=== PATIENT | male | born 1940 | race African-American/Black ===

== ENCOUNTER → 2016-05-27 | Outpatient (CLI) | payer MEDICARE | LOC: OD 14:50 | PROVIDERS: ATTEND Internal Medicine Geriatric Medicine | DX: I50.23 Acute on chronic systolic (congestive) heart failure (principal) | CPT/HCPCS: 36415; 83880 ==

== ENCOUNTER → 2016-06-12 | Outpatient (CLI) | payer MEDICARE | LOC: SP 07:16 | PROVIDERS: ATTEND Internal Medicine Geriatric Medicine | DX: R60.0 Localized edema (principal) | CPT/HCPCS: 93970 ==

== ENCOUNTER 2016-10-11 10:59 | Inpatient (IN) | payer MEDICARE ==
[2016-10-11] MEDS: NORMAL SALINE 1000 ML 1,000 ML IV PRN ×2 (12:04→21:13)
[2016-10-11 12:08] LABS: ABSOLUTE EOSINOPHILS # (AUTO) 0.2 10^3/uL (0.0-0.6); ABSOLUTE LYMPHOCYTES (AUTO) 0.8 10^3/uL (0.5-4.7); ABSOLUTE MONOCYTES (AUTO) 0.5 10^3/uL (0.1-1.4); ABSOLUTE NEUT (AUTO) 3.5 10^3/uL (1.7-8.2); EOSINOPHILS % (AUTO) 3.6 % (0-6); HEMATOCRIT 30.4 % (37.9-51.0); HEMOGLOBIN 9.6 g/dL (13.5-17.0); HGB HCT DIFFERENCE -1.6; LYMPHOCYTES % (AUTO) 15.8 % (13-45); MEAN CORPUSCULAR HEMOGLOBIN 28.3 pg (27.0-33.4); MEAN CORPUSCULAR HGB CONC 31.7 g/dL (32.0-36.0); MEAN CORPUSCULAR VOLUME 89 fl (80-97); MONOCYTES % (AUTO) 10.7 % (3-13); RED BLOOD COUNT 3.41 10^6/uL (4.35-5.55); RED CELL DISTRIBUTION WIDTH 16.1 % (11.5-14.0); SEGMENTED NEUTROPHILS % (AUTO) 68.9 % (42-78)
[2016-10-11 12:28] LABS: ALANINE AMINOTRANSFERASE 24 U/L (21-72); ALKALINE PHOSPHATASE 128 U/L (38-126); ANION GAP 12 (5-19); ASPARTATE AMINO TRANSFERASE 18 U/L (17-59); BILIRUBIN,DIRECT 0.3 mg/dL (0.0-0.4); BILIRUBIN,TOTAL 0.3 mg/dL (0.2-1.3); BLOOD UREA NITROGEN 64 mg/dL (7-20); CALCIUM 10.5 mg/dL (8.4-10.2); CARBON DIOXIDE 24 mmol/L (22-30); CHLORIDE 109 mmol/L (98-107); GLUCOSE 111 mg/dL (75-110); POTASSIUM 5.7 mmol/L (3.6-5.0); SODIUM 144.9 mmol/L (137-145)
--- NOTE | 2016-10-11 13:02 | EKG REPORT ---
SEVERITY:- ABNORMAL ECG - SINUS ARRHYTHMIA, RATE 50-75 LOW VOLTAGE IN FRONTAL LEADS ABNORMAL T, CONSIDER ISCHEMIA, ANT-LAT LEADS : Confirmed by: Fernando Wisdom MD 11-Oct-2016 13:02:13
[2016-10-11 13:23] LABS: APPEARANCE,URINE CLEAR; BILIRUBIN,URINE NEGATIVE (NEGATIVE); GLUCOSE, URINE NEGATIVE (NEGATIVE); KETONES,URINE NEGATIVE (NEGATIVE); LEUKOCYTE ESTERASE,URINE NEGATIVE (NEGATIVE); NITRITE,URINE NEGATIVE (NEGATIVE); PROTEIN,URINE 30 mg/dL (NEGATIVE); URINE SPECIFIC GRAVITY 1.005; UROBILINOGEN,URINE NEGATIVE mg/dL (<2.0)
[2016-10-11] MEDS: HEPARIN SOD (PORCINE) 5,000 UNIT/ML 1 ML SYRINGE SUBCUT SCH ×2 (13:54→21:06)
--- NOTE | 2016-10-11 16:03 | PDOC CONSULTATION ---
Consultation Consult Date: 10/11/16 Attending physician:: HIMA SHELTON Consult reason:: Yong has been Dr. Shelton to see the patient because of acute worsening kidney function. History of Present Illness Admission Date/PCP: 10/11/16 10:59 HIMA SHELTON History of Present Illness: SORIN PINEDA is a 76 year old male who was directly admitted by Dr. Shelton with history of hypertension, coronary artery disease with pacemaker and defibrillator, borderline diabetes and hyperlipidemia who was found to have elevated BUN and creatinine of 61 and 4.36 with estimated GFR of 14 on October 09 associated with potassium of 5.[address] Shelton told me that his baseline creatinine was 1.59 in July. Patient is unaware of any kidney disease. He seems to be pretty much asymptomatic and does not complain of anything. He said he saw Dr. Shelton on the October 09 and had blood drawn and this morning he was called to be admitted here in the hospital. He denies any chest pains , shortness of breath, nausea, vomiting, diarrhea, nor any other pain. Said he is eating good and drinking fluids without any problems. Denies any problem with urination and has not noticed any decrease in urine output or blood in the urine. He denies feeling dehydrated. He denies any known kidney disease no history of kidney stones. He denies any history of enlarged prostate. He denies using any nonsteroidal anti-inflammatory agents. Overall he feels good. He related that he started having leg swelling about 2 months ago and he was started on Lasix 40 mg daily. This swelling has improved significantly after that. He denies any other complaints otherwise. Past Medical History Cardiac Medical History: Reports: Coronary Artery Disease, Hyperlipidemia, Hypertension-primary, Myocardial Infarction Endocrine Medical History: Reports: Diabetes Mellitus Type 2 - Borderline Renal/ Medical History: Reports: Other - Renal cyst Hematology Medical History: Reports Other - Vitamin D deficiency Past Surgical History Past Surgical History: Reports: Coronary Stent, Internal Defibrillator, Orthopedic Surgery - Right clavicle fracture repair, Pacemaker, Other - Head injury requiring metal plate in his skull Social History Information Source: Patient Lives with: Spouse/Significant other Smoking Status: Former Smoker - Quit 50 years ago Last Time Smoked: 1959 Frequency of Alcohol Use: None - Quit 50 years ago Hx Recreational Drug Use: No Drugs: None Hx Prescription Drug Abuse: No Family History Family History: CAD - Mother and father Parental Family History Reviewed: Yes Children Family History Reviewed: Unknown Sibling(s) Family History Reviewed.: Unknown Medication/Allergy Home Medications: Aspirin [Ecotrin 81 mg EC Tablet] 81 mg PO DAILY 10/11/16 Atorvastatin Calcium 40 mg PO QHS 10/11/16 Carvedilol 3.125 mg PO Q12 10/11/16 Furosemide [Lasix] 40 mg PO DAILY 10/11/16 Hydralazine HCl 50 mg PO Q8 10/11/16 Sitagliptin Phosphate [Januvia 25 mg Tablet] 25 mg PO DAILY 10/11/16 Tramadol HCl 50 mg PO Q12 10/11/16 Allergies/Adverse Reactions: No Known Allergies Allergy (Unverified 10/11/16 11:24) Review of Systems All systems: reviewed and no additional remarkable complaints except as stated Review of Systems: Constitutional: ABSENT: chills, fatigue, fever(s), headache(s), weight gain, weight loss Eyes: ABSENT: visual disturbances Ears: ABSENT: hearing changes Cardiovascular: ABSENT: chest pain, dyspnea on exertion, orthropnea, palpitations; admits edema Respiratory: ABSENT: cough, dyspnea, hemoptysis Gastrointestinal: ABSENT: abdominal pain, constipation, diarrhea, hematemesis, hematochezia, nausea, vomiting Genitourinary: ABSENT: dysuria, hematuria Musculoskeletal: ABSENT: joint swelling Integumentary: ABSENT: rash, wounds Neurological: ABSENT: abnormal gait, abnormal speech, confusion, dizziness, focal weakness, numbness, syncope Psychiatric:ABSENT: anxiety, depression Endocrine: ABSENT: cold intolerance, heat intolerance, polydipsia, polyuria Hematologic/Lymphatic: ABSENT: easy bleeding, easy bruising, lymphadenopathy Physical Exam Vital Signs: Temp Pulse Resp BP Pulse Ox 98.6 F 74 16 124/65 99 10/11/16 11:26 10/11/16 11:26 10/11/16 11:26 10/11/16 11:26 10/11/16 11:26 Intake & Output 10/10/16 10/11/16 10/12/16 06:59 06:59 06:59 Weight 92 kg Exam: General appearance: no acute distress, cooperative, well-developed, well- nourished Head exam: PRESENT: atraumatic, normocephalic, he has a scar on his left forehead Eye exam: PRESENT: Conjunctiva slightly pale, EOMI, PERRLA. ABSENT: conjunctival injection, scleral icterus Mouth exam: PRESENT: moist, neck supple, tongue midline Neck exam: PRESENT: full ROM. ABSENT: carotid bruit, JVD, lymphadenopathy, thyromegaly Respiratory exam: PRESENT: clear to auscultation bilaterally. ABSENT: rales, rhonchi, stridor, wheezes Cardiovascular exam: PRESENT: RRR, +S1, +S2. Pacemaker/defibrillator present in the left upper chest ABSENT: systolic murmur Pulses: PRESENT: normal radial pulses, normal dorsalis pedis pulses GI/Abdominal exam: PRESENT: normal bowel sounds, soft. ABSENT: guarding, mass, tenderness Rectal exam: deferred Extremities exam: PRESENT: full ROM. Trace bilateral lower extremity pitting edema ABSENT: calf tenderness Musculoskeletal: PRESENT: full ROM. ABSENT: deformity Neurological exam: PRESENT: alert, Awake, Oriented to person, Oriented to place , Oriented to time, reflexes normal, CN II-XII grossly intact. ABSENT: motor sensory deficit Psychiatric exam: PRESENT: appropriate affect, normal mood. ABSENT: homicidal ideation, suicidal ideation Skin exam: PRESENT: intact, dry, warm. ABSENT: rash Results Laboratory Results: 10/11/16 11:57 10/11/16 11:57 10/11/16 10/11/16 10/11/16 11:57 11:57 13:05 WBC 5.0 RBC 3.41 L Hgb 9.6 L Hct 30.4 L MCV 89 MCH 28.3 MCHC 31.7 L RDW 16.1 H Plt Count 165 Seg Neutrophils % 68.9 Lymphocytes % 15.8 Monocytes % 10.7 Eosinophils % 3.6 Basophils % 1.0 Absolute Neutrophils 3.5 Absolute Lymphocytes 0.8 Absolute Monocytes 0.5 Absolute Eosinophils 0.2 Absolute Basophils 0.0 Sodium 144.9 Potassium 5.7 H Chloride 109 H Carbon Dioxide 24 Anion Gap 12 BUN 64 H Creatinine 4.50 H Est GFR ( Amer) 15 L Est GFR (Non-Af Amer) 13 L Glucose 111 H Calcium 10.5 H Total Bilirubin 0.3 AST 18 ALT 24 Alkaline Phosphatase 128 H Total Protein 7.0 Albumin 4.0 Urine Color STRAW Urine Appearance CLEAR Urine pH 7.0 Ur Specific [place] 1.005 Urine Protein 30 H Urine Glucose (UA) NEGATIVE Urine Ketones NEGATIVE Urine Blood NEGATIVE Urine Nitrite NEGATIVE Ur Leukocyte Esterase NEGATIVE Urine RBC (Auto) 0 Assessment & Plan - Diagnosis (1) Acute kidney injury superimposed on chronic kidney disease Is this a current diagnosis for this admission?: YesPlan: Patient is very asymptomatic. Possible causes of acute worsening of kidney function include possible prerenal azotemia due to possible overdiuresis although patient does not seem to be clinically dehydrated or volume depleted, we need to rule out post renal cause including obstructive uropathy in this elderly gentleman. He has very minimal trace proteinuria and urinalysis and no hematuria so doubt any acute glomerulonephritis. Agree with obtaining kidney ultrasound. Agree with initiation of cautious IV fluid hydration, withholding Lasix or any other diuretics, and avoid nephrotoxic agents. Patient needs to be on low potassium prerenal diet. Also advised the patient and her family at bedside including daughters and granddaughter regarding diet. At this time there is really no indication for any urgent renal replacement therapy. Continue to monitor kidney function and urine output. (2) Hyperkalemia Is this a current diagnosis for this admission?: YesPlan: Low potassium diet. No IV fluids is expected to lower down potassium. (3) Anemia Is this a current diagnosis for this admission?: YesPlan: Needs some anemia workup. Possible causes include anemia of chronic kidney disease or iron deficiency. (4) Hypertension Qualifiers: Hypertension type: essential hypertension Qualified Code(s): I10 - Essential (primary) hypertension Is this a current diagnosis for this admission?: YesPlan: Currently seems controlled. - Notes Notes: Discussed impression with the patient and her daughters and granddaughter at bedside. Also discussed impression with Dr. Shelton. Thank you very much for this consultation. I will follow the patient with you. - Time Time Spent: 50 to 70 Minutes
--- NOTE | 2016-10-11 16:51 | RADIOLOGY REPORT (SQ) ---
EXAM DESCRIPTION: U/S RETROPERITON LTD COMPLETED DATE/TIME: 10/11/2016 4:10 pm REASON FOR STUDY: Acute renal failure COMPARISON: 12/21/2013 TECHNIQUE: Dynamic and static grayscale images acquired of the kidneys and bladder and recorded on P ACS. Additional selected color Doppler and spectral images recorded. LIMITATIONS: None. FINDINGS: RIGHT KIDNEY: 15.5 cm. Normal echogenicity. No solid masses. There is a 75 mm lower pole cyst. No hydronephrosis. No calcifications. LEFT KIDNEY: 8.5 cm. Normal echogenicity. No solid masses. There is a 29 mm upper pole cyst. No hydronephrosis. No calcifications. BLADDER: The urinary bladder was not imaged. OTHER FINDINGS: No other significant finding. IMPRESSION: Renal cysts as described. TECHNICAL DOCUMENTATION: JOB ID: [id number] [employer]- All Rights Reserved
[2016-10-11] MEDS ORDERED: DEXTROSE 40% GEL 15 GM TUBE PO PRN ×2 (16:59)
[2016-10-11] MEDS ORDERED: INSULIN LISPRO 100 UNIT/ML 3 ML VIAL SUBCUT PRN (16:59)
[2016-10-11] MEDS ORDERED: DEXTROSE 50%-WATER 25 GM/50 ML DISP.SYRIN IV PRN ×2 (16:59)
[2016-10-11] MEDS ORDERED: GLUCAGON,HUMAN RECOMB 1 MG INJ IM PRN (16:59)
--- NOTE | 2016-10-11 17:40 | PDOC H&P ---
History of Present Illness Admission Date/PCP: 10/11/16 10:59 HIMA SHELTON History of Present Illness: SORIN PINEDA is a 76 year old male known to my practice who was directly admitted to the hospital due to worsening of his renal function. His recent blood chemistry that was completed on 10/09/2016 revealed serum creatinine at 4.36 with hyperkalemia and serum potassium level at 5.6. Patient denied any chest pain, palpitation, nausea, vomiting or diarrhea. He denied OTC NSAID of similar medication usage. He claimed compliance with his prescribed home medication. He was recent taken off Amlodipine/Benazepril due to increase increase in his serum creatinine and potassium level during his last office visit on 10/09/2016. He denied any hematuria, flank pain or significant change in void urine in terms of volume or character. Hi morbidities include hypertension, Diabetes mellitus type 2, CAD, A.Fib post defibrillator implant and hyperlipidemia. Past Medical History Cardiac Medical History: Reports: Coronary Artery Disease, Myocardial Infarction , Hyperlipidema Endocrine Medical History: Reports: Diabetes Mellitus Type 2 - Borderline Renal/ Medical History: Reports: Other - Renal cyst Past Surgical History Past Surgical History: Reports: Coronary Stent, Internal Defibrillator, Orthopedic Surgery - Right clavicle fracture repair, Pacemaker, Other - Head injury requiring metal plate in his skull Social History Lives with: Spouse/Significant other Smoking Status: Former Smoker - Quit 50 years ago Last Time Smoked: 1959 Frequency of Alcohol Use: None - Quit 50 years ago Hx Recreational Drug Use: No Drugs: None Hx Prescription Drug Abuse: No Family History Parental Family History Reviewed: Yes Children Family History Reviewed: Yes Sibling(s) Family History Reviewed.: Yes Medication/Allergy Home Medications: Aspirin [Ecotrin 81 mg EC Tablet] 81 mg PO DAILY 10/11/16 Atorvastatin Calcium 40 mg PO QHS 10/11/16 Carvedilol 3.125 mg PO Q12 10/11/16 Furosemide [Lasix] 40 mg PO DAILY 10/11/16 Hydralazine HCl 50 mg PO Q8 10/11/16 Sitagliptin Phosphate [Januvia 25 mg Tablet] 25 mg PO DAILY 10/11/16 Tramadol HCl 50 mg PO Q12 10/11/16 Allergies/Adverse Reactions: No Known Allergies Allergy (Unverified 10/11/16 11:24) Review of Systems Constitutional: ABSENT: chills, fever(s), headache(s), weight gain, weight loss Eyes: ABSENT: visual disturbances Ears: ABSENT: hearing changes Nose, Mouth, and Throat: ABSENT: as per HPI, headache(s), mouth pain, sore throat, vertigo, other Cardiovascular: ABSENT: chest pain, dyspnea on exertion, edema, orthropnea, palpitations Respiratory: ABSENT: cough, hemoptysis Gastrointestinal: ABSENT: abdominal pain, constipation, diarrhea, hematemesis, hematochezia, nausea, vomiting Genitourinary: ABSENT: dysuria, hematuria Musculoskeletal: ABSENT: joint swelling Integumentary: ABSENT: rash, wounds Neurological: ABSENT: abnormal gait, abnormal speech, confusion, dizziness, focal weakness, syncope Psychiatric: ABSENT: anxiety, depression, homidical ideation, suicidal ideation Endocrine: ABSENT: cold intolerance, heat intolerance, polydipsia, polyuria Hematologic/Lymphatic: ABSENT: easy bleeding, easy bruising, lymphadenopathy Physical Exam Vital Signs: Temp Pulse Resp BP Pulse Ox 98.5 F 59 L 18 131/97 H 100 10/11/16 15:40 10/11/16 15:40 10/11/16 15:40 10/11/16 15:40 10/11/16 15:40 Intake & Output 10/10/16 10/11/16 10/12/16 06:59 06:59 06:59 Weight 92 kg General appearance: PRESENT: no acute distress, cooperative, obese Head exam: PRESENT: atraumatic, normocephalic Eye exam: PRESENT: conjunctiva pink, EOMI, PERRLA. ABSENT: scleral icterus Ear exam: PRESENT: normal external ear exam Mouth exam: PRESENT: moist, tongue midline Teeth exam: ABSENT: dental caries, dental tenderness, edentulous, poor dentation , other Throat exam: ABSENT: post pharyngeal erythema, tonsillar erythema, tonsillar exudate, tonsillogmegaly, other Neck exam: PRESENT: full ROM. ABSENT: carotid bruit, JVD, lymphadenopathy, thyromegaly Respiratory exam: PRESENT: clear to auscultation amelia Cardiovascular exam: PRESENT: RRR, +S1, +S2 Pulses: PRESENT: normal dorsalis pedis pul, +2 pedal pulses bilateral Vascular exam: PRESENT: normal capillary refill. ABSENT: pallor GI/Abdominal exam: PRESENT: normal bowel sounds, soft. ABSENT: distended, guarding, mass, organolmegaly, rebound, tenderness Rectal exam: PRESENT: deferred Extremities exam: PRESENT: pedal edema - trace Musculoskeletal exam: PRESENT: deformity - related to multiple joints involvement with arthritis Neurological exam: PRESENT: alert, awake, oriented to person, oriented to place , oriented to time, oriented to situation, CN II-XII grossly intact. ABSENT: motor sensory deficit Psychiatric exam: PRESENT: appropriate affect, normal mood. ABSENT: homicidal ideation, suicidal ideation Skin exam: PRESENT: dry, intact, warm. ABSENT: cyanosis, rash Results Laboratory Results: 10/11/16 11:57 10/11/16 11:57 10/11/16 10/11/16 10/11/16 11:57 11:57 13:05 WBC 5.0 RBC 3.41 L Hgb 9.6 L Hct 30.4 L MCV 89 MCH 28.3 MCHC 31.7 L RDW 16.1 H Plt Count 165 Seg Neutrophils % 68.9 Lymphocytes % 15.8 Monocytes % 10.7 Eosinophils % 3.6 Basophils % 1.0 Absolute Neutrophils 3.5 Absolute Lymphocytes 0.8 Absolute Monocytes 0.5 Absolute Eosinophils 0.2 Absolute Basophils 0.0 Sodium 144.9 Potassium 5.7 H Chloride 109 H Carbon Dioxide 24 Anion Gap 12 BUN 64 H Creatinine 4.50 H Est GFR ( Amer) 15 L Est GFR (Non-Af Amer) 13 L Glucose 111 H Calcium 10.5 H Total Bilirubin 0.3 AST 18 ALT 24 Alkaline Phosphatase 128 H Total Protein 7.0 Albumin 4.0 Urine Color STRAW Urine Appearance CLEAR Urine pH 7.0 Ur Specific [place] 1.005 Urine Protein 30 H Urine Glucose (UA) NEGATIVE Urine Ketones NEGATIVE Urine Blood NEGATIVE Urine Nitrite NEGATIVE Ur Leukocyte Esterase NEGATIVE Urine RBC (Auto) 0 Impressions: Renal Ultrasound 10/11/16 11:30 IMPRESSION: Renal cysts as described. Assessment & Plan - Diagnosis (1) Acute kidney injury superimposed on chronic kidney disease Is this a current diagnosis for this admission?: YesPlan: See admitting physician orders. This is probably due to over diuretic usage. Patient will be started on gentle IV fluid hydration with N/S. Monitor renal indices. Request for renal ultrasound and nephrology input. (2) CKD (chronic kidney disease) stage 5, GFR less than 15 ml/min Is this a current diagnosis for this admission?: YesPlan: See admitting physician orders. This may be due to his Diabetes Mellitus type 2 and Hypertension. With IV fluid hydration t is expected thta his will improve. (3) Diabetes mellitus type 2 with complications Qualifiers: Diabetes mellitus penitentiary insulin use: with penitentiary use Qualified Code(s): E11.8 - Type 2 diabetes mellitus with unspecified complications; Z79.4 - halfway (current) use of insulin Is this a current diagnosis for this admission?: YesPlan: See admitting physician orders. (4) Chronic a-fib Is this a current diagnosis for this admission?: YesPlan: See admitting physician orders. (5) Hypertension Qualifiers: Hypertension type: essential hypertension Qualified Code(s): I10 - Essential (primary) hypertension Is this a current diagnosis for this admission?: YesPlan: See admitting physician orders. (6) CAD (coronary atherosclerotic disease) Qualifiers: Coronary Disease-Associated Artery/Lesion type: unspecified vessel or lesion type Associated angina: angina presence unspecified Is this a current diagnosis for this admission?: YesPlan: See admitting physician orders. (7) HLD (hyperlipidemia) Qualifiers: Hyperlipidemia type: pure hypercholesterolemia Qualified Code(s): E78.00 - Pure hypercholesterolemia, unspecified; E78.0 - Pure hypercholesterolemia Is this a current diagnosis for this admission?: YesPlan: See admitting physician orders. (8) Osteoarthritis involving multiple joints on both sides of body Plan: See admitting physician orders. (9) [place] (myocardial infarction) Plan: See admitting physician orders. (10) Anemia Qualifiers: Anemia type: due to chronic kidney disease Chronic kidney disease stage : stage 5, not on chronic dialysis Qualified Code(s): N18.5 - Chronic kidney disease, stage 5; D63.1 - Anemia in chronic kidney disease Is this a current diagnosis for this admission?: YesPlan: See admitting physician orders. (11) Chronic gout Qualifiers: Gout site: unspecified site Presence of tophus: without tophus Is this a current diagnosis for this admission?: YesPlan: See admitting physician orders. (12) Hyperkalemia Is this a current diagnosis for this admission?: YesPlan: See admitting physician orders. - Time Time Spent: Greater than 70 Minutes Medications reviewed and adjusted accordingly: Yes Anticipated discharge: Home Within: Other - Inpatient Certification Based on my medical assessment, after consideration of the patient's comorbidities, presenting symptoms, or acuity I expect that the services needed warrant INPATIENT care.: Yes I certify that my determination is in accordance with my understanding of Medicare's requirements for reasonable and necessary INPATIENT services [42 CFR 412.3e].: Yes Medical Necessity: Need Close Monitoring Due to Risk of Patient Decompensation, Need For IV Fluids, Need For Continuous Telemetry Monitoring, Risk of Complication if Not Cared For in Hospital 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
[2016-10-11 20:10] LABS: CREATINE KINASE MB 1.06 ng/mL (<4.55); TROPONIN I 0.06 ng/mL
[2016-10-11] MEDS: HYDRALAZINE HCL 50 MG TABLET PO SCH (21:06)
[2016-10-11] MEDS: CARVEDILOL 3.125 MG TABLET PO SCH (21:07)
[2016-10-11] MEDS: ATORVASTATIN CALCIUM 40 MG TABLET PO SCH (21:07)
[2016-10-11] MEDS: TRAMADOL HCL 50 MG TABLET PO SCH (21:08)
[2016-10-11] MEDS ORDERED: HYDRALAZINE HCL 25 MG TABLET PO SCH (22:00)
[2016-10-12 01:50] LABS: CREATINE KINASE MB 1.15 ng/mL (<4.55); TROPONIN I 0.07 ng/mL
[2016-10-12] MEDS: HYDRALAZINE HCL 50 MG TABLET PO SCH ×3 (05:14→21:55)
[2016-10-12] MEDS: HEPARIN SOD (PORCINE) 5,000 UNIT/ML 1 ML SYRINGE SUBCUT SCH ×3 (05:18→21:55)
[2016-10-12 08:10] LABS: ABSOLUTE EOSINOPHILS # (AUTO) 0.2 10^3/uL (0.0-0.6); ABSOLUTE LYMPHOCYTES (AUTO) 0.9 10^3/uL (0.5-4.7); ABSOLUTE MONOCYTES (AUTO) 0.5 10^3/uL (0.1-1.4); ABSOLUTE NEUT (AUTO) 3.9 10^3/uL (1.7-8.2); BASOPHILS % (AUTO) 0.6 % (0-2); EOSINOPHILS % (AUTO) 3.5 % (0-6); HEMATOCRIT 32.3 % (37.9-51.0); HEMOGLOBIN 10.4 g/dL (13.5-17.0); HGB HCT DIFFERENCE -1.1; LYMPHOCYTES % (AUTO) 16.7 % (13-45); MEAN CORPUSCULAR HEMOGLOBIN 28.4 pg (27.0-33.4); MEAN CORPUSCULAR HGB CONC 32.1 g/dL (32.0-36.0); MEAN CORPUSCULAR VOLUME 88 fl (80-97); MONOCYTES % (AUTO) 8.4 % (3-13); RED BLOOD COUNT 3.66 10^6/uL (4.35-5.55); RED CELL DISTRIBUTION WIDTH 15.8 % (11.5-14.0); SEGMENTED NEUTROPHILS % (AUTO) 70.8 % (42-78); WHITE BLOOD COUNT 5.5 10^3/uL (4.0-10.5)
[2016-10-12 08:18] LABS: ANION GAP 12 (5-19); BLOOD UREA NITROGEN 58 mg/dL (7-20); CALCIUM 10.8 mg/dL (8.4-10.2); CARBON DIOXIDE 20 mmol/L (22-30); CHLORIDE 110 mmol/L (98-107); CREATINE KINASE 88 U/L (55-170); CREATININE RESULT 3.85 mg/dL (0.52-1.25); GLUCOSE 90 mg/dL (75-110); POTASSIUM 5.5 mmol/L (3.6-5.0); SODIUM 142.3 mmol/L (137-145)
[2016-10-12 08:29] LABS: CREATINE KINASE MB 1.37 ng/mL (<4.55); TROPONIN I 0.071 ng/mL
[2016-10-12] MEDS: SITAGLIPTIN PHOSPHATE 25 MG TABLET PO SCH (09:30)
[2016-10-12] MEDS: CARVEDILOL 3.125 MG TABLET PO SCH ×2 (09:31→21:55)
[2016-10-12] MEDS: LANSOPRAZOLE 30 MG TAB.RAP.DR PO SCH (09:32)
[2016-10-12] MEDS: ASPIRIN 81 MG TABLET, ENT COATED PO SCH (09:32)
[2016-10-12] MEDS: TRAMADOL HCL 50 MG TABLET PO SCH ×2 (09:35→22:03)
[2016-10-12] MEDS ORDERED: DIPHENHYDRAMINE HCL 25 MG CAPSULE ONE (10:46)
[2016-10-12] MEDS ORDERED: METHYLPREDNISOLONE INJ 125 MG/2 ML SDV IV ONE (13:49)
[2016-10-12] MEDS: NORMAL SALINE 1000 ML 1,000 ML IV PRN (14:49)
--- NOTE | 2016-10-12 16:44 | PDOC PROGRESS REPORT ---
Subjective Progress Note for:: 10/12/16 Subjective:: Patient was admitted because of acute kidney injury, he has underlining chronic kidney disease, he developed angioedema of the lips this morning he was on angiotensin converting inhibitor up until Friday of this week when he was taken off due to hyperkalemia and worsening serum creatinine. Physical Exam Vital Signs: Temp Pulse Resp BP Pulse Ox 98.3 F 56 L 16 135/58 H 98 10/12/16 11:04 10/12/16 14:00 10/12/16 11:04 10/12/16 11:04 10/12/16 11:04 Intake & Output 10/11/16 10/12/16 10/13/16 06:59 06:59 06:59 Intake Total 2176 Output Total 2225 Balance -49 Weight 92 kg General appearance: PRESENT: no acute distress, well-developed, well-nourished Head exam: PRESENT: atraumatic, normocephalic Eye exam: PRESENT: conjunctiva pink, EOMI, PERRLA. ABSENT: scleral icterus Ear exam: PRESENT: normal external ear exam Mouth exam: PRESENT: other - Angioedema of the lips Neck exam: PRESENT: full ROM Respiratory exam: PRESENT: clear to auscultation amelia Cardiovascular exam: PRESENT: RRR, +S1, +S2 Pulses: PRESENT: normal dorsalis pedis pul, +2 pedal pulses bilateral Vascular exam: PRESENT: normal capillary refill GI/Abdominal exam: PRESENT: normal bowel sounds, soft Rectal exam: PRESENT: deferred Neurological exam: PRESENT: alert, awake, oriented to person, oriented to place , oriented to time, oriented to situation, CN II-XII grossly intact Psychiatric exam: PRESENT: appropriate affect, normal mood Skin exam: PRESENT: dry, intact, warm Results Laboratory Results: 10/12/16 07:54 10/12/16 07:54 10/12/16 10/12/16 07:54 07:54 WBC 5.5 RBC 3.66 L Hgb 10.4 L Hct 32.3 L MCV 88 MCH 28.4 MCHC 32.1 RDW 15.8 H Plt Count 179 Seg Neutrophils % 70.8 Lymphocytes % 16.7 Monocytes % 8.4 Eosinophils % 3.5 Basophils % 0.6 Absolute Neutrophils 3.9 Absolute Lymphocytes 0.9 Absolute Monocytes 0.5 Absolute Eosinophils 0.2 Absolute Basophils 0.0 Retic Count (auto) 0.96 Absolute Retic 0.035 Sodium 142.3 Potassium 5.5 H Chloride 110 H Carbon Dioxide 20 L Anion Gap 12 BUN 58 H Creatinine 3.85 H Est GFR ( Amer) 19 L Est GFR (Non-Af Amer) 15 L Glucose 90 Calcium 10.8 H Iron 95.6 TIBC 270 % Saturation 35 Ferritin 291.00 Vitamin B12 314.0 Folate 10.10 10/11/16 10/11/16 10/12/16 19:10 19:10 01:10 Creatine Kinase 90 85 CK-MB (CK-2) 1.06 Troponin I 0.060 NT-Pro-B Natriuret Pep 484 H 10/12/16 10/12/16 10/12/16 01:10 07:54 07:54 Creatine Kinase 88 CK-MB (CK-2) 1.15 1.37 Troponin I 0.070 0.071 NT-Pro-B Natriuret Pep Impressions: Renal Ultrasound 10/11/16 11:30 IMPRESSION: Renal cysts as described. Assessment & Plan - Diagnosis (1) Angioedema of lips Qualifiers: Encounter type: initial encounter Qualified Code(s): T78.3XXA - Angioneurotic edema, initial encounter Is this a current diagnosis for this admission?: YesPlan: This is most likely from angiotensin converting enzyme inhibitor though he is no longer presently on LISA inhibitors but he was on LISA inhibitor for many months, this is most likely due to bradykinin related vasodilation and the fact that he is on IV fluid therapy for the acute kidney injury, that clearly precipitates the angioedema, he be given a dose of Solu-Medrol to stabilize the blood vessel and we watch him closely (2) Acute kidney injury Is this a current diagnosis for this admission?: Yes (3) Acute kidney injury superimposed on chronic kidney disease Is this a current diagnosis for this admission?: Yes (4) Anemia Qualifiers: Anemia type: due to chronic kidney disease Chronic kidney disease stage : stage 5, not on chronic dialysis Qualified Code(s): N18.5 - Chronic kidney disease, stage 5; D63.1 - Anemia in chronic kidney disease Is this a current diagnosis for this admission?: Yes (5) CAD (coronary atherosclerotic disease) Qualifiers: Coronary Disease-Associated Artery/Lesion type: unspecified vessel or lesion type Associated angina: angina presence unspecified Is this a current diagnosis for this admission?: Yes (6) Chronic a-fib Is this a current diagnosis for this admission?: Yes (7) Diabetes mellitus type 2 with complications 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
[2016-10-12] MEDS: ATORVASTATIN CALCIUM 40 MG TABLET PO SCH (21:54)
[2016-10-13] MEDS: HEPARIN SOD (PORCINE) 5,000 UNIT/ML 1 ML SYRINGE SUBCUT SCH ×3 (06:59→21:50)
[2016-10-13] MEDS: HYDRALAZINE HCL 50 MG TABLET PO SCH ×3 (06:59→21:50)
[2016-10-13] MEDS: ASPIRIN 81 MG TABLET, ENT COATED PO SCH (10:49)
[2016-10-13] MEDS: SITAGLIPTIN PHOSPHATE 25 MG TABLET PO SCH (10:49)
[2016-10-13] MEDS: CARVEDILOL 3.125 MG TABLET PO SCH ×2 (10:49→21:50)
[2016-10-13] MEDS: LANSOPRAZOLE 30 MG TAB.RAP.DR PO SCH (10:49)
[2016-10-13] MEDS: TRAMADOL HCL 50 MG TABLET PO SCH ×2 (10:50→21:51)
[2016-10-13 13:40] LABS: HEMOGLOBIN 10.2 g/dL (13.5-17.0); HGB HCT DIFFERENCE -1.4; MEAN CORPUSCULAR HEMOGLOBIN 28.5 pg (27.0-33.4); MEAN CORPUSCULAR HGB CONC 31.9 g/dL (32.0-36.0); MEAN CORPUSCULAR VOLUME 89 fl (80-97); RED BLOOD COUNT 3.58 10^6/uL (4.35-5.55); RED CELL DISTRIBUTION WIDTH 15.9 % (11.5-14.0)
[2016-10-13 13:53] LABS: ANION GAP 10 (5-19); BLOOD UREA NITROGEN 62 mg/dL (7-20); CALCIUM 10.8 mg/dL (8.4-10.2); CARBON DIOXIDE 19 mmol/L (22-30); CHLORIDE 112 mmol/L (98-107); CREATININE RESULT 3.72 mg/dL (0.52-1.25); GLUCOSE 120 mg/dL (75-110); POTASSIUM 5.5 mmol/L (3.6-5.0); SODIUM 140.7 mmol/L (137-145)
[2016-10-13 14:18] LABS: WHITE BLOOD COUNT 14.9 10^3/uL (4.0-10.5)
[2016-10-13 14:22] LABS: ANISOCYTOSIS 1+; BASOPHILS % (MANUAL) 0 % (0-2); EOSINOPHILS % (MANUAL) 0 % (0-6); LYMPHOCYTES % (MANUAL) 5 % (13-45); TOTAL CELLS COUNTED 100; TOXIC GRANULATION 1+; TOXIC VACUOLATION PRESENT
[2016-10-13 14:23] LABS: BURR CELLS SLIGHT; OVALOCYTES 2+; POIKILOCYTOSIS 2+; POLYCHROMASIA SLIGHT; SCHISTOCYTES SLIGHT
--- NOTE | 2016-10-13 16:21 | PDOC PROGRESS REPORT ---
Subjective Progress Note for:: 10/20/16 Subjective:: Patient was seen by the bedside yesterday he had severe angioedema of the lips, it was more prominent in the upper lip, he was given a dose of Solu-Medrol, the angioedema is almost completely resolved today. The angioedema is most likely from angiotensin converting enzyme inhibitor, he was on Lotensin up until Friday of last week Physical Exam Vital Signs: Temp Pulse Resp BP Pulse Ox 98.0 F 78 16 123/57 L 97 10/13/16 11:41 10/13/16 11:41 10/13/16 11:41 10/13/16 11:41 10/13/16 11:41 Intake & Output 10/12/16 10/13/16 10/14/16 06:59 06:59 06:59 Intake Total 2176 2779 Output Total 2225 1950 Balance -49 829 Weight 92 kg 93.5 kg General appearance: PRESENT: no acute distress, well-developed, well-nourished Head exam: PRESENT: atraumatic, normocephalic Eye exam: PRESENT: conjunctiva pink, EOMI, PERRLA Ear exam: PRESENT: normal external ear exam Mouth exam: PRESENT: moist, tongue midline Neck exam: PRESENT: full ROM Respiratory exam: PRESENT: clear to auscultation amelia Cardiovascular exam: PRESENT: RRR, +S1, +S2 Vascular exam: PRESENT: normal capillary refill GI/Abdominal exam: PRESENT: normal bowel sounds, soft Rectal exam: PRESENT: deferred Neurological exam: PRESENT: alert, awake, oriented to person, oriented to place , oriented to time, oriented to situation, CN II-XII grossly intact Psychiatric exam: PRESENT: appropriate affect, normal mood Skin exam: PRESENT: dry, intact, warm Results Laboratory Results: 10/13/16 13:00 10/13/16 13:00 10/13/16 10/13/16 13:00 13:00 WBC 14.9 H D RBC 3.58 L Hgb 10.2 L Hct 32.0 L MCV 89 MCH 28.5 MCHC 31.9 L RDW 15.9 H Plt Count 173 Seg Neutrophils % Not Reportable Lymphocytes % Not Reportable Monocytes % Not Reportable Eosinophils % Not Reportable Basophils % Not Reportable Absolute Neutrophils Not Reportable Absolute Lymphocytes Not Reportable Absolute Monocytes Not Reportable Absolute Eosinophils Not Reportable Absolute Basophils Not Reportable Sodium 140.7 Potassium 5.5 H Chloride 112 H Carbon Dioxide 19 L Anion Gap 10 BUN 62 H Creatinine 3.72 H Est GFR ( Amer) 19 L Est GFR (Non-Af Amer) 16 L Glucose 120 H Calcium 10.8 H 10/11/16 10/11/16 10/12/16 19:10 19:10 01:10 Creatine Kinase 90 85 CK-MB (CK-2) 1.06 Troponin I 0.060 NT-Pro-B Natriuret Pep 484 H 10/12/16 10/12/16 10/12/16 01:10 07:54 07:54 Creatine Kinase 88 CK-MB (CK-2) 1.15 1.37 Troponin I 0.070 0.071 NT-Pro-B Natriuret Pep Impressions: Renal Ultrasound 10/11/16 11:30 IMPRESSION: Renal cysts as described. Assessment & Plan - Diagnosis (1) Angioedema of lips Qualifiers: Encounter type: initial encounter Qualified Code(s): T78.3XXA - Angioneurotic edema, initial encounter Is this a current diagnosis for this admission?: Yes (2) Acute kidney injury Is this a current diagnosis for this admission?: Yes (3) Acute kidney injury superimposed on chronic kidney disease Is this a current diagnosis for this admission?: Yes (4) Anemia Qualifiers: Anemia type: due to chronic kidney disease Chronic kidney disease stage : stage 5, not on chronic dialysis Qualified Code(s): N18.5 - Chronic kidney disease, stage 5; D63.1 - Anemia in chronic kidney disease Is this a current diagnosis for this admission?: Yes (5) CAD (coronary atherosclerotic disease) Qualifiers: Coronary Disease-Associated Artery/Lesion type: unspecified vessel or lesion type Associated angina: angina presence unspecified Is this a current diagnosis for this admission?: Yes (6) Chronic a-fib Is this a current diagnosis for this admission?: Yes (7) Diabetes mellitus type 2 with complications Qualifiers: Diabetes mellitus nursing home insulin use: with nursing home use Qualified Code(s): E11.8 - Type 2 diabetes mellitus with unspecified complications Is this a current diagnosis for this admission?: Yes - Plan Summary Plan Summary: Continue treatment
[2016-10-13] MEDS: ATORVASTATIN CALCIUM 40 MG TABLET PO SCH (21:50)
[2016-10-14 05:20] LABS: ABSOLUTE EOSINOPHILS # (AUTO) 0.1 10^3/uL (0.0-0.6); ABSOLUTE LYMPHOCYTES (AUTO) 1.3 10^3/uL (0.5-4.7); ABSOLUTE MONOCYTES (AUTO) 0.9 10^3/uL (0.1-1.4); ABSOLUTE NEUT (AUTO) 8.8 10^3/uL (1.7-8.2); BASOPHILS % (AUTO) 0.4 % (0-2); EOSINOPHILS % (AUTO) 0.8 % (0-6); HEMATOCRIT 30.3 % (37.9-51.0); HEMOGLOBIN 9.7 g/dL (13.5-17.0); HGB HCT DIFFERENCE -1.2; MEAN CORPUSCULAR HEMOGLOBIN 28.4 pg (27.0-33.4); MEAN CORPUSCULAR HGB CONC 32.1 g/dL (32.0-36.0); MEAN CORPUSCULAR VOLUME 88 fl (80-97); MONOCYTES % (AUTO) 8.1 % (3-13); RED BLOOD COUNT 3.43 10^6/uL (4.35-5.55); RED CELL DISTRIBUTION WIDTH 15.7 % (11.5-14.0); SEGMENTED NEUTROPHILS % (AUTO) 78.7 % (42-78); WHITE BLOOD COUNT 11.2 10^3/uL (4.0-10.5)
[2016-10-14] MEDS: HEPARIN SOD (PORCINE) 5,000 UNIT/ML 1 ML SYRINGE SUBCUT SCH ×3 (05:22→21:27)
[2016-10-14] MEDS: HYDRALAZINE HCL 50 MG TABLET PO SCH ×3 (05:22→21:28)
[2016-10-14 06:19] LABS: ANION GAP 9 (5-19); BLOOD UREA NITROGEN 67 mg/dL (7-20); CALCIUM 10.6 mg/dL (8.4-10.2); CARBON DIOXIDE 18 mmol/L (22-30); CHLORIDE 117 mmol/L (98-107); CREATININE RESULT 3.75 mg/dL (0.52-1.25); GLUCOSE 100 mg/dL (75-110); POTASSIUM 5.8 mmol/L (3.6-5.0); SODIUM 144.3 mmol/L (137-145)
--- NOTE | 2016-10-14 08:38 | PDOC PROGRESS REPORT ---
Subjective Progress Note for:: 10/14/16 Subjective:: Patient remain on IV fluid normal saline support. There is reported swelling of his lips since last clinical evaluation necessitating use of IV steroid and Benadryl with significant resolution. He denied any chest pain or difficulty with breathing. Nursing staff reported episodes of exertional tachycardia that resolved with rest and no further intervention. No nausea, vomiting, abdominal pain, diarrhea, or constipation. No fever or chills. Reported satisfactory appetite and p.o intake. Physical Exam Vital Signs: Temp Pulse Resp BP Pulse Ox 97.8 F 78 20 123/58 L 99 10/14/16 04:38 10/14/16 07:00 10/14/16 04:38 10/14/16 04:38 10/14/16 04:38 Intake & Output 10/13/16 10/14/16 10/15/16 06:59 06:59 06:59 Intake Total 2779 2764 Output Total 1950 2225 Balance 829 539 Weight 94.7 kg General appearance: PRESENT: no acute distress, cooperative Head exam: PRESENT: atraumatic, normocephalic Eye exam: PRESENT: conjunctiva pink, EOMI, PERRLA. ABSENT: scleral icterus Mouth exam: PRESENT: moist Respiratory exam: PRESENT: clear to auscultation amelia Cardiovascular exam: PRESENT: RRR. ABSENT: diastolic murmur, rubs, systolic murmur GI/Abdominal exam: PRESENT: normal bowel sounds, soft. ABSENT: distended, guarding, mass, organolmegaly, rebound, tenderness Extremities exam: ABSENT: pedal edema Musculoskeletal exam: PRESENT: ambulatory Neurological exam: PRESENT: alert, awake, oriented to person, oriented to place , oriented to time, oriented to situation, CN II-XII grossly intact. ABSENT: motor sensory deficit Psychiatric exam: PRESENT: appropriate affect, normal mood. ABSENT: homicidal ideation, suicidal ideation Skin exam: PRESENT: dry, intact, warm. ABSENT: cyanosis, rash Results Laboratory Results: 10/14/16 05:05 10/14/16 05:05 10/13/16 10/13/16 10/14/16 13:00 13:00 05:05 WBC 14.9 H D 11.2 H RBC 3.58 L 3.43 L Hgb 10.2 L 9.7 L Hct 32.0 L 30.3 L MCV 89 88 MCH 28.5 28.4 MCHC 31.9 L 32.1 RDW 15.9 H 15.7 H Plt Count 173 174 Seg Neutrophils % Not Reportable 78.7 H Lymphocytes % Not Reportable 12.0 L Monocytes % Not Reportable 8.1 Eosinophils % Not Reportable 0.8 Basophils % Not Reportable 0.4 Absolute Neutrophils Not Reportable 8.8 H Absolute Lymphocytes Not Reportable 1.3 Absolute Monocytes Not Reportable 0.9 Absolute Eosinophils Not Reportable 0.1 Absolute Basophils Not Reportable 0.0 Sodium 140.7 Potassium 5.5 H Chloride 112 H Carbon Dioxide 19 L Anion Gap 10 BUN 62 H Creatinine 3.72 H Est GFR ( Amer) 19 L Est GFR (Non-Af Amer) 16 L Glucose 120 H Calcium 10.8 H 10/14/16 05:05 WBC RBC Hgb Hct MCV MCH MCHC RDW Plt Count Seg Neutrophils % Lymphocytes % Monocytes % Eosinophils % Basophils % Absolute Neutrophils Absolute Lymphocytes Absolute Monocytes Absolute Eosinophils Absolute Basophils Sodium 144.3 Potassium 5.8 H Chloride 117 H Carbon Dioxide 18 L Anion Gap 9 BUN 67 H Creatinine 3.75 H Est GFR ( Amer) 19 L Est GFR (Non-Af Amer) 16 L Glucose 100 Calcium 10.6 H 10/11/16 10/11/16 10/12/16 19:10 19:10 01:10 Creatine Kinase 90 85 CK-MB (CK-2) 1.06 Troponin I 0.060 NT-Pro-B Natriuret Pep 484 H 10/12/16 10/12/16 10/12/16 01:10 07:54 07:54 Creatine Kinase 88 CK-MB (CK-2) 1.15 1.37 Troponin I 0.070 0.071 NT-Pro-B Natriuret Pep Impressions: Renal Ultrasound 10/11/16 11:30 IMPRESSION: Renal cysts as described. Assessment & Plan - Diagnosis (1) Acute kidney injury superimposed on chronic kidney disease Is this a current diagnosis for this admission?: Yes (2) CKD (chronic kidney disease) stage 5, GFR less than 15 ml/min Is this a current diagnosis for this admission?: Yes (3) Diabetes mellitus type 2 with complications Qualifiers: Diabetes mellitus alf insulin use: with alf use Qualified Code(s): E11.8 - Type 2 diabetes mellitus with unspecified complications Is this a current diagnosis for this admission?: Yes (4) Chronic a-fib Is this a current diagnosis for this admission?: Yes (5) Hypertension Qualifiers: Hypertension type: essential hypertension Qualified Code(s): I10 - Essential (primary) hypertension Is this a current diagnosis for this admission?: Yes (6) CAD (coronary atherosclerotic disease) Qualifiers: Coronary Disease-Associated Artery/Lesion type: unspecified vessel or lesion type Associated angina: angina presence unspecified Is this a current diagnosis for this admission?: Yes (7) HLD (hyperlipidemia) Qualifiers: Hyperlipidemia type: pure hypercholesterolemia Qualified Code(s): E78.00 - Pure hypercholesterolemia, unspecified; E78.0 - Pure hypercholesterolemia Is this a current diagnosis for this admission?: Yes (10) Anemia Qualifiers: Anemia type: due to chronic kidney disease Chronic kidney disease stage : stage 5, not on chronic dialysis Qualified Code(s): N18.5 - Chronic kidney disease, stage 5; D63.1 - Anemia in chronic kidney disease Is this a current diagnosis for this admission?: Yes (11) Chronic gout Qualifiers: Gout site: unspecified site Presence of tophus: without tophus Is this a current diagnosis for this admission?: Yes (12) Hyperkalemia Is this a current diagnosis for this admission?: Yes - Time Time Spent with patient: 25-34 minutes Medications reviewed and adjusted accordingly: Yes Anticipated discharge: Home Within: Other - Inpatient Certification Based on my medical assessment, after consideration of the patient's comorbidities, presenting symptoms, or acuity I expect that the services needed warrant INPATIENT care.: Yes I certify that my determination is in accordance with my understanding of Medicare's requirements for reasonable and necessary INPATIENT services [42 CFR 412.3e].: Yes Medical Necessity: Need Close Monitoring Due to Risk of Patient Decompensation, Need For IV Fluids, Risk of Complication if Not Cared For in Hospital 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 Exertional tachycardia may be related to volume depletion with associated orthostasis. I will increase IV fluid rate to 100 mL /hour. Administer Kayexalate 30gm p.o x 1 dose for his worsening hyperkalemia. Maintain on all other current medication management. Continue to monitor orthostatic blood pressure closely.
[2016-10-14] MEDS: ASPIRIN 81 MG TABLET, ENT COATED PO SCH (09:20)
[2016-10-14] MEDS: SITAGLIPTIN PHOSPHATE 25 MG TABLET PO SCH (09:24)
[2016-10-14] MEDS: CARVEDILOL 3.125 MG TABLET PO SCH ×2 (09:24→21:27)
[2016-10-14] MEDS ORDERED: SODIUM POLYSTYRENE SULFONATE 15 GM/60 ML PO ONE (09:30)
[2016-10-14] MEDS: LANSOPRAZOLE 30 MG TAB.RAP.DR PO SCH (09:33)
[2016-10-14] MEDS: TRAMADOL HCL 50 MG TABLET PO SCH ×2 (09:33→21:28)
[2016-10-14] MEDS: NORMAL SALINE 1000 ML 1,000 ML IV PRN ×2 (11:31→19:05)
--- NOTE | 2016-10-14 19:05 | PDOC PROGRESS REPORT ---
Subjective Progress Note for:: 10/14/16 Subjective:: Events over the weekend was noted. Patient had lip swelling requiring Solu- Medrol and Benadryl on Friday. This was thought to be a possible reaction to the LISA inhibitor which was discontinued few days prior to admission. He was taking combination of amlodipine/benazepril starting August 2016 at least from his bottle. Other than that patient said he is doing fine and feeling fine and wanted to go home. He said he is making good amount of urine and does not really have any complaints. Denies any shortness of breath. Physical Exam Vital Signs: Temp Pulse Resp BP Pulse Ox 98.4 F 95 16 147/66 H 98 10/14/16 16:34 10/14/16 16:34 10/14/16 16:34 10/14/16 16:34 10/14/16 16:34 Intake & Output 10/13/16 10/14/16 10/15/16 06:59 06:59 06:59 Intake Total 2779 2764 2375 Output Total 1950 2225 1475 Balance 829 539 900 Weight 94.7 kg Exam: General appearance: PRESENT: no acute distress, cooperative, well-developed, well-nourished Head exam: PRESENT: atraumatic, normocephalic Eye exam: PRESENT: conjunctiva slightly pale, PERRLA. ABSENT: scleral icterus Neck exam: ABSENT: JVD Respiratory exam: PRESENT: Diminished breath sounds. ABSENT: crackles, rales, rhonchi, unlabored, wheezes Cardiovascular exam: PRESENT: Regular rate rhythm -+S1, +S2. ABSENT: diastolic murmur, systolic murmur GI/Abdominal exam: PRESENT: normal bowel sounds, soft. ABSENT: guarding, mass, tenderness Extremities exam: ABSENT: No edema Neurological exam: PRESENT: alert, awake, oriented to person, place and time. Skin exam: PRESENT: dry, warm, Results Laboratory Results: 10/14/16 05:05 10/14/16 05:05 10/14/16 10/14/16 05:05 05:05 WBC 11.2 H RBC 3.43 L Hgb 9.7 L Hct 30.3 L MCV 88 MCH 28.4 MCHC 32.1 RDW 15.7 H Plt Count 174 Seg Neutrophils % 78.7 H Lymphocytes % 12.0 L Monocytes % 8.1 Eosinophils % 0.8 Basophils % 0.4 Absolute Neutrophils 8.8 H Absolute Lymphocytes 1.3 Absolute Monocytes 0.9 Absolute Eosinophils 0.1 Absolute Basophils 0.0 Sodium 144.3 Potassium 5.8 H Chloride 117 H Carbon Dioxide 18 L Anion Gap 9 BUN 67 H Creatinine 3.75 H Est GFR ( Amer) 19 L Est GFR (Non-Af Amer) 16 L Glucose 100 Calcium 10.6 H 10/11/16 10/11/16 10/12/16 19:10 19:10 01:10 Creatine Kinase 90 85 CK-MB (CK-2) 1.06 Troponin I 0.060 NT-Pro-B Natriuret Pep 484 H 10/12/16 10/12/16 10/12/16 01:10 07:54 07:54 Creatine Kinase 88 CK-MB (CK-2) 1.15 1.37 Troponin I 0.070 0.071 NT-Pro-B Natriuret Pep Impressions: Renal Ultrasound 10/11/16 11:30 IMPRESSION: Renal cysts as described. Assessment & Plan - Diagnosis (1) Acute kidney injury superimposed on chronic kidney disease Is this a current diagnosis for this admission?: YesPlan: Patient is very asymptomatic. Possible causes of acute worsening of kidney function include possible prerenal azotemia due to possible overdiuresis although patient does not seem to be clinically dehydrated or volume depleted, no evidence of obstructive uropathy in this elderly gentleman. He has very minimal trace proteinuria and urinalysis and no hematuria so doubt any acute glomerulonephritis. Kidney ultrasound showed bilateral echogenic kidneys with bilateral huge cysts which was previously seen on previous ultrasound prior to this. Patient's kidney function has improved minimally since Friday. He remains to be nonuremic nor fluid overloaded. Agree with initiation of cautious IV fluid hydration, withholding Lasix or any other diuretics, and avoid nephrotoxic agents. Patient needs to be on low potassium prerenal diet. Also advised the patient and her family at bedside including daughters and granddaughter regarding diet. At this time there is really no indication for any urgent renal replacement therapy. Continue to monitor kidney function and urine output. Since patient is clinically stable I think he can be discharged home in the next 24-48 hours provided that his kidney function remains to be stable. (2) Hyperkalemia Is this a current diagnosis for this admission?: YesPlan: Low potassium diet. This seems to be persistent since admission despite IV fluids. Patient was given a dose of Kayexalate by . also inquired today. Patient would need a maintenance medication to lower down the potassium. I will start the patient on veltassa 8.4 g daily tomorrow patient can go home with this. I instructed the patient that this medicine if continued as an outpatient to be taken by itself and should not be taken less than 3 hours after any medication nor less than 3 hours before any medications. We will schedule it early in the morning by itself. (3) Anemia Qualifiers: Anemia type: due to chronic kidney disease Chronic kidney disease stage : stage 5, not on chronic dialysis Qualified Code(s): N18.5 - Chronic kidney disease, stage 5; D63.1 - Anemia in chronic kidney disease Is this a current diagnosis for this admission?: YesPlan: Iron panel is acceptable. We will give him a dose of Procrit 10,000 units subcutaneously 1 dose tonight. (4) Hypertension Qualifiers: Hypertension type: essential hypertension Qualified Code(s): I10 - Essential (primary) hypertension Is this a current diagnosis for this admission?: YesPlan: Currently seems controlled. (5) Hypercalcemia Is this a current diagnosis for this admission?: YesPlan: We will check PTH and phosphorus. - Time Time with patient: 15-25 minutes
[2016-10-14] MEDS ORDERED: EPOETIN ALFA INJ 20000 UNIT/1 ML VIAL (RENAL) SUBCUT ONE (19:30)
[2016-10-14] MEDS: ATORVASTATIN CALCIUM 40 MG TABLET PO SCH (21:27)
[2016-10-15] MEDS: LANSOPRAZOLE 30 MG TAB.RAP.DR PO SCH (05:22)
[2016-10-15] MEDS: HYDRALAZINE HCL 50 MG TABLET PO SCH ×3 (05:22→22:00)
[2016-10-15] MEDS: HEPARIN SOD (PORCINE) 5,000 UNIT/ML 1 ML SYRINGE SUBCUT SCH ×3 (05:22→21:59)
[2016-10-15 05:51] LABS: ABSOLUTE EOSINOPHILS # (AUTO) 0.1 10^3/uL (0.0-0.6); ABSOLUTE MONOCYTES (AUTO) 0.7 10^3/uL (0.1-1.4); ABSOLUTE NEUT (AUTO) 6.2 10^3/uL (1.7-8.2); BASOPHILS % (AUTO) 0.5 % (0-2); EOSINOPHILS % (AUTO) 1.9 % (0-6); HEMOGLOBIN 10.1 g/dL (13.5-17.0); HGB HCT DIFFERENCE -0.7; LYMPHOCYTES % (AUTO) 12.2 % (13-45); MEAN CORPUSCULAR HEMOGLOBIN 28.7 pg (27.0-33.4); MEAN CORPUSCULAR HGB CONC 32.5 g/dL (32.0-36.0); MEAN CORPUSCULAR VOLUME 88 fl (80-97); MONOCYTES % (AUTO) 8.2 % (3-13); RED BLOOD COUNT 3.51 10^6/uL (4.35-5.55); RED CELL DISTRIBUTION WIDTH 16.1 % (11.5-14.0); SEGMENTED NEUTROPHILS % (AUTO) 77.2 % (42-78)
[2016-10-15] MEDS ORDERED: PATIROMER 8.4 GM SUSP PACKET PO SCH (06:00)
[2016-10-15 06:09] LABS: ANION GAP 9 (5-19); BLOOD UREA NITROGEN 53 mg/dL (7-20); CALCIUM 10.3 mg/dL (8.4-10.2); CARBON DIOXIDE 18 mmol/L (22-30); CHLORIDE 116 mmol/L (98-107); CREATININE RESULT 3.16 mg/dL (0.52-1.25); GLUCOSE 89 mg/dL (75-110); PHOSPHORUS 3.6 mg/dL (2.5-4.5); SODIUM 143.3 mmol/L (137-145)
[2016-10-15] MEDS: ASPIRIN 81 MG TABLET, ENT COATED PO SCH (09:11)
[2016-10-15] MEDS: SITAGLIPTIN PHOSPHATE 25 MG TABLET PO SCH (09:11)
[2016-10-15] MEDS: CARVEDILOL 3.125 MG TABLET PO SCH (09:11)
[2016-10-15] MEDS: TRAMADOL HCL 50 MG TABLET PO SCH ×2 (09:13→22:02)
[2016-10-15] MEDS: NORMAL SALINE 1000 ML 1,000 ML IV PRN ×2 (12:08→22:53)
--- NOTE | 2016-10-15 13:41 | PDOC PROGRESS REPORT ---
Subjective Progress Note for:: 10/15/16 Subjective:: Patient had satisfactory response to Kayexalate administration. He remain on IV fluid normal saline support. encouraged oral fluid intake. He denied any chest pain or difficulty with breathing. No nausea, vomiting, abdominal pain, diarrhea , or constipation. No fever or chills. Reported satisfactory appetite and p.o intake. Physical Exam Vital Signs: Temp Pulse Resp BP Pulse Ox 98.6 F 98 17 136/74 H 97 10/15/16 07:12 10/15/16 07:12 10/15/16 07:12 10/15/16 07:12 10/15/16 07:12 Intake & Output 10/14/16 10/15/16 10/16/16 06:59 06:59 06:59 Intake Total 2764 4525 Output Total 2225 2625 Balance 539 1900 Weight 94.7 kg 93.9 kg Physical Exam: General appearance: PRESENT: no acute distress, cooperative Head exam: PRESENT: atraumatic, normocephalic Eye exam: PRESENT: conjunctiva pink, EOMI, PERRLA. ABSENT: scleral icterus Mouth exam: PRESENT: moist Respiratory exam: PRESENT: clear to auscultation amelia Cardiovascular exam: PRESENT: RRR. ABSENT: diastolic murmur, rubs, systolic murmur GI/Abdominal exam: PRESENT: normal bowel sounds, soft. ABSENT: distended, guarding, mass, organomegaly, rebound, tenderness Extremities exam: ABSENT: pedal edema Musculoskeletal exam: PRESENT: ambulatory Neurological exam: PRESENT: alert, awake, oriented to person, oriented to place , oriented to time, oriented to situation, CN II-XII grossly intact. ABSENT: motor sensory deficit Psychiatric exam: PRESENT: appropriate affect, normal mood. ABSENT: homicidal ideation, suicidal ideation Skin exam: PRESENT: dry, intact, warm. ABSENT: cyanosis, rash Results Laboratory Results: 10/15/16 05:43 10/15/16 05:43 10/12/16 10/15/16 10/15/16 07:54 05:43 05:43 WBC 8.0 RBC 3.51 L Hgb 10.1 L Hct 31.0 L MCV 88 MCH 28.7 MCHC 32.5 RDW 16.1 H Plt Count 165 Seg Neutrophils % 77.2 Lymphocytes % 12.2 L Monocytes % 8.2 Eosinophils % 1.9 Basophils % 0.5 Absolute Neutrophils 6.2 Absolute Lymphocytes 1.0 Absolute Monocytes 0.7 Absolute Eosinophils 0.1 Absolute Basophils 0.0 Sodium 143.3 Potassium 5.0 Chloride 116 H Carbon Dioxide 18 L Anion Gap 9 BUN 53 H Creatinine 3.16 H Est GFR ( Amer) 23 L Est GFR (Non-Af Amer) 19 L Glucose 89 Calcium 10.3 H Phosphorus 3.6 Transferrin 206 10/11/16 10/11/16 10/12/16 19:10 19:10 01:10 Creatine Kinase 90 85 CK-MB (CK-2) 1.06 Troponin I 0.060 NT-Pro-B Natriuret Pep 484 H 10/12/16 10/12/16 10/12/16 01:10 07:54 07:54 Creatine Kinase 88 CK-MB (CK-2) 1.15 1.37 Troponin I 0.070 0.071 NT-Pro-B Natriuret Pep Impressions: Renal Ultrasound 10/11/16 11:30 IMPRESSION: Renal cysts as described. 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 care home use Qualified Code(s): E11.8 - Type 2 diabetes mellitus with unspecified complications Is this a current diagnosis for this admission?: Yes (4) Chronic a-fib Is this a current diagnosis for this admission?: Yes (5) Hypertension Qualifiers: Hypertension type: essential hypertension Qualified Code(s): I10 - Essential (primary) hypertension Is this a current diagnosis for this admission?: Yes (6) CAD (coronary atherosclerotic disease) Qualifiers: Coronary Disease-Associated Artery/Lesion type: unspecified vessel or lesion type Associated angina: angina presence unspecified Is this a current diagnosis for this admission?: Yes (7) HLD (hyperlipidemia) Qualifiers: Hyperlipidemia type: pure hypercholesterolemia Qualified Code(s): E78.00 - Pure hypercholesterolemia, unspecified; E78.0 - Pure hypercholesterolemia Is this a current diagnosis for this admission?: Yes (10) Anemia Qualifiers: Anemia type: due to chronic kidney disease Chronic kidney disease stage : stage 5, not on chronic dialysis Qualified Code(s): N18.5 - Chronic kidney disease, stage 5; D63.1 - Anemia in chronic kidney disease Is this a current diagnosis for this admission?: Yes (11) Chronic gout Qualifiers: Gout site: unspecified site Presence of tophus: without tophus Is this a current diagnosis for this admission?: Yes (12) Hyperkalemia Is this a current diagnosis for this admission?: Yes - Time Time Spent with patient: 25-34 minutes Medications reviewed and adjusted accordingly: Yes Anticipated discharge: Home Within: within 24 hours - Inpatient Certification Based on my medical assessment, after consideration of the patient's comorbidities, presenting symptoms, or acuity I expect that the services needed warrant INPATIENT care.: Yes I certify that my determination is in accordance with my understanding of Medicare's requirements for reasonable and necessary INPATIENT services [42 CFR 412.3e].: Yes Medical Necessity: Need Close Monitoring Due to Risk of Patient Decompensation, Need For IV Fluids, Need For Continuous Telemetry Monitoring, Risk of Complication if Not Cared For in Hospital 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 Obtain BMP in AM if serum creatinine continue on downward trend, patient is agreeable to discharge home tomorrow. Instrumentation Chemist input appreciated.
--- NOTE | 2016-10-15 15:29 | PDOC PROGRESS REPORT ---
Subjective Progress Note for:: 10/15/16 Subjective:: Patient continues to do well and has no new complaints. He took the first dose of veltassa this morning. He tolerates it without any problems. His kidney function continues to get better as well. Denies any shortness of breath no chest pain. Physical Exam Vital Signs: Temp Pulse Resp BP Pulse Ox 98.6 F 98 17 136/74 H 97 10/15/16 07:12 10/15/16 07:12 10/15/16 07:12 10/15/16 07:12 10/15/16 07:12 Intake & Output 10/14/16 10/15/16 10/16/16 06:59 06:59 06:59 Intake Total 2764 4525 Output Total 2225 2625 Balance 539 1900 Weight 94.7 kg 93.9 kg Exam: General appearance: PRESENT: no acute distress, cooperative, well-developed, well-nourished Head exam: PRESENT: atraumatic, normocephalic Eye exam: PRESENT: conjunctiva pink, PERRLA. ABSENT: scleral icterus Neck exam: ABSENT: JVD Respiratory exam: PRESENT: Diminished breath sounds. ABSENT: crackles, rales, rhonchi, unlabored, wheezes Cardiovascular exam: PRESENT: Regular rate rhythm -+S1, +S2. ABSENT: diastolic murmur, systolic murmur GI/Abdominal exam: PRESENT: normal bowel sounds, soft. ABSENT: guarding, mass, tenderness Extremities exam: ABSENT: No edema Neurological exam: PRESENT: alert, awake, oriented to person, place and time. Skin exam: PRESENT: dry, warm, Results Laboratory Results: 10/15/16 05:43 10/15/16 05:43 10/12/16 10/15/16 10/15/16 07:54 05:43 05:43 WBC 8.0 RBC 3.51 L Hgb 10.1 L Hct 31.0 L MCV 88 MCH 28.7 MCHC 32.5 RDW 16.1 H Plt Count 165 Seg Neutrophils % 77.2 Lymphocytes % 12.2 L Monocytes % 8.2 Eosinophils % 1.9 Basophils % 0.5 Absolute Neutrophils 6.2 Absolute Lymphocytes 1.0 Absolute Monocytes 0.7 Absolute Eosinophils 0.1 Absolute Basophils 0.0 Sodium 143.3 Potassium 5.0 Chloride 116 H Carbon Dioxide 18 L Anion Gap 9 BUN 53 H Creatinine 3.16 H Est GFR ( Amer) 23 L Est GFR (Non-Af Amer) 19 L Glucose 89 Calcium 10.3 H Phosphorus 3.6 Transferrin 206 10/11/16 10/11/16 10/12/16 19:10 19:10 01:10 Creatine Kinase 90 85 CK-MB (CK-2) 1.06 Troponin I 0.060 NT-Pro-B Natriuret Pep 484 H 10/12/16 10/12/16 10/12/16 01:10 07:54 07:54 Creatine Kinase 88 CK-MB (CK-2) 1.15 1.37 Troponin I 0.070 0.071 NT-Pro-B Natriuret Pep Impressions: Renal Ultrasound 10/11/16 11:30 IMPRESSION: Renal cysts as described. Assessment & Plan - Diagnosis (1) Acute kidney injury superimposed on chronic kidney disease Is this a current diagnosis for this admission?: YesPlan: Patient is very asymptomatic. Possible causes of acute worsening of kidney function include possible prerenal azotemia due to possible overdiuresis although patient does not seem to be clinically dehydrated or volume depleted, no evidence of obstructive uropathy in this elderly gentleman. He has very minimal trace proteinuria and urinalysis and no hematuria so doubt any acute glomerulonephritis. Kidney ultrasound showed bilateral echogenic kidneys with bilateral huge cysts which was previously seen on previous ultrasound prior to this. Patient's kidney function has improved slowly since Friday. He remains to be nonuremic nor fluid overloaded. Agree with initiation of cautious IV fluid hydration, withholding Lasix or any other diuretics, and avoid nephrotoxic agents. Patient needs to be on low potassium prerenal diet. Also advised the patient and her family at bedside including daughters and granddaughter regarding diet. At this time there is really no indication for any urgent renal replacement therapy. Continue to monitor kidney function and urine output. Since patient is clinically stable I think he can be discharged home in the next 24-48 hours provided that his kidney function remains to be stable. (2) Hyperkalemia Is this a current diagnosis for this admission?: YesPlan: Low potassium diet. This seems to be persistent since admission despite IV fluids. I started him on veltassa 8.4 g daily. Patient can go home with this. I instructed the patient that this medicine if continued as an outpatient to be taken by itself and should not be taken less than 3 hours after any medication nor less than 3 hours before any medications. We will schedule it early in the morning by itself. I will write prescription for him to be discharged with it. (3) Anemia Qualifiers: Anemia type: due to chronic kidney disease Chronic kidney disease stage : stage 5, not on chronic dialysis Qualified Code(s): N18.5 - Chronic kidney disease, stage 5; D63.1 - Anemia in chronic kidney disease Is this a current diagnosis for this admission?: YesPlan: Slightly improved. One dose of Procrit given yesterday. (4) Hypertension Qualifiers: Hypertension type: essential hypertension Qualified Code(s): I10 - Essential (primary) hypertension Is this a current diagnosis for this admission?: YesPlan: Currently seems controlled. (5) Hypercalcemia Is this a current diagnosis for this admission?: YesPlan: Patient phosphorus is normal and PTH is currently pending. Calcium level slightly improved today. - Notes Notes: From nephrology standpoint I think patient can be discharged home tomorrow. I will be happy to see him for follow-up in my office in the next 2-3 weeks with repeat CBC and BMP. Prescription for veltassa will be in the chart. - Time Time with patient: 15-25 minutes
[2016-10-15] MEDS: ATORVASTATIN CALCIUM 40 MG TABLET PO SCH (22:01)
[2016-10-15] MEDS: CARVEDILOL 6.25 MG TABLET PO SCH (22:02)
[2016-10-16] MEDS: HEPARIN SOD (PORCINE) 5,000 UNIT/ML 1 ML SYRINGE SUBCUT SCH ×2 (05:00→14:00)
[2016-10-16] MEDS: HYDRALAZINE HCL 50 MG TABLET PO SCH ×2 (05:01→14:00)
[2016-10-16] MEDS: LANSOPRAZOLE 30 MG TAB.RAP.DR PO SCH (05:02)
[2016-10-16 06:01] LABS: ANION GAP 8 (5-19); BLOOD UREA NITROGEN 43 mg/dL (7-20); CALCIUM 10.2 mg/dL (8.4-10.2); CARBON DIOXIDE 18 mmol/L (22-30); CHLORIDE 114 mmol/L (98-107); CREATININE RESULT 2.98 mg/dL (0.52-1.25); GLUCOSE 96 mg/dL (75-110); POTASSIUM 4.6 mmol/L (3.6-5.0); SODIUM 139.7 mmol/L (137-145)
[2016-10-16] MEDS ORDERED: PATIROMER 8.4 GM SUSP PACKET PO SCH ×2 (10:00→18:00)
[2016-10-16] MEDS: SITAGLIPTIN PHOSPHATE 25 MG TABLET PO SCH (10:57)
[2016-10-16] MEDS: CARVEDILOL 6.25 MG TABLET PO SCH (10:58)
[2016-10-16] MEDS: ASPIRIN 81 MG TABLET, ENT COATED PO SCH (10:58)
[2016-10-16] MEDS: TRAMADOL HCL 50 MG TABLET PO SCH (10:59)
--- NOTE | 2016-10-16 18:48 | PDOC DISCHARGE SUMMARY ---
General - Admit/Disc Date/PCP Admission Date/Primary Care Provider: 10/11/16 10:59 HIMA SHELTON Discharge Date: 10/16/16 - Discharge Diagnosis (1) Acute kidney injury superimposed on chronic kidney disease Is this a current diagnosis for this admission?: Yes (2) CKD (chronic kidney disease) stage 5, GFR less than 15 ml/min Is this a current diagnosis for this admission?: Yes (3) Diabetes mellitus type 2 with complications Is this a current diagnosis for this admission?: Yes (4) Chronic a-fib Is this a current diagnosis for this admission?: Yes (5) Hypertension Is this a current diagnosis for this admission?: Yes (6) CAD (coronary atherosclerotic disease) Is this a current diagnosis for this admission?: Yes (7) HLD (hyperlipidemia) Is this a current diagnosis for this admission?: Yes (10) Anemia Is this a current diagnosis for this admission?: Yes (11) Chronic gout Is this a current diagnosis for this admission?: Yes (12) Hyperkalemia Is this a current diagnosis for this admission?: Yes - Additional Information Discharge Diet: Cardiac, Diabetic, Other (Comments) - Prerenal diet Discharge Activity: Activity As Tolerated Home Medications: Aspirin [Ecotrin 81 mg EC Tablet] 81 mg PO DAILY 10/11/16 Atorvastatin Calcium 40 mg PO QHS 10/11/16 Hydralazine HCl 50 mg PO Q8 10/11/16 Sitagliptin Phosphate [Januvia 25 mg Tablet] 25 mg PO DAILY 10/11/16 Tramadol HCl 50 mg PO Q12 10/11/16 Carvedilol [Coreg 6.25 mg Tablet] 6.25 mg PO Q12 #60 tablet 10/16/16 Patiromer Calcium Sorbitex [Veltassa 8.4 gm Susp Packet] 8.4 gm PO DAILY #30 packet 10/16/16 History of Present Illness History of Present Illness: SORIN PINEDA is a 76 year old male known to my practice who was directly admitted to the hospital due to worsening of his renal function. His recent blood chemistry that was completed on 10/09/2016 revealed serum creatinine at 4.36 with hyperkalemia and serum potassium level at 5.6. Patient denied any chest pain, palpitation, nausea, vomiting or diarrhea. He denied OTC NSAID of similar medication usage. He claimed compliance with his prescribed home medication. He was recent taken off Amlodipine/Benazepril due to increase increase in his serum creatinine and potassium level during his last office visit on 10/09/2016. He denied any hematuria, flank pain or significant change in void urine in terms of volume or character. His morbidities include hypertension, Diabetes mellitus type 2, CAD, A.Fib post defibrillator implant and hyperlipidemia. Hospital Course Hospital Course: Patient did respond to gentle IV hydration with normal saline infusion and withholding Furosemide. He was seen in consultation by Dr. Jean, strategic sourcing consultant. His serum creatinine did improved and was 2. before discharge. He will remain on cardiac, diabetic ad pre-renal diet. We will continue to hold off on Furosemide usage until follow up in the office. Patient was instructed on post discharge dietary limitation and daily weighing instruction. He will follow up in office with me and Dr Jean as instructed upon discharge. Physical Exam Vital Signs: Temp Pulse Resp BP Pulse Ox 98.7 F 84 18 131/72 H 95 10/16/16 15:35 10/16/16 15:35 10/16/16 15:35 10/16/16 15:35 10/16/16 15:35 Intake & Output 10/15/16 10/16/16 10/17/16 06:59 06:59 06:59 Intake Total 4525 5053 375 Output Total 2625 2125 1200 Balance 1900 2928 -825 Weight 93.9 kg 94.7 kg Physical Exam: General appearance: PRESENT: no acute distress, cooperative Head exam: PRESENT: atraumatic, normocephalic Eye exam: PRESENT: conjunctiva pink, EOMI, PERRLA. ABSENT: scleral icterus Mouth exam: PRESENT: moist Respiratory exam: PRESENT: clear to auscultation amelia Cardiovascular exam: PRESENT: RRR. ABSENT: diastolic murmur, rubs, systolic murmur GI/Abdominal exam: PRESENT: normal bowel sounds, soft. ABSENT: distended, guarding, mass, organomegaly, rebound, tenderness Extremities exam: ABSENT: pedal edema Musculoskeletal exam: PRESENT: ambulatory Neurological exam: PRESENT: alert, awake, oriented to person, oriented to place , oriented to time, oriented to situation, CN II-XII grossly intact. ABSENT: motor sensory deficit Psychiatric exam: PRESENT: appropriate affect, normal mood. ABSENT: homicidal ideation, suicidal ideation Skin exam: PRESENT: dry, intact, warm. ABSENT: cyanosis, rash Results Laboratory Results: 10/15/16 05:43 10/16/16 05:12 10/15/16 10/16/16 05:43 05:12 Sodium 139.7 Potassium 4.6 Chloride 114 H Carbon Dioxide 18 L Anion Gap 8 BUN 43 H Creatinine 2.98 H Est GFR ( Amer) 25 L Est GFR (Non-Af Amer) 21 L Glucose 96 Calcium 10.2 PTH Intact 136 H 10/11/16 10/11/16 10/12/16 19:10 19:10 01:10 Creatine Kinase 90 85 CK-MB (CK-2) 1.06 Troponin I 0.060 NT-Pro-B Natriuret Pep 484 H 10/12/16 10/12/16 10/12/16 01:10 07:54 07:54 Creatine Kinase 88 CK-MB (CK-2) 1.15 1.37 Troponin I 0.070 0.071 NT-Pro-B Natriuret Pep Impressions: Renal Ultrasound 10/11/16 11:30 IMPRESSION: Renal cysts as described. Qualifiers PATEINT BEING DISCHARGED WITH ANY OF THE FOLLOWING DIAGNOSIS?: No Plan Discharge Plan: Discharge home today. Follow up with me and Dr. Jean as instructed upon discharge. Time Spent: Greater than 30 Minutes - I spent more than 50% of this time in discussing post discharge care plan and medication reconciliation as well as dietary limitation.
[2016-10-16 18:56] VITALS: BP 124/64
== END 2016-10-16 19:48 | disposition home or self-care (01) | DRG 683 ==
LOC: 3S 10:59
PROVIDERS: ADMIT Internal Medicine Geriatric Medicine; ATTEND Internal Medicine Geriatric Medicine
DX: N17.9 Acute kidney failure, unspecified (principal); Q61.02 Congenital multiple renal cysts; I12.0 Hypertensive chronic kidney disease with stage 5 chronic kidney disease or end stage renal disease; E11.22 Type 2 diabetes mellitus with diabetic chronic kidney disease; E78.5 Hyperlipidemia, unspecified; I25.10 Atherosclerotic heart disease of native coronary artery without angina pectoris; E83.52 Hypercalcemia; E55.9 Vitamin D deficiency, unspecified; N18.5 Chronic kidney disease, stage 5; I48.2 Chronic atrial fibrillation; D63.1 Anemia in chronic kidney disease; M1A.9XX0 Chronic gout, unspecified, without tophus (tophi); M15.3 Secondary multiple arthritis; E87.5 Hyperkalemia; T78.3XXA Angioneurotic edema, initial encounter; T50.995A Adverse effect of other drugs, medicaments and biological substances, initial encounter; I25.2 Old myocardial infarction; Z79.82 Long term (current) use of aspirin; Z79.899 Other long term (current) drug therapy; Z95.0 Presence of cardiac pacemaker; Z95.5 Presence of coronary angioplasty implant and graft; Z87.891 Personal history of nicotine dependence; Z82.49 Family history of ischemic heart disease and other diseases of the circulatory system
CPT/HCPCS: 36415; 76775; 80048; 80053; 81001; 82550; 82553; 82607; 82728; 82746; 82962; 83540; 83550; 83880; 83970; 84100; 84466; 84484; 85025; 85045; 93005; 93010; J1644; J1815; J2930; J3490; J7030; Q4081

== ENCOUNTER → 2016-10-24 | Outpatient (CLI) | payer MEDICARE ==
[2016-10-24 08:47] LABS: ANION GAP 10 (5-19); BLOOD UREA NITROGEN 48 mg/dL (7-20); CALCIUM 10.9 mg/dL (8.4-10.2); CARBON DIOXIDE 23 mmol/L (22-30); CHLORIDE 112 mmol/L (98-107); CREATININE RESULT 3.84 mg/dL (0.52-1.25); GLUCOSE 88 mg/dL (75-110); POTASSIUM 4.7 mmol/L (3.6-5.0); SODIUM 145.2 mmol/L (137-145)
== END ==
LOC: OD 07:30
PROVIDERS: ATTEND Internal Medicine Geriatric Medicine
DX: N18.5 Chronic kidney disease, stage 5 (principal)
CPT/HCPCS: 36415; 80048

== ENCOUNTER → 2016-11-04 | Outpatient (CLI) | payer MEDICARE ==
[2016-11-04 08:38] LABS: ABSOLUTE EOSINOPHILS # (AUTO) 0.1 10^3/uL (0.0-0.6); ABSOLUTE LYMPHOCYTES (AUTO) 0.8 10^3/uL (0.5-4.7); ABSOLUTE MONOCYTES (AUTO) 0.5 10^3/uL (0.1-1.4); ABSOLUTE NEUT (AUTO) 2.3 10^3/uL (1.7-8.2); BASOPHILS % (AUTO) 0.8 % (0-2); EOSINOPHILS % (AUTO) 3.9 % (0-6); HEMATOCRIT 31.3 % (37.9-51.0); HGB HCT DIFFERENCE -1.3; LYMPHOCYTES % (AUTO) 20.6 % (13-45); MEAN CORPUSCULAR HEMOGLOBIN 28.9 pg (27.0-33.4); MEAN CORPUSCULAR HGB CONC 32.1 g/dL (32.0-36.0); MEAN CORPUSCULAR VOLUME 90 fl (80-97); MONOCYTES % (AUTO) 13.8 % (3-13); RED BLOOD COUNT 3.48 10^6/uL (4.35-5.55); RED CELL DISTRIBUTION WIDTH 16.3 % (11.5-14.0); SEGMENTED NEUTROPHILS % (AUTO) 60.9 % (42-78); WHITE BLOOD COUNT 3.8 10^3/uL (4.0-10.5)
[2016-11-04 09:18] LABS: ANION GAP 10 (5-19); BLOOD UREA NITROGEN 43 mg/dL (7-20); CALCIUM 10.9 mg/dL (8.4-10.2); CARBON DIOXIDE 23 mmol/L (22-30); CHLORIDE 112 mmol/L (98-107); CREATININE RESULT 3.67 mg/dL (0.52-1.25); GLUCOSE 94 mg/dL (75-110); POTASSIUM 5.1 mmol/L (3.6-5.0); SODIUM 145.4 mmol/L (137-145)
== END ==
LOC: OD 07:26
PROVIDERS: ATTEND Internal Medicine Nephrology
DX: N18.3 Chronic kidney disease, stage 3 (moderate) (principal); D63.1 Anemia in chronic kidney disease
CPT/HCPCS: 36415; 80048; 85025

== ENCOUNTER → 2016-12-09 | Outpatient (CLI) | payer MEDICARE ==
[2016-12-09 09:10] LABS: ABSOLUTE EOSINOPHILS # (AUTO) 0.2 10^3/uL (0.0-0.6); ABSOLUTE LYMPHOCYTES (AUTO) 0.8 10^3/uL (0.5-4.7); ABSOLUTE MONOCYTES (AUTO) 0.4 10^3/uL (0.1-1.4); ABSOLUTE NEUT (AUTO) 2.8 10^3/uL (1.7-8.2); BASOPHILS % (AUTO) 0.7 % (0-2); EOSINOPHILS % (AUTO) 4.5 % (0-6); HEMATOCRIT 29.4 % (37.9-51.0); HEMOGLOBIN 9.7 g/dL (13.5-17.0); HGB HCT DIFFERENCE -0.3; LYMPHOCYTES % (AUTO) 18.8 % (13-45); MEAN CORPUSCULAR HEMOGLOBIN 28.3 pg (27.0-33.4); MEAN CORPUSCULAR HGB CONC 32.9 g/dL (32.0-36.0); MEAN CORPUSCULAR VOLUME 86 fl (80-97); RED BLOOD COUNT 3.42 10^6/uL (4.35-5.55); RED CELL DISTRIBUTION WIDTH 15.4 % (11.5-14.0); WHITE BLOOD COUNT 4.2 10^3/uL (4.0-10.5)
[2016-12-09 09:39] LABS: ALBUMIN 3.7 g/dL (3.5-5.0); ANION GAP 11 (5-19); BLOOD UREA NITROGEN 34 mg/dL (7-20); CALCIUM 10.5 mg/dL (8.4-10.2); CARBON DIOXIDE 25 mmol/L (22-30); CHLORIDE 110 mmol/L (98-107); GLUCOSE 95 mg/dL (75-110); MAGNESIUM 1.8 mg/dL (1.6-2.3); PHOSPHORUS 3.3 mg/dL (2.5-4.5); POTASSIUM 4.1 mmol/L (3.6-5.0); SODIUM 145.5 mmol/L (137-145)
[2016-12-09 09:43] LABS: APPEARANCE,URINE CLEAR; BILIRUBIN,URINE NEGATIVE (NEGATIVE); GLUCOSE, URINE NEGATIVE (NEGATIVE); KETONES,URINE NEGATIVE (NEGATIVE); LEUKOCYTE ESTERASE,URINE NEGATIVE (NEGATIVE); NITRITE,URINE NEGATIVE (NEGATIVE); PROTEIN,URINE 100 mg/dL (NEGATIVE); URINE SPECIFIC GRAVITY 1.012; UROBILINOGEN,URINE NEGATIVE mg/dL (<2.0)
[2016-12-10 07:09] LABS: PTH INTACT 146 pg/mL (15-65); VITAMIN D 25-HYDROXY 35.9 ng/mL (30.0-100.0)
[2016-12-10 15:38] LABS: A/G RATIO 1.3 (0.7-1.7); ALBUMIN 2 3.5 g/dL (2.9-4.4); ALPHA-1-GLOBULIN 2 0.2 g/dL (0.0-0.4); PROTEIN TOTAL SERUM 6.3 g/dL (6.0-8.5)
[2016-12-11 16:41] LABS: ALBUMIN UR 48.7 % (.); GAMMA GLOBULIN URINE 15.7 % (.); M-SPIKE % UR Not Observed % (Not Observed)
== END ==
LOC: OD 08:02
PROVIDERS: ATTEND Internal Medicine Nephrology
DX: N18.4 Chronic kidney disease, stage 4 (severe) (principal); D63.1 Anemia in chronic kidney disease; E83.52 Hypercalcemia
CPT/HCPCS: 36415; 80048; 81001; 82040; 82043; 82306; 82397; 82570; 83735; 83970; 84100; 84165; 84166; 85025

== ENCOUNTER → 2017-03-19 | Outpatient (CLI) | payer MEDICARE ==
[2017-03-19 11:01] LABS: ABSOLUTE EOSINOPHILS # (AUTO) 0.2 10^3/uL (0.0-0.6); ABSOLUTE MONOCYTES (AUTO) 0.6 10^3/uL (0.1-1.4); ABSOLUTE NEUT (AUTO) 3.4 10^3/uL (1.7-8.2); BASOPHILS % (AUTO) 0.5 % (0-2); EOSINOPHILS % (AUTO) 4.2 % (0-6); HEMATOCRIT 32.4 % (37.9-51.0); HEMOGLOBIN 10.2 g/dL (13.5-17.0); LYMPHOCYTES % (AUTO) 18.4 % (13-45); MEAN CORPUSCULAR HEMOGLOBIN 27.2 pg (27.0-33.4); MEAN CORPUSCULAR HGB CONC 31.6 g/dL (32.0-36.0); MEAN CORPUSCULAR VOLUME 86 fl (80-97); PLATELET COUNT 159 10^3/uL (150-450); RED BLOOD COUNT 3.76 10^6/uL (4.35-5.55); RED CELL DISTRIBUTION WIDTH 16.5 % (11.5-14.0); SEGMENTED NEUTROPHILS % (AUTO) 65.9 % (42-78); TOTAL CELLS COUNTED % (AUTO) 100 %; WHITE BLOOD COUNT 5.2 10^3/uL (4.0-10.5)
[2017-03-19 11:19] LABS: ANION GAP 11 (5-19); BLOOD UREA NITROGEN 42 mg/dL (7-20); CALCIUM 11.3 mg/dL (8.4-10.2); CARBON DIOXIDE 27 mmol/L (22-30); CHLORIDE 111 mmol/L (98-107); GLUCOSE 104 mg/dL (75-110); IRON(TIBC) 42.6 ug/dL (49-181); POTASSIUM 5.2 mmol/L (3.6-5.0); SODIUM 149.4 mmol/L (137-145)
[2017-03-20 12:38] LABS: CREATININE URINE 67.3 mg/dL (Not Estab.); MICROALBUMIN URINE 309.7 ug/mL (Not Estab.)
== END ==
LOC: OD 10:09
PROVIDERS: ATTEND Internal Medicine Nephrology
DX: I12.9 Hypertensive chronic kidney disease with stage 1 through stage 4 chronic kidney disease, or unspecified chronic kidney disease (principal); N18.4 Chronic kidney disease, stage 4 (severe); D63.1 Anemia in chronic kidney disease; E87.5 Hyperkalemia; E11.9 Type 2 diabetes mellitus without complications; E55.9 Vitamin D deficiency, unspecified; E21.3 Hyperparathyroidism, unspecified; E83.52 Hypercalcemia
CPT/HCPCS: 36415; 80048; 82043; 82570; 83540; 83550; 83970; 85025

== ENCOUNTER → 2017-03-26 | Outpatient (CLI) | payer MEDICARE ==
--- NOTE | 2017-03-26 15:27 | RADIOLOGY REPORT (SQ) ---
EXAM DESCRIPTION: NM PARATHYROID IMAGING COMPLETED DATE/TIME: 03/26/2017 12:19 pm REASON FOR STUDY: HYPERPARATHYROIDISM (E21.3), HYPERCALCEMIA (E83.52) E21.3 HYPERPARATHYROIDISM, UN SPECIFIED E83.52 HYPERCALCEMIA COMPARISON: 04/26/2014 PARATHYROID SCAN RADIONUCLIDE AND DOSE: 19.7 millicuries Tc-99m Sestamibi. The route of agent administration: Intravenous ADDITIONAL DRUGS AND DOSES: None. TECHNIQUE: Early and delayed images of the neck acquired following radionuclide administration. LIMITATIONS: None. FINDINGS: Thyroid: Normal size. Homogeneous activity. Normal washout. No focal lesions. Parathyroid: In the upper mediastinum, just inferior to the thyroid at the level of the thoracic inle t, there is a focus of persistent sestamibi activity which could indicate a parathyroid adenoma Other: No other significant findings. IMPRESSION: In the midline upper mediastinum at the thoracic inlet, a persistent small focus of incr eased uptake is seen on delayed sestamibi imaging. This could represent a small parathyroid adenoma. TECHNICAL DOCUMENTATION: JOB ID: [id number]- All Rights Reserved
== END ==
LOC: RAD 07:08
PROVIDERS: ATTEND Internal Medicine Nephrology
DX: D35.1 Benign neoplasm of parathyroid gland (principal); E21.3 Hyperparathyroidism, unspecified
CPT/HCPCS: 78070; A9500; Q9969

== ENCOUNTER 2017-05-25 18:17 | Inpatient (IN) | payer MEDICARE ==
--- NOTE | 2017-05-25 19:56 | ER Document Report ---
ED Medical Screen (RME) - General Chief Complaint: Shortness Of Breath Stated Complaint: SHORTNESS OF BREATH Time Seen by Provider: 05/25/17 19:55 Notes: Patient presents with 3 days of progressive shortness of breath that is worse with walking lying flat. He also has worse leg swelling than normal. Patient denies any chest pain cough congestion or recent fevers or illnesses. He has been taking his medications as prescribed and takes 20 mg of Lasix daily with no recent medication changes. I have greeted and performed a rapid initial assessment of this patient. A comprehensive ED assessment and evaluation of the patient, analysis of test results and completion of the medical decision making process will be conducted by additional ED providers. PHYSICAL EXAMINATION: GENERAL: Well-appearing, well-nourished and in no acute distress. HEAD: Atraumatic, normocephalic. EYES: Pupils equal round extraocular movements intact, conjunctiva are normal. ENT: Nares patent NECK: Normal range of motion LUNGS: No respiratory distress Musculoskeletal: Normal range of motion NEUROLOGICAL: Normal speech, normal gait. PSYCH: Normal mood, normal affect. SKIN: 2+ lower extremity pitting edema bilateraly TRAVEL OUTSIDE OF THE [place] IN LAST 30 DAYS: No - Related Data Allergies/Adverse Reactions: No Known Allergies Allergy (Unverified 05/25/17 18:19) Past Medical History - Social History Frequency of alcohol use: None Drug Abuse: None - Past Medical History Cardiac Medical History: Reports: Hx Congestive Heart Failure, Hx Coronary Artery Disease, Hx Heart Attack, Hx Hypercholesterolemia Endocrine Medical History: Reports: Hx Diabetes Mellitus Type 2 - Borderline Renal/ Medical History: Denies: Hx Peritoneal Dialysis Past Surgical History: Reports: Hx Cardiac Surgery - pacemaker/defibrillator, Hx Coronary Stent, Hx Internal Defibrillator, Hx Orthopedic Surgery - Right clavicle fracture repair, Hx Pacemaker, Other - Head injury requiring metal plate in his skull Physical Exam - Vital signs Vitals: Temp Pulse Resp BP Pulse Ox 98.5 F 89 22 H 166/94 H 92 05/25/17 18:25 05/25/17 18:25 05/25/17 18:25 05/25/17 18:25 05/25/17 18:25 Course - Vital Signs Vital signs: Temp Pulse Resp BP Pulse Ox 98.5 F 89 22 H 166/94 H 92 05/25/17 18:25 05/25/17 18:25 05/25/17 18:25 05/25/17 18:25 05/25/17 18:25
[2017-05-25] MEDS ORDERED: FUROSEMIDE INJ/PF 40 MG/4 ML SDV IV ONE (19:57)
[2017-05-25 20:30] LABS: ABSOLUTE EOSINOPHILS # (AUTO) 0.1 10^3/uL (0.0-0.6); ABSOLUTE LYMPHOCYTES (AUTO) 0.5 10^3/uL (0.5-4.7); ABSOLUTE MONOCYTES (AUTO) 0.4 10^3/uL (0.1-1.4); ABSOLUTE NEUT (AUTO) 6.2 10^3/uL (1.7-8.2); BASOPHILS % (AUTO) 0.4 % (0-2); EOSINOPHILS % (AUTO) 1.4 % (0-6); HEMATOCRIT 38.5 % (37.9-51.0); HEMOGLOBIN 12.2 g/dL (13.5-17.0); LYMPHOCYTES % (AUTO) 6.4 % (13-45); MEAN CORPUSCULAR HEMOGLOBIN 27.4 pg (27.0-33.4); MEAN CORPUSCULAR HGB CONC 31.8 g/dL (32.0-36.0); MEAN CORPUSCULAR VOLUME 86 fl (80-97); MONOCYTES % (AUTO) 5.3 % (3-13); PLATELET COUNT 212 10^3/uL (150-450); RED BLOOD COUNT 4.46 10^6/uL (4.35-5.55); RED CELL DISTRIBUTION WIDTH 16.9 % (11.5-14.0); SEGMENTED NEUTROPHILS % (AUTO) 86.5 % (42-78); TOTAL CELLS COUNTED % (AUTO) 100 %; WHITE BLOOD COUNT 7.2 10^3/uL (4.0-10.5)
[2017-05-25 20:50] LABS: ALANINE AMINOTRANSFERASE 115 U/L (21-72); ALBUMIN 4.3 g/dL (3.5-5.0); ALKALINE PHOSPHATASE 113 U/L (38-126); ANION GAP 11 (5-19); ASPARTATE AMINO TRANSFERASE 55 U/L (17-59); BILIRUBIN,DIRECT 0.6 mg/dL (0.0-0.4); BLOOD UREA NITROGEN 43 mg/dL (7-20); CALCIUM 11.3 mg/dL (8.4-10.2); CARBON DIOXIDE 25 mmol/L (22-30); CHLORIDE 110 mmol/L (98-107); GLUCOSE 102 mg/dL (75-110); SODIUM 146.1 mmol/L (137-145); TOTAL PROTEIN 7.3 g/dL (6.3-8.2)
[2017-05-25 20:52] LABS: INTERNATIONAL RATION (INR) 0.95; PROTHROMBIN TIME 13.4 SEC (11.4-15.4)
--- NOTE | 2017-05-25 21:11 | RADIOLOGY REPORT (SQ) ---
EXAM DESCRIPTION: CHEST PA/LAT COMPLETED DATE/TIME: 05/25/2017 8:52 pm REASON FOR STUDY: SOB, hx of CHF COMPARISON: 01/16/2009 NUMBER OF VIEWS: Two views. TECHNIQUE: Frontal and lateral radiographic views of the chest acquired. LIMITATIONS: None. FINDINGS: LUNGS AND PLEURA: Interstitial edema. Small pleural effusions. MEDIASTINUM AND HILAR STRUCTURES: Stable. HEART AND VASCULAR STRUCTURES: Cardiac enlargement. Vascular congestion. BONES: No acute findings. HARDWARE: Stable position of defibrillator. OTHER: No other significant finding. IMPRESSION: Congestive heart failure. TECHNICAL DOCUMENTATION: JOB ID: [id number] [employer]- All Rights Reserved Reading location - IP/workstation name: [email or web address]
[2017-05-25] MEDS ORDERED: NITROGLYCERIN/D5W 50 MG/250 ML RTUINJ IV PRN (21:37)
--- NOTE | 2017-05-25 22:23 | ER Document Report ---
ED General - General Chief Complaint: Shortness Of Breath Stated Complaint: SHORTNESS OF BREATH Time Seen by Provider: 05/25/17 19:55 Notes: Patient is a 77-year-old male with past medical history of CHF, COPD, hypertension, chronic kidney disease who presents with 3 days of progressively worsening shortness of breath. Patient does not normally require oxygen at baseline although at time of presentation he is noted to be saturating between 89 and 91%. His daughters insisted that he come to the emergency department today when he informed of the symptoms. He notes that he has had approximately a 4 pound weight gain over the last 1 week. He has been taking all his medications as directed. He describes his symptoms as being a constant shortness of breath significant worsened by exertion or lying flat. Nothing improves his symptoms. He states this feels similar to when he had CHF exacerbations in the past. He has not seen his primary care doctor regarding today's concerns although his family did notify his primary doctor that he was going to the emergency department. He denies any chest pain, fever, syncope, headache, weakness or numbness. TRAVEL OUTSIDE OF THE [place] IN LAST 30 DAYS: No - Related Data Allergies/Adverse Reactions: No Known Allergies Allergy (Unverified 05/25/17 18:19) Past Medical History - General Information source: Patient - Social History Smoking Status: Former Smoker Frequency of alcohol use: None Drug Abuse: None Lives with: Family Family History: Reviewed & Not Pertinent Patient has suicidal ideation: No Patient has homicidal ideation: No - Past Medical History Cardiac Medical History: Reports: Hx Congestive Heart Failure, Hx Coronary Artery Disease, Hx Heart Attack, Hx Hypercholesterolemia Endocrine Medical History: Reports: Hx Diabetes Mellitus Type 2 - Borderline Renal/ Medical History: Denies: Hx Peritoneal Dialysis Past Surgical History: Reports: Hx Cardiac Surgery - pacemaker/defibrillator, Hx Coronary Stent, Hx Internal Defibrillator, Hx Orthopedic Surgery - Right clavicle fracture repair, Hx Pacemaker, Other - Head injury requiring metal plate in his skull Review of Systems - Review of Systems Notes: Constitutional: Negative for fever. HENT: Negative for sore throat. Eyes: Negative for visual changes. Cardiovascular: Negative for chest pain. Respiratory: Positive for shortness of breath. Gastrointestinal: Negative for abdominal pain, vomiting or diarrhea. Genitourinary: Negative for dysuria. Musculoskeletal: Negative for back pain. Skin: Negative for rash. Neurological: Negative for headaches, weakness or numbness. 10 point ROS negative except as marked above and in HPI. Physical Exam - Vital signs Vitals: Temp Pulse Resp BP Pulse Ox 98.5 F 89 22 H 166/94 H 92 05/25/17 18:25 18 18:25 18 18:25 05/25/17 18:25 05/25/17 18:25 Interpretation: Hypoxic, Tachypneic Notes: PHYSICAL EXAMINATION: GENERAL: Well-appearing, well-nourished and in no acute distress. HEAD: Atraumatic, normocephalic. EYES: Pupils equal round and reactive to light, extraocular movements intact, sclera anicteric, conjunctiva are normal. ENT: nares patent, oropharynx clear without exudates. Moderately mucous membranes. NECK: Normal range of motion, supple without lymphadenopathy LUNGS: Rhonchi in all lung marx, diminished breath sounds at the bases bilaterally. No respiratory distress. HEART: Regular rate and rhythm, 3 out of 6 systolic ejection murmur ABDOMEN: Soft, nontender, normoactive bowel sounds. No guarding, no rebound. No masses appreciated. EXTREMITIES: Normal range of motion, 2+ pitting edema bilateral lower extremities is equal and symmetric NEUROLOGICAL: No focal neurological deficits. Moves all extremities spontaneously and on command. PSYCH: Normal mood, normal affect. SKIN: Warm, Dry, normal turgor, no rashes or lesions noted. Course - Re-evaluation Re-evalutation: 05/25/17 22:21 Patient presents with moderately increased work of breathing saturating between 89 and 91% on room air, 95% on 2 L by nasal cannula. He is otherwise in no acute distress. He does have some moderate hypertension at time of presentation. His chest x-ray does show bilateral pulmonary edema and cardiomegaly, proBNP is markedly elevated at 8000 increased from his baseline of 400 approximate 5 months ago. His troponin remains in the indeterminate range although review of his prior troponin levels notes that it is chronically around this region of indeterminate range. He denies any chest pain. No skin changes on his EKG. He has been given 40 mg of IV furosemide for diuresis and IV nitro glycerin to reduce his blood pressure to maintain his ability to continue appropriate diuresis and improve his work of breathing. I discussed this case with Dr. Duran who is agreeable to accept this patient to his service. - Vital Signs Vital signs: Temp Pulse Resp BP Pulse Ox 98.5 F 89 23 H 112/69 97 05/25/17 18:25 05/25/17 18:25 05/26/17 03:42 05/26/17 03:42 05/26/17 03:42 - Laboratory Result Diagrams: 05/25/17 20:15 05/25/17 20:15 Laboratory results interpreted by me: 05/25/17 05/25/17 05/25/17 20:15 20:15 20:15 Hgb 12.2 L MCHC 31.8 L RDW 16.9 H Seg Neutrophils % 86.5 H Lymphocytes % 6.4 L Sodium 146.1 H Chloride 110 H BUN 43 H Creatinine 3.09 H Est GFR ( Amer) 24 L Est GFR (Non-Af Amer) 20 L Calcium 11.3 H Direct Bilirubin 0.6 H ALT 115 H NT-Pro-B Natriuret Pep 8730 H - Diagnostic Test Radiology reviewed: Image reviewed, Reports reviewed Radiology results interpreted by me: 05/25/17 22:22 Chest x-ray: Cardiomegaly and pulmonary edema bilaterally - EKG Interpretation by Me Additional EKG results interpreted by me: 05/25/17 22:23 Sinus rhythm. Rate 96. No ST elevations or depressions. QTC is 450. Discharge - Discharge Clinical Impression: CKD (chronic kidney disease) stage 5, GFR less than 15 ml/min, Pulmonary edema , Elevated troponin I level Hypertension Qualifiers: Hypertension type: essential hypertension Qualified Code(s): I10 - Essential ( primary) hypertension CHF (congestive heart failure) Qualifiers: Heart failure type: combined systolic and diastolic Heart failure chronicity: acute on chronic Qualified Code(s): I50.43 - Acute on chronic combined systolic (congestive) and diastolic (congestive) heart failure Dyspnea Qualifiers: Dyspnea type: shortness of breath Qualified Code(s): R06.02 - Shortness of breath Condition: Fair Disposition: ADMITTED INPATIENT Admitting Provider: Roger Unit Admitted: Telemetry
--- NOTE | 2017-05-26 06:02 | EKG REPORT ---
SEVERITY:- ABNORMAL ECG - SINUS RHYTHM LEFT ATRIAL ABNORMALITY LOW VOLTAGE IN FRONTAL LEADS NONSPECIFIC T ABNORMALITIES ,SMILEY LATERAL LEADS : Confirmed by: Fernando Wisdom MD 26-May-2017 06:01:06
[2017-05-26] MEDS ORDERED: FUROSEMIDE INJ/PF 40 MG/4 ML SDV IV ONE (09:00)
[2017-05-26 10:38] LABS: ABSOLUTE EOSINOPHILS # (AUTO) 0.1 10^3/uL (0.0-0.6); ABSOLUTE LYMPHOCYTES (AUTO) 0.6 10^3/uL (0.5-4.7); ABSOLUTE MONOCYTES (AUTO) 0.5 10^3/uL (0.1-1.4); ABSOLUTE NEUT (AUTO) 3.8 10^3/uL (1.7-8.2); BASOPHILS % (AUTO) 0.6 % (0-2); EOSINOPHILS % (AUTO) 2.5 % (0-6); HEMATOCRIT 35.1 % (37.9-51.0); HEMOGLOBIN 11.3 g/dL (13.5-17.0); LYMPHOCYTES % (AUTO) 12.3 % (13-45); MEAN CORPUSCULAR HEMOGLOBIN 27.2 pg (27.0-33.4); MEAN CORPUSCULAR VOLUME 85 fl (80-97); MONOCYTES % (AUTO) 9.7 % (3-13); PLATELET COUNT 184 10^3/uL (150-450); RED BLOOD COUNT 4.13 10^6/uL (4.35-5.55); RED CELL DISTRIBUTION WIDTH 16.7 % (11.5-14.0); SEGMENTED NEUTROPHILS % (AUTO) 74.9 % (42-78); TOTAL CELLS COUNTED % (AUTO) 100 %; WHITE BLOOD COUNT 5.1 10^3/uL (4.0-10.5)
[2017-05-26 10:49] LABS: INTERNATIONAL RATION (INR) 1.02; PROTHROMBIN TIME 14.1 SEC (11.4-15.4)
[2017-05-26 10:50] LABS: PARTIAL THROMBOPLASTIN TIME 33.7 SEC (23.5-35.8)
[2017-05-26 10:52] LABS: ARTERIAL BLOOD BASE EXCESS 1.2 mmol/L; ARTERIAL BLOOD H2CO3 1.56 mmol/L (1.05-1.35); ARTERIAL BLOOD HCO3 27.6 mmol/L (20-26); ARTERIAL BLOOD O2 SATURATION 95.2 % (94-98); ARTERIAL BLOOD PCO2 51.9 mmHg (35-45); ARTERIAL BLOOD PH 7.34 (7.35-7.45); ARTERIAL BLOOD TOTAL CO2 29.2 mmol/L (23-27)
[2017-05-26 10:53] LABS: ARTERIAL BLOOD FIO2 28%
[2017-05-26 10:55] LABS: ALANINE AMINOTRANSFERASE 85 U/L (21-72); ALBUMIN 3.5 g/dL (3.5-5.0); ALKALINE PHOSPHATASE 97 U/L (38-126); ANION GAP 9 (5-19); ASPARTATE AMINO TRANSFERASE 39 U/L (17-59); BILIRUBIN,DIRECT 0.2 mg/dL (0.0-0.4); BILIRUBIN,TOTAL 0.9 mg/dL (0.2-1.3); BLOOD UREA NITROGEN 45 mg/dL (7-20); CALCIUM 11.1 mg/dL (8.4-10.2); CARBON DIOXIDE 29 mmol/L (22-30); CHLORIDE 107 mmol/L (98-107); CREATINE KINASE 89 U/L (55-170); GLUCOSE 77 mg/dL (75-110); SODIUM 145.1 mmol/L (137-145); TOTAL PROTEIN 5.8 g/dL (6.3-8.2)
[2017-05-26] MEDS ORDERED: DEXTROSE 50%-WATER SYRINGE 25 GM/50 ML DOSE IV PRN (11:00)
[2017-05-26] MEDS ORDERED: DEXTROSE 40% GEL 15 GM TUBE PO PRN (11:00)
[2017-05-26] MEDS ORDERED: INSULIN LISPRO 100 UNIT/ML 3 ML VIAL SUBCUT PRN (11:00)
[2017-05-26] MEDS ORDERED: DEXTROSE 40% GEL 15 GM TUBE X 2 PO PRN (11:00)
[2017-05-26] MEDS ORDERED: GLUCAGON,HUMAN RECOMB 1 MG INJ IM PRN (11:00)
[2017-05-26] MEDS ORDERED: DEXTROSE 50%-WATER SYRINGE 12.5 GM/25 ML DOSE IV PRN (11:00)
[2017-05-26 11:07] LABS: CREATINE KINASE MB 2.09 ng/mL (<4.55)
[2017-05-26 11:13] LABS: TROPONIN I 0.125 ng/mL
--- NOTE | 2017-05-26 11:19 | RADIOLOGY REPORT (SQ) ---
EXAM DESCRIPTION: CHEST SINGLE VIEW COMPLETED DATE/TIME: 05/26/2017 10:14 am REASON FOR STUDY: CHF COMPARISON: Chest films 05/25/2017, 01/16/2009 EXAM PARAMETERS: NUMBER OF VIEWS: One view. TECHNIQUE: Single frontal radiographic view of the chest acquired. RADIATION DOSE: NA LIMITATIONS: None. FINDINGS: LUNGS AND PLEURA: Air bronchograms in the right lower lobe worrisome for pneumonia. Right-sided chronic pleural thickening is present, stable. No right pneumothorax. Stable left pleural thickening. No pneumothorax. No left acute infiltrates. MEDIASTINUM AND HILAR STRUCTURES: No masses. Contour normal. HEART AND VASCULAR STRUCTURES: Stable moderate cardiomegaly BONES: Old healed right lateral rib fractures HARDWARE: Unchanged left-sided dual lead pacemaker OTHER: No other significant finding. IMPRESSION: Right lower lobe consolidation, worrisome for pneumonia. TECHNICAL DOCUMENTATION: JOB ID: [id number] [employer]- All Rights Reserved Reading location - IP/workstation name: [email or web address]
--- NOTE | 2017-05-26 18:44 | PDOC H&P ---
History of Present Illness Admission Date/PCP: 05/25/17 22:47 HIMA NIKITA Patient complains of: Worsening shortness of breath History of Present Illness: SORIN PINEDA is 77-years old male patient known to my practice who presented to the ED with worsening shortness of breath over preceding 3-4 days. Patient noted bilateral leg swelling and described shortness of breath with exertion and orthopnea. He denied any associated palpitation, chest pin, or PND. He reported compliance with his prescribed medication and dietary restrictions regard fluid and salt intake. There is no recent alcohol intake or abuse. No excessive salt or water consumption. His functional level have been limited over last couple of days due to associated difficulty with breathing. he denied any fever, chills, coughing or sputum production. Patient admitted to episode of coughing about 1 month ago. he admitted to gaining about 4 lbs in recent time. He denies any syncope, headache, weakness or numbness. His initial evaluation in the ED was remarkable for elevated blood pressure and persistent hypoxemia necessitating use of BiPAP support and IV Nitroglycerine therapy. His laboratory findings include elevated NT-ProBNP, BUN, and creatinine as well as chest X ray that suggest pulmonary edema and vascular congestion. His morbidities include Congestive Heart Failure, Chronic Atrial Fibrillation s/p pacemaker/defibrillator implant, Coronary Artery Disease, Old [place], Hyperlipidemia , Diabetes Mellitus Type 2, and CKD stage 4. He was advised hospitalization for further evaluation and management. Past Medical History Cardiac Medical History: Reports: Congestive Heart Failure, Coronary Artery Disease, Myocardial Infarction, Hyperlipidema Endocrine Medical History: Reports: Diabetes Mellitus Type 2 - Borderline Past Surgical History Past Surgical History: Reports: Coronary Stent, Internal Defibrillator, Orthopedic Surgery - Right clavicle fracture repair, Pacemaker, Other - Head injury requiring metal plate in his skull Social History Lives with: Family Smoking Status: Former Smoker Frequency of Alcohol Use: None - Quit 50 years ago Hx Recreational Drug Use: No Drugs: None Hx Prescription Drug Abuse: No - Advance Directive Resuscitation Status: Full Code Family History Family History: Reviewed & Not Pertinent Parental Family History Reviewed: Yes Children Family History Reviewed: Yes Sibling(s) Family History Reviewed.: Yes Medication/Allergy Home Medications: Aspirin [Ecotrin 81 mg EC Tablet] 81 mg PO DAILY 10/11/16 Atorvastatin Calcium 40 mg PO QHS 10/11/16 Hydralazine HCl 37.5 mg PO Q8 10/11/16 Tramadol HCl 50 mg PO Q12 10/11/16 Carvedilol [Coreg 6.25 mg Tablet] 6.25 mg PO Q12 #60 tablet 10/16/16 Patiromer Calcium Sorbitex [Veltassa 8.4 gm Susp Packet] 8.4 gm PO DAILY #30 packet 10/16/16 Furosemide [Lasix 20 mg Tablet] 20 mg PO DAILY 05/26/17 Glipizide [Glucotrol 5 mg Tablet] 2.5 mg PO DAILY 05/26/17 Allergies/Adverse Reactions: No Known Allergies Allergy (Unverified 05/25/17 18:19) Review of Systems Constitutional: ABSENT: chills, fever(s), headache(s), weight gain, weight loss Eyes: ABSENT: visual disturbances Ears: PRESENT: hearing changes Nose, Mouth, and Throat: ABSENT: as per HPI, headache(s), mouth pain, sore throat, vertigo, other Cardiovascular: PRESENT: dyspnea on exertion, edema, orthropnea. ABSENT: as per HPI, chest pain, palpitations, other Respiratory: PRESENT: dyspnea. ABSENT: as per HPI, cough, hemoptysis, sputum, other Gastrointestinal: ABSENT: abdominal pain, constipation, diarrhea, hematemesis, hematochezia, nausea, vomiting Genitourinary: ABSENT: dysuria, hematuria Musculoskeletal: ABSENT: joint swelling Integumentary: ABSENT: rash, wounds Neurological: ABSENT: abnormal gait, abnormal speech, confusion, dizziness, focal weakness, syncope Psychiatric: ABSENT: anxiety, depression, homidical ideation, suicidal ideation Endocrine: ABSENT: cold intolerance, heat intolerance, polydipsia, polyuria Hematologic/Lymphatic: ABSENT: easy bleeding, easy bruising, lymphadenopathy Allergic/Immunologic: ABSENT: seasonal rhinorrhea Physical Exam Vital Signs: Temp Pulse Resp BP Pulse Ox 97.7 F 75 19 125/84 98 05/26/17 15:09 05/26/17 15:53 05/26/17 14:21 05/26/17 15:09 05/26/17 15:09 Intake & Output 05/25/17 05/26/17 05/27/17 06:59 06:59 06:59 Intake Total 610 Output Total 1850 Balance -1240 General appearance: PRESENT: mild distress - remain on supplemental oxygen via nasal cannula at 2L/min, obese Head exam: PRESENT: atraumatic, normocephalic Eye exam: PRESENT: conjunctiva pink, EOMI, PERRLA. ABSENT: scleral icterus Ear exam: PRESENT: normal external ear exam Mouth exam: PRESENT: moist, tongue midline Neck exam: PRESENT: full ROM. ABSENT: carotid bruit, JVD, lymphadenopathy, thyromegaly Respiratory exam: PRESENT: clear to auscultation amelia, crackles - scattered with inspiratory phase, decreased breath sounds - at lung bases Cardiovascular exam: PRESENT: RRR, other - left anterior chest wall subcutaneous pacemaker/defibrillator device. ABSENT: diastolic murmur, rubs, systolic murmur Pulses: PRESENT: normal dorsalis pedis pul, +2 pedal pulses bilateral Vascular exam: PRESENT: normal capillary refill. ABSENT: pallor GI/Abdominal exam: PRESENT: normal bowel sounds, soft. ABSENT: distended, guarding, mass, organolmegaly, rebound, tenderness Rectal exam: PRESENT: deferred Extremities exam: PRESENT: pedal edema - [id number] Musculoskeletal exam: PRESENT: deformity - related to multiple joints involvement with arthritis Neurological exam: PRESENT: alert, awake, oriented to person, oriented to place , oriented to time, oriented to situation, CN II-XII grossly intact. ABSENT: motor sensory deficit Psychiatric exam: PRESENT: appropriate affect, normal mood. ABSENT: homicidal ideation, suicidal ideation Skin exam: PRESENT: dry, intact, warm. ABSENT: cyanosis, rash Results Laboratory Results: 05/26/17 10:20 05/26/17 10:20 05/26/17 05/26/17 05/26/17 10:20 10:20 10:40 WBC 5.1 RBC 4.13 L Hgb 11.3 L Hct 35.1 L MCV 85 MCH 27.2 MCHC 32.0 RDW 16.7 H Plt Count 184 Seg Neutrophils % 74.9 Lymphocytes % 12.3 L Monocytes % 9.7 Eosinophils % 2.5 Basophils % 0.6 Absolute Neutrophils 3.8 Absolute Lymphocytes 0.6 Absolute Monocytes 0.5 Absolute Eosinophils 0.1 Absolute Basophils 0.0 Carbonic Acid 1.56 H HCO3/H2CO3 Ratio 17:1 ABG pH 7.34 L ABG pCO2 51.9 H ABG pO2 81.0 ABG HCO3 27.6 H ABG O2 Saturation 95.2 ABG Base Excess 1.2 FiO2 28% Sodium 145.1 H Potassium 5.0 Chloride 107 Carbon Dioxide 29 Anion Gap 9 BUN 45 H Creatinine 2.95 H Est GFR ( Amer) 25 L Est GFR (Non-Af Amer) 21 L Glucose 77 Calcium 11.1 H Total Bilirubin 0.9 AST 39 ALT 85 H Alkaline Phosphatase 97 Total Protein 5.8 L Albumin 3.5 05/26/17 05/26/17 10:20 10:20 Creatine Kinase 89 CK-MB (CK-2) 2.09 Troponin I 0.125 NT-Pro-B Natriuret Pep 39828 H Impressions: Chest X-Ray 05/26/17 10:00 IMPRESSION: Right lower lobe consolidation, worrisome for pneumonia. Assessment & Plan - Diagnosis (1) Acute on chronic combined systolic (congestive) and diastolic (congestive) heart failure Is this a current diagnosis for this admission?: Yes Plan: See admitting attending physician orders. (2) CKD (chronic kidney disease) stage 4, GFR 15-29 ml/min Is this a current diagnosis for this admission?: Yes Plan: See admitting attending physician orders. (3) Elevated troponin I level Is this a current diagnosis for this admission?: Yes Plan: See admitting attending physician orders. Probably due to his advance kidney disease. (4) Hypertension Qualifiers: Hypertension type: essential hypertension Qualified Code(s): I10 - Essential (primary) hypertension Is this a current diagnosis for this admission?: Yes Plan: See admitting attending physician orders. (5) CAD (coronary atherosclerotic disease) Qualifiers: Coronary Disease-Associated Artery/Lesion type: unspecified vessel or lesion type Associated angina: without angina Is this a current diagnosis for this admission?: Yes Plan: See admitting attending physician orders. (6) Chronic a-fib Is this a current diagnosis for this admission?: Yes Plan: See admitting attending physician orders. (7) Diabetes mellitus type 2 with complications Qualifiers: Diabetes mellitus mcfp insulin use: without mcfp use Qualified Code(s): E11.8 - Type 2 diabetes mellitus with unspecified complications Is this a current diagnosis for this admission?: Yes Plan: See admitting attending physician orders. (8) HLD (hyperlipidemia) Qualifiers: Hyperlipidemia type: pure hypercholesterolemia Qualified Code(s): E78.00 - Pure hypercholesterolemia, unspecified Is this a current diagnosis for this admission?: Yes Plan: See admitting attending physician orders. (9) Old [place] (myocardial infarction) Is this a current diagnosis for this admission?: Yes Plan: See admitting attending physician orders. (10) Osteoarthritis involving multiple joints on both sides of body Is this a current diagnosis for this admission?: Yes Plan: See admitting attending physician orders. - Time Time Spent: 50 to 70 Minutes Medications reviewed and adjusted accordingly: Yes Anticipated discharge: Home with Homehealth Within: Other - Inpatient Certification Based on my medical assessment, after consideration of the patient's comorbidities, presenting symptoms, or acuity I expect that the services needed warrant INPATIENT care.: Yes I certify that my determination is in accordance with my understanding of Medicare's requirements for reasonable and necessary INPATIENT services [42 CFR 412.3e].: Yes Medical Necessity: Need Close Monitoring Due to Risk of Patient Decompensation, Need For Continuous Telemetry Monitoring, Risk of Complication if Not Cared For in Hospital Post Hospital Care: D/C Fermenting Cellar Dropper Documentation - Plan Summary Plan Summary: See admitting attending physician orders.
[2017-05-26 18:47] LABS: CREATINE KINASE MB 2.91 ng/mL (<4.55)
[2017-05-26] MEDS ORDERED: TRAMADOL HCL 50 MG TABLET PO PRN (18:47)
[2017-05-26 18:53] LABS: TROPONIN I 0.146 ng/mL
[2017-05-26] MEDS: HYDRALAZINE HCL 25 MG TABLET PO SCH (21:53)
[2017-05-26] MEDS: CARVEDILOL 6.25 MG TABLET PO SCH (21:54)
[2017-05-26] MEDS: ATORVASTATIN CALCIUM 40 MG TABLET PO SCH (21:55)
[2017-05-26] MEDS ORDERED: TRAMADOL HCL 50 MG TABLET PO SCH (22:00)
--- NOTE | 2017-05-26 23:50 | EKG REPORT ---
SEVERITY:- ABNORMAL ECG - ATRIAL FIBRILLATION, V-RATE 74-119 T WAVE ABNORMALITIES, INFERIOR LEADS , ANTERIOR LEADS, CONSIDER ISCHEMIA LATERAL LEADS ARE ALSO INVOLVED PROLONGED QT INTERVAL : Confirmed by: Enrique Sierra 26-May-2017 23:49:50
[2017-05-27 02:42] LABS: ABSOLUTE EOSINOPHILS # (AUTO) 0.1 10^3/uL (0.0-0.6); ABSOLUTE LYMPHOCYTES (AUTO) 0.7 10^3/uL (0.5-4.7); ABSOLUTE MONOCYTES (AUTO) 0.5 10^3/uL (0.1-1.4); ABSOLUTE NEUT (AUTO) 3.9 10^3/uL (1.7-8.2); BASOPHILS % (AUTO) 0.5 % (0-2); EOSINOPHILS % (AUTO) 2.7 % (0-6); HEMATOCRIT 34.8 % (37.9-51.0); HEMOGLOBIN 11.1 g/dL (13.5-17.0); LYMPHOCYTES % (AUTO) 13.3 % (13-45); MEAN CORPUSCULAR HEMOGLOBIN 27.3 pg (27.0-33.4); MEAN CORPUSCULAR HGB CONC 31.8 g/dL (32.0-36.0); MEAN CORPUSCULAR VOLUME 86 fl (80-97); PLATELET COUNT 173 10^3/uL (150-450); RED BLOOD COUNT 4.05 10^6/uL (4.35-5.55); RED CELL DISTRIBUTION WIDTH 17.4 % (11.5-14.0); SEGMENTED NEUTROPHILS % (AUTO) 73.5 % (42-78); TOTAL CELLS COUNTED % (AUTO) 100 %; WHITE BLOOD COUNT 5.3 10^3/uL (4.0-10.5)
[2017-05-27 03:19] LABS: ALANINE AMINOTRANSFERASE 76 U/L (21-72); ALBUMIN 3.2 g/dL (3.5-5.0); ALKALINE PHOSPHATASE 93 U/L (38-126); ANION GAP 9 (5-19); ASPARTATE AMINO TRANSFERASE 34 U/L (17-59); BILIRUBIN,DIRECT 0.4 mg/dL (0.0-0.4); BILIRUBIN,TOTAL 0.4 mg/dL (0.2-1.3); BLOOD UREA NITROGEN 50 mg/dL (7-20); CALCIUM 10.4 mg/dL (8.4-10.2); CARBON DIOXIDE 26 mmol/L (22-30); CHLORIDE 109 mmol/L (98-107); CREATINE KINASE 163 U/L (55-170); GLUCOSE 93 mg/dL (75-110); POTASSIUM 4.6 mmol/L (3.6-5.0); SODIUM 144.1 mmol/L (137-145); TOTAL PROTEIN 5.7 g/dL (6.3-8.2)
[2017-05-27 03:30] LABS: CREATINE KINASE MB 2.32 ng/mL (<4.55)
[2017-05-27 03:37] LABS: TROPONIN I 0.138 ng/mL
[2017-05-27] MEDS: HYDRALAZINE HCL 25 MG TABLET PO SCH ×3 (05:44→22:01)
[2017-05-27] MEDS: LANSOPRAZOLE 15 MG TAB.RAP.DR PO SCH (05:45)
[2017-05-27 06:53] LABS: ARTERIAL BLOOD BASE EXCESS -1.9 mmol/L; ARTERIAL BLOOD H2CO3 1.38 mmol/L (1.05-1.35); ARTERIAL BLOOD O2 SATURATION 96.7 % (94-98); ARTERIAL BLOOD PH 7.34 (7.35-7.45); ARTERIAL BLOOD PO2 94.3 mmHg (80-100); ARTERIAL BLOOD TOTAL CO2 25.5 mmol/L (23-27)
[2017-05-27 06:54] LABS: ARTERIAL BLOOD FIO2 26%
[2017-05-27] MEDS: PATIROMER 8.4 GM SUSP PACKET PO SCH (08:01)
[2017-05-27] MEDS ORDERED: FUROSEMIDE INJ/PF 40 MG/4 ML SDV IV SCH (10:00)
[2017-05-27] MEDS: ENOXAPARIN SODIUM INJ 30 MG/0.3 ML DISP.SYRIN SUBCUT SCH (10:47)
[2017-05-27] MEDS: GLIPIZIDE 5 MG TABLET PO SCH (10:48)
[2017-05-27] MEDS: CARVEDILOL 6.25 MG TABLET PO SCH ×2 (10:49→22:01)
[2017-05-27] MEDS: ASPIRIN 81 MG TABLET, ENT COATED PO SCH (10:49)
--- NOTE | 2017-05-27 12:58 | RADIOLOGY REPORT (SQ) ---
EXAM DESCRIPTION: CHEST PA/LAT COMPLETED DATE/TIME: 05/27/2017 12:41 pm REASON FOR STUDY: Shortness of breath r/o Pneumonia COMPARISON: 05/25/2017 EXAM PARAMETERS: NUMBER OF VIEWS: two views TECHNIQUE: Digital Frontal and Lateral radiographic views of the chest acquired. RADIATION DOSE: NA LIMITATIONS: none FINDINGS: LUNGS AND PLEURA: The previously described small pleural effusions and associated intersti tial edema appear essentially unchanged. There is some minimal confluence in the right lung base whi ch could represent a developing infiltrate or pulmonary edema. MEDIASTINUM AND HILAR STRUCTURES: No masses or contour abnormalities. HEART AND VASCULAR STRUCTURES: Cardiac silhouette remains enlarged. Again there is pulmonary vascula r congestion BONES: No acute findings. HARDWARE: AICD device is unchanged in position OTHER: No other significant finding. IMPRESSION: Congestive failure pattern as noted above. TECHNICAL DOCUMENTATION: JOB ID: [id number] [employer]- All Rights Reserved Reading location - IP/workstation name: [email or web address]
--- NOTE | 2017-05-27 18:32 | PDOC PROGRESS REPORT ---
Subjective Progress Note for:: 05/27/17 Subjective:: No chest pain. Breathing is improving. leg swelling improved. Remain on IV Lasix. Completed TTE evaluation earlier today. No fever or chills. No abdominal pain, nausea or vomiting. Ambulate in his room without significant shortness. Reason For Visit: ACUTE ON CHRONIC CHF, CKD STAGE 4, DM TYPE 2 Physical Exam Vital Signs: Temp Pulse Resp BP Pulse Ox 97.9 F 70 18 111/59 L 95 05/27/17 07:45 05/27/17 07:45 05/27/17 07:45 05/27/17 07:45 05/27/17 07:45 Intake & Output 05/26/17 05/27/17 05/28/17 06:59 06:59 06:59 Intake Total 715 Output Total 2900 Balance -2185 Weight 88.3 kg General appearance: PRESENT: no acute distress, obese, well-developed, well- nourished Head exam: PRESENT: atraumatic, normocephalic Eye exam: PRESENT: conjunctiva pink, EOMI, PERRLA. ABSENT: scleral icterus Mouth exam: PRESENT: moist Respiratory exam: PRESENT: clear to auscultation amelia, decreased breath sounds - at lung bases Cardiovascular exam: PRESENT: RRR. ABSENT: diastolic murmur, rubs, systolic murmur GI/Abdominal exam: PRESENT: normal bowel sounds, soft. ABSENT: distended, guarding, mass, organolmegaly, rebound, tenderness Extremities exam: PRESENT: pedal edema - resolved significantly Neurological exam: PRESENT: alert, awake, oriented to person, oriented to place , oriented to time, oriented to situation, CN II-XII grossly intact. ABSENT: motor sensory deficit Psychiatric exam: PRESENT: appropriate affect, normal mood. ABSENT: homicidal ideation, suicidal ideation Skin exam: PRESENT: dry, intact, warm. ABSENT: cyanosis, rash Results Laboratory Results: 05/27/17 02:26 05/27/17 02:26 05/26/17 05/26/17 05/26/17 10:20 10:20 10:40 WBC 5.1 RBC 4.13 L Hgb 11.3 L Hct 35.1 L MCV 85 MCH 27.2 MCHC 32.0 RDW 16.7 H Plt Count 184 Seg Neutrophils % 74.9 Lymphocytes % 12.3 L Monocytes % 9.7 Eosinophils % 2.5 Basophils % 0.6 Absolute Neutrophils 3.8 Absolute Lymphocytes 0.6 Absolute Monocytes 0.5 Absolute Eosinophils 0.1 Absolute Basophils 0.0 Carbonic Acid 1.56 H HCO3/H2CO3 Ratio 17:1 ABG pH 7.34 L ABG pCO2 51.9 H ABG pO2 81.0 ABG HCO3 27.6 H ABG O2 Saturation 95.2 ABG Base Excess 1.2 FiO2 28% Sodium 145.1 H Potassium 5.0 Chloride 107 Carbon Dioxide 29 Anion Gap 9 BUN 45 H Creatinine 2.95 H Est GFR ( Amer) 25 L Est GFR (Non-Af Amer) 21 L Glucose 77 Calcium 11.1 H Magnesium Total Bilirubin 0.9 AST 39 ALT 85 H Alkaline Phosphatase 97 Total Protein 5.8 L Albumin 3.5 05/26/17 05/27/17 05/27/17 18:05 02:26 02:26 WBC 5.3 RBC 4.05 L Hgb 11.1 L Hct 34.8 L MCV 86 MCH 27.3 MCHC 31.8 L RDW 17.4 H Plt Count 173 Seg Neutrophils % 73.5 Lymphocytes % 13.3 Monocytes % 10.0 Eosinophils % 2.7 Basophils % 0.5 Absolute Neutrophils 3.9 Absolute Lymphocytes 0.7 Absolute Monocytes 0.5 Absolute Eosinophils 0.1 Absolute Basophils 0.0 Carbonic Acid HCO3/H2CO3 Ratio ABG pH ABG pCO2 ABG pO2 ABG HCO3 ABG O2 Saturation ABG Base Excess FiO2 Sodium 144.1 Potassium 4.6 Chloride 109 H Carbon Dioxide 26 Anion Gap 9 BUN 50 H Creatinine 3.28 H Est GFR ( Amer) 22 L Est GFR (Non-Af Amer) 18 L Glucose 93 Calcium 10.4 H Magnesium 2.3 2.2 Total Bilirubin 0.4 AST 34 ALT 76 H Alkaline Phosphatase 93 Total Protein 5.7 L Albumin 3.2 L 05/27/17 06:33 WBC RBC Hgb Hct MCV MCH MCHC RDW Plt Count Seg Neutrophils % Lymphocytes % Monocytes % Eosinophils % Basophils % Absolute Neutrophils Absolute Lymphocytes Absolute Monocytes Absolute Eosinophils Absolute Basophils Carbonic Acid 1.38 H HCO3/H2CO3 Ratio 17:1 ABG pH 7.34 L ABG pCO2 46.0 H ABG pO2 94.3 ABG HCO3 24.0 ABG O2 Saturation 96.7 ABG Base Excess -1.9 FiO2 26% Sodium Potassium Chloride Carbon Dioxide Anion Gap BUN Creatinine Est GFR ( Amer) Est GFR (Non-Af Amer) Glucose Calcium Magnesium Total Bilirubin AST ALT Alkaline Phosphatase Total Protein Albumin 05/26/17 05/26/17 05/26/17 10:20 10:20 18:05 Creatine Kinase 89 148 CK-MB (CK-2) 2.09 Troponin I 0.125 NT-Pro-B Natriuret Pep 07990 H 05/26/17 05/27/17 05/27/17 18:05 02:26 02:26 Creatine Kinase 163 CK-MB (CK-2) 2.91 2.32 Troponin I 0.146 0.138 NT-Pro-B Natriuret Pep Impressions: Chest X-Ray 05/26/17 10:00 IMPRESSION: Right lower lobe consolidation, worrisome for pneumonia. Assessment & Plan - Diagnosis (1) Acute on chronic combined systolic (congestive) and diastolic (congestive) heart failure Is this a current diagnosis for this admission?: Yes (2) CKD (chronic kidney disease) stage 4, GFR 15-29 ml/min Is this a current diagnosis for this admission?: Yes (3) Elevated troponin I level Is this a current diagnosis for this admission?: Yes (4) Hypertension Qualifiers: Hypertension type: essential hypertension Qualified Code(s): I10 - Essential (primary) hypertension Is this a current diagnosis for this admission?: Yes (5) CAD (coronary atherosclerotic disease) Qualifiers: Coronary Disease-Associated Artery/Lesion type: unspecified vessel or lesion type Associated angina: without angina Is this a current diagnosis for this admission?: Yes (6) Chronic a-fib Is this a current diagnosis for this admission?: Yes (7) Diabetes mellitus type 2 with complications Qualifiers: Diabetes mellitus 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 or intermediate school principal insulin use: without middle or intermediate school principal use Qualified Code(s): E11.8 - Type 2 diabetes mellitus with unspecified complications Is this a current diagnosis for this admission?: Yes (8) HLD (hyperlipidemia) Qualifiers: Hyperlipidemia type: pure hypercholesterolemia Qualified Code(s): E78.00 - Pure hypercholesterolemia, unspecified Is this a current diagnosis for this admission?: Yes (9) 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) Is this a current diagnosis for this admission?: Yes (10) Osteoarthritis involving multiple joints on both sides of body Is this a current diagnosis for this admission?: Yes - Time Time Spent with patient: 25-34 minutes Medications reviewed and adjusted accordingly: Yes Anticipated discharge: Home with Homehealth Within: Other - Inpatient Certification Based on my medical assessment, after consideration of the patient's comorbidities, presenting symptoms, or acuity I expect that the services needed warrant INPATIENT care.: Yes I certify that my determination is in accordance with my understanding of Medicare's requirements for reasonable and necessary INPATIENT services [42 CFR 412.3e].: Yes Medical Necessity: Need Close Monitoring Due to Risk of Patient Decompensation, Need For Continuous Telemetry Monitoring, Risk of Complication if Not Cared For in Hospital Post Hospital Care: D/C Desk Top Publisher Documentation - Plan Summary Plan Summary: D/C IV Lasix. Maintain on preadmission Lasix at 20mg p.o daily. Maintain on all other current mediation management. Follow up on official echocardiogram report. Obtain echo report from [facility] former office for comparison.
--- NOTE | 2017-05-27 18:54 | XCELERA REPORT ---
[address] [address] Transthoracic Echocardiogram Report Name: SORIN PINEDA Age: 77 yrs Gender: Male : 1940 Patient Status: Inpatient Patient Location: [address] [place] [address] Study Date: 05/27/2017 08:45 AM Height: 64 in Weight: 195 lb BSA: 1.9 m2 Procedure: A complete two-dimensional transthoracic echocardiogram was performed (2D, M-mode, spectral and color flow Doppler). The study was technically difficult with many images being suboptimal in quality. Reason For Study: CHF Ordering Physician: HIMA SHELTON Performed By: Brooklynn Pineda Interpretation Summary LV EF is 25% The study was technically difficult with many images being suboptimal in quality. Left ventricular systolic function is severely reduced. Doppler measurements suggest pseudonormalized left ventricular relaxation, which is associated with grade II/IV or mild to moderate diastolic dysfunction There is normal left ventricular wall thickness. The left ventricle is moderately dilated. There is apical wall akinesis The right ventricular systolic function is normal. The left atrium is moderately dilated. There is a mild amount of mitral regurgitation There is no mitral valve stenosis. There is no aortic valve stenosis No aortic regurgitation is present. There is a trace to mild amount of tricuspid regurgitation Right ventricular systolic pressure is at the upper limits of normal Minimal pericardial effusion. MMode/2D Measurements & Calculations RVDd: 2.9 cm LVIDd: 7.7 cm FS: 11.0 % Ao root diam: IVSd: 0.74 cm LVIDs: 6.8 cm EDV(Teich): 3.3 cm LVPWd: 1.1 cm 312.6 ml Ao root area: ESV(Teich): 240.3 ml 8.6 cm2 EF(Teich): 23.1 % LA dimension: 4.6 cm LVLd ap4: 9.4 cm SV(MOD-sp4): EDV(MOD-sp4): 53.0 ml 182.0 ml LVLs ap4: 9.0 cm ESV(MOD-sp4): 129.0 ml EF(MOD-sp4): 29.1 % Doppler Measurements & Calculations MV E max ashwini: MV P1/2t max ashwini: Ao V2 max: LV V1 max P.2 cm/sec 102.2 cm/sec 122.2 cm/sec 3.0 mmHg MV P1/2t: 49.4 msec Ao max PG: LV V1 max: MVA(P1/2t): 4.5 cm2 6.0 mmHg 85.9 cm/sec MV dec slope: 605.5 cm/sec2 PA V2 max: TR max ashwini: 102.7 cm/sec 243.0 cm/sec PA max P.2 mmHgTR max P.6 mmHg Left Ventricle The left ventricle is moderately dilated. There is normal left ventricular wall thickness. Left ventricular systolic function is severely reduced. LV EF is 25%. Doppler measurements suggest pseudonormalized left ventricular relaxation, which is associated with grade II/IV or mild to moderate diastolic dysfunction. There is apical wall akinesis. Right Ventricle The right ventricle is grossly normal size. There is normal right ventricular wall thickness. The right ventricular systolic function is normal. Atria The right atrium is normal in size. The left atrium is moderately dilated. Interarterial septum not well visualized and not well dopplered. Cannot comment on ASD/PFO presence. Mitral Valve The mitral valve leaflets are sclerotic, but show no functional abnormalities. There is no mitral valve stenosis. There is a mild amount of mitral regurgitation. Aortic Valve The aortic valve is grossly normal. There is no aortic valve stenosis. No aortic regurgitation is present. Tricuspid Valve The tricuspid valve is not well visualized secondary to technical limitations. There is no tricuspid stenosis. There is a trace to mild amount of tricuspid regurgitation. Right ventricular systolic pressure is at the upper limits of normal. Pulmonic Valve The pulmonic valve is not well visualized. Great Vessels The aortic root is not well visualized but is probably normal size. The inferior vena cava appeared normal and decreased > 50% with respiration (RAP 5-10 mmHg). Effusions Minimal pericardial effusion. : HIMA SHELTON > Enrique Sierra
[2017-05-27] MEDS: ATORVASTATIN CALCIUM 40 MG TABLET PO SCH (22:01)
[2017-05-28] MEDS: PATIROMER 8.4 GM SUSP PACKET PO SCH (06:00)
[2017-05-28] MEDS: LANSOPRAZOLE 15 MG TAB.RAP.DR PO SCH (06:18)
[2017-05-28] MEDS: HYDRALAZINE HCL 25 MG TABLET PO SCH ×2 (06:18→13:29)
[2017-05-28] MEDS: ENOXAPARIN SODIUM INJ 30 MG/0.3 ML DISP.SYRIN SUBCUT SCH (09:36)
[2017-05-28] MEDS: ASPIRIN 81 MG TABLET, ENT COATED PO SCH (09:37)
[2017-05-28] MEDS: GLIPIZIDE 5 MG TABLET PO SCH (09:37)
[2017-05-28] MEDS: CARVEDILOL 6.25 MG TABLET PO SCH (09:37)
[2017-05-28] MEDS ORDERED: FUROSEMIDE 20 MG TABLET PO SCH (10:00)
--- NOTE | 2017-05-28 18:14 | PDOC DISCHARGE SUMMARY ---
General - Admit/Disc Date/PCP Admission Date/Primary Care Provider: 05/25/17 22:47 HIMA NIKTIA Discharge Date: 05/28/17 - Discharge Diagnosis (1) Acute on chronic combined systolic (congestive) and diastolic (congestive) heart failure Is this a current diagnosis for this admission?: Yes (2) CKD (chronic kidney disease) stage 4, GFR 15-29 ml/min Is this a current diagnosis for this admission?: Yes (3) Elevated troponin I level Is this a current diagnosis for this admission?: Yes (4) Hypertension Is this a current diagnosis for this admission?: Yes (5) CAD (coronary atherosclerotic disease) Is this a current diagnosis for this admission?: Yes (6) Chronic a-fib Is this a current diagnosis for this admission?: Yes (7) Diabetes mellitus type 2 with complications Is this a current diagnosis for this admission?: Yes (8) HLD (hyperlipidemia) Is this a current diagnosis for this admission?: Yes (9) 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) Is this a current diagnosis for this admission?: Yes (10) Osteoarthritis involving multiple joints on both sides of body Is this a current diagnosis for this admission?: Yes - Additional Information Resuscitation Status: Full Code Discharge Diet: Cardiac, Diabetic Discharge Activity: Activity As Tolerated, Balance Activity w/Rest, Weigh Daily Home Medications: Aspirin [Ecotrin 81 mg EC Tablet] 81 mg PO DAILY 10/11/16 Atorvastatin Calcium 40 mg PO QHS 10/11/16 Hydralazine HCl 37.5 mg PO Q8 10/11/16 Tramadol HCl 50 mg PO Q12 10/11/16 Carvedilol [Coreg 6.25 mg Tablet] 6.25 mg PO Q12 #60 tablet 10/16/16 Patiromer Calcium Sorbitex [Veltassa 8.4 gm Susp Packet] 8.4 gm PO DAILY #30 packet 10/16/16 Furosemide [Lasix 20 mg Tablet] 20 mg PO DAILY 05/26/17 Glipizide [Glucotrol 5 mg Tablet] 2.5 mg PO DAILY 05/26/17 History of Present Illness Patient complains of: Worsening shortness of breath History of Present Illness: SORIN PINEDA is 77-years old male patient known to my practice who presented to the ED with worsening shortness of breath over preceding 3-4 days. Patient noted bilateral leg swelling and described shortness of breath with exertion and orthopnea. He denied any associated palpitation, chest pin, or PND. He reported compliance with his prescribed medication and dietary restrictions regard fluid and salt intake. There is no recent alcohol intake or abuse. No excessive salt or water consumption. His functional level have been limited over last couple of days due to associated difficulty with breathing. he denied any fever, chills, coughing or sputum production. Patient admitted to episode of coughing about 1 month ago. he admitted to gaining about 4 lbs in recent time. He denies any syncope, headache, weakness or numbness. His initial evaluation in the ED was remarkable for elevated blood pressure and persistent hypoxemia necessitating use of BiPAP support and IV Nitroglycerine therapy. His laboratory findings include elevated NT-ProBNP, BUN, and creatinine as well as chest X ray that suggest pulmonary edema and vascular congestion. His morbidities include Congestive Heart Failure, Chronic Atrial Fibrillation s/p pacemaker/defibrillator implant, Coronary Artery Disease, Old MD, Hyperlipidemia , Diabetes Mellitus Type 2, and CKD stage 4. He was advised hospitalization for further evaluation and management. Hospital Course Hospital Course: Patient was initially management with BiPAP and IV Lasix therapy with improvement in his symptoms. He was maintained on IV Lasix therapy with continued diuresis and improvement in his shortness of breath. His echocardiogram revealed significant decline in his LVEF to about 25%. Comparative to his echocardiogram completed in Jul, 2016 at 35-40%. I discussed case with Dr Bryn Valle, tool crib lead, at [phone] that has been involved with his care regard adjustment in his medication management. In view of his chronic kidney disease stage 4 patient will continue on all current mediation. He will follow up with Dr. Valle as soon as possible post hospitalization for further evaluation and management. He was seen in consultation by Dr. Cool, pipe stem sawyer due to initial persistent hypoxemia. His slightly elevated Troponin I level was attributed to his CKD status. he will follow up with me in the office as instructed upon discharge. Physical Exam Vital Signs: Temp Pulse Resp BP Pulse Ox 98.4 F 68 16 120/70 96 05/28/17 11:35 05/28/17 14:00 05/28/17 11:35 05/28/17 11:35 05/28/17 11:35 Intake & Output 05/27/17 05/28/17 05/29/17 06:59 06:59 06:59 Intake Total 715 750 577 Output Total 8110 424 675 Balance -2185 -200 -98 Weight 88.3 kg 87.4 kg Physical Exam: General appearance: PRESENT: no acute distress, obese, well-developed, well- nourished Head exam: PRESENT: atraumatic, normocephalic Eye exam: PRESENT: conjunctiva pink, EOMI, PERRLA. ABSENT: scleral icterus Mouth exam: PRESENT: moist Respiratory exam: PRESENT: clear to auscultation amelia, decreased breath sounds - at lung bases Cardiovascular exam: PRESENT: RRR. ABSENT: diastolic murmur, rubs, systolic murmur GI/Abdominal exam: PRESENT: normal bowel sounds, soft. ABSENT: distended, guarding, mass, organomegaly, rebound, tenderness Extremities exam: PRESENT: pedal edema - resolved significantly Neurological exam: PRESENT: alert, awake, oriented to person, oriented to place , oriented to time, oriented to situation, CN II-XII grossly intact. ABSENT: motor sensory deficit Psychiatric exam: PRESENT: appropriate affect, normal mood. ABSENT: homicidal ideation, suicidal ideation Skin exam: PRESENT: dry, intact, warm. ABSENT: cyanosis, rash Results Laboratory Results: 05/27/17 02:26 05/27/17 02:26 05/26/17 05/26/17 05/26/17 10:20 10:20 18:05 Creatine Kinase 89 148 CK-MB (CK-2) 2.09 Troponin I 0.125 NT-Pro-B Natriuret Pep 50585 H 05/26/17 05/27/17 05/27/17 18:05 02:26 02:26 Creatine Kinase 163 CK-MB (CK-2) 2.91 2.32 Troponin I 0.146 0.138 NT-Pro-B Natriuret Pep Impressions: Chest X-Ray 05/27/17 06:00 IMPRESSION: Congestive failure pattern as noted above. Qualifiers - * PATEINT BEING DISCHARGED WITH ANY OF THE FOLLOWING DIAGNOSIS?: Heart Failure HF Pt being discharged on ACEI for LVEF less than 40%?: No Reason(s) for not prescribing ACEI:: Contraindicated - advanced CKD HF Pt being discharged on ARBS for LVEF less than 40%?: No Reason(s) for not prescribing ARBS:: Contraindicated - advanced CKD HF Pt with Afib discharged with Warfarin?: No Reason(s) for not prescribing Warfarin:: Not indicated HF Pt discharged on evidence-based Beta Stef:: Yes Plan Discharge Plan: D/C home today. Follow in the office as instructed and follow up with Dr. Bryn Valle will be established from his office on 05/29/17.
[2017-05-28 18:29] VITALS: BP 166/94
--- NOTE | 2017-06-01 18:29 | PDOC CONSULTATION ---
Consultation Consult Date: 05/26/17 Attending physician:: HIMA SHELTON Consult reason:: resp failure History of Present Illness Admission Date/PCP: 05/25/17 22:47 HIMA SHELTON History of Present Illness: SORIN PINEDA is a 77 year old male c/o ARREAGA and SOB as well as increased wheezing,notes cough yellow-green phlegm,no hemoptysis,nausea,vomiting,sore throat or rhinorrhea Past Medical History Cardiac Medical History: Reports: Congestive Heart Failure, Coronary Artery Disease, Myocardial Infarction, Hyperlipidema Endocrine Medical History: Reports: Diabetes Mellitus Type 2 - Borderline Past Surgical History Past Surgical History: Reports: Coronary Stent, Internal Defibrillator, Orthopedic Surgery - Right clavicle fracture repair, Pacemaker, Other - Head injury requiring metal plate in his skull Social History Lives with: Family Smoking Status: Former Smoker Frequency of Alcohol Use: None - Quit 50 years ago Hx Recreational Drug Use: No Drugs: None Hx Prescription Drug Abuse: No Family History Parental Family History Reviewed: No Children Family History Reviewed: No Sibling(s) Family History Reviewed.: No Medication/Allergy Home Medications: Aspirin [Ecotrin 81 mg EC Tablet] 81 mg PO DAILY 10/11/16 Atorvastatin Calcium 40 mg PO QHS 10/11/16 Hydralazine HCl 37.5 mg PO Q8 10/11/16 Tramadol HCl 50 mg PO Q12 10/11/16 Carvedilol [Coreg 6.25 mg Tablet] 6.25 mg PO Q12 #60 tablet 10/16/16 Patiromer Calcium Sorbitex [Veltassa 8.4 gm Susp Packet] 8.4 gm PO DAILY #30 packet 10/16/16 Furosemide [Lasix 20 mg Tablet] 20 mg PO DAILY 05/26/17 Glipizide [Glucotrol 5 mg Tablet] 2.5 mg PO DAILY 05/26/17 Allergies/Adverse Reactions: No Known Allergies Allergy (Unverified 05/25/17 18:19) Review of Systems Constitutional: ABSENT: anorexia, headache(s), night sweats Eyes: ABSENT: visual disturbances Ears: ABSENT: hearing changes Nose, Mouth, and Throat: ABSENT: sore throat Cardiovascular: ABSENT: palpitations Respiratory: ABSENT: hemoptysis Gastrointestinal: ABSENT: abdominal pain, bloating, coffee ground emesis, hematemesis, hematochezia, melena Genitourinary: ABSENT: dysuria, hematuria Musculoskeletal: ABSENT: deformity Integumentary: ABSENT: pruritus Neurological: ABSENT: abnormal gait, abnormal movements, abnormal speech, confusion, focal weakness, frequent falls, lack of coordination, memory loss Psychiatric: ABSENT: hallucinations, homidical ideation, suicidal ideation Endocrine: ABSENT: cold intolerance, heat intolerance, menstrual abnormalities, polydipsia, polyuria Hematologic/Lymphatic: ABSENT: easy bruising Physical Exam Vital Signs: Temp Pulse Resp BP Pulse Ox 98.5 F 89 19 122/76 94 05/25/17 18:27 05/25/17 18:27 05/26/17 10:01 05/26/17 10:01 05/26/17 10:01 Intake & Output 05/25/17 05/26/17 05/27/17 06:59 06:59 06:59 Output Total 1000 Balance -1000 General appearance: PRESENT: no acute distress, cooperative, disheveled, obese Head exam: PRESENT: atraumatic, normocephalic Eye exam: PRESENT: conjunctiva pale, EOMI Mouth exam: PRESENT: moist, neck supple, tongue midline Teeth exam: PRESENT: poor dentation Neck exam: ABSENT: carotid bruit, JVD, lymphadenopathy, thyromegaly, tracheal deviation, tracheostomy Respiratory exam: PRESENT: decreased breath sounds, prolonged expiratory phas, rhonchi, symmetrical, wheezes. ABSENT: rales, stridor, tachypnea Cardiovascular exam: PRESENT: RRR, +S1, +S2 Pulses: PRESENT: normal radial pulses GI/Abdominal exam: PRESENT: diminished bowel sounds, soft Extremities exam: ABSENT: clubbing, joint swelling Musculoskeletal exam: ABSENT: deformity, dislocation Neurological exam: PRESENT: awake Skin exam: PRESENT: dry, warm Results Laboratory Results: 05/26/17 10:20 05/26/17 10:20 05/26/17 05/26/17 05/26/17 10:20 10:20 10:40 WBC 5.1 RBC 4.13 L Hgb 11.3 L Hct 35.1 L MCV 85 MCH 27.2 MCHC 32.0 RDW 16.7 H Plt Count 184 Seg Neutrophils % 74.9 Lymphocytes % 12.3 L Monocytes % 9.7 Eosinophils % 2.5 Basophils % 0.6 Absolute Neutrophils 3.8 Absolute Lymphocytes 0.6 Absolute Monocytes 0.5 Absolute Eosinophils 0.1 Absolute Basophils 0.0 Carbonic Acid 1.56 H HCO3/H2CO3 Ratio 17:1 ABG pH 7.34 L ABG pCO2 51.9 H ABG pO2 81.0 ABG HCO3 27.6 H ABG O2 Saturation 95.2 ABG Base Excess 1.2 FiO2 28% Sodium 145.1 H Potassium 5.0 Chloride 107 Carbon Dioxide 29 Anion Gap 9 BUN 45 H Creatinine 2.95 H Est GFR ( Amer) 25 L Est GFR (Non-Af Amer) 21 L Glucose 77 Calcium 11.1 H Total Bilirubin 0.9 AST 39 ALT 85 H Alkaline Phosphatase 97 Total Protein 5.8 L Albumin 3.5 05/26/17 05/26/17 10:20 10:20 Creatine Kinase 89 CK-MB (CK-2) 2.09 Troponin I 0.125 NT-Pro-B Natriuret Pep 25019 H Impressions: Chest X-Ray 05/26/17 10:00 IMPRESSION: Right lower lobe consolidation, worrisome for pneumonia. Assessment & Plan - Diagnosis (1) CHF (congestive heart failure) Qualifiers: Heart failure type: combined systolic and diastolic Heart failure chronicity: acute on chronic Qualified Code(s): I50.43 - Acute on chronic combined systolic (congestive) and diastolic (congestive) heart failure Is this a current diagnosis for this admission?: Yes Plan: several factor leading to dypsnea (2) CKD (chronic kidney disease) stage 4, GFR 15-29 ml/min Is this a current diagnosis for this admission?: Yes Plan: declining (3) Chronic a-fib Is this a current diagnosis for this admission?: Yes Plan: stable (4) Dyspnea Qualifiers: Dyspnea type: shortness of breath Qualified Code(s): R06.02 - Shortness of breath; R06.00 - Dyspnea, unspecified; R06.01 - Orthopnea Is this a current diagnosis for this admission?: Yes Plan: CRF+CHF+AFIB (5) Hypertension Qualifiers: Hypertension type: essential hypertension Qualified Code(s): I10 - Essential (primary) hypertension Is this a current diagnosis for this admission?: Yes (6) Pulmonary edema Is this a current diagnosis for this admission?: Yes
--- NOTE | 2017-06-01 18:32 | PDOC PROGRESS REPORT ---
Subjective Progress Note for:: 05/27/17 Subjective:: still sob Reason For Visit: ACUTE ON CHRONIC CHF, CKD STAGE 4, DM TYPE 2 Physical Exam Vital Signs: Temp Pulse Resp BP Pulse Ox 98.4 F 86 18 123/73 100 05/27/17 11:45 05/27/17 11:45 05/27/17 11:45 05/27/17 11:45 05/27/17 11:45 Intake & Output 05/26/17 05/27/17 05/28/17 06:59 06:59 06:59 Intake Total 715 Output Total 2900 Balance -2185 Weight 88.3 kg General appearance: PRESENT: cooperative, disheveled, mild distress Head exam: PRESENT: atraumatic, normocephalic Eye exam: PRESENT: conjunctiva pale, EOMI Mouth exam: PRESENT: moist, neck supple Neck exam: ABSENT: carotid bruit, JVD, lymphadenopathy, thyromegaly, tracheal deviation, tracheostomy Respiratory exam: PRESENT: rales, rhonchi, tachypnea, wheezes. ABSENT: decreased breath sounds, prolonged expiratory phas, stridor Cardiovascular exam: PRESENT: irregular rhythm Pulses: PRESENT: normal radial pulses GI/Abdominal exam: PRESENT: diminished bowel sounds, soft Extremities exam: PRESENT: pedal edema. ABSENT: clubbing Musculoskeletal exam: ABSENT: deformity, dislocation Neurological exam: PRESENT: alert, awake Psychiatric exam: PRESENT: flat affect Skin exam: PRESENT: dry, warm Results Laboratory Results: 05/27/17 02:26 05/27/17 02:26 05/26/17 05/27/17 05/27/17 18:05 02:26 02:26 WBC 5.3 RBC 4.05 L Hgb 11.1 L Hct 34.8 L MCV 86 MCH 27.3 MCHC 31.8 L RDW 17.4 H Plt Count 173 Seg Neutrophils % 73.5 Lymphocytes % 13.3 Monocytes % 10.0 Eosinophils % 2.7 Basophils % 0.5 Absolute Neutrophils 3.9 Absolute Lymphocytes 0.7 Absolute Monocytes 0.5 Absolute Eosinophils 0.1 Absolute Basophils 0.0 Carbonic Acid HCO3/H2CO3 Ratio ABG pH ABG pCO2 ABG pO2 ABG HCO3 ABG O2 Saturation ABG Base Excess FiO2 Sodium 144.1 Potassium 4.6 Chloride 109 H Carbon Dioxide 26 Anion Gap 9 BUN 50 H Creatinine 3.28 H Est GFR ( Amer) 22 L Est GFR (Non-Af Amer) 18 L Glucose 93 Calcium 10.4 H Magnesium 2.3 2.2 Total Bilirubin 0.4 AST 34 ALT 76 H Alkaline Phosphatase 93 Total Protein 5.7 L Albumin 3.2 L 05/27/17 06:33 WBC RBC Hgb Hct MCV MCH MCHC RDW Plt Count Seg Neutrophils % Lymphocytes % Monocytes % Eosinophils % Basophils % Absolute Neutrophils Absolute Lymphocytes Absolute Monocytes Absolute Eosinophils Absolute Basophils Carbonic Acid 1.38 H HCO3/H2CO3 Ratio 17:1 ABG pH 7.34 L ABG pCO2 46.0 H ABG pO2 94.3 ABG HCO3 24.0 ABG O2 Saturation 96.7 ABG Base Excess -1.9 FiO2 26% Sodium Potassium Chloride Carbon Dioxide Anion Gap BUN Creatinine Est GFR ( Amer) Est GFR (Non-Af Amer) Glucose Calcium Magnesium Total Bilirubin AST ALT Alkaline Phosphatase Total Protein Albumin 05/26/17 05/26/17 05/26/17 10:20 10:20 18:05 Creatine Kinase 89 148 CK-MB (CK-2) 2.09 Troponin I 0.125 NT-Pro-B Natriuret Pep 90604 H 05/26/17 05/27/17 05/27/17 18:05 02:26 02:26 Creatine Kinase 163 CK-MB (CK-2) 2.91 2.32 Troponin I 0.146 0.138 NT-Pro-B Natriuret Pep Assessment & Plan - Diagnosis (1) Acute on chronic combined systolic (congestive) and diastolic (congestive) heart failure Is this a current diagnosis for this admission?: Yes Plan: slightly improved (2) CKD (chronic kidney disease) stage 5, GFR less than 15 ml/min Is this a current diagnosis for this admission?: Yes Plan: unchanged (3) Dyspnea Qualifiers: Dyspnea type: shortness of breath Qualified Code(s): R06.02 - Shortness of breath; R06.00 - Dyspnea, unspecified; R06.01 - Orthopnea Plan: CRF+CHF+AFIB (4) Hypertension Qualifiers: Hypertension type: essential hypertension Qualified Code(s): I10 - Essential (primary) hypertension Is this a current diagnosis for this admission?: Yes (5) Chronic a-fib Is this a current diagnosis for this admission?: Yes Plan: stable
== END 2017-05-28 18:45 | disposition home or self-care (01) | DRG 291 ==
LOC: ER 18:17 → EH 22:47 → 3W 05-26 14:57
PROVIDERS: ADMIT Internal Medicine Geriatric Medicine; ATTEND Internal Medicine Geriatric Medicine
PROC: 5A09357 Assistance with Respiratory Ventilation, Less than 24 Consecutive Hours, Continuous Positive Airway Pressure (ICD-10-PCS; principal; 2017-05-25)
DX: I13.0 Hypertensive heart and chronic kidney disease with heart failure and stage 1 through stage 4 chronic kidney disease, or unspecified chronic kidney disease (principal); I50.43 Acute on chronic combined systolic (congestive) and diastolic (congestive) heart failure; E11.22 Type 2 diabetes mellitus with diabetic chronic kidney disease; N18.4 Chronic kidney disease, stage 4 (severe); I48.2 Chronic atrial fibrillation; I25.10 Atherosclerotic heart disease of native coronary artery without angina pectoris; E78.00 Pure hypercholesterolemia, unspecified; M15.3 Secondary multiple arthritis; R09.02 Hypoxemia; I25.2 Old myocardial infarction; Z79.82 Long term (current) use of aspirin; Z79.899 Other long term (current) drug therapy; Z95.0 Presence of cardiac pacemaker; Z87.891 Personal history of nicotine dependence; Z95.5 Presence of coronary angioplasty implant and graft
CPT/HCPCS: 36415; 71045; 71046; 80053; 82550; 82553; 82803; 82962; 83735; 83880; 84484; 85025; 85610; 85730; 93005; 93010; 93306; 94660; 96374; 99285; J1650; J1940; J3490

== ENCOUNTER → 2017-06-10 | Outpatient (CLI) | payer MEDICARE ==
[2017-06-10 08:30] LABS: HEMOGLOBIN 11.2 g/dL (13.5-17.0); MEAN CORPUSCULAR HEMOGLOBIN 27.2 pg (27.0-33.4); MEAN CORPUSCULAR VOLUME 85 fl (80-97); PLATELET COUNT 175 10^3/uL (150-450); RED BLOOD COUNT 4.11 10^6/uL (4.35-5.55); RED CELL DISTRIBUTION WIDTH 16.2 % (11.5-14.0); WHITE BLOOD COUNT 4.5 10^3/uL (4.0-10.5)
[2017-06-10 08:55] LABS: ALANINE AMINOTRANSFERASE 32 U/L (21-72); ALBUMIN 3.5 g/dL (3.5-5.0); ALKALINE PHOSPHATASE 83 U/L (38-126); ANION GAP 8 (5-19); ASPARTATE AMINO TRANSFERASE 20 U/L (17-59); BILIRUBIN,DIRECT 0.3 mg/dL (0.0-0.4); BILIRUBIN,TOTAL 0.3 mg/dL (0.2-1.3); BLOOD UREA NITROGEN 50 mg/dL (7-20); CALCIUM 10.8 mg/dL (8.4-10.2); CARBON DIOXIDE 26 mmol/L (22-30); CHLORIDE 112 mmol/L (98-107); GLUCOSE 105 mg/dL (75-110); POTASSIUM 5.4 mmol/L (3.6-5.0); SODIUM 146.4 mmol/L (137-145); TOTAL PROTEIN 6.2 g/dL (6.3-8.2)
== END ==
LOC: OD 07:50
PROVIDERS: ATTEND Internal Medicine Geriatric Medicine
DX: I50.42 Chronic combined systolic (congestive) and diastolic (congestive) heart failure (principal)
CPT/HCPCS: 36415; 80053; 85027

== ENCOUNTER → 2017-06-27 | Outpatient (CLI) | payer MEDICARE ==
[2017-06-27 08:47] LABS: ABSOLUTE EOSINOPHILS # (AUTO) 0.2 10^3/uL (0.0-0.6); ABSOLUTE LYMPHOCYTES (AUTO) 0.7 10^3/uL (0.5-4.7); ABSOLUTE MONOCYTES (AUTO) 0.5 10^3/uL (0.1-1.4); ABSOLUTE NEUT (AUTO) 2.5 10^3/uL (1.7-8.2); BASOPHILS % (AUTO) 0.7 % (0-2); EOSINOPHILS % (AUTO) 4.3 % (0-6); HEMATOCRIT 35.7 % (37.9-51.0); HEMOGLOBIN 11.3 g/dL (13.5-17.0); MEAN CORPUSCULAR HEMOGLOBIN 27.1 pg (27.0-33.4); MEAN CORPUSCULAR HGB CONC 31.6 g/dL (32.0-36.0); MEAN CORPUSCULAR VOLUME 86 fl (80-97); MONOCYTES % (AUTO) 12.9 % (3-13); PLATELET COUNT 179 10^3/uL (150-450); RED BLOOD COUNT 4.17 10^6/uL (4.35-5.55); SEGMENTED NEUTROPHILS % (AUTO) 64.1 % (42-78); TOTAL CELLS COUNTED % (AUTO) 100 %; WHITE BLOOD COUNT 3.9 10^3/uL (4.0-10.5)
[2017-06-27 09:08] LABS: ALBUMIN 3.9 g/dL (3.5-5.0); ANION GAP 11 (5-19); BLOOD UREA NITROGEN 42 mg/dL (7-20); CALCIUM 11.1 mg/dL (8.4-10.2); CARBON DIOXIDE 27 mmol/L (22-30); CHLORIDE 112 mmol/L (98-107); GLUCOSE 100 mg/dL (75-110); PHOSPHORUS 4.2 mg/dL (2.5-4.5); POTASSIUM 5.1 mmol/L (3.6-5.0); SODIUM 150.2 mmol/L (137-145)
[2017-06-27 10:45] LABS: APPEARANCE,URINE CLEAR; BILIRUBIN,URINE NEGATIVE (NEGATIVE); COLOR,URINE YELLOW; GLUCOSE, URINE NEGATIVE (NEGATIVE); KETONES,URINE NEGATIVE (NEGATIVE); LEUKOCYTE ESTERASE,URINE NEGATIVE (NEGATIVE); NITRITE,URINE NEGATIVE (NEGATIVE); PROTEIN,URINE 30 mg/dL (NEGATIVE); URINE SPECIFIC GRAVITY 1.011; UROBILINOGEN,URINE NEGATIVE mg/dL (<2.0)
[2017-06-28 11:38] LABS: CREATININE URINE 71.4 mg/dL (Not Estab.); MICROALBUMIN URINE 171.2 ug/mL (Not Estab.)
== END ==
LOC: OD 08:02
PROVIDERS: ATTEND Internal Medicine Nephrology
DX: N18.4 Chronic kidney disease, stage 4 (severe) (principal); D50.9 Iron deficiency anemia, unspecified; E21.0 Primary hyperparathyroidism; E55.9 Vitamin D deficiency, unspecified
CPT/HCPCS: 36415; 80048; 81001; 82040; 82043; 82306; 82570; 82728; 83540; 83550; 83970; 84100; 85025

== ENCOUNTER 2017-07-25 07:23 | Inpatient (IN) | payer MEDICARE ==
[2017-07-25] MEDS ORDERED: ASPIRIN 81 MG TABLET, CHEWABLE PO ONE ×2 (07:58→08:47)
[2017-07-25] MEDS ORDERED: NITROGLYCERIN 2% OINTMENT 1 GM PACKET TP ONE (07:58)
--- NOTE | 2017-07-25 08:20 | EKG REPORT ---
SEVERITY:- ABNORMAL ECG - ATRIAL FIBRILLATION, V-RATE 103-140 LOW VOLTAGE IN FRONTAL LEADS NONSPECIFIC T ABNORMALITIES, LATERAL LEADS BORDERLINE PROLONGED QT INTERVAL : Confirmed by: Enrique Sierra 25-Jul-2017 05:18:53
--- NOTE | 2017-07-25 08:31 | RADIOLOGY REPORT (SQ) ---
EXAM DESCRIPTION: CHEST SINGLE VIEW COMPLETED DATE/TIME: 07/25/2017 8:12 am REASON FOR STUDY: cp,sob COMPARISON: Chest films 01/16/2009, 05/25/2017, 05/27/2017 EXAM PARAMETERS: NUMBER OF VIEWS: One view. TECHNIQUE: Single frontal radiographic view of the chest acquired. RADIATION DOSE: NA LIMITATIONS: None. FINDINGS: LUNGS AND PLEURA: Stable chronic pleural thickening bilaterally. No acute infiltrates. No pneumothorax. MEDIASTINUM AND HILAR STRUCTURES: No masses. Contour normal. HEART AND VASCULAR STRUCTURES: Stable moderate cardiomegaly BONES: No acute findings. HARDWARE: Unchanged left-sided pacemaker OTHER: No other significant finding. IMPRESSION: Stable chronic pleural thickening bilaterally. Moderate cardiomegaly. Pacemaker TECHNICAL DOCUMENTATION: JOB ID: [id number] [employer]- All Rights Reserved Reading location - IP/workstation name: [email or web address]
[2017-07-25 08:38] LABS: ABSOLUTE EOSINOPHILS # (AUTO) 0.1 10^3/uL (0.0-0.6); ABSOLUTE LYMPHOCYTES (AUTO) 0.5 10^3/uL (0.5-4.7); ABSOLUTE MONOCYTES (AUTO) 0.5 10^3/uL (0.1-1.4); BASOPHILS % (AUTO) 0.5 % (0-2); EOSINOPHILS % (AUTO) 0.9 % (0-6); HEMATOCRIT 37.9 % (37.9-51.0); HEMOGLOBIN 11.9 g/dL (13.5-17.0); LYMPHOCYTES % (AUTO) 7.6 % (13-45); MEAN CORPUSCULAR HEMOGLOBIN 27.1 pg (27.0-33.4); MEAN CORPUSCULAR HGB CONC 31.4 g/dL (32.0-36.0); MEAN CORPUSCULAR VOLUME 86 fl (80-97); MONOCYTES % (AUTO) 7.5 % (3-13); PLATELET COUNT 188 10^3/uL (150-450); RED BLOOD COUNT 4.38 10^6/uL (4.35-5.55); RED CELL DISTRIBUTION WIDTH 16.7 % (11.5-14.0); SEGMENTED NEUTROPHILS % (AUTO) 83.5 % (42-78); TOTAL CELLS COUNTED % (AUTO) 100 %
[2017-07-25] MEDS ORDERED: FUROSEMIDE INJ/PF 40 MG/4 ML SDV IV ONE (08:51)
[2017-07-25 09:16] LABS: VENOUS BLOOD BASE EXCESS -5.6 mmol/L; VENOUS BLOOD HCO3 22.5 mmol/L (20-32); VENOUS BLOOD PCO2 54.9 mmHg (35-63); VENOUS BLOOD PH 7.23 (7.30-7.42)
[2017-07-25 10:15] LABS: ALANINE AMINOTRANSFERASE 69 U/L (21-72); ALBUMIN 3.8 g/dL (3.5-5.0); ALKALINE PHOSPHATASE 100 U/L (38-126); ANION GAP 12 (5-19); ASPARTATE AMINO TRANSFERASE 56 U/L (17-59); BILIRUBIN,DIRECT 0.4 mg/dL (0.0-0.4); BILIRUBIN,TOTAL 0.9 mg/dL (0.2-1.3); BLOOD UREA NITROGEN 49 mg/dL (7-20); CALCIUM 11.1 mg/dL (8.4-10.2); CARBON DIOXIDE 26 mmol/L (22-30); CHLORIDE 111 mmol/L (98-107); CREATINE KINASE 50 U/L (55-170); GLUCOSE 121 mg/dL (75-110); POTASSIUM 5.3 mmol/L (3.6-5.0); SODIUM 148.9 mmol/L (137-145); TOTAL PROTEIN 6.6 g/dL (6.3-8.2)
[2017-07-25 10:27] LABS: CREATINE KINASE MB 1.28 ng/mL (<4.55)
[2017-07-25 10:34] LABS: TROPONIN I 0.102 ng/mL
[2017-07-25 10:41] LABS: APPEARANCE,URINE CLEAR; BILIRUBIN,URINE NEGATIVE (NEGATIVE); COLOR,URINE STRAW; GLUCOSE, URINE NEGATIVE (NEGATIVE); KETONES,URINE NEGATIVE (NEGATIVE); LEUKOCYTE ESTERASE,URINE NEGATIVE (NEGATIVE); NITRITE,URINE NEGATIVE (NEGATIVE); PROTEIN,URINE 30 mg/dL (NEGATIVE); URINE SPECIFIC GRAVITY 1.008; UROBILINOGEN,URINE NEGATIVE mg/dL (<2.0)
--- NOTE | 2017-07-25 10:43 | ER Document Report ---
ED Cardiac - General Chief Complaint: Chest Pain Stated Complaint: CHEST PAIN Time Seen by Provider: 07/25/17 07:56 Mode of Arrival: Medic Information source: Patient, Emergency Med Personnel Notes: Patient is a 77-year-old male with history of congestive heart failure who presents to the ER via EMS today for difficulty breathing since yesterday. Patient denies any productive cough, fever, chills. He admits to some increased swelling to his bilateral lower extremities. Patient does take 20 mg of Lasix daily. He denies any chest pain today. He is not on oxygen at home. TRAVEL OUTSIDE OF THE [place] IN LAST 30 DAYS: No - Related Data Allergies/Adverse Reactions: No Known Allergies Allergy (Unverified 05/25/17 18:19) Past Medical History - General Information source: Patient - Social History Smoking Status: Former Smoker Frequency of alcohol use: None Drug Abuse: None Family History: Reviewed & Not Pertinent Patient has suicidal ideation: No Patient has homicidal ideation: No - Past Medical History Cardiac Medical History: Reports: Hx Congestive Heart Failure, Hx Coronary Artery Disease, Hx Heart Attack, Hx Hypercholesterolemia Endocrine Medical History: Reports: Hx Diabetes Mellitus Type 2 - Borderline Renal/ Medical History: Denies: Hx Peritoneal Dialysis Past Surgical History: Reports: Hx Cardiac Surgery - pacemaker/defibrillator, Hx Coronary Stent, Hx Internal Defibrillator, Hx Orthopedic Surgery - Right clavicle fracture repair, Hx Pacemaker, Other - Head injury requiring metal plate in his skull Review of Systems - Review of Systems Constitutional: No symptoms reported EENT: No symptoms reported Cardiovascular: No symptoms reported Respiratory: See HPI Gastrointestinal: No symptoms reported Genitourinary: No symptoms reported Male Genitourinary: No symptoms reported Musculoskeletal: No symptoms reported Skin: No symptoms reported Hematologic/Lymphatic: No symptoms reported Neurological/Psychological: No symptoms reported Physical Exam - Vital signs Vitals: Temp Pulse Resp BP Pulse Ox 99.0 F 72 36 H 153/109 H 90 L 07/25/17 07:44 07/25/17 07:44 07/25/17 07:44 07/25/17 07:44 07/25/17 07:44 - Notes Notes: PHYSICAL EXAMINATION: GENERAL: Mildly ill-appearing, cannot get one sentence out clearly without taking a breath, and mild acute distress HEAD: Atraumatic, normocephalic. EYES: Pupils equal round and reactive to light, extraocular movements intact, sclera anicteric, conjunctiva are normal. ENT: ear canals without erythema or foreign body, TMs pearly lopez with good bony landmarks, nares patent, oropharynx clear without exudates. Moist mucous membranes. Airway patent NECK: Normal range of motion, supple without lymphadenopathy LUNGS: Tachypneic, rales heard in bilateral lower lung marx, no wheezes or rhonchi noted HEART: Regular rate and rhythm without murmurs ABDOMEN: Soft, no tenderness. No guarding, no rebound BACK: no vertebral tenderness, normal ROM GI/: no CVA tenderness EXTREMITIES: Normal range of motion, no pitting edema. No cyanosis. NEUROLOGICAL: Cranial nerves grossly intact. Normal sensory/motor exams. PSYCH: Normal mood, normal affect. SKIN: Warm, Dry, normal turgor, no rashes or lesions noted Course - Re-evaluation Re-evalutation: 07/25/17 10:42 Blood gas reveals pH of 7.23, patient placed on BiPAP almost as soon as he arrived here which he did much better on, tachypnea resolved, patient was able to speak to me in complete sentences on BiPAP without having to take deep breaths in between. Patient feels better. Patient has a BNP today of 15,600. Nitroglycerin paste was applied and Lasix was given IV. Vitals are stable. Dr. Duran accepts admission at this time to [facility] for CHF exacerbation. Pt doing much better on bipap. 07/25/17 18:26 - Vital Signs Vital signs: Temp Pulse Resp BP Pulse Ox 98.2 F 67 20 124/96 H 100 07/25/17 16:09 07/25/17 16:09 07/25/17 16:09 07/25/17 16:09 07/25/17 16:09 - Laboratory Result Diagrams: 07/25/17 08:21 07/25/17 09:39 Laboratory results interpreted by me: 07/25/17 07/25/17 07/25/17 08:21 08:43 09:39 Hgb 11.9 L MCHC 31.4 L RDW 16.7 H Seg Neutrophils % 83.5 H Lymphocytes % 7.6 L VBG pH 7.23 L Sodium 148.9 H Potassium 5.3 H Chloride 111 H BUN 49 H Creatinine 2.96 H Est GFR ( Amer) 25 L Est GFR (Non-Af Amer) 21 L Glucose 121 H Calcium 11.1 H Creatine Kinase 50 L NT-Pro-B Natriuret Pep Urine Protein Urine Blood 07/25/17 07/25/17 09:39 09:50 Hgb MCHC RDW Seg Neutrophils % Lymphocytes % VBG pH Sodium Potassium Chloride BUN Creatinine Est GFR ( Amer) Est GFR (Non-Af Amer) Glucose Calcium Creatine Kinase NT-Pro-B Natriuret Pep 69721 H Urine Protein 30 H Urine Blood SMALL H Critical Care Note - Critical Care Note Total time excluding time spent on procedures (mins): 37 - 37___ minutes spent in critical care time with patient, consulted with attending, speaking with family, placing orders and evaluating tests and labs. Discharge - Discharge Clinical Impression: Acute on chronic combined systolic (congestive) and diastolic (congestive) heart failure Condition: Stable Disposition: ADMITTED INPATIENT Admitting Provider: [facility] Admitted: [facility]
[2017-07-25] MEDS ORDERED: DEXTROSE 50%-WATER 25 GM/50 ML DISP.SYRIN IV PRN ×2 (17:30)
[2017-07-25] MEDS ORDERED: DEXTROSE 40% GEL 15 GM TUBE PO PRN ×2 (17:30)
[2017-07-25] MEDS ORDERED: INSULIN LISPRO 100 UNIT/ML 3 ML VIAL SUBCUT PRN (17:30)
[2017-07-25] MEDS ORDERED: GLUCAGON,HUMAN RECOMB 1 MG INJ IM PRN (17:30)
--- NOTE | 2017-07-25 17:48 | PDOC H&P ---
History of Present Illness Admission Date/PCP: 07/25/17 10:50 Patient complains of: Shortness of breath History of Present Illness: SORIN PINEDA is a 77 year old male known to my practice who presented to the ED with worsening shortness of breath over last couple of days. Patient admitted to some dietary indiscretion recently. He claimed compliance with his medication administration. He denied any chest pain, palpitation or coughing but admitted to leg swelling, PND and orthopnea. No fever or chills. His initial evaluation in the ED was remarkable for elevated blood pressure, tachypnea, tachycardia and bilateral leg swelling. His laboratory evaluation revealed significantly elevated NT-ProBNP over 15,000. His last echocardiogram on revealed LVEF about 25% with moderate diastolic dysfunction. He was initially managed with IV Lasix, Nitropaste and BiPAP support. He was advised hospitalization for further evaluation and management. is morbidities include combined HF, HTN, CAD s/p stent angioplasty, Pacemaker/defibrillator device, Hyperlipidemia, Diabetes mellitus type 2 with complications and CKD stage 4. Past Medical History Cardiac Medical History: Reports: Congestive Heart Failure, Coronary Artery Disease, Myocardial Infarction, Hyperlipidema Endocrine Medical History: Reports: Diabetes Mellitus Type 2 - Borderline Past Surgical History Past Surgical History: Reports: Coronary Stent, Internal Defibrillator, Orthopedic Surgery - Right clavicle fracture repair, Pacemaker, Other - Head injury requiring metal plate in his skull Social History Smoking Status: Never Smoker Frequency of Alcohol Use: None Hx Recreational Drug Use: No Drugs: None Hx Prescription Drug Abuse: No Family History Family History: Reviewed & Not Pertinent Parental Family History Reviewed: Yes Children Family History Reviewed: Yes Sibling(s) Family History Reviewed.: Yes Medication/Allergy Home Medications: Aspirin [Ecotrin 81 mg EC Tablet] 81 mg PO DAILY 07/25/17 Atorvastatin Calcium [Lipitor 40 mg Tablet] 40 mg PO QHS 07/25/17 Carvedilol [Coreg 6.25 mg Tablet] 6.25 mg PO Q12 07/25/17 Ergocalciferol (Vitamin D2) [Drisdol 50,000 unit (1.25MG) Capsule] 50,000 unit PO [id number] 07/25/17 Ferrous Sulfate [Feosol 325 mg Tablet] 325 mg PO DAILY 07/25/17 Furosemide [Lasix 20 mg Tablet] 20 mg PO DAILY 07/25/17 Glipizide [Glucotrol 5 mg Tablet] 2.5 mg PO DAILY 07/25/17 Hydralazine HCl [Apresoline 25 mg Tablet] 37.5 mg PO Q8 07/25/17 Linagliptin [Tradjenta] 5 mg PO DAILY 07/25/17 Patiromer Calcium Sorbitex [Veltassa] 8.4 gm PO DAILY 07/25/17 Allergies/Adverse Reactions: No Known Allergies Allergy (Unverified 05/25/17 18:19) Review of Systems Constitutional: ABSENT: chills, fever(s), headache(s), weight gain, weight loss Eyes: ABSENT: visual disturbances Ears: ABSENT: hearing changes Nose, Mouth, and Throat: ABSENT: as per HPI, headache(s), mouth pain, sore throat, vertigo, other Cardiovascular: PRESENT: dyspnea on exertion, edema, orthropnea. ABSENT: as per HPI, chest pain, palpitations, other Respiratory: PRESENT: dyspnea. ABSENT: as per HPI, cough, hemoptysis, sputum, other Gastrointestinal: ABSENT: abdominal pain, constipation, diarrhea, hematemesis, hematochezia, nausea, vomiting Genitourinary: ABSENT: dysuria, hematuria Musculoskeletal: PRESENT: joint swelling - leg swelling. ABSENT: as per HPI, back pain, deformity, muscle weakness, other Integumentary: ABSENT: rash, wounds Neurological: ABSENT: abnormal gait, abnormal speech, confusion, dizziness, focal weakness, syncope Psychiatric: ABSENT: anxiety, depression, homidical ideation, suicidal ideation Endocrine: ABSENT: cold intolerance, heat intolerance, polydipsia, polyuria Hematologic/Lymphatic: ABSENT: easy bleeding, easy bruising, lymphadenopathy Allergic/Immunologic: ABSENT: seasonal rhinorrhea Physical Exam Vital Signs: Temp Pulse Resp BP Pulse Ox 98.2 F 67 20 124/96 H 100 07/25/17 16:09 07/25/17 16:09 07/25/17 16:09 07/25/17 16:09 07/25/17 16:09 Intake & Output 07/24/17 07/25/17 07/26/17 06:59 06:59 06:59 Weight 86.1 kg General appearance: PRESENT: mild distress - remain on supplemental oxygen at 2L /min via nasal cannula Head exam: PRESENT: atraumatic, normocephalic Eye exam: PRESENT: conjunctiva pink, EOMI, PERRLA. ABSENT: scleral icterus Ear exam: PRESENT: normal external ear exam Mouth exam: PRESENT: moist, tongue midline Neck exam: PRESENT: full ROM. ABSENT: carotid bruit, JVD, lymphadenopathy, thyromegaly Respiratory exam: PRESENT: decreased breath sounds - at lung bases Cardiovascular exam: PRESENT: RRR. ABSENT: diastolic murmur, rubs, systolic murmur Pulses: PRESENT: +1 pedal pulses bilateral Vascular exam: PRESENT: normal capillary refill. ABSENT: pallor GI/Abdominal exam: PRESENT: normal bowel sounds, soft. ABSENT: distended, guarding, mass, organolmegaly, rebound, tenderness Rectal exam: PRESENT: deferred Extremities exam: PRESENT: pedal edema Musculoskeletal exam: PRESENT: deformity - related to multiple joints involvement with arthritis Neurological exam: PRESENT: alert, awake, oriented to person, oriented to place , oriented to time, oriented to situation, CN II-XII grossly intact. ABSENT: motor sensory deficit Psychiatric exam: PRESENT: appropriate affect, normal mood. ABSENT: homicidal ideation, suicidal ideation Skin exam: PRESENT: dry, intact, warm. ABSENT: cyanosis, rash Results Laboratory Results: I reviewed his lab results on [employer] and form significant part of my medical decision making. Impressions: Chest X-Ray 07/25/17 07:57 IMPRESSION: Stable chronic pleural thickening bilaterally. Moderate cardiomegaly. Pacemaker Assessment & Plan - Diagnosis (1) Acute on chronic combined systolic (congestive) and diastolic (congestive) heart failure Is this a current diagnosis for this admission?: Yes Plan: See admitting attending physician orders. (2) Hypertension Qualifiers: Hypertension type: essential hypertension Qualified Code(s): I10 - Essential (primary) hypertension Is this a current diagnosis for this admission?: Yes Plan: See admitting attending physician orders. (3) CAD (coronary atherosclerotic disease) Qualifiers: Coronary Disease-Associated Artery/Lesion type: unspecified vessel or lesion type Associated angina: without angina Is this a current diagnosis for this admission?: Yes Plan: See admitting attending physician orders. (4) Old PA (myocardial infarction) Is this a current diagnosis for this admission?: Yes Plan: See admitting attending physician orders. (5) CKD (chronic kidney disease) stage 4, GFR 15-29 ml/min Is this a current diagnosis for this admission?: Yes Plan: See admitting attending physician orders. (6) Diabetes mellitus type 2 with complications Qualifiers: Diabetes mellitus vermin exterminator insulin use: without alf use Qualified Code(s): E11.8 - Type 2 diabetes mellitus with unspecified complications Is this a current diagnosis for this admission?: Yes Plan: See admitting attending physician orders. (7) HLD (hyperlipidemia) Qualifiers: Hyperlipidemia type: pure hypercholesterolemia Qualified Code(s): E78.00 - Pure hypercholesterolemia, unspecified Is this a current diagnosis for this admission?: Yes Plan: See admitting attending physician orders. (8) Osteoarthritis involving multiple joints on both sides of body Is this a current diagnosis for this admission?: Yes Plan: See admitting attending physician orders. - Time Time Spent: 50 to 70 Minutes Medications reviewed and adjusted accordingly: Yes Anticipated discharge: Home with Homehealth Within: Other - Inpatient Certification Based on my medical assessment, after consideration of the patient's comorbidities, presenting symptoms, or acuity I expect that the services needed warrant INPATIENT care.: Yes I certify that my determination is in accordance with my understanding of Medicare's requirements for reasonable and necessary INPATIENT services [42 CFR 412.3e].: Yes Medical Necessity: Need Close Monitoring Due to Risk of Patient Decompensation, Need For Continuous Telemetry Monitoring, Risk of Complication if Not Cared For in Hospital Post Hospital Care: D/C Block Captain Documentation - Plan Summary Plan Summary: See admitting attending physician orders.
[2017-07-25] MEDS: CARVEDILOL 6.25 MG TABLET PO SCH (22:16)
[2017-07-25] MEDS: ISOSORBIDE DINITRATE 20 MG TABLET PO SCH (22:17)
[2017-07-25] MEDS: HYDRALAZINE HCL 25 MG TABLET PO SCH (22:17)
[2017-07-25] MEDS: ATORVASTATIN CALCIUM 40 MG TABLET PO SCH (22:17)
[2017-07-26] MEDS: ISOSORBIDE DINITRATE 20 MG TABLET PO SCH ×3 (06:08→22:05)
[2017-07-26] MEDS: HYDRALAZINE HCL 25 MG TABLET PO SCH ×3 (06:09→22:03)
--- NOTE | 2017-07-26 09:42 | PDOC PROGRESS REPORT ---
Subjective Progress Note for:: 07/26/17 Subjective:: Patient was admitting in the hospital probably acute congestive heart failure with respiratory failure and currently doing much better Patients off the BiPAP Since denied any chest pain denied any shortness of the breath Have a EKG so some questionable A. fib which patient does not have any history of A. fib in the past Patients have underlying chronic kidney disease Reason For Visit: ACUTE ON CHRONIC SYSTOLIC CHF Physical Exam Vital Signs: Temp Pulse Resp BP Pulse Ox 97.7 F 78 18 103/62 97 07/26/17 07:08 07/26/17 07:08 07/26/17 07:08 07/26/17 07:08 07/26/17 07:08 Intake & Output 07/25/17 07/26/17 07/27/17 06:59 06:59 06:59 Intake Total 362 Output Total 1075 Balance -713 Weight 84.8 kg General appearance: PRESENT: no acute distress, well-developed, well-nourished Head exam: PRESENT: atraumatic, normocephalic Eye exam: PRESENT: conjunctiva pink, EOMI, PERRLA. ABSENT: scleral icterus Ear exam: PRESENT: normal external ear exam Mouth exam: PRESENT: moist, tongue midline Neck exam: PRESENT: full ROM. ABSENT: carotid bruit, JVD, lymphadenopathy, thyromegaly Respiratory exam: PRESENT: clear to auscultation amelia Cardiovascular exam: PRESENT: RRR. ABSENT: diastolic murmur, rubs, systolic murmur Pulses: PRESENT: normal dorsalis pedis pul, +2 pedal pulses bilateral Vascular exam: PRESENT: normal capillary refill GI/Abdominal exam: PRESENT: normal bowel sounds, soft. ABSENT: distended, guarding, mass, organolmegaly, rebound, tenderness Rectal exam: PRESENT: deferred Extremities exam: PRESENT: pedal edema Musculoskeletal exam: PRESENT: ambulatory Neurological exam: PRESENT: alert, awake, oriented to person, oriented to place , oriented to time, oriented to situation, CN II-XII grossly intact. ABSENT: motor sensory deficit Psychiatric exam: PRESENT: appropriate affect, normal mood. ABSENT: homicidal ideation, suicidal ideation Skin exam: PRESENT: dry, intact, warm. ABSENT: cyanosis, rash Results Impressions: Chest X-Ray 07/25/17 07:57 IMPRESSION: Stable chronic pleural thickening bilaterally. Moderate cardiomegaly. Pacemaker Assessment & Plan - Diagnosis (1) Acute on chronic combined systolic (congestive) and diastolic (congestive) heart failure Is this a current diagnosis for this admission?: Yes Plan: Continues to IV Lasix (2) Acute kidney injury Is this a current diagnosis for this admission?: Yes Plan: Continues to monitor (3) Anemia Qualifiers: Anemia type: due to chronic kidney disease Chronic kidney disease stage: stage 5, not on chronic dialysis Qualified Code(s): N18.5 - Chronic kidney disease, stage 5 Is this a current diagnosis for this admission?: Yes (4) CAD (coronary atherosclerotic disease) Qualifiers: Coronary Disease-Associated Artery/Lesion type: unspecified vessel or lesion type Associated angina: without angina Is this a current diagnosis for this admission?: Yes Plan: We consult the cardiology for further evaluations (5) CKD (chronic kidney disease) stage 4, GFR 15-29 ml/min Is this a current diagnosis for this admission?: Yes (6) Chronic a-fib Is this a current diagnosis for this admission?: Yes Plan: Patient have underlying chronic A. fib with consult the cardiology to further evaluations for long-term anticoagulations (7) Diabetes mellitus type 2 with complications Qualifiers: Diabetes mellitus watermelon inspector insulin use: without mcfp use Qualified Code(s): E11.8 - Type 2 diabetes mellitus with unspecified complications Is this a current diagnosis for this admission?: Yes Plan: Currently all stable (8) Hypertension Qualifiers: Hypertension type: essential hypertension Qualified Code(s): I10 - Essential (primary) hypertension Is this a current diagnosis for this admission?: Yes Plan: Currently controlled - Time Time Spent with patient: 15-24 minutes Medications reviewed and adjusted accordingly: Yes Anticipated discharge: Home Within: Other - Inpatient Certification Medical Necessity: Need Close Monitoring Due to Risk of Patient Decompensation Post Hospital Care: 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
[2017-07-26] MEDS ORDERED: FUROSEMIDE INJ/PF 40 MG/4 ML SDV IV SCH (10:00)
[2017-07-26] MEDS: ASPIRIN 81 MG TABLET, ENT COATED PO SCH (10:00)
[2017-07-26] MEDS ORDERED: PATIROMER 8.4 GM SUSP PACKET PO SCH (10:00)
[2017-07-26] MEDS: CARVEDILOL 6.25 MG TABLET PO SCH ×2 (10:00→22:04)
[2017-07-26] MEDS ORDERED: (PENDING PHARMACY ID) (Linagliptin [Tradjenta] 5 MG) PO SCH (10:00)
[2017-07-26] MEDS: SITAGLIPTIN PHOSPHATE 25 MG TABLET PO SCH (10:00)
[2017-07-26] MEDS: FERROUS SULFATE 325 MG TABLET PO SCH (10:01)
[2017-07-26] MEDS: GLIPIZIDE 5 MG TABLET PO SCH (10:01)
[2017-07-26] MEDS ORDERED: SODIUM POLYSTYRENE SULFONATE 15 GM/60 ML PO ONE (11:00)
[2017-07-26 16:15] LABS: INTERNATIONAL RATION (INR) 1.05; PROTHROMBIN TIME 14.3 SEC (11.4-15.4)
[2017-07-26] MEDS ORDERED: PATIROMER 8.4 GM SUSP PACKET PO ONE (18:00)
[2017-07-26] MEDS ORDERED: WARFARIN SODIUM 3 MG TABLET PO SCH (22:00)
[2017-07-26] MEDS: ATORVASTATIN CALCIUM 40 MG TABLET PO SCH (22:03)
[2017-07-27 05:16] LABS: HEMATOCRIT 33.1 % (37.9-51.0); HEMOGLOBIN 10.7 g/dL (13.5-17.0); MEAN CORPUSCULAR HEMOGLOBIN 27.2 pg (27.0-33.4); MEAN CORPUSCULAR HGB CONC 32.3 g/dL (32.0-36.0); MEAN CORPUSCULAR VOLUME 84 fl (80-97); PLATELET COUNT 161 10^3/uL (150-450); RED BLOOD COUNT 3.93 10^6/uL (4.35-5.55); RED CELL DISTRIBUTION WIDTH 15.9 % (11.5-14.0); WHITE BLOOD COUNT 5.2 10^3/uL (4.0-10.5)
[2017-07-27 05:24] LABS: INTERNATIONAL RATION (INR) 1.03
[2017-07-27 05:43] LABS: ALANINE AMINOTRANSFERASE 48 U/L (21-72); ALBUMIN 3.5 g/dL (3.5-5.0); ALKALINE PHOSPHATASE 90 U/L (38-126); ANION GAP 12 (5-19); ASPARTATE AMINO TRANSFERASE 28 U/L (17-59); BILIRUBIN,DIRECT 0.4 mg/dL (0.0-0.4); BILIRUBIN,TOTAL 0.6 mg/dL (0.2-1.3); BLOOD UREA NITROGEN 54 mg/dL (7-20); CALCIUM 10.5 mg/dL (8.4-10.2); CARBON DIOXIDE 26 mmol/L (22-30); CHLORIDE 107 mmol/L (98-107); GLUCOSE 80 mg/dL (75-110); POTASSIUM 3.8 mmol/L (3.6-5.0); SODIUM 145.2 mmol/L (137-145); TOTAL PROTEIN 6.4 g/dL (6.3-8.2)
--- NOTE | 2017-07-27 06:30 | CONSULTATION REPORT E ---
Consultation Report NAME: SORIN PINEDA : 1940 AGE: 77Y DATE: 07/26/2017 316 A TO: LEXIE WILBURN M.D. FROM: HIMA SHELTON M.D. Requesting Physician REASON FOR CONSULTATION: Shortness of breath and symptoms of congestive heart failure, biventricular. HISTORY OF PRESENT ILLNESS: The patient is a 77-year-old male with a known history of cardiomyopathy, congestive heart failure, chronic atrial fibrillation as per records, history of hypertension, diabetes mellitus, coronary artery disease and severe LV dysfunction with severely reduced LV ejection fraction and history of AICD. Although he has been compliant with medication, he has not been very compliant with his diet. Since the past 2-3 days prior to admission, he started having progressive increase in his leg swelling, PND, orthopnea and shortness of breath. Initially with dyspnea on exertion, which culminated in shortness of breath. He denies any firing of his AICD. He denies any chest pain or discomfort. There are no symptoms of TIA or CVA. There is no syncope. The patient does have a history of chronic kidney disease stage 4. Note, the patient states he has no history of bleeding and no history of any symptoms or history which would contraindicate anticoagulation. He states about 3 years prior he was on Coumadin, but was taken off it since he was told that he did not need it. PAST MEDICAL HISTORY: Positive for: 1. History of coronary artery disease. 2. History of MA. 3. History of stent in unknown vessel in the past. No recent anginal symptoms. 4. History of cardiomyopathy with severely reduced LV ejection fraction with AICD placement. The patient states initially after the AICD was placed, it fired only once. He has had 2 battery replacements since the original AICD was placed. 5. He has history of chronic atrial fibrillation. He is not on anticoagulation. 6. He has history of hypertension. 7. Hyperlipidemia. 8. He has past history of diabetes mellitus type 2, noninsulin dependent. 9. He has history of chronic kidney disease stage 4. 10. He has history of osteoarthritis with pain in multiple joints. 11. He has no history of nonsteroidal antiinflammatory drug use. PAST SURGICAL HISTORY: 1. History of coronary stent. 2. Defibrillator. 3. He has had right clavicular fracture repair. 4. He has had history of head injury requiring metal plate in the skull. There is no neurological sequela after that. ALLERGIES: He has no known allergies. SOCIAL HISTORY: He has never smoked. There is history of ETOH abuse. The patient is a F[employer]. He states that his is his surrogate healthcare decision maker. FAMILY HISTORY: Positive for history of hypertension. MEDICATIONS: 1. Aspirin 81 mg p.o. daily. 2. Atorvastatin 40 mg nightly. 3. Coreg 6.25 mg q.12 hours. 4. He is on hypoglycemic precautions with glucose 40% gel, 30 grams p.o. p.r.n. and 30 gram p.o. p.r.n. and 15 grams p.o. p.r.n. 5. He is also on dextrose 50%, 25 grams IV and 12.5 grams IV p.r.n. hypoglycemia. 6. Vitamin D2 50,000 units p.o. every 4 hours. 7. *------* 8. Lasix 40 mg daily. 9. Glipizide 2.5 mg p.o. daily. 10. Glucagon 1 mg IM p.r.n. hypoglycemia. 11. Hydralazine 37.5 mg p.o. q.8 hours. 12. Isosorbide dinitrate 20 mg p.o. q.8 hours. 13. Veltap 8.4 grams p.o. q. 6 a.m. 14. Accu-Chek before breakfast, nightly and 3 times a day with sliding scale insulin coverage. 15. Januvia 25 mg daily. 16. He did get 1 dose of Kayexalate 15 grams p.o. this morning. REVIEW OF SYSTEMS: CONSTITUTIONAL: Denies any fevers, chills or rigors. HEAD: History of head injury, has a metal plate in his head after surgery. No headaches or dizziness. EYES: No history of amblyopia or diplopia. No history of amaurosis fugax. EARS: No history of tinnitus, no history of hearing loss. No history of recurrent ear infections. NOSE: No history of nosebleeds. No history of nasal polyps. MOUTH: No history of altered taste sensation. No ulcers in the mouth. THROAT: No odynophagia or dysphagia. No history of recurrent sore throat. SKIN: No psoriasis, no pruritus, no yellowish discoloration of the skin, no eczema. No history of skin cancer. NECK: No painful or painless swelling of the neck. No lymphadenopathy. LUNGS: No wheezing. No cough. No symptoms suggestive of COPD. No history of COPD. No history of asthma. No history of sleep apnea. No history of pulmonary embolism. No history of pleuritic chest pain. No history of hemoptysis. CARDIAC: History of hypertension. History of coronary artery disease. History of MA in the remote past with history of stent. No recent symptoms of angina. History of cardiomyopathy with severely reduced LV ejection fraction, AICD placement with no firing of the ACID for a long time. History of atrial fibrillation. The patient is with a controlled ventricular response. History of recent symptoms of biventricular failure with PND, orthopnea, leg edema and shortness of breath. No TIA, CVA symptoms. No syncope. GASTROINTESTINAL: No history of GI bleed. No history of peptic ulcer disease. No history of fatty food intolerance. No history of altered bowel movements. No history of hematochezia or melena or hematemesis. MUSCULOSKELETAL: History of osteoarthritis. No history of collagen vascular disease. RENAL: History of chronic kidney disease stage 4. No symptoms of UTI. No history of hematuria, pyuria or dysuria. CENTRAL NERVOUS SYSTEM: No history of TIA or CVA. No history of seizures, headaches, or migraine. History of head injury. The patient has a metal plate. No history of gait imbalance. PSYCHIATRIC: No history of anxiety or depression. No history of suicidal ideation. VASCULAR: No history of calf or buttock claudication. No DVT. HEMATOLOGIC: History of chronic anemia of chronic disease. No bleeding diathesis. No history of clotting disorder. SKIN: No skin rashes or skin lesions. PHYSICAL EXAMINATION: GENERAL: The patient is well built, but slightly obese, well groomed. VITAL SIGNS: He is afebrile with a temperature of 97.6 degrees Fahrenheit. Pulse 78 beats per minute. Blood pressure 117/73 with a mean of 87, respirations 20 per minute, O2 sat 100% on nasal cannula at 1.5 liters per minute. HEENT: Head is atraumatic, normocephalic. Eyes: Pupils are equal, round, regular, reactive to light and accommodation. Extraocular movements are normal. There is no conjunctival pallor. There is no scleral icterus. Ears: Tympanic membranes are intact. External auditory canals are clear. Nose: There is no deviation of the nasal septum, there is no inflammation of the nasal mucosa. Mouth: Mucous membranes of the mouth are moist, tongue is moist, there are no ulcers and no bleeding from the gums. Throat: There is no redness of the oropharynx, there are no exudates. SKIN: There are no skin rashes. There are no petechiae or ecchymosis. There is no skin lesion. NECK: Supple. There is no JVD. There is no lymphadenopathy. There is no goiter. Carotids are equal. There is no bruit. Trachea is central. LUNGS: At present are fairly clear to auscultation and percussion. There is no chest wall tenderness. HEART: S1, S2 heard. S1 is of variable intensity. There is no S3 gallop. There is no S4 gallop. There is a systolic murmur left sternal border at the apex. There is no rub. ABDOMEN: Soft, nontender. There is no hepatosplenomegaly. Bowel sounds are well heard. There are no tender areas or masses. There is no rebound, guarding or rigidity. EXTREMITIES: Femorals are slightly diminished. There are no femoral bruits. Leg pulses are diminished. There is trace pedal edema bilaterally. There is no cyanosis or clubbing. There is no DVT or cellulitis. There is no calf tenderness. CENTRAL NERVOUS SYSTEM: The patient is conscious, awake, alert, oriented x3 with no focal deficits. PSYCHIATRIC: The patient's judgement and insight are intact. His affect is normal. INTAKE: 362 mL. OUTPUT: 1035 mL. DIAGNOSTIC: The patient's EKG shows atrial fibrillation with ventricular response of 113. Nonspecific T-wave abnormalities in lateral leads. Borderline prolonged QT intervals. Chest x-ray shows cardiomegaly. Chronic pulmonary *------* bilaterally, moderate cardiomegaly. No definitive evidence of heart failure. The patient's sodium 148, potassium 5.3. The patient did receive Kayexalate. Chloride 111, CO2 26, BUN 49, creatinine 2.96, GFR reduced to 25 mL. NT-proBNP 15,600. Troponin-I negative at 0.102. Blood sugar 100. ProTime 14.3, INR 1.056. White count 6,000, hemoglobin 7.9, hematocrit 37.9, platelet count 188,000. IMPRESSION: 1. Congestive heart failure. At present seems to be compensated. The patient is able to lie down flat and there is only trace pedal edema and no rales of CHF on physical exam. 2. Cardiomyopathy with severely reduced left ventricular ejection fraction. Note, the patient in 05/2017 had an echocardiogram, which showed an ejection fraction of 25%. 3. Coronary artery disease, history of myocardial infarction, history of stent in unknown vessel, no anginal symptoms. 4. Hypertension, well controlled. 5. Chronic kidney disease stage 4, seems to be stable. 6. Diabetes mellitus type 2, noninsulin dependent. 7. Chronic atrial fibrillation. Note, the patient is not on chronic anticoagulation therapy. The patient's CHADVASc score is 26 and hence high risk for stroke. I have discussed the benefits and risks of anticoagulation with the patient. The patient states that he used to be on Coumadin in the past and hence agrees to be on Coumadin. At present, I do not find any contraindication to starting Coumadin. Coumadin teaching will be given to the patient. We will not place the patient on heparin or Lovenox since the patient has been off anticoagulation for a long time without any event of TIA or CVA. 8. Automated implantable cardioverter defibrillator (ACID) placement, no firing. Note, the patient reminded that he needs to get his AICD checked regularly. He states he has the information at home. 9. Osteoarthritis, at present stable. No major complaints. 10. Hyperlipidemia, continue atorvastatin. RECOMMENDATIONS: Note, since the patient has chronic kidney disease, is stage 4, LISA inhibitors or ARB are contraindicated. The patient is on hydralazine and nitrates, along with Coreg and aspirin, and also continue the patient on Lasix. Continue the patient on antilipid medication. The patient's medications have been reviewed. Medications added after the discussion of the risks and benefits of Coumadin with the patient. Note, 60 minutes spent on this patient with more than 50% of the time spent in direct patient care. Also, his old records have been reviewed; especially the admission of 05/[address] Kapoor, covering for Dr. Shelton. We will follow with you. The patient states he does not have a pest controller and he desires to follow up with me. My telephone is given to the patient and we will have the patient follow up with me as an outpatient. We will follow the patient during the inpatient stay. The patient most likely can be discharged in 48 hours and can titrate the Coumadin as an outpatient. Medical decision making is of high complexity in view of the patient congestive heart failure, cardiomyopathy, coronary artery disease and the patient's need for anticoagulation and discussion of the benefits and risks of anticoagulation with the patient. Thank you. DICTATING PHYSICIAN: LEXIE WILBURN M.D. [id number] PHY#: [id number] ID: [id number] JOB#: [id number] ACCT: [id number] cc:LEXIE WILBURN M.D. >
[2017-07-27] MEDS: ISOSORBIDE DINITRATE 20 MG TABLET PO SCH ×3 (06:46→21:53)
[2017-07-27] MEDS: HYDRALAZINE HCL 25 MG TABLET PO SCH ×3 (06:46→21:52)
[2017-07-27] MEDS: PATIROMER 8.4 GM SUSP PACKET PO SCH (06:48)
--- NOTE | 2017-07-27 09:55 | PDOC PROGRESS REPORT ---
Subjective Progress Note for:: 07/27/17 Subjective:: Patient is currently feeling much better Patient seen by the Dr. Yeboah and start the patient on a Coumadin per the chronic A. fib Denied any chest pain denied any shortness of the breath Reason For Visit: ACUTE ON CHRONIC SYSTOLIC CHF Physical Exam Vital Signs: Temp Pulse Resp BP Pulse Ox 98.2 F 72 16 124/70 99 07/27/17 08:08 07/27/17 08:08 07/27/17 08:08 07/27/17 08:08 07/27/17 08:08 Intake & Output 07/26/17 07/27/17 07/28/17 06:59 06:59 06:59 Intake Total 362 1288 Output Total 1075 1850 Balance -713 -562 Weight 84.8 kg General appearance: PRESENT: no acute distress, well-developed, well-nourished Head exam: PRESENT: atraumatic, normocephalic Eye exam: PRESENT: conjunctiva pink, EOMI, PERRLA. ABSENT: scleral icterus Ear exam: PRESENT: normal external ear exam Mouth exam: PRESENT: moist, tongue midline Neck exam: PRESENT: full ROM. ABSENT: carotid bruit, JVD, lymphadenopathy, thyromegaly Respiratory exam: PRESENT: clear to auscultation amelia Cardiovascular exam: PRESENT: RRR. ABSENT: diastolic murmur, rubs, systolic murmur Pulses: PRESENT: normal dorsalis pedis pul, +2 pedal pulses bilateral Vascular exam: PRESENT: normal capillary refill GI/Abdominal exam: PRESENT: normal bowel sounds, soft. ABSENT: distended, guarding, mass, organolmegaly, rebound, tenderness Rectal exam: PRESENT: deferred Extremities exam: ABSENT: pedal edema Musculoskeletal exam: PRESENT: ambulatory Neurological exam: PRESENT: alert, awake, oriented to person, oriented to place , oriented to time, oriented to situation, CN II-XII grossly intact. ABSENT: motor sensory deficit Psychiatric exam: PRESENT: appropriate affect, normal mood. ABSENT: homicidal ideation, suicidal ideation Skin exam: PRESENT: dry, intact, warm. ABSENT: cyanosis, rash Results Laboratory Results: 07/27/17 04:45 07/27/17 04:45 07/27/17 07/27/17 04:45 04:45 WBC 5.2 RBC 3.93 L Hgb 10.7 L Hct 33.1 L MCV 84 MCH 27.2 MCHC 32.3 RDW 15.9 H Plt Count 161 Sodium 145.2 H Potassium 3.8 Chloride 107 Carbon Dioxide 26 Anion Gap 12 BUN 54 H Creatinine 3.11 H Est GFR ( Amer) 24 L Est GFR (Non-Af Amer) 20 L Glucose 80 Calcium 10.5 H Total Bilirubin 0.6 AST 28 ALT 48 Alkaline Phosphatase 90 Total Protein 6.4 Albumin 3.5 Impressions: Chest X-Ray 07/25/17 07:57 IMPRESSION: Stable chronic pleural thickening bilaterally. Moderate cardiomegaly. Pacemaker Assessment & Plan - Diagnosis (1) Acute on chronic combined systolic (congestive) and diastolic (congestive) heart failure Is this a current diagnosis for this admission?: Yes Plan: DC the IV Lasix start on the p.o. Lasix (2) Acute kidney injury Is this a current diagnosis for this admission?: Yes Plan: DC the IV Lasix repeat the BMP in the morning (3) Anemia Qualifiers: Anemia type: due to chronic kidney disease Chronic kidney disease stage: stage 5, not on chronic dialysis Qualified Code(s): N18.5 - Chronic kidney disease, stage 5 Is this a current diagnosis for this admission?: Yes (4) CAD (coronary atherosclerotic disease) Qualifiers: Coronary Disease-Associated Artery/Lesion type: unspecified vessel or lesion type Associated angina: without angina Is this a current diagnosis for this admission?: Yes Plan: We consult the cardiology for further evaluations (5) CKD (chronic kidney disease) stage 4, GFR 15-29 ml/min Is this a current diagnosis for this admission?: Yes Plan: Assuming the kidney functions will DC the IV Lasix and continues to monitor (6) Chronic a-fib Is this a current diagnosis for this admission?: Yes Plan: Patient is on the Coumadin right now per the cardiology (7) Diabetes mellitus type 2 with complications Qualifiers: Diabetes mellitus superintendent marine oil terminal insulin use: without superintendent marine oil terminal use Qualified Code(s): E11.8 - Type 2 diabetes mellitus with unspecified complications Is this a current diagnosis for this admission?: Yes Plan: Currently all stable (8) Hypertension Qualifiers: Hypertension type: essential hypertension Qualified Code(s): I10 - Essential (primary) hypertension Is this a current diagnosis for this admission?: Yes Plan: Currently controlled - Time Time Spent with patient: 15-24 minutes Medications reviewed and adjusted accordingly: Yes Anticipated discharge: Home Within: Other - Inpatient Certification Medical Necessity: Need Close Monitoring Due to Risk of Patient Decompensation Post Hospital Care: D/C Vp & General Counsel Documentation - Plan Summary Plan Summary: Is currently stable
[2017-07-27] MEDS: GLIPIZIDE 5 MG TABLET PO SCH (10:36)
[2017-07-27] MEDS: SITAGLIPTIN PHOSPHATE 25 MG TABLET PO SCH (10:37)
[2017-07-27] MEDS: ASPIRIN 81 MG TABLET, ENT COATED PO SCH (10:37)
[2017-07-27] MEDS: FERROUS SULFATE 325 MG TABLET PO SCH (10:37)
[2017-07-27] MEDS: FUROSEMIDE 20 MG TABLET PO SCH ×2 (10:37→17:38)
[2017-07-27] MEDS: CARVEDILOL 6.25 MG TABLET PO SCH ×2 (10:37→21:51)
--- NOTE | 2017-07-27 21:39 | PROGRESS NOTE E ---
Progress Note NAME: SORIN PINEDA : 1940 AGE: 77Y DATE: 07/27/2017 ROOM: 316 SUBJECTIVE: The patient denies any chest pain or discomfort. There is no PND, orthopnea. There is no leg edema, which has resolved. The patient has no anginal symptoms. There is no firing of his AICD. The patient continues to be in atrial fibrillation with a controlled ventricular response. There is no bleeding on Coumadin and there are not TIA or CVA symptoms. OBJECTIVE: GENERAL: On examination the patient is mildly obese but well-groomed. VITAL SIGNS: He is afebrile with a temperature of 97.9 degrees Fahrenheit, pulse is 68 beats per minute, blood pressure 114/78, respirations are 16 per minute, O2 saturations are 100% on room air. HEENT: Head is atraumatic, normocephalic. Eyes: Pupils are equal, round and regular, reactive to light and accommodation. Extraocular movements are normal. There is no conjunctival pallor. There is no scleral icterus. ENT is negative. NECK: Supple. There is no JVD. There is no lymphadenopathy. There is no goiter. Carotids are equal. There is no bruit. Trachea is central. LUNGS: Clear to auscultation and percussion. There is no chest wall tenderness. HEART: S1, S2 is heard. S1 is variable intensity. There is no S3 gallop. There is no S4 gallop. There is a systolic murmur in the left sternal border and the apex. There is no rub. ABDOMEN: Soft, nontender. There is no hepatosplenomegaly. Bowel sounds are well heard. There are no tender areas or masses. EXTREMITIES: Femorals are slightly diminished. There are no femoral bruits. Leg pulses are diminished. There is no pedal edema. There is no cyanosis or clubbing. There is no DVT or cellulitis. There is no calf tenderness. CENTRAL NERVOUS SYSTEM: The patient is conscious, awake, alert and oriented x3 with no focal deficits. DIAGNOSTICS: The patient's ProTime is 14.0, INR is 1.03. The patient's sodium is 145.2, potassium has come down to 3.8, chloride is 107, CO2 is 23. The patient's BUN is 54, creatinine 3.11, and GFR is 24 mL which is stage 4 chronic kidney disease. The patient's calcium is 10.5. Liver function tests are normal. His glucose is 80. The patient's total protein is 6.4, albumin is 3.5. IMPRESSION: 1. CONGESTIVE HEART FAILURE, BIVENTRICULAR. AT PRESENT COMPENSATED. THERE IS SYSTOLIC HEART FAILURE. 2. CARDIOMYOPATHY WITH SEVERELY REDUCED LV EJECTION FRACTION. AT PRESENT STABLE. The patient on anti-cardiomyopathy medication. Note since the patient's renal status he cannot be on LISA inhibitors or ARB, but the patient is on hydralazine. 3. HYPERTENSION, WELL-CONTROLLED. 4. CORONARY ARTERY DISEASE, HISTORY OF MYOCARDIAL INFARCTION, HISTORY OF STENT IN UNKNOWN VESSEL, NO ANGINAL SYMPTOMS. 5. DIABETES MELLITUS TYPE 2, NONINSULIN DEPENDENT. 6. CHRONIC ATRIAL FIBRILLATION. At present the patient is on anticoagulation. Since his INR has not budged, we will increase the Coumadin to 5 mg p.o. at bedtime. 7. AUTOMATIC IMPLANTABLE CARDIOVERTER-DEFIBRILLATOR (AICD) PLACEMENT. No firing. RECOMMENDATIONS: The patient was given CHF teaching, also the importance of weighing himself daily and to report if there is a 2 pound weight gain in 2 days to call his attending physician or me. Also continue the patient's Coreg, atorvastatin, glipizide, Januvia, Coumadin, hydralazine, and isosorbide dinitrate. Also continue the patient's aspirin. TIME SPENT: Note 35 minutes spent on this patient with more than 50% of the time spent on direct patient care. His medications have been reviewed. CHF education done to the patient. We will follow with you. Medical decision making is of moderate complexity. DICTATING PHYSICIAN: LEXIE WILBURN M.D. [id number] PHY#: [id number] ID: [id number] JOB#: [id number] ACCT: [id number] cc: >
[2017-07-27] MEDS: ATORVASTATIN CALCIUM 40 MG TABLET PO SCH (21:51)
[2017-07-27] MEDS: WARFARIN SODIUM 5 MG TABLET PO SCH (21:52)
[2017-07-27] MEDS ORDERED: WARFARIN SODIUM 3 MG TABLET PO SCH (22:00)
[2017-07-28 04:00] LABS: APPEARANCE,URINE CLEAR; BILIRUBIN,URINE NEGATIVE (NEGATIVE); COLOR,URINE YELLOW; GLUCOSE, URINE NEGATIVE (NEGATIVE); KETONES,URINE NEGATIVE (NEGATIVE); LEUKOCYTE ESTERASE,URINE NEGATIVE (NEGATIVE); NITRITE,URINE NEGATIVE (NEGATIVE); PROTEIN,URINE NEGATIVE (NEGATIVE); URINE SPECIFIC GRAVITY 1.011; UROBILINOGEN,URINE NEGATIVE mg/dL (<2.0)
[2017-07-28] MEDS: ISOSORBIDE DINITRATE 20 MG TABLET PO SCH ×3 (05:41→21:30)
[2017-07-28] MEDS: HYDRALAZINE HCL 25 MG TABLET PO SCH ×3 (05:42→21:31)
[2017-07-28] MEDS: PATIROMER 8.4 GM SUSP PACKET PO SCH (05:43)
[2017-07-28 07:07] LABS: ANION GAP 14 (5-19); BLOOD UREA NITROGEN 51 mg/dL (7-20); CALCIUM 10.7 mg/dL (8.4-10.2); CARBON DIOXIDE 23 mmol/L (22-30); CHLORIDE 107 mmol/L (98-107); GLUCOSE 87 mg/dL (75-110); POTASSIUM 3.9 mmol/L (3.6-5.0); SODIUM 143.5 mmol/L (137-145)
[2017-07-28 10:04] LABS: INTERNATIONAL RATION (INR) 1.09; PROTHROMBIN TIME 14.7 SEC (11.4-15.4)
[2017-07-28] MEDS: FERROUS SULFATE 325 MG TABLET PO SCH (10:21)
[2017-07-28] MEDS: CARVEDILOL 6.25 MG TABLET PO SCH ×2 (10:21→21:30)
[2017-07-28] MEDS: FUROSEMIDE 20 MG TABLET PO SCH ×2 (10:21→18:48)
[2017-07-28] MEDS: SITAGLIPTIN PHOSPHATE 25 MG TABLET PO SCH (10:22)
[2017-07-28] MEDS: ASPIRIN 81 MG TABLET, ENT COATED PO SCH (10:22)
[2017-07-28] MEDS: GLIPIZIDE 5 MG TABLET PO SCH (10:22)
--- NOTE | 2017-07-28 13:35 | PROGRESS NOTE E ---
Progress Note NAME: SORIN PINEDA : 1940 AGE: 77Y DATE: 07/28/2017 ROOM: 316 SUBJECTIVE: Note that the patient has no chest pain or discomfort. He remains in atrial fibrillation with a controlled ventricular response. There is no anginal symptoms. There is no PND or orthopnea. There is no bleeding on Coumadin. There is no TIA or CVA symptoms. There is no pedal edema. There is no PND or orthopnea. The patient denies any palpitations. The patient is tolerating Coumadin. OBJECTIVE: GENERAL: On examination, the patient is mildly obese but well groomed, sitting up in the chair, in no acute distress. VITAL SIGNS: He is afebrile with a temperature of 98 degrees Fahrenheit. His pulse is 77 beats per minute, irregularly irregular. Blood pressure is 103/69. Respirations are 15 per minute. O2 sats are 98% on room air. HEENT: Head is atraumatic, normocephalic. Eyes - Pupils are equal, round, regular, reactive to light and accommodation. Extraocular movements are normal. There is no conjunctival pallor. There is no scleral icterus. ENT is negative. NECK: Supple. There is no JVD. There is no lymphadenopathy. There is no goiter. Carotids are equal. There is no bruit. Trachea is central. LUNGS: Clear to auscultation and percussion. There is no chest wall tenderness. HEART: S1 and S2 is heard; S1 is variable in intensity. There is no S3 gallop. There is no S4 gallop. There is a systolic murmur at the left sternal border and the apex. There is no rub. ABDOMEN: Soft, nontender. There is no hepatosplenomegaly. Bowel sounds are well heard. There are no tender areas or masses. EXTREMITIES: Femorals are slightly diminished. There are no femoral bruits. Leg pulses are diminished. There is no pedal edema. There is no cyanosis or clubbing. There is no DVT or cellulitis. There is no calf tenderness. CENTRAL NERVOUS SYSTEM: The patient is conscious, awake, alert, oriented x3, with no focal deficits. DIAGNOSTICS: The patient's sodium is 143.5, potassium 3.9, chloride is 107. The patient's CO2 is 23. The patient's BUN is 51, creatinine 3.24, and GFR is reduced at 23 mL/min, which is stage 4 chronic kidney disease. His glucose is 87, calcium is 10.7. The patient's pro time is 14.7, INR is 1.09. IMPRESSION: 1. CONGESTIVE HEART FAILURE, BIVENTRICULAR ON PRESENTATION, AT PRESENT COMPENSATED; THE PATIENT HAS CHRONIC SYSTOLIC HEART FAILURE. 2. CARDIOMYOPATHY WITH SEVERELY REDUCED LV EJECTION FRACTION, STABLE. THE PATIENT IS ON ANTI-CARDIOMYOPATHY MEDICATION. 3. HYPERTENSION, WELL CONTROLLED. 4. CORONARY ARTERY DISEASE, HISTORY OF MYOCARDIAL INFARCTION, HISTORY OF STENT IN UNKNOWN VESSEL; NO ANGINAL SYMPTOMS, NO EVIDENCE OF ACUTE CORONARY SYNDROME THIS ADMISSION. 5. DIABETES MELLITUS, TYPE 2, NONINSULIN DEPENDENT. 6. CHRONIC ATRIAL FIBRILLATION, AT PRESENT IS ON COUMADIN. AT PRESENT HE IS ON 5 MG P.O. AT BEDTIME; THIS WILL BE ADJUSTED BY DR. SHELTON. 7. AUTOMATIC IMPLANTABLE CARDIOVERTER DEFIBRILLATOR (AICD) PLACEMENT; NO FIRING OF THIS. RECOMMENDATIONS: Continue the patient on Coreg, atorvastatin, glipizide, Januvia, aspirin, hydralazine, and isosorbide. Continue the patient on Coumadin and titrate as necessary. Note, 30 minutes were spent on the patient, more than 50% of the time spent on direct patient care. His medications have been reviewed. I have looked at his pro time. We will continue the patient on Coumadin. I earlier discussed with Dr. Shelton, the attending, that I will be signing off the case since cardiac status is stable and to continue the Coumadin. Note that the patient's medications have been reviewed. Note, medical decision making is a moderate complexity now. I will sign off. The patient desires to follow up with me in the office and my phone number was given to the patient, will follow up the patient in the office. Thank you for inviting me to participate in the care of this patient. DICTATING PHYSICIAN: LEXIE WILBURN M.D. [id number] SARIKAY#: [id number] ID: [id number] JOB#: [id number] ACCT: [id number] cc: >
--- NOTE | 2017-07-28 20:16 | PDOC PROGRESS REPORT ---
Subjective Progress Note for:: 07/28/17 Subjective:: No chest pain or difficulty with breathing. Leg swelling improved. No nausea or vomiting. No abdominal pain. Reason For Visit: ACUTE ON CHRONIC SYSTOLIC CHF Physical Exam Vital Signs: Temp Pulse Resp BP Pulse Ox 97.9 F 75 20 131/62 H 97 07/28/17 19:28 07/28/17 19:28 07/28/17 19:28 07/28/17 19:28 07/28/17 19:28 Intake & Output 07/27/17 07/28/17 07/29/17 06:59 06:59 06:59 Intake Total 1288 1402 225 Output Total 1850 700 790 Balance -562 702 -565 Weight 83.3 kg General appearance: PRESENT: no acute distress, obese Head exam: PRESENT: atraumatic, normocephalic Mouth exam: PRESENT: moist Respiratory exam: PRESENT: clear to auscultation amelia Cardiovascular exam: PRESENT: RRR. ABSENT: diastolic murmur, rubs, systolic murmur Vascular exam: PRESENT: normal capillary refill. ABSENT: pallor GI/Abdominal exam: PRESENT: normal bowel sounds, soft. ABSENT: distended, guarding, mass, organolmegaly, rebound, tenderness Extremities exam: ABSENT: pedal edema Musculoskeletal exam: PRESENT: deformity - related to multiple joints involvement with arthritis Neurological exam: PRESENT: alert, awake, oriented to person, oriented to place , oriented to time, oriented to situation, CN II-XII grossly intact. ABSENT: motor sensory deficit Skin exam: PRESENT: dry, warm Results Laboratory Results: 07/27/17 04:45 07/28/17 05:37 07/28/17 07/28/17 03:40 05:37 Sodium 143.5 Potassium 3.9 Chloride 107 Carbon Dioxide 23 Anion Gap 14 BUN 51 H Creatinine 3.24 H Est GFR ( Amer) 23 L Est GFR (Non-Af Amer) 19 L Glucose 87 Calcium 10.7 H Urine Color YELLOW Urine Appearance CLEAR Urine pH 5.0 Ur Specific Belcher 1.011 Urine Protein NEGATIVE Urine Glucose (UA) NEGATIVE Urine Ketones NEGATIVE Urine Blood NEGATIVE Urine Nitrite NEGATIVE Ur Leukocyte Esterase NEGATIVE Urine WBC (Auto) 0 Urine RBC (Auto) 0 Impressions: Chest X-Ray 07/25/17 07:57 IMPRESSION: Stable chronic pleural thickening bilaterally. Moderate cardiomegaly. Pacemaker Assessment & Plan - Diagnosis (1) Acute on chronic combined systolic (congestive) and diastolic (congestive) heart failure Is this a current diagnosis for this admission?: Yes (2) Hypertension Qualifiers: Hypertension type: essential hypertension Qualified Code(s): I10 - Essential (primary) hypertension Is this a current diagnosis for this admission?: Yes (3) CAD (coronary atherosclerotic disease) Qualifiers: Coronary Disease-Associated Artery/Lesion type: unspecified vessel or lesion type Associated angina: without angina Is this a current diagnosis for this admission?: Yes (4) Old [place] (myocardial infarction) Is this a current diagnosis for this admission?: Yes (5) CKD (chronic kidney disease) stage 4, GFR 15-29 ml/min Is this a current diagnosis for this admission?: Yes (6) Diabetes mellitus type 2 with complications 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: 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 insulin use: without care home use Qualified Code(s): E11.8 - Type 2 diabetes mellitus with unspecified complications Is this a current diagnosis for this admission?: Yes (7) HLD (hyperlipidemia) Qualifiers: Hyperlipidemia type: pure hypercholesterolemia Qualified Code(s): E78.00 - Pure hypercholesterolemia, unspecified Is this a current diagnosis for this admission?: Yes (8) Osteoarthritis involving multiple joints on both sides of body Is this a current diagnosis for this admission?: Yes (9) Chronic a-fib Is this a current diagnosis for this admission?: Yes Plan: I discussed case with Dr Michaels regarding restarting patient on Coumadin therapy. Goal will be to keep INR in 2-3 range, more towards 2.0-2.5 range in view of his morbidities. - Time Time Spent with patient: 25-34 minutes Medications reviewed and adjusted accordingly: Yes Anticipated discharge: Home Within: within 24 hours - Inpatient Certification Based on my medical assessment, after consideration of the patient's comorbidities, presenting symptoms, or acuity I expect that the services needed warrant INPATIENT care.: Yes I certify that my determination is in accordance with my understanding of Medicare's requirements for reasonable and necessary INPATIENT services [42 CFR 412.3e].: Yes Medical Necessity: Need Close Monitoring Due to Risk of Patient Decompensation, Need For Continuous Telemetry Monitoring, Risk of Complication if Not Cared For in Hospital Post Hospital Care: D/C Possum Trapper Documentation - Plan Summary Plan Summary: Possible discharge home tomorrow. Renal indices not encouraging. Decrease Lasix to 20 mg p.o daily. Hold Vitamin D administration. Obtain 25(OH) Vitamin D level on outpatient. Emphasized fluid restrictions.
[2017-07-28] MEDS: WARFARIN SODIUM 5 MG TABLET PO SCH (21:30)
[2017-07-28] MEDS: ATORVASTATIN CALCIUM 40 MG TABLET PO SCH (21:30)
[2017-07-29] MEDS: ISOSORBIDE DINITRATE 20 MG TABLET PO SCH ×3 (05:48→21:55)
[2017-07-29] MEDS: PATIROMER 8.4 GM SUSP PACKET PO SCH (05:48)
[2017-07-29 05:49] LABS: ANION GAP 12 (5-19); BLOOD UREA NITROGEN 54 mg/dL (7-20); CALCIUM 10.6 mg/dL (8.4-10.2); CARBON DIOXIDE 25 mmol/L (22-30); CHLORIDE 108 mmol/L (98-107); GLUCOSE 88 mg/dL (75-110); POTASSIUM 3.8 mmol/L (3.6-5.0); SODIUM 144.5 mmol/L (137-145)
[2017-07-29] MEDS: HYDRALAZINE HCL 25 MG TABLET PO SCH ×3 (05:49→21:53)
[2017-07-29] MEDS: FERROUS SULFATE 325 MG TABLET PO SCH (09:12)
[2017-07-29] MEDS: SITAGLIPTIN PHOSPHATE 25 MG TABLET PO SCH (09:12)
[2017-07-29] MEDS: ASPIRIN 81 MG TABLET, ENT COATED PO SCH (09:12)
[2017-07-29] MEDS: FUROSEMIDE 20 MG TABLET PO SCH ×2 (09:13→17:24)
[2017-07-29] MEDS: GLIPIZIDE 5 MG TABLET PO SCH (09:13)
[2017-07-29] MEDS: CARVEDILOL 6.25 MG TABLET PO SCH ×2 (09:13→21:55)
[2017-07-29 10:24] LABS: INTERNATIONAL RATION (INR) 1.07; PROTHROMBIN TIME 14.4 SEC (11.4-15.4)
--- NOTE | 2017-07-29 19:32 | PDOC PROGRESS REPORT ---
Subjective Progress Note for:: 07/29/17 Subjective:: No chest pain or difficulty with breathing. No fever or chills. No abdominal pain, nausea or vomiting. Remain on Coumadin with subtherapeutic INR level. No abnormal bleeding. Reason For Visit: ACUTE ON CHRONIC SYSTOLIC CHF Physical Exam Vital Signs: Temp Pulse Resp BP Pulse Ox 98.2 F 88 22 H 96/69 L 98 07/29/17 15:10 07/29/17 15:10 07/29/17 15:10 07/29/17 15:10 07/29/17 15:10 Intake & Output 07/28/17 07/29/17 07/30/17 06:59 06:59 06:59 Intake Total 6728 861 3317 Output Total 700 1490 725 Balance 702 -825 484 Weight 83.3 kg 83.1 kg Physical Exam: General appearance: PRESENT: no acute distress, obese Head exam: PRESENT: atraumatic, normocephalic Mouth exam: PRESENT: moist Respiratory exam: PRESENT: clear to auscultation amelia Cardiovascular exam: PRESENT: RRR. ABSENT: diastolic murmur, rubs, systolic murmur Vascular exam: ABSENT: pallor GI/Abdominal exam: PRESENT: normal bowel sounds, soft. ABSENT: distended, guarding, mass, organomegaly, rebound, tenderness Extremities exam: ABSENT: pedal edema Musculoskeletal exam: PRESENT: deformity - related to multiple joints involvement with arthritis Neurological exam: PRESENT: alert, awake, oriented to person, oriented to place , oriented to time, oriented to situation, CN II-XII grossly intact. ABSENT: motor sensory deficit Skin exam: PRESENT: dry, warm Results Laboratory Results: 07/27/17 04:45 07/29/17 04:29 07/29/17 07/29/17 04:29 11:40 Sodium 144.5 Potassium 3.8 Chloride 108 H Carbon Dioxide 25 Anion Gap 12 BUN 54 H Creatinine 3.44 H Est GFR ( Amer) 21 L Est GFR (Non-Af Amer) 17 L Glucose 88 Calcium 10.6 H Stool Occult Blood NEGATIVE Impressions: Chest X-Ray 07/25/17 07:57 IMPRESSION: Stable chronic pleural thickening bilaterally. Moderate cardiomegaly. Pacemaker Assessment & Plan - Diagnosis (1) Acute on chronic combined systolic (congestive) and diastolic (congestive) heart failure Is this a current diagnosis for this admission?: Yes (2) Hypertension Qualifiers: Hypertension type: essential hypertension Qualified Code(s): I10 - Essential (primary) hypertension Is this a current diagnosis for this admission?: Yes (3) CAD (coronary atherosclerotic disease) Qualifiers: Coronary Disease-Associated Artery/Lesion type: unspecified vessel or lesion type Associated angina: without angina Is this a current diagnosis for this admission?: Yes (4) Old [place] (myocardial infarction) Is this a current diagnosis for this admission?: Yes (5) CKD (chronic kidney disease) stage 4, GFR 15-29 ml/min Is this a current diagnosis for this admission?: Yes (6) Diabetes mellitus type 2 with complications Qualifiers: Diabetes 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 Start on Eliquis 2.5 mg p.o bid for anticoagulation therapy. I discussed case with Dr. Michaels, international project manager. - Time Time Spent with patient: 25-34 minutes Medications reviewed and adjusted accordingly: Yes Anticipated discharge: Home Within: within 24 hours - Inpatient Certification Based on my medical assessment, after consideration of the patient's comorbidities, presenting symptoms, or acuity I expect that the services needed warrant INPATIENT care.: Yes I certify that my determination is in accordance with my understanding of Medicare's requirements for reasonable and necessary INPATIENT services [42 CFR 412.3e].: Yes Medical Necessity: Need Close Monitoring Due to Risk of Patient Decompensation, Need For Continuous Telemetry Monitoring, Risk of Complication if Not Cared For in Hospital Post Hospital Care: D/C Submarine Cable Equipment Technician Documentation - Plan Summary Plan Summary: Start on Eliquis to night with plan to transition home tomorrow. Patient will receive nursing education on Eliquis therapy.
[2017-07-29] MEDS ORDERED: APIXABAN 2.5 MG TABLET PO ONE (20:00)
[2017-07-29] MEDS: ATORVASTATIN CALCIUM 40 MG TABLET PO SCH (21:55)
[2017-07-30] MEDS: ISOSORBIDE DINITRATE 20 MG TABLET PO SCH (05:32)
[2017-07-30] MEDS: HYDRALAZINE HCL 25 MG TABLET PO SCH (05:32)
[2017-07-30] MEDS ORDERED: PATIROMER 8.4 GM SUSP PACKET PO ONE (05:55)
[2017-07-30] MEDS: PATIROMER 8.4 GM SUSP PACKET PO SCH (06:04)
[2017-07-30] MEDS ORDERED: APIXABAN 2.5 MG TABLET PO SCH (08:00)
[2017-07-30] MEDS: CARVEDILOL 6.25 MG TABLET PO SCH (09:47)
[2017-07-30] MEDS: SITAGLIPTIN PHOSPHATE 25 MG TABLET PO SCH (09:48)
[2017-07-30] MEDS: GLIPIZIDE 5 MG TABLET PO SCH (09:48)
[2017-07-30] MEDS: FUROSEMIDE 20 MG TABLET PO SCH (09:48)
[2017-07-30] MEDS: FERROUS SULFATE 325 MG TABLET PO SCH (09:48)
[2017-07-30] MEDS: ASPIRIN 81 MG TABLET, ENT COATED PO SCH (09:48)
[2017-07-30 10:36] LABS: INTERNATIONAL RATION (INR) 1.14; PROTHROMBIN TIME 15.2 SEC (11.4-15.4)
[2017-07-30 12:16] VITALS: BP 122/67
--- NOTE | 2017-07-31 17:19 | PDOC DISCHARGE SUMMARY ---
General - Admit/Disc Date/PCP Admission Date/Primary Care Provider: 07/25/17 10:50 Discharge Date: 07/30/17 - Discharge Diagnosis (1) Acute on chronic combined systolic (congestive) and diastolic (congestive) heart failure Is this a current diagnosis for this admission?: Yes (2) Hypertension Is this a current diagnosis for this admission?: Yes (3) CAD (coronary atherosclerotic disease) Is this a current diagnosis for this admission?: Yes (4) Old [place] (myocardial infarction) Is this a current diagnosis for this admission?: Yes (5) CKD (chronic kidney disease) stage 4, GFR 15-29 ml/min Is this a current diagnosis for this admission?: Yes (6) Diabetes mellitus type 2 with complications Is this a current diagnosis for this admission?: Yes (7) HLD (hyperlipidemia) Is this a current diagnosis for this admission?: Yes (8) Osteoarthritis involving multiple joints on both sides of body Is this a current diagnosis for this admission?: Yes (9) Chronic a-fib Is this a current diagnosis for this admission?: Yes - Additional Information Discharge Diet: Cardiac, Diabetic Discharge Activity: Activity As Tolerated, Balance Activity w/Rest, Weigh Daily Home Medications: Aspirin [Ecotrin 81 mg EC Tablet] 81 mg PO DAILY 07/25/17 Atorvastatin Calcium [Lipitor 40 mg Tablet] 40 mg PO QHS 07/25/17 Carvedilol [Coreg 6.25 mg Tablet] 6.25 mg PO Q12 07/25/17 Ergocalciferol (Vitamin D2) [Drisdol 50,000 unit (1.25MG) Capsule] 50,000 unit PO [id number] 07/25/17 Ferrous Sulfate [Feosol 325 mg Tablet] 325 mg PO DAILY 07/25/17 Furosemide [Lasix 20 mg Tablet] 20 mg PO DAILY 07/25/17 Glipizide [Glucotrol 5 mg Tablet] 2.5 mg PO DAILY 07/25/17 Hydralazine HCl [Apresoline 25 mg Tablet] 37.5 mg PO Q8 07/25/17 Linagliptin [Tradjenta] 5 mg PO DAILY 07/25/17 Patiromer Calcium Sorbitex [Veltassa] 8.4 gm PO DAILY 07/25/17 History of Present Illness Patient complains of: Worsening difficulty with breathing History of Present Illness: SORIN PINEDA is a 77 year old male known to my practice who presented to the ED with worsening shortness of breath over last couple of days. Patient admitted to some dietary indiscretion recently. He claimed compliance with his medication administration. He denied any chest pain, palpitation or coughing but admitted to leg swelling, PND and orthopnea. No fever or chills. His initial evaluation in the ED was remarkable for elevated blood pressure, tachypnea, tachycardia and bilateral leg swelling. His laboratory evaluation revealed significantly elevated NT-ProBNP over 15,000. His last echocardiogram on revealed LVEF about 25% with moderate diastolic dysfunction. He was initially managed with IV Lasix, Nitropaste and BiPAP support. He was advised hospitalization for further evaluation and management. is morbidities include combined HF, HTN, CAD s/p stent angioplasty, Pacemaker/defibrillator device, Hyperlipidemia, Diabetes mellitus type 2 with complications and CKD stage 4. Hospital Course Hospital Course: Patient presented with worsening shortness of breath with initial need for IV Furosemide and BiPAP support upon admission. His symptoms subsequently improved and he did very well on nasal cannula supplemental oxygen. He is currently off supplemental oxygen and maintain satisfactory oxygen saturation level. No chest pain or palpitation. Patient remain on total daily fluid restriction at 1500mL. I emphasized compliance with his medication and dietary and fluid restrictions. 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 He was started on Coumadin for a short period but due to monitoring and dietary burden it was decided to maintain him on Eliquis 2.5 mg p bid due to his renal disease. He bina be discharged home today with follow up appoint with Dr. Michaels and myself as instructed upon discharge. Physical Exam Vital Signs: Temp Pulse Resp BP Pulse Ox 98.5 F 74 16 107/63 97 07/30/17 03:12 07/30/17 03:12 07/30/17 03:12 07/30/17 03:12 07/30/17 03:12 Intake & Output 07/29/17 07/30/17 07/31/17 06:59 06:59 06:59 Intake Total 665 1419 Output Total 1490 1275 Balance -825 144 Weight 83.1 kg 83.3 kg Physical Exam: General appearance: PRESENT: no acute distress, obese Head exam: PRESENT: atraumatic, normocephalic Mouth exam: PRESENT: moist Respiratory exam: PRESENT: clear to auscultation amelia Cardiovascular exam: PRESENT: RRR. ABSENT: diastolic murmur, rubs, systolic murmur Vascular exam: ABSENT: pallor GI/Abdominal exam: PRESENT: normal bowel sounds, soft. ABSENT: distended, guarding, mass, organomegaly, rebound, tenderness Extremities exam: ABSENT: pedal edema Musculoskeletal exam: PRESENT: deformity - related to multiple joints involvement with arthritis Neurological exam: PRESENT: alert, awake, oriented to person, oriented to place , oriented to time, oriented to situation, CN II-XII grossly intact. ABSENT: motor sensory deficit Skin exam: PRESENT: dry, warm Results Laboratory Results: 07/27/17 04:45 07/29/17 04:29 07/29/17 11:40 Stool Occult Blood NEGATIVE Impressions: Chest X-Ray 07/25/17 07:57 IMPRESSION: Stable chronic pleural thickening bilaterally. Moderate cardiomegaly. Pacemaker Qualifiers - * PATIENT BEING DISCHARGED WITH ANY OF THE FOLLOWING DIAGNOSIS: No, Heart Failure HF Pt being discharged on ACEI for LVEF less than 40%?: No Reason(s) for not prescribing ACEI:: Medical Contraindication HF Pt being discharged on ARBS for LVEF less than 40%?: No Reason(s) for not prescribing ARBS:: Medical Contraindication HF Pt with Afib discharged with Warfarin?: No Reason(s) for not prescribing Warfarin:: Medical Contraindication - on Eliquis therapy HF Pt discharged on evidence-based Beta Stef:: Yes Plan Discharge Plan: Discharge home today. Follow up with Dr. Michaels and myself as instructed upon discharge.
[2017-08-08] MEDS ORDERED: ERGOCALCIFEROL (VITAMIN D2) 50000 UNIT (1.25 MG) CAPSULE PO SCH (10:00)
== END 2017-07-30 13:53 | disposition home or self-care (01) | DRG 291 ==
LOC: ER 07:23 → EH 10:50 → 3W 12:23
PROVIDERS: ADMIT Internal Medicine Geriatric Medicine; ATTEND Internal Medicine Geriatric Medicine
DX: I13.0 Hypertensive heart and chronic kidney disease with heart failure and stage 1 through stage 4 chronic kidney disease, or unspecified chronic kidney disease (principal); I50.43 Acute on chronic combined systolic (congestive) and diastolic (congestive) heart failure; N18.4 Chronic kidney disease, stage 4 (severe); N17.9 Acute kidney failure, unspecified; I48.2 Chronic atrial fibrillation; E11.22 Type 2 diabetes mellitus with diabetic chronic kidney disease; I25.10 Atherosclerotic heart disease of native coronary artery without angina pectoris; E78.00 Pure hypercholesterolemia, unspecified; I25.2 Old myocardial infarction; Z87.891 Personal history of nicotine dependence; Z79.84 Long term (current) use of oral hypoglycemic drugs; Z79.82 Long term (current) use of aspirin; Z79.899 Other long term (current) drug therapy; Z95.810 Presence of automatic (implantable) cardiac defibrillator; Z95.5 Presence of coronary angioplasty implant and graft
CPT/HCPCS: 36415; 71045; 80048; 80053; 80076; 81001; 82272; 82550; 82553; 82803; 82962; 83605; 83735; 83880; 84484; 85025; 85027; 85610; 93005; 93010; 94660; 96374; 99291; J1940; J3490

== ENCOUNTER → 2017-09-29 | Outpatient (CLI) | payer MEDICARE ==
[2017-09-29 08:47] LABS: ABSOLUTE EOSINOPHILS # (AUTO) 0.1 10^3/uL (0.0-0.6); ABSOLUTE LYMPHOCYTES (AUTO) 0.8 10^3/uL (0.5-4.7); ABSOLUTE MONOCYTES (AUTO) 0.6 10^3/uL (0.1-1.4); ABSOLUTE NEUT (AUTO) 2.6 10^3/uL (1.7-8.2); BASOPHILS % (AUTO) 0.7 % (0-2); EOSINOPHILS % (AUTO) 3.3 % (0-6); HEMOGLOBIN 11.6 g/dL (13.5-17.0); LYMPHOCYTES % (AUTO) 19.2 % (13-45); MEAN CORPUSCULAR HEMOGLOBIN 27.3 pg (27.0-33.4); MEAN CORPUSCULAR HGB CONC 32.1 g/dL (32.0-36.0); MEAN CORPUSCULAR VOLUME 85 fl (80-97); MONOCYTES % (AUTO) 13.7 % (3-13); PLATELET COUNT 165 10^3/uL (150-450); RED BLOOD COUNT 4.23 10^6/uL (4.35-5.55); RED CELL DISTRIBUTION WIDTH 16.9 % (11.5-14.0); SEGMENTED NEUTROPHILS % (AUTO) 63.1 % (42-78); TOTAL CELLS COUNTED % (AUTO) 100 %; WHITE BLOOD COUNT 4.1 10^3/uL (4.0-10.5)
[2017-09-29 12:03] LABS: ANION GAP 8 (5-19); BLOOD UREA NITROGEN 40 mg/dL (7-20); CALCIUM 10.5 mg/dL (8.4-10.2); CARBON DIOXIDE 28 mmol/L (22-30); CHLORIDE 111 mmol/L (98-107); GLUCOSE 95 mg/dL (75-110); POTASSIUM 4.9 mmol/L (3.6-5.0); SODIUM 147.3 mmol/L (137-145)
[2017-09-30 11:40] LABS: CREATININE URINE 92.4 mg/dL (Not Estab.); MICROALBUMIN URINE 209.2 ug/mL (Not Estab.)
== END ==
LOC: OD 07:49
PROVIDERS: ATTEND Internal Medicine Nephrology
DX: N18.4 Chronic kidney disease, stage 4 (severe) (principal); D50.9 Iron deficiency anemia, unspecified; E21.0 Primary hyperparathyroidism; R80.9 Proteinuria, unspecified
CPT/HCPCS: 36415; 80048; 82043; 82570; 82728; 83540; 83550; 85025

== ENCOUNTER → 2018-01-01 | Outpatient (CLI) | payer MEDICARE, MEDICAID ==
[2018-01-01 09:54] LABS: ABSOLUTE EOSINOPHILS # (AUTO) 0.2 10^3/uL (0.0-0.6); ABSOLUTE LYMPHOCYTES (AUTO) 0.8 10^3/uL (0.5-4.7); ABSOLUTE MONOCYTES (AUTO) 0.6 10^3/uL (0.1-1.4); ABSOLUTE NEUT (AUTO) 2.5 10^3/uL (1.7-8.2); APPEARANCE,URINE CLEAR; BILIRUBIN,URINE NEGATIVE (NEGATIVE); COLOR,URINE STRAW; EOSINOPHILS % (AUTO) 3.9 % (0-6); GLUCOSE, URINE NEGATIVE (NEGATIVE); HEMATOCRIT 37.7 % (37.9-51.0); HEMOGLOBIN 12.6 g/dL (13.5-17.0); KETONES,URINE NEGATIVE (NEGATIVE); LEUKOCYTE ESTERASE,URINE NEGATIVE (NEGATIVE); LYMPHOCYTES % (AUTO) 19.1 % (13-45); MEAN CORPUSCULAR HEMOGLOBIN 28.5 pg (27.0-33.4); MEAN CORPUSCULAR HGB CONC 33.3 g/dL (32.0-36.0); MEAN CORPUSCULAR VOLUME 86 fl (80-97); MONOCYTES % (AUTO) 14.1 % (3-13); NITRITE,URINE NEGATIVE (NEGATIVE); PLATELET COUNT 162 10^3/uL (150-450); PROTEIN,URINE 30 mg/dL (NEGATIVE); RED CELL DISTRIBUTION WIDTH 15.9 % (11.5-14.0); SEGMENTED NEUTROPHILS % (AUTO) 61.9 % (42-78); TOTAL CELLS COUNTED % (AUTO) 100 %; URINE SPECIFIC GRAVITY 1.011; UROBILINOGEN,URINE NEGATIVE mg/dL (<2.0)
[2018-01-01 10:04] LABS: ALBUMIN 3.9 g/dL (3.5-5.0); ANION GAP 11 (5-19); BLOOD UREA NITROGEN 47 mg/dL (7-20); CALCIUM 10.8 mg/dL (8.4-10.2); CARBON DIOXIDE 27 mmol/L (22-30); CHLORIDE 108 mmol/L (98-107); GLUCOSE 86 mg/dL (75-110); IRON(TIBC) 39.3 ug/dL (49-181); PHOSPHORUS 3.7 mg/dL (2.5-4.5); POTASSIUM 5.4 mmol/L (3.6-5.0); SODIUM 146.4 mmol/L (137-145)
[2018-01-02 10:38] LABS: MICROALBUMIN URINE 283.5 ug/mL (Not Estab.)
== END ==
LOC: OD 09:08
PROVIDERS: ATTEND Internal Medicine Nephrology
DX: N18.4 Chronic kidney disease, stage 4 (severe) (principal); D50.9 Iron deficiency anemia, unspecified; E21.0 Primary hyperparathyroidism; R80.9 Proteinuria, unspecified
CPT/HCPCS: 36415; 80048; 81001; 82040; 82043; 82306; 82570; 82728; 83540; 83550; 83970; 84100; 85025

== ENCOUNTER → 2018-04-06 | Outpatient (CLI) | payer MEDICARE, MEDICAID ==
[2018-04-06 08:46] LABS: ABSOLUTE EOSINOPHILS # (AUTO) 0.3 10^3/uL (0.0-0.6); ABSOLUTE LYMPHOCYTES (AUTO) 0.6 10^3/uL (0.5-4.7); ABSOLUTE MONOCYTES (AUTO) 0.5 10^3/uL (0.1-1.4); ABSOLUTE NEUT (AUTO) 3.2 10^3/uL (1.7-8.2); BASOPHILS % (AUTO) 0.6 % (0-2); EOSINOPHILS % (AUTO) 5.5 % (0-6); HEMATOCRIT 39.1 % (37.9-51.0); HEMOGLOBIN 12.7 g/dL (13.5-17.0); LYMPHOCYTES % (AUTO) 12.5 % (13-45); MEAN CORPUSCULAR HEMOGLOBIN 28.1 pg (27.0-33.4); MEAN CORPUSCULAR HGB CONC 32.5 g/dL (32.0-36.0); MEAN CORPUSCULAR VOLUME 87 fl (80-97); MONOCYTES % (AUTO) 11.5 % (3-13); PLATELET COUNT 175 10^3/uL (150-450); RED BLOOD COUNT 4.52 10^6/uL (4.35-5.55); RED CELL DISTRIBUTION WIDTH 16.6 % (11.5-14.0); SEGMENTED NEUTROPHILS % (AUTO) 69.9 % (42-78); TOTAL CELLS COUNTED % (AUTO) 100 %; WHITE BLOOD COUNT 4.6 10^3/uL (4.0-10.5)
[2018-04-06 09:14] LABS: ANION GAP 9 (5-19); BLOOD UREA NITROGEN 41 mg/dL (7-20); CALCIUM 10.8 mg/dL (8.4-10.2); CARBON DIOXIDE 28 mmol/L (22-30); CHLORIDE 111 mmol/L (98-107); GLUCOSE 112 mg/dL (75-110); POTASSIUM 5.1 mmol/L (3.6-5.0)
== END ==
LOC: OD 08:08
PROVIDERS: ATTEND Internal Medicine Nephrology
DX: I12.9 Hypertensive chronic kidney disease with stage 1 through stage 4 chronic kidney disease, or unspecified chronic kidney disease (principal); N18.4 Chronic kidney disease, stage 4 (severe); E87.5 Hyperkalemia
CPT/HCPCS: 36415; 80048; 83970; 85025

== ENCOUNTER 2018-05-07 06:54 | Emergency (ER) | payer MEDICARE, MEDICAID ==
[2018-05-07] MEDS ORDERED: METHYLPREDNISOLONE INJ 125 MG/2 ML SDV IV ONE ×2 (07:32→08:51)
[2018-05-07] MEDS ORDERED: DIPHENHYDRAMINE HCL 50 MG/ML VIAL IV ONE (07:32)
[2018-05-07 07:49] LABS: ABSOLUTE EOSINOPHILS # (AUTO) 0.2 10^3/uL (0.0-0.6); ABSOLUTE LYMPHOCYTES (AUTO) 0.6 10^3/uL (0.5-4.7); ABSOLUTE MONOCYTES (AUTO) 0.5 10^3/uL (0.1-1.4); ABSOLUTE NEUT (AUTO) 4.2 10^3/uL (1.7-8.2); BASOPHILS % (AUTO) 0.5 % (0-2); EOSINOPHILS % (AUTO) 4.5 % (0-6); HEMATOCRIT 40.9 % (37.9-51.0); HEMOGLOBIN 13.3 g/dL (13.5-17.0); LYMPHOCYTES % (AUTO) 10.2 % (13-45); MEAN CORPUSCULAR HEMOGLOBIN 28.6 pg (27.0-33.4); MEAN CORPUSCULAR HGB CONC 32.5 g/dL (32.0-36.0); MEAN CORPUSCULAR VOLUME 88 fl (80-97); MONOCYTES % (AUTO) 8.6 % (3-13); PLATELET COUNT 183 10^3/uL (150-450); RED BLOOD COUNT 4.65 10^6/uL (4.35-5.55); RED CELL DISTRIBUTION WIDTH 16.6 % (11.5-14.0); SEGMENTED NEUTROPHILS % (AUTO) 76.2 % (42-78); TOTAL CELLS COUNTED % (AUTO) 100 %; WHITE BLOOD COUNT 5.5 10^3/uL (4.0-10.5)
[2018-05-07 08:08] LABS: ALANINE AMINOTRANSFERASE 36 U/L (21-72); ALBUMIN 4.2 g/dL (3.5-5.0); ALKALINE PHOSPHATASE 119 U/L (38-126); ANION GAP 12 (5-19); ASPARTATE AMINO TRANSFERASE 33 U/L (17-59); BILIRUBIN,DIRECT 0.2 mg/dL (0.0-0.4); BILIRUBIN,TOTAL 0.9 mg/dL (0.2-1.3); BLOOD UREA NITROGEN 49 mg/dL (7-20); CALCIUM 11.2 mg/dL (8.4-10.2); CARBON DIOXIDE 25 mmol/L (22-30); CHLORIDE 111 mmol/L (98-107); CREATINE KINASE 60 U/L (55-170); GLUCOSE 145 mg/dL (75-110); POTASSIUM 4.1 mmol/L (3.6-5.0); SODIUM 147.9 mmol/L (137-145); TOTAL PROTEIN 7.1 g/dL (6.3-8.2)
--- NOTE | 2018-05-07 08:17 | RADIOLOGY REPORT (SQ) ---
EXAM DESCRIPTION: CHEST SINGLE VIEW COMPLETED DATE/TIME: 05/07/2018 7:51 am REASON FOR STUDY: SOB COMPARISON: 05/27/2017, 05/26/2017 chest films EXAM PARAMETERS: NUMBER OF VIEWS: One view. TECHNIQUE: Single frontal radiographic view of the chest acquired. RADIATION DOSE: NA LIMITATIONS: None. FINDINGS: LUNGS AND PLEURA: Persistent right lower lobe consolidation atelectasis versus pneumonia Persistent trace bilateral pleural effusions No pneumothorax MEDIASTINUM AND HILAR STRUCTURES: No masses. Contour normal. HEART AND VASCULAR STRUCTURES: Stable marked cardiomegaly BONES: Old healed bilateral rib fractures HARDWARE: Left-sided dual lead pacemaker OTHER: No other significant finding. IMPRESSION: No change in patchy right retrocardiac airspace disease and trace bilateral pleural effu sions. TECHNICAL DOCUMENTATION: JOB ID: [id number] [employer]- All Rights Reserved Reading location - IP/workstation name: [email or web address]
[2018-05-07 08:31] LABS: CREATINE KINASE MB 1.78 ng/mL (<4.55)
[2018-05-07 08:34] LABS: TROPONIN I 0.303 ng/mL
[2018-05-07] MEDS ORDERED: IPRATROPIUM/ALBUTEROL 0.5-2.5 MG/3 ML AMPUL NEB ONE ×2 (08:51→12:42)
[2018-05-07 10:22] LABS: APPEARANCE,URINE CLEAR; BILIRUBIN,URINE NEGATIVE (NEGATIVE); COLOR,URINE STRAW; GLUCOSE, URINE NEGATIVE (NEGATIVE); KETONES,URINE NEGATIVE (NEGATIVE); LEUKOCYTE ESTERASE,URINE NEGATIVE (NEGATIVE); NITRITE,URINE NEGATIVE (NEGATIVE); PROTEIN,URINE 100 mg/dL (NEGATIVE); URINE SPECIFIC GRAVITY 1.011; UROBILINOGEN,URINE NEGATIVE mg/dL (<2.0)
[2018-05-07] MEDS ORDERED: ALBUTEROL SULFATE 0.083% NEB 2.5 MG/3 ML AMPUL NEB ONE (11:03)
[2018-05-07 13:46] LABS: CREATINE KINASE MB 1.83 ng/mL (<4.55); TROPONIN I 0.248 ng/mL
[2018-05-07] MEDS ORDERED: ALBUTEROL SULFATE HFA (90 MCG/PUFF) 8 GM MDI (1 MDI/ER DISP) IH ONE (15:59)
[2018-05-07 16:13] VITALS: BP 148/88
--- NOTE | 2018-05-07 22:14 | EKG REPORT ---
SEVERITY:- ABNORMAL ECG - ATRIAL FIBRILLATION, V-RATE 80-117 BORDERLINE LEFT AXIS DEVIATION NONSPECIFIC T ABNORMALITIES, ANT-LAT LEADS BORDERLINE PROLONGED QT INTERVAL : Confirmed by: Enrique Sierra 07-May-2018 22:14:12
--- NOTE | 2018-06-11 10:34 | ER Document Report ---
Entered by MAHENDRA LEON SCRIBE 05/07/18 0748 Acting as scribe for:TIAGO KOO MD ED General - General Chief Complaint: Shortness Of Breath Stated Complaint: SHORTNESS OF BREATH Time Seen by Provider: 05/07/18 07:22 Primary Care Provider: HIMA SHELTON MD [Primary Care Provider] - Follow up tomorrow Mode of Arrival: Ambulatory Information source: Patient Notes: Patient is a 78 year old male with CHF, COPD, hypercholesteoremia, type 2 diabetes, chronic kidney disease presents to the emergency department complaining of shortness of breath onset yesterday. Patient states "there may be fluid in there". He reports a chronic history of swelling to the lower extremities. TRAVEL OUTSIDE OF THE [place] IN LAST 30 DAYS: No - Related Data Allergies/Adverse Reactions: No Known Allergies Allergy (Verified 05/07/18 07:23) Past Medical History - General Information source: Patient - Social History Smoking Status: Former Smoker Cigarette use (# per day): No Chew tobacco use (# tins/day): No Frequency of alcohol use: None Drug Abuse: None Family History: Reviewed & Not Pertinent Patient has suicidal ideation: No Patient has homicidal ideation: No - Past Medical History Cardiac Medical History: Reports: Hx Congestive Heart Failure, Hx Coronary Artery Disease, Hx Heart Attack, Hx Hypercholesterolemia Endocrine Medical History: Reports: Hx Diabetes Mellitus Type 2 - Borderline Renal/ Medical History: Reports: Hx End Stage Renal Disease - stage 4 Past Surgical History: Reports: Hx Cardiac Surgery - pacemaker/defibrillator, Hx Coronary Stent, Hx Internal Defibrillator, Hx Orthopedic Surgery - Right clavicle fracture repair, Hx Pacemaker, Other - Head injury requiring metal plate in his skull Review of Systems - Review of Systems Constitutional: No symptoms reported EENT: No symptoms reported Cardiovascular: No symptoms reported Respiratory: See HPI, Short of breath Gastrointestinal: No symptoms reported Genitourinary: No symptoms reported Male Genitourinary: No symptoms reported Musculoskeletal: No symptoms reported Skin: No symptoms reported Hematologic/Lymphatic: No symptoms reported Neurological/Psychological: No symptoms reported -: Yes All other systems reviewed and negative Physical Exam - Vital signs Vitals: Temp Pulse Resp BP Pulse Ox 97.9 F 90 20 146/104 H 95 05/07/18 07:12 05/07/18 07:12 05/07/18 07:12 05/07/18 07:12 05/07/18 07:12 - Notes Notes: GENERAL: Alert, interacts well. No acute distress. HEAD: Normocephalic, atraumatic. EYES: Pupils equal, round, and reactive to light. Extraocular movements intact. ENT: Oral mucosa moist, tongue midline. NECK: Full range of motion. Supple. Trachea midline. LUNGS: Tachypneic. 94% on room air. Crackles bilaterally. No respiratory distress. HEART: Irregularly irregular. No murmurs, gallops, or rubs. ABDOMEN: Soft, obese, non-tender. Non-distended. Bowel sounds present in all 4 quadrants. No guarding, rigidity, or rebound. EXTREMITIES: Moves all 4 extremities spontaneously. 2+ pitting edema to the BLE, patient states this is chronic. NEUROLOGICAL: Alert and oriented x3. Normal speech. PSYCH: Normal affect, normal mood. SKIN: Warm, dry, normal turgor. No rashes or lesions noted. Course - Re-evaluation Re-evalutation: 05/07/18 11:03 The patient's O2 saturation is 93% on room air. He was never placed on nasal cannula oxygen was ordered. He does report that his breathing feels better after the DuoNeb treatment he received a little while ago. We will give him another albuterol treatment and recheck him in C. It appears this is not going to be a congestive heart failure episode. He does have an elevated troponin 0.303 which is a little higher than his baseline which is usually about 0.120- 0.148 05/07/18 15:14 The patient's blood pressure started trending up, this is probably a combination of not getting his 2 PM hydralazine dose which he will receive now. Also the albuterol treatments he was getting. A repeat troponin was lower than the initial troponin, and his breathing did improve with nebulizer treatments, so cardiac cause of his shortness of breath is unlikely. The patient does take Eliquis for his atrial fibrillation, so PE is also an unlikely diagnosis. 05/07/18 16:04 At this time the patient has a pulse ox of 94-95% on room air. He does seem a little tachypneic, but states his breathing feels fine to him. He will be discharged home with an albuterol inhaler, the nurse will give him instructions on how to use it, and he will follow-up with Dr. Shelton in the office in the morning. He was counseled about returning to the emergency room if anything changes, or the inhaler does not seem to help with shortness of breath this evening. - Vital Signs Vital signs: Temp Pulse Resp BP Pulse Ox 97.9 F 90 26 H 182/96 H 91 L 05/07/18 07:12 05/07/18 07:12 05/07/18 14:11 05/07/18 14:11 05/07/18 14:11 - Laboratory Result Diagrams: 05/07/18 07:37 05/07/18 07:37 Laboratory results interpreted by me: 05/07/18 05/07/18 05/07/18 07:37 07:37 07:37 Hgb 13.3 L RDW 16.6 H Lymphocytes % 10.2 L Sodium 147.9 H Chloride 111 H BUN 49 H Creatinine 3.21 H Est GFR ( Amer) 23 L Est GFR (Non-Af Amer) 19 L Glucose 145 H Calcium 11.2 H NT-Pro-B Natriuret Pep 72652 H Urine Protein Urine Blood 05/07/18 10:04 Hgb RDW Lymphocytes % Sodium Chloride BUN Creatinine Est GFR ( Amer) Est GFR (Non-Af Amer) Glucose Calcium NT-Pro-B Natriuret Pep Urine Protein 100 H Urine Blood SMALL H - Diagnostic Test Radiology reviewed: Image reviewed, Reports reviewed - Chest x-ray shows a persistent right retrocardiac airspace disease. Trace bilateral pleural effusions. - EKG Interpretation by Me EKG shows normal: [place], QRS Complexes. abnormal: Intervals - Nonspecific an terior lateral T abnormalities borderline prolonged QT interval, ST-T Waves Rate: Normal - 95 Rhythm: A.Fib [place]/QRS: Left axis deviation When compared to previous EKG there are: No significant change - Consults Dr. Shelton Time consulted: 15:27 Consulted provider: follow-up in office - Agrees with discharge the patient with an albuterol inhaler, and will follow up in the office tomorrow morning. Discharge - Discharge Clinical Impression: Shortness of breath, CKD (chronic kidney disease) stage 4, GFR 15-29 ml/min, Chronic a-fib Reactive airway disease Qualifiers: Asthma severity: mild Asthma persistence: unspecified Qualified Code(s): J45.9 09 - Unspecified asthma, uncomplicated Hypertension Qualifiers: Hypertension type: essential hypertension Qualified Code(s): I10 - Essential (primary) hypertension Condition: Stable Disposition: HOME, SELF-CARE Additional Instructions: Reactive Airway Disease You have "reactive airway disease." This means that your bronchial tubes constrict (narrow) or secrete extra mucous as a reaction to something that irritates them. The airway's reaction can cause shortness of breath, wheezing, or coughing. With reactive airway disease, your lungs can react to respiratory infections, allergic reactions, or inhaled dust, smoke, chemicals, or even cold air. Asthma is one type of reactive airway disease. Emergency treatment of bronchospasm may include adrenaline shots or bronchodilator aerosol. If we used these medicines to treat you, you may feel lightheaded and have a rapid pulse for an hour or two. Rest and get plenty of fluids. At home, we'll treat you with a bronchodilator inhaler. Antibiotics and corticosteroids may be required for some patients. Until you recover, avoid chemical fumes, dusts, pollens, and exercising in very cold or dry air. If you smoke, stop now!! If you develop a fever, increased wheezing, chest pain, or severe shortness of breath, you should contact your doctor immediately. Your evaluation today does not suggest this is due to congestive heart failure. You appear to have some wheezing and shortness of breath which may be due to a viral respiratory infection. You will be discharged with an albuterol inhaler to use every 4 hours if needed, which will work much like the breathing treatments you did today. Follow-up with Dr. Shelton in the office tomorrow morning for recheck. RETURN TO THE EMERGENCY ROOM IF ANY NEW OR WORSENING SYMPTOMS. Referrals: HIMA SHELTON MD [Primary Care Provider] - Follow up tomorrow Joni Attestation: 05/07/18 07:53 I personally performed the services described in the documentation, reviewed and edited the documentation which was dictated to the scribe in my presence, and it accurately records my words and actions. I personally performed the services described in the documentation, reviewed and edited the documentation which was dictated to the scribe in my presence, and it accurately records my words and actions.
== END 2018-05-07 16:27 | disposition home or self-care (01) ==
LOC: ER 06:54
DX: R06.02 Shortness of breath (principal); J45.909 Unspecified asthma, uncomplicated; I13.0 Hypertensive heart and chronic kidney disease with heart failure and stage 1 through stage 4 chronic kidney disease, or unspecified chronic kidney disease; N18.4 Chronic kidney disease, stage 4 (severe); I50.9 Heart failure, unspecified; I25.10 Atherosclerotic heart disease of native coronary artery without angina pectoris; E78.00 Pure hypercholesterolemia, unspecified; Z95.810 Presence of automatic (implantable) cardiac defibrillator; Z79.02 Long term (current) use of antithrombotics/antiplatelets; Z86.711 Personal history of pulmonary embolism; I25.2 Old myocardial infarction
CPT/HCPCS: 93005; 94640 ×2; 99285; 96374; 36415; 82553; 82550; 83735; 85025; 80053; 81001; 84484; 83880; 71045; 93010; J2930; A9270 ×2; J3490; J7620

== ENCOUNTER → 2018-07-13 | Outpatient (CLI) | payer MEDICARE, MEDICAID ==
[2018-07-13 09:31] LABS: ABSOLUTE EOSINOPHILS # (AUTO) 0.2 10^3/uL (0.0-0.6); ABSOLUTE LYMPHOCYTES (AUTO) 0.7 10^3/uL (0.5-4.7); ABSOLUTE MONOCYTES (AUTO) 0.6 10^3/uL (0.1-1.4); ABSOLUTE NEUT (AUTO) 2.6 10^3/uL (1.7-8.2); EOSINOPHILS % (AUTO) 4.5 % (0-6); HEMATOCRIT 39.2 % (37.9-51.0); HEMOGLOBIN 12.6 g/dL (13.5-17.0); LYMPHOCYTES % (AUTO) 16.5 % (13-45); MEAN CORPUSCULAR HEMOGLOBIN 27.6 pg (27.0-33.4); MEAN CORPUSCULAR HGB CONC 32.1 g/dL (32.0-36.0); MEAN CORPUSCULAR VOLUME 86 fl (80-97); MONOCYTES % (AUTO) 13.7 % (3-13); PLATELET COUNT 165 10^3/uL (150-450); RED BLOOD COUNT 4.56 10^6/uL (4.35-5.55); RED CELL DISTRIBUTION WIDTH 15.8 % (11.5-14.0); SEGMENTED NEUTROPHILS % (AUTO) 64.3 % (42-78); TOTAL CELLS COUNTED % (AUTO) 100 %
[2018-07-13 09:35] LABS: APPEARANCE,URINE CLEAR; BILIRUBIN,URINE NEGATIVE (NEGATIVE); COLOR,URINE YELLOW; GLUCOSE, URINE NEGATIVE (NEGATIVE); KETONES,URINE NEGATIVE (NEGATIVE); LEUKOCYTE ESTERASE,URINE NEGATIVE (NEGATIVE); NITRITE,URINE NEGATIVE (NEGATIVE); PROTEIN,URINE 100 mg/dL (NEGATIVE); URINE SPECIFIC GRAVITY 1.012; UROBILINOGEN,URINE NEGATIVE mg/dL (<2.0)
[2018-07-13 09:52] LABS: ALBUMIN 3.8 g/dL (3.5-5.0); ANION GAP 12 (5-19); BLOOD UREA NITROGEN 53 mg/dL (7-20); CALCIUM 11.4 mg/dL (8.4-10.2); CARBON DIOXIDE 27 mmol/L (22-30); CHLORIDE 109 mmol/L (98-107); GLUCOSE 100 mg/dL (75-110); PHOSPHORUS 3.7 mg/dL (2.5-4.5); POTASSIUM 4.2 mmol/L (3.6-5.0)
[2018-07-14 13:37] LABS: CREATININE URINE 103.1 mg/dL (Not Estab.); MICROALBUMIN URINE 302.2 ug/mL (Not Estab.)
== END ==
LOC: OD 08:44
PROVIDERS: ATTEND Internal Medicine Nephrology
DX: I12.9 Hypertensive chronic kidney disease with stage 1 through stage 4 chronic kidney disease, or unspecified chronic kidney disease (principal); N18.4 Chronic kidney disease, stage 4 (severe); D63.1 Anemia in chronic kidney disease
CPT/HCPCS: 36415; 80069; 81001; 82043; 82306; 82570; 83970; 85025

== ENCOUNTER → 2018-07-16 | Outpatient (CLI) | payer MEDICARE, MEDICAID ==
[2018-07-16 10:00] LABS: ANION GAP 9 (5-19); BLOOD UREA NITROGEN 57 mg/dL (7-20); CALCIUM 10.7 mg/dL (8.4-10.2); CARBON DIOXIDE 27 mmol/L (22-30); CHLORIDE 111 mmol/L (98-107); GLUCOSE 90 mg/dL (75-110); POTASSIUM 4.3 mmol/L (3.6-5.0); SODIUM 147.4 mmol/L (137-145)
== END ==
LOC: OD 08:25
PROVIDERS: ATTEND Internal Medicine Nephrology
DX: E87.0 Hyperosmolality and hypernatremia (principal)
CPT/HCPCS: 36415; 80048

== ENCOUNTER 2018-07-20 15:05 | Observation (INO) | payer MEDICARE, MEDICAID ==
--- NOTE | 2018-07-20 15:47 | ER Document Report ---
ED Medical Screen (RME) - General Chief Complaint: Hand Injury Stated Complaint: SWOLLEN HAND Time Seen by Provider: 07/20/18 15:44 Primary Care Provider: PRAVEENA BARROSO MD [Primary Care Provider] - Follow up as needed Mode of Arrival: Ambulatory Information source: Patient Notes: 78-year-old male presented to ED for pain swelling redness warmth to his right hand. He states that he was putting an air conditioner into the window about 3 or 4 days ago when the hand started swelling a little bit and he used alcohol and hot water in the hand is gotten much larger and more painful. His hand is very edematous red and warm to the touch. Patient has a history of diabetes blood pressure cholesterol CHF kidney disease has a pacemaker defibrillator right clavicle repair and has had a [place] in the past. I have greeted and performed a rapid initial assessment of this patient. A comprehensive ED assessment and evaluation of the patient, analysis of test results and completion of medical decision making process will be conducted by an additional ED providers. Dictation of this chart was performed using voice recognition software; therefore, there may be some unintended grammatical errors. TRAVEL OUTSIDE OF THE [place] IN LAST 30 DAYS: No - Related Data Allergies/Adverse Reactions: No Known Allergies Allergy (Verified 07/20/18 15:07) Past Medical History - Social History Frequency of alcohol use: None Drug Abuse: None - Past Medical History Cardiac Medical History: Reports: Hx Congestive Heart Failure, Hx Coronary Artery Disease, Hx Heart Attack, Hx Hypercholesterolemia Endocrine Medical History: Reports: Hx Diabetes Mellitus Type 2 - Borderline Renal/ Medical History: Reports: Hx End Stage Renal Disease - stage 4. Denies: Hx Peritoneal Dialysis Past Surgical History: Reports: Hx Cardiac Surgery - pacemaker/defibrillator, Hx Coronary Stent, Hx Internal Defibrillator, Hx Orthopedic Surgery - Right clavicle fracture repair, Hx Pacemaker, Other - Head injury requiring metal plate in his skull - Immunizations History of Influenza Vaccine for 12/2016 - 05/2017 Season: Yes Physical Exam - Vital signs Vitals: Temp Pulse Resp BP Pulse Ox 98.4 F 82 16 175/92 H 97 07/20/18 15:15 07/20/18 15:15 07/20/18 15:15 07/20/18 15:15 07/20/18 15:15 Course - Vital Signs Vital signs: Temp Pulse Resp BP Pulse Ox 98.4 F 82 16 175/92 H 97 07/20/18 15:15 07/20/18 15:15 07/20/18 15:15 07/20/18 15:15 07/20/18 15:15 Doctor's Discharge - Discharge Referrals: PRAVEENA BARROSO MD [Primary Care Provider] - Follow up as needed
[2018-07-20 16:17] LABS: ABSOLUTE EOSINOPHILS # (AUTO) 0.1 10^3/uL (0.0-0.6); ABSOLUTE LYMPHOCYTES (AUTO) 0.5 10^3/uL (0.5-4.7); ABSOLUTE MONOCYTES (AUTO) 0.8 10^3/uL (0.1-1.4); ABSOLUTE NEUT (AUTO) 4.2 10^3/uL (1.7-8.2); BASOPHILS % (AUTO) 0.9 % (0-2); EOSINOPHILS % (AUTO) 1.8 % (0-6); HEMATOCRIT 38.2 % (37.9-51.0); HEMOGLOBIN 12.4 g/dL (13.5-17.0); LYMPHOCYTES % (AUTO) 9.2 % (13-45); MEAN CORPUSCULAR HEMOGLOBIN 27.8 pg (27.0-33.4); MEAN CORPUSCULAR HGB CONC 32.4 g/dL (32.0-36.0); MEAN CORPUSCULAR VOLUME 86 fl (80-97); PLATELET COUNT 149 10^3/uL (150-450); RED BLOOD COUNT 4.46 10^6/uL (4.35-5.55); RED CELL DISTRIBUTION WIDTH 15.8 % (11.5-14.0); SEGMENTED NEUTROPHILS % (AUTO) 74.1 % (42-78); TOTAL CELLS COUNTED % (AUTO) 100 %; WHITE BLOOD COUNT 5.7 10^3/uL (4.0-10.5)
[2018-07-20 16:23] LABS: ALANINE AMINOTRANSFERASE 21 U/L (21-72); ALBUMIN 3.9 g/dL (3.5-5.0); ALKALINE PHOSPHATASE 101 U/L (38-126); ANION GAP 10 (5-19); ASPARTATE AMINO TRANSFERASE 20 U/L (17-59); BILIRUBIN,DIRECT 0.3 mg/dL (0.0-0.4); BLOOD UREA NITROGEN 51 mg/dL (7-20); C-REACTIVE PROTEIN 26.9 mg/L (<10.0); CALCIUM 11.3 mg/dL (8.4-10.2); CARBON DIOXIDE 25 mmol/L (22-30); CHLORIDE 109 mmol/L (98-107); GLUCOSE 135 mg/dL (75-110); POTASSIUM 3.9 mmol/L (3.6-5.0); SODIUM 143.8 mmol/L (137-145)
--- NOTE | 2018-07-20 16:26 | RADIOLOGY REPORT (SQ) ---
EXAM DESCRIPTION: HAND LEFT 3 VIEWS COMPLETED DATE/TIME: 07/20/2018 4:13 pm REASON FOR STUDY: Pain swelling red warm COMPARISON: None. EXAM PARAMETERS: NUMBER OF VIEWS: Three views. TECHNIQUE: AP, lateral and oblique radiographic images acquired of the left hand. LIMITATIONS: None. FINDINGS: MINERALIZATION: Normal. BONES: No acute fracture or dislocation. No worrisome bone lesions. Degenerative changes in the wri st. JOINTS: No effusions. SOFT TISSUES: No soft tissue swelling. No foreign body. OTHER: No other significant finding. IMPRESSION: NEGATIVE STUDY OF THE LEFT HAND. NO RADIOGRAPHIC EVIDENCE OF ACUTE INJURY. TECHNICAL DOCUMENTATION: JOB ID: [id number] [employer] All Rights Reserved Reading location - IP/workstation name: [email or web address]
[2018-07-20 16:41] LABS: ERYTHROCYTE SEDIMENTATION RATE 32 mm/hr (0-20)
--- NOTE | 2018-07-20 20:20 | ER Document Report ---
ED General - General Chief Complaint: Hand Injury Stated Complaint: SWOLLEN HAND Time Seen by Provider: 07/20/18 15:44 Primary Care Provider: PRAVEENA BARROSO MD [ACTIVE STAFF] - Follow up as needed Mode of Arrival: Ambulatory TRAVEL OUTSIDE OF THE [place] IN LAST 30 DAYS: No - HPI Notes: Patient is a 78-year-old male that presents to the emergency department for chief complaint of left hand swelling. Patient states he has had increased swelling and pain in his left wrist and hand over the last week. He denies injury or trauma. He states he was changing an air conditioner when he noticed it but did not have an injury or cut during that. He states he has had gout once in his life and it was many years ago. He states the pain in his wrist is severe and worse with any movement. He does report that the joint feels warm. He denies any associated fevers or chills. Past Medical History: [place], diabetes, hypertension, hyperlipidemia, chronic renal failure, congestive heart failure Past Surgical History: Pacemaker Social History: Denies drugs alcohol and tobacco Family History: Reviewed and noncontributory for presenting illness Allergies: Reviewed, see documented allergy list. REVIEW OF SYSTEMS: CONSTITUTIONAL : No fever No chills No diaphoresis No recent illness EENT: No vision changes No congestion No sore throat CARDIOVASCULAR: No chest pain No palpitations RESPIRATORY: No shortness of breath No cough No difficulty breathing GASTROINTESTINAL: No abdominal pain No nausea No vomiting No diarrhea GENITOURINARY: No dysuria No hematuria No difficulty urinating MUSCULOSKELETAL: No back pain No leg pain Left hand and wrist pain SKIN: Left wrist redness No lesions LYMPHATIC: No swollen, enlarged glands. NEUROLOGICAL: No lightheadedness No headache No weakness No paresthesias PSYCHIATRIC: No anxiety No depression PHYSICAL EXAMINATION: Vital signs reviewed, nursing noted reviewed. GENERAL: Well-appearing, well-nourished and in no acute distress. HEAD: Atraumatic, normocephalic. EYES: Eyes appear normal, extraocular movements intact, sclera anicteric, conjunctiva are normal. ENT: nares patent, oropharynx clear without exudates. Moist mucous membranes. NECK: Normal range of motion, supple without lymphadenopathy LUNGS: Breath sounds clear to auscultation bilaterally and equal. No wheezes rales or rhonchi. HEART: Regular rate and rhythm without murmurs ABDOMEN: Soft, nontender, normoactive bowel sounds. No rebound, guarding, or rigidity. No masses appreciated. EXTREMITIES: Erythema, edema and Kasia to left wrist and dorsal left hand. Severe pain with range of motion of left wrist, limited range of motion of left wrist. No erythematous streaking up the forearm. Normal left elbow exam. No hand tenderness to palpation. Severe tenderness to palpation of the left wrist. NEUROLOGICAL: No focal neurological deficits. Moves all extremities spontan eously Motor and sensory grossly intact on exam. PSYCH: Normal mood, normal affect. SKIN: Warm, Dry, normal turgor, erythema overlying left hand and wrist without extension into forearm - Related Data Allergies/Adverse Reactions: No Known Allergies Allergy (Verified 07/20/18 15:07) Past Medical History - General Information source: Patient - Social History Smoking Status: Former Smoker Frequency of alcohol use: None Drug Abuse: None Family History: Reviewed & Not Pertinent Patient has suicidal ideation: No Patient has homicidal ideation: No - Past Medical History Cardiac Medical History: Reports: Hx Congestive Heart Failure, Hx Coronary Artery Disease, Hx Heart Attack, Hx Hypercholesterolemia Endocrine Medical History: Reports: Hx Diabetes Mellitus Type 2 - Borderline Renal/ Medical History: Reports: Hx End Stage Renal Disease - stage 4. Denies: Hx Peritoneal Dialysis Past Surgical History: Reports: Hx Cardiac Surgery - pacemaker/defibrillator, Hx Coronary Stent, Hx Internal Defibrillator, Hx Orthopedic Surgery - Right clavicle fracture repair, Hx Pacemaker, Other - Head injury requiring metal plate in his skull Physical Exam - Vital signs Vitals: Temp Pulse Resp BP Pulse Ox 98.4 F 82 16 175/92 H 97 07/20/18 15:15 07/20/18 15:15 07/20/18 15:15 07/20/18 15:15 07/20/18 15:15 Course - Re-evaluation Re-evalutation: 07/20/18 20:42 Vitals reviewed. Nursing notes reviewed. Patient is afebrile and hemodynamically stable. His lab work has no leukocytosis but he does have elevated ESR and CRP. Imaging shows no underlying bony injury or foreign material. Patient's joint is warm to touch with significant swelling and erythema concerning for possible septic arthritis versus gouty arthritis or inflammatory response. Patient does have a history of gout but he is only had one episode many years ago. He does have risk factor for infection including severe chronic medical illnesses and age. I discussed his care with Dr. Ospina who recommends IV antibiotics and monitoring overnight. He states he will perform arthrocentesis tomorrow if patient is not improving. Patient's care discussed with Dr. Duran who will admit him to the hospital for further care. Laboratory 07/20/18 07/20/18 15:50 15:50 WBC 5.7 RBC 4.46 Hgb 12.4 L Hct 38.2 MCV 86 MCH 27.8 MCHC 32.4 RDW 15.8 H Plt Count 149 L Seg Neutrophils % 74.1 Lymphocytes % 9.2 L Monocytes % 14.0 H Eosinophils % 1.8 Basophils % 0.9 Absolute Neutrophils 4.2 Absolute Lymphocytes 0.5 Absolute Monocytes 0.8 Absolute Eosinophils 0.1 Absolute Basophils 0.0 ESR 32 H Sodium 143.8 Potassium 3.9 Chloride 109 H Carbon Dioxide 25 Anion Gap 10 BUN 51 H Creatinine 3.47 H Est GFR ( Amer) 21 L Est GFR (Non-Af Amer) 17 L Glucose 135 H Calcium 11.3 H Total Bilirubin 1.0 Direct Bilirubin 0.3 Neonat Total Bilirubin Not Reportable Neonat Direct Bilirubin Not Reportable Neonat Indirect Bili Not Reportable AST 20 ALT 21 Alkaline Phosphatase 101 C-Reactive Protein 26.9 H Total Protein 7.0 Albumin 3.9 Hand X-Ray 07/20/18 15:44 IMPRESSION: NEGATIVE STUDY OF THE LEFT HAND. NO RADIOGRAPHIC EVIDENCE OF ACUTE INJURY. - Vital Signs Vital signs: Temp Pulse Resp BP Pulse Ox 98.4 F 82 16 175/92 H 97 07/20/18 15:15 07/20/18 15:15 07/20/18 15:15 07/20/18 15:15 07/20/18 15:15 - Laboratory Result Diagrams: 07/20/18 15:50 07/20/18 15:50 Laboratory results interpreted by me: 07/20/18 07/20/18 15:50 15:50 Hgb 12.4 L RDW 15.8 H Plt Count 149 L Lymphocytes % 9.2 L Monocytes % 14.0 H ESR 32 H Chloride 109 H BUN 51 H Creatinine 3.47 H Est GFR ( Amer) 21 L Est GFR (Non-Af Amer) 17 L Glucose 135 H Calcium 11.3 H C-Reactive Protein 26.9 H Discharge - Discharge Clinical Impression: Infection of left wrist Condition: Stable Disposition: ADMITTED INPATIENT [facility] Referrals: PRAVEENA BARROSO MD [ACTIVE STAFF] - Follow up as needed
[2018-07-20] MEDS ORDERED: VANCOMYCIN HCL INJ 1000 MG VIAL IV ONE (20:25)
[2018-07-21] MEDS ORDERED: PREDNISONE 20 MG TABLET PO ONE (01:30)
[2018-07-21] MEDS: HYDRALAZINE HCL 25 MG TABLET PO SCH ×3 (05:22→21:32)
--- NOTE | 2018-07-21 07:27 | EKG REPORT ---
SEVERITY:- ABNORMAL ECG - ATRIAL FIBRILLATION, V-RATE 72-97 PAIRED VENTRICULAR PREMATURE COMPLEXES LEFT ANTERIOR FASCICULAR BLOCK PROBABLE ANTEROSEPTAL INFARCT, OLD ABNORMAL T, CONSIDER ISCHEMIA, DIFFUSE LEADS LATERAL LEADS ARE ALSO INVOLVED BORDERLINE PROLONGED QT INTERVAL : Confirmed by: Fernando Wisdom MD 21-Jul-2018 07:27:07
--- NOTE | 2018-07-21 07:36 | PDOC CONSULTATION ---
Consultation Consult Date: 07/21/18 Provider Consulted: ANGELICA SARAH History of Present Illness Admission Date/PCP: 07/20/18 20:55 HIMA NIKITA Patient complains of: Left wrist pain History of Present Illness: SORIN PINEDA is a 78 year old male who developed pain in his left wrist. All began approximately 1 week ago. Patient denies specific injury. Denies open wound. Patient states the pain worse with any motion. Denies numbness or tingling. Does have history of gout. Patient denies fever chills or sweats. On presentation pain was 5/5 this has improved over the past 12 hours according to the patient. Past Medical History Cardiac Medical History: Reports: Congestive Heart Failure, Coronary Artery Disease, Myocardial Infarction, Hyperlipidema Endocrine Medical History: Reports: Diabetes Mellitus Type 2 - Borderline Renal/ Medical History: Reports: End Stage Renal Disease - stage 4 Past Surgical History Past Surgical History: Reports: Coronary Stent, Internal Defibrillator, Orthopedic Surgery - Right clavicle fracture repair, Pacemaker, Other - Head injury requiring metal plate in his skull Social History Smoking Status: Former Smoker Cigarettes Packs Per Day: 0.1 Number of Years Smokin Frequency of Alcohol Use: None Hx Recreational Drug Use: No Drugs: None Hx Prescription Drug Abuse: No Family History Family History: Reviewed & Not Pertinent Parental Family History Reviewed: No Children Family History Reviewed: No Sibling(s) Family History Reviewed.: No Medication/Allergy Home Medications: Carvedilol [Coreg 6.25 mg Tablet] 6.25 mg PO Q12 07/25/17 Ergocalciferol (Vitamin D2) [Drisdol 50,000 unit (1.25MG) Capsule] 50,000 unit PO [id number] 07/25/17 Glipizide [Glucotrol 5 mg Tablet] 2.5 mg PO DAILY 07/25/17 Hydralazine HCl [Apresoline 25 mg Tablet] 37.5 mg PO Q8 07/25/17 Patiromer Calcium Sorbitex [Veltassa] 16.8 gm PO QAM 07/25/17 Apixaban [Eliquis 2.5 mg Tablet] 2.5 mg PO Q12@0800,2000 #60 tablet 07/30/17 Furosemide [Lasix 20 mg Tablet] 20 mg PO BID #60 tablet 07/30/17 Aspirin [Ecotrin 81 mg EC Tablet] 81 mg PO DAILY 07/20/18 Umeclidinium Brm/Vilanterol Tr [Anoro Ellipta 62.5-25 Mcg INH] 1 each IH DAILY 07/20/18 Allergies/Adverse Reactions: No Known Allergies Allergy (Verified 07/20/18 15:07) Review of Systems Constitutional: ABSENT: chills, fever(s), headache(s), weight gain, weight loss Eyes: ABSENT: visual disturbances Ears: ABSENT: hearing changes Cardiovascular: ABSENT: chest pain, dyspnea on exertion, edema, orthropnea, palpitations Respiratory: ABSENT: cough, hemoptysis Gastrointestinal: ABSENT: abdominal pain, constipation, diarrhea, hematemesis, hematochezia, nausea, vomiting Genitourinary: ABSENT: dysuria, hematuria Musculoskeletal: PRESENT: as per HPI Integumentary: ABSENT: rash, wounds Neurological: ABSENT: abnormal gait, abnormal speech, confusion, dizziness, focal weakness, syncope Psychiatric: ABSENT: anxiety, depression, homidical ideation, suicidal ideation Endocrine: ABSENT: cold intolerance, heat intolerance, menstrual abnormalities, polydipsia, polyuria Hematologic/Lymphatic: ABSENT: easy bleeding, easy bruising, lymphadenopathy Physical Exam Vital Signs: Temp Pulse Resp BP Pulse Ox 98.6 F 83 22 H 146/93 H 92 07/21/18 05:20 07/21/18 05:20 07/21/18 05:20 07/21/18 05:20 07/21/18 05:20 Intake & Output 07/20/18 07/21/18 07/22/18 06:59 06:59 06:59 Weight 84.1 kg General appearance: PRESENT: no acute distress, well-developed, well-nourished Head exam: PRESENT: atraumatic, normocephalic Eye exam: PRESENT: conjunctiva pink, EOMI, PERRLA. ABSENT: scleral icterus Ear exam: PRESENT: normal external ear exam Mouth exam: PRESENT: moist, tongue midline Teeth exam: PRESENT: poor dentation Neck exam: PRESENT: full ROM. ABSENT: carotid bruit, JVD, lymphadenopathy, th yromegaly Respiratory exam: PRESENT: unlabored Cardiovascular exam: PRESENT: RRR. ABSENT: diastolic murmur, rubs, systolic murmur Pulses: PRESENT: normal dorsalis pedis pul, +2 pedal pulses bilateral Vascular exam: PRESENT: normal capillary refill GI/Abdominal exam: PRESENT: normal bowel sounds, soft. ABSENT: distended, guarding, mass, organolmegaly, rebound, tenderness Rectal exam: PRESENT: deferred Musculoskeletal exam: PRESENT: other - Left hand: Swelling and edema along the dorsum of the hand. No palpable fluctuance. Mild tenderness along the scapholunate interval dorsally. No palpable effusion. Pain with attempted digit range of motion. MP/IP joint flexion/extension intact. EPL/FPL intact. No streaking erythema. Pain with terminal flexion/extension. No pain with mid range of motion. Neurological exam: PRESENT: alert, awake, oriented to person, oriented to place, oriented to time, oriented to situation, CN II-XII grossly intact. ABSENT: motor sensory deficit Psychiatric exam: PRESENT: appropriate affect, normal mood. ABSENT: homicidal ideation, suicidal ideation Skin exam: PRESENT: dry, intact, warm. ABSENT: cyanosis, rash Results Laboratory Results: 07/20/18 15:50 07/20/18 15:50 07/20/18 07/20/18 07/20/18 15:50 15:50 15:50 WBC 5.7 RBC 4.46 Hgb 12.4 L Hct 38.2 MCV 86 MCH 27.8 MCHC 32.4 RDW 15.8 H Plt Count 149 L Seg Neutrophils % 74.1 Lymphocytes % 9.2 L Monocytes % 14.0 H Eosinophils % 1.8 Basophils % 0.9 Absolute Neutrophils 4.2 Absolute Lymphocytes 0.5 Absolute Monocytes 0.8 Absolute Eosinophils 0.1 Absolute Basophils 0.0 Sodium 143.8 Potassium 3.9 Chloride 109 H Carbon Dioxide 25 Anion Gap 10 BUN 51 H Creatinine 3.47 H Est GFR ( Amer) 21 L Est GFR (Non-Af Amer) 17 L Glucose 135 H Uric Acid 10.8 H Calcium 11.3 H Total Bilirubin 1.0 AST 20 ALT 21 Alkaline Phosphatase 101 C-Reactive Protein 26.9 H Total Protein 7.0 Albumin 3.9 Impressions: Hand X-Ray 07/20/18 15:44 IMPRESSION: NEGATIVE STUDY OF THE LEFT HAND. NO RADIOGRAPHIC EVIDENCE OF ACUTE INJURY. Status: Image reviewed by me - I have reviewed patient's radiographs which demonstrate degenerative changes along the lunate and distal ulna along with calcification. No evidence of acute abnormality. Soft tissue swelling. Assessment & Plan - Diagnosis (1) Gout of left wrist Qualifiers: Gout etiology: unspecified cause Is this a current diagnosis for this admission?: Yes Plan: I have reviewed patient's laboratory values which demonstrate mildly elevated sed rate and CRP given the longevity of his symptoms would anticipate a septic course to have a more significant elevation in CRP. He has seen improvement after 1 dose of steroids and IV antibiotics. Furthermore patient's uric acid is significant elevated likely more indicative of gout however underlying infection and gout do remain a possibility. Given his notable improvement after 12 hours I do not feel septic arthritis is likely cause of patient's current symptoms however if he feels any improvement or worsens will obtain MRI. In the meantime recommendation would be for antigout medication and follow clinical improvement.
[2018-07-21] MEDS: PATIROMER 8.4 GM SUSP PACKET PO SCH (07:53)
[2018-07-21] MEDS ORDERED: (PENDING PHARMACY ID) (Umeclidinium Brm/Vilanterol Tr [Anoro Ellipta 62.5-25 Mcg Inh] 1 EA IH SCH (10:00)
[2018-07-21] MEDS: GLIPIZIDE 5 MG TABLET PO SCH (10:38)
[2018-07-21] MEDS: CARVEDILOL 6.25 MG TABLET PO SCH ×2 (10:39→21:32)
[2018-07-21] MEDS: FUROSEMIDE 20 MG TABLET PO SCH ×2 (10:39→18:12)
[2018-07-21] MEDS ORDERED: PREDNISONE 20 MG TABLET PO SCH (12:00)
--- NOTE | 2018-07-21 20:04 | PDOC H&P ---
History of Present Illness Admission Date/PCP: 07/20/18 20:55 HIMAERIKA SHELTON Patient complains of: Left hand and wrist joint pain swelling and pain. History of Present Illness: SORIN PINEDA is a 78 year old male known to my practice who presented to the ED with left hand and wrist joint swelling that worsen over last one week. Patient reported that worsening increase in his pain level prompted his visit to the ED. He denied any preceding recent trauma or instrumentation. He reported that movement around his left wrist worsen his pain. No associated fever or chills but note warm feeling around his left hand and wrist joint. He has history of gout but has been flare free for several years. He denied any recent excessive consumption of seafood or red wine. Patient vehemently denied alcohol usage. There was initial concern for possible septic joint and he was treated in the ED with IV Vancomycin. Further evaluation did revealed significant serum ur ic acid elevated level at 10.8. His morbidities include hypertension, CHF, CKD, Diabetes mellitus type 2. He was advised hospitalization for further evaluation and management. Past Medical History Cardiac Medical History: Reports: Congestive Heart Failure, Coronary Artery Disease, Myocardial Infarction, Hyperlipidema Endocrine Medical History: Reports: Diabetes Mellitus Type 2 - Borderline Renal/ Medical History: Reports: End Stage Renal Disease - stage 4 Past Surgical History Past Surgical History: Reports: Coronary Stent, Internal Defibrillator, Orthopedic Surgery - Right clavicle fracture repair, Pacemaker, Other - Head injury requiring metal plate in his skull Social History Smoking Status: Former Smoker Cigarettes Packs Per Day: 0.1 Number of Years Smokin Frequency of Alcohol Use: None Hx Recreational Drug Use: No Drugs: None Hx Prescription Drug Abuse: No - Advance Directive Resuscitation Status: Full Code Family History Family History: Reviewed & Not Pertinent Parental Family History Reviewed: Yes Children Family History Reviewed: Yes Sibling(s) Family History Reviewed.: Yes Medication/Allergy Home Medications: Carvedilol [Coreg 6.25 mg Tablet] 6.25 mg PO Q12 07/25/17 Ergocalciferol (Vitamin D2) [Drisdol 50,000 unit (1.25MG) Capsule] 50,000 unit PO [id number] 07/25/17 Glipizide [Glucotrol 5 mg Tablet] 2.5 mg PO DAILY 07/25/17 Hydralazine HCl [Apresoline 25 mg Tablet] 37.5 mg PO Q8 07/25/17 Patiromer Calcium Sorbitex [Veltassa] 16.8 gm PO QAM 07/25/17 Apixaban [Eliquis 2.5 mg Tablet] 2.5 mg PO Q12@0800,2000 #60 tablet 07/30/17 Furosemide [Lasix 20 mg Tablet] 20 mg PO BID #60 tablet 07/30/17 Aspirin [Ecotrin 81 mg EC Tablet] 81 mg PO DAILY 07/20/18 Umeclidinium Brm/Vilanterol Tr [Anoro Ellipta 62.5-25 Mcg INH] 1 each IH DAILY 07/20/18 Allergies/Adverse Reactions: No Known Allergies Allergy (Verified 07/20/18 15:07) Review of Systems Constitutional: ABSENT: chills, fever(s), headache(s), weight gain, weight loss Eyes: ABSENT: visual disturbances Ears: ABSENT: hearing changes Nose, Mouth, and Throat: ABSENT: as per HPI, headache(s), mouth pain, sore throat, vertigo, other Cardiovascular: ABSENT: chest pain, dyspnea on exertion, edema, orthropnea, palpitations Respiratory: ABSENT: cough, hemoptysis Gastrointestinal: ABSENT: abdominal pain, constipation, diarrhea, hematemesis, hematochezia, nausea, vomiting Musculoskeletal: PRESENT: joint swelling - left wrist, other - left wrist joint pain Integumentary: ABSENT: rash, wounds Neurological: ABSENT: abnormal gait, abnormal speech, confusion, dizziness, focal weakness, syncope Psychiatric: ABSENT: anxiety, depression, homidical ideation, suicidal ideation Endocrine: ABSENT: cold intolerance, heat intolerance, polydipsia, polyuria Hematologic/Lymphatic: ABSENT: easy bleeding, easy bruising, lymphadenopathy Allergic/Immunologic: ABSENT: seasonal rhinorrhea Physical Exam Vital Signs: Temp Pulse Resp BP Pulse Ox 98.1 F 84 19 170/86 H 95 07/21/18 07:59 07/21/18 07:59 07/21/18 07:59 07/21/18 07:59 07/21/18 07:59 Intake & Output 07/20/18 07/21/18 07/22/18 06:59 06:59 06:59 Intake Total 50 Balance 50 Weight 84.1 kg General appearance: PRESENT: mild distress - from left wrist joint pain, obese Head exam: PRESENT: atraumatic, normocephalic Eye exam: PRESENT: conjunctiva pink, EOMI, PERRLA. ABSENT: scleral icterus Ear exam: PRESENT: normal external ear exam Mouth exam: PRESENT: moist Neck exam: PRESENT: full ROM. ABSENT: carotid bruit, JVD, lymphadenopathy, thyromegaly Respiratory exam: PRESENT: clear to auscultation amelia, decreased breath sounds - at lung bases Cardiovascular exam: PRESENT: RRR. ABSENT: diastolic murmur, rubs, systolic murmur Vascular exam: ABSENT: pallor GI/Abdominal exam: PRESENT: normal bowel sounds, soft. ABSENT: distended, guarding, mass, organolmegaly, rebound, tenderness Rectal exam: PRESENT: deferred Extremities exam: PRESENT: joint swelling - left wrist joint, pedal edema - minimal and comparatively better, tenderness - left wrist joint Musculoskeletal exam: PRESENT: deformity - left wrist joint, tenderness - left wrist with AROM Neurological exam: PRESENT: alert, awake, oriented to person, oriented to place, oriented to time, oriented to situation, CN II-XII grossly intact. ABSENT: motor sensory deficit Psychiatric exam: PRESENT: appropriate affect, normal mood. ABSENT: homicidal ideation, suicidal ideation Skin exam: PRESENT: dry, warm Results Laboratory Results: 07/20/18 15:50 07/20/18 15:50 07/20/18 07/20/18 07/20/18 15:50 15:50 15:50 WBC 5.7 RBC 4.46 Hgb 12.4 L Hct 38.2 MCV 86 MCH 27.8 MCHC 32.4 RDW 15.8 H Plt Count 149 L Seg Neutrophils % 74.1 Lymphocytes % 9.2 L Monocytes % 14.0 H Eosinophils % 1.8 Basophils % 0.9 Absolute Neutrophils 4.2 Absolute Lymphocytes 0.5 Absolute Monocytes 0.8 Absolute Eosinophils 0.1 Absolute Basophils 0.0 Sodium 143.8 Potassium 3.9 Chloride 109 H Carbon Dioxide 25 Anion Gap 10 BUN 51 H Creatinine 3.47 H Est GFR ( Amer) 21 L Est GFR (Non-Af Amer) 17 L Glucose 135 H Uric Acid 10.8 H Calcium 11.3 H Total Bilirubin 1.0 AST 20 ALT 21 Alkaline Phosphatase 101 C-Reactive Protein 26.9 H Total Protein 7.0 Albumin 3.9 Impressions: Hand X-Ray 07/20/18 15:44 IMPRESSION: NEGATIVE STUDY OF THE LEFT HAND. NO RADIOGRAPHIC EVIDENCE OF ACUTE INJURY. Assessment & Plan - Diagnosis (1) Gout of left wrist Qualifiers: Gout etiology: unspecified cause Chronicity: acute Qualified Code(s): M10.9 - Gout, unspecified Is this a current diagnosis for this admission?: Yes Plan: See admitting attending physician orders for details of care plan. (2) CKD (chronic kidney disease) stage 4, GFR 15-29 ml/min Is this a current diagnosis for this admission?: Yes Plan: See admitting attending physician orders for details of care plan. (3) Diabetes mellitus type 2 with complications Qualifiers: Diabetes mellitus skilled nursing insulin use: without skilled nursing use Qualified Code(s): E11.8 - Type 2 diabetes mellitus with unspecified complications Is this a current diagnosis for this admission?: Yes Plan: See admitting attending physician orders for details of care plan. (4) Chronic combined systolic (congestive) and diastolic (congestive) heart failure Is this a current diagnosis for this admission?: Yes Plan: See admitting attending physician orders for details of care plan. (5) Hypertension Qualifiers: Hypertension type: essential hypertension Qualified Code(s): I10 - Essential (primary) hypertension Is this a current diagnosis for this admission?: Yes Plan: See admitting attending physician orders for details of care plan. (6) Chronic a-fib Is this a current diagnosis for this admission?: Yes Plan: See admitting attending physician orders for details of care plan. (7) CAD (coronary atherosclerotic disease) Qualifiers: Coronary Disease-Associated Artery/Lesion type: unspecified vessel or lesion type Associated angina: without angina Is this a current diagnosis for this admission?: Yes Plan: See admitting attending physician orders for details of care plan. (8) Old KS (myocardial infarction) Is this a current diagnosis for this admission?: Yes Plan: See admitting attending physician orders for details of care plan. (9) HLD (hyperlipidemia) Qualifiers: Hyperlipidemia type: pure hypercholesterolemia Qualified Code(s): E78.00 - Pure hypercholesterolemia, unspecified Is this a current diagnosis for this admission?: Yes Plan: See admitting attending physician orders for details of care plan. - Time Time Spent: 50 to 70 Minutes Medications reviewed and adjusted accordingly: Yes Anticipated discharge: Home with Homehealth Within: Other - Inpatient Certification Based on my medical assessment, after consideration of the patient's comorbidities, presenting symptoms, or acuity I expect that the services needed warrant INPATIENT care.: Yes I certify that my determination is in accordance with my understanding of [facility]'s requirements for reasonable and necessary INPATIENT services [42 CFR 412.3e].: Yes Medical Necessity: Significant Comorbidiites Make Outpatient Treatment Too Risky, Need Close Monitoring Due to Risk of Patient Decompensation, Need For Continuous Telemetry Monitoring, Need for Pain Control, Risk of Complication if Not Cared For in Hospital, Risk of Diagnosis Which Will Require Inpatient Eval/Care/Monitoring Post Hospital Care: D/C Legal Billing Specialist Documentation - Plan Summary Plan Summary: See admitting attending physician orders for details of care plan. Patient was seen in consultation by Dr. Ospina, orthopedic, per ED physician request for possible joint fluid aspiration. His recommendations are noted.
[2018-07-22] MEDS: HYDRALAZINE HCL 25 MG TABLET PO SCH ×3 (05:48→21:09)
[2018-07-22] MEDS: PATIROMER 8.4 GM SUSP PACKET PO SCH (08:05)
[2018-07-22] MEDS: FUROSEMIDE 20 MG TABLET PO SCH ×2 (10:41→17:33)
[2018-07-22] MEDS: GLIPIZIDE 5 MG TABLET PO SCH (10:42)
[2018-07-22] MEDS: CARVEDILOL 6.25 MG TABLET PO SCH ×2 (10:42→21:09)
[2018-07-22] MEDS: PREDNISONE 20 MG TABLET PO SCH (10:43)
--- NOTE | 2018-07-22 21:11 | PDOC PROGRESS REPORT ---
Subjective Progress Note for:: 07/22/18 Subjective:: Patient reported improvement in the left wrist swelling and pain. No chest pain or difficulty with breathing. No abdominal pain, nausea or vomiting. No fever or chills. His accu chek reading has been fair. Reason For Visit: ACUTE GOUTY ARTHRITIS LEFT WRIST JOINT;CHRONIC Physical Exam Vital Signs: Temp Pulse Resp BP Pulse Ox 97.7 F 53 L 22 H 101/61 92 07/22/18 20:26 07/22/18 20:26 07/22/18 20:26 07/22/18 20:26 07/22/18 20:26 Intake & Output 07/21/18 07/22/18 07/23/18 06:59 06:59 06:59 Intake Total 50 1166 354 Output Total 800 700 Balance 50 366 -346 Weight 84.1 kg 85.1 kg General appearance: PRESENT: obese Head exam: PRESENT: atraumatic, normocephalic Eye exam: PRESENT: conjunctiva pink. ABSENT: scleral icterus Ear exam: PRESENT: normal external ear exam Mouth exam: PRESENT: moist Respiratory exam: PRESENT: clear to auscultation amelia Cardiovascular exam: PRESENT: RRR. ABSENT: diastolic murmur, rubs, systolic murmur Vascular exam: ABSENT: pallor GI/Abdominal exam: PRESENT: normal bowel sounds, soft. ABSENT: distended, guarding, mass, organolmegaly, rebound, tenderness Extremities exam: PRESENT: pedal edema - minimal in both legs, tenderness - left wrist joint Musculoskeletal exam: PRESENT: deformity - related to multiple joints involve ment with arthritis. Neurological exam: PRESENT: alert, awake, oriented to person, oriented to place, oriented to time, oriented to situation, CN II-XII grossly intact. ABSENT: motor sensory deficit Psychiatric exam: PRESENT: appropriate affect, normal mood. ABSENT: homicidal ideation, suicidal ideation Skin exam: PRESENT: dry, warm Results Laboratory Results: 07/20/18 15:50 07/20/18 15:50 Impressions: Hand X-Ray 07/20/18 15:44 IMPRESSION: NEGATIVE STUDY OF THE LEFT HAND. NO RADIOGRAPHIC EVIDENCE OF ACUTE INJURY. Assessment & Plan - Diagnosis (1) Gout of left wrist Qualifiers: Gout etiology: unspecified cause Chronicity: acute Qualified Code(s): M10.9 - Gout, unspecified Is this a current diagnosis for this admission?: Yes (2) CKD (chronic kidney disease) stage 4, GFR 15-29 ml/min Is this a current diagnosis for this admission?: Yes (3) Diabetes mellitus type 2 with complications Qualifiers: Diabetes mellitus [facility] insulin use: without [facility] use Qualified Code(s): E11.8 - Type 2 diabetes mellitus with unspecified complications Is this a current diagnosis for this admission?: Yes (4) Chronic combined systolic (congestive) and diastolic (congestive) heart failure Is this a current diagnosis for this admission?: Yes (5) Hypertension Qualifiers: Hypertension type: essential hypertension Qualified Code(s): I10 - Essential (primary) hypertension Is this a current diagnosis for this admission?: Yes (6) Chronic a-fib Is this a current diagnosis for this admission?: Yes (7) CAD (coronary atherosclerotic disease) Qualifiers: Coronary Disease-Associated Artery/Lesion type: unspecified vessel or lesion type Associated angina: without angina Is this a current diagnosis for this admission?: Yes (8) Old [place] (myocardial infarction) Is this a current diagnosis for this admission?: Yes (9) HLD (hyperlipidemia) Qualifiers: Hyperlipidemia type: pure hypercholesterolemia Qualified Code(s): E78.00 - Pure hypercholesterolemia, unspecified Is this a current diagnosis for this admission?: Yes - Time Time Spent with patient: 25-34 minutes Medications reviewed and adjusted accordingly: Yes Anticipated discharge: Home Within: Other - Inpatient Certification Based on my medical assessment, after consideration of the patient's comorbidities, presenting symptoms, or acuity I expect that the services needed warrant INPATIENT care.: Yes I certify that my determination is in accordance with my understanding of Medicare's requirements for reasonable and necessary INPATIENT services [42 CFR 412.3e].: Yes Medical Necessity: Significant Comorbidiites Make Outpatient Treatment Too Risky, Need Close Monitoring Due to Risk of Patient Decompensation, Need For Continuous Telemetry Monitoring, Risk of Complication if Not Cared For in Hospital, Risk of Diagnosis Which Will Require Inpatient Eval/Care/Monitoring Post Hospital Care: D/C Cable Coverer Documentation - Plan Summary Plan Summary: Decrease Prednisone to 40 mg p.o daily. Continue all other current medication management. Possible discharge home tomorrow.
[2018-07-23] MEDS: HYDRALAZINE HCL 25 MG TABLET PO SCH (05:19)
[2018-07-23] MEDS: PATIROMER 8.4 GM SUSP PACKET PO SCH (07:28)
[2018-07-23 08:09] VITALS: BP 149/88
[2018-07-23] MEDS: FUROSEMIDE 20 MG TABLET PO SCH (09:12)
[2018-07-23] MEDS: CARVEDILOL 6.25 MG TABLET PO SCH (09:12)
[2018-07-23] MEDS: PREDNISONE 20 MG TABLET PO SCH (09:13)
[2018-07-23] MEDS: GLIPIZIDE 5 MG TABLET PO SCH (09:13)
--- NOTE | 2018-07-27 20:09 | PDOC DISCHARGE SUMMARY ---
General - Admit/Disc Date/PCP Admission Date/Primary Care Provider: 07/20/18 20:55 HIMA NIKITA Discharge Date: 07/23/18 - Discharge Diagnosis (1) Gout of left wrist Is this a current diagnosis for this admission?: Yes (2) CKD (chronic kidney disease) stage 4, GFR 15-29 ml/min Is this a current diagnosis for this admission?: Yes (3) Diabetes mellitus type 2 with complications Is this a current diagnosis for this admission?: Yes (4) Chronic combined systolic (congestive) and diastolic (congestive) heart failure Is this a current diagnosis for this admission?: Yes (5) Hypertension Is this a current diagnosis for this admission?: Yes (6) Chronic a-fib Is this a current diagnosis for this admission?: Yes (7) CAD (coronary atherosclerotic disease) Is this a current diagnosis for this admission?: Yes (8) Old [place] (myocardial infarction) Is this a current diagnosis for this admission?: Yes (9) HLD (hyperlipidemia) Is this a current diagnosis for this admission?: Yes - Additional Information Resuscitation Status: Full Code Prescriptions: Prednisone [Deltasone 5 mg Tablet] 5 mg PO ASDIR PRN #21 tablet PRN Reason: Home Medications: Carvedilol [Coreg 6.25 mg Tablet] 6.25 mg PO Q12 07/25/17 Ergocalciferol (Vitamin D2) [Drisdol 50,000 unit (1.25MG) Capsule] 50,000 unit PO [id number] 07/25/17 Glipizide [Glucotrol 5 mg Tablet] 2.5 mg PO DAILY 07/25/17 Hydralazine HCl [Apresoline 25 mg Tablet] 37.5 mg PO Q8 07/25/17 Patiromer Calcium Sorbitex [Veltassa] 16.8 gm PO QAM 07/25/17 Apixaban [Eliquis 2.5 mg Tablet] 2.5 mg PO Q12@0800,2000 #60 tablet 07/30/17 Furosemide [Lasix 20 mg Tablet] 20 mg PO BID #60 tablet 07/30/17 Aspirin [Ecotrin 81 mg EC Tablet] 81 mg PO DAILY 07/20/18 Umeclidinium Brm/Vilanterol Tr [Anoro Ellipta 62.5-25 Mcg INH] 1 each IH DAILY 07/20/18 Prednisone [Deltasone 5 mg Tablet] 5 mg PO ASDIR PRN #21 tablet 07/23/18 History of Present Illness Patient complains of: Left wrist and hand swelling with pain History of Present Illness: SORIN PINEDA is a 78 year old male known to my practice who presented to the ED with left hand and wrist joint swelling that worsen over last one week. Patient reported that worsening increase in his pain level prompted his visit to the ED. He denied any preceding recent trauma or instrumentation. He reported that movement around his left wrist worsen his pain. No associated fever or chills but note warm feeling around his left hand and wrist joint. He has history of gout but has been flare free for several years. He denied any recent excessive consumption of seafood or red wine. Patient vehemently denied alcohol usage. There was initial concern for possible septic joint and he was treated in the ED with IV Vancomycin. Further evaluation did revealed significant serum uric acid elevated level at 10.8. His morbidities include hypertension, CHF, Chronic kidney disease, Diabetes mellitus type 2. He was advised hospitalization for further evaluation and management. Hospital Course Hospital Course: Patient was admitted with concern for left wrist joint acute gout flare up. He was adequately managed with oral Prednisone with resolution of joint swelling and pain. Due to his chronic kidney disease usual medication for his condition could not be administered. He will be discharge home of tapering dose of Prednisone and state on Allopurinol therapy during office follow up visit. Patient was instructed on avoidance of purine rich food. he will follow up in the office as instructed upon discharge. Physical Exam Vital Signs: Temp Pulse Resp BP Pulse Ox 97.4 F 62 20 108/81 100 07/23/18 04:34 07/23/18 06:55 07/23/18 04:34 07/23/18 04:34 07/23/18 04:34 Intake & Output 07/22/18 07/23/18 07/24/18 06:59 06:59 06:59 Intake Total 1166 554 Output Total 800 900 Balance 366 -346 Weight 85.1 kg Physical Exam: General appearance: PRESENT: obese Head exam: PRESENT: atraumatic, normocephalic Eye exam: PRESENT: conjunctiva pink. ABSENT: pallor, scleral icterus Ear exam: PRESENT: normal external ear exam Mouth exam: PRESENT: moist Respiratory exam: PRESENT: clear to auscultation amelia Cardiovascular exam: PRESENT: RRR. ABSENT: diastolic murmur, rubs, systolic murmur GI/Abdominal exam: PRESENT: normal bowel sounds, soft. ABSENT: distended, guarding, mass, organomegaly, rebound, tenderness Extremities exam: PRESENT: pedal edema - minimal in both legs, Resolved tenderness - left wrist joint Musculoskeletal exam: PRESENT: deformity - related to multiple joints involvement with arthritis. Neurological exam: PRESENT: alert, awake, oriented to person, oriented to place, oriented to time, oriented to situation, CN II-XII grossly intact. ABSENT: motor sensory deficit Psychiatric exam: PRESENT: appropriate affect, normal mood. ABSENT: homicidal ideation, suicidal ideation Skin exam: PRESENT: dry, warm Results Laboratory Results: 07/20/18 15:50 07/20/18 15:50 Impressions: Hand X-Ray 07/20/18 15:44 IMPRESSION: NEGATIVE STUDY OF THE LEFT HAND. NO RADIOGRAPHIC EVIDENCE OF ACUTE INJURY. Qualifiers - * PATIENT BEING DISCHARGED WITH ANY OF THE FOLLOWING DIAGNOSIS: No Acute Heart Failure Is this a Heart Failure Patient?: No Plan Discharge Plan: D/C home today. Follow up in the office as instructed upon discharge.
[2018-08-08] MEDS ORDERED: ERGOCALCIFEROL (VITAMIN D2) 50000 UNIT (1.25 MG) CAPSULE PO SCH (10:00)
== END 2018-07-23 10:14 | disposition home or self-care (01) ==
LOC: ER 15:05 → EH 20:55 → INTOOBSV 20:55 → 3S 07-21 00:17
PROVIDERS: ADMIT Internal Medicine Geriatric Medicine; ATTEND Internal Medicine Geriatric Medicine
DX: M10.9 Gout, unspecified (principal); I13.0 Hypertensive heart and chronic kidney disease with heart failure and stage 1 through stage 4 chronic kidney disease, or unspecified chronic kidney disease; E11.22 Type 2 diabetes mellitus with diabetic chronic kidney disease; N18.4 Chronic kidney disease, stage 4 (severe); I50.42 Chronic combined systolic (congestive) and diastolic (congestive) heart failure; I25.10 Atherosclerotic heart disease of native coronary artery without angina pectoris; I48.2 Chronic atrial fibrillation; E78.5 Hyperlipidemia, unspecified; I25.2 Old myocardial infarction; Z79.899 Other long term (current) drug therapy; Z79.84 Long term (current) use of oral hypoglycemic drugs; Z79.82 Long term (current) use of aspirin; Z95.5 Presence of coronary angioplasty implant and graft; Z95.810 Presence of automatic (implantable) cardiac defibrillator; Z87.891 Personal history of nicotine dependence
CPT/HCPCS: 99285; 36415; 87040; 82962 ×3; 84550; 85025; 85652; 86140; 80053; 73130; 93005; 93010; G0378 ×2; A9270 ×15; J3370; J3490 ×3; J7512

== ENCOUNTER → 2018-10-15 | Outpatient (CLI) | payer MEDICARE, MEDICAID ==
[2018-10-15 08:15] LABS: HEMATOCRIT 40.5 % (37.9-51.0); HEMOGLOBIN 12.8 g/dL (13.5-17.0); MEAN CORPUSCULAR HEMOGLOBIN 28.4 pg (27.0-33.4); MEAN CORPUSCULAR HGB CONC 31.7 g/dL (32.0-36.0); MEAN CORPUSCULAR VOLUME 90 fl (80-97); PLATELET COUNT 170 10^3/uL (150-450); RED BLOOD COUNT 4.52 10^6/uL (4.35-5.55); RED CELL DISTRIBUTION WIDTH 18.7 % (11.5-14.0)
[2018-10-15 08:36] LABS: ANION GAP 11 (5-19); BLOOD UREA NITROGEN 46 mg/dL (7-20); CALCIUM 10.7 mg/dL (8.4-10.2); CARBON DIOXIDE 28 mmol/L (22-30); CHLORIDE 108 mmol/L (98-107); GLUCOSE 109 mg/dL (75-110); POTASSIUM 4.1 mmol/L (3.6-5.0)
[2018-10-15 09:23] LABS: ABSOLUTE MONOCYTES # (MANUAL) 0.8 10^3/uL (0.1-1.4); BASOPHILS % (MANUAL) 0 % (0-2); EOSINOPHILS % (MANUAL) 4 % (0-6); LYMPHOCYTES % (MANUAL) 20 % (13-45); MONOCYTES % (MANUAL) 16 % (3-13); SEGMENTED NEUTROPHILS % (MAN) 60 % (42-78); TOTAL CELLS COUNTED 100
[2018-10-15 09:25] LABS: ANISOCYTOSIS 2+; BURR CELLS 1+; OVALOCYTES 1+; PLATELET COMMENT ADEQUATE; POLYCHROMASIA SLIGHT; TOXIC GRANULATION SLIGHT; TOXIC VACUOLATION PRESENT
[2018-10-16 12:36] LABS: CREATININE URINE 47.5 mg/dL (Not Estab.); MICROALBUMIN URINE 166.6 ug/mL (Not Estab.)
== END ==
LOC: OD 07:25
PROVIDERS: ATTEND Internal Medicine Nephrology
DX: I12.9 Hypertensive chronic kidney disease with stage 1 through stage 4 chronic kidney disease, or unspecified chronic kidney disease (principal); N18.4 Chronic kidney disease, stage 4 (severe); E11.9 Type 2 diabetes mellitus without complications; E87.0 Hyperosmolality and hypernatremia
CPT/HCPCS: 36415; 80048; 82043; 82570; 85025

== ENCOUNTER → 2019-02-12 | Outpatient (CLI) | payer MEDICARE, MEDICAID ==
[2019-02-12 15:30] LABS: ABSOLUTE EOSINOPHILS # (AUTO) 0.1 10^3/uL (0.0-0.6); ABSOLUTE LYMPHOCYTES (AUTO) 0.5 10^3/uL (0.5-4.7); ABSOLUTE MONOCYTES (AUTO) 0.6 10^3/uL (0.1-1.4); ABSOLUTE NEUT (AUTO) 2.7 10^3/uL (1.7-8.2); BASOPHILS % (AUTO) 0.7 % (0-2); EOSINOPHILS % (AUTO) 2.2 % (0-6); HEMATOCRIT 41.1 % (37.9-51.0); HEMOGLOBIN 12.9 g/dL (13.5-17.0); MEAN CORPUSCULAR HEMOGLOBIN 28.4 pg (27.0-33.4); MEAN CORPUSCULAR HGB CONC 31.4 g/dL (32.0-36.0); MEAN CORPUSCULAR VOLUME 91 fl (80-97); MONOCYTES % (AUTO) 14.5 % (3-13); PLATELET COUNT 134 10^3/uL (150-450); RED BLOOD COUNT 4.54 10^6/uL (4.35-5.55); RED CELL DISTRIBUTION WIDTH 17.9 % (11.5-14.0); SEGMENTED NEUTROPHILS % (AUTO) 68.6 % (42-78); TOTAL CELLS COUNTED % (AUTO) 100 %; WHITE BLOOD COUNT 3.9 10^3/uL (4.0-10.5)
[2019-02-12 15:42] LABS: APPEARANCE,URINE CLEAR; BILIRUBIN,URINE NEGATIVE (NEGATIVE); COLOR,URINE YELLOW; GLUCOSE, URINE NEGATIVE (NEGATIVE); KETONES,URINE NEGATIVE (NEGATIVE); LEUKOCYTE ESTERASE,URINE NEGATIVE (NEGATIVE); NITRITE,URINE NEGATIVE (NEGATIVE); PROTEIN,URINE 100 mg/dL (NEGATIVE); URINE SPECIFIC GRAVITY 1.012; UROBILINOGEN,URINE NEGATIVE mg/dL (<2.0)
[2019-02-12 15:55] LABS: ALBUMIN 4.1 g/dL (3.5-5.0); BLOOD UREA NITROGEN 46 mg/dL (7-20); CALCIUM 10.9 mg/dL (8.4-10.2); CARBON DIOXIDE 28 mmol/L (22-30); PHOSPHORUS 3.7 mg/dL (2.5-4.5); POTASSIUM 3.9 mmol/L (3.6-5.0)
[2019-02-12 15:57] LABS: ANION GAP 14 (5-19); CHLORIDE 107 mmol/L (98-107)
[2019-02-12 16:46] LABS: GLUCOSE 67 mg/dL (75-110)
[2019-02-14 08:37] LABS: CREATININE URINE 125.3 mg/dL (Not Estab.)
[2019-02-15 07:19] LABS: MICROALBUMIN URINE 462.6 ug/mL (Not Estab.)
== END ==
LOC: OD 14:24
PROVIDERS: ATTEND Internal Medicine Nephrology
DX: I12.9 Hypertensive chronic kidney disease with stage 1 through stage 4 chronic kidney disease, or unspecified chronic kidney disease (principal); N18.4 Chronic kidney disease, stage 4 (severe); E11.22 Type 2 diabetes mellitus with diabetic chronic kidney disease; R80.9 Proteinuria, unspecified
CPT/HCPCS: 36415; 80069; 81001; 82043; 82306; 82570; 83970; 85025

== ENCOUNTER → 2019-06-22 | Outpatient (CLI) | payer MEDICARE, MEDICAID ==
[2019-06-22 11:38] LABS: ANION GAP 10 (5-19); BLOOD UREA NITROGEN 51 mg/dL (7-20); CALCIUM 10.8 mg/dL (8.4-10.2); CARBON DIOXIDE 25 mmol/L (22-30); CHLORIDE 110 mmol/L (98-107); GLUCOSE 131 mg/dL (75-110); POTASSIUM 4.1 mmol/L (3.6-5.0)
[2019-06-22 11:44] LABS: ABSOLUTE EOSINOPHILS # (AUTO) 0.1 10^3/uL (0.0-0.6); ABSOLUTE LYMPHOCYTES (AUTO) 0.5 10^3/uL (0.5-4.7); ABSOLUTE MONOCYTES (AUTO) 0.4 10^3/uL (0.1-1.4); ABSOLUTE NEUT (AUTO) 2.9 10^3/uL (1.7-8.2); BASOPHILS % (AUTO) 0.6 % (0-2); EOSINOPHILS % (AUTO) 2.6 % (0-6); HEMATOCRIT 39.9 % (37.9-51.0); HEMOGLOBIN 12.9 g/dL (13.5-17.0); LYMPHOCYTES % (AUTO) 13.2 % (13-45); MEAN CORPUSCULAR HEMOGLOBIN 29.4 pg (27.0-33.4); MEAN CORPUSCULAR HGB CONC 32.4 g/dL (32.0-36.0); MEAN CORPUSCULAR VOLUME 91 fl (80-97); MONOCYTES % (AUTO) 11.1 % (3-13); PLATELET COUNT 119 10^3/uL (150-450); RED BLOOD COUNT 4.41 10^6/uL (4.35-5.55); RED CELL DISTRIBUTION WIDTH 18.9 % (11.5-14.0); SEGMENTED NEUTROPHILS % (AUTO) 72.5 % (42-78); TOTAL CELLS COUNTED % (AUTO) 100 %
[2019-06-23 05:37] LABS: CREATININE URINE 147.9 mg/dL (Not Estab.)
[2019-06-23 08:27] LABS: MICROALBUMIN URINE 1461.6 ug/mL (Not Estab.)
== END ==
LOC: OD 10:49
PROVIDERS: ATTEND Internal Medicine Nephrology
DX: E11.22 Type 2 diabetes mellitus with diabetic chronic kidney disease (principal); I12.9 Hypertensive chronic kidney disease with stage 1 through stage 4 chronic kidney disease, or unspecified chronic kidney disease; N18.4 Chronic kidney disease, stage 4 (severe); D63.1 Anemia in chronic kidney disease; R80.9 Proteinuria, unspecified
CPT/HCPCS: 36415; 80048; 82043; 82570; 83970; 85025

== ENCOUNTER 2019-07-09 14:46 | Inpatient (IN) | payer MEDICARE, MEDICAID ==
[2019-07-09] MEDS ORDERED: DEXTROSE 50%-WATER SYRINGE 25 GM/50 ML DOSE IV PRN (15:30)
[2019-07-09] MEDS ORDERED: DEXTROSE 40% GEL 15 GM TUBE X 2 PO PRN (15:30)
[2019-07-09] MEDS ORDERED: DEXTROSE 40% GEL 15 GM TUBE PO PRN (15:30)
[2019-07-09] MEDS ORDERED: GLUCAGON,HUMAN RECOMB 1 MG INJ IM PRN (15:30)
[2019-07-09] MEDS: INSULIN LISPRO 100 UNIT/ML 3 ML VIAL SUBCUT SCH ×2 (15:40→22:56)
[2019-07-09 15:49] LABS: HEMATOCRIT 42.1 % (37.9-51.0); HEMOGLOBIN 13.5 g/dL (13.5-17.0); MEAN CORPUSCULAR HEMOGLOBIN 29.6 pg (27.0-33.4); MEAN CORPUSCULAR VOLUME 92 fl (80-97); PLATELET COUNT 123 10^3/uL (150-450); RED BLOOD COUNT 4.56 10^6/uL (4.35-5.55); RED CELL DISTRIBUTION WIDTH 19.5 % (11.5-14.0)
--- NOTE | 2019-07-09 16:02 | RADIOLOGY REPORT (SQ) ---
EXAM DESCRIPTION: CHEST 2 VIEWS IMAGES COMPLETED DATE/TIME: 07/09/2019 3:50 pm REASON FOR STUDY: CHF,A-FIB, CAD COMPARISON: 05/07/2018 EXAM PARAMETERS: NUMBER OF VIEWS: two views TECHNIQUE: Digital Frontal and Lateral radiographic views of the chest acquired. RADIATION DOSE: NA LIMITATIONS: none FINDINGS: LUNGS AND PLEURA: Small bilateral pleural effusions, right greater than left. Chronic int erstitial changes with central vascular congestion. No overt alveolar edema. No pneumothorax. MEDIASTINUM AND HILAR STRUCTURES: Stable. HEART AND VASCULAR STRUCTURES: Markedly enlarged, stable. BONES: No acute findings. HARDWARE: Left-sided cardiac pacer with leads overlying right atrium and right ventricle. OTHER: No other significant finding. IMPRESSION: Stable enlarged cardiac silhouette, central vascular congestion and small bilateral effu sions, right greater than left. TECHNICAL DOCUMENTATION: JOB ID: [id number] 2010 [employer]- All Rights Reserved Reading location - IP/workstation name: [email or web address]
[2019-07-09 16:05] LABS: ALBUMIN 3.8 g/dL (3.5-5.0); ALKALINE PHOSPHATASE 66 U/L (38-126); ANION GAP 11 (5-19); ASPARTATE AMINO TRANSFERASE 22 U/L (17-59); BILIRUBIN,DIRECT 0.2 mg/dL (0.0-0.4); BILIRUBIN,TOTAL 0.8 mg/dL (0.2-1.3); BLOOD UREA NITROGEN 62 mg/dL (7-20); CALCIUM 10.1 mg/dL (8.4-10.2); CARBON DIOXIDE 24 mmol/L (22-30); CHLORIDE 106 mmol/L (98-107); CREATINE KINASE 33 U/L (55-170); GLUCOSE 89 mg/dL (75-110); POTASSIUM 3.6 mmol/L (3.6-5.0); TOTAL PROTEIN 6.9 g/dL (6.3-8.2)
[2019-07-09 16:30] LABS: CREATINE KINASE MB 1.89 ng/mL (<4.55)
[2019-07-09] MEDS ORDERED: BISACODYL 10 MG SUPP.RECT PR PRN (16:36)
[2019-07-09 16:42] LABS: ABSOLUTE LYMPHOCYTES# (MANUAL) 0.7 10^3/uL (0.5-4.7); ABSOLUTE MONOCYTES # (MANUAL) 0.4 10^3/uL (0.1-1.4); BASOPHILS % (MANUAL) 1 % (0-2); EOSINOPHILS % (MANUAL) 3 % (0-6); LYMPHOCYTES % (MANUAL) 12 % (13-45); MONOCYTES % (MANUAL) 7 % (3-13); SEGMENTED NEUTROPHILS % (MAN) 77 % (42-78); TOTAL CELLS COUNTED 100
[2019-07-09 16:44] LABS: ANISOCYTOSIS 2+; POIKILOCYTOSIS 2+
[2019-07-09 16:45] LABS: BURR CELLS SLIGHT; OVALOCYTES 2+; PLATELET COMMENT DECREASED; SCHISTOCYTES SLIGHT; TROPONIN I 0.175 ng/mL
[2019-07-09] MEDS ORDERED: ERGOCALCIFEROL (VITAMIN D2) 50000 UNIT (1.25 MG) CAPSULE PO SCH (17:00)
--- NOTE | 2019-07-09 17:07 | PDOC H&P ---
History of Present Illness Admission Date/PCP: 07/09/19 14:46 HIMAERIKA SHELTON Patient complains of: Fatigue and swelling History of Present Illness: SORIN PINEDA is a 79 year old male patient known to my practice who was recently evaluated in the office for leg swelling and concern about his congestive heart failure. He reported compliance with his medication and dietary salt as well as fluid restriction. Daughter reported worsening fatigue to the point that patient required assistance with bathing. There is associated development of blister lesions on his leg, right more than left and associated leg swelling. Daughter reported scrotal swelling that was noted this morning. Patient denied any chest pain but admitted to exertional shortness of breath. Sleep with 2-3 pillow at night. he denied any palpitation, nausea or vomiting. he reported constipation and no benefit from Colace therapy. No abdominal pain. Patient reported feeling more cold than usual een when others are feeling normal or hot. he denied any issue with his urination although daughter reported less voiding despite administration of Furosemide. Importantly , daughter expressed c oncern about patient missing his evening medication administration. Past Medical History Cardiac Medical History: Reports: Congestive Heart Failure, Coronary Artery Disease, Myocardial Infarction, Hyperlipidema Endocrine Medical History: Reports: Diabetes Mellitus Type 2 - Borderline Renal/ Medical History: Reports: End Stage Renal Disease - stage 4 Psychiatric Medical History: Denies: Depression Past Surgical History Past Surgical History: Reports: Coronary Stent, Internal Defibrillator, Orthopedic Surgery - Right clavicle fracture repair, Pacemaker, Other - Head injury requiring metal plate in his skull Social History Smoking Status: Former Smoker Frequency of Alcohol Use: None Hx Recreational Drug Use: No Drugs: None Hx Prescription Drug Abuse: No - Advance Directive Resuscitation Status: Do Not Resuscitate Family History Family History: Reviewed & Not Pertinent Parental Family History Reviewed: Yes Children Family History Reviewed: Yes Sibling(s) Family History Reviewed.: Yes Medication/Allergy Home Medications: Carvedilol [Coreg 6.25 mg Tablet] 6.25 mg PO Q12 07/25/17 Ergocalciferol (Vitamin D2) [Drisdol 50,000 unit (1.25MG) Capsule] 50,000 unit PO [id number] 07/25/17 Glipizide [Glucotrol 5 mg Tablet] 2.5 mg PO DAILY 07/25/17 Patiromer Calcium Sorbitex [Veltassa] 16.8 gm PO Q6AM 07/25/17 Umeclidinium Brm/Vilanterol Tr [Anoro Ellipta 62.5-25 Mcg INH] 1 each IH DAILY 07/20/18 Allopurinol [Zyloprim 100 mg Tablet] 100 mg PO Q3D 07/09/19 Apixaban [Eliquis 2.5 mg Tablet] 2.5 mg PO Q12 07/09/19 Ascorbic Acid [Vitamin C 500 mg Tablet] 500 mg PO DAILY 07/09/19 Atorvastatin Calcium [Lipitor 40 mg Tablet] 40 mg PO QPM 07/09/19 Docusate Sodium [Colace 100 mg Capsule] 100 mg PO BID 07/09/19 Ferrous Sulfate [Feosol 325 mg Tablet] 325 mg PO Q12 07/09/19 Furosemide [Lasix 40 mg Tablet] 40 mg PO BID 07/09/19 Hydralazine HCl [Apresoline 25 mg Tablet] 25 mg PO Q8 07/09/19 Allergies/Adverse Reactions: No Known Allergies Allergy (Verified 07/20/18 15:07) Review of Systems Constitutional: PRESENT: chills, fatigue, weakness. ABSENT: fever(s), headache(s), weight gain, weight loss Eyes: ABSENT: visual disturbances Ears: ABSENT: hearing changes Nose, Mouth, and Throat: ABSENT: headache(s), mouth pain, sore throat, vertigo Cardiovascular: PRESENT: dyspnea on exertion, orthropnea - 2-3 pillows. ABSENT: chest pain, edema, palpitations Respiratory: ABSENT: cough, hemoptysis Gastrointestinal: ABSENT: abdominal pain, constipation, diarrhea, hematemesis, hematochezia, nausea, vomiting Genitourinary: ABSENT: dysuria, hematuria Musculoskeletal: PRESENT: joint swelling - leg swelling Integumentary: PRESENT: rash - blister lesion on legs, right with 2 b. ABSENT: wounds Neurological: ABSENT: abnormal gait, abnormal speech, confusion, dizziness, fo krysta weakness, syncope Psychiatric: ABSENT: anxiety, depression, homidical ideation, suicidal ideation Endocrine: PRESENT: cold intolerance. ABSENT: heat intolerance, polydipsia, polyuria Hematologic/Lymphatic: ABSENT: easy bleeding, easy bruising, lymphadenopathy Physical Exam Vital Signs: Temp Pulse Resp BP Pulse Ox 97.4 F 140 H 18 101/61 91 L 07/09/19 15:11 07/09/19 15:11 07/09/19 15:11 07/09/19 15:11 07/09/19 15:11 General appearance: PRESENT: no acute distress, well-developed, well-nourished Head exam: PRESENT: atraumatic, normocephalic Eye exam: PRESENT: conjunctiva pink, EOMI, PERRLA. ABSENT: scleral icterus Ear exam: PRESENT: normal external ear exam Mouth exam: PRESENT: moist Neck exam: PRESENT: full ROM. ABSENT: carotid bruit, JVD, lymphadenopathy, thyromegaly Respiratory exam: PRESENT: decreased breath sounds - at lung bases, rales - bilaterally Cardiovascular exam: PRESENT: irregular rhythm, +S1, +S2, systolic murmur Murmur grade: 3 Vascular exam: ABSENT: pallor GI/Abdominal exam: PRESENT: normal bowel sounds, soft. ABSENT: distended, guarding, mass, organolmegaly, rebound, tenderness Rectal exam: PRESENT: deferred Extremities exam: PRESENT: pedal edema - 2+ bilaterally Musculoskeletal exam: PRESENT: deformity - due to multiple joints involvement with arthritis Neurological exam: PRESENT: alert, awake, oriented to person, oriented to place, oriented to time, oriented to situation, CN II-XII grossly intact. ABSENT: motor sensory deficit Psychiatric exam: PRESENT: appropriate affect, normal mood. ABSENT: homicidal ideation, suicidal ideation Skin exam: PRESENT: dry, warm Results Laboratory Results: 07/09/19 15:38 07/09/19 07/09/19 15:38 15:38 Seg Neutrophils % Not Reportable Sodium 141.2 Potassium 3.6 Chloride 106 Carbon Dioxide 24 Anion Gap 11 BUN 62 H Creatinine 5.15 H Est GFR ( Amer) 13 L Glucose 89 Calcium 10.1 Total Bilirubin 0.8 AST 22 Alkaline Phosphatase 66 Total Protein 6.9 Albumin 3.8 07/09/19 15:38 Creatine Kinase 33 L Impressions: Chest X-Ray 07/09/19 00:00 IMPRESSION: Stable enlarged cardiac silhouette, central vascular congestion and small bilateral effusions, right greater than left. Assessment & Plan - Diagnosis (1) Acute on chronic combined systolic (congestive) and diastolic (congestive) heart failure Is this a current diagnosis for this admission?: Yes Plan: See admitting attending physician orders for details about care plan. (2) CKD (chronic kidney disease) stage 5, GFR less than 15 ml/min Is this a current diagnosis for this admission?: Yes Plan: See admitting attending physician orders for details about care plan. (3) Chronic a-fib Is this a current diagnosis for this admission?: Yes Plan: See admitting attending physician orders for details about care plan. (4) Diabetes mellitus type 2 with complications Is this a current diagnosis for this admission?: Yes Plan: See admitting attending physician orders for details about care plan. (5) Hypertension Qualifiers: Hypertension type: essential hypertension Qualified Code(s): I10 - Essential (primary) hypertension Is this a current diagnosis for this admission?: Yes Plan: See admitting attending physician orders for details about care plan. (6) CAD (coronary atherosclerotic disease) Qualifiers: Coronary Disease-Associated Artery/Lesion type: unspecified vessel or lesion type Associated angina: without angina Is this a current diagnosis for this admission?: Yes Plan: See admitting attending physician orders for details about care plan. (7) HLD (hyperlipidemia) Qualifiers: Hyperlipidemia type: pure hypercholesterolemia Qualified Code(s): E78.00 - Pure hypercholesterolemia, unspecified Is this a current diagnosis for this admission?: Yes Plan: See admitting attending physician orders for details about care plan. (8) Old [place] (myocardial infarction) Is this a current diagnosis for this admission?: Yes Plan: See admitting attending physician orders for details about care plan. (9) Chronic gout Qualifiers: Gout site: unspecified site Presence of tophus: without tophus Is this a current diagnosis for this admission?: Yes Plan: See admitting attending physician orders for details about care plan. (10) Osteoarthritis involving multiple joints on both sides of body Is this a current diagnosis for this admission?: Yes Plan: See admitting attending physician orders for details about care plan. - Time Time Spent: 50 to 70 Minutes Medications reviewed and adjusted accordingly: Yes Anticipated discharge: Home with Homehealth Within: Other - Inpatient Certification Based on my medical assessment, after consideration of the patient's comorbidities, presenting symptoms, or acuity I expect that the services needed warrant INPATIENT care.: Yes I certify that my determination is in accordance with my understanding of Medicare's requirements for reasonable and necessary INPATIENT services [42 CFR 412.3e].: Yes Medical Necessity: Significant Comorbidiites Make Outpatient Treatment Too Risky, Need Close Monitoring Due to Risk of Patient Decompensation, Need For Continuous Telemetry Monitoring, Risk of Complication if Not Cared For in Hospital, Risk of Diagnosis Which Will Require Inpatient Eval/Care/Monitoring Post Hospital Care: D/C Outreach Director Documentation - Plan Summary Plan Summary: See admitting attending physician orders for details about care plan.
[2019-07-09] MEDS: ATORVASTATIN CALCIUM 40 MG TABLET PO SCH (17:19)
[2019-07-09] MEDS: FUROSEMIDE INJ/PF 40 MG/4 ML SDV IV SCH (17:20)
[2019-07-09] MEDS: PANTOPRAZOLE SODIUM 40 MG TABLET.DR PO SCH (17:20)
[2019-07-09 17:42] LABS: FREE T3 2.27 pg/mL (2.77-5.27); FREE T4 (FREE THYROXINE) 0.93 ng/dL (0.78-2.19)
--- NOTE | 2019-07-09 17:48 | EKG REPORT ---
SEVERITY:- ABNORMAL ECG - ATRIAL FIBRILLATION, V-RATE 52-86 PAIRED VENTRICULAR PREMATURE COMPLEXES ABERRANT COMPLEX, POSSIBLY SUPRAVENTRICULAR RIGHT AXIS DEVIATION LOW VOLTAGE IN FRONTAL LEADS NONSPECIFIC T ABNORMALITIES, LATERAL LEADS : Confirmed by: Taty Yeboah MD 09-Jul-2019 17:48:07
[2019-07-09 17:55] LABS: THYROID STIMULATING HORMONE 8.59 uIU/mL (0.47-4.68)
[2019-07-09] MEDS: HYDRALAZINE HCL 25 MG TABLET PO SCH (22:57)
[2019-07-09] MEDS: CARVEDILOL 6.25 MG TABLET PO SCH (23:00)
[2019-07-09] MEDS: FERROUS SULFATE 325 MG TABLET PO SCH (23:00)
[2019-07-09] MEDS: APIXABAN 2.5 MG TABLET PO SCH (23:00)
[2019-07-10] MEDS: FUROSEMIDE INJ/PF 40 MG/4 ML SDV IV SCH ×2 (05:29→17:42)
[2019-07-10] MEDS: PATIROMER 8.4 GM SUSP PACKET PO SCH ×2 (05:30→06:30)
[2019-07-10] MEDS: HYDRALAZINE HCL 25 MG TABLET PO SCH ×3 (05:43→22:07)
[2019-07-10] MEDS: INSULIN LISPRO 100 UNIT/ML 3 ML VIAL SUBCUT SCH ×4 (07:53→22:07)
[2019-07-10] MEDS: DEXTROSE 50%-WATER SYRINGE 12.5 GM/25 ML DOSE IV PRN (08:10)
[2019-07-10] MEDS: PANTOPRAZOLE SODIUM 40 MG TABLET.DR PO SCH (08:58)
[2019-07-10] MEDS: ASCORBIC ACID 500 MG TABLET PO SCH (09:03)
[2019-07-10] MEDS: APIXABAN 2.5 MG TABLET PO SCH ×2 (09:03→22:07)
[2019-07-10] MEDS: FERROUS SULFATE 325 MG TABLET PO SCH ×2 (09:03→22:07)
[2019-07-10] MEDS: CARVEDILOL 6.25 MG TABLET PO SCH ×2 (09:03→22:07)
[2019-07-10] MEDS: GLIPIZIDE 5 MG TABLET PO SCH (09:04)
[2019-07-10] MEDS ORDERED: PATIROMER 8.4 GM SUSP PACKET PO ONE (09:30)
[2019-07-10] MEDS ORDERED: (PENDING PHARMACY ID) (Umeclidinium Brm/Vilanterol Tr [Anoro Ellipta 62.5-25 Mcg Inh] 1 EA IH SCH (10:00)
--- NOTE | 2019-07-10 10:23 | PDOC CONSULTATION ---
Consultation Consult Date: 07/10/19 Attending physician:: HIMA SHELTON Provider Consulted: SHONNA TORREZ Consult reason:: Dyspnea and leg swelling History of Present Illness Admission Date/PCP: 07/09/19 14:46 HIMA SHELTON Patient complains of: Dyspnea and edema History of Present Illness: SORIN PINEDA is a 79 year old male 79-year-old male with the following active problems 1. Congestive heart failure 2. Systemic hypertension 3. Dyslipidemia 4. Diabetes mellitus 5. Left-sided ICD 6. CKD 7. PCI Patient presented with bilateral lower extremity swelling and worsening breathing and PND consistent with acute decompensated congestive heart failure. Since admission to the hospital patient reports improvement in symptoms. At the time of my evaluation this morning patient does not report any dyspnea. His PND is also improved. He is sitting on the bed with feet dangling without any discomfort. He does not smoke cigarettes presently. Former smoker Reports ICD implantation. Unsure about make of device. Past Medical History Cardiac Medical History: Reports: Congestive Heart Failure, Coronary Artery Disease, Myocardial Infarction, Hyperlipidema Endocrine Medical History: Reports: Diabetes Mellitus Type 2 - Borderline Renal/ Medical History: Reports: End Stage Renal Disease - stage 4 Psychiatric Medical History: Denies: Depression Past Surgical History Past Surgical History: Reports: Coronary Stent, Internal Defibrillator, Orthopedic Surgery - Right clavicle fracture repair, Pacemaker, Other - Head injury requiring metal plate in his skull Social History Smoking Status: Former Smoker Frequency of Alcohol Use: None Hx Recreational Drug Use: No Drugs: None Hx Prescription Drug Abuse: No - Advance Directive Resuscitation Status: Do Not Resuscitate Family History Family History: Reviewed & Not Pertinent Parental Family History Reviewed: Yes - No familial illnesses reported to me Children Family History Reviewed: NA Sibling(s) Family History Reviewed.: NA Medication/Allergy Home Medications: Carvedilol [Coreg 6.25 mg Tablet] 6.25 mg PO Q12 07/25/17 Ergocalciferol (Vitamin D2) [Drisdol 50,000 unit (1.25MG) Capsule] 50,000 unit PO [id number] 07/25/17 Glipizide [Glucotrol 5 mg Tablet] 2.5 mg PO DAILY 07/25/17 Patiromer Calcium Sorbitex [Veltassa] 16.8 gm PO Q6AM 07/25/17 Umeclidinium Brm/Vilanterol Tr [Anoro Ellipta 62.5-25 Mcg INH] 1 each IH DAILY 07/20/18 Allopurinol [Zyloprim 100 mg Tablet] 100 mg PO Q3D 07/09/19 Apixaban [Eliquis 2.5 mg Tablet] 2.5 mg PO Q12 07/09/19 Ascorbic Acid [Vitamin C 500 mg Tablet] 500 mg PO DAILY 07/09/19 Atorvastatin Calcium [Lipitor 40 mg Tablet] 40 mg PO QPM 07/09/19 Docusate Sodium [Colace 100 mg Capsule] 100 mg PO BID 07/09/19 Ferrous Sulfate [Feosol 325 mg Tablet] 325 mg PO Q12 07/09/19 Furosemide [Lasix 40 mg Tablet] 40 mg PO BID 07/09/19 Hydralazine HCl [Apresoline 25 mg Tablet] 25 mg PO Q8 07/09/19 Allergies/Adverse Reactions: No Known Allergies Allergy (Verified 07/20/18 15:07) Review of Systems Constitutional: PRESENT: as per HPI Cardiovascular: PRESENT: dyspnea on exertion, edema, orthropnea Respiratory: PRESENT: dyspnea Neurological: PRESENT: as per HPI Endocrine: PRESENT: as per HPI Physical Exam Vital Signs: Temp Pulse Resp BP Pulse Ox 97.4 F 79 18 116/62 91 L 07/10/19 07:52 07/10/19 07:52 07/10/19 07:52 07/10/19 07:52 07/10/19 07:52 Intake & Output 07/09/19 07/10/19 07/11/19 06:59 06:59 06:59 Intake Total 630 Output Total 425 Balance 205 Weight 81.5 kg General appearance: PRESENT: no acute distress, cooperative, obese, well- developed, well-nourished Head exam: PRESENT: atraumatic, normocephalic Eye exam: PRESENT: conjunctiva pink, EOMI Neck exam: PRESENT: JVD Respiratory exam: PRESENT: crackles, decreased breath sounds, symmetrical, unlabored Cardiovascular exam: PRESENT: irregular rhythm, +S1, +S2, other - Left-sided ICD implant site is well-healed Pulses: PRESENT: normal radial pulses GI/Abdominal exam: PRESENT: soft Rectal exam: PRESENT: deferred Neurological exam: PRESENT: alert, awake, oriented to person, oriented to place, oriented to time Psychiatric exam: PRESENT: appropriate affect Skin exam: PRESENT: dry, intact Results Laboratory Results: 07/09/19 15:38 07/09/19 15:38 07/09/19 07/09/19 07/09/19 15:38 15:38 15:38 WBC 6.0 RBC 4.56 Hgb 13.5 Hct 42.1 MCV 92 MCH 29.6 MCHC 32.0 RDW 19.5 H Plt Count 123 L Seg Neutrophils % Not Reportable Sodium 141.2 Potassium 3.6 Chloride 106 Carbon Dioxide 24 Anion Gap 11 BUN 62 H Creatinine 5.15 H Est GFR ( Amer) 13 L Glucose 89 Calcium 10.1 Total Bilirubin 0.8 AST 22 Alkaline Phosphatase 66 Total Protein 6.9 Albumin 3.8 TSH 8.59 H Free T4 0.93 Thyroxine (T4) Free T3 pg/mL 2.27 L 07/09/19 15:38 WBC RBC Hgb Hct MCV MCH MCHC RDW Plt Count Seg Neutrophils % Sodium Potassium Chloride Carbon Dioxide Anion Gap BUN Creatinine Est GFR ( Amer) Glucose Calcium Total Bilirubin AST Alkaline Phosphatase Total Protein Albumin TSH Free T4 Thyroxine (T4) 5.59 Free T3 pg/mL 07/09/19 07/09/19 15:38 15:38 Creatine Kinase 33 L CK-MB (CK-2) 1.89 Troponin I 0.175 NT-Pro-B Natriuret Pep [id number] H EKG Comments: Chest x-ray. Independently reviewed by me. 07/09/2019 Left-sided dual coil ICD appears to be a dual-chamber system. Cardiomegaly noted. Central vascular congestion. Small bilateral pleural effusions. Twelve-lead EKG 07/09/2019. Independently reviewed by me. Atrial fibrillation. Ventricular rate 73 bpm. Troponin 0 0.175 Impressions: Chest X-Ray 07/09/19 00:00 IMPRESSION: Stable enlarged cardiac silhouette, central vascular congestion and small bilateral effusions, right greater than left. Status: Image reviewed by me - Cardiomegaly, pulmonary vascular congestion, small bilateral pleural effusions, left-sided dual-chamber dual coil ICD system. Assessment & Plan - Diagnosis (1) Hypertension Qualifiers: Hypertension type: essential hypertension Qualified Code(s): I10 - Essential (primary) hypertension Is this a current diagnosis for this admission?: Yes Plan: Continue to monitor blood pressure as we diurese. (2) Chronic a-fib Is this a current diagnosis for this admission?: Yes Plan: Rate control atrial fibrillation Continue rate control measures Systemic anticoagulation as present. Apixaban 2.5 mg twice daily (3) CHF (congestive heart failure) Qualifiers: Heart failure type: combined systolic and diastolic Heart failure ch ronicity: acute on chronic Qualified Code(s): I50.43 - Acute on chronic combined systolic (congestive) and diastolic (congestive) heart failure Is this a current diagnosis for this admission?: Yes Plan: Acute decompensated likely systolic congestive heart failure Agree with current use of diuretics Beta-nixon Watch volume status closely Patient has improved since admission Continue carvedilol 6.25 mg twice daily Continue hydralazine 25 mg p.o. 3 times daily Continue furosemide intravenously with plans to switch to oral (4) ICD (implantable cardioverter-defibrillator) in place Is this a current diagnosis for this admission?: Yes Plan: Dual-chamber ICD system in place left upper chest wall. - Notes Notes: Patient is well-managed presently. We will continue diuresis with symptomatic improvement Plans to switch to oral diuretic regimen within 24 to 48 hours Continue carvedilol Continue hydralazine Watch electrolytes including potassium and magnesium as we diurese.
--- NOTE | 2019-07-10 12:26 | PDOC PROGRESS REPORT ---
Subjective Progress Note for:: 07/10/19 Subjective:: Patient was seen by the bedside, he was admitted for the management of acute decompensated chronic systolic heart failure with background of type 2 diabetes mellitus complicated with chronic kidney disease stage IV. Patient said he feels better since admission from yesterday, he has less shortness of breath. He was also seen earlier by the network project manager. Reason For Visit: ACUTE ON CHRONIC CHF,CHRONIC A-FIB,DM TYPE 2,HTN,C Physical Exam Vital Signs: Temp Pulse Resp BP Pulse Ox 98.0 F 58 L 18 101/66 96 07/10/19 11:31 07/10/19 11:31 07/10/19 11:31 07/10/19 11:31 07/10/19 11:31 Intake & Output 07/09/19 07/10/19 07/11/19 06:59 06:59 06:59 Intake Total 630 480 Output Total 425 500 Balance 205 -20 Weight 81.5 kg General appearance: PRESENT: no acute distress Eye exam: PRESENT: PERRLA Respiratory exam: PRESENT: clear to auscultation amelia Cardiovascular exam: PRESENT: +S1, +S2 Murmur grade: 3 GI/Abdominal exam: PRESENT: soft Neurological exam: PRESENT: alert Results Laboratory Results: 07/09/19 15:38 07/09/19 15:38 07/09/19 07/09/19 07/09/19 15:38 15:38 15:38 WBC 6.0 RBC 4.56 Hgb 13.5 Hct 42.1 MCV 92 MCH 29.6 MCHC 32.0 RDW 19.5 H Plt Count 123 L Seg Neutrophils % Not Reportable Sodium 141.2 Potassium 3.6 Chloride 106 Carbon Dioxide 24 Anion Gap 11 BUN 62 H Creatinine 5.15 H Est GFR ( Amer) 13 L Glucose 89 Calcium 10.1 Total Bilirubin 0.8 AST 22 Alkaline Phosphatase 66 Total Protein 6.9 Albumin 3.8 TSH 8.59 H Free T4 0.93 Thyroxine (T4) Free T3 pg/mL 2.27 L 07/09/19 15:38 WBC RBC Hgb Hct MCV MCH MCHC RDW Plt Count Seg Neutrophils % Sodium Potassium Chloride Carbon Dioxide Anion Gap BUN Creatinine Est GFR ( Amer) Glucose Calcium Total Bilirubin AST Alkaline Phosphatase Total Protein Albumin TSH Free T4 Thyroxine (T4) 5.59 Free T3 pg/mL 07/09/19 07/09/19 15:38 15:38 Creatine Kinase 33 L CK-MB (CK-2) 1.89 Troponin I 0.175 NT-Pro-B Natriuret Pep [id number] H Impressions: Chest X-Ray 07/09/19 00:00 IMPRESSION: Stable enlarged cardiac silhouette, central vascular congestion and small bilateral effusions, right greater than left. Assessment & Plan - Diagnosis (1) Acute systolic (congestive) heart failure Is this a current diagnosis for this admission?: Yes Plan: Patient will continue present line of management, on diuretic follow labs (2) Diabetes mellitus type 2 with complications Is this a current diagnosis for this admission?: Yes (3) Chronic a-fib Is this a current diagnosis for this admission?: Yes Plan: Continue systemic anticoagulant (4) CKD (chronic kidney disease) stage 4, GFR 15-29 ml/min Is this a current diagnosis for this admission?: Yes - Time Time Spent with patient: 35 or more minutes Level of Care: IMCU Medications reviewed and adjusted accordingly: Yes
[2019-07-10] MEDS: ATORVASTATIN CALCIUM 40 MG TABLET PO SCH (17:42)
[2019-07-10 21:14] LABS: ABSOLUTE EOSINOPHILS # (AUTO) 0.1 10^3/uL (0.0-0.6); ABSOLUTE LYMPHOCYTES (AUTO) 0.4 10^3/uL (0.5-4.7); ABSOLUTE MONOCYTES (AUTO) 0.4 10^3/uL (0.1-1.4); ABSOLUTE NEUT (AUTO) 3.1 10^3/uL (1.7-8.2); BASOPHILS % (AUTO) 0.4 % (0-2); EOSINOPHILS % (AUTO) 1.6 % (0-6); HEMATOCRIT 39.4 % (37.9-51.0); LYMPHOCYTES % (AUTO) 8.9 % (13-45); MEAN CORPUSCULAR HEMOGLOBIN 29.7 pg (27.0-33.4); MEAN CORPUSCULAR HGB CONC 32.9 g/dL (32.0-36.0); MEAN CORPUSCULAR VOLUME 90 fl (80-97); MONOCYTES % (AUTO) 10.4 % (3-13); PLATELET COUNT 122 10^3/uL (150-450); RED BLOOD COUNT 4.38 10^6/uL (4.35-5.55); RED CELL DISTRIBUTION WIDTH 19.1 % (11.5-14.0); SEGMENTED NEUTROPHILS % (AUTO) 78.7 % (42-78); TOTAL CELLS COUNTED % (AUTO) 100 %
[2019-07-10 21:39] LABS: PHOSPHORUS 4.4 mg/dL (2.5-4.5)
[2019-07-11] MEDS: HYDRALAZINE HCL 25 MG TABLET PO SCH ×3 (05:11→21:33)
[2019-07-11] MEDS: FUROSEMIDE INJ/PF 40 MG/4 ML SDV IV SCH ×2 (05:11→17:47)
[2019-07-11] MEDS: PATIROMER 8.4 GM SUSP PACKET PO SCH (05:13)
[2019-07-11 05:54] LABS: ANION GAP 9 (5-19); BLOOD UREA NITROGEN 64 mg/dL (7-20); CALCIUM 9.7 mg/dL (8.4-10.2); CARBON DIOXIDE 27 mmol/L (22-30); CHLORIDE 105 mmol/L (98-107); GLUCOSE 88 mg/dL (75-110); POTASSIUM 3.2 mmol/L (3.6-5.0)
[2019-07-11] MEDS: INSULIN LISPRO 100 UNIT/ML 3 ML VIAL SUBCUT SCH ×4 (08:12→22:51)
[2019-07-11] MEDS: FERROUS SULFATE 325 MG TABLET PO SCH ×2 (10:28→21:32)
[2019-07-11] MEDS: APIXABAN 2.5 MG TABLET PO SCH ×2 (10:28→21:32)
[2019-07-11] MEDS: GLIPIZIDE 5 MG TABLET PO SCH (10:28)
[2019-07-11] MEDS: CARVEDILOL 6.25 MG TABLET PO SCH ×2 (10:28→21:31)
[2019-07-11] MEDS: ASCORBIC ACID 500 MG TABLET PO SCH (10:28)
[2019-07-11] MEDS: PANTOPRAZOLE SODIUM 40 MG TABLET.DR PO SCH (10:28)
--- NOTE | 2019-07-11 15:08 | PDOC PROGRESS REPORT ---
Subjective Progress Note for:: 07/11/19 Subjective:: No new complaints Reason For Visit: ACUTE ON CHRONIC CHF,CHRONIC A-FIB,DM TYPE 2,HTN,C Physical Exam Vital Signs: Temp Pulse Resp BP Pulse Ox 98.1 F 59 L 18 92/64 L 92 07/11/19 14:52 07/11/19 14:52 07/11/19 14:52 07/11/19 14:52 07/11/19 14:52 Intake & Output 07/10/19 07/11/19 07/12/19 06:59 06:59 06:59 Intake Total 630 780 120 Output Total 425 1150 200 Balance 205 -370 -80 Weight 81.5 kg General appearance: PRESENT: no acute distress Eye exam: PRESENT: PERRLA Respiratory exam: PRESENT: clear to auscultation amelia Cardiovascular exam: PRESENT: +S1, +S2 Murmur grade: 3 GI/Abdominal exam: PRESENT: soft Neurological exam: PRESENT: alert Results Laboratory Results: 07/10/19 21:02 07/11/19 05:00 07/10/19 07/10/19 07/11/19 21:02 21:02 05:00 WBC 4.0 RBC 4.38 Hgb 13.0 L Hct 39.4 MCV 90 MCH 29.7 MCHC 32.9 RDW 19.1 H Plt Count 122 L Seg Neutrophils % 78.7 H Sodium 141.2 Potassium 3.2 L Chloride 105 Carbon Dioxide 27 Anion Gap 9 BUN 64 H Creatinine 5.06 H Est GFR ( Amer) 13 L Glucose 88 Calcium 9.7 Phosphorus 4.4 Magnesium 1.7 07/09/19 07/09/19 15:38 15:38 Creatine Kinase 33 L CK-MB (CK-2) 1.89 Troponin I 0.175 NT-Pro-B Natriuret Pep [id number] H Impressions: Chest X-Ray 07/09/19 00:00 IMPRESSION: Stable enlarged cardiac silhouette, central vascular congestion and small bilateral effusions, right greater than left. Assessment & Plan - Diagnosis (1) Acute systolic (congestive) heart failure Is this a current diagnosis for this admission?: Yes Plan: Patient will continue present line of management, on diuretic follow labs (2) Diabetes mellitus type 2 with complications Is this a current diagnosis for this admission?: Yes (3) Chronic a-fib Is this a current diagnosis for this admission?: Yes (4) CKD (chronic kidney disease) stage 4, GFR 15-29 ml/min Is this a current diagnosis for this admission?: Yes - Time Time Spent with patient: 25-34 minutes Level of Care: IMCU
[2019-07-11] MEDS: ATORVASTATIN CALCIUM 40 MG TABLET PO SCH (17:47)
[2019-07-12] MEDS: FUROSEMIDE INJ/PF 40 MG/4 ML SDV IV SCH ×2 (05:55→17:28)
[2019-07-12] MEDS: HYDRALAZINE HCL 25 MG TABLET PO SCH ×2 (05:55→13:23)
[2019-07-12] MEDS: PATIROMER 8.4 GM SUSP PACKET PO SCH (06:03)
[2019-07-12] MEDS: INSULIN LISPRO 100 UNIT/ML 3 ML VIAL SUBCUT SCH ×4 (09:34→23:43)
--- NOTE | 2019-07-12 09:49 | PDOC PROGRESS REPORT ---
Subjective Progress Note for:: 07/12/19 Subjective:: Patient seen and examined. Resting in chair. No distress noted. Reason For Visit: ACUTE ON CHRONIC CHF,CHRONIC A-FIB,DM TYPE 2,HTN,C Physical Exam Vital Signs: Temp Pulse Resp BP Pulse Ox 97.5 F 72 25 H 112/55 L 95 07/12/19 08:03 07/12/19 08:03 07/12/19 08:03 07/12/19 08:03 07/12/19 08:03 Intake & Output 07/11/19 07/12/19 07/13/19 06:59 06:59 06:59 Intake Total 780 460 Output Total 1150 975 Balance -370 -515 Weight 82.4 kg General appearance: PRESENT: no acute distress, cooperative, obese, well- developed, well-nourished Head exam: PRESENT: atraumatic, normocephalic Eye exam: PRESENT: conjunctiva pink, EOMI Mouth exam: PRESENT: moist Respiratory exam: PRESENT: decreased breath sounds, symmetrical, unlabored Cardiovascular exam: PRESENT: irregular rhythm, +S1, +S2 Pulses: PRESENT: normal radial pulses GI/Abdominal exam: PRESENT: soft Rectal exam: PRESENT: deferred Musculoskeletal exam: PRESENT: normal inspection Skin exam: PRESENT: dry, intact Additional comments: Left upper chest wall ICD implant site Results Laboratory Results: 07/10/19 21:02 07/11/19 05:00 07/09/19 07/09/19 15:38 15:38 Creatine Kinase 33 L CK-MB (CK-2) 1.89 Troponin I 0.175 NT-Pro-B Natriuret Pep [id number] H Impressions: Chest X-Ray 07/09/19 00:00 IMPRESSION: Stable enlarged cardiac silhouette, central vascular congestion and small bilateral effusions, right greater than left. Assessment & Plan - Diagnosis (1) Hypertension Qualifiers: Hypertension type: essential hypertension Qualified Code(s): I10 - Essential (primary) hypertension Is this a current diagnosis for this admission?: Yes Plan: Watch blood pressure as we continue to diurese. (2) Chronic a-fib Is this a current diagnosis for this admission?: Yes Plan: Rate controlled. Continue present therapy Systemic anticoagulation with apixaban. (3) CHF (congestive heart failure) Qualifiers: Heart failure type: combined systolic and diastolic Heart failure chronicity: acute on chronic Qualified Code(s): I50.43 - Acute on chronic combined systolic (congestive) and diastolic (congestive) heart failure Is this a current diagnosis for this admission?: Yes Plan: Clinically appears to be improving with current therapy including fluid restriction and diuretics However given profound CKD there may be a ceiling effect on diuretic efficacy. Good improvement is noted however in terms of symptoms. (4) ICD (implantable cardioverter-defibrillator) in place Is this a current diagnosis for this admission?: Yes Plan: ICD implant site is intact
[2019-07-12] MEDS: ASCORBIC ACID 500 MG TABLET PO SCH (09:52)
[2019-07-12] MEDS: CARVEDILOL 6.25 MG TABLET PO SCH ×2 (09:52→23:41)
[2019-07-12] MEDS: GLIPIZIDE 5 MG TABLET PO SCH (09:52)
[2019-07-12] MEDS: APIXABAN 2.5 MG TABLET PO SCH ×2 (09:52→23:40)
[2019-07-12] MEDS: FERROUS SULFATE 325 MG TABLET PO SCH ×2 (09:52→23:40)
[2019-07-12] MEDS: PANTOPRAZOLE SODIUM 40 MG TABLET.DR PO SCH (09:52)
[2019-07-12 13:56] LABS: ARTERIAL BLOOD BASE EXCESS -5.8 mmol/L; ARTERIAL BLOOD HCO3 26.6 mmol/L (20-24); ARTERIAL BLOOD O2 SATURATION 96.1 % (94-98); ARTERIAL BLOOD PO2 115.6 mmHg (80-100); ARTERIAL BLOOD TOTAL CO2 29.5 mmol/L (23-27)
[2019-07-12 13:57] LABS: ARTERIAL BLOOD FIO2 2L
[2019-07-12 13:58] LABS: ARTERIAL BLOOD PH 7.08 (7.35-7.45)
[2019-07-12 14:03] LABS: ALBUMIN 3.6 g/dL (3.5-5.0); ALKALINE PHOSPHATASE 82 U/L (38-126); ANION GAP 11 (5-19); ASPARTATE AMINO TRANSFERASE 22 U/L (17-59); BILIRUBIN,DIRECT 0.2 mg/dL (0.0-0.4); BILIRUBIN,TOTAL 0.6 mg/dL (0.2-1.3); BLOOD UREA NITROGEN 68 mg/dL (7-20); CALCIUM 9.5 mg/dL (8.4-10.2); CARBON DIOXIDE 25 mmol/L (22-30); CHLORIDE 106 mmol/L (98-107); GLUCOSE 119 mg/dL (75-110); POTASSIUM 3.7 mmol/L (3.6-5.0); TOTAL PROTEIN 6.6 g/dL (6.3-8.2)
[2019-07-12 15:23] LABS: APPEARANCE,URINE CLEAR; BILIRUBIN,URINE NEGATIVE (NEGATIVE); COLOR,URINE YELLOW; GLUCOSE, URINE NEGATIVE (NEGATIVE); KETONES,URINE NEGATIVE (NEGATIVE); LEUKOCYTE ESTERASE,URINE NEGATIVE (NEGATIVE); NITRITE,URINE NEGATIVE (NEGATIVE); PROTEIN,URINE 30 mg/dL (NEGATIVE); URINE SPECIFIC GRAVITY 1.009; UROBILINOGEN,URINE NEGATIVE mg/dL (<2.0)
--- NOTE | 2019-07-12 15:26 | PDOC CONSULTATION ---
Consultation Consult Date: 07/12/19 Provider Consulted: PRAVEENA BARROSO Consult reason:: CKD5 w/ fluid overload History of Present Illness Admission Date/PCP: 07/09/19 14:46 HIMA NIKITA History of Present Illness: SORIN PINEDA is a 79 year old male with history of CHF, A-fib, anemia, CKD4, DM2 and HTN came to the ER with complaints of fluid overload and SOB. His daughter had him come to the hospital when he started to have increased swelling around the legs and scrotal area. He had been taking his normal medications and following a proper diet. He was not able to tell me exactly when the swelling started to happen. Daughter did report to the ER staff that he did have worsening fatigue that impeded ADLs. Patient denied any chest pain when he first came to the ER. He was SOB with orthopnea. Per what the patients daughter told the admitting Physician he did have a decrease with his urination even with Furosemide. In the ER his creatinine was found to be at 5.0, hemoglobin with with in normal limits, BNP was 39,500. Chest x-ray showed vascular congestion, enlarged heart and small bilateral pleural effusions. He was admitted to the hospital, seen by cardiology, and started on IV furosemide 20mg BID. Today he appears to be comfortably sitting in his chair. Patient is only answering yes or no question. He normally is able to give some history. He appeared a bit altered sitting in his chair. History that was obtained came from notes and the patient. Due to his current mental status the accuracy of the history is unable to be determined. Past Medical History Cardiac Medical History: Reports: Coronary Artery Disease, Hyperlipidemia, Hypertension-primary, Myocardial Infarction Endocrine Medical History: Reports: Diabetes Mellitus Type 2 - Borderline Renal/ Medical History: Reports: End Stage Renal Disease - stage 4 Psychiatric Medical History: Denies: Depression Past Surgical History Past Surgical History: Reports: Coronary Stent, Internal Defibrillator, Orthopedic Surgery - Right clavicle fracture repair, Pacemaker, Other - Head injury requiring metal plate in his skull Social History Smoking Status: Former Smoker Frequency of Alcohol Use: None Hx Recreational Drug Use: No Drugs: None Hx Prescription Drug Abuse: No - Advance Directive Resuscitation Status: Do Not Resuscitate Family History Parental Family History Reviewed: No Children Family History Reviewed: No - -patient was altered Sibling(s) Family History Reviewed.: Unknown Medication/Allergy Home Medications: Carvedilol [Coreg 6.25 mg Tablet] 6.25 mg PO Q12 07/25/17 Ergocalciferol (Vitamin D2) [Drisdol 50,000 unit (1.25MG) Capsule] 50,000 unit PO [id number] 07/25/17 Glipizide [Glucotrol 5 mg Tablet] 2.5 mg PO DAILY 07/25/17 Patiromer Calcium Sorbitex [Veltassa] 16.8 gm PO Q6AM 07/25/17 Umeclidinium Brm/Vilanterol Tr [Anoro Ellipta 62.5-25 Mcg INH] 1 each IH DAILY 07/20/18 Allopurinol [Zyloprim 100 mg Tablet] 100 mg PO Q3D 07/09/19 Apixaban [Eliquis 2.5 mg Tablet] 2.5 mg PO Q12 07/09/19 Ascorbic Acid [Vitamin C 500 mg Tablet] 500 mg PO DAILY 07/09/19 Atorvastatin Calcium [Lipitor 40 mg Tablet] 40 mg PO QPM 07/09/19 Docusate Sodium [Colace 100 mg Capsule] 100 mg PO BID 07/09/19 Ferrous Sulfate [Feosol 325 mg Tablet] 325 mg PO Q12 07/09/19 Furosemide [Lasix 40 mg Tablet] 40 mg PO BID 07/09/19 Hydralazine HCl [Apresoline 25 mg Tablet] 25 mg PO Q8 07/09/19 Allergies/Adverse Reactions: No Known Allergies Allergy (Verified 07/20/18 15:07) Review of Systems ROS unobtainable: Other - -questionable accuracy with his AMS Constitutional: PRESENT: fatigue. ABSENT: chills, fever(s) Eyes: ABSENT: visual disturbances Cardiovascular: PRESENT: dyspnea on exertion, edema, orthropnea. ABSENT: chest pain, palpitations Respiratory: PRESENT: cough, dyspnea. ABSENT: sputum Gastrointestinal: ABSENT: nausea, vomiting Genitourinary: PRESENT: difficulty urinating. ABSENT: dysuria Musculoskeletal: PRESENT: muscle weakness. ABSENT: deformity Neurological: PRESENT: confusion. ABSENT: numbness, weakness Physical Exam Vital Signs: Temp Pulse Resp BP Pulse Ox 97.5 F 71 26 H 94/53 L 98 07/12/19 11:04 07/12/19 11:04 07/12/19 11:04 07/12/19 11:04 07/12/19 11:04 Intake & Output 07/11/19 07/12/19 07/13/19 06:59 06:59 06:59 Intake Total 780 460 Output Total 1152 975 Balance -370 -515 Weight 82.4 kg General appearance: PRESENT: no acute distress, well-developed, well-nourished, other - -appeared sleepy and altered Eye exam: PRESENT: PERRLA. ABSENT: scleral icterus Mouth exam: PRESENT: moist, neck supple Neck exam: ABSENT: JVD - -unable to be determined due to his ability cooperate, tracheal deviation Respiratory exam: PRESENT: crackles, rales. ABSENT: clear to auscultation amelia, wheezes Cardiovascular exam: PRESENT: RRR, +S1, +S2 GI/Abdominal exam: PRESENT: distended, soft. ABSENT: guarding, tenderness Extremities exam: PRESENT: pedal edema, +1 edema. ABSENT: tenderness, +2 edema Musculoskeletal exam: PRESENT: normal inspection. ABSENT: tenderness Neurological exam: PRESENT: altered, oriented to person, oriented to place, other - -asterixis was unable to be determined due to his mental status. ABSENT: awake Skin exam: PRESENT: dry, intact, warm. ABSENT: cyanosis Results Laboratory Results: 07/10/19 21:02 07/12/19 13:33 07/12/19 07/12/19 07/12/19 13:33 13:33 13:45 Carbonic Acid 2.80 H HCO3/H2CO3 Ratio 9:1 ABG pH 7.08 L* ABG pCO2 93.0 H* ABG pO2 115.6 H ABG HCO3 26.6 H ABG O2 Saturation 96.1 ABG Base Excess -5.8 FiO2 2L Sodium Cancelled 141.6 Potassium Cancelled 3.7 Chloride Cancelled 106 Carbon Dioxide Cancelled 25 Anion Gap Cancelled 11 BUN Cancelled 68 H Creatinine Cancelled 5.53 H Est GFR ( Amer) Cancelled 12 L Est GFR (Non-Af Amer) Cancelled Glucose Cancelled 119 H Calcium Cancelled 9.5 Magnesium 1.7 Total Bilirubin 0.6 AST 22 Alkaline Phosphatase 82 Total Protein 6.6 Albumin 3.6 07/09/19 07/09/19 15:38 15:38 Creatine Kinase 33 L CK-MB (CK-2) 1.89 Troponin I 0.175 NT-Pro-B Natriuret Pep [id number] H Impressions: Chest X-Ray 07/09/19 00:00 IMPRESSION: Stable enlarged cardiac silhouette, central vascular congestion and small bilateral effusions, right greater than left. Assessment & Plan - Diagnosis (1) Acute kidney injury superimposed on chronic kidney disease Plan: Patient's creatinine is up to 5.5 from his baseline of 4.0-4.3. According to his nurse, Anil, he has not had much urinary output. Cause of ETIENNE is multifactorial, originally from CHF, other factors include the bp dropping to the 90s systolic and maybe lower. Also possible urinary obstruction. Will continue with furosemide at 20mg BID. Will have a cortez catheter placed for stricter I's&O's. Having his hydralazine held for now. Carvedilol may need to be held depending on how the bp looks later tonight. Will also look to get a renal ultrasound. Follow up with labs tomorrow morning. (2) AMS (altered mental status) Plan: Possibly due to CO2 retention, will get a blood gas. Other possibilities include a UTI, elevated ammonia levels, hypoperfusion due to a low bp. Will get a UA with reflex culture, ammonia level and hold hydralazine, possibly carvedilol. Less likely from low blood sugars since they are in the mid 100s. Blood gas came back showing severe respiratory acidosis. Patient had wishes to not be intubated so he was placed on bipap. reassess blood gas in a few ours. (3) Acute respiratory acidosis Plan: Blood gas came back showing severe respiratory acidosis, pH of 7.08. Patient had wishes to not be intubated so he was placed on bipap. reassess blood gas in a few ours. (4) Acute systolic (congestive) heart failure Is this a current diagnosis for this admission?: Yes Plan: continue on furosemide 20mg IV BID. Will also look to add a cortez catheter for stricter I's&O's. (5) CKD (chronic kidney disease) stage 4, GFR 15-29 ml/min Is this a current diagnosis for this admission?: Yes Plan: normal baseline is 4.0 to 4.3 (6) Diabetes mellitus type 2 with complications Is this a current diagnosis for this admission?: Yes Plan: looks to be controlled (7) Dyspnea Qualifiers: Dyspnea type: shortness of breath Qualified Code(s): R06.02 - Shortness of breath; R06.00 - Dyspnea, unspecified; R06.01 - Orthopnea Plan: see above diagnosis (8) Hypertension Qualifiers: Hypertension type: essential hypertension Qualified Code(s): I10 - Essential (primary) hypertension Is this a current diagnosis for this admission?: Yes Plan: low end of normal, holding hydralazine for now.
--- NOTE | 2019-07-12 16:30 | RADIOLOGY REPORT (SQ) ---
EXAM DESCRIPTION: U/S RETROPERITON (RENAL/AORTA) IMAGES COMPLETED DATE/TIME: 07/12/2019 3:36 pm REASON FOR STUDY: urinary retention COMPARISON: None. TECHNIQUE: Dynamic and static grayscale images acquired of the kidneys and bladder and recorded on P ACS. Additional selected color Doppler and spectral images recorded. LIMITATIONS: Evaluation is limited due to patient's inability to position in self in an matter that would optimize the acoustic windows. FINDINGS: RIGHT KIDNEY: The right kidney measures 13.7 cm in length. The echogenicity of the renal parenchyma is increased and the cortex is thinned. There is a partially exophytic cyst that projects from the interpolar portion of the kidney and measures 7.1 x 7.9 x 6.9 cm. There is no hydronephros is or calcification. LEFT KIDNEY: The left kidney measures 12.4 cm in length. The echogenicity of the renal parenchyma i s increased and the cortex is thinned. There is a cyst in the upper pole of the kidney that measures 2.7 x 3.1 x 2.8 cm. There is no hydronephrosis or calcification. BLADDER: There is a Harris catheter within the urinary bladder. OTHER FINDINGS: No other finding. IMPRESSION: 1. Increased echogenicity of the renal parenchyma and thinning of the renal cortices - c linical correlation for chronic medical renal disease is recommended. 2. No hydronephrosis. 3. Harris catheter within the urinary bladder. TECHNICAL DOCUMENTATION: JOB ID: [id number] 2010 [employer]- All Rights Reserved Reading location - IP/workstation name: [email or web address]
[2019-07-12 16:49] LABS: ARTERIAL BLOOD BASE EXCESS -2.7 mmol/L; ARTERIAL BLOOD H2CO3 2.67 mmol/L (1.05-1.35); ARTERIAL BLOOD HCO3 28.8 mmol/L (20-24); ARTERIAL BLOOD O2 SATURATION 89.6 % (94-98); ARTERIAL BLOOD PO2 76.1 mmHg (80-100); ARTERIAL BLOOD TOTAL CO2 31.5 mmol/L (23-27)
[2019-07-12 16:54] LABS: ARTERIAL BLOOD FIO2 25%; ARTERIAL BLOOD PCO2 88.8 mmHg (35-45); ARTERIAL BLOOD PH 7.13 (7.35-7.45)
[2019-07-12] MEDS: ATORVASTATIN CALCIUM 40 MG TABLET PO SCH (17:15)
--- NOTE | 2019-07-12 19:45 | PDOC PROGRESS REPORT ---
Subjective Progress Note for:: 07/12/19 Subjective:: Patient's assigned nurse staff reported that he has been more sleepy and needed sternal rub to wake him up. His orientation remain satisfactory to person and place when awaken. His ABG revealed significant respiratory acidosis necessitating commencement of BiPAP support. Patient is a DNR with instruction that he does not want to be intubated. No reported chest pain. No fever or chills. No coughing. Reason For Visit: ACUTE ON CHRONIC CHF,CHRONIC A-FIB,DM TYPE 2,HTN,C Physical Exam Vital Signs: Temp Pulse Resp BP Pulse Ox 97.5 F 72 25 H 112/55 L 95 07/12/19 08:03 07/12/19 08:03 07/12/19 08:03 07/12/19 08:03 07/12/19 08:03 Intake & Output 07/11/19 07/12/19 07/13/19 06:59 06:59 06:59 Intake Total 780 460 Output Total 1150 975 Balance -370 -515 Weight 82.4 kg General appearance: PRESENT: severe distress - on BIPAP support Head exam: PRESENT: atraumatic, normocephalic Eye exam: PRESENT: conjunctiva pink. ABSENT: scleral icterus Respiratory exam: PRESENT: prolonged expiratory phas - at lung bases Cardiovascular exam: PRESENT: RRR, +S1, +S2, systolic murmur Murmur grade: 3 Vascular exam: ABSENT: pallor GI/Abdominal exam: PRESENT: normal bowel sounds, soft. ABSENT: distended, guarding, mass, organolmegaly, rebound, tenderness Extremities exam: PRESENT: pedal edema - chronic but significantly improved Neurological exam: PRESENT: altered - with severe respiratory acidosis Skin exam: PRESENT: dry, warm, other - improved blister lesion on left leg Results Laboratory Results: 07/10/19 21:02 07/11/19 05:00 07/09/19 07/09/19 15:38 15:38 Creatine Kinase 33 L CK-MB (CK-2) 1.89 Troponin I 0.175 NT-Pro-B Natriuret Pep [id number] H Impressions: Chest X-Ray 07/09/19 00:00 IMPRESSION: Stable enlarged cardiac silhouette, central vascular congestion and small bilateral effusions, right greater than left. Assessment & Plan - Diagnosis (1) Acute on chronic combined systolic (congestive) and diastolic (congestive) heart failure Is this a current diagnosis for this admission?: Yes Plan: Continue current medication management with reduction in IV Lasix to 20 mg q 12 hours. (2) CKD (chronic kidney disease) stage 5, GFR less than 15 ml/min Is this a current diagnosis for this admission?: Yes Plan: Continue current medication and supportive therapy. Renal US revealed severe medicorenal changes without hydronephrosis. (3) Chronic a-fib Is this a current diagnosis for this admission?: Yes Plan: Continue Eliquis therapy. (4) Diabetes mellitus type 2 with complications Is this a current diagnosis for this admission?: Yes (5) Hypertension Qualifiers: Hypertension type: essential hypertension Qualified Code(s): I10 - Essential (primary) hypertension Is this a current diagnosis for this admission?: Yes (6) CAD (coronary atherosclerotic disease) Qualifiers: Coronary Disease-Associated Artery/Lesion type: unspecified vessel or lesion type Associated angina: without angina Is this a current diagnosis for this admission?: Yes (7) HLD (hyperlipidemia) Qualifiers: Hyperlipidemia type: pure hypercholesterolemia Qualified Code(s): E78.00 - Pure hypercholesterolemia, unspecified Is this a current diagnosis for this admission?: Yes (8) Old AK (myocardial infarction) Is this a current diagnosis for this admission?: Yes (9) Chronic gout Qualifiers: Gout site: unspecified site Presence of tophus: without tophus Is this a current diagnosis for this admission?: Yes (10) Osteoarthritis involving multiple joints on both sides of body Is this a current diagnosis for this admission?: Yes (11) AMS (altered mental status) Is this a current diagnosis for this admission?: Yes Plan: Continue BiPAP support. Repeat ABG in AM. (12) Acute respiratory acidosis Is this a current diagnosis for this admission?: Yes Plan: Continue BiPAP support. Repeat ABG in AM. - Time Time Spent with patient: 25-34 minutes Level of Care: IMCU Medications reviewed and adjusted accordingly: Yes Anticipated discharge: Home with Homehealth Within: Other - Inpatient Certification Based on my medical assessment, after consideration of the patient's comorbidities, presenting symptoms, or acuity I expect that the services needed warrant INPATIENT care.: Yes I certify that my determination is in accordance with my understanding of Medicare's requirements for reasonable and necessary INPATIENT services [42 CFR 412.3e].: Yes Medical Necessity: Significant Comorbidiites Make Outpatient Treatment Too Risky, Need Close Monitoring Due to Risk of Patient Decompensation, Need For Continuous Telemetry Monitoring, Risk of Complication if Not Cared For in Hospital, Risk of Diagnosis Which Will Require Inpatient Eval/Care/Monitoring 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 Cardiology and renal team input appreciated.
[2019-07-13] MEDS: FUROSEMIDE INJ/PF 20 MG/2 ML SDV IV SCH ×3 (06:24→18:14)
[2019-07-13] MEDS: PATIROMER 8.4 GM SUSP PACKET PO SCH (06:30)
[2019-07-13 07:09] LABS: ARTERIAL BLOOD BASE EXCESS -4.5 mmol/L; ARTERIAL BLOOD FIO2 30%; ARTERIAL BLOOD HCO3 24.4 mmol/L (20-24); ARTERIAL BLOOD O2 SATURATION 94.8 % (94-98); ARTERIAL BLOOD PCO2 63.1 mmHg (35-45); ARTERIAL BLOOD PH 7.21 (7.35-7.45); ARTERIAL BLOOD PO2 89.7 mmHg (80-100); ARTERIAL BLOOD TOTAL CO2 26.4 mmol/L (23-27)
[2019-07-13 07:20] LABS: ANION GAP 11 (5-19); BLOOD UREA NITROGEN 68 mg/dL (7-20); CALCIUM 9.3 mg/dL (8.4-10.2); CARBON DIOXIDE 24 mmol/L (22-30); CHLORIDE 106 mmol/L (98-107); GLUCOSE 72 mg/dL (75-110); POTASSIUM 3.3 mmol/L (3.6-5.0)
[2019-07-13] MEDS: INSULIN LISPRO 100 UNIT/ML 3 ML VIAL SUBCUT SCH ×4 (08:19→21:34)
[2019-07-13] MEDS: PANTOPRAZOLE SODIUM 40 MG TABLET.DR PO SCH (08:34)
[2019-07-13] MEDS: CARVEDILOL 6.25 MG TABLET PO SCH (10:27)
[2019-07-13] MEDS: ASCORBIC ACID 500 MG TABLET PO SCH (10:30)
[2019-07-13] MEDS: APIXABAN 2.5 MG TABLET PO SCH ×2 (10:31→21:39)
[2019-07-13] MEDS: GLIPIZIDE 5 MG TABLET PO SCH (10:31)
[2019-07-13] MEDS: FERROUS SULFATE 325 MG TABLET PO SCH ×2 (10:31→21:39)
--- NOTE | 2019-07-13 11:04 | PDOC PROGRESS REPORT ---
Subjective Progress Note for:: 07/13/19 Subjective:: He was seen lying in bed with BiPAP on. At the time he denied any shortness of breath or chest pain. He appears to be back to baseline for his mental status. Patient's blood gas is slowly improving with BiPAP. Urine output is improving since having a Harris catheter placed. Patient denies any signs or symptoms of uremia. Appetite is good Reason For Visit: ACUTE ON CHRONIC CHF,CHRONIC A-FIB,DM TYPE 2,HTN,C Physical Exam Vital Signs: Temp Pulse Resp BP Pulse Ox 98.0 F 96 22 H 107/55 L 98 07/13/19 08:07 07/13/19 08:07 07/13/19 08:17 07/13/19 08:07 07/13/19 08:07 Intake & Output 07/12/19 07/13/19 07/14/19 06:59 06:59 06:59 Intake Total 460 210 Output Total 975 775 Balance -515 -565 Weight 82.4 kg 88 kg General appearance: PRESENT: no acute distress, well-developed, well-nourished Mouth exam: PRESENT: moist, neck supple Neck exam: ABSENT: JVD, tracheal deviation Respiratory exam: PRESENT: crackles, rhonchi, unlabored. ABSENT: accessory muscle use, clear to auscultation amelia, wheezes Cardiovascular exam: PRESENT: RRR, +S1, +S2 GI/Abdominal exam: PRESENT: distended, soft. ABSENT: guarding, tenderness Extremities exam: PRESENT: pedal edema, +1 edema. ABSENT: tenderness, +2 edema Musculoskeletal exam: PRESENT: normal inspection. ABSENT: tenderness Neurological exam: PRESENT: alert, awake, oriented to person, oriented to place, oriented to time, oriented to situation Skin exam: PRESENT: dry, intact, warm. ABSENT: cyanosis Results Laboratory Results: 07/10/19 21:02 07/13/19 05:42 07/11/19 07/12/19 07/12/19 05:00 13:33 13:33 Carbonic Acid HCO3/H2CO3 Ratio ABG pH ABG pCO2 ABG pO2 ABG HCO3 ABG O2 Saturation ABG Base Excess FiO2 Sodium Cancelled 141.6 Potassium Cancelled 3.7 Chloride Cancelled 106 Carbon Dioxide Cancelled 25 Anion Gap Cancelled 11 BUN Cancelled 68 H Creatinine Cancelled 5.53 H Est GFR ( Amer) Cancelled 12 L Est GFR (Non-Af Amer) Cancelled Glucose Cancelled 119 H Calcium Cancelled 9.5 Magnesium 1.7 Total Bilirubin 0.6 AST 22 Alkaline Phosphatase 82 Ammonia Total Protein 6.6 Albumin 3.6 Reverse T3 36.7 H Urine Color Urine Appearance Urine pH Ur Specific [place] Urine Protein Urine Glucose (UA) Urine Ketones Urine Blood Urine Nitrite Ur Leukocyte Esterase Urine WBC (Auto) Urine RBC (Auto) 07/12/19 07/12/19 07/12/19 13:45 14:20 14:55 Carbonic Acid 2.80 H HCO3/H2CO3 Ratio 9:1 ABG pH 7.08 L* ABG pCO2 93.0 H* ABG pO2 115.6 H ABG HCO3 26.6 H ABG O2 Saturation 96.1 ABG Base Excess -5.8 FiO2 2L Sodium Potassium Chloride Carbon Dioxide Anion Gap BUN Creatinine Est GFR ( Amer) Est GFR (Non-Af Amer) Glucose Calcium Magnesium Total Bilirubin AST Alkaline Phosphatase Ammonia 16.4 Total Protein Albumin Reverse T3 Urine Color YELLOW Urine Appearance CLEAR Urine pH 5.0 Ur Specific [place] 1.009 Urine Protein 30 H Urine Glucose (UA) NEGATIVE Urine Ketones NEGATIVE Urine Blood SMALL H Urine Nitrite NEGATIVE Ur Leukocyte Esterase NEGATIVE Urine WBC (Auto) 1 Urine RBC (Auto) 17 07/12/19 07/13/19 07/13/19 16:27 05:42 05:50 Carbonic Acid 2.67 H 1.90 H HCO3/H2CO3 Ratio 10:1 12:1 ABG pH 7.13 L* 7.21 L ABG pCO2 88.8 H* 63.1 H ABG pO2 76.1 L 89.7 ABG HCO3 28.8 H 24.4 H ABG O2 Saturation 89.6 L 94.8 ABG Base Excess -2.7 -4.5 FiO2 25% 30% Sodium 141.4 Potassium 3.3 L Chloride 106 Carbon Dioxide 24 Anion Gap 11 BUN 68 H Creatinine 5.21 H Est GFR ( Amer) 13 L Est GFR (Non-Af Amer) Glucose 72 L Calcium 9.3 Magnesium Total Bilirubin AST Alkaline Phosphatase Ammonia Total Protein Albumin Reverse T3 Urine Color Urine Appearance Urine pH Ur Specific [place] Urine Protein Urine Glucose (UA) Urine Ketones Urine Blood Urine Nitrite Ur Leukocyte Esterase Urine WBC (Auto) Urine RBC (Auto) 07/09/19 07/09/19 15:38 15:38 Creatine Kinase 33 L CK-MB (CK-2) 1.89 Troponin I 0.175 NT-Pro-B Natriuret Pep [id number] H Impressions: Chest X-Ray 07/09/19 00:00 IMPRESSION: Stable enlarged cardiac silhouette, central vascular congestion and small bilateral effusions, right greater than left. Renal Ultrasound 07/12/19 00:00 IMPRESSION: 1. Increased echogenicity of the renal parenchyma and thinning of the renal cortices - clinical correlation for chronic medical renal disease is recommended. 2. No hydronephrosis. 3. Harris catheter within the urinary bladder. Assessment & Plan - Diagnosis (1) Acute kidney injury superimposed on chronic kidney disease Plan: Nonoliguric, looks to be slightly improving with stopping blood pressure medicines and having a Harris catheter placed. Continue with IV furosemide and continue to hold blood pressure medicines. Discussed dialysis and the risks of dialysis with the patient. He is willing to do dialysis if needed. Will read dress dialysis if it comes to it. We need to probably also talk to the daughter about dialysis. (2) AMS (altered mental status) Is this a current diagnosis for this admission?: Yes Plan: Related to hypercapnia, currently on BiPAP and improving. Continue with BiPAP and checking blood gases. Patient does not want to be intubated per his DNR. (3) Acute respiratory acidosis Is this a current diagnosis for this admission?: Yes Plan: Improving with BiPAP (4) Acute systolic (congestive) heart failure Is this a current diagnosis for this admission?: Yes Plan: Continue with furosemide and Harris catheter, ins and outs continue to be negative. (5) CKD (chronic kidney disease) stage 4, GFR 15-29 ml/min Is this a current diagnosis for this admission?: Yes Plan: Baseline looks to be 4-4.3. (6) Diabetes mellitus type 2 with complications Is this a current diagnosis for this admission?: Yes (7) Dyspnea Qualifiers: Dyspnea type: shortness of breath Qualified Code(s): R06.02 - Shortness of breath; R06.00 - Dyspnea, unspecified; R06.01 - Orthopnea Plan: Currently on BiPAP and improving (8) Hypertension Qualifiers: Hypertension type: essential hypertension Qualified Code(s): I10 - Essential (primary) hypertension Is this a current diagnosis for this admission?: Yes Plan: All blood pressure medicines are on hold as of right now (9) Hypokalemia Plan: Most likely due to Potassium loss using furosemide. We will look to give him two 20 mEq Klor-Con tablets. Then will look to retest the potassium
[2019-07-13] MEDS: POTASSIUM CHLORIDE 10 MEQ TABLET.ER PO SCH ×2 (12:43→21:39)
--- NOTE | 2019-07-13 12:56 | PDOC PROGRESS REPORT ---
Subjective Progress Note for:: 07/13/19 Subjective:: Patient seen and examined. Resting in chair. Reason For Visit: ACUTE ON CHRONIC CHF,CHRONIC A-FIB,DM TYPE 2,HTN,C Physical Exam Vital Signs: Temp Pulse Resp BP Pulse Ox 98.0 F 96 22 H 107/55 L 98 07/13/19 08:07 07/13/19 08:07 07/13/19 08:17 07/13/19 08:07 07/13/19 08:07 Intake & Output 07/12/19 07/13/19 07/14/19 06:59 06:59 06:59 Intake Total 460 210 Output Total 975 775 Balance -515 -565 Weight 82.4 kg 88 kg General appearance: PRESENT: no acute distress Head exam: PRESENT: atraumatic, normocephalic Respiratory exam: PRESENT: symmetrical, tachypnea Cardiovascular exam: PRESENT: irregular rhythm, +S1, +S2 GI/Abdominal exam: PRESENT: distended Extremities exam: PRESENT: pedal edema Neurological exam: PRESENT: altered Skin exam: PRESENT: dry, normal color Results Laboratory Results: 07/10/19 21:02 07/13/19 05:42 07/11/19 07/12/19 07/12/19 05:00 13:33 13:33 Carbonic Acid HCO3/H2CO3 Ratio ABG pH ABG pCO2 ABG pO2 ABG HCO3 ABG O2 Saturation ABG Base Excess FiO2 Sodium Cancelled 141.6 Potassium Cancelled 3.7 Chloride Cancelled 106 Carbon Dioxide Cancelled 25 Anion Gap Cancelled 11 BUN Cancelled 68 H Creatinine Cancelled 5.53 H Est GFR ( Amer) Cancelled 12 L Est GFR (Non-Af Amer) Cancelled Glucose Cancelled 119 H Calcium Cancelled 9.5 Magnesium 1.7 Total Bilirubin 0.6 AST 22 Alkaline Phosphatase 82 Ammonia Total Protein 6.6 Albumin 3.6 Reverse T3 36.7 H Urine Color Urine Appearance Urine pH Ur Specific [place] Urine Protein Urine Glucose (UA) Urine Ketones Urine Blood Urine Nitrite Ur Leukocyte Esterase Urine WBC (Auto) Urine RBC (Auto) 07/12/19 07/12/19 07/12/19 13:45 14:20 14:55 Carbonic Acid 2.80 H HCO3/H2CO3 Ratio 9:1 ABG pH 7.08 L* ABG pCO2 93.0 H* ABG pO2 115.6 H ABG HCO3 26.6 H ABG O2 Saturation 96.1 ABG Base Excess -5.8 FiO2 2L Sodium Potassium Chloride Carbon Dioxide Anion Gap BUN Creatinine Est GFR ( Amer) Est GFR (Non-Af Amer) Glucose Calcium Magnesium Total Bilirubin AST Alkaline Phosphatase Ammonia 16.4 Total Protein Albumin Reverse T3 Urine Color YELLOW Urine Appearance CLEAR Urine pH 5.0 Ur Specific [place] 1.009 Urine Protein 30 H Urine Glucose (UA) NEGATIVE Urine Ketones NEGATIVE Urine Blood SMALL H Urine Nitrite NEGATIVE Ur Leukocyte Esterase NEGATIVE Urine WBC (Auto) 1 Urine RBC (Auto) 17 07/12/19 07/13/19 07/13/19 16:27 05:42 05:50 Carbonic Acid 2.67 H 1.90 H HCO3/H2CO3 Ratio 10:1 12:1 ABG pH 7.13 L* 7.21 L ABG pCO2 88.8 H* 63.1 H ABG pO2 76.1 L 89.7 ABG HCO3 28.8 H 24.4 H ABG O2 Saturation 89.6 L 94.8 ABG Base Excess -2.7 -4.5 FiO2 25% 30% Sodium 141.4 Potassium 3.3 L Chloride 106 Carbon Dioxide 24 Anion Gap 11 BUN 68 H Creatinine 5.21 H Est GFR ( Amer) 13 L Est GFR (Non-Af Amer) Glucose 72 L Calcium 9.3 Magnesium Total Bilirubin AST Alkaline Phosphatase Ammonia Total Protein Albumin Reverse T3 Urine Color Urine Appearance Urine pH Ur Specific [place] Urine Protein Urine Glucose (UA) Urine Ketones Urine Blood Urine Nitrite Ur Leukocyte Esterase Urine WBC (Auto) Urine RBC (Auto) 07/09/19 07/09/19 15:38 15:38 Creatine Kinase 33 L CK-MB (CK-2) 1.89 Troponin I 0.175 NT-Pro-B Natriuret Pep [id number] H EKG Comments: Telemetry shows atrial fibrillation with controlled ventricular response Impressions: Chest X-Ray 07/09/19 00:00 IMPRESSION: Stable enlarged cardiac silhouette, central vascular congestion and small bilateral effusions, right greater than left. Renal Ultrasound 07/12/19 00:00 IMPRESSION: 1. Increased echogenicity of the renal parenchyma and thinning of the renal cortices - clinical correlation for chronic medical renal disease is recommended. 2. No hydronephrosis. 3. Harris catheter within the urinary bladder. Assessment & Plan - Diagnosis (1) Hypertension Qualifiers: Hypertension type: essential hypertension Qualified Code(s): I10 - Essential (primary) hypertension Is this a current diagnosis for this admission?: Yes Plan: Watch blood pressure as we continue to diurese. (2) Chronic a-fib Is this a current diagnosis for this admission?: Yes Plan: Rate controlled. Continue present therapy Systemic anticoagulation with apixaban. (3) CHF (congestive heart failure) Qualifiers: Heart failure type: combined systolic and diastolic Heart failure chronicity: acute on chronic Qualified Code(s): I50.43 - Acute on chronic combined systolic (congestive) and diastolic (congestive) heart failure Is this a current diagnosis for this admission?: Yes Plan: Clinically appears to be improving with current therapy including fluid restriction and diuretics However given profound CKD there may be a ceiling effect on diuretic efficacy. Good improvement is noted however in terms of symptoms. Appreciate nephrology input There has been worsening in renal function (4) ICD (implantable cardioverter-defibrillator) in place Is this a current diagnosis for this admission?: Yes Plan: Site [facility]
[2019-07-13] MEDS: ATORVASTATIN CALCIUM 40 MG TABLET PO SCH (18:13)
--- NOTE | 2019-07-13 19:36 | PDOC PROGRESS REPORT ---
Subjective Progress Note for:: 07/13/19 Subjective:: Patient remain on BiPAP support. More lucid and appropriate in responses. His blood pressure remain a concern due to inability to administer his medication and possible worsening of his kidney function and outcome. Urine output so far today has been limited Reason For Visit: ACUTE ON CHRONIC CHF,CHRONIC A-FIB,DM TYPE 2,HTN,C Physical Exam Vital Signs: Temp Pulse Resp BP Pulse Ox 97.6 F 56 L 14 92/47 L 98 07/13/19 16:48 07/13/19 16:48 07/13/19 16:48 07/13/19 16:48 07/13/19 16:48 Intake & Output 07/12/19 07/13/19 07/14/19 06:59 06:59 06:59 Intake Total 460 210 Output Total 975 775 Balance -515 -565 Weight 82.4 kg 88 kg Physical Exam: General appearance: PRESENT: severe distress - on BIPAP support Head exam: PRESENT: atraumatic, normocephalic Eye exam: PRESENT: conjunctiva pink. ABSENT: pallor, scleral icterus Respiratory exam: PRESENT: prolonged expiratory phas - at lung bases Cardiovascular exam: PRESENT: RRR, +S1, +S2, systolic murmur Murmur grade: 3 GI/Abdominal exam: PRESENT: normal bowel sounds, soft. ABSENT: distended, guarding, mass, organomegaly, rebound, tenderness : Indwelling Harris catheter in situ. Extremities exam: PRESENT: pedal edema - chronic but significantly improved Neurological exam: PRESENT: altered - with severe respiratory acidosis Skin exam: PRESENT: dry, warm, other - improved blister lesion on left leg Murmur grade: 3 Results Laboratory Results: 07/10/19 21:02 07/13/19 05:42 07/11/19 07/13/19 07/13/19 05:00 05:42 05:50 Carbonic Acid 1.90 H HCO3/H2CO3 Ratio 12:1 ABG pH 7.21 L ABG pCO2 63.1 H ABG pO2 89.7 ABG HCO3 24.4 H ABG O2 Saturation 94.8 ABG Base Excess -4.5 FiO2 30% Sodium 141.4 Potassium 3.3 L Chloride 106 Carbon Dioxide 24 Anion Gap 11 BUN 68 H Creatinine 5.21 H Est GFR ( Amer) 13 L Glucose 72 L Calcium 9.3 Reverse T3 36.7 H 07/09/19 07/09/19 15:38 15:38 Creatine Kinase 33 L CK-MB (CK-2) 1.89 Troponin I 0.175 NT-Pro-B Natriuret Pep [id number] H Impressions: Chest X-Ray 07/09/19 00:00 IMPRESSION: Stable enlarged cardiac silhouette, central vascular congestion and small bilateral effusions, right greater than left. Renal Ultrasound 07/12/19 00:00 IMPRESSION: 1. Increased echogenicity of the renal parenchyma and thinning of the renal cortices - clinical correlation for chronic medical renal disease is recommended. 2. No hydronephrosis. 3. Harris catheter within the urinary bladder. Assessment & Plan - Diagnosis (1) Acute on chronic combined systolic (congestive) and diastolic (congestive) heart failure Is this a current diagnosis for this admission?: Yes (2) CKD (chronic kidney disease) stage 5, GFR less than 15 ml/min Is this a current diagnosis for this admission?: Yes (3) Chronic a-fib Is this a current diagnosis for this admission?: Yes (4) Diabetes mellitus type 2 with complications Is this a current diagnosis for this admission?: Yes (5) Hypertension Qualifiers: Hypertension type: essential hypertension Qualified Code(s): I10 - Essential (primary) hypertension Is this a current diagnosis for this admission?: Yes (6) CAD (coronary atherosclerotic disease) Qualifiers: Coronary Disease-Associated Artery/Lesion type: unspecified vessel or lesion type Associated angina: without angina Is this a current diagnosis for this admission?: Yes (7) HLD (hyperlipidemia) Qualifiers: Hyperlipidemia type: pure hypercholesterolemia Qualified Code(s): E78.00 - Pure hypercholesterolemia, unspecified Is this a current diagnosis for this admission?: Yes (8) Old [place] (myocardial infarction) Is this a current diagnosis for this admission?: Yes (9) Chronic gout Qualifiers: Gout site: unspecified site Presence of tophus: without tophus Is this a current diagnosis for this admission?: Yes (10) Osteoarthritis involving multiple joints on both sides of body Is this a current diagnosis for this admission?: Yes (11) AMS (altered mental status) Is this a current diagnosis for this admission?: Yes (12) Acute respiratory acidosis Is this a current diagnosis for this admission?: Yes - Time Time Spent with patient: 25-34 minutes Level of Care: IMCU Medications reviewed and adjusted accordingly: Yes Anticipated discharge: Home with Homehealth Within: Other - Inpatient Certification Based on my medical assessment, after consideration of the patient's comorbidities, presenting symptoms, or acuity I expect that the services needed warrant INPATIENT care.: Yes I certify that my determination is in accordance with my understanding of Medicare's requirements for reasonable and necessary INPATIENT services [42 CFR 412.3e].: Yes Medical Necessity: Significant Comorbidiites Make Outpatient Treatment Too Risky, Need Close Monitoring Due to Risk of Patient Decompensation, Need For Continuous Telemetry Monitoring, Risk of Complication if Not Cared For in Hospital, Risk of Diagnosis Which Will Require Inpatient Eval/Care/Monitoring 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 We will obtain complete transthoracic echocardiogram to evaluation his current cardiac function. If his LVEF is low patient may benefit from dobutamine infusion support to augment his cardiac function and improve his blood pressure as well as kidney function. His overall prognosis remain guarded. He will remain on DNR status.
--- NOTE | 2019-07-13 21:00 | XCELERA REPORT ---
[address] [address] Transthoracic Echocardiogram Report Name: SORIN PINEDA Age: 79 yrs Gender: Male : 1940 Patient Status: Inpatient Patient Location: [address] [place], [place] [address]A Study Date: 07/13/2019 07:54 PM History: CHF CKD Height: 64 in Weight: 194 lb BSA: 1.9 m2 Procedure: A complete two-dimensional transthoracic echocardiogram was performed (2D, M-mode, spectral and color flow Doppler). The study was technically difficult with many images being suboptimal in quality. Reason For Study: Acute on chronic combined CHF Previous Evaluation: No previous studies were available. History: CHF. Ordering Physician: HIMA SHELTON Performed By: Colleen Bryant Interpretation Summary Left ventricular systolic function is moderate to severely reduced. The Ejection Fraction estimate is 20-25% The right ventricular systolic function is moderately reduced. There is a moderate amount of mitral regurgitation There is no aortic valve stenosis There is a mild to moderate amount of tricuspid regurgitation There is moderate pulmonary hypertension by echo Minimal pericardial effusion. MMode/2D Measurements & Calculations RVDd: 3.7 cm LVIDd: 6.8 cm FS: 15.6 % Ao root diam: 3.5 cm IVSd: 1.3 cm LVIDs: 5.7 cm EDV(Teich): 239.1 ml Ao root area: 9.9 cm2 LVPWd: 0.97 cm ESV(Teich): 162.7 ml LA dimension: 5.2 cm EF(Teich): 32.0 % Doppler Measurements & Calculations MV E max ashwini: MV P1/2t max ashwini: Ao V2 max: LV V1 max P.8 cm/sec 115.2 cm/sec 143.2 cm/sec 4.0 mmHg MV A max ashwini: MV P1/2t: 88.5 msec Ao max P.2 mmHgLV V1 max: 26.4 cm/sec MVA(P1/2t): 2.5 cm2 100.4 cm/sec MV E/A: 3.4 MV dec slope: 381.5 cm/sec2 MV dec time: 0.17 sec PA V2 max: TR max ashwini: MV P1/2t-pr_phl: 80.2 cm/sec 377.3 cm/sec 88.5 msec PA max PG: TR max P.0 mmHg 2.6 mmHg Left Ventricle The left ventricle is moderately to severly dilated. There is moderate to severe concentric left ventricular hypertrophy. Left ventricular systolic function is moderate to severely reduced. The Ejection Fraction estimate is 20-25%. LV diastolic function could not be adequately assessed. There is moderate to severe global hypokinesis of the left ventricle. Right Ventricle The right ventricle is mild to moderately dilated. There is a pacemaker lead in the right ventricle. The right ventricular systolic function is moderately reduced. Atria The right atrium is mildly dilated. There is a catheter/pacemaker lead seen in the right atrium. The left atrium is moderately dilated. Mitral Valve The mitral valve leaflets are sclerotic, but show no functional abnormalities. There is a moderate amount of mitral regurgitation. Aortic Valve The aortic valve is sclerotic, but shows no functional abnormality. The aortic valve is mildly calcified. There is no aortic valve stenosis. No aortic regurgitation is present. Tricuspid Valve The tricuspid valve is not well visualized, but is grossly normal. There is a mild to moderate amount of tricuspid regurgitation. Right ventricular systolic pressure is estimated to be elevated at 40-50mmHg. There is moderate pulmonary hypertension by echo. Best estimated right ventricular systolic pressure is elevated at >60mmHg. Pulmonic Valve The pulmonic valve is normal in structure and function. Great Vessels The aortic root is normal size. The inferior vena cava appeared normal and decreased < 50% with respiration (RAP 10-15 mmHg). Effusions Minimal pericardial effusion. : HIMA SHELTON Anil
[2019-07-13] MEDS: DOBUTAMINE HCL/D5W 500 MG/250 ML RTUINJ IV PRN (22:10)
[2019-07-14] MEDS: PATIROMER 8.4 GM SUSP PACKET PO SCH (05:05)
[2019-07-14] MEDS: FUROSEMIDE INJ/PF 20 MG/2 ML SDV IV SCH (05:15)
[2019-07-14] MEDS: INSULIN LISPRO 100 UNIT/ML 3 ML VIAL SUBCUT SCH ×4 (08:03→21:56)
[2019-07-14] MEDS: PANTOPRAZOLE SODIUM 40 MG TABLET.DR PO SCH (08:26)
[2019-07-14 09:38] LABS: ANION GAP 11 (5-19); BLOOD UREA NITROGEN 77 mg/dL (7-20); CALCIUM 9.4 mg/dL (8.4-10.2); CARBON DIOXIDE 25 mmol/L (22-30); CHLORIDE 105 mmol/L (98-107); GLUCOSE 89 mg/dL (75-110)
[2019-07-14] MEDS: FERROUS SULFATE 325 MG TABLET PO SCH ×2 (09:45→22:10)
[2019-07-14] MEDS: APIXABAN 2.5 MG TABLET PO SCH ×2 (09:47→22:10)
[2019-07-14] MEDS: ASCORBIC ACID 500 MG TABLET PO SCH (09:47)
[2019-07-14] MEDS: GLIPIZIDE 5 MG TABLET PO SCH (09:47)
[2019-07-14 10:04] LABS: ARTERIAL BLOOD BASE EXCESS -0.6 mmol/L; ARTERIAL BLOOD H2CO3 2.43 mmol/L (1.05-1.35); ARTERIAL BLOOD HCO3 29.7 mmol/L (20-24); ARTERIAL BLOOD O2 SATURATION 64.1 % (94-98); ARTERIAL BLOOD PO2 42.2 mmHg (80-100); ARTERIAL BLOOD TOTAL CO2 32.2 mmol/L (23-27)
[2019-07-14 10:06] LABS: ARTERIAL BLOOD FIO2 30%
[2019-07-14 10:11] LABS: ARTERIAL BLOOD PCO2 80.6 mmHg (35-45); ARTERIAL BLOOD PH 7.19 (7.35-7.45)
--- NOTE | 2019-07-14 11:22 | PDOC PROGRESS REPORT ---
Subjective Progress Note for:: 07/14/19 Subjective:: Patient continues to look better with his bipap. He claims to be doing well. He currently denies any s/s of uremia. Denies any chest pain or sob. Patient was recently start on dobutamine to help with cardiac output. Reason For Visit: ACUTE ON CHRONIC CHF,CHRONIC A-FIB,DM TYPE 2,HTN,C Physical Exam Vital Signs: Temp Pulse Resp BP Pulse Ox 98.1 F 75 15 141/89 H 93 07/14/19 03:15 07/14/19 10:00 07/14/19 08:00 07/14/19 10:00 07/14/19 08:00 Intake & Output 07/13/19 07/14/19 07/15/19 06:59 06:59 06:59 Intake Total 210 744 Output Total 775 520 Balance -565 224 Weight 88 kg 82.3 kg General appearance: PRESENT: no acute distress, well-developed, well-nourished Mouth exam: PRESENT: dry mucosa, neck supple Neck exam: ABSENT: JVD, tracheal deviation Respiratory exam: PRESENT: clear to auscultation amelia. ABSENT: crackles, rales, rhonchi, wheezes Cardiovascular exam: PRESENT: RRR, +S1, +S2 GI/Abdominal exam: PRESENT: distended, soft. ABSENT: guarding, tenderness Extremities exam: ABSENT: pedal edema, tenderness, +1 edema, +2 edema Musculoskeletal exam: PRESENT: normal inspection. ABSENT: tenderness Neurological exam: PRESENT: alert, awake, oriented to person, oriented to place, oriented to time, oriented to situation Skin exam: PRESENT: dry, intact, warm. ABSENT: cyanosis Results Laboratory Results: 07/10/19 21:02 07/14/19 09:00 07/14/19 07/14/19 09:00 09:58 Carbonic Acid 2.43 H HCO3/H2CO3 Ratio 12:1 ABG pH 7.19 L* ABG pCO2 80.6 H* ABG pO2 42.2 L ABG HCO3 29.7 H ABG O2 Saturation 64.1 L ABG Base Excess -0.6 FiO2 30% Sodium 141.2 Potassium 4.0 Chloride 105 Carbon Dioxide 25 Anion Gap 11 BUN 77 H Creatinine 5.97 H Est GFR ( Amer) 11 L Glucose 89 Calcium 9.4 07/09/19 07/09/19 15:38 15:38 Creatine Kinase 33 L CK-MB (CK-2) 1.89 Troponin I 0.175 NT-Pro-B Natriuret Pep 11415 H Impressions: Chest X-Ray 07/09/19 00:00 IMPRESSION: Stable enlarged cardiac silhouette, central vascular congestion and small bilateral effusions, right greater than left. Renal Ultrasound 07/12/19 00:00 IMPRESSION: 1. Increased echogenicity of the renal parenchyma and thinning of the renal cortices - clinical correlation for chronic medical renal disease is recommended. 2. No hydronephrosis. 3. Harris catheter within the urinary bladder. Assessment & Plan - Diagnosis (1) Acute kidney injury superimposed on chronic kidney disease Plan: nonoliguric, creatinine elevated up and so did BUN. Patient actually looks to be on the dryside at this time. Will put a hold on the lasix for now. Will let him orally rehydrate, he may need a small amount of fluids if the creatinine does not go down tomorrow. Reassess with labs tomorrow. (2) AMS (altered mental status) Is this a current diagnosis for this admission?: Yes Plan: looks to be resolved (3) Acute respiratory acidosis Is this a current diagnosis for this admission?: Yes Plan: Improving with BiPAP (4) Acute systolic (congestive) heart failure Is this a current diagnosis for this admission?: Yes Plan: Looks to be on the dryside, will have furosemide held for now. (5) CKD (chronic kidney disease) stage 4, GFR 15-29 ml/min Is this a current diagnosis for this admission?: Yes Plan: Baseline looks to be 4-4.3. (6) Diabetes mellitus type 2 with complications Is this a current diagnosis for this admission?: Yes (7) Dyspnea Qualifiers: Dyspnea type: shortness of breath Qualified Code(s): R06.02 - Shortness of breath; R06.00 - Dyspnea, unspecified; R06.01 - Orthopnea Plan: resolved according to the patient (8) Hypertension Qualifiers: Hypertension type: essential hypertension Qualified Code(s): I10 - Essenti al (primary) hypertension Is this a current diagnosis for this admission?: Yes Plan: All blood pressure medicines are on hold as of right now, recently had dobutamine added (9) Hypokalemia Plan: stable
[2019-07-14] MEDS: ATORVASTATIN CALCIUM 40 MG TABLET PO SCH (17:08)
[2019-07-14] MEDS ORDERED: LEVOTHYROXINE SODIUM 0.025 MG TABLET PO ONE (20:16)
--- NOTE | 2019-07-14 20:16 | PDOC PROGRESS REPORT ---
Subjective Progress Note for:: 07/14/19 Subjective:: Patient remain on BiPAP support. He denied any chest pain. No reported fever or chills. No nausea, vomiting, or abdominal pain. Started on IV Dobutamine infusion in view of his echocardiogram findings with LVEF around 25 %, RV dysfunction and moderate to severe pulmonary hypertension. Reason For Visit: ACUTE ON CHRONIC CHF,CHRONIC A-FIB,DM TYPE 2,HTN,C Physical Exam Vital Signs: Temp Pulse Resp BP Pulse Ox 97.3 F 81 17 148/66 H 98 07/14/19 16:00 07/14/19 19:00 07/14/19 16:00 07/14/19 19:00 07/14/19 16:00 Intake & Output 07/13/19 07/14/19 07/15/19 06:59 06:59 06:59 Intake Total 210 744 510 Output Total 775 520 700 Balance -565 224 -190 Weight 88 kg 82.3 kg Physical Exam: General appearance: PRESENT: severe distress - on BIPAP support Head exam: PRESENT: atraumatic, normocephalic Eye exam: PRESENT: conjunctiva pink. ABSENT: pallor, scleral icterus Respiratory exam: PRESENT: prolonged expiratory phas - at lung bases Cardiovascular exam: PRESENT: RRR, +S1, +S2, systolic murmur Murmur grade: 3 GI/Abdominal exam: PRESENT: normal bowel sounds, soft. ABSENT: distended, guarding, mass, organomegaly, rebound, tenderness : Indwelling Harris catheter in situ. Extremities exam: PRESENT: pedal edema - chronic but significantly improved Neurological exam: PRESENT: altered - with severe respiratory acidosis Skin exam: PRESENT: dry, warm, other - improved blister lesion on left leg Murmur grade: 3 Results Laboratory Results: 07/10/19 21:02 07/14/19 09:00 07/14/19 07/14/19 09:00 09:58 Carbonic Acid 2.43 H HCO3/H2CO3 Ratio 12:1 ABG pH 7.19 L* ABG pCO2 80.6 H* ABG pO2 42.2 L ABG HCO3 29.7 H ABG O2 Saturation 64.1 L ABG Base Excess -0.6 FiO2 30% Sodium 141.2 Potassium 4.0 Chloride 105 Carbon Dioxide 25 Anion Gap 11 BUN 77 H Creatinine 5.97 H Est GFR ( Amer) 11 L Glucose 89 Calcium 9.4 07/09/19 07/09/19 15:38 15:38 Creatine Kinase 33 L CK-MB (CK-2) 1.89 Troponin I 0.175 NT-Pro-B Natriuret Pep [id number] H Impressions: Chest X-Ray 07/09/19 00:00 IMPRESSION: Stable enlarged cardiac silhouette, central vascular congestion and small bilateral effusions, right greater than left. Renal Ultrasound 07/12/19 00:00 IMPRESSION: 1. Increased echogenicity of the renal parenchyma and thinning of the renal cortices - clinical correlation for chronic medical renal disease is recommended. 2. No hydronephrosis. 3. Harris catheter within the urinary bladder. Assessment & Plan - Diagnosis (1) Acute on chronic combined systolic (congestive) and diastolic (congestive) heart failure Is this a current diagnosis for this admission?: Yes (2) CKD (chronic kidney disease) stage 5, GFR less than 15 ml/min Is this a current diagnosis for this admission?: Yes (3) Chronic a-fib Is this a current diagnosis for this admission?: Yes (4) Diabetes mellitus type 2 with complications Is this a current diagnosis for this admission?: Yes (5) Hypertension Qualifiers: Hypertension type: essential hypertension Qualified Code(s): I10 - Essential (primary) hypertension Is this a current diagnosis for this admission?: Yes (6) CAD (coronary atherosclerotic disease) Qualifiers: Coronary Disease-Associated Artery/Lesion type: unspecified vessel or lesion type Associated angina: without angina Is this a current diagnosis for this admission?: Yes (7) HLD (hyperlipidemia) Qualifiers: Hyperlipidemia type: pure hypercholesterolemia Qualified Code(s): E78.00 - Pure hypercholesterolemia, unspecified Is this a current diagnosis for this admission?: Yes (8) Old TX (myocardial infarction) Is this a current diagnosis for this admission?: Yes (9) Chronic gout Qualifiers: Gout site: unspecified site Presence of tophus: without tophus Is this a current diagnosis for this admission?: Yes (10) Osteoarthritis involving multiple joints on both sides of body Is this a current diagnosis for this admission?: Yes (11) AMS (altered mental status) Is this a current diagnosis for this admission?: Yes (12) Acute respiratory acidosis Is this a current diagnosis for this admission?: Yes (13) Subclinical hypothyroidism Is this a current diagnosis for this admission?: Yes Plan: In view of his cardiac disease with decompensation, patient may benefit from low dose Levothyroxine therapy wand close monitoring of response. - Time Time Spent with patient: 25-34 minutes Level of Care: IMCU Medications reviewed and adjusted accordingly: Yes Anticipated discharge: Home with Homehealth Within: Other - Inpatient Certification Based on my medical assessment, after consideration of the patient's comorbidities, presenting symptoms, or acuity I expect that the services needed warrant INPATIENT care.: Yes I certify that my determination is in accordance with my understanding of Medicare's requirements for reasonable and necessary INPATIENT services [42 CFR 412.3e].: Yes Medical Necessity: Significant Comorbidiites Make Outpatient Treatment Too Risky, Need Close Monitoring Due to Risk of Patient Decompensation, Need For Continuous Telemetry Monitoring, Risk of Complication if Not Cared For in Hospital, Risk of Diagnosis Which Will Require Inpatient Eval/Care/Monitoring Post Hospital Care: D/C Pattern Carrier Documentation - Plan Summary Plan Summary: Obtain ABG on BiPAP support. Hold IV Lasix for his worsening BUN and creatinine. Maintain other current medication management. Obtain BMP in am.
[2019-07-14 22:02] LABS: HEMATOCRIT 37.3 % (37.9-51.0); HEMOGLOBIN 12.2 g/dL (13.5-17.0); MEAN CORPUSCULAR HEMOGLOBIN 29.7 pg (27.0-33.4); MEAN CORPUSCULAR HGB CONC 32.7 g/dL (32.0-36.0); MEAN CORPUSCULAR VOLUME 91 fl (80-97); PLATELET COUNT 112 10^3/uL (150-450); RED BLOOD COUNT 4.11 10^6/uL (4.35-5.55); RED CELL DISTRIBUTION WIDTH 18.1 % (11.5-14.0); WHITE BLOOD COUNT 5.3 10^3/uL (4.0-10.5)
[2019-07-14 22:43] LABS: ABSOLUTE LYMPHOCYTES# (MANUAL) 0.4 10^3/uL (0.5-4.7); ABSOLUTE MONOCYTES # (MANUAL) 0.8 10^3/uL (0.1-1.4); BASOPHILS % (MANUAL) 0 % (0-2); EOSINOPHILS % (MANUAL) 1 % (0-6); LYMPHOCYTES % (MANUAL) 7 % (13-45); MONOCYTES % (MANUAL) 16 % (3-13); SEGMENTED NEUTROPHILS % (MAN) 76 % (42-78); TOTAL CELLS COUNTED 100
[2019-07-14 22:44] LABS: ANISOCYTOSIS 2+; PLATELET COMMENT DECREASED
[2019-07-14 22:48] LABS: BURR CELLS 2+; OVALOCYTES 1+; SCHISTOCYTES SLIGHT
[2019-07-15] MEDS: PATIROMER 8.4 GM SUSP PACKET PO SCH (05:35)
[2019-07-15] MEDS: LEVOTHYROXINE SODIUM 0.025 MG TABLET PO SCH (05:36)
[2019-07-15 07:10] LABS: ANION GAP 9 (5-19); BLOOD UREA NITROGEN 81 mg/dL (7-20); CALCIUM 9.6 mg/dL (8.4-10.2); CARBON DIOXIDE 26 mmol/L (22-30); CHLORIDE 106 mmol/L (98-107); POTASSIUM 3.6 mmol/L (3.6-5.0)
[2019-07-15 07:13] LABS: GLUCOSE 47 mg/dL (75-110)
[2019-07-15] MEDS: DEXTROSE 50%-WATER SYRINGE 12.5 GM/25 ML DOSE IV PRN ×2 (07:48→21:39)
[2019-07-15] MEDS: DOBUTAMINE HCL/D5W 500 MG/250 ML RTUINJ IV PRN (08:00)
[2019-07-15 08:28] LABS: ARTERIAL BLOOD BASE EXCESS -2.1 mmol/L; ARTERIAL BLOOD FIO2 2L; ARTERIAL BLOOD H2CO3 2.16 mmol/L (1.05-1.35); ARTERIAL BLOOD HCO3 27.5 mmol/L (20-24); ARTERIAL BLOOD O2 SATURATION 95.1 % (94-98); ARTERIAL BLOOD PO2 93.3 mmHg (80-100); ARTERIAL BLOOD TOTAL CO2 29.7 mmol/L (23-27)
[2019-07-15 08:29] LABS: ARTERIAL BLOOD PCO2 71.7 mmHg (35-45)
--- NOTE | 2019-07-15 08:57 | PDOC PROGRESS REPORT ---
Subjective Progress Note for:: 07/15/19 Subjective:: Patient was seen sitting up on the edge of his bed. He claims to be doing well. Only issue he had last night was that his blood sugar dropped. At this time it is back to 133 when the nurse was checking. He claims that his SOB is significantly improved. On dobutamine but with the furosemide held he produced 2,100mL of urine. Reason For Visit: ACUTE ON CHRONIC CHF,CHRONIC A-FIB,DM TYPE 2,HTN,C Physical Exam Vital Signs: Temp Pulse Resp BP Pulse Ox 97.9 F 70 15 133/45 H 96 07/15/19 02:00 07/15/19 06:00 07/15/19 04:09 07/15/19 06:00 07/15/19 08:00 Intake & Output 07/14/19 07/15/19 07/16/19 06:59 06:59 06:59 Intake Total 744 510 192 Output Total 520 2100 Balance 224 -1590 192 Weight 82.3 kg 82.6 kg General appearance: PRESENT: no acute distress, well-developed, well-nourished, other - on NC for oxygen Mouth exam: PRESENT: moist, neck supple Neck exam: ABSENT: JVD, tracheal deviation Respiratory exam: PRESENT: crackles - -bases of the lungs. ABSENT: clear to auscultation amelia, rales, wheezes Cardiovascular exam: PRESENT: RRR, +S1, +S2 GI/Abdominal exam: PRESENT: distended, soft. ABSENT: guarding, tenderness Extremities exam: PRESENT: +1 edema. ABSENT: tenderness, +2 edema Musculoskeletal exam: PRESENT: normal inspection. ABSENT: tenderness Neurological exam: PRESENT: alert, awake, oriented to person, oriented to place, oriented to time, oriented to situation Results Laboratory Results: 07/14/19 21:14 07/15/19 05:52 07/14/19 07/14/19 07/14/19 09:00 09:58 21:14 WBC 5.3 RBC 4.11 L Hgb 12.2 L Hct 37.3 L MCV 91 MCH 29.7 MCHC 32.7 RDW 18.1 H Plt Count 112 L Seg Neutrophils % Not Reportable Carbonic Acid 2.43 H HCO3/H2CO3 Ratio 12:1 ABG pH 7.19 L* ABG pCO2 80.6 H* ABG pO2 42.2 L ABG HCO3 29.7 H ABG O2 Saturation 64.1 L ABG Base Excess -0.6 FiO2 30% Sodium 141.2 Potassium 4.0 Chloride 105 Carbon Dioxide 25 Anion Gap 11 BUN 77 H Creatinine 5.97 H Est GFR ( Amer) 11 L Glucose 89 Calcium 9.4 Magnesium 07/15/19 07/15/19 05:52 08:18 WBC RBC Hgb Hct MCV MCH MCHC RDW Plt Count Seg Neutrophils % Carbonic Acid 2.16 H HCO3/H2CO3 Ratio 12:1 ABG pH 7.20 L* ABG pCO2 71.7 H* ABG pO2 93.3 ABG HCO3 27.5 H ABG O2 Saturation 95.1 ABG Base Excess -2.1 FiO2 2L Sodium 140.5 Potassium 3.6 Chloride 106 Carbon Dioxide 26 Anion Gap 9 BUN 81 H Creatinine 5.85 H Est GFR ( Amer) 11 L Glucose 47 L Calcium 9.6 Magnesium 1.7 07/09/19 07/09/19 15:38 15:38 Creatine Kinase 33 L CK-MB (CK-2) 1.89 Troponin I 0.175 NT-Pro-B Natriuret Pep [id number] H Impressions: Chest X-Ray 07/09/19 00:00 IMPRESSION: Stable enlarged cardiac silhouette, central vascular congestion and small bilateral effusions, right greater than left. Renal Ultrasound 07/12/19 00:00 IMPRESSION: 1. Increased echogenicity of the renal parenchyma and thinning of the renal cortices - clinical correlation for chronic medical renal disease is recommended. 2. No hydronephrosis. 3. Harris catheter within the urinary bladder. Assessment & Plan - Diagnosis (1) Acute kidney injury superimposed on chronic kidney disease Plan: Creatinine improved and urine output improved with the addition of dobutamine. Most likely getting better perfusion to the kidneys. At this time will continue to hold the furosemide, get a chest x-ray to evaluate volume status. No indication [employer]. (2) AMS (altered mental status) Is this a current diagnosis for this admission?: Yes Plan: looks to be resolved (3) Acute respiratory acidosis Is this a current diagnosis for this admission?: Yes Plan: Improving with BiPAP (4) Acute systolic (congestive) heart failure Is this a current diagnosis for this admission?: Yes Plan: Had good urine output with dobutamine. Will hold furosemide for now and get a chest x-ray. (5) CKD (chronic kidney disease) stage 4, GFR 15-29 ml/min Is this a current diagnosis for this admission?: Yes Plan: Baseline looks to be 4-4.3. According to Dr. Jean, who follows with him as outpatient. He sometimes ranges up to 5 for his creatinine. (6) Diabetes mellitus type 2 with complications Is this a current diagnosis for this admission?: Yes (7) Dyspnea Qualifiers: Dyspnea type: shortness of breath Qualified Code(s): R06.02 - Shortness of breath; R06.00 - Dyspnea, unspecified; R06.01 - Orthopnea (8) Hypertension Qualifiers: Hypertension type: essential hypertension Qualified Code(s): I10 - Essential (primary) hypertension Is this a current diagnosis for this admission?: Yes Plan: stable (9) Hypokalemia Plan: stable
[2019-07-15] MEDS: APIXABAN 2.5 MG TABLET PO SCH ×2 (09:32→21:00)
[2019-07-15] MEDS: ASCORBIC ACID 500 MG TABLET PO SCH (09:32)
[2019-07-15] MEDS: INSULIN LISPRO 100 UNIT/ML 3 ML VIAL SUBCUT SCH ×4 (09:32→21:21)
[2019-07-15] MEDS: PANTOPRAZOLE SODIUM 40 MG TABLET.DR PO SCH (09:32)
[2019-07-15] MEDS: FERROUS SULFATE 325 MG TABLET PO SCH ×2 (09:32→21:00)
[2019-07-15] MEDS: GLIPIZIDE 5 MG TABLET PO SCH (09:32)
--- NOTE | 2019-07-15 09:54 | RADIOLOGY REPORT (SQ) ---
EXAM DESCRIPTION: CHEST SINGLE VIEW IMAGES COMPLETED DATE/TIME: 07/15/2019 9:20 am REASON FOR STUDY: Repeat COMPARISON: 07/09/2019 NUMBER OF VIEWS: One view. TECHNIQUE: Single frontal radiographic view of the chest acquired. LIMITATIONS: None. FINDINGS: LUNGS AND PLEURA: Bilateral pleural effusions and associated airspace disease, right great er than left not significantly changed. MEDIASTINUM AND HILAR STRUCTURES: Stable. HEART AND VASCULATURE: Cardiac enlargement. Vascular congestion. BONES: No acute findings. HARDWARE: Stable position of defibrillator. OTHER: No other significant finding. IMPRESSION: CHF. No significant change. TECHNICAL DOCUMENTATION: JOB ID: [id number] 2010 [employer]- All Rights Reserved Reading location - IP/workstation name: [email or web address]
--- NOTE | 2019-07-15 13:42 | PDOC PROGRESS REPORT ---
Subjective Progress Note for:: 07/15/19 Subjective:: Patient seen and examined. Resting in bed with noninvasive positive pressure ventilation. Since being initiated on dobutamine is demonstrated some progress. Edema is resolved to a market degree. Is also making urine. Blood pressure is improved. He seems to have eaten most of his tray. Reason For Visit: ACUTE ON CHRONIC CHF,CHRONIC A-FIB,DM TYPE 2,HTN,C Physical Exam Vital Signs: Temp Pulse Resp BP Pulse Ox 97.9 F 84 20 123/81 96 07/15/19 02:00 07/15/19 13:00 07/15/19 11:00 07/15/19 13:00 07/15/19 08:00 Intake & Output 07/14/19 07/15/19 07/16/19 06:59 06:59 06:59 Intake Total 744 510 192 Output Total 520 2100 Balance 224 -1590 192 Weight 82.3 kg 82.6 kg General appearance: PRESENT: no acute distress, cooperative Head exam: PRESENT: atraumatic, normocephalic Eye exam: PRESENT: conjunctiva pink, EOMI Mouth exam: PRESENT: moist, other - BiPAP mask noted Neck exam: PRESENT: JVD Respiratory exam: PRESENT: crackles, decreased breath sounds, symmetrical, unlabored Cardiovascular exam: PRESENT: irregular rhythm, +S1, +S2 Pulses: PRESENT: normal radial pulses GI/Abdominal exam: PRESENT: soft Rectal exam: PRESENT: deferred Skin exam: PRESENT: dry, intact Results Laboratory Results: 07/14/19 21:14 07/15/19 05:52 07/14/19 07/15/19 07/15/19 21:14 05:52 08:18 WBC 5.3 RBC 4.11 L Hgb 12.2 L Hct 37.3 L MCV 91 MCH 29.7 MCHC 32.7 RDW 18.1 H Plt Count 112 L Seg Neutrophils % Not Reportable Carbonic Acid 2.16 H HCO3/H2CO3 Ratio 12:1 ABG pH 7.20 L* ABG pCO2 71.7 H* ABG pO2 93.3 ABG HCO3 27.5 H ABG O2 Saturation 95.1 ABG Base Excess -2.1 FiO2 2L Sodium 140.5 Potassium 3.6 Chloride 106 Carbon Dioxide 26 Anion Gap 9 BUN 81 H Creatinine 5.85 H Est GFR ( Amer) 11 L Glucose 47 L Calcium 9.6 Magnesium 1.7 07/09/19 07/09/19 15:38 15:38 Creatine Kinase 33 L CK-MB (CK-2) 1.89 Troponin I 0.175 NT-Pro-B Natriuret Pep [id number] H Impressions: Renal Ultrasound 07/12/19 00:00 IMPRESSION: 1. Increased echogenicity of the renal parenchyma and thinning of the renal cortices - clinical correlation for chronic medical renal disease is recommended. 2. No hydronephrosis. 3. Harris catheter within the urinary bladder. Chest X-Ray 07/15/19 08:08 IMPRESSION: CHF. No significant change. Assessment & Plan - Diagnosis (1) Hypertension Qualifiers: Hypertension type: essential hypertension Qualified Code(s): I10 - Essential (primary) hypertension Is this a current diagnosis for this admission?: Yes Plan: Watch blood pressure as we continue to diurese. Patient had mildly increased blood pressure and we had to dial back on the dobutamine. (2) Chronic a-fib Is this a current diagnosis for this admission?: Yes Plan: Rate controlled. Continue present therapy Systemic anticoagulation with apixaban. (3) CHF (congestive heart failure) Qualifiers: Heart failure type: combined systolic and diastolic Heart failure chronicity: acute on chronic Qualified Code(s): I50.43 - Acute on chronic combined systolic (congestive) and diastolic (congestive) heart failure Is this a current diagnosis for this admission?: Yes Plan: Satisfactory response to dobutamine in the setting of probable low cardiac output state with moderate to severe left ventricular dysfunction with ejection fraction estimated at around 25%. Warm extremities which show perfusion and improvement in urine output. We will watch his creatinine. We will continue dobutamine for at least another 24 hours and reassess. Will likely require maintenance diuretic and other guideline directed therapy including beta-blockers especially if hemodynamic parameters would permit (4) ICD (implantable cardioverter-defibrillator) in place Is this a current diagnosis for this admission?: Yes Plan: Site [facility]
[2019-07-15] MEDS: ATORVASTATIN CALCIUM 40 MG TABLET PO SCH (17:39)
[2019-07-15 17:45] LABS: ARTERIAL BLOOD BASE EXCESS -1.1 mmol/L; ARTERIAL BLOOD H2CO3 2.68 mmol/L (1.05-1.35); ARTERIAL BLOOD O2 SATURATION 86.8 % (94-98); ARTERIAL BLOOD PO2 68.5 mmHg (80-100); ARTERIAL BLOOD TOTAL CO2 32.8 mmol/L (23-27)
[2019-07-15 17:47] LABS: ARTERIAL BLOOD FIO2 2L
[2019-07-15 17:49] LABS: ARTERIAL BLOOD PH 7.15 (7.35-7.45)
--- NOTE | 2019-07-15 18:49 | PDOC PROGRESS REPORT ---
Subjective Progress Note for:: 07/15/19 Subjective:: Patient remain on BiPAP support. He became less responsive earlier today after doing very well this morning. He was off BiPAP support for meal only so far. No reported about any expressed chest pain. No reported fever or chills. No nausea, vomiting, or abdominal pain. Reason For Visit: ACUTE ON CHRONIC CHF,CHRONIC A-FIB,DM TYPE 2,HTN,C Physical Exam Vital Signs: Temp Pulse Resp BP Pulse Ox 97.9 F 90 20 124/70 95 07/15/19 02:00 07/15/19 18:00 07/15/19 16:21 07/15/19 18:00 07/15/19 16:21 Intake & Output 07/14/19 07/15/19 07/16/19 06:59 06:59 06:59 Intake Total 744 510 672 Output Total 520 2100 400 Balance 224 -1590 272 Weight 82.3 kg 82.6 kg Physical Exam: General appearance: PRESENT: severe distress - on BIPAP support Head exam: PRESENT: atraumatic, normocephalic Eye exam: PRESENT: conjunctiva pink. ABSENT: pallor, scleral icterus Respiratory exam: PRESENT: prolonged expiratory phase - at lung bases Cardiovascular exam: PRESENT: RRR, +S1, +S2, systolic murmur Murmur grade: 3 GI/Abdominal exam: PRESENT: normal bowel sounds, soft. ABSENT: distended, guarding, mass, organomegaly, rebound, tenderness : Indwelling Harris catheter in situ. Extremities exam: PRESENT: significantly resolved pedal edema Neurological exam: PRESENT: altered - with severe respiratory acidosis Skin exam: PRESENT: dry, warm, other - improved blister lesion on left leg Murmur grade: 3 Results Laboratory Results: 07/14/19 21:14 07/15/19 05:52 07/14/19 07/15/19 07/15/19 21:14 05:52 08:18 WBC 5.3 RBC 4.11 L Hgb 12.2 L Hct 37.3 L MCV 91 MCH 29.7 MCHC 32.7 RDW 18.1 H Plt Count 112 L Seg Neutrophils % Not Reportable Carbonic Acid 2.16 H HCO3/H2CO3 Ratio 12:1 ABG pH 7.20 L* ABG pCO2 71.7 H* ABG pO2 93.3 ABG HCO3 27.5 H ABG O2 Saturation 95.1 ABG Base Excess -2.1 FiO2 2L Sodium 140.5 Potassium 3.6 Chloride 106 Carbon Dioxide 26 Anion Gap 9 BUN 81 H Creatinine 5.85 H Est GFR ( Amer) 11 L Glucose 47 L Calcium 9.6 Magnesium 1.7 07/15/19 17:35 WBC RBC Hgb Hct MCV MCH MCHC RDW Plt Count Seg Neutrophils % Carbonic Acid 2.68 H HCO3/H2CO3 Ratio 11:1 ABG pH 7.15 L* ABG pCO2 89.0 H* ABG pO2 68.5 L ABG HCO3 30.0 H ABG O2 Saturation 86.8 L ABG Base Excess -1.1 FiO2 2L Sodium Potassium Chloride Carbon Dioxide Anion Gap BUN Creatinine Est GFR ( Amer) Glucose Calcium Magnesium 07/09/19 07/09/19 15:38 15:38 Creatine Kinase 33 L CK-MB (CK-2) 1.89 Troponin I 0.175 NT-Pro-B Natriuret Pep 79066 H Impressions: Renal Ultrasound 07/12/19 00:00 IMPRESSION: 1. Increased echogenicity of the renal parenchyma and thinning of the renal cortices - clinical correlation for chronic medical renal disease is recommended. 2. No hydronephrosis. 3. Harris catheter within the urinary bladder. Chest X-Ray 07/15/19 08:08 IMPRESSION: CHF. No significant change. Assessment & Plan - Diagnosis (1) Acute on chronic combined systolic (congestive) and diastolic (congestive) heart failure Is this a current diagnosis for this admission?: Yes (2) CKD (chronic kidney disease) stage 5, GFR less than 15 ml/min Is this a current diagnosis for this admission?: Yes (3) Chronic a-fib Is this a current diagnosis for this admission?: Yes (4) Diabetes mellitus type 2 with complications Is this a current diagnosis for this admission?: Yes (5) Hypertension Qualifiers: Hypertension type: essential hypertension Qualified Code(s): I10 - Essential (primary) hypertension Is this a current diagnosis for this admission?: Yes (6) CAD (coronary atherosclerotic disease) Qualifiers: Coronary Disease-Associated Artery/Lesion type: unspecified vessel or lesion type Associated angina: without angina Is this a current diagnosis for this admission?: Yes (7) HLD (hyperlipidemia) Qualifiers: Hyperlipidemia type: pure hypercholesterolemia Qualified Code(s): E78.00 - Pure hypercholesterolemia, unspecified Is this a current diagnosis for this admission?: Yes (8) Old ID (myocardial infarction) Is this a current diagnosis for this admission?: Yes (9) Chronic gout Qualifiers: Gout site: unspecified site Presence of tophus: without tophus Is this a current diagnosis for this admission?: Yes (10) Osteoarthritis involving multiple joints on both sides of body Is this a current diagnosis for this admission?: Yes (11) AMS (altered mental status) Is this a current diagnosis for this admission?: Yes (12) Acute respiratory acidosis Is this a current diagnosis for this admission?: Yes (13) Subclinical hypothyroidism Is this a current diagnosis for this admission?: Yes - Time Time Spent with patient: 25-34 minutes Level of Care: IMCU Medications reviewed and adjusted accordingly: Yes Anticipated discharge: Home with Homehealth Within: Other - Inpatient Certification Based on my medical assessment, after consideration of the patient's comorbidities, presenting symptoms, or acuity I expect that the services needed warrant INPATIENT care.: Yes I certify that my determination is in accordance with my understanding of Medicare's requirements for reasonable and necessary INPATIENT services [42 CFR 412.3e].: Yes Medical Necessity: Significant Comorbidiites Make Outpatient Treatment Too Risky, Need Close Monitoring Due to Risk of Patient Decompensation, Need For Continuous Telemetry Monitoring, Risk of Complication if Not Cared For in Hospital, Risk of Diagnosis Which Will Require Inpatient Eval/Care/Monitoring Post Hospital Care: D/C News Library Director Documentation - Plan Summary Plan Summary: Continue current medication management. Obtain chest X ray portable. Obtain CBC with Diff and CMP in AM. Obtain pulmonary consultation with Dr Cool for possible pulmonary component of his current hypercapnia and hypoxemia despite BiPAP support and cardiac augmentation. e
--- NOTE | 2019-07-15 20:01 | RADIOLOGY REPORT (SQ) ---
CLINICAL INDICATION: Acute respiratory failure. TECHNIQUE: A single portable AP view was obtained of the chest at 1852 hours. COMPARISON: 0915 hours. FINDINGS: The cardiomediastinal silhouette is enlarged but stable with postsurgical change. The lungs again demonstrate pleural and parenchymal disease bilaterally with apparent pleural thickening right hemithorax, similar to prior. Right john/infrahilar fullness, similar to prior. No pneumothorax. Vascular congestion. Vascular calcification. Osteoarthritis. IMPRESSION: No interval change in appearance of the chest when compared to prior. Pleural and parenchymal disease, bilaterally. Enlarged heart.
[2019-07-16] MEDS: PATIROMER 8.4 GM SUSP PACKET PO SCH (05:38)
[2019-07-16] MEDS: LEVOTHYROXINE SODIUM 0.025 MG TABLET PO SCH (05:40)
[2019-07-16 06:31] LABS: ABSOLUTE LYMPHOCYTES (AUTO) 0.2 10^3/uL (0.5-4.7); ABSOLUTE MONOCYTES (AUTO) 0.6 10^3/uL (0.1-1.4); ABSOLUTE NEUT (AUTO) 3.6 10^3/uL (1.7-8.2); BASOPHILS % (AUTO) 0.6 % (0-2); HEMATOCRIT 36.8 % (37.9-51.0); HEMOGLOBIN 11.9 g/dL (13.5-17.0); LYMPHOCYTES % (AUTO) 5.5 % (13-45); MEAN CORPUSCULAR HEMOGLOBIN 29.4 pg (27.0-33.4); MEAN CORPUSCULAR HGB CONC 32.2 g/dL (32.0-36.0); MEAN CORPUSCULAR VOLUME 91 fl (80-97); MONOCYTES % (AUTO) 13.9 % (3-13); PLATELET COUNT 105 10^3/uL (150-450); RED BLOOD COUNT 4.03 10^6/uL (4.35-5.55); RED CELL DISTRIBUTION WIDTH 18.2 % (11.5-14.0); TOTAL CELLS COUNTED % (AUTO) 100 %; WHITE BLOOD COUNT 4.5 10^3/uL (4.0-10.5)
[2019-07-16 06:42] LABS: ARTERIAL BLOOD BASE EXCESS -2.3 mmol/L; ARTERIAL BLOOD H2CO3 2.14 mmol/L (1.05-1.35); ARTERIAL BLOOD HCO3 27.1 mmol/L (20-24); ARTERIAL BLOOD O2 SATURATION 96.6 % (94-98); ARTERIAL BLOOD PO2 108.1 mmHg (80-100); ARTERIAL BLOOD TOTAL CO2 29.3 mmol/L (23-27)
[2019-07-16 06:48] LABS: ARTERIAL BLOOD PCO2 71.2 mmHg (35-45)
[2019-07-16 06:49] LABS: ARTERIAL BLOOD FIO2 30%
[2019-07-16] MEDS: INSULIN LISPRO 100 UNIT/ML 3 ML VIAL SUBCUT SCH ×4 (08:01→21:16)
[2019-07-16] MEDS: PANTOPRAZOLE SODIUM 40 MG TABLET.DR PO SCH (08:02)
[2019-07-16 08:10] LABS: ALKALINE PHOSPHATASE 54 U/L (38-126); ANION GAP 7 (5-19); ASPARTATE AMINO TRANSFERASE 29 U/L (17-59); BILIRUBIN,DIRECT 0.3 mg/dL (0.0-0.4); BILIRUBIN,TOTAL 0.9 mg/dL (0.2-1.3); BLOOD UREA NITROGEN 80 mg/dL (7-20); CALCIUM 9.7 mg/dL (8.4-10.2); CARBON DIOXIDE 29 mmol/L (22-30); CHLORIDE 103 mmol/L (98-107); TOTAL PROTEIN 5.8 g/dL (6.3-8.2)
[2019-07-16 08:23] LABS: GLUCOSE 30 mg/dL (75-110)
[2019-07-16] MEDS: DEXTROSE 50%-WATER SYRINGE 12.5 GM/25 ML DOSE IV PRN (09:38)
[2019-07-16] MEDS: APIXABAN 2.5 MG TABLET PO SCH ×2 (09:38→22:05)
[2019-07-16] MEDS: ASCORBIC ACID 500 MG TABLET PO SCH (09:38)
[2019-07-16] MEDS: FERROUS SULFATE 325 MG TABLET PO SCH ×2 (09:38→22:05)
[2019-07-16] MEDS: GLIPIZIDE 5 MG TABLET PO SCH (09:38)
--- NOTE | 2019-07-16 11:52 | PDOC PROGRESS REPORT ---
Subjective Progress Note for:: 07/16/19 Subjective:: Patient was seen laying in his bed with his bipap on. He continues to have problems with CO2 retention. Appears to be a little more lethargic today and going in and out of AMS. Blood sugars also continue to drop despite being off insulin. Urine output continues to be good since being placed on dobutamine. Reason For Visit: ACUTE ON CHRONIC CHF,CHRONIC A-FIB,DM TYPE 2,HTN,C Physical Exam Vital Signs: Temp Pulse Resp BP Pulse Ox 97.9 F 64 14 129/75 H 100 07/16/19 10:46 07/16/19 10:46 07/16/19 10:46 07/16/19 10:46 07/16/19 10:46 Intake & Output 07/15/19 07/16/19 07/17/19 06:59 06:59 06:59 Intake Total 510 912 0 Output Total 2100 1200 225 Balance -1590 -288 -225 Weight 82.6 kg 84.4 kg General appearance: PRESENT: no acute distress, well-developed, well-nourished, other - -slightly lethargic, having trouble keeping his eyes open. Mouth exam: PRESENT: moist, neck supple Neck exam: ABSENT: JVD, tracheal deviation Respiratory exam: PRESENT: crackles, decreased breath sounds. ABSENT: accessory muscle use, clear to auscultation amelia, rhonchi, wheezes Cardiovascular exam: PRESENT: RRR, +S1, +S2 GI/Abdominal exam: PRESENT: distended, soft. ABSENT: guarding, tenderness Extremities exam: PRESENT: pedal edema - -trace+. ABSENT: tenderness, +1 edema, +2 edema Neurological exam: PRESENT: altered, oriented to person, oriented to place. ABSENT: alert, oriented to time, oriented to situation Skin exam: PRESENT: dry, intact, warm. ABSENT: cyanosis Results Laboratory Results: 07/16/19 05:53 07/16/19 07:29 07/15/19 07/16/19 07/16/19 17:35 05:53 05:53 WBC 4.5 RBC 4.03 L Hgb 11.9 L Hct 36.8 L MCV 91 MCH 29.4 MCHC 32.2 RDW 18.2 H Plt Count 105 L Seg Neutrophils % 79.0 H Carbonic Acid 2.68 H HCO3/H2CO3 Ratio 11:1 ABG pH 7.15 L* ABG pCO2 89.0 H* ABG pO2 68.5 L ABG HCO3 30.0 H ABG O2 Saturation 86.8 L ABG Base Excess -1.1 FiO2 2L Sodium Cancelled Potassium Cancelled Chloride Cancelled Carbon Dioxide Cancelled Anion Gap Cancelled BUN Cancelled Creatinine Cancelled Est GFR ( Amer) Cancelled Est GFR (Non-Af Amer) Cancelled Glucose Cancelled Calcium Cancelled Total Bilirubin Cancelled AST Cancelled Alkaline Phosphatase Cancelled Total Protein Cancelled Albumin Cancelled 07/16/19 07/16/19 06:25 07:29 WBC RBC Hgb Hct MCV MCH MCHC RDW Plt Count Seg Neutrophils % Carbonic Acid 2.14 H HCO3/H2CO3 Ratio 12:1 ABG pH 7.20 L* ABG pCO2 71.2 H* ABG pO2 108.1 H ABG HCO3 27.1 H ABG O2 Saturation 96.6 ABG Base Excess -2.3 FiO2 30% Sodium 138.8 Potassium 4.0 Chloride 103 Carbon Dioxide 29 Anion Gap 7 BUN 80 H Creatinine 5.62 H Est GFR ( Amer) 12 L Est GFR (Non-Af Amer) Glucose 30 L* Calcium 9.7 Total Bilirubin 0.9 AST 29 Alkaline Phosphatase 54 Total Protein 5.8 L Albumin 3.0 L 07/09/19 07/09/19 15:38 15:38 Creatine Kinase 33 L CK-MB (CK-2) 1.89 Troponin I 0.175 NT-Pro-B Natriuret Pep 72757 H Impressions: Renal Ultrasound 07/12/19 00:00 IMPRESSION: 1. Increased echogenicity of the renal parenchyma and thinning of the renal cortices - clinical correlation for chronic medical renal disease is recommended. 2. No hydronephrosis. 3. Harris catheter within the urinary bladder. Chest X-Ray 07/15/19 08:08 IMPRESSION: CHF. No significant change. Assessment & Plan - Diagnosis (1) Hypercapnia Plan: per conversation with Dr. Jean who spoke with Dr. Duran. Patient is being switched to AVAP, looking to get his pleural effusions drained, and placing on pip/tazo for pneumonia. Patient wishes to not be intubated. (2) Pleural effusion Plan: Spoke with Dr. Jean who spoke with Dr. Duran about the patient's condition. They came to the conclusion of getting a ultrasound to see if the pleural effusion could be drained. Unfortunately he is not in the condition to have a CT. (3) Pneumonia Plan: Spoke with Dr. Jean who spoke with Dr. Duran, patient is to be placed on pip/tazo for pneumonia. (4) Acute kidney injury superimposed on chronic kidney disease Plan: continue off furosemide for now. I's&O's continue to be negative despite being off furosemide. (5) Acute respiratory acidosis Is this a current diagnosis for this admission?: Yes (6) Acute systolic (congestive) heart failure Is this a current diagnosis for this admission?: Yes Plan: off diuretics, has a pleural effusion that may need tapped. Getting an ultrasound to determine the need for tapping. (7) AMS (altered mental status) Is this a current diagnosis for this admission?: Yes Plan: switch to AVAP to help bring down the CO2. Per a conversation with Dr. Jean, he still wished to NOT be intubated. Could be having issues with hypoglycemia adding to his AMS. Currently off of Insulin. (8) CKD (chronic kidney disease) stage 4, GFR 15-29 ml/min Is this a current diagnosis for this admission?: Yes Plan: Baseline looks to be 4-4.3. According to Dr. Jean, who follows with him as outpatient. He sometimes ranges up to 5 for his creatinine. (9) Diabetes mellitus type 2 with complications Is this a current diagnosis for this admission?: Yes Plan: off of insulin (10) Dyspnea Qualifiers: Dyspnea type: shortness of breath Qualified Code(s): R06.02 - Shortness of breath; R06.00 - Dyspnea, unspecified; R06.01 - Orthopnea Plan: see CHF (11) Hypertension Qualifiers: Hypertension type: essential hypertension Qualified Code(s): I10 - Essential (primary) hypertension Is this a current diagnosis for this admission?: Yes Plan: stable (12) Hypokalemia Plan: stable - Notes Notes: case was discussed with Dr. Jean.
--- NOTE | 2019-07-16 13:21 | RADIOLOGY REPORT (SQ) ---
EXAM DESCRIPTION: U/S CHEST IMAGES COMPLETED DATE/TIME: 07/16/2019 1:09 pm REASON FOR STUDY: pleural effusion COMPARISON: None. TECHNIQUE: Dynamic and static grayscale images acquired of the localized site of clinical concern an d recorded on PACS. Additional selected color Doppler and spectral images recorded. SITE OF CONCERN: Right pleural space LIMITATIONS: None. FINDINGS: SKIN AND SUBCUTANEOUS TISSUES: No masses. No fluid collections. No edema. No foreign alexis s. DEEP SOFT TISSUES/MUSCLES: No masses. No fluid collections. No edema. VASCULAR: No increased or decreased vascularity. No occlusions. OTHER: Small right pleural effusion. This measures 1.6 cm in greatest transverse dimension. IMPRESSION: Small right pleural effusion. TECHNICAL DOCUMENTATION: JOB ID: [id number] 2010 [employer]- All Rights Reserved Reading location - IP/workstation name: [email or web address]
[2019-07-16 14:37] LABS: ARTERIAL BLOOD BASE EXCESS -2.8 mmol/L; ARTERIAL BLOOD H2CO3 2.44 mmol/L (1.05-1.35); ARTERIAL BLOOD HCO3 27.7 mmol/L (20-24); ARTERIAL BLOOD O2 SATURATION 96.2 % (94-98); ARTERIAL BLOOD PO2 108.7 mmHg (80-100); ARTERIAL BLOOD TOTAL CO2 30.2 mmol/L (23-27)
[2019-07-16 14:39] LABS: ARTERIAL BLOOD FIO2 30%
[2019-07-16 14:41] LABS: ARTERIAL BLOOD PH 7.15 (7.35-7.45)
[2019-07-16] MEDS: PIPERACILLIN SODIUM/TAZOBACTAM 2.25 GM in NORMAL SALINE 50 ML IV SCH ×2 (14:59→22:04)
--- NOTE | 2019-07-16 16:19 | PDOC PROGRESS REPORT ---
Subjective Progress Note for:: 07/16/19 Subjective:: Patient BiPAP support was considered inadequate due to increase somnolence and hypercapnia on his ABG. There was concern about possible space limiting pleural effusion and ongoing lung infectious process. He denied any chest pain. No reported fever or chills. No nausea, vomiting, or abdominal pain. I discussed case with Dr. Jean, cold saw operator, it was agreed to obtain chest US evaluation and start on renal adjusted dose IV Zosyn. Reason For Visit: ACUTE ON CHRONIC CHF,CHRONIC A-FIB,DM TYPE 2,HTN,C Physical Exam Vital Signs: Temp Pulse Resp BP Pulse Ox 97.9 F 104 H 12 114/67 93 07/16/19 10:46 07/16/19 12:00 07/16/19 11:57 07/16/19 12:00 07/16/19 11:57 Intake & Output 07/15/19 07/16/19 07/17/19 06:59 06:59 06:59 Intake Total 510 912 0 Output Total 2100 1200 225 Balance -1590 -288 -225 Weight 82.6 kg 84.4 kg Physical Exam: General appearance: PRESENT: severe distress - on AVAP support Head exam: PRESENT: atraumatic, normocephalic Eye exam: PRESENT: conjunctiva pink. ABSENT: pallor, scleral icterus Respiratory exam: PRESENT: prolonged expiratory phase - at lung bases Cardiovascular exam: PRESENT: RRR, +S1, +S2, systolic murmur Murmur grade: 3 GI/Abdominal exam: PRESENT: normal bowel sounds, soft. ABSENT: distended, guarding, mass, organomegaly, rebound, tenderness : Indwelling Harris catheter in situ. Extremities exam: PRESENT: significantly resolved pedal edema Neurological exam: PRESENT: He is alert and appropriate in responses at the time of my bedside visit. Remain on AVAP Trilogy support - with severe respiratory acidosis Skin exam: PRESENT: dry, warm, other - improved blister lesion on left leg Murmur grade: 3 Results Laboratory Results: 07/16/19 05:53 07/16/19 07:29 07/15/19 07/16/19 07/16/19 17:35 05:53 05:53 WBC 4.5 RBC 4.03 L Hgb 11.9 L Hct 36.8 L MCV 91 MCH 29.4 MCHC 32.2 RDW 18.2 H Plt Count 105 L Seg Neutrophils % 79.0 H Carbonic Acid 2.68 H HCO3/H2CO3 Ratio 11:1 ABG pH 7.15 L* ABG pCO2 89.0 H* ABG pO2 68.5 L ABG HCO3 30.0 H ABG O2 Saturation 86.8 L ABG Base Excess -1.1 FiO2 2L Sodium Cancelled Potassium Cancelled Chloride Cancelled Carbon Dioxide Cancelled Anion Gap Cancelled BUN Cancelled Creatinine Cancelled Est GFR ( Amer) Cancelled Est GFR (Non-Af Amer) Cancelled Glucose Cancelled Calcium Cancelled Total Bilirubin Cancelled AST Cancelled Alkaline Phosphatase Cancelled Total Protein Cancelled Albumin Cancelled 07/16/19 07/16/19 07/16/19 06:25 07:29 14:07 WBC RBC Hgb Hct MCV MCH MCHC RDW Plt Count Seg Neutrophils % Carbonic Acid 2.14 H 2.44 H HCO3/H2CO3 Ratio 12:1 11:1 ABG pH 7.20 L* 7.15 L* ABG pCO2 71.2 H* 81.0 H* ABG pO2 108.1 H 108.7 H ABG HCO3 27.1 H 27.7 H ABG O2 Saturation 96.6 96.2 ABG Base Excess -2.3 -2.8 FiO2 30% 30% Sodium 138.8 Potassium 4.0 Chloride 103 Carbon Dioxide 29 Anion Gap 7 BUN 80 H Creatinine 5.62 H Est GFR ( Amer) 12 L Est GFR (Non-Af Amer) Glucose 30 L* Calcium 9.7 Total Bilirubin 0.9 AST 29 Alkaline Phosphatase 54 Total Protein 5.8 L Albumin 3.0 L 07/09/19 07/09/19 15:38 15:38 Creatine Kinase 33 L CK-MB (CK-2) 1.89 Troponin I 0.175 NT-Pro-B Natriuret Pep [id number] H Impressions: Renal Ultrasound 07/12/19 00:00 IMPRESSION: 1. Increased echogenicity of the renal parenchyma and thinning of the renal cortices - clinical correlation for chronic medical renal disease is recommended. 2. No hydronephrosis. 3. Harris catheter within the urinary bladder. Chest X-Ray 07/15/19 08:08 IMPRESSION: CHF. No significant change. Chest Ultrasound 07/16/19 00:00 IMPRESSION: Small right pleural effusion. Assessment & Plan - Diagnosis (1) Acute on chronic combined systolic (congestive) and diastolic (congestive) heart failure Is this a current diagnosis for this admission?: Yes (2) CKD (chronic kidney disease) stage 5, GFR less than 15 ml/min Is this a current diagnosis for this admission?: Yes (3) Chronic a-fib Is this a current diagnosis for this admission?: Yes (4) Diabetes mellitus type 2 with complications Is this a current diagnosis for this admission?: Yes (5) Hypertension Qualifiers: Hypertension type: essential hypertension Qualified Code(s): I10 - Essential (primary) hypertension Is this a current diagnosis for this admission?: Yes (6) CAD (coronary atherosclerotic disease) Qualifiers: Coronary Disease-Associated Artery/Lesion type: unspecified vessel or lesion type Associated angina: without angina Is this a current diagnosis for this admission?: Yes (7) HLD (hyperlipidemia) Qualifiers: Hyperlipidemia type: pure hypercholesterolemia Qualified Code(s): E78.00 - Pure hypercholesterolemia, unspecified Is this a current diagnosis for this admission?: Yes (8) Old AL (myocardial infarction) Is this a current diagnosis for this admission?: Yes (9) Chronic gout Qualifiers: Gout site: unspecified site Presence of tophus: without tophus Is this a current diagnosis for this admission?: Yes (10) Osteoarthritis involving multiple joints on both sides of body Is this a current diagnosis for this admission?: Yes (11) AMS (altered mental status) Is this a current diagnosis for this admission?: Yes (12) Acute respiratory acidosis Is this a current diagnosis for this admission?: Yes (13) Subclinical hypothyroidism Is this a current diagnosis for this admission?: Yes - Time Time Spent with patient: 35 or more minutes Level of Care: IMCU Medications reviewed and adjusted accordingly: Yes Anticipated discharge: Home with Homehealth Within: Other - Inpatient Certification Based on my medical assessment, after consideration of the patient's comorbidities, presenting symptoms, or acuity I expect that the services needed warrant INPATIENT care.: Yes I certify that my determination is in accordance with my understanding of Medicare's requirements for reasonable and necessary INPATIENT services [42 CFR 412.3e].: Yes Medical Necessity: Significant Comorbidiites Make Outpatient Treatment Too Risky, Need Close Monitoring Due to Risk of Patient Decompensation, Need For Continuous Telemetry Monitoring, Need for IV Antibiotics, Risk of Complication if Not Cared For in Hospital, Risk of Diagnosis Which Will Require Inpatient Eval/Care/Monitoring Post Hospital Care: D/C Electronic Tester Documentation - Plan Summary Plan Summary: Maintain on current medication management. Adjust AVAP setting for better oxygenation and respiratory response. His effusion is not enough to warrant thoracentesis. Overall prognosis remain poor. Repeat ABG and adjust NIV setting as necessary.
[2019-07-16] MEDS: ATORVASTATIN CALCIUM 40 MG TABLET PO SCH (17:28)
[2019-07-16 20:34] LABS: ARTERIAL BLOOD BASE EXCESS -0.9 mmol/L; ARTERIAL BLOOD FIO2 25%; ARTERIAL BLOOD H2CO3 1.95 mmol/L (1.05-1.35); ARTERIAL BLOOD HCO3 27.5 mmol/L (20-24); ARTERIAL BLOOD O2 SATURATION 95.2 % (94-98); ARTERIAL BLOOD PCO2 64.8 mmHg (35-45); ARTERIAL BLOOD PH 7.25 (7.35-7.45); ARTERIAL BLOOD PO2 89.8 mmHg (80-100); ARTERIAL BLOOD TOTAL CO2 29.5 mmol/L (23-27)
[2019-07-16] MEDS: DOBUTAMINE HCL/D5W 500 MG/250 ML RTUINJ IV PRN (22:11)
[2019-07-17] MEDS: PATIROMER 8.4 GM SUSP PACKET PO SCH (05:52)
[2019-07-17] MEDS: LEVOTHYROXINE SODIUM 0.025 MG TABLET PO SCH (06:01)
[2019-07-17] MEDS: PIPERACILLIN SODIUM/TAZOBACTAM 2.25 GM in NORMAL SALINE 50 ML IV SCH ×3 (06:01→21:59)
[2019-07-17] MEDS: INSULIN LISPRO 100 UNIT/ML 3 ML VIAL SUBCUT SCH ×4 (09:55→21:40)
[2019-07-17] MEDS: GLIPIZIDE 5 MG TABLET PO SCH (10:03)
[2019-07-17] MEDS: PANTOPRAZOLE SODIUM 40 MG TABLET.DR PO SCH (10:09)
[2019-07-17] MEDS: FERROUS SULFATE 325 MG TABLET PO SCH ×2 (10:09→21:59)
[2019-07-17] MEDS: ASCORBIC ACID 500 MG TABLET PO SCH (10:09)
[2019-07-17] MEDS: APIXABAN 2.5 MG TABLET PO SCH ×2 (10:09→21:59)
--- NOTE | 2019-07-17 11:20 | PDOC PROGRESS REPORT ---
Subjective Progress Note for:: 07/17/19 Subjective:: Patient seen and examined. Very alert and interactive today. Denies any complaints today. Was started on intravenous antibiotic-Zosyn. Denies chest pain. Continues to be on intravenous dobutamine at 2.5 mics per kilogram per minute. Although creatinine has not shown any definite improvement he continues to make urine. Reason For Visit: ACUTE ON CHRONIC CHF,CHRONIC A-FIB,DM TYPE 2,HTN,C Physical Exam Vital Signs: Temp Pulse Resp BP Pulse Ox 98.1 F 89 14 117/86 H 98 07/17/19 08:08 07/17/19 08:08 07/17/19 08:08 07/17/19 08:08 07/17/19 08:08 Intake & Output 07/16/19 07/17/19 07/18/19 06:59 06:59 06:59 Intake Total 912 582 50 Output Total 1200 1175 Balance -288 -593 50 Weight 84.4 kg 84.1 kg General appearance: PRESENT: no acute distress, cooperative, obese, well- developed, well-nourished Head exam: PRESENT: atraumatic, normocephalic Eye exam: PRESENT: conjunctiva pink, EOMI Mouth exam: PRESENT: moist Neck exam: PRESENT: JVD Respiratory exam: PRESENT: crackles, symmetrical, unlabored Cardiovascular exam: PRESENT: irregular rhythm, +S1, +S2, other - Left-sided ICD implant site is intact skin overlying is healthy. No edema or excoriation noted. Pulses: PRESENT: normal radial pulses GI/Abdominal exam: PRESENT: soft Rectal exam: PRESENT: deferred Musculoskeletal exam: PRESENT: normal inspection Neurological exam: PRESENT: alert, awake, oriented to person, oriented to place, oriented to situation Psychiatric exam: PRESENT: appropriate affect Skin exam: PRESENT: dry, intact, normal color Results Laboratory Results: 07/16/19 05:53 07/16/19 07:29 07/16/19 07/16/19 07/17/19 14:07 20:15 05:19 Carbonic Acid 2.44 H 1.95 H HCO3/H2CO3 Ratio 11:1 14:1 ABG pH 7.15 L* 7.25 L ABG pCO2 81.0 H* 64.8 H ABG pO2 108.7 H 89.8 ABG HCO3 27.7 H 27.5 H ABG O2 Saturation 96.2 95.2 ABG Base Excess -2.8 -0.9 FiO2 30% 25% Magnesium 1.8 07/09/19 07/09/19 07/17/19 15:38 15:38 05:19 Creatine Kinase 33 L CK-MB (CK-2) 1.89 Troponin I 0.175 NT-Pro-B Natriuret Pep 03803 H 67255 H EKG Comments: Telemetry shows atrial fibrillation with controlled ventricular response Impressions: Renal Ultrasound 07/12/19 00:00 IMPRESSION: 1. Increased echogenicity of the renal parenchyma and thinning of the renal cortices - clinical correlation for chronic medical renal disease is recommended. 2. No hydronephrosis. 3. Harris catheter within the urinary bladder. Chest X-Ray 07/15/19 08:08 IMPRESSION: CHF. No significant change. Chest Ultrasound 07/16/19 00:00 IMPRESSION: Small right pleural effusion. Assessment & Plan - Diagnosis (1) Hypertension Qualifiers: Hypertension type: essential hypertension Qualified Code(s): I10 - Essential (primary) hypertension Is this a current diagnosis for this admission?: Yes Plan: Is normotensive today. Had increase in blood pressure on dobutamine and we had a cut back on the dobutamine dose. We will watch blood pressure. (2) Chronic a-fib Is this a current diagnosis for this admission?: Yes Plan: Rate controlled. Asymptomatic Continue present therapy Systemic anticoagulation with apixaban. (3) CHF (congestive heart failure) Qualifiers: Heart failure type: combined systolic and diastolic Heart failure chronicity: acute on chronic Qualified Code(s): I50.43 - Acute on chronic combined systolic (congestive) and diastolic (congestive) heart failure Is this a current diagnosis for this admission?: Yes Plan: Overall he is perfusing better with intravenous dobutamine. He is more alert and active Extremities with minimal edema. Given the significant clinical improvement with intravenous dobutamine would like to continue it over the weekend we will watch for clinical response. (4) ICD (implantable cardioverter-defibrillator) in place Is this a current diagnosis for this admission?: Yes Plan: Site WNL - Notes Notes: Nephrology is following No significant pleural effusion by ultrasound Intravenous antibiotics for infection Continue intravenous dobutamine We will monitor over the next 24 to 48 hours to decide on dobutamine
--- NOTE | 2019-07-17 13:46 | PDOC PROGRESS REPORT ---
Subjective Progress Note for:: 07/17/19 Subjective:: Patient is more lucid and appropriate in responses today. He remain on AVAP mode NIV support. His latest ABG show some improvement. He denied any chest pain. No reported fever or chills. No nausea, vomiting, or abdominal pain. He remain on IV Zosyn. Reason For Visit: ACUTE ON CHRONIC CHF,CHRONIC A-FIB,DM TYPE 2,HTN,C Physical Exam Vital Signs: Temp Pulse Resp BP Pulse Ox 98.1 F 46 L 20 130/65 H 100 07/17/19 11:55 07/17/19 11:55 07/17/19 11:55 07/17/19 12:00 07/17/19 11:55 Intake & Output 07/16/19 07/17/19 07/18/19 06:59 06:59 06:59 Intake Total 912 582 50 Output Total 1200 1175 Balance -288 -593 50 Weight 84.4 kg 84.1 kg Physical Exam: General appearance: PRESENT: severe distress - on AVAP support Head exam: PRESENT: atraumatic, normocephalic Eye exam: PRESENT: conjunctiva pink. ABSENT: pallor, scleral icterus Respiratory exam: PRESENT: prolonged expiratory phase - at lung bases Cardiovascular exam: PRESENT: RRR, +S1, +S2, systolic murmur Murmur grade: 3 GI/Abdominal exam: PRESENT: normal bowel sounds, soft. ABSENT: distended, guarding, mass, organomegaly, rebound, tenderness : Indwelling Harris catheter in situ. Extremities exam: PRESENT: significantly resolved pedal edema Neurological exam: PRESENT: He is alert and appropriate in responses at the time of my bedside visit. Remain on AVAP Trilogy support - with severe respiratory acidosis Skin exam: PRESENT: dry, warm, other - improved blister lesion on left leg Murmur grade: 3 Results Laboratory Results: 07/16/19 05:53 07/16/19 07:29 07/16/19 07/16/19 07/17/19 14:07 20:15 05:19 Carbonic Acid 2.44 H 1.95 H HCO3/H2CO3 Ratio 11:1 14:1 ABG pH 7.15 L* 7.25 L ABG pCO2 81.0 H* 64.8 H ABG pO2 108.7 H 89.8 ABG HCO3 27.7 H 27.5 H ABG O2 Saturation 96.2 95.2 ABG Base Excess -2.8 -0.9 FiO2 30% 25% Magnesium 1.8 07/09/19 07/09/19 07/17/19 15:38 15:38 05:19 Creatine Kinase 33 L CK-MB (CK-2) 1.89 Troponin I 0.175 NT-Pro-B Natriuret Pep 73196 H 13864 H Impressions: Renal Ultrasound 07/12/19 00:00 IMPRESSION: 1. Increased echogenicity of the renal parenchyma and thinning of the renal cortices - clinical correlation for chronic medical renal disease is recommended. 2. No hydronephrosis. 3. Harris catheter within the urinary bladder. Chest X-Ray 07/15/19 08:08 IMPRESSION: CHF. No significant change. Chest Ultrasound 07/16/19 00:00 IMPRESSION: Small right pleural effusion. Assessment & Plan - Diagnosis (1) Acute on chronic combined systolic (congestive) and diastolic (congestive) heart failure Is this a current diagnosis for this admission?: Yes (2) CKD (chronic kidney disease) stage 5, GFR less than 15 ml/min Is this a current diagnosis for this admission?: Yes (3) Chronic a-fib Is this a current diagnosis for this admission?: Yes (4) Diabetes mellitus type 2 with complications Is this a current diagnosis for this admission?: Yes (5) Hypertension Qualifiers: Hypertension type: essential hypertension Qualified Code(s): I10 - Essential (primary) hypertension Is this a current diagnosis for this admission?: Yes (6) CAD (coronary atherosclerotic disease) Qualifiers: Coronary Disease-Associated Artery/Lesion type: unspecified vessel or lesion type Associated angina: without angina Is this a current diagnosis for this admission?: Yes (7) HLD (hyperlipidemia) Qualifiers: Hyperlipidemia type: pure hypercholesterolemia Qualified Code(s): E78.00 - Pure hypercholesterolemia, unspecified Is this a current diagnosis for this admission?: Yes (8) Old ID (myocardial infarction) Is this a current diagnosis for this admission?: Yes (9) Chronic gout Qualifiers: Gout site: unspecified site Presence of tophus: without tophus Is this a current diagnosis for this admission?: Yes (10) Osteoarthritis involving multiple joints on both sides of body Is this a current diagnosis for this admission?: Yes (11) AMS (altered mental status) Is this a current diagnosis for this admission?: Yes (12) Acute respiratory acidosis Is this a current diagnosis for this admission?: Yes (13) Subclinical hypothyroidism Is this a current diagnosis for this admission?: Yes - Time Time Spent with patient: 25-34 minutes Level of Care: IMCU Medications reviewed and adjusted accordingly: Yes Anticipated discharge: Home with Homehealth Within: Other - Inpatient Certification Based on my medical assessment, after consideration of the patient's comorbidities, presenting symptoms, or acuity I expect that the services needed warrant INPATIENT care.: Yes I certify that my determination is in accordance with my understanding of Medicare's requirements for reasonable and necessary INPATIENT services [42 CFR 412.3e].: Yes Medical Necessity: Significant Comorbidiites Make Outpatient Treatment Too Risky, Need Close Monitoring Due to Risk of Patient Decompensation, Need For Continuous Telemetry Monitoring, Need for IV Antibiotics, Risk of Complication if Not Cared For in Hospital, Risk of Diagnosis Which Will Require Inpatient Eval/Care/Monitoring Post Hospital Care: D/C Aboriginal Liaison Officer Documentation - Plan Summary Plan Summary: Continue current medication management and AVAP support. Repeat ABG, CBC, and CMP, in AM.
[2019-07-17] MEDS: ATORVASTATIN CALCIUM 40 MG TABLET PO SCH (17:58)
[2019-07-18] MEDS: PATIROMER 8.4 GM SUSP PACKET PO SCH (05:57)
[2019-07-18 06:12] LABS: ABSOLUTE EOSINOPHILS # (AUTO) 0.1 10^3/uL (0.0-0.6); ABSOLUTE LYMPHOCYTES (AUTO) 0.3 10^3/uL (0.5-4.7); ABSOLUTE MONOCYTES (AUTO) 0.4 10^3/uL (0.1-1.4); ABSOLUTE NEUT (AUTO) 2.9 10^3/uL (1.7-8.2); BASOPHILS % (AUTO) 0.6 % (0-2); EOSINOPHILS % (AUTO) 1.7 % (0-6); HEMATOCRIT 37.3 % (37.9-51.0); LYMPHOCYTES % (AUTO) 7.1 % (13-45); MEAN CORPUSCULAR HEMOGLOBIN 29.7 pg (27.0-33.4); MEAN CORPUSCULAR HGB CONC 32.3 g/dL (32.0-36.0); MEAN CORPUSCULAR VOLUME 92 fl (80-97); MONOCYTES % (AUTO) 11.2 % (3-13); PLATELET COUNT 114 10^3/uL (150-450); RED BLOOD COUNT 4.06 10^6/uL (4.35-5.55); RED CELL DISTRIBUTION WIDTH 17.9 % (11.5-14.0); SEGMENTED NEUTROPHILS % (AUTO) 79.4 % (42-78); TOTAL CELLS COUNTED % (AUTO) 100 %; WHITE BLOOD COUNT 3.7 10^3/uL (4.0-10.5)
[2019-07-18] MEDS: PIPERACILLIN SODIUM/TAZOBACTAM 2.25 GM in NORMAL SALINE 50 ML IV SCH ×3 (06:21→21:49)
[2019-07-18] MEDS: LEVOTHYROXINE SODIUM 0.025 MG TABLET PO SCH (06:23)
[2019-07-18 06:42] LABS: ALBUMIN 3.6 g/dL (3.5-5.0); ALKALINE PHOSPHATASE 54 U/L (38-126); ANION GAP 9 (5-19); ASPARTATE AMINO TRANSFERASE 32 U/L (17-59); BILIRUBIN,DIRECT 0.3 mg/dL (0.0-0.4); BILIRUBIN,TOTAL 0.9 mg/dL (0.2-1.3); BLOOD UREA NITROGEN 86 mg/dL (7-20); CALCIUM 10.3 mg/dL (8.4-10.2); CARBON DIOXIDE 28 mmol/L (22-30); CHLORIDE 103 mmol/L (98-107); POTASSIUM 4.9 mmol/L (3.6-5.0); TOTAL PROTEIN 6.8 g/dL (6.3-8.2)
[2019-07-18 06:53] LABS: GLUCOSE 68 mg/dL (75-110)
[2019-07-18 07:05] LABS: ARTERIAL BLOOD BASE EXCESS -2.7 mmol/L; ARTERIAL BLOOD FIO2 4 L; ARTERIAL BLOOD H2CO3 2.28 mmol/L (1.05-1.35); ARTERIAL BLOOD HCO3 27.3 mmol/L (20-24); ARTERIAL BLOOD O2 SATURATION 92.8 % (94-98); ARTERIAL BLOOD PO2 82.9 mmHg (80-100); ARTERIAL BLOOD TOTAL CO2 29.6 mmol/L (23-27)
[2019-07-18 07:08] LABS: ARTERIAL BLOOD PCO2 75.9 mmHg (35-45); ARTERIAL BLOOD PH 7.17 (7.35-7.45)
[2019-07-18] MEDS: DEXTROSE 50%-WATER SYRINGE 12.5 GM/25 ML DOSE IV PRN (08:00)
[2019-07-18] MEDS: INSULIN LISPRO 100 UNIT/ML 3 ML VIAL SUBCUT SCH ×4 (08:05→21:23)
[2019-07-18] MEDS: GLIPIZIDE 5 MG TABLET PO SCH (10:49)
[2019-07-18] MEDS: ASCORBIC ACID 500 MG TABLET PO SCH (10:50)
[2019-07-18] MEDS: PANTOPRAZOLE SODIUM 40 MG TABLET.DR PO SCH (10:50)
[2019-07-18] MEDS: APIXABAN 2.5 MG TABLET PO SCH ×2 (10:50→21:49)
[2019-07-18] MEDS: FERROUS SULFATE 325 MG TABLET PO SCH ×2 (10:50→21:49)
[2019-07-18] MEDS: DOBUTAMINE HCL/D5W 500 MG/250 ML RTUINJ IV PRN (15:06)
--- NOTE | 2019-07-18 15:16 | PDOC PROGRESS REPORT ---
Subjective Progress Note for:: 07/18/19 Subjective:: He remain lucid and appropriate in responses with continue support on AVAP mode NIV. He denied any chest pain. No reported fever or chills. No nausea, vomiting, or abdominal pain. PO intake remain poor as per nursing staff report. Reason For Visit: ACUTE ON CHRONIC CHF,CHRONIC A-FIB,DM TYPE 2,HTN,C Physical Exam Vital Signs: Temp Pulse Resp BP Pulse Ox 98.0 F 69 13 140/66 H 99 07/18/19 10:59 07/18/19 14:00 07/18/19 13:31 07/18/19 14:00 07/18/19 11:00 Intake & Output 07/17/19 07/18/19 07/19/19 06:59 06:59 06:59 Intake Total 582 850 300 Output Total 1175 925 Balance -593 -75 300 Weight 84.1 kg 80.1 kg Physical Exam: General appearance: PRESENT: severe distress - on AVAP support Head exam: PRESENT: atraumatic, normocephalic Eye exam: PRESENT: conjunctiva pink. ABSENT: pallor, scleral icterus Respiratory exam: PRESENT: prolonged expiratory phase - at lung bases Cardiovascular exam: PRESENT: RRR, +S1, +S2, systolic murmur Murmur grade: 3 GI/Abdominal exam: PRESENT: normal bowel sounds, soft. ABSENT: distended, guarding, mass, organomegaly, rebound, tenderness : Indwelling Harris catheter in situ. Extremities exam: PRESENT: significantly resolved pedal edema Neurological exam: PRESENT: He is alert and appropriate in responses at the time of my bedside visit. Remain on AVAP Trilogy support - with severe respiratory acidosis Skin exam: PRESENT: dry, warm, other - improved blister lesion on left leg Murmur grade: 3 Results Laboratory Results: 07/18/19 05:53 07/18/19 05:53 07/17/19 07/18/19 07/18/19 17:08 05:53 05:53 WBC 3.7 L RBC 4.06 L Hgb 12.0 L Hct 37.3 L MCV 92 MCH 29.7 MCHC 32.3 RDW 17.9 H Plt Count 114 L Seg Neutrophils % 79.4 H Carbonic Acid HCO3/H2CO3 Ratio ABG pH ABG pCO2 ABG pO2 ABG HCO3 ABG O2 Saturation ABG Base Excess FiO2 Sodium 139.6 Potassium 4.9 Chloride 103 Carbon Dioxide 28 Anion Gap 9 BUN 86 H Creatinine 5.64 H Est GFR ( Amer) 12 L Glucose 68 L Calcium 10.3 H Total Bilirubin 0.9 AST 32 Alkaline Phosphatase 54 Total Protein 6.8 Albumin 3.6 Stool Occult Blood NEGATIVE 07/18/19 06:25 WBC RBC Hgb Hct MCV MCH MCHC RDW Plt Count Seg Neutrophils % Carbonic Acid 2.28 H HCO3/H2CO3 Ratio 11:1 ABG pH 7.17 L* ABG pCO2 75.9 H* ABG pO2 82.9 ABG HCO3 27.3 H ABG O2 Saturation 92.8 L ABG Base Excess -2.7 FiO2 4 L Sodium Potassium Chloride Carbon Dioxide Anion Gap BUN Creatinine Est GFR ( Amer) Glucose Calcium Total Bilirubin AST Alkaline Phosphatase Total Protein Albumin Stool Occult Blood 07/09/19 07/09/19 07/17/19 15:38 15:38 05:19 Creatine Kinase 33 L CK-MB (CK-2) 1.89 Troponin I 0.175 NT-Pro-B Natriuret Pep 54655 H 13750 H Impressions: Renal Ultrasound 07/12/19 00:00 IMPRESSION: 1. Increased echogenicity of the renal parenchyma and thinning of the renal cortices - clinical correlation for chronic medical renal disease is recommended. 2. No hydronephrosis. 3. Harris catheter within the urinary bladder. Chest X-Ray 07/15/19 08:08 IMPRESSION: CHF. No significant change. Chest Ultrasound 07/16/19 00:00 IMPRESSION: Small right pleural effusion. Assessment & Plan - Diagnosis (1) Acute on chronic combined systolic (congestive) and diastolic (congestive) heart failure Is this a current diagnosis for this admission?: Yes (2) CKD (chronic kidney disease) stage 5, GFR less than 15 ml/min Is this a current diagnosis for this admission?: Yes (3) Chronic a-fib Is this a current diagnosis for this admission?: Yes (4) Diabetes mellitus type 2 with complications Is this a current diagnosis for this admission?: Yes (5) Hypertension Qualifiers: Hypertension type: essential hypertension Qualified Code(s): I10 - Essential (primary) hypertension Is this a current diagnosis for this admission?: Yes (6) CAD (coronary atherosclerotic disease) Qualifiers: Coronary Disease-Associated Artery/Lesion type: unspecified vessel or lesion type Associated angina: without angina Is this a current diagnosis for this admission?: Yes (7) HLD (hyperlipidemia) Qualifiers: Hyperlipidemia type: pure hypercholesterolemia Qualified Code(s): E78.00 - Pure hypercholesterolemia, unspecified Is this a current diagnosis for this admission?: Yes (8) Old MN (myocardial infarction) Is this a current diagnosis for this admission?: Yes (9) Chronic gout Qualifiers: Gout site: unspecified site Presence of tophus: without tophus Is this a current diagnosis for this admission?: Yes (10) Osteoarthritis involving multiple joints on both sides of body Is this a current diagnosis for this admission?: Yes (11) AMS (altered mental status) Is this a current diagnosis for this admission?: Yes (12) Acute respiratory acidosis Is this a current diagnosis for this admission?: Yes (13) Subclinical hypothyroidism Is this a current diagnosis for this admission?: Yes - Time Time Spent with patient: 25-34 minutes Level of Care: IMCU Medications reviewed and adjusted accordingly: Yes Anticipated discharge: Home with Homehealth Within: Other - Inpatient Certification Based on my medical assessment, after consideration of the patient's comorbidities, presenting symptoms, or acuity I expect that the services needed warrant INPATIENT care.: Yes I certify that my determination is in accordance with my understanding of Medicare's requirements for reasonable and necessary INPATIENT services [42 CFR 412.3e].: Yes Medical Necessity: Significant Comorbidiites Make Outpatient Treatment Too Risky, Need Close Monitoring Due to Risk of Patient Decompensation, Need For Continuous Telemetry Monitoring, Risk of Complication if Not Cared For in Hospital, Risk of Diagnosis Which Will Require Inpatient Eval/Care/Monitoring Post Hospital Care: D/C Manager Hris Documentation - Plan Summary Plan Summary: Continue current medication management. Start on Nephro oral supplementation with meals.
[2019-07-18] MEDS: ATORVASTATIN CALCIUM 40 MG TABLET PO SCH (18:33)
[2019-07-19] MEDS: LEVOTHYROXINE SODIUM 0.025 MG TABLET PO SCH (05:54)
[2019-07-19] MEDS: PIPERACILLIN SODIUM/TAZOBACTAM 2.25 GM in NORMAL SALINE 50 ML IV SCH ×3 (05:55→23:07)
[2019-07-19 06:49] LABS: ARTERIAL BLOOD BASE EXCESS -0.3 mmol/L; ARTERIAL BLOOD FIO2 25%; ARTERIAL BLOOD H2CO3 1.77 mmol/L (1.05-1.35); ARTERIAL BLOOD HCO3 27.3 mmol/L (20-24); ARTERIAL BLOOD O2 SATURATION 97.2 % (94-98); ARTERIAL BLOOD PCO2 58.8 mmHg (35-45); ARTERIAL BLOOD PH 7.29 (7.35-7.45); ARTERIAL BLOOD PO2 106.2 mmHg (80-100); ARTERIAL BLOOD TOTAL CO2 29.1 mmol/L (23-27)
[2019-07-19] MEDS: INSULIN LISPRO 100 UNIT/ML 3 ML VIAL SUBCUT SCH ×4 (08:11→22:18)
[2019-07-19] MEDS: GLIPIZIDE 5 MG TABLET PO SCH (09:18)
[2019-07-19] MEDS: APIXABAN 2.5 MG TABLET PO SCH ×2 (09:19→22:17)
[2019-07-19] MEDS: ASCORBIC ACID 500 MG TABLET PO SCH (09:19)
[2019-07-19] MEDS: PANTOPRAZOLE SODIUM 40 MG TABLET.DR PO SCH (09:19)
[2019-07-19] MEDS: PATIROMER 8.4 GM SUSP PACKET PO SCH (09:19)
[2019-07-19] MEDS: FERROUS SULFATE 325 MG TABLET PO SCH ×2 (09:19→22:17)
--- NOTE | 2019-07-19 10:53 | PDOC PROGRESS REPORT ---
Subjective Progress Note for:: 07/19/19 Subjective:: SORIN PINEDA is a 79 year old male with history of CHF, A-fib, anemia, CKD4, DM2 and HTN who was admitted with fluid overload and heart failure symptoms. For full details please see hospitalist admission note and Dr. Sarmiento's notes. In summary, he was begun on low dose dobutamine with good results. This morning he continues to be at baseline and denies new cardiac complaints. His telemetry demonstrates atrial fibrillation with episodes of rapid ventricular response. He actually feels slightly better today. Physical exam on 07/19/2019: The patient is morbidly obese. No obvious distress. Trace to 1+ pitting edema bilaterally. Reason For Visit: ACUTE ON CHRONIC CHF,CHRONIC A-FIB,DM TYPE 2,HTN,C Physical Exam Vital Signs: Temp Pulse Resp BP Pulse Ox 98.4 F 102 H 24 H 139/72 H 96 07/19/19 03:33 07/19/19 07:00 07/19/19 04:30 07/19/19 07:00 07/19/19 04:30 Intake & Output 07/18/19 07/19/19 07/20/19 06:59 06:59 06:59 Intake Total 850 865 50 Output Total 925 1025 Balance -75 -160 50 Weight 80.1 kg 77.4 kg Results Laboratory Results: 07/18/19 05:53 07/18/19 05:53 07/19/19 06:30 Carbonic Acid 1.77 H HCO3/H2CO3 Ratio 15:1 ABG pH 7.29 L ABG pCO2 58.8 H ABG pO2 106.2 H ABG HCO3 27.3 H ABG O2 Saturation 97.2 ABG Base Excess -0.3 FiO2 25% 07/09/19 07/09/19 07/17/19 15:38 15:38 05:19 Creatine Kinase 33 L CK-MB (CK-2) 1.89 Troponin I 0.175 NT-Pro-B Natriuret Pep 36962 H 72058 H Current Medication List Generic Name Dose Route Start Last Admin Trade Name Freq PRN Reason Stop Dose Admin Apixaban 2.5 mg 07/09/19 22:00 07/18/19 21:49 Eliquis 2.5 Mg Tablet PO 08/08/19 21:59 2.5 mg Q12 JENNIFER Administration Ascorbic Acid 500 mg 07/10/19 10:00 07/18/19 10:50 Vitamin C 500 Mg Tablet PO 08/09/19 09:59 500 mg DAILY JENNIFER Administration Atorvastatin Calcium 40 mg 07/09/19 18:00 07/18/19 18:33 Lipitor 40 Mg Tablet PO 08/08/19 17:59 40 mg QPM JENNIFER Administration Bisacodyl 10 mg 07/09/19 16:36 07/15/19 05:36 Dulcolax 10 Mg Supp.Rect IA 08/08/19 16:35 10 mg DAILYP PRN Administration UNRESOLVED CONSTIPATION Carvedilol 6.25 mg 07/12/19 15:26 07/13/19 10:27 Coreg 6.25 Mg Tablet PO 08/08/19 21:59 Not Given Q12 JENNIFER Dextrose 12.5 gm 07/09/19 15:30 07/18/19 08:00 Dextrose Inj 50% Syringe (25 Gm/50 Ml) IV 08/08/19 15:29 12.5 gm PRN PRN Administration FOR BG 50-69 IN ALERT PATIENT Protocol Dextrose 25 gm 07/09/19 15:30 07/16/19 07:52 Dextrose Inj 50% Syringe (25 Gm/50 Ml) IV 08/08/19 15:29 25 gm PRN PRN Administration Protocol Ergocalciferol 50,000 unit 07/09/19 17:00 Drisdol 50,000 Unit (1.25mg) Capsule PO 08/08/19 16:59 [id number] JENNIFER Ferrous Sulfate 325 mg 07/09/19 22:00 07/18/19 21:49 Feosol 325 Mg Tablet PO 08/08/19 21:59 325 mg Q12 JENNIFER Administration Furosemide 20 mg 07/13/19 18:15 07/14/19 05:15 Lasix Inj/Pf 20 Mg/2 Ml Sdv IV 08/12/19 18:14 20 mg Q12A JENNIFER Administration Glipizide 2.5 mg 07/10/19 10:00 07/18/19 10:49 Glucotrol 5 Mg Tablet PO 08/09/19 09:59 Not Given DAILY JENNIFER Glucagon 1 mg 07/09/19 15:30 Glucagen Inj 1 Mg Vial IM 08/08/19 15:29 PRN PRN EVALUATE FOR BG < 70 Protocol Glucose 15 gm 07/09/19 15:30 07/15/19 07:19 Glutose 40% Gel 15 Gm Tube PO 08/08/19 15:29 15 gm PRN PRN Administration FOR BG 50-69 IN ALERT PATIENT Protocol Glucose 30 gm 07/09/19 15:30 Glutose 40% Gel 15 Gm Tube PO 08/08/19 15:29 PRN PRN FOR BG < 50 IN ALERT PATIENT Protocol Hydralazine HCl 25 mg 07/09/19 22:00 07/12/19 13:23 Apresoline 25 Mg Tablet PO 08/08/19 21:59 Not Given Q8 JENNIFER Dobutamine HCl/Dextrose 500 mg in 250 mls @ 0 mls/hr 07/13/19 21:36 07/18/19 15:06 Dobutrex Rtu 500 Mg-D5w 250 Ml Premixed Bag IV 08/12/19 21:35 6.33 ml/hr CONTINUOUS PRN 6.33 mls/hr THIS MED IS NOT "PRN" Administration Protocol Titrate Piperacillin Sod/Tazobactam 50 mls @ 100 mls/hr 07/16/19 13:00 07/19/19 07:16 Sod 2.25 gm/ Sodium Chloride IV 07/23/19 12:59 Infused Q8 JENNIFER Infusion Insulin Human Lispro 0 - 12 unit 07/09/19 16:00 07/19/19 08:11 Humalog Insulin 100 Unit/1 Ml 3 Ml Vial SUBCUT 08/08/19 15:59 Not Given ACHS [facility] Protocol Levothyroxine Sodium 0.025 mg 07/15/19 06:00 07/19/19 05:54 Synthroid 0.025 Mg Tablet PO 08/14/19 05:59 0.025 mg Q6AM JENNIFER Administration Pantoprazole Sodium 40 mg 07/09/19 16:00 07/18/19 10:[address] Tablet PO 08/08/19 15:59 40 mg QAM JENNIFER Administration Patient Own Medication 1 each 07/10/19 10:00 Umeclidinium Brm/Vilanterol Tr [Anoro Ellipta 62.5-25 Mcg Inh] IH 08/09/19 09:59 .DAILY JENNIFER Patiromer 16.8 gm 07/19/19 08:00 Veltassa 8.4 Gm Susp Packet PO 06/10/20 07:59 QAM JENNIFER Discontinued Medications Generic Name Dose Route Start Last Admin Trade Name Luisq PRN Reason Stop Dose Admin Carvedilol 6.25 mg 07/09/19 22:00 07/12/19 09:52 Coreg 6.25 Mg Tablet PO 08/08/19 21:59 6.25 mg Q12 JENNIFER Administration Furosemide 40 mg 07/09/19 16:00 07/12/19 17:28 Lasix Inj/Pf 40 Mg/4 Ml Sdv IV 08/08/19 15:59 40 mg Q12A JENNIFER Administration Furosemide 20 mg 07/13/19 06:00 07/13/19 17:55 Lasix Inj/Pf 20 Mg/2 Ml Sdv IV 08/12/19 05:59 Not Given Q12A JENNIFER Levothyroxine Sodium 0.025 mg 07/14/19 20:16 07/14/19 20:55 Synthroid 0.025 Mg Tablet PO 07/14/19 20:17 0.025 mg NOW ONE Administration Patiromer 16.8 gm 07/10/19 06:00 07/18/19 05:57 Veltassa 8.4 Gm Susp Packet PO 08/09/19 05:59 Not Given Q6AM JENNIFER Patiromer 16.8 gm 07/10/19 09:30 07/10/19 09:36 Veltassa 8.4 Gm Susp Packet PO 07/10/19 09:31 16.8 gm NOW ONE Administration Potassium Chloride 20 meq 07/13/19 11:00 07/13/19 21:39 Klor-Con 10 Meq Tablet Er PO 07/13/19 22:01 20 meq Q12 JENNIFER Administration 07/18/19 05:53 07/18/19 05:53 MCV 92 fl (80-97) 07/18/19 05:53 MCH 29.7 pg (27.0-33.4) 07/18/19 05:53 MCHC 32.3 g/dL (32.0-36.0) 07/18/19 05:53 RDW 17.9 % (11.5-14.0) H 07/18/19 05:53 Seg Neutrophils % 79.4 % (42-78) H 07/18/19 05:53 Carbonic Acid 1.77 mmol/L (1.05-1.35) H 07/19/19 06:30 HCO3/H2CO3 Ratio 15:1 07/19/19 06:30 ABG pH 7.29 (7.35-7.45) L 07/19/19 06:30 ABG pCO2 58.8 mmHg (35-45) H 07/19/19 06:30 ABG pO2 106.2 mmHg (80-100) H 07/19/19 06:30 ABG HCO3 27.3 mmol/L (20-24) H 07/19/19 06:30 ABG O2 Saturation 97.2 % (94-98) 07/19/19 06:30 ABG Base Excess -0.3 mmol/L 07/19/19 06:30 FiO2 25% 07/19/19 06:30 Chloride 103 mmol/L (98-107) 07/18/19 05:53 Carbon Dioxide 28 mmol/L (22-30) 07/18/19 05:53 Anion Gap 9 (5-19) 07/18/19 05:53 Est GFR ( Amer) 12 (>60) L 07/18/19 05:53 Est GFR (Non-Af Amer) Cancelled 07/16/19 05:53 Glucose 68 mg/dL (75-110) L 07/18/19 05:53 Calcium 10.3 mg/dL (8.4-10.2) H 07/18/19 05:53 Phosphorus 4.4 mg/dL (2.5-4.5) 07/10/19 21:02 Magnesium 1.8 mg/dL (1.6-2.3) 07/17/19 05:19 Total Bilirubin 0.9 mg/dL (0.2-1.3) 07/18/19 05:53 AST 32 U/L (17-59) 07/18/19 05:53 Alkaline Phosphatase 54 U/L (38-126) 07/18/19 05:53 Ammonia 16.4 umol/L (9-33) 07/12/19 14:20 Total Protein 6.8 g/dL (6.3-8.2) 07/18/19 05:53 Albumin 3.6 g/dL (3.5-5.0) 07/18/19 05:53 TSH 8.59 uIU/mL (0.47-4.68) H 07/09/19 15:38 Free T4 0.93 ng/dL (0.78-2.19) 07/09/19 15:38 Thyroxine (T4) 5.59 ug/dL (5.53-11.0) 07/09/19 15:38 Free T3 pg/mL 2.27 pg/mL (2.77-5.27) L 07/09/19 15:38 Reverse T3 36.7 ng/dL (9.2-24.1) H 07/11/19 05:00 Urine Color YELLOW 07/12/19 14:55 Urine Appearance CLEAR 07/12/19 14:55 Urine pH 5.0 (5.0-9.0) 07/12/19 14:55 Ur Specific [place]ham 1.009 07/12/19 14:55 Urine Protein 30 mg/dL (NEGATIVE) H 07/12/19 14:55 Urine Glucose (UA) NEGATIVE mg/dL (NEGATIVE) 07/12/19 14:55 Urine Ketones NEGATIVE mg/dL (NEGATIVE) 07/12/19 14:55 Urine Blood SMALL (NEGATIVE) H 07/12/19 14:55 Urine Nitrite NEGATIVE (NEGATIVE) 07/12/19 14:55 Ur Leukocyte Esterase NEGATIVE (NEGATIVE) 07/12/19 14:55 Urine WBC (Auto) 1 /HPF 07/12/19 14:55 Urine RBC (Auto) 17 /HPF 07/12/19 14:55 Stool Occult Blood NEGATIVE (NEGATIVE) 07/17/19 17:08 07/09/19 07/09/19 07/17/19 15:38 15:38 05:19 Creatine Kinase 33 L CK-MB (CK-2) 1.89 Troponin I 0.175 NT-Pro-B Natriuret Pep 79760 H 06274 H Impressions: Renal Ultrasound 07/12/19 00:00 IMPRESSION: 1. Increased echogenicity of the renal parenchyma and thinning of the renal cortices - clinical correlation for chronic medical renal disease is recommended. 2. No hydronephrosis. 3. Harris catheter within the urinary bladder. Chest X-Ray 07/15/19 08:08 IMPRESSION: CHF. No significant change. Chest Ultrasound 07/16/19 00:00 IMPRESSION: Small right pleural effusion. Assessment & Plan - Diagnosis (1) ICD (implantable cardioverter-defibrillator) in place Is this a current diagnosis for this admission?: Yes Plan: We will continue with clinical follow-up. (2) Pneumonia Plan: The patient feels better. Further management per primary team. (3) Acute kidney injury superimposed on chronic kidney disease Plan: The patient is currently followed by nephrology. (4) CHF (congestive heart failure) Qualifiers: Heart failure type: combined systolic and diastolic Heart failure chronici ty: acute on chronic Qualified Code(s): I50.43 - Acute on chronic combined systolic (congestive) and diastolic (congestive) heart failure Plan: The patient continues to have a negative fluid balance. His blood pressure is now. Recommendations: -Consider discontinuing dobutamine. -If blood pressure holds after discontinuing dobutamine may restart carvedilol at 3.125 mg twice daily. -Continue to hold Lasix for now. -We will continue to follow-up with you. (5) Chronic a-fib Is this a current diagnosis for this admission?: Yes Plan: He continues to be anticoagulated without bleeding issues. His telemetry showed episodes of RVR likely secondary to the lack of beta-nixon. Recommendations: -May start low-dose carvedilol at 3.125 mg twice daily once the patient is off of dobutamine. -Continue with anticoagulation.
--- NOTE | 2019-07-19 11:35 | PDOC PROGRESS REPORT ---
<Jelena KIRK - Last Filed: 07/19/19 12:09> Subjective Reason For Visit: ACUTE ON CHRONIC CHF,CHRONIC A-FIB,DM TYPE 2,HTN,C Physical Exam Vital Signs: Temp Pulse Resp BP Pulse Ox 98.4 F 49 L 24 H 140/64 H 100 07/19/19 03:33 07/19/19 11:08 07/19/19 04:30 07/19/19 11:00 07/19/19 11:08 Intake & Output 07/18/19 07/19/19 07/20/19 06:59 06:59 06:59 Intake Total 850 865 50 Output Total 925 1025 Balance -75 -160 50 Weight 80.1 kg 77.4 kg Results Laboratory Results: 07/18/19 05:53 07/18/19 05:53 07/19/19 06:30 Carbonic Acid 1.77 H HCO3/H2CO3 Ratio 15:1 ABG pH 7.29 L ABG pCO2 58.8 H ABG pO2 106.2 H ABG HCO3 27.3 H ABG O2 Saturation 97.2 ABG Base Excess -0.3 FiO2 25% 07/09/19 07/09/19 07/17/19 15:38 15:38 05:19 Creatine Kinase 33 L CK-MB (CK-2) 1.89 Troponin I 0.175 NT-Pro-B Natriuret Pep 03413 H 77724 H Impressions: Renal Ultrasound 07/12/19 00:00 IMPRESSION: 1. Increased echogenicity of the renal parenchyma and thinning of the renal cortices - clinical correlation for chronic medical renal disease is recommended. 2. No hydronephrosis. 3. Harris catheter within the urinary bladder. Chest X-Ray 07/15/19 08:08 IMPRESSION: CHF. No significant change. Chest Ultrasound 07/16/19 00:00 IMPRESSION: Small right pleural effusion. Assessment & Plan - Diagnosis (1) Acute kidney injury superimposed on chronic kidney disease Plan: Patient was seen by me as well. This Patient was discussed with me by Mitali ROSENBERG-Fabio. At this point when I saw and examined the patient is much more wide awake and more responsive on a nasal cannula. He is off BiPAP. He is more aware of his surroundings. Reviewed blood gas which shows improvement of his PCO2. Chemistries unfortunately were not done today but yesterday was stable. At this point patient is clinically dry. I would give him gentle hydration but continue rest of the current guidelines including stoppage of diuretics as I think patient has been rather over diuresed.I ordered stat labs/chemistries on him for now and then again tomorrow. No acute indications for renal replacements. <MASSIEL HARRIS - Last Filed: 07/19/19 12:45> Subjective Progress Note for:: 07/19/19 Subjective:: Patient was found laying in his bed. He is currently doing better than he was on Friday. Since switching to AVAP and starting on antibiotics his blood gas has slowly improved. Currently has minor SOB. He denies any chest pain. Urine output continues to be good with the current dobutamine drip. Reason For Visit: ACUTE ON CHRONIC CHF,CHRONIC A-FIB,DM TYPE 2,HTN,C Physical Exam Vital Signs: Temp Pulse Resp BP Pulse Ox 98.4 F 49 L 24 H 140/64 H 100 07/19/19 03:33 07/19/19 11:08 07/19/19 04:30 07/19/19 11:00 07/19/19 11:08 Intake & Output 07/18/19 07/19/19 07/20/19 06:59 06:59 06:59 Intake Total 850 865 50 Output Total 925 1025 Balance -75 -160 50 Weight 80.1 kg 77.4 kg General appearance: PRESENT: no acute distress, well-developed, well-nourished, other - -on oxygen via NC Mouth exam: PRESENT: moist, neck supple Neck exam: ABSENT: JVD, tracheal deviation Respiratory exam: PRESENT: crackles, decreased breath sounds. ABSENT: clear to auscultation amelia, rales, rhonchi, wheezes Cardiovascular exam: PRESENT: RRR, +S1, +S2 GI/Abdominal exam: PRESENT: distended, soft. ABSENT: guarding, tenderness Extremities exam: PRESENT: pedal edema - -trace+. ABSENT: +1 edema, +2 edema Musculoskeletal exam: PRESENT: normal inspection Neurological exam: PRESENT: alert, awake, oriented to person, oriented to place, oriented to time, oriented to situation Skin exam: PRESENT: dry, intact, warm. ABSENT: cyanosis Results Laboratory Results: 07/18/19 05:53 07/18/19 05:53 07/19/19 06:30 Carbonic Acid 1.77 H HCO3/H2CO3 Ratio 15:1 ABG pH 7.29 L ABG pCO2 58.8 H ABG pO2 106.2 H ABG HCO3 27.3 H ABG O2 Saturation 97.2 ABG Base Excess -0.3 FiO2 25% 07/09/19 07/09/19 07/17/19 15:38 15:38 05:19 Creatine Kinase 33 L CK-MB (CK-2) 1.89 Troponin I 0.175 NT-Pro-B Natriuret Pep 35795 H 44339 H Impressions: Renal Ultrasound 07/12/19 00:00 IMPRESSION: 1. Increased echogenicity of the renal parenchyma and thinning of the renal cortices - clinical correlation for chronic medical renal disease is recommended. 2. No hydronephrosis. 3. Harris catheter within the urinary bladder. Chest X-Ray 07/15/19 08:08 IMPRESSION: CHF. No significant change. Chest Ultrasound 07/16/19 00:00 IMPRESSION: Small right pleural effusion. Assessment & Plan - Diagnosis (1) Hypercapnia Plan: Improving on AVAP and pip/tazo (2) Pleural effusion Plan: Was found to not be large enough to tap. Currently being fluid restricted. (3) Pneumonia Plan: on pip/tazo that is renal dosed (4) Acute kidney injury superimposed on chronic kidney disease Plan: continue off furosemide for now. I's&O's continue to be negative despite being off furosemide. Creatinine is stable. (5) Acute respiratory acidosis Is this a current diagnosis for this admission?: Yes (6) Acute systolic (congestive) heart failure Is this a current diagnosis for this admission?: Yes Plan: off diuretics, has a pleural effusion that is not big enough to tap. Fluid restricted and having negative I's&O's on dobutamine (7) AMS (altered mental status) Is this a current diagnosis for this admission?: Yes Plan: improving (8) CKD (chronic kidney disease) stage 4, GFR 15-29 ml/min Is this a current diagnosis for this admission?: Yes Plan: Baseline looks to be 4-4.3. According to Dr. Jean, who follows with him as outpatient. He sometimes ranges up to 5 for his creatinine. 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
[2019-07-19] MEDS ORDERED: NORMAL SALINE 1000 ML 1,000 ML IV PRN (11:51)
--- NOTE | 2019-07-19 11:56 | PDOC PROGRESS REPORT ---
Subjective Progress Note for:: 07/19/19 Subjective:: He is currently off AVAP support s well as IV Dobutamine infusion. He denied any chest pain. No reported fever or chills. No nausea, vomiting, or abdominal pain. Reason For Visit: ACUTE ON CHRONIC CHF,CHRONIC A-FIB,DM TYPE 2,HTN,C Physical Exam Vital Signs: Temp Pulse Resp BP Pulse Ox 98.4 F 49 L 24 H 140/64 H 100 07/19/19 03:33 07/19/19 11:08 07/19/19 04:30 07/19/19 11:00 07/19/19 11:08 Intake & Output 07/18/19 07/19/19 07/20/19 06:59 06:59 06:59 Intake Total 850 865 50 Output Total 925 1025 Balance -75 -160 50 Weight 80.1 kg 77.4 kg Physical Exam: General appearance: PRESENT: mild distress on supplemental oxygen via nasal cannula support Head exam: PRESENT: atraumatic, normocephalic Eye exam: PRESENT: conjunctiva pink. ABSENT: pallor, scleral icterus Respiratory exam: PRESENT: prolonged expiratory phase - at lung bases Cardiovascular exam: PRESENT: RRR, +S1, +S2, systolic murmur Murmur grade: 3 GI/Abdominal exam: PRESENT: normal bowel sounds, soft. ABSENT: distended, guarding, mass, organomegaly, rebound, tenderness : Indwelling Harris catheter in situ. Extremities exam: PRESENT: significantly resolved pedal edema Neurological exam: PRESENT: He is alert and appropriate in responses at the time of my bedside visit. Skin exam: PRESENT: dry, warm, other - improved blister lesion on left leg Murmur grade: 3 Results Laboratory Results: 07/18/19 05:53 07/18/19 05:53 07/19/19 06:30 Carbonic Acid 1.77 H HCO3/H2CO3 Ratio 15:1 ABG pH 7.29 L ABG pCO2 58.8 H ABG pO2 106.2 H ABG HCO3 27.3 H ABG O2 Saturation 97.2 ABG Base Excess -0.3 FiO2 25% 07/09/19 07/09/19 07/17/19 15:38 15:38 05:19 Creatine Kinase 33 L CK-MB (CK-2) 1.89 Troponin I 0.175 NT-Pro-B Natriuret Pep 34668 H 65809 H Impressions: Renal Ultrasound 07/12/19 00:00 IMPRESSION: 1. Increased echogenicity of the renal parenchyma and thinning of the renal cortices - clinical correlation for chronic medical renal disease is recommended. 2. No hydronephrosis. 3. Harris catheter within the urinary bladder. Chest X-Ray 07/15/19 08:08 IMPRESSION: CHF. No significant change. Chest Ultrasound 07/16/19 00:00 IMPRESSION: Small right pleural effusion. Assessment & Plan - Diagnosis (1) Acute on chronic combined systolic (congestive) and diastolic (congestive) heart failure Is this a current diagnosis for this admission?: Yes (2) CKD (chronic kidney disease) stage 5, GFR less than 15 ml/min Is this a current diagnosis for this admission?: Yes (3) Chronic a-fib Is this a current diagnosis for this admission?: Yes (4) Diabetes mellitus type 2 with complications Is this a current diagnosis for this admission?: Yes (5) Hypertension Qualifiers: Hypertension type: essential hypertension Qualified Code(s): I10 - Essential (primary) hypertension Is this a current diagnosis for this admission?: Yes (6) CAD (coronary atherosclerotic disease) Qualifiers: Coronary Disease-Associated Artery/Lesion type: unspecified vessel or lesion type Associated angina: without angina Is this a current diagnosis for this admission?: Yes (7) HLD (hyperlipidemia) Qualifiers: Hyperlipidemia type: pure hypercholesterolemia Qualified Code(s): E78.00 - Pure hypercholesterolemia, unspecified Is this a current diagnosis for this admission?: Yes (8) Old AL (myocardial infarction) Is this a current diagnosis for this admission?: Yes (9) Chronic gout Qualifiers: Gout site: unspecified site Presence of tophus: without tophus Is this a current diagnosis for this admission?: Yes (10) Osteoarthritis involving multiple joints on both sides of body Is this a current diagnosis for this admission?: Yes (11) AMS (altered mental status) Is this a current diagnosis for this admission?: Yes (12) Acute respiratory acidosis Is this a current diagnosis for this admission?: Yes (13) Subclinical hypothyroidism Is this a current diagnosis for this admission?: Yes - Time Time Spent with patient: 25-34 minutes Level of Care: IMCU Medications reviewed and adjusted accordingly: Yes Anticipated discharge: Home with Homehealth Within: Other - Inpatient Certification Based on my medical assessment, after consideration of the patient's comorbidities, presenting symptoms, or acuity I expect that the services needed warrant INPATIENT care.: Yes I certify that my determination is in accordance with my understanding of Medicare's requirements for reasonable and necessary INPATIENT services [42 CFR 412.3e].: Yes Medical Necessity: Significant Comorbidiites Make Outpatient Treatment Too Risky, Need Close Monitoring Due to Risk of Patient Decompensation, Need For Continuous Telemetry Monitoring, Need for IV Antibiotics, Risk of Complication if Not Cared For in Hospital, Risk of Diagnosis Which Will Require Inpatient Eval/Care/Monitoring Post Hospital Care: D/C [employer] Documentation - Plan Summary Plan Summary: Continue to monitor his response to D/C IV Dobutamine infusion with regard to his blood pressure. Maintain on all other current medication management. Maintain on BiPAP support while sleeping in view of report that patient has history of obstructive sleep apnea but refused to attend titration study and CPAP machine prior to his admission.
[2019-07-19 13:14] LABS: ANION GAP 8 (5-19); BLOOD UREA NITROGEN 89 mg/dL (7-20); CALCIUM 10.3 mg/dL (8.4-10.2); CARBON DIOXIDE 27 mmol/L (22-30); CHLORIDE 103 mmol/L (98-107); GLUCOSE 118 mg/dL (75-110); POTASSIUM 4.9 mmol/L (3.6-5.0)
[2019-07-19] MEDS: ATORVASTATIN CALCIUM 40 MG TABLET PO SCH (17:09)
[2019-07-20] MEDS: PIPERACILLIN SODIUM/TAZOBACTAM 2.25 GM in NORMAL SALINE 50 ML IV SCH ×3 (05:10→21:38)
[2019-07-20] MEDS: LEVOTHYROXINE SODIUM 0.025 MG TABLET PO SCH (05:10)
[2019-07-20 07:20] LABS: ANION GAP 11 (5-19); BLOOD UREA NITROGEN 82 mg/dL (7-20); CALCIUM 10.2 mg/dL (8.4-10.2); CARBON DIOXIDE 24 mmol/L (22-30); CHLORIDE 105 mmol/L (98-107); GLUCOSE 97 mg/dL (75-110); POTASSIUM 4.7 mmol/L (3.6-5.0)
[2019-07-20] MEDS: DOBUTAMINE HCL/D5W 500 MG/250 ML RTUINJ IV PRN (07:33)
[2019-07-20] MEDS: INSULIN LISPRO 100 UNIT/ML 3 ML VIAL SUBCUT SCH ×4 (07:50→21:34)
--- NOTE | 2019-07-20 08:57 | PDOC PROGRESS REPORT ---
Subjective Progress Note for:: 07/20/19 Subjective:: SORIN PINEDA is a 79 year old male with history of CHF, A-fib, anemia, CKD4, DM2 and HTN who was admitted with fluid overload and heart failure symptoms. For full details please see hospitalist admission note and Dr. Sarmiento's notes. In summary, he was begun on low dose dobutamine with good results. This morning he continues to be at baseline and denies new cardiac complaints. His telemetry demonstrates atrial fibrillation with episodes of rapid ventricular response. He actually feels slightly better today. 07/20/2019: The patient had an uneventful night. His creatinine continues to be stable. He continues to be on low-dose dobutamine and his beta-nixon continues to be on hold which has resulted in an elevated heart rate while in bed with his telem etry showing atrial fibrillation with heart rates between 90 and 95 bpm and some PVCs. He had an uneventful night last night and has no cardiac complaints today. Physical exam on 07/20/2019: GENERAL: Pleasant and conversational. Morbidly obese. Oriented x3 with normal mood. Not in acute distress. Well groomed and well developed. HEENT: Normocephalic, atraumatic. Pupils equal. Sclerae anicteric. Oropharynx moist. NECK: No JVD. No carotid bruits. LUNGS: Clear to auscultation bilaterally. Normal respiratory effort without the use of accessory muscles or intercostal retractions. CARDIOVASCULAR: Irregularly irregular rate and rhythm, normal S1 and S2 without murmurs, rubs, or gallops. PMI not displaced. EXTREMITIES: The right leg is wrapped due to skin breakdown, there is no edema on the left leg. SKIN: No lesions or rashes. MUSCULOSKELETAL: No chest tenderness to palpation. NEUROLOGIC: Nonfocal. No gross sensory or motor deficits bilateral upper or lower extremities. Reason For Visit: ACUTE ON CHRONIC CHF,CHRONIC A-FIB,DM TYPE 2,HTN,C Physical Exam Vital Signs: Temp Pulse Resp BP Pulse Ox 98.2 F 91 14 123/71 96 07/19/19 19:34 07/20/19 06:00 07/20/19 03:19 07/20/19 06:00 07/20/19 03:19 Intake & Output 07/18/19 07/19/19 07/20/19 06:59 06:59 06:59 Intake Total 330 054 6177 Output Total 921 1025 765 Balance -75 -160 935 Weight 80.1 kg 77.4 kg 76.2 kg Results Laboratory Results: 07/18/19 05:53 07/19/19 12:15 07/19/19 07/19/19 06:30 12:15 Carbonic Acid 1.77 H HCO3/H2CO3 Ratio 15:1 ABG pH 7.29 L ABG pCO2 58.8 H ABG pO2 106.2 H ABG HCO3 27.3 H ABG O2 Saturation 97.2 ABG Base Excess -0.3 FiO2 25% Sodium 138.4 Potassium 4.9 Chloride 103 Carbon Dioxide 27 Anion Gap 8 BUN 89 H Creatinine 4.98 H Est GFR ( Amer) 14 L Glucose 118 H Calcium 10.3 H 07/09/19 07/09/19 07/17/19 15:38 15:38 05:19 Creatine Kinase 33 L CK-MB (CK-2) 1.89 Troponin I 0.175 NT-Pro-B Natriuret Pep 97887 H 87354 H Impressions: Renal Ultrasound 07/12/19 00:00 IMPRESSION: 1. Increased echogenicity of the renal parenchyma and thinning of the renal cortices - clinical correlation for chronic medical renal disease is recommended. 2. No hydronephrosis. 3. Harris catheter within the urinary bladder. Chest X-Ray 07/15/19 08:08 IMPRESSION: CHF. No significant change. Chest Ultrasound 07/16/19 00:00 IMPRESSION: Small right pleural effusion. 07/18/19 05:53 07/19/19 12:15 MCV 92 fl (80-97) 07/18/19 05:53 MCH 29.7 pg (27.0-33.4) 07/18/19 05:53 MCHC 32.3 g/dL (32.0-36.0) 07/18/19 05:53 RDW 17.9 % (11.5-14.0) H 07/18/19 05:53 Seg Neutrophils % 79.4 % (42-78) H 07/18/19 05:53 Carbonic Acid 1.77 mmol/L (1.05-1.35) H 07/19/19 06:30 HCO3/H2CO3 Ratio 15:1 07/19/19 06:30 ABG pH 7.29 (7.35-7.45) L 07/19/19 06:30 ABG pCO2 58.8 mmHg (35-45) H 07/19/19 06:30 ABG pO2 106.2 mmHg (80-100) H 07/19/19 06:30 ABG HCO3 27.3 mmol/L (20-24) H 07/19/19 06:30 ABG O2 Saturation 97.2 % (94-98) 07/19/19 06:30 ABG Base Excess -0.3 mmol/L 07/19/19 06:30 FiO2 25% 07/19/19 06:30 Chloride 103 mmol/L (98-107) 07/19/19 12:15 Carbon Dioxide 27 mmol/L (22-30) 07/19/19 12:15 Anion Gap 8 (5-19) 07/19/19 12:15 Est GFR ( Amer) 14 (>60) L 07/19/19 12:15 Est GFR (Non-Af Amer) Cancelled 07/16/19 05:53 Glucose 118 mg/dL (75-110) H 07/19/19 12:15 Calcium 10.3 mg/dL (8.4-10.2) H 07/19/19 12:15 Phosphorus 4.4 mg/dL (2.5-4.5) 07/10/19 21:02 Magnesium 1.8 mg/dL (1.6-2.3) 07/17/19 05:19 Total Bilirubin 0.9 mg/dL (0.2-1.3) 07/18/19 05:53 AST 32 U/L (17-59) 07/18/19 05:53 Alkaline Phosphatase 54 U/L (38-126) 07/18/19 05:53 Ammonia 16.4 umol/L (9-33) 07/12/19 14:20 Total Protein 6.8 g/dL (6.3-8.2) 07/18/19 05:53 Albumin 3.6 g/dL (3.5-5.0) 07/18/19 05:53 TSH 8.59 uIU/mL (0.47-4.68) H 07/09/19 15:38 Free T4 0.93 ng/dL (0.78-2.19) 07/09/19 15:38 Thyroxine (T4) 5.59 ug/dL (5.53-11.0) 07/09/19 15:38 Free T3 pg/mL 2.27 pg/mL (2.77-5.27) L 07/09/19 15:38 Reverse T3 36.7 ng/dL (9.2-24.1) H 07/11/19 05:00 Urine Color YELLOW 07/12/19 14:55 Urine Appearance CLEAR 07/12/19 14:55 Urine pH 5.0 (5.0-9.0) 07/12/19 14:55 Ur Specific [place] 1.009 07/12/19 14:55 Urine Protein 30 mg/dL (NEGATIVE) H 07/12/19 14:55 Urine Glucose (UA) NEGATIVE mg/dL (NEGATIVE) 07/12/19 14:55 Urine Ketones NEGATIVE mg/dL (NEGATIVE) 07/12/19 14:55 Urine Blood SMALL (NEGATIVE) H 07/12/19 14:55 Urine Nitrite NEGATIVE (NEGATIVE) 07/12/19 14:55 Ur Leukocyte Esterase NEGATIVE (NEGATIVE) 07/12/19 14:55 Urine WBC (Auto) 1 /HPF 07/12/19 14:55 Urine RBC (Auto) 17 /HPF 07/12/19 14:55 Stool Occult Blood NEGATIVE (NEGATIVE) 07/17/19 17:08 07/09/19 07/09/19 07/17/19 15:38 15:38 05:19 Creatine Kinase 33 L CK-MB (CK-2) 1.89 Troponin I 0.175 NT-Pro-B Natriuret Pep 00392 H 01449 H Current Medication List Generic Name Dose Route Start Last Admin Trade Name Luisq PRN Reason Stop Dose Admin Apixaban 2.5 mg 07/09/19 22:00 07/19/19 22:17 Eliquis 2.5 Mg Tablet PO 08/08/19 21:59 2.5 mg Q12 JENNIFER Administration Ascorbic Acid 500 mg 07/10/19 10:00 07/19/19 09:19 Vitamin C 500 Mg Tablet PO 08/09/19 09:59 500 mg DAILY JENNIFER Administration Atorvastatin Calcium 40 mg 07/09/19 18:00 07/19/19 17:09 Lipitor 40 Mg Tablet PO 08/08/19 17:59 40 mg QPM JENNIFER Administration Bisacodyl 10 mg 07/09/19 16:36 07/15/19 05:36 Dulcolax [address] 08/08/19 16:35 10 mg DAILYP PRN Administration UNRESOLVED CONSTIPATION Carvedilol 6.25 mg 07/12/19 15:26 07/13/19 10:27 Coreg 6.25 Mg Tablet PO 08/08/19 21:59 Not Given Q12 JENNIFER Dextrose 12.5 gm 07/09/19 15:30 07/18/19 08:00 Dextrose Inj 50% Syringe (25 Gm/50 Ml) IV 08/08/19 15:29 12.5 gm PRN PRN Administration FOR BG 50-69 IN ALERT PATIENT Protocol Dextrose 25 gm 07/09/19 15:30 07/16/19 07:52 Dextrose Inj 50% Syringe (25 Gm/50 Ml) IV 08/08/19 15:29 25 gm PRN PRN Administration Protocol Ergocalciferol 50,000 unit 07/09/19 17:00 Drisdol 50,000 Unit (1.25mg) Capsule PO 08/08/19 16:59 [id number] JENNIFER Ferrous Sulfate 325 mg 07/09/19 22:00 07/19/19 22:17 Feosol 325 Mg Tablet PO 08/08/19 21:59 325 mg Q12 JENNIFER Administration Furosemide 20 mg 07/13/19 18:15 07/14/19 05:15 Lasix Inj/Pf 20 Mg/2 Ml Sdv IV 08/12/19 18:14 20 mg Q12A JENNIFER Administration Glipizide 2.5 mg 07/10/19 10:00 07/19/19 09:18 Glucotrol 5 Mg Tablet PO 08/09/19 09:59 Not Given DAILY JENNIFER Glucagon 1 mg 07/09/19 15:30 Glucagen Inj 1 Mg Vial IM 08/08/19 15:29 PRN PRN EVALUATE FOR BG < 70 Protocol Glucose 15 gm 07/09/19 15:30 07/15/19 07:19 Glutose 40% Gel 15 Gm Tube PO 08/08/19 15:29 15 gm PRN PRN Administration FOR BG 50-69 IN ALERT PATIENT Protocol Glucose 30 gm 07/09/19 15:30 Glutose 40% Gel 15 Gm Tube PO 08/08/19 15:29 PRN PRN FOR BG < 50 IN ALERT PATIENT Protocol Hydralazine HCl 25 mg 07/09/19 22:00 07/12/19 13:23 Apresoline 25 Mg Tablet PO 08/08/19 21:59 Not Given Q8 JENNIFER Dobutamine HCl/Dextrose 500 mg in 250 mls @ 0 mls/hr 07/13/19 21:36 07/18/19 15:06 Dobutrex Rtu 500 Mg-D5w 250 Ml Premixed Bag IV 08/12/19 21:35 6.33 ml/hr CONTINUOUS PRN 6.33 mls/hr THIS MED IS NOT "PRN" Administration Protocol Titrate Piperacillin Sod/Tazobactam 50 mls @ 100 mls/hr 07/16/19 13:00 07/20/19 05:40 Sod 2.25 gm/ Sodium Chloride IV 07/23/19 12:59 Infused Q8 JENNIFER Infusion Insulin Human Lispro 0 - 12 unit 07/09/19 16:00 07/19/19 22:18 Humalog Insulin 100 Unit/1 Ml 3 Ml Vial SUBCUT 08/08/19 15:59 Not Given ACHS JENNIFER Protocol Levothyroxine Sodium 0.025 mg 07/15/19 06:00 07/20/19 05:10 Synthroid 0.025 Mg Tablet PO 08/14/19 05:59 0.025 mg Q6AM JENNIFER Administration Pantoprazole Sodium 40 mg 07/09/19 16:00 07/19/19 09:[address] Tablet PO 08/08/19 15:59 40 mg QAM JENNIFER Administration Patient Own Medication 1 each 07/10/19 10:00 Umeclidinium Brm/Vilanterol Tr [Anoro Ellipta 62.5-25 Mcg Inh] IH 08/09/19 09:59 .DAILY JENNIFER Patiromer 16.8 gm 07/19/19 08:00 07/19/19 09:19 Veltassa 8.4 Gm Susp Packet PO 08/18/19 07:59 16.8 gm QAM JENNIFER Administration Discontinued Medications Generic Name Dose Route Start Last Admin Trade Name Freq PRN Reason Stop Dose Admin Carvedilol 6.25 mg 07/09/19 22:00 07/12/19 09:52 Coreg 6.25 Mg Tablet PO 08/08/19 21:59 6.25 mg Q12 JENNIFER Administration Furosemide 40 mg 07/09/19 16:00 07/12/19 17:28 Lasix Inj/Pf 40 Mg/4 Ml Sdv IV 08/08/19 15:59 40 mg Q12A JENNIFER Administration Furosemide 20 mg 07/13/19 06:00 07/13/19 17:55 Lasix Inj/Pf 20 Mg/2 Ml Sdv IV 08/12/19 05:59 Not Given Q12A JENNIFER Sodium Chloride 1,000 mls @ 100 mls/hr 07/19/19 11:51 07/20/19 00:02 Nacl 0.9% 1000 Ml Iv Soln IV Infused CONTINUOUS PRN Infusion THIS MED IS NOT "PRN" Levothyroxine Sodium 0.025 mg 07/14/19 20:16 07/14/19 20:55 Synthroid 0.025 Mg Tablet PO 07/14/19 20:17 0.025 mg NOW ONE Administration Patiromer 16.8 gm 07/10/19 06:00 07/18/19 05:57 Veltassa 8.4 Gm Susp Packet PO 08/09/19 05:59 Not Given Q6AM JENNIFER Patiromer 16.8 gm 07/10/19 09:30 07/10/19 09:36 Veltassa 8.4 Gm Susp Packet PO 07/10/19 09:31 16.8 gm NOW ONE Administration Potassium Chloride 20 meq 07/13/19 11:00 07/13/19 21:39 Klor-Con 10 Meq Tablet Er PO 07/13/19 22:01 20 meq Q12 JENNIFER Administration Assessment & Plan - Diagnosis (1) ICD (implantable cardioverter-defibrillator) in place Is this a current diagnosis for this admission?: Yes Plan: We will continue with clinical follow-up. (2) Pneumonia Plan: The patient feels better. Further management per primary team. He continues to be on antibiotics. (3) Acute kidney injury superimposed on chronic kidney disease Plan: His creatinine continues to be stable as of yesterday. He is followed by nephrology. (4) CHF (congestive heart failure) Qualifiers: Heart failure type: combined systolic and diastolic Heart failure chronicity: acute on chronic Qualified Code(s): I50.43 - Acute on chronic combined systolic (congestive) and diastolic (congestive) heart failure Is this a current diagnosis for this admission?: Yes Plan: The patient continues to have a negative fluid balance and continues to be asymptomatic. Recommendations: -Consider discontinuing dobutamine. -Continue with current medical management. -Continue to hold Lasix for now. -Consider adding LISA inhibitor or ARB if okay with nephrology. -We will continue to follow-up with you. (5) Chronic a-fib Is this a current diagnosis for this admission?: Yes Plan: He continues to be anticoagulated without bleeding issues. His telemetry showed episodes of RVR likely secondary to the lack of beta-nixon. Recommendations: -May start low-dose carvedilol at 3.125 mg twice daily once the patient is off of dobutamine with close attention to his blood pressure. -Continue with anticoagulation.
[2019-07-20] MEDS: PANTOPRAZOLE SODIUM 40 MG TABLET.DR PO SCH (09:08)
[2019-07-20] MEDS: ASCORBIC ACID 500 MG TABLET PO SCH (09:08)
[2019-07-20] MEDS: FERROUS SULFATE 325 MG TABLET PO SCH ×2 (09:09→21:38)
[2019-07-20] MEDS: APIXABAN 2.5 MG TABLET PO SCH ×2 (09:09→21:38)
[2019-07-20] MEDS: PATIROMER 8.4 GM SUSP PACKET PO SCH (09:09)
[2019-07-20] MEDS: GLIPIZIDE 5 MG TABLET PO SCH (09:09)
--- NOTE | 2019-07-20 11:37 | PDOC PROGRESS REPORT ---
Subjective Progress Note for:: 07/20/19 Subjective:: Patient was seen today sitting up in his bed. At the time he had just gotten down working with physical therapy. Currently claiming to be feeling well. No increased sob with the extra fluids he was given yesterday. Continues with good urine output. Reason For Visit: ACUTE ON CHRONIC CHF,CHRONIC A-FIB,DM TYPE 2,HTN,C Physical Exam Vital Signs: Temp Pulse Resp BP Pulse Ox 98.1 F 83 14 127/68 H 100 07/20/19 07:35 07/20/19 11:00 07/20/19 03:19 07/20/19 11:00 07/20/19 07:35 Intake & Output 07/19/19 07/20/19 07/21/19 06:59 06:59 06:59 Intake Total 865 2307 Output Total 1025 1015 Balance -160 1292 Weight 77.4 kg 76.2 kg General appearance: PRESENT: no acute distress, well-developed, well-nourished Mouth exam: PRESENT: moist, neck supple Neck exam: ABSENT: JVD, tracheal deviation Respiratory exam: PRESENT: crackles - -bases, decreased breath sounds. ABSENT: clear to auscultation amelia, rales, rhonchi, wheezes Cardiovascular exam: PRESENT: RRR, +S1, +S2 GI/Abdominal exam: PRESENT: distended, soft. ABSENT: guarding, tenderness Extremities exam: PRESENT: pedal edema - -trace+. ABSENT: +1 edema, +2 edema Musculoskeletal exam: PRESENT: normal inspection. ABSENT: tenderness Neurological exam: PRESENT: alert, awake, oriented to person, oriented to place, oriented to time, oriented to situation Psychiatric exam: PRESENT: appropriate affect, normal mood Skin exam: PRESENT: dry, intact, warm. ABSENT: cyanosis Results Laboratory Results: 07/18/19 05:53 07/20/19 06:10 07/19/19 07/20/19 12:15 06:10 Sodium 138.4 139.6 Potassium 4.9 4.7 Chloride 103 105 Carbon Dioxide 27 24 Anion Gap 8 11 BUN 89 H 82 H Creatinine 4.98 H 5.05 H Est GFR ( Amer) 14 L 13 L Glucose 118 H 97 Calcium 10.3 H 10.2 05/01/20 05/01/20 05/09/20 15:38 15:38 05:19 Creatine Kinase 33 L CK-MB (CK-2) 1.89 Troponin I 0.175 NT-Pro-B Natriuret Pep 68898 H 66164 H Impressions: Renal Ultrasound 07/12/19 00:00 IMPRESSION: 1. Increased echogenicity of the renal parenchyma and thinning of the renal cortices - clinical correlation for chronic medical renal disease is recommended. 2. No hydronephrosis. 3. Harris catheter within the urinary bladder. Chest X-Ray 07/15/19 08:08 IMPRESSION: CHF. No significant change. Chest Ultrasound 07/16/19 00:00 IMPRESSION: Small right pleural effusion. Assessment & Plan - Diagnosis (1) Hypercapnia Plan: getting a repeat blood gas to see if he keeps improving (2) Pneumonia Plan: on pip/tazo that is renal dosed (3) Acute kidney injury superimposed on chronic kidney disease Plan: continue off furosemide for now. I's&O's continue to be negative despite being off furosemide. Creatinine is slightly improved. BUN went down after receiving IV fluids, which were just finished this AM. Will reassess creatinine and BUN before giving more fluids. (4) Pleural effusion Plan: Was found to not be large enough to tap. Currently being fluid restricted. (5) Acute respiratory acidosis Is this a current diagnosis for this admission?: Yes (6) Acute systolic (congestive) heart failure Is this a current diagnosis for this admission?: Yes Plan: off diuretics, has a pleural effusion that is not big enough to tap. Fluid restricted and having negative I's&O's on dobutamine (7) AMS (altered mental status) Is this a current diagnosis for this admission?: Yes Plan: improving (8) CKD (chronic kidney disease) stage 4, GFR 15-29 ml/min Is this a current diagnosis for this admission?: Yes Plan: Baseline looks to be 4-4.3. According to Dr. Jean, who follows with him as outpatient. He sometimes ranges up to 5 for his creatinine. 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
[2019-07-20 11:47] LABS: ARTERIAL BLOOD FIO2 4L; ARTERIAL BLOOD H2CO3 2.22 mmol/L (1.05-1.35); ARTERIAL BLOOD HCO3 26.8 mmol/L (20-24); ARTERIAL BLOOD O2 SATURATION 97.4 % (94-98); ARTERIAL BLOOD PO2 123.5 mmHg (80-100)
[2019-07-20 11:51] LABS: ARTERIAL BLOOD PCO2 73.9 mmHg (35-45); ARTERIAL BLOOD PH 7.18 (7.35-7.45)
[2019-07-20] MEDS: ATORVASTATIN CALCIUM 40 MG TABLET PO SCH (17:05)
--- NOTE | 2019-07-20 18:52 | PDOC PROGRESS REPORT ---
Subjective Progress Note for:: 07/20/19 Subjective:: Patient denied any chest pain. Remain on supplemental oxygen via nasal cannula and BiPAP support while sleeping. No reported fever or chills. No nausea, vomiting, or abdominal pain. Reason For Visit: ACUTE ON CHRONIC CHF,CHRONIC A-FIB,DM TYPE 2,HTN,C Physical Exam Vital Signs: Temp Pulse Resp BP Pulse Ox 97.7 F 73 19 127/58 H 100 07/20/19 16:39 07/20/19 18:00 07/20/19 12:34 07/20/19 18:00 07/20/19 16:39 Intake & Output 07/19/19 07/20/19 07/21/19 06:59 06:59 06:59 Intake Total 865 2307 545 Output Total 1025 1015 Balance -160 1292 545 Weight 77.4 kg 76.2 kg Physical Exam: General appearance: PRESENT: mild distress on supplemental oxygen via nasal cannula support Head exam: PRESENT: atraumatic, normocephalic Eye exam: PRESENT: conjunctiva pink. ABSENT: pallor, scleral icterus Respiratory exam: PRESENT: prolonged expiratory phase - at lung bases Cardiovascular exam: PRESENT: RRR, +S1, +S2, systolic murmur Murmur grade: 3 GI/Abdominal exam: PRESENT: normal bowel sounds, soft. ABSENT: distended, guarding, mass, organomegaly, rebound, tenderness : Indwelling Harris catheter in situ. Extremities exam: PRESENT: significantly resolved pedal edema Neurological exam: PRESENT: He is alert and appropriate in responses at the time of my bedside visit. Skin exam: PRESENT: dry, warm, other - improved blister lesion on left leg Murmur grade: 3 Results Laboratory Results: 07/18/19 05:53 07/20/19 06:10 07/20/19 07/20/19 06:10 11:38 Carbonic Acid 2.22 H HCO3/H2CO3 Ratio 12:1 ABG pH 7.18 L* ABG pCO2 73.9 H* ABG pO2 123.5 H ABG HCO3 26.8 H ABG O2 Saturation 97.4 ABG Base Excess -3.0 FiO2 4L Sodium 139.6 Potassium 4.7 Chloride 105 Carbon Dioxide 24 Anion Gap 11 BUN 82 H Creatinine 5.05 H Est GFR ( Amer) 13 L Glucose 97 Calcium 10.2 07/09/19 07/09/19 07/17/19 15:38 15:38 05:19 Creatine Kinase 33 L CK-MB (CK-2) 1.89 Troponin I 0.175 NT-Pro-B Natriuret Pep 36565 H 18330 H Impressions: Renal Ultrasound 07/12/19 00:00 IMPRESSION: 1. Increased echogenicity of the renal parenchyma and thinning of the renal cortices - clinical correlation for chronic medical renal disease is recommended. 2. No hydronephrosis. 3. Harris catheter within the urinary bladder. Chest X-Ray 07/15/19 08:08 IMPRESSION: CHF. No significant change. Chest Ultrasound 07/16/19 00:00 IMPRESSION: Small right pleural effusion. Assessment & Plan - Diagnosis (1) Acute on chronic combined systolic (congestive) and diastolic (congestive) heart failure Is this a current diagnosis for this admission?: Yes (2) CKD (chronic kidney disease) stage 5, GFR less than 15 ml/min Is this a current diagnosis for this admission?: Yes (3) Chronic a-fib Is this a current diagnosis for this admission?: Yes (4) Diabetes mellitus type 2 with complications Is this a current diagnosis for this admission?: Yes (5) Hypertension Qualifiers: Hypertension type: essential hypertension Qualified Code(s): I10 - Essential (primary) hypertension Is this a current diagnosis for this admission?: Yes (6) CAD (coronary atherosclerotic disease) Qualifiers: Coronary Disease-Associated Artery/Lesion type: unspecified vessel or lesion type Associated angina: without angina Is this a current diagnosis for this admission?: Yes (7) HLD (hyperlipidemia) Qualifiers: Hyperlipidemia type: pure hypercholesterolemia Qualified Code(s): E78.00 - Pure hypercholesterolemia, unspecified Is this a current diagnosis for this admission?: Yes (8) Old [place] (myocardial infarction) Is this a current diagnosis for this admission?: Yes (9) Chronic gout Qualifiers: Gout site: unspecified site Presence of tophus: without tophus Is this a current diagnosis for this admission?: Yes (10) Osteoarthritis involving multiple joints on both sides of body Is this a current diagnosis for this admission?: Yes (11) AMS (altered mental status) Is this a current diagnosis for this admission?: Yes (12) Acute respiratory acidosis Is this a current diagnosis for this admission?: Yes (13) Subclinical hypothyroidism Is this a current diagnosis for this admission?: Yes - Time Time Spent with patient: 25-34 minutes Level of Care: IMCU Medications reviewed and adjusted accordingly: Yes Anticipated discharge: Home with Homehealth Within: Other - Inpatient Certification Based on my medical assessment, after consideration of the patient's comorbidities, presenting symptoms, or acuity I expect that the services needed warrant INPATIENT care.: Yes I certify that my determination is in accordance with my understanding of Medicare's requirements for reasonable and necessary INPATIENT services [42 CFR 412.3e].: Yes Medical Necessity: Significant Comorbidiites Make Outpatient Treatment Too Risky, Need Close Monitoring Due to Risk of Patient Decompensation, Need For Continuous Telemetry Monitoring, Need for IV Antibiotics, Risk of Complication if Not Cared For in Hospital, Risk of Diagnosis Which Will Require Inpatient Eval/Care/Monitoring Post Hospital Care: D/C Wildlife Technician Documentation - Plan Summary Plan Summary: D/C IV Dobutamine infusion. Continue all other current medication management. Patient may be getting too much supplemental oxygen in view of his hyercapnia with PO2 at 123 mmHg.
[2019-07-21] MEDS: PIPERACILLIN SODIUM/TAZOBACTAM 2.25 GM in NORMAL SALINE 50 ML IV SCH ×3 (05:34→21:55)
[2019-07-21] MEDS: LEVOTHYROXINE SODIUM 0.025 MG TABLET PO SCH (05:35)
--- NOTE | 2019-07-21 08:40 | PDOC PROGRESS REPORT ---
Subjective Progress Note for:: 07/21/19 Subjective:: SORIN PINEDA is a 79 year old male with history of CHF, A-fib, anemia, CKD4, DM2 and HTN who was admitted with fluid overload and heart failure symptoms. For full details please see hospitalist admission note and Dr. Sarmiento's notes. In summary, he was begun on low dose dobutamine with good results. This morning he continues to be at baseline and denies new cardiac complaints. His telemetry demonstrates atrial fibrillation with episodes of rapid ventricular response. He actually feels slightly better today. 07/21/2019: The patient had an uneventful night. His creatinine continues to be stable. His dobutamine was discontinued yesterday and he continues to be off of his beta-nixon mainly because of episodes of hypotension. This morning he has no cardiac complaints. His telemetry showing atrial fibrillation with heart rates between 90 and 95 bpm and some PVCs. Physical exam on 07/21/2019: GENERAL: Pleasant and conversational. Morbidly obese. Oriented x3 with normal mood. Not in acute distress. Well groomed and well developed. HEENT: Normocephalic, atraumatic. Pupils equal. Sclerae anicteric. Oropharynx moist. NECK: No JVD. No carotid bruits. LUNGS: Clear to auscultation bilaterally. Normal respiratory effort without the use of accessory muscles or intercostal retractions. CARDIOVASCULAR: Irregularly irregular rate and rhythm, normal S1 and S2 without murmurs, rubs, or gallops. PMI not displaced. EXTREMITIES: The right leg is wrapped due to skin breakdown, there is no edema on the left leg. SKIN: No lesions or rashes. MUSCULOSKELETAL: No chest tenderness to palpation. NEUROLOGIC: Nonfocal. No gross sensory or motor deficits bilateral upper or lower extremities. Reason For Visit: ACUTE ON CHRONIC CHF,CHRONIC A-FIB,DM TYPE 2,HTN,C Physical Exam Vital Signs: Temp Pulse Resp BP Pulse Ox 97.7 F 85 20 113/61 100 07/20/19 23:16 07/21/19 02:00 07/20/19 23:16 07/20/19 23:16 07/20/19 23:16 Intake & Output 07/19/19 07/20/19 07/21/19 06:59 06:59 06:59 Intake Total 865 2307 1149 Output Total 1025 1015 475 Balance -160 2662 674 Weight 77.4 kg 76.2 kg Results Laboratory Results: 07/18/19 05:53 07/20/19 06:10 07/20/19 07/20/19 06:10 11:38 Carbonic Acid 2.22 H HCO3/H2CO3 Ratio 12:1 ABG pH 7.18 L* ABG pCO2 73.9 H* ABG pO2 123.5 H ABG HCO3 26.8 H ABG O2 Saturation 97.4 ABG Base Excess -3.0 FiO2 4L Sodium 139.6 Potassium 4.7 Chloride 105 Carbon Dioxide 24 Anion Gap 11 BUN 82 H Creatinine 5.05 H Est GFR ( Amer) 13 L Glucose 97 Calcium 10.2 07/09/19 07/09/19 07/17/19 15:38 15:38 05:19 Creatine Kinase 33 L CK-MB (CK-2) 1.89 Troponin I 0.175 NT-Pro-B Natriuret Pep 66007 H 08911 H Impressions: Renal Ultrasound 07/12/19 00:00 IMPRESSION: 1. Increased echogenicity of the renal parenchyma and thinning of the renal cortices - clinical correlation for chronic medical renal disease is recommended. 2. No hydronephrosis. 3. Harris catheter within the urinary bladder. Chest X-Ray 07/15/19 08:08 IMPRESSION: CHF. No significant change. Chest Ultrasound 07/16/19 00:00 IMPRESSION: Small right pleural effusion. 07/18/19 05:53 07/20/19 06:10 MCV 92 fl (80-97) 07/18/19 05:53 MCH 29.7 pg (27.0-33.4) 07/18/19 05:53 MCHC 32.3 g/dL (32.0-36.0) 07/18/19 05:53 RDW 17.9 % (11.5-14.0) H 07/18/19 05:53 Seg Neutrophils % 79.4 % (42-78) H 07/18/19 05:53 Carbonic Acid 2.22 mmol/L (1.05-1.35) H 07/20/19 11:38 HCO3/H2CO3 Ratio 12:1 07/20/19 11:38 ABG pH 7.18 (7.35-7.45) L* 07/20/19 11:38 ABG pCO2 73.9 mmHg (35-45) H* 07/20/19 11:38 ABG pO2 123.5 mmHg (80-100) H 07/20/19 11:38 ABG HCO3 26.8 mmol/L (20-24) H 07/20/19 11:38 ABG O2 Saturation 97.4 % (94-98) 07/20/19 11:38 ABG Base Excess -3.0 mmol/L 07/20/19 11:38 FiO2 4L 07/20/19 11:38 Chloride 105 mmol/L (98-107) 07/20/19 06:10 Carbon Dioxide 24 mmol/L (22-30) 07/20/19 06:10 Anion Gap 11 (5-19) 07/20/19 06:10 Est GFR ( Amer) 13 (>60) L 07/20/19 06:10 Est GFR (Non-Af Amer) Cancelled 07/16/19 05:53 Glucose 97 mg/dL (75-110) 07/20/19 06:10 Calcium 10.2 mg/dL (8.4-10.2) 07/20/19 06:10 Phosphorus 4.4 mg/dL (2.5-4.5) 07/10/19 21:02 Magnesium 1.8 mg/dL (1.6-2.3) 07/17/19 05:19 Total Bilirubin 0.9 mg/dL (0.2-1.3) 07/18/19 05:53 AST 32 U/L (17-59) 07/18/19 05:53 Alkaline Phosphatase 54 U/L (38-126) 07/18/19 05:53 Ammonia 16.4 umol/L (9-33) 07/12/19 14:20 Total Protein 6.8 g/dL (6.3-8.2) 07/18/19 05:53 Albumin 3.6 g/dL (3.5-5.0) 07/18/19 05:53 TSH 8.59 uIU/mL (0.47-4.68) H 07/09/19 15:38 Free T4 0.93 ng/dL (0.78-2.19) 07/09/19 15:38 Thyroxine (T4) 5.59 ug/dL (5.53-11.0) 07/09/19 15:38 Free T3 pg/mL 2.27 pg/mL (2.77-5.27) L 07/09/19 15:38 Reverse T3 36.7 ng/dL (9.2-24.1) H 07/11/19 05:00 Urine Color YELLOW 07/12/19 14:55 Urine Appearance CLEAR 07/12/19 14:55 Urine pH 5.0 (5.0-9.0) 07/12/19 14:55 Ur Specific [place] 1.009 07/12/19 14:55 Urine Protein 30 mg/dL (NEGATIVE) H 07/12/19 14:55 Urine Glucose (UA) NEGATIVE mg/dL (NEGATIVE) 07/12/19 14:55 Urine Ketones NEGATIVE mg/dL (NEGATIVE) 07/12/19 14:55 Urine Blood SMALL (NEGATIVE) H 07/12/19 14:55 Urine Nitrite NEGATIVE (NEGATIVE) 07/12/19 14:55 Ur Leukocyte Esterase NEGATIVE (NEGATIVE) 07/12/19 14:55 Urine WBC (Auto) 1 /HPF 07/12/19 14:55 Urine RBC (Auto) 17 /HPF 07/12/19 14:55 Stool Occult Blood NEGATIVE (NEGATIVE) 07/17/19 17:08 07/09/19 07/09/19 07/17/19 15:38 15:38 05:19 Creatine Kinase 33 L CK-MB (CK-2) 1.89 Troponin I 0.175 NT-Pro-B Natriuret Pep 07378 H 53307 H Current Medication List Generic Name Dose Route Start Last Admin Trade Name Pb PRN Reason Stop Dose Admin Apixaban 2.5 mg 07/09/19 22:00 07/20/19 21:38 Eliquis 2.5 Mg Tablet PO 08/08/19 21:59 2.5 mg Q12 JENNIFER Administration Ascorbic Acid 500 mg 07/10/19 10:00 07/20/19 09:08 Vitamin C 500 Mg Tablet PO 08/09/19 09:59 500 mg DAILY JENNIFER Administration Atorvastatin Calcium 40 mg 07/09/19 18:00 07/20/19 17:05 Lipitor 40 Mg Tablet PO 08/08/19 17:59 40 mg QPM JENNIFER Administration Bisacodyl 10 mg 07/09/19 16:36 07/15/19 05:36 Dulcolax 10 Mg Supp.Rect MO 08/08/19 16:35 10 mg DAILYP PRN Administration UNRESOLVED CONSTIPATION Carvedilol 6.25 mg 07/12/19 15:26 07/13/19 10:27 Coreg 6.25 Mg Tablet PO 08/08/19 21:59 Not Given Q12 JENNIFER Dextrose 12.5 gm 07/09/19 15:30 07/18/19 08:00 Dextrose Inj 50% Syringe (25 Gm/50 Ml) IV 08/08/19 15:29 12.5 gm PRN PRN Administration FOR BG 50-69 IN ALERT PATIENT Protocol Dextrose 25 gm 07/09/19 15:30 07/16/19 07:52 Dextrose Inj 50% Syringe (25 Gm/50 Ml) IV 08/08/19 15:29 25 gm PRN PRN Administration Protocol Ergocalciferol 50,000 unit 07/09/19 17:00 Drisdol 50,000 Unit (1.25mg) Capsule PO 08/08/19 16:59 [id number] JENNIFER Ferrous Sulfate 325 mg 07/09/19 22:00 07/20/19 21:38 Feosol 325 Mg Tablet PO 08/08/19 21:59 325 mg Q12 JENNIFER Administration Furosemide 20 mg 07/13/19 18:15 07/14/19 05:15 Lasix Inj/Pf 20 Mg/2 Ml Sdv IV 08/12/19 18:14 20 mg Q12A JENNIFER Administration Glipizide 2.5 mg 07/10/19 10:00 07/20/19 09:09 Glucotrol 5 Mg Tablet PO 08/09/19 09:59 2.5 mg DAILY JENNIFER Administration Glucagon 1 mg 07/09/19 15:30 Glucagen Inj 1 Mg Vial IM 08/08/19 15:29 PRN PRN EVALUATE FOR BG < 70 Protocol Glucose 15 gm 07/09/19 15:30 07/15/19 07:19 Glutose 40% Gel 15 Gm Tube PO 08/08/19 15:29 15 gm PRN PRN Administration FOR BG 50-69 IN ALERT PATIENT Protocol Glucose 30 gm 07/09/19 15:30 Glutose 40% Gel 15 Gm Tube PO 08/08/19 15:29 PRN PRN FOR BG < 50 IN ALERT PATIENT Protocol Hydralazine HCl 25 mg 07/09/19 22:00 07/12/19 13:23 Apresoline 25 Mg Tablet PO 08/08/19 21:59 Not Given Q8 JENNIFER Piperacillin Sod/Tazobactam 50 mls @ 100 mls/hr 07/16/19 13:00 07/21/19 05:34 Sod 2.25 gm/ Sodium Chloride IV 07/23/19 12:59 100 mls/hr Q8 JENNIFER 100 mls/hr Administration Insulin Human Lispro 0 - 12 unit 07/09/19 16:00 07/20/19 21:34 Humalog Insulin 100 Unit/1 Ml 3 Ml Vial SUBCUT 08/08/19 15:59 Not Given ACHS JENNIFER Protocol Levothyroxine Sodium 0.025 mg 07/15/19 06:00 07/21/19 05:35 Synthroid 0.025 Mg Tablet PO 08/14/19 05:59 0.025 mg Q6AM JENNIFER Administration Pantoprazole Sodium 40 mg 07/09/19 16:00 07/20/19 09:[address] Tablet PO 08/08/19 15:59 40 mg QAM JENNIFER Administration Patient Own Medication 1 each 07/10/19 10:00 Umeclidinium Brm/Vilanterol Tr [Anoro Ellipta 62.5-25 Mcg Inh] IH 08/09/19 09:59 .DAILY JENNIFER Patiromer 16.8 gm 07/19/19 08:00 07/20/19 09:09 Veltassa 8.4 Gm Susp Packet PO 08/18/19 07:59 16.8 gm QAM JENNIFER Administration Discontinued Medications Generic Name Dose Route Start Last Admin Trade Name Pb PRN Reason Stop Dose Admin Carvedilol 6.25 mg 07/09/19 22:00 07/12/19 09:52 Coreg 6.25 Mg Tablet PO 08/08/19 21:59 6.25 mg Q12 JENNIFER Administration Furosemide 40 mg 07/09/19 16:00 07/12/19 17:28 Lasix Inj/Pf 40 Mg/4 Ml Sdv IV 08/08/19 15:59 40 mg Q12A JENNIFER Administration Furosemide 20 mg 07/13/19 06:00 07/13/19 17:55 Lasix Inj/Pf 20 Mg/2 Ml Sdv IV 08/12/19 05:59 Not Given Q12A JENNIFER Dobutamine HCl/Dextrose 500 mg in 250 mls @ 0 mls/hr 07/13/19 21:36 07/20/19 20:48 Dobutrex Rtu 500 Mg-D5w 250 Ml Premixed Bag IV 08/12/19 21:35 0 ml/hr CONTINUOUS PRN 0 mls/hr THIS MED IS NOT "PRN" Titration Protocol Titrate Sodium Chloride 1,000 mls @ 100 mls/hr 07/19/19 11:51 07/20/19 00:02 Nacl 0.9% 1000 Ml Iv Soln IV Infused CONTINUOUS PRN Infusion THIS MED IS NOT "PRN" Levothyroxine Sodium 0.025 mg 07/14/19 20:16 07/14/19 20:55 Synthroid 0.025 Mg Tablet PO 07/14/19 20:17 0.025 mg NOW ONE Administration Patiromer 16.8 gm 07/10/19 06:00 07/18/19 05:57 Veltassa 8.4 Gm Susp Packet PO 08/09/19 05:59 Not Given Q6AM JENNIFER Patiromer 16.8 gm 07/10/19 09:30 07/10/19 09:36 Veltassa 8.4 Gm Susp Packet PO 07/10/19 09:31 16.8 gm NOW ONE Administration Potassium Chloride 20 meq 07/13/19 11:00 07/13/19 21:39 Klor-Con 10 Meq Tablet Er PO 07/13/19 22:01 20 meq Q12 JENNIFER Administration Assessment & Plan - Diagnosis (1) ICD (implantable cardioverter-defibrillator) in place Is this a current diagnosis for this admission?: Yes Plan: We will continue with clinical follow-up. (2) Pneumonia Plan: The patient feels better. Further management per primary team. He continues to be on antibiotics. (3) Acute kidney injury superimposed on chronic kidney disease Plan: His creatinine continues to be stable. He is followed by nephrology. (4) CHF (congestive heart failure) Qualifiers: Heart failure type: combined systolic and diastolic Heart failure chronicity: acute on chronic Qualified Code(s): I50.43 - Acute on chronic combined systolic (congestive) and diastolic (congestive) heart failure Plan: The patient continues to euvolemic at this point and without heart failure symptoms. Recommendations: -Agree with holding carvedilol given his episodes of hypotension. -Continue with current medical management. -Continue to hold Lasix for now. -Consider adding LISA inhibitor or ARB if okay with nephrology and when blood pressure improved. -We will continue to follow-up with you. (5) Chronic a-fib Is this a current diagnosis for this admission?: Yes Plan: He continues to be anticoagulated without bleeding issues. His telemetry showed episodes of RVR likely secondary to the lack of beta-nixon. Recommendations: -May start low-dose carvedilol at 3.125 mg twice daily once the patient is off of dobutamine with close attention to his blood pressure. -Continue with anticoagulation.
[2019-07-21] MEDS: INSULIN LISPRO 100 UNIT/ML 3 ML VIAL SUBCUT SCH ×4 (09:07→21:54)
[2019-07-21] MEDS: ASCORBIC ACID 500 MG TABLET PO SCH (09:19)
[2019-07-21] MEDS: APIXABAN 2.5 MG TABLET PO SCH ×2 (09:19→21:55)
[2019-07-21] MEDS: GLIPIZIDE 5 MG TABLET PO SCH (09:19)
[2019-07-21] MEDS: PANTOPRAZOLE SODIUM 40 MG TABLET.DR PO SCH (09:19)
[2019-07-21] MEDS: FERROUS SULFATE 325 MG TABLET PO SCH ×2 (09:19→21:55)
[2019-07-21] MEDS: PATIROMER 8.4 GM SUSP PACKET PO SCH ×2 (10:28→17:21)
[2019-07-21 14:15] LABS: ANION GAP 10 (5-19); BLOOD UREA NITROGEN 86 mg/dL (7-20); CALCIUM 10.7 mg/dL (8.4-10.2); CARBON DIOXIDE 26 mmol/L (22-30); CHLORIDE 103 mmol/L (98-107); GLUCOSE 84 mg/dL (75-110); POTASSIUM 5.3 mmol/L (3.6-5.0)
[2019-07-21] MEDS: MIDODRINE HCL 5 MG TABLET PO SCH ×2 (17:13→17:20)
--- NOTE | 2019-07-21 17:37 | PDOC PROGRESS REPORT ---
Subjective Progress Note for:: 07/21/19 Subjective:: Patient denied any chest pain. Remain on supplemental oxygen via nasal cannula and BiPAP support while sleeping. No reported fever or chills. No nausea, vomiting, or abdominal pain. His blood pressure remain a concern and currently on Midodrine therapy. Reason For Visit: ACUTE ON CHRONIC CHF,CHRONIC A-FIB,DM TYPE 2,HTN,C Physical Exam Vital Signs: Temp Pulse Resp BP Pulse Ox 97.5 F 44 L 20 108/72 100 07/21/19 14:55 07/21/19 14:55 07/21/19 14:55 07/21/19 14:55 07/21/19 14:55 Intake & Output 07/20/19 07/21/19 07/22/19 06:59 06:59 06:59 Intake Total 2307 1149 150 Output Total 1015 475 100 Balance 1292 674 50 Weight 76.2 kg 79.4 kg 79.5 kg Physical Exam: General appearance: PRESENT: mild distress on supplemental oxygen via nasal cannula support Head exam: PRESENT: atraumatic, normocephalic Eye exam: PRESENT: conjunctiva pink. ABSENT: pallor, scleral icterus Respiratory exam: PRESENT: prolonged expiratory phase - at lung bases Cardiovascular exam: PRESENT: Irregular rhythm, +S1, +S2, systolic murmur Murmur grade: 3 GI/Abdominal exam: PRESENT: normal bowel sounds, soft. ABSENT: distended, gua rding, mass, organomegaly, rebound, tenderness : Indwelling Harris catheter in situ. Extremities exam: PRESENT: significantly resolved pedal edema Neurological exam: PRESENT: He is alert and appropriate in responses at the time of my bedside visit. Skin exam: PRESENT: dry, warm, other - improved blister lesion on left leg Murmur grade: 3 Results Laboratory Results: 07/18/19 05:53 07/21/19 13:30 07/21/19 13:30 Sodium 138.9 Potassium 5.3 H Chloride 103 Carbon Dioxide 26 Anion Gap 10 BUN 86 H Creatinine 5.22 H Est GFR ( Amer) 13 L Glucose 84 Calcium 10.7 H 07/09/19 07/09/19 07/17/19 15:38 15:38 05:19 Creatine Kinase 33 L CK-MB (CK-2) 1.89 Troponin I 0.175 NT-Pro-B Natriuret Pep 55451 H 47350 H Impressions: Renal Ultrasound 07/12/19 00:00 IMPRESSION: 1. Increased echogenicity of the renal parenchyma and thinning of the renal cortices - clinical correlation for chronic medical renal disease is r ecommended. 2. No hydronephrosis. 3. Harris catheter within the urinary bladder. Chest X-Ray 07/15/19 08:08 IMPRESSION: CHF. No significant change. Chest Ultrasound 07/16/19 00:00 IMPRESSION: Small right pleural effusion. Assessment & Plan - Diagnosis (1) Acute on chronic combined systolic (congestive) and diastolic (congestive) heart failure Is this a current diagnosis for this admission?: Yes (2) CKD (chronic kidney disease) stage 5, GFR less than 15 ml/min Is this a current diagnosis for this admission?: Yes (3) Chronic a-fib Is this a current diagnosis for this admission?: Yes (4) Diabetes mellitus type 2 with complications Is this a current diagnosis for this admission?: Yes (5) Hypertension Qualifiers: Hypertension type: essential hypertension Qualified Code(s): I10 - Essential (primary) hypertension Is this a current diagnosis for this admission?: Yes (6) CAD (coronary atherosclerotic disease) Qualifiers: Coronary Disease-Associated Artery/Lesion type: unspecified vessel or lesion type Associated angina: without angina Is this a current diagnosis for this admission?: Yes (7) HLD (hyperlipidemia) Qualifiers: Hyperlipidemia type: pure hypercholesterolemia Qualified Code(s): E78.00 - Pure hypercholesterolemia, unspecified Is this a current diagnosis for this admission?: Yes (8) Old ID (myocardial infarction) Is this a current diagnosis for this admission?: Yes (9) Chronic gout Qualifiers: Gout site: unspecified site Presence of tophus: without tophus Is this a current diagnosis for this admission?: Yes (10) Osteoarthritis involving multiple joints on both sides of body Is this a current diagnosis for this admission?: Yes (11) AMS (altered mental status) Is this a current diagnosis for this admission?: Yes (12) Acute respiratory acidosis Is this a current diagnosis for this admission?: Yes (13) Subclinical hypothyroidism Is this a current diagnosis for this admission?: Yes - Time Time Spent with patient: 25-34 minutes Level of Care: IMCU Medications reviewed and adjusted accordingly: Yes Anticipated discharge: Home with Homehealth Within: Other - Inpatient Certification Based on my medical assessment, after consideration of the patient's comorbidities, presenting symptoms, or acuity I expect that the services needed warrant INPATIENT care.: Yes I certify that my determination is in accordance with my understanding of Medicare's requirements for reasonable and necessary INPATIENT services [42 CFR 412.3e].: Yes Medical Necessity: Significant Comorbidiites Make Outpatient Treatment Too Risky, Need Close Monitoring Due to Risk of Patient Decompensation, Need For Continuous Telemetry Monitoring, Need for IV Antibiotics, Risk of Complication if Not Cared For in Hospital, Risk of Diagnosis Which Will Require Inpatient Eval/Care/Monitoring Post Hospital Care: D/C Zinc Etcher Documentation - Plan Summary Plan Summary: Continue current medication management. Follow up on blood pressure response to Midodrine therapy and reinstate guidelines directed medication for his CHF. Ove rall prognosis remain guarded.
--- NOTE | 2019-07-21 21:06 | PDOC PROGRESS REPORT ---
Subjective Progress Note for:: 07/21/19 Subjective:: Patient was seen this afternoon laying in his bed. BP has been maintaining lower since stopping the dobutamine yesterday. urine output has also decreased. Patient denies chest pain or SOB. Patient is also back to being confused. Reason For Visit: ACUTE ON CHRONIC CHF,CHRONIC A-FIB,DM TYPE 2,HTN,C Physical Exam Vital Signs: Temp Pulse Resp BP Pulse Ox 97.7 F 80 20 93/55 L 94 07/21/19 06:56 07/21/19 07:00 07/21/19 06:56 07/21/19 06:56 07/21/19 07:57 Intake & Output 07/20/19 07/21/19 07/22/19 06:59 06:59 06:59 Intake Total 2307 1149 100 Output Total 1015 475 100 Balance 1292 674 0 Weight 76.2 kg 79.4 kg General appearance: PRESENT: no acute distress, well-developed, well-nourished, other - -on oxygen Mouth exam: PRESENT: moist, neck supple Neck exam: ABSENT: JVD, tracheal deviation Respiratory exam: PRESENT: crackles, decreased breath sounds. ABSENT: clear to auscultation amelia, rales, wheezes Cardiovascular exam: PRESENT: irregular rhythm, +S1, +S2 GI/Abdominal exam: PRESENT: distended, soft. ABSENT: guarding, tenderness Extremities exam: PRESENT: pedal edema - -trace+. ABSENT: tenderness, +2 edema Musculoskeletal exam: PRESENT: normal inspection. ABSENT: tenderness Neurological exam: PRESENT: altered, oriented to place. ABSENT: oriented to person, oriented to time, oriented to situation Skin exam: PRESENT: dry, intact, warm. ABSENT: cyanosis Results Laboratory Results: 07/18/19 05:53 07/21/19 13:30 07/21/19 13:30 Sodium 138.9 Potassium 5.3 H Chloride 103 Carbon Dioxide 26 Anion Gap 10 BUN 86 H Creatinine 5.22 H Est GFR ( Amer) 13 L Glucose 84 Calcium 10.7 H 07/09/19 07/09/19 07/17/19 15:38 15:38 05:19 Creatine Kinase 33 L CK-MB (CK-2) 1.89 Troponin I 0.175 NT-Pro-B Natriuret Pep 17871 H 63440 H Impressions: Renal Ultrasound 07/12/19 00:00 IMPRESSION: 1. Increased echogenicity of the renal parenchyma and thinning of the renal cortices - clinical correlation for chronic medical renal disease is recommended. 2. No hydronephrosis. 3. Harris catheter within the urinary bladder. Chest X-Ray 07/15/19 08:08 IMPRESSION: CHF. No significant change. Chest Ultrasound 07/16/19 00:00 IMPRESSION: Small right pleural effusion. Assessment & Plan - Diagnosis (1) Hypercapnia Plan: Patient continues to go up and down depending on how much he uses the AVAP. Prognosis looks poor (2) Pneumonia Plan: on pip/tazo that is renal dosed (3) Acute kidney injury superimposed on chronic kidney disease Plan: continue off furosemide for now. Creatinine is slightly up, most likely due to a low bp. Will look to trial midodrine since he is off the dobutamine. At this t brigitte I would hold off on adding an LISA-I or ARBs with the potassium being around 5.3. (4) Acute respiratory acidosis Is this a current diagnosis for this admission?: Yes (5) Acute systolic (congestive) heart failure Is this a current diagnosis for this admission?: Yes Plan: off diuretics, has a pleural effusion that is not big enough to tap. (6) AMS (altered mental status) Is this a current diagnosis for this admission?: Yes Plan: due to hypercapnia (7) CKD (chronic kidney disease) stage 4, GFR 15-29 ml/min Is this a current diagnosis for this admission?: Yes Plan: Baseline looks to be 4-4.3. According to Dr. Jean, who follows with him as o utpatient. He sometimes ranges up to 5 for his creatinine. (8) Diabetes mellitus type 2 with complications Is this a current diagnosis for this admission?: Yes (9) Dyspnea Qualifiers: Dyspnea type: shortness of breath Qualified Code(s): R06.02 - Shortness of breath; R06.00 - Dyspnea, unspecified; R06.01 - Orthopnea (10) Hypertension Qualifiers: Hypertension type: essential hypertension Qualified Code(s): I10 - Essential (primary) hypertension Is this a current diagnosis for this admission?: Yes Plan: more on the low end of normal when off dobutamine. Will look to trial midodrine (11) Pleural effusion Plan: Was found to not be large enough to tap. Currently being fluid restricted. (12) Hyperkalemia Plan: Patient needs to be placed on a low potassium diet. Likely up also from dehydration. (13) Hypercalcemia Plan: patient has chronic hypercalcemia but has refused work up or intervention.
[2019-07-21] MEDS: DEXTROSE 50%-WATER SYRINGE 12.5 GM/25 ML DOSE IV PRN (21:54)
[2019-07-21] MEDS: ATORVASTATIN CALCIUM 40 MG TABLET PO SCH (21:55)
[2019-07-22] MEDS: PIPERACILLIN SODIUM/TAZOBACTAM 2.25 GM in NORMAL SALINE 50 ML IV SCH ×3 (06:02→21:06)
[2019-07-22] MEDS: LEVOTHYROXINE SODIUM 0.025 MG TABLET PO SCH (06:02)
[2019-07-22] MEDS: INSULIN LISPRO 100 UNIT/ML 3 ML VIAL SUBCUT SCH ×4 (07:54→23:36)
[2019-07-22] MEDS: DEXTROSE 50%-WATER SYRINGE 12.5 GM/25 ML DOSE IV PRN (08:49)
[2019-07-22] MEDS: GLIPIZIDE 5 MG TABLET PO SCH (09:10)
[2019-07-22] MEDS: ASCORBIC ACID 500 MG TABLET PO SCH (09:14)
[2019-07-22] MEDS: APIXABAN 2.5 MG TABLET PO SCH ×2 (09:15→21:06)
[2019-07-22] MEDS: PANTOPRAZOLE SODIUM 40 MG TABLET.DR PO SCH (09:15)
[2019-07-22] MEDS: FERROUS SULFATE 325 MG TABLET PO SCH ×2 (09:15→21:16)
[2019-07-22] MEDS: MIDODRINE HCL 5 MG TABLET PO SCH ×3 (09:15→18:17)
--- NOTE | 2019-07-22 09:40 | PDOC PROGRESS REPORT ---
Subjective Progress Note for:: 07/22/19 Subjective:: SORIN PINEDA is a 79 year old male with history of CHF, A-fib, anemia, CKD4, DM2 and HTN who was admitted with fluid overload and heart failure symptoms. For full details please see hospitalist admission note and Dr. Sarmiento's notes. In summary, he was begun on low dose dobutamine with good results. This morning he continues to be at baseline and denies new cardiac complaints. His telemetry demonstrates atrial fibrillation with episodes of rapid ventricular response. He actually feels slightly better today. 07/22/2019: The patient had an uneventful night and actually looks more awake and alert this morning. His creatinine worsened slightly since coming off of dobutamine and his blood pressure, although on the low side at times, is holding adequately a fter the addition of midodrine by nephrology. This morning he has no cardiac complaints. His telemetry showing atrial fibrillation with heart rates between 90 and 95 bpm and some PVCs. Physical exam on 07/22/2019: GENERAL: Pleasant and conversational. Morbidly obese. Oriented to place and person with normal mood. Not in acute distress. Well groomed and well developed. HEENT: Normocephalic, atraumatic. Pupils equal. Sclerae anicteric. Oropharynx moist. NECK: No JVD. No carotid bruits. LUNGS: Clear to auscultation bilaterally. Normal respiratory effort without the use of accessory muscles or intercostal retractions. CARDIOVASCULAR: Irregularly irregular rate and rhythm, normal S1 and S2 without murmurs, rubs, or gallops. PMI not displaced. EXTREMITIES: The right leg is wrapped due to skin breakdown, there is no edema on the left leg. SKIN: No lesions or rashes. MUSCULOSKELETAL: No chest tenderness to palpation. NEUROLOGIC: Nonfocal. No gross sensory or motor deficits bilateral upper or lower extremities. Reason For Visit: ACUTE ON CHRONIC CHF,CHRONIC A-FIB,DM TYPE 2,HTN,C Physical Exam Vital Signs: Temp Pulse Resp BP Pulse Ox 97.7 F 75 16 119/70 97 07/22/19 03:38 07/22/19 03:38 07/22/19 03:38 07/22/19 03:38 07/22/19 03:38 Intake & Output 07/20/19 07/21/19 07/22/19 06:59 06:59 06:59 Intake Total 8877 5699 440 Output Total 6861 475 175 Balance 1292 674 265 Weight 76.2 kg 79.4 kg 79.5 kg Results Laboratory Results: 07/18/19 05:53 07/21/19 13:30 07/21/19 13:30 Sodium 138.9 Potassium 5.3 H Chloride 103 Carbon Dioxide 26 Anion Gap 10 BUN 86 H Creatinine 5.22 H Est GFR ( Amer) 13 L Glucose 84 Calcium 10.7 H 07/09/19 07/09/19 07/17/19 15:38 15:38 05:19 Creatine Kinase 33 L CK-MB (CK-2) 1.89 Troponin I 0.175 NT-Pro-B Natriuret Pep 06055 H 31413 H Impressions: Renal Ultrasound 07/12/19 00:00 IMPRESSION: 1. Increased echogenicity of the renal parenchyma and thinning of the renal cortices - clinical correlation for chronic medical renal disease is recommended. 2. No hydronephrosis. 3. Harris catheter within the urinary bladder. Chest X-Ray 07/15/19 08:08 IMPRESSION: CHF. No significant change. Chest Ultrasound 07/16/19 00:00 IMPRESSION: Small right pleural effusion. 07/18/19 05:53 07/21/19 13:30 MCV 92 fl (80-97) 07/18/19 05:53 MCH 29.7 pg (27.0-33.4) 07/18/19 05:53 MCHC 32.3 g/dL (32.0-36.0) 07/18/19 05:53 RDW 17.9 % (11.5-14.0) H 07/18/19 05:53 Seg Neutrophils % 79.4 % (42-78) H 07/18/19 05:53 Carbonic Acid 2.22 mmol/L (1.05-1.35) H 07/20/19 11:38 HCO3/H2CO3 Ratio 12:1 07/20/19 11:38 ABG pH 7.18 (7.35-7.45) L* 07/20/19 11:38 ABG pCO2 73.9 mmHg (35-45) H* 07/20/19 11:38 ABG pO2 123.5 mmHg (80-100) H 07/20/19 11:38 ABG HCO3 26.8 mmol/L (20-24) H 07/20/19 11:38 ABG O2 Saturation 97.4 % (94-98) 07/20/19 11:38 ABG Base Excess -3.0 mmol/L 07/20/19 11:38 FiO2 4L 07/20/19 11:38 Chloride 103 mmol/L (98-107) 07/21/19 13:30 Carbon Dioxide 26 mmol/L (22-30) 07/21/19 13:30 Anion Gap 10 (5-19) 07/21/19 13:30 Est GFR ( Amer) 13 (>60) L 07/21/19 13:30 Est GFR (Non-Af Amer) Cancelled 07/16/19 05:53 Glucose 84 mg/dL (75-110) 07/21/19 13:30 Calcium 10.7 mg/dL (8.4-10.2) H 07/21/19 13:30 Phosphorus 4.4 mg/dL (2.5-4.5) 07/10/19 21:02 Magnesium 1.8 mg/dL (1.6-2.3) 07/17/19 05:19 Total Bilirubin 0.9 mg/dL (0.2-1.3) 07/18/19 05:53 AST 32 U/L (17-59) 07/18/19 05:53 Alkaline Phosphatase 54 U/L (38-126) 07/18/19 05:53 Ammonia 16.4 umol/L (9-33) 07/12/19 14:20 Total Protein 6.8 g/dL (6.3-8.2) 07/18/19 05:53 Albumin 3.6 g/dL (3.5-5.0) 07/18/19 05:53 TSH 8.59 uIU/mL (0.47-4.68) H 07/09/19 15:38 Free T4 0.93 ng/dL (0.78-2.19) 07/09/19 15:38 Thyroxine (T4) 5.59 ug/dL (5.53-11.0) 07/09/19 15:38 Free T3 pg/mL 2.27 pg/mL (2.77-5.27) L 07/09/19 15:38 Reverse T3 36.7 ng/dL (9.2-24.1) H 07/11/19 05:00 Urine Color YELLOW 07/12/19 14:55 Urine Appearance CLEAR 07/12/19 14:55 Urine pH 5.0 (5.0-9.0) 07/12/19 14:55 Ur Specific [place] 1.009 07/12/19 14:55 Urine Protein 30 mg/dL (NEGATIVE) H 07/12/19 14:55 Urine Glucose (UA) NEGATIVE mg/dL (NEGATIVE) 07/12/19 14:55 Urine Ketones NEGATIVE mg/dL (NEGATIVE) 07/12/19 14:55 Urine Blood SMALL (NEGATIVE) H 07/12/19 14:55 Urine Nitrite NEGATIVE (NEGATIVE) 07/12/19 14:55 Ur Leukocyte Esterase NEGATIVE (NEGATIVE) 07/12/19 14:55 Urine WBC (Auto) 1 /HPF 07/12/19 14:55 Urine RBC (Auto) 17 /HPF 07/12/19 14:55 Stool Occult Blood NEGATIVE (NEGATIVE) 07/17/19 17:08 07/09/19 07/09/19 07/17/19 15:38 15:38 05:19 Creatine Kinase 33 L CK-MB (CK-2) 1.89 Troponin I 0.175 NT-Pro-B Natriuret Pep 65436 H 45585 H Current Medication List Generic Name Dose Route Start Last Admin Trade Name Freq PRN Reason Stop Dose Admin Apixaban 2.5 mg 07/09/19 22:00 07/21/19 21:55 Eliquis 2.5 Mg Tablet PO 08/08/19 21:59 2.5 mg Q12 JENNIFER Administration Ascorbic Acid 500 mg 07/10/19 10:00 07/21/19 09:19 Vitamin C 500 Mg Tablet PO 08/09/19 09:59 500 mg DAILY JENNIFER Administration Atorvastatin Calcium 40 mg 07/21/19 22:00 07/21/19 21:55 Lipitor 40 Mg Tablet PO 08/20/19 21:59 40 mg QHS JENNIFER Administration Bisacodyl 10 mg 07/09/19 16:36 07/15/19 05:36 Dulcolax 10 Mg Supp.Rect AR 08/08/19 16:35 10 mg DAILYP PRN Administration UNRESOLVED CONSTIPATION Carvedilol 6.25 mg 07/12/19 15:26 07/13/19 10:27 Coreg 6.25 Mg Tablet PO 08/08/19 21:59 Not Given Q12 JENNIFER Dextrose 12.5 gm 07/09/19 15:30 07/21/19 21:54 Dextrose Inj 50% Syringe (25 Gm/50 Ml) IV 08/08/19 15:29 12.5 gm PRN PRN Administration FOR BG 50-69 IN ALERT PATIENT Protocol Dextrose 25 gm 07/09/19 15:30 07/16/19 07:52 Dextrose Inj 50% Syringe (25 Gm/50 Ml) IV 08/08/19 15:29 25 gm PRN PRN Administration Protocol Ergocalciferol 50,000 unit 07/09/19 17:00 Drisdol 50,000 Unit (1.25mg) Capsule PO 08/08/19 16:59 [id number] JENNIFER Ferrous Sulfate 325 mg 07/09/19 22:00 07/21/19 21:55 Feosol 325 Mg Tablet PO 08/08/19 21:59 325 mg Q12 JENNIFER Administration Furosemide 20 mg 07/13/19 18:15 07/14/19 05:15 Lasix Inj/Pf 20 Mg/2 Ml Sdv IV 08/12/19 18:14 20 mg Q12A JENNIFER Administration Glipizide 2.5 mg 07/10/19 10:00 07/21/19 09:19 Glucotrol 5 Mg Tablet PO 08/09/19 09:59 2.5 mg DAILY JENNIFER Administration Glucagon 1 mg 07/09/19 15:30 Glucagen Inj 1 Mg Vial IM 08/08/19 15:29 PRN PRN EVALUATE FOR BG < 70 Protocol Glucose 15 gm 07/09/19 15:30 07/15/19 07:19 Glutose 40% Gel 15 Gm Tube PO 08/08/19 15:29 15 gm PRN PRN Administration FOR BG 50-69 IN ALERT PATIENT Protocol Glucose 30 gm 07/09/19 15:30 Glutose 40% Gel 15 Gm Tube PO 08/08/19 15:29 PRN PRN FOR BG < 50 IN ALERT PATIENT Protocol Hydralazine HCl 25 mg 07/09/19 22:00 07/12/19 13:23 Apresoline 25 Mg Tablet PO 08/08/19 21:59 Not Given Q8 JENNIFER Piperacillin Sod/Tazobactam 50 mls @ 100 mls/hr 07/16/19 13:00 07/22/19 06:02 Sod 2.25 gm/ Sodium Chloride IV 07/23/19 12:59 100 mls/hr Q8 JENNIFER 100 mls/hr Administration Insulin Human Lispro 0 - 12 unit 07/09/19 16:00 07/21/19 21:54 Humalog Insulin 100 Unit/1 Ml 3 Ml Vial SUBCUT 08/08/19 15:59 Not Given ACHS JENNIFER Protocol Levothyroxine Sodium 0.025 mg 07/15/19 06:00 07/22/19 06:02 Synthroid 0.025 Mg Tablet PO 08/14/19 05:59 0.025 mg Q6AM JENNIFER Administration Midodrine 2.5 mg 07/21/19 16:00 07/21/19 17:20 Proamatine 5 Mg Tablet PO 08/20/19 15:59 2.5 mg TID JENNIFER Administration Pantoprazole Sodium 40 mg 07/09/19 16:00 07/21/19 09:[address] Tablet PO 08/08/19 15:59 40 mg QAM JENNIFER Administration Patient Own Medication 1 each 07/10/19 10:00 Umeclidinium Brm/Vilanterol Tr [Anoro Ellipta 62.5-25 Mcg Inh] IH 08/09/19 09:59 .DAILY JENNIFER Patiromer 16.8 gm 07/21/19 18:00 07/21/19 17:21 Veltassa 8.4 Gm Susp Packet PO 08/20/19 17:59 16.8 gm QPM JENNIFER Administration Discontinued Medications Generic Name Dose Route Start Last Admin Trade Name Luisq PRN Reason Stop Dose Admin Atorvastatin Calcium 40 mg 07/09/19 18:00 07/20/19 17:05 Lipitor 40 Mg Tablet PO 08/08/19 17:59 40 mg QPM JENNIFER Administration Carvedilol 6.25 mg 07/09/19 22:00 07/12/19 09:52 Coreg 6.25 Mg Tablet PO 08/08/19 21:59 6.25 mg Q12 JENNIFER Administration Furosemide 40 mg 07/09/19 16:00 07/12/19 17:28 Lasix Inj/Pf 40 Mg/4 Ml Sdv IV 08/08/19 15:59 40 mg Q12A JENNIFER Administration Furosemide 20 mg 07/13/19 06:00 07/13/19 17:55 Lasix Inj/Pf 20 Mg/2 Ml Sdv IV 08/12/19 05:59 Not Given Q12A JENNIFER Dobutamine HCl/Dextrose 500 mg in 250 mls @ 0 mls/hr 07/13/19 21:36 07/20/19 20:48 Dobutrex Rtu 500 Mg-D5w 250 Ml Premixed Bag IV 08/12/19 21:35 0 ml/hr CONTINUOUS PRN 0 mls/hr THIS MED IS NOT "PRN" Titration Protocol Titrate Sodium Chloride 1,000 mls @ 100 mls/hr 07/19/19 11:51 07/20/19 00:02 Nacl 0.9% 1000 Ml Iv Soln IV Infused CONTINUOUS PRN Infusion THIS MED IS NOT "PRN" Levothyroxine Sodium 0.025 mg 07/14/19 20:16 07/14/19 20:55 Synthroid 0.025 Mg Tablet PO 07/14/19 20:17 0.025 mg NOW ONE Administration Patiromer 16.8 gm 07/10/19 06:00 07/18/19 05:57 Veltassa 8.4 Gm Susp Packet PO 08/09/19 05:59 Not Given Q6AM JENNIFER Patiromer 16.8 gm 07/10/19 09:30 07/10/19 09:36 Veltassa 8.4 Gm Susp Packet PO 07/10/19 09:31 16.8 gm NOW ONE Administration Patiromer 16.8 gm 07/19/19 08:00 07/21/19 10:28 Veltassa 8.4 Gm Susp Packet PO 08/18/19 07:59 Not Given QAM JENNIFER Potassium Chloride 20 meq 07/13/19 11:00 07/13/19 21:39 Klor-Con 10 Meq Tablet Er PO 07/13/19 22:01 20 meq Q12 JENNIFER Administration Assessment & Plan - Diagnosis (1) ICD (implantable cardioverter-defibrillator) in place Plan: We will continue with clinical follow-up. (2) Pneumonia Plan: The patient feels better. Further management per primary team. He continues to be on antibiotics. (3) Acute kidney injury superimposed on chronic kidney disease Plan: Further management per nephrology team. (4) CHF (congestive heart failure) Qualifiers: Heart failure type: combined systolic and diastolic Heart failure chronicity: acute on chronic Qualified Code(s): I50.43 - Acute on chronic combined systolic (congestive) and diastolic (congestive) heart failure Is this a current diagnosis for this admission?: Yes Plan: The patient continues to euvolemic at this point and without heart failure symptoms. Unfortunately he had to be started on low-dose Midodrin secondary to episodes of hypotension. This issue is limiting our ability to start the patient on guideline directed medical therapy for heart failure. He is currently followed closely by nephrology. Recommendations: -Start carvedilol and LISA inhibitor when blood pressure allows. -Continue to hold Lasix for now. -Cardiology does not have further recommendations therefore we will sign off the case for now. -Reconsult if deemed necessary. (5) Chronic a-fib Is this a current diagnosis for this admission?: Yes Plan: He continues to be anticoagulated without bleeding issues. His telemetry showed episodes of RVR likely secondary to the lack of beta-nixon. Recommendations: -May start low-dose carvedilol at 3.125 mg twice daily once the patient is off of dobutamine with close attention to his blood pressure. -Continue with anticoagulation.
--- NOTE | 2019-07-22 11:35 | RADIOLOGY REPORT (SQ) ---
EXAM DESCRIPTION: CHEST SINGLE VIEW IMAGES COMPLETED DATE/TIME: 07/22/2019 10:57 am REASON FOR STUDY: CHF/pleural effusion COMPARISON: 07/15/2019 NUMBER OF VIEWS: One view. TECHNIQUE: Single frontal radiographic image of the chest acquired. LIMITATIONS: Body habitus. FINDINGS: LUNGS AND PLEURA: Small right pleural effusion and associated airspace disease not signifi cantly changed. MEDIASTINUM AND HEART: Stable heart size and mediastinal structures. SUPPORT DEVICES: Appropriate location without change. BONY STRUCTURES: No acute findings. HARDWARE: None. OTHER: No other significant finding. IMPRESSION: Right pleural effusion. No significant change. Reading location - IP/workstation name: [email or web address]
[2019-07-22 11:38] LABS: HEMATOCRIT 36.7 % (37.9-51.0); HEMOGLOBIN 11.6 g/dL (13.5-17.0); MEAN CORPUSCULAR HEMOGLOBIN 29.5 pg (27.0-33.4); MEAN CORPUSCULAR HGB CONC 31.6 g/dL (32.0-36.0); MEAN CORPUSCULAR VOLUME 94 fl (80-97); PLATELET COUNT 111 10^3/uL (150-450); RED BLOOD COUNT 3.92 10^6/uL (4.35-5.55); RED CELL DISTRIBUTION WIDTH 17.6 % (11.5-14.0); WHITE BLOOD COUNT 5.7 10^3/uL (4.0-10.5)
[2019-07-22 11:57] LABS: ALBUMIN 3.3 g/dL (3.5-5.0); ALKALINE PHOSPHATASE 55 U/L (38-126); ANION GAP 9 (5-19); ASPARTATE AMINO TRANSFERASE 26 U/L (17-59); BILIRUBIN,DIRECT 0.2 mg/dL (0.0-0.4); BILIRUBIN,TOTAL 0.6 mg/dL (0.2-1.3); BLOOD UREA NITROGEN 88 mg/dL (7-20); CALCIUM 10.4 mg/dL (8.4-10.2); CARBON DIOXIDE 24 mmol/L (22-30); CHLORIDE 105 mmol/L (98-107); GLUCOSE 97 mg/dL (75-110); TOTAL PROTEIN 6.2 g/dL (6.3-8.2)
[2019-07-22 12:03] LABS: ABSOLUTE LYMPHOCYTES# (MANUAL) 0.3 10^3/uL (0.5-4.7); ABSOLUTE MONOCYTES # (MANUAL) 0.3 10^3/uL (0.1-1.4); BASOPHILS % (MANUAL) 0 % (0-2); EOSINOPHILS % (MANUAL) 4 % (0-6); LYMPHOCYTES % (MANUAL) 6 % (13-45); MONOCYTES % (MANUAL) 5 % (3-13); SEGMENTED NEUTROPHILS % (MAN) 85 % (42-78); TOTAL CELLS COUNTED 100
[2019-07-22 12:05] LABS: ANISOCYTOSIS 1+; PLATELET COMMENT DECREASED
[2019-07-22 12:06] LABS: BURR CELLS SLIGHT; OVALOCYTES 2+
[2019-07-22 12:07] LABS: HYPOCHROMASIA SLIGHT
[2019-07-22] MEDS: PATIROMER 8.4 GM SUSP PACKET PO SCH (18:19)
--- NOTE | 2019-07-22 18:36 | PDOC PROGRESS REPORT ---
Subjective Progress Note for:: 07/22/19 Subjective:: Patient denied any chest pain. Remain on supplemental oxygen via nasal cannula and BiPAP support while sleeping. No reported fever or chills. No nausea, vomiting, or abdominal pain. Reason For Visit: ACUTE ON CHRONIC CHF,CHRONIC A-FIB,DM TYPE 2,HTN,C Physical Exam Vital Signs: Temp Pulse Resp BP Pulse Ox 98.0 F 83 21 H 138/89 H 95 07/22/19 15:02 07/22/19 15:02 07/22/19 15:02 07/22/19 15:02 07/22/19 16:30 Intake & Output 07/21/19 07/22/19 07/23/19 06:59 06:59 06:59 Intake Total 1149 490 790 Output Total 475 350 150 Balance 674 140 640 Weight 79.4 kg 79.3 kg Physical Exam: General appearance: PRESENT: mild distress on supplemental oxygen via nasal cannula support Head exam: PRESENT: atraumatic, normocephalic Eye exam: PRESENT: conjunctiva pink. ABSENT: pallor, scleral icterus Respiratory exam: PRESENT: prolonged expiratory phase - at lung bases Cardiovascular exam: PRESENT: Irregular rhythm, +S1, +S2, systolic murmur Murmur grade: 3 GI/Abdominal exam: PRESENT: normal bowel sounds, soft. ABSENT: distended, guarding, mass, organomegaly, rebound, tenderness : Indwelling Harris catheter in situ. Extremities exam: PRESENT: significantly resolved pedal edema Neurological exam: PRESENT: He is alert and appropriate in responses at the time of my bedside visit. Skin exam: PRESENT: dry, warm, other - improved blister lesion on left leg Murmur grade: 3 Results Laboratory Results: 07/22/19 11:00 07/22/19 11:00 07/22/19 07/22/19 07/22/19 11:00 11:00 11:00 WBC 5.7 RBC 3.92 L Hgb 11.6 L Hct 36.7 L MCV 94 MCH 29.5 MCHC 31.6 L RDW 17.6 H Plt Count 111 L Seg Neutrophils % Not Reportable Sodium 138.2 Potassium 5.0 Chloride 105 Carbon Dioxide 24 Anion Gap 9 BUN 88 H Creatinine 5.52 H Est GFR ( Amer) 12 L Glucose 97 Calcium 10.4 H Phosphorus 5.0 H Magnesium 2.2 Total Bilirubin 0.6 AST 26 Alkaline Phosphatase 55 Total Protein 6.2 L Albumin 3.3 L PTH Intact 284.1 H 07/09/19 07/09/19 07/17/19 15:38 15:38 05:19 Creatine Kinase 33 L CK-MB (CK-2) 1.89 Troponin I 0.175 NT-Pro-B Natriuret Pep 47607 H 74726 H Impressions: Renal Ultrasound 07/12/19 00:00 IMPRESSION: 1. Increased echogenicity of the renal parenchyma and thinning of the renal cortices - clinical correlation for chronic medical renal disease is recommended. 2. No hydronephrosis. 3. Harris catheter within the urinary bladder. Chest Ultrasound 07/16/19 00:00 IMPRESSION: Small right pleural effusion. Chest X-Ray 07/22/19 00:00 IMPRESSION: Right pleural effusion. No significant change. Assessment & Plan - Diagnosis (1) Acute on chronic combined systolic (congestive) and diastolic (congestive) heart failure Is this a current diagnosis for this admission?: Yes Plan: Restart Carvidelol therapy at 6.25 mg po q 12 hours. (2) CKD (chronic kidney disease) stage 5, GFR less than 15 ml/min Is this a current diagnosis for this admission?: Yes (3) Chronic a-fib Is this a current diagnosis for this admission?: Yes (4) Diabetes mellitus type 2 with complications Is this a current diagnosis for this admission?: Yes (5) Hypertension Qualifiers: Hypertension type: essential hypertension Qualified Code(s): I10 - Essential (primary) hypertension Is this a current diagnosis for this admission?: Yes (6) CAD (coronary atherosclerotic disease) Qualifiers: Coronary Disease-Associated Artery/Lesion type: unspecified vessel or lesion type Associated angina: without angina Is this a current diagnosis for this admission?: Yes (7) HLD (hyperlipidemia) Qualifiers: Hyperlipidemia type: pure hypercholesterolemia Qualified Code(s): E78.00 - Pure hypercholesterolemia, unspecified Is this a current diagnosis for this admission?: Yes (8) Old SD (myocardial infarction) Is this a current diagnosis for this admission?: Yes (9) Chronic gout Qualifiers: Gout site: unspecified site Presence of tophus: without tophus Is this a current diagnosis for this admission?: Yes (10) Osteoarthritis involving multiple joints on both sides of body Is this a current diagnosis for this admission?: Yes (11) AMS (altered mental status) Is this a current diagnosis for this admission?: Yes (12) Acute respiratory acidosis Is this a current diagnosis for this admission?: Yes (13) Subclinical hypothyroidism Is this a current diagnosis for this admission?: Yes - Time Time Spent with patient: 25-34 minutes Level of Care: IMCU Medications reviewed and adjusted accordingly: Yes Anticipated discharge: SNF - for short term rehabilitation. - Inpatient Certification Based on my medical assessment, after consideration of the patient's comorbidities, presenting symptoms, or acuity I expect that the services needed warrant INPATIENT care.: Yes I certify that my determination is in accordance with my understanding of Medicare's requirements for reasonable and necessary INPATIENT services [42 CFR 412.3e].: Yes Medical Necessity: Significant Comorbidiites Make Outpatient Treatment Too Risky, Need Close Monitoring Due to Risk of Patient Decompensation, Need For Continuous Telemetry Monitoring, Risk of Complication if Not Cared For in H ospital, Risk of Diagnosis Which Will Require Inpatient Eval/Care/Monitoring Post Hospital Care: D/C or Transfer Summary - Plan Summary Plan Summary: Restart on Carvedilol therapy. Recommend SNF short term rehabilitation upon discharge.
[2019-07-22] MEDS: ATORVASTATIN CALCIUM 40 MG TABLET PO SCH (21:06)
[2019-07-22] MEDS: CARVEDILOL 6.25 MG TABLET PO SCH (21:06)
--- NOTE | 2019-07-22 22:26 | PDOC PROGRESS REPORT ---
Subjective Progress Note for:: 07/22/19 Subjective:: Patient is currently now on nasal cannula and has been off the BiPAP for at least the last 24 to 48 hours. So far he is tolerating to be just a nasal cannula. He actually looks better today. He is more awake, communicating and answering questions appropriately. He even ate a good breakfast this morning. His dobutamine drip has been discontinued 2 days ago. His Harris catheter has been removed as well. Unfortunately since it was removed the patient's urine o utput significantly decreased for the last 48 hours with urine output anywhere between 300 to 400 mL only. He is now with positive fluid balance. A condom catheter was inserted today. Patient has been off diuretics for more than a week now since July 13. Reason For Visit: ACUTE ON CHRONIC CHF,CHRONIC A-FIB,DM TYPE 2,HTN,C Physical Exam Vital Signs: Temp Pulse Resp BP Pulse Ox 98.0 F 98 22 H 126/59 H 91 L 07/22/19 08:10 07/22/19 08:10 07/22/19 08:10 07/22/19 08:10 07/22/19 08:10 Intake & Output 07/21/19 07/22/19 07/23/19 06:59 06:59 06:59 Intake Total 1149 440 Output Total 475 350 Balance 674 90 Weight 79.4 kg 79.3 kg Exam: General appearance: PRESENT: no acute distress, cooperative, well-developed, well-nourished Head exam: PRESENT: atraumatic, normocephalic Eye exam: PRESENT: conjunctiva pink, PERRLA. ABSENT: scleral icterus Neck exam: ABSENT: JVD Respiratory exam: PRESENT: Diminished breath sounds. ABSENT: crackles, rales, rhonchi, unlabored, wheezes Cardiovascular exam: PRESENT: Regular rate rhythm -+S1, +S2. ABSENT: diastolic murmur, systolic murmur GI/Abdominal exam: PRESENT: normal bowel sounds, soft. ABSENT: guarding, mass, tenderness Extremities exam: Mild upper extremity edema with grade 1 bilateral lower extremity pitting edema Neurological exam: PRESENT: alert, awake, oriented to person, place and time. Skin exam: PRESENT: dry, warm, Cardiovascular exam: PRESENT: irregular rhythm, +S1, +S2 GI/Abdominal exam: PRESENT: distended, soft. ABSENT: guarding, tenderness Results Laboratory Results: 07/18/19 05:53 07/21/19 13:30 07/21/19 13:30 Sodium 138.9 Potassium 5.3 H Chloride 103 Carbon Dioxide 26 Anion Gap 10 BUN 86 H Creatinine 5.22 H Est GFR ( Amer) 13 L Glucose 84 Calcium 10.7 H 07/09/19 07/09/19 07/17/19 15:38 15:38 05:19 Creatine Kinase 33 L CK-MB (CK-2) 1.89 Troponin I 0.175 NT-Pro-B Natriuret Pep 87315 H 76146 H Impressions: Renal Ultrasound 07/12/19 00:00 IMPRESSION: 1. Increased echogenicity of the renal parenchyma and thinning of the renal cortices - clinical correlation for chronic medical renal disease is recommended. 2. No hydronephrosis. 3. Harris catheter within the urinary bladder. Chest X-Ray 07/15/19 08:08 IMPRESSION: CHF. No significant change. Chest Ultrasound 07/16/19 00:00 IMPRESSION: Small right pleural effusion. Assessment & Plan - Diagnosis (1) Acute kidney injury superimposed on chronic kidney disease Is this a current diagnosis for this admission?: Yes Plan: Due to cardiorenal syndrome with a baseline hypertensive nephrosclerosis. Currently the patient's urine output is declining and almost at the oliguric level since the dobutamine drip has been discontinued. Will monitor the patient's urine output for the whole day and consider reinitiating diuretics. At this time there is no urgent indication for initiating renal replacement therapy. The patient has indicated that if needed he is willing to do dialysis. Continue to monitor the patient's kidney function closely. Will check chest x- ray. (2) Acute on chronic combined systolic (congestive) and diastolic (congestive) heart failure Is this a current diagnosis for this admission?: Yes Plan: Biventricular congestive heart failure with LVEF of 20 to 25% and moderately reduced right ventricular function. Patient has been on dobutamine drip with improvement was discontinued [address] Terrazas following the patient. (3) Acute respiratory acidosis Is this a current diagnosis for this admission?: Yes Plan: Patient has been off the APAP/BiPAP for the last couple of days and so far has been tolerating nasal cannula. Management per primary care provider. (4) Pneumonia Is this a current diagnosis for this admission?: Yes Plan: On IV Zosyn. 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 (8) Hypertension Qualifiers: Hypertension type: essential hypertension Qualified Code(s): I10 - Essential (primary) hypertension Is this a current diagnosis for this admission?: Yes Plan: Currently controlled. - Time Time with patient: 15-25 minutes
[2019-07-22] MEDS ORDERED: FUROSEMIDE INJ/PF 40 MG/4 ML SDV IV ONE (22:30)
[2019-07-23] MEDS: PIPERACILLIN SODIUM/TAZOBACTAM 2.25 GM in NORMAL SALINE 50 ML IV SCH (06:23)
[2019-07-23] MEDS: LEVOTHYROXINE SODIUM 0.025 MG TABLET PO SCH (06:23)
[2019-07-23] MEDS: INSULIN LISPRO 100 UNIT/ML 3 ML VIAL SUBCUT SCH ×4 (08:01→21:23)
[2019-07-23] MEDS: GLIPIZIDE 5 MG TABLET PO SCH (09:29)
[2019-07-23 09:38] LABS: HEMATOCRIT 34.2 % (37.9-51.0); HEMOGLOBIN 10.8 g/dL (13.5-17.0); MEAN CORPUSCULAR HEMOGLOBIN 29.2 pg (27.0-33.4); MEAN CORPUSCULAR HGB CONC 31.7 g/dL (32.0-36.0); MEAN CORPUSCULAR VOLUME 92 fl (80-97); PLATELET COUNT 134 10^3/uL (150-450); RED BLOOD COUNT 3.71 10^6/uL (4.35-5.55); RED CELL DISTRIBUTION WIDTH 17.4 % (11.5-14.0); WHITE BLOOD COUNT 5.6 10^3/uL (4.0-10.5)
[2019-07-23 10:04] LABS: ANION GAP 6 (5-19); BLOOD UREA NITROGEN 92 mg/dL (7-20); CALCIUM 10.6 mg/dL (8.4-10.2); CARBON DIOXIDE 28 mmol/L (22-30); CHLORIDE 105 mmol/L (98-107); GLUCOSE 100 mg/dL (75-110); POTASSIUM 5.3 mmol/L (3.6-5.0)
[2019-07-23 10:05] LABS: ABSOLUTE LYMPHOCYTES# (MANUAL) 0.2 10^3/uL (0.5-4.7); ABSOLUTE MONOCYTES # (MANUAL) 0.4 10^3/uL (0.1-1.4); BASOPHILS % (MANUAL) 0 % (0-2); EOSINOPHILS % (MANUAL) 3 % (0-6); LYMPHOCYTES % (MANUAL) 4 % (13-45); MONOCYTES % (MANUAL) 7 % (3-13); SEGMENTED NEUTROPHILS % (MAN) 86 % (42-78); TOTAL CELLS COUNTED 100
[2019-07-23 10:06] LABS: ANISOCYTOSIS 1+; OVALOCYTES 1+; PLATELET COMMENT DECREASED; POIKILOCYTOSIS 1+
[2019-07-23] MEDS: MIDODRINE HCL 5 MG TABLET PO SCH ×3 (10:16→17:11)
[2019-07-23] MEDS: ASCORBIC ACID 500 MG TABLET PO SCH (10:16)
[2019-07-23] MEDS: CARVEDILOL 6.25 MG TABLET PO SCH ×2 (10:16→21:23)
[2019-07-23] MEDS: APIXABAN 2.5 MG TABLET PO SCH ×2 (10:16→21:22)
[2019-07-23] MEDS: PANTOPRAZOLE SODIUM 40 MG TABLET.DR PO SCH (10:16)
[2019-07-23] MEDS: FERROUS SULFATE 325 MG TABLET PO SCH ×2 (10:16→21:22)
[2019-07-23] MEDS: FUROSEMIDE INJ/PF 100 MG/10 ML SDV IV SCH ×2 (10:21→21:22)
--- NOTE | 2019-07-23 15:29 | PDOC PROGRESS REPORT ---
Subjective Progress Note for:: 07/23/19 Subjective:: Patient denied any chest pain. He is not making much urine since he was taken off IV Dobutamine infusion. Restarted on IV Lasix therapy. Remain on supplemental oxygen via nasal cannula and BiPAP support while sleeping. No reported fever or chills. No nausea, vomiting, or abdominal pain. Reason For Visit: ACUTE ON CHRONIC CHF,CHRONIC A-FIB,DM TYPE 2,HTN,C Physical Exam Vital Signs: Temp Pulse Resp BP Pulse Ox 98.0 F 66 18 121/59 L 97 07/23/19 11:47 07/23/19 11:47 07/23/19 11:47 07/23/19 11:47 07/23/19 11:47 Intake & Output 07/22/19 07/23/19 07/24/19 06:59 06:59 06:59 Intake Total 490 840 165 Output Total 350 300 Balance 140 540 165 Weight 79.3 kg 80.1 kg Physical Exam: General appearance: PRESENT: mild distress on supplemental oxygen via nasal cannula support Head exam: PRESENT: atraumatic, normocephalic Eye exam: PRESENT: conjunctiva pink. ABSENT: pallor, scleral icterus Respiratory exam: PRESENT: prolonged expiratory phase - at lung bases Cardiovascular exam: PRESENT: Irregular rhythm, +S1, +S2, systolic murmur Murmur grade: 3 GI/Abdominal exam: PRESENT: normal bowel sounds, soft. ABSENT: distended, guarding, mass, organomegaly, rebound, tenderness : Indwelling Harris catheter in situ. Extremities exam: PRESENT: significantly resolved pedal edema Neurological exam: PRESENT: He is alert and appropriate in responses at the time of my bedside visit. Skin exam: PRESENT: dry, warm, other - improved blister lesion on left leg Murmur grade: 3 Results Laboratory Results: 07/23/19 09:18 07/23/19 09:18 07/23/19 07/23/19 09:18 09:18 WBC 5.6 RBC 3.71 L Hgb 10.8 L Hct 34.2 L MCV 92 MCH 29.2 MCHC 31.7 L RDW 17.4 H Plt Count 134 L Seg Neutrophils % Not Reportable Sodium 139.4 Potassium 5.3 H Chloride 105 Carbon Dioxide 28 Anion Gap 6 BUN 92 H Creatinine 6.15 H Est GFR ( Amer) 11 L Glucose 100 Calcium 10.6 H 07/09/19 07/09/19 07/17/19 15:38 15:38 05:19 Creatine Kinase 33 L CK-MB (CK-2) 1.89 Troponin I 0.175 NT-Pro-B Natriuret Pep 16650 H 52357 H Impressions: Renal Ultrasound 07/12/19 00:00 IMPRESSION: 1. Increased echogenicity of the renal parenchyma and thinning of the renal cortices - clinical correlation for chronic medical renal disease is recommended. 2. No hydronephrosis. 3. Harris catheter within the urinary bladder. Chest Ultrasound 07/16/19 00:00 IMPRESSION: Small right pleural effusion. Chest X-Ray 07/22/19 00:00 IMPRESSION: Right pleural effusion. No significant change. Assessment & Plan - Diagnosis (1) Acute on chronic combined systolic (congestive) and diastolic (congestive) heart failure Is this a current diagnosis for this admission?: Yes (2) CKD (chronic kidney disease) stage 5, GFR less than 15 ml/min Is this a current diagnosis for this admission?: Yes (3) Chronic a-fib Is this a current diagnosis for this admission?: Yes (4) Diabetes mellitus type 2 with complications Is this a current diagnosis for this admission?: Yes (5) Hypertension Qualifiers: Hypertension type: essential hypertension Qualified Code(s): I10 - Essential (primary) hypertension Is this a current diagnosis for this admission?: Yes (6) CAD (coronary atherosclerotic disease) Qualifiers: Coronary Disease-Associated Artery/Lesion type: unspecified vessel or lesion type Associated angina: without angina Is this a current diagnosis for this admission?: Yes (7) HLD (hyperlipidemia) Qualifiers: Hyperlipidemia type: pure hypercholesterolemia Qualified Code(s): E78.00 - Pure hypercholesterolemia, unspecified Is this a current diagnosis for this admission?: Yes (8) Old [place] (myocardial infarction) Is this a current diagnosis for this admission?: Yes (9) Chronic gout Qualifiers: Gout site: unspecified site Presence of tophus: without tophus Is this a current diagnosis for this admission?: Yes (10) Osteoarthritis involving multiple joints on both sides of body Is this a current diagnosis for this admission?: Yes (11) AMS (altered mental status) Is this a current diagnosis for this admission?: Yes (12) Acute respiratory acidosis Is this a current diagnosis for this admission?: Yes (13) Subclinical hypothyroidism Is this a current diagnosis for this admission?: Yes - Time Time Spent with patient: 25-34 minutes Level of Care: IMCU Medications reviewed and adjusted accordingly: Yes Anticipated discharge: SNF Within: Other - Inpatient Certification Based on my medical assessment, after consideration of the patient's comorbidities, presenting symptoms, or acuity I expect that the services needed warrant INPATIENT care.: Yes I certify that my determination is in accordance with my understanding of Medicare's requirements for reasonable and necessary INPATIENT services [42 CFR 412.3e].: Yes Medical Necessity: Significant Comorbidiites Make Outpatient Treatment Too Risky, Need Close Monitoring Due to Risk of Patient Decompensation, Need For Continuous Telemetry Monitoring, Risk of Complication if Not Cared For in Hospital, Risk of Diagnosis Which Will Require Inpatient Eval/Care/Monitoring Post Hospital Care: D/C or Transfer Summary - Plan Summary Plan Summary: I discussed case with Dr. Jean , rose grading supervisor, regarding his kidney function status and concern for possible need for dialysis support in the near future. Continue on all current medication management. His prognosis remain guarded.
[2019-07-23] MEDS: PATIROMER 8.4 GM SUSP PACKET PO SCH (17:11)
--- NOTE | 2019-07-23 19:35 | PDOC PROGRESS REPORT ---
Subjective Progress Note for:: 07/23/19 Subjective:: Patient's mental status waxes and wane according to his nurse today. He remains to be on nasal cannula and wears the BiPAP overnight. When I entered the room he is lying comfortably and is quite sleepy. He is arousable though and able to answer some few questions. I tried explained to him that his kidney function is deteriorating and he is not making a good amount of urine. I reiterated to him that if his kidney function continues to get worse he might need renal replacement therapy in the form of acute hemodialysis. We had this conversation in the past that he always tells me that he is willing to do dialysis. I asked him again today about it and he said he will do it if necessary. For the past 24 hours he only made about 300 mL of urine output. Chest x-ray shows increasing vascular congestion. I gave him a dose of Lasix 40 mg IV last night without good response. Patient's appetite is poor. However he tells me that he does drink fluids. Reason For Visit: ACUTE ON CHRONIC CHF,CHRONIC A-FIB,DM TYPE 2,HTN,C Physical Exam Vital Signs: Temp Pulse Resp BP Pulse Ox 97.4 F 57 L 19 127/77 H 93 07/23/19 03:05 07/23/19 07:00 07/23/19 03:05 07/23/19 03:05 07/23/19 03:05 Intake & Output 07/22/19 07/23/19 07/24/19 06:59 06:59 06:59 Intake Total 490 840 Output Total 350 300 Balance 140 540 Weight 79.3 kg 80.1 kg Exam: General appearance: PRESENT: no acute distress, cooperative, well-developed, well-nourished Head exam: PRESENT: atraumatic, normocephalic Eye exam: PRESENT: conjunctiva slightly pale PERRLA. ABSENT: scleral icterus Neck exam: ABSENT: JVD Respiratory exam: PRESENT: Slightly coarse breath sounds. ABSENT: crackles, rales, rhonchi, unlabored, wheezes Cardiovascular exam: PRESENT: Regular rate rhythm -+S1, +S2. ABSENT: diastolic murmur, systolic murmur GI/Abdominal exam: PRESENT: normal bowel sounds, soft. ABSENT: guarding, mass, tenderness Extremities exam: Trace bilateral lower extremity pitting edema Neurological exam: PRESENT: alert, awake, oriented to person only.. Skin exam: PRESENT: dry, warm, Cardiovascular exam: PRESENT: irregular rhythm, +S1, +S2 GI/Abdominal exam: PRESENT: distended, soft. ABSENT: guarding, tenderness Results Laboratory Results: 07/22/19 07/22/19 07/22/19 11:00 11:00 11:00 WBC 5.7 RBC 3.92 L Hgb 11.6 L Hct 36.7 L MCV 94 MCH 29.5 MCHC 31.6 L RDW 17.6 H Plt Count 111 L Seg Neutrophils % Not Reportable Sodium 138.2 Potassium 5.0 Chloride 105 Carbon Dioxide 24 Anion Gap 9 BUN 88 H Creatinine 5.52 H Est GFR ( Amer) 12 L Glucose 97 Calcium 10.4 H Phosphorus 5.0 H Magnesium 2.2 Total Bilirubin 0.6 AST 26 Alkaline Phosphatase 55 Total Protein 6.2 L Albumin 3.3 L PTH Intact 284.1 H 07/09/19 07/09/19 07/17/19 15:38 15:38 05:19 Creatine Kinase 33 L CK-MB (CK-2) 1.89 Troponin I 0.175 NT-Pro-B Natriuret Pep 01216 H 10688 H Impressions: Renal Ultrasound 07/12/19 00:00 IMPRESSION: 1. Increased echogenicity of the renal parenchyma and thinning of the renal cortices - clinical correlation for chronic medical renal disease is recommended. 2. No hydronephrosis. 3. Harris catheter within the urinary bladder. Chest Ultrasound 07/16/19 00:00 IMPRESSION: Small right pleural effusion. Chest X-Ray 07/22/19 00:00 IMPRESSION: Right pleural effusion. No significant change. Assessment & Plan - Diagnosis (1) Acute kidney injury superimposed on chronic kidney disease Is this a current diagnosis for this admission?: Yes Plan: Due to cardiorenal syndrome with a baseline hypertensive nephrosclerosis. Currently the patient's urine output is declining and almost at the oliguric level since the dobutamine drip has been discontinued. I will start that on Lasix 60 mg IV every 12 hours. At this time there is no urgent indication for initiating renal replacement therapy. The patient has indicated that if needed he is willing to do dialysis. Continue to monitor the patient's kidney function closely. I was able to speak to his power of [place] attorney Pham Hoffman and discussed the patient's deteriorating kidney function and possible need for acute renal replacement therapy in the form of hemodialysis sooner than later. I relayed to her that the patient always tells me that he would do dialysis if needed. She agreed that she would also allow hemodialysis treatment if necessary. So the plan for now is to monitor him over the weekend with IV diuretics and continuous monitoring of kidney function. If he continues to deteriorate then we will plan to do dialysis treatment on Friday. (2) Acute on chronic combined systolic (congestive) and diastolic (congestive) heart failure Is this a current diagnosis for this admission?: Yes Plan: Biventricular congestive heart failure with LVEF of 20 to 25% and moderately reduced right ventricular function. Patient has been on dobutamine drip with improvement was discontinued [address] Terrazas following the patient. (3) Acute respiratory acidosis Is this a current diagnosis for this admission?: Yes Plan: Patient has been off the AVAP/BiPAP for the last couple of days and so far has been tolerating nasal cannula. I think he has chronic CO2 retention and he has been living with it for a while. Management per primary care provider. (4) Pneumonia Is this a current diagnosis for this admission?: Yes Plan: On IV Zosyn. (5) Diabetes mellitus type 2 in obese Is this a current diagnosis for this admission?: Yes (6) Chronic a-fib Is this a current diagnosis for this admission?: Yes (7) Hypercalcemia Is this a current diagnosis for this admission?: Yes Plan: Patient has chronic hypercalcemia secondary to primary/secondary hyperparathyroidism with known history of parathyroid adenoma on previous parathyroid scan. (8) Hypertension Qualifiers: Hypertension type: essential hypertension Qualified Code(s): I10 - Essenti al (primary) hypertension Is this a current diagnosis for this admission?: Yes Plan: Currently controlled. - Notes Notes: Discussed with Dr. Duran. - Time Time with patient: Greater than 35 minutes
[2019-07-23] MEDS: ATORVASTATIN CALCIUM 40 MG TABLET PO SCH (21:22)
[2019-07-24] MEDS: LEVOTHYROXINE SODIUM 0.025 MG TABLET PO SCH (05:58)
--- NOTE | 2019-07-24 09:26 | PDOC PROGRESS REPORT ---
Subjective Progress Note for:: 07/24/19 Subjective:: Patient was admitted for the acute on chronic congestive heart failure Patient is currently doing fair P.o. intake is poor patient's denied any chest pain no short of breath Reason For Visit: ACUTE ON CHRONIC CHF,CHRONIC A-FIB,DM TYPE 2,HTN,C Physical Exam Vital Signs: Temp Pulse Resp BP Pulse Ox 98.0 F 57 L 24 H 125/78 100 07/24/19 06:51 07/24/19 06:51 07/24/19 06:51 07/24/19 06:51 07/24/19 06:51 Intake & Output 07/23/19 07/24/19 07/25/19 06:59 06:59 06:59 Intake Total 840 165 Output Total 300 340 Balance 540 -175 Weight 80.1 kg 77.6 kg General appearance: PRESENT: no acute distress Eye exam: PRESENT: PERRLA Mouth exam: PRESENT: neck supple Respiratory exam: PRESENT: decreased breath sounds Murmur grade: 3 GI/Abdominal exam: PRESENT: normal bowel sounds, soft Neurological exam: PRESENT: alert, awake Skin exam: PRESENT: dry Results Laboratory Results: 07/23/19 09:18 07/23/19 09:18 07/23/19 07/23/19 09:18 09:18 WBC 5.6 RBC 3.71 L Hgb 10.8 L Hct 34.2 L MCV 92 MCH 29.2 MCHC 31.7 L RDW 17.4 H Plt Count 134 L Seg Neutrophils % Not Reportable Sodium 139.4 Potassium 5.3 H Chloride 105 Carbon Dioxide 28 Anion Gap 6 BUN 92 H Creatinine 6.15 H Est GFR ( Amer) 11 L Glucose 100 Calcium 10.6 H 07/09/19 07/09/19 07/17/19 15:38 15:38 05:19 Creatine Kinase 33 L CK-MB (CK-2) 1.89 Troponin I 0.175 NT-Pro-B Natriuret Pep 49029 H 72061 H Impressions: Renal Ultrasound 07/12/19 00:00 IMPRESSION: 1. Increased echogenicity of the renal parenchyma and thinning of the renal cortices - clinical correlation for chronic medical renal disease is recommended. 2. No hydronephrosis. 3. Harris catheter within the urinary bladder. Chest Ultrasound 07/16/19 00:00 IMPRESSION: Small right pleural effusion. Chest X-Ray 07/22/19 00:00 IMPRESSION: Right pleural effusion. No significant change. Assessment & Plan - Diagnosis (1) Acute systolic (congestive) heart failure Is this a current diagnosis for this admission?: Yes (2) Diabetes mellitus type 2 in obese Is this a current diagnosis for this admission?: Yes (3) Anemia Qualifiers: Anemia type: due to chronic kidney disease Chronic kidney disease stage: stage 5, not on chronic dialysis Qualified Code(s): N18.5 - Chronic kidney disease, stage 5 Is this a current diagnosis for this admission?: Yes (4) CAD (coronary atherosclerotic disease) Qualifiers: Coronary Disease-Associated Artery/Lesion type: unspecified vessel or lesion type Associated angina: without angina Is this a current diagnosis for this admission?: Yes (5) CKD (chronic kidney disease) stage 4, GFR 15-29 ml/min Is this a current diagnosis for this admission?: Yes (6) Chronic a-fib Is this a current diagnosis for this admission?: Yes (7) Chronic gout Qualifiers: Gout site: unspecified site Presence of tophus: without tophus Is this a current diagnosis for this admission?: Yes (8) Diabetes mellitus type 2 with complications Is this a current diagnosis for this admission?: Yes - Time Time Spent with patient: 15-24 minutes Level of Care: IMCU Medications reviewed and adjusted accordingly: Yes Anticipated discharge: Other Within: Other - Plan Summary Plan Summary: Continues the current medications
[2019-07-24] MEDS: INSULIN LISPRO 100 UNIT/ML 3 ML VIAL SUBCUT SCH ×4 (10:16→22:09)
[2019-07-24] MEDS: GLIPIZIDE 5 MG TABLET PO SCH (10:20)
[2019-07-24] MEDS: MIDODRINE HCL 5 MG TABLET PO SCH ×3 (10:25→17:12)
[2019-07-24] MEDS: CARVEDILOL 6.25 MG TABLET PO SCH ×2 (10:25→22:08)
[2019-07-24] MEDS: APIXABAN 2.5 MG TABLET PO SCH (10:25)
[2019-07-24] MEDS: PANTOPRAZOLE SODIUM 40 MG TABLET.DR PO SCH (10:26)
[2019-07-24] MEDS: FUROSEMIDE INJ/PF 100 MG/10 ML SDV IV SCH ×2 (10:26→22:09)
[2019-07-24] MEDS: FERROUS SULFATE 325 MG TABLET PO SCH ×2 (10:26→22:08)
[2019-07-24] MEDS: ASCORBIC ACID 500 MG TABLET PO SCH (10:26)
[2019-07-24 16:53] LABS: APPEARANCE,URINE CLEAR; BILIRUBIN,URINE NEGATIVE (NEGATIVE); COLOR,URINE RED; GLUCOSE, URINE NEGATIVE (NEGATIVE); KETONES,URINE NEGATIVE (NEGATIVE); LEUKOCYTE ESTERASE,URINE SMALL (NEGATIVE); NITRITE,URINE NEGATIVE (NEGATIVE); PROTEIN,URINE 100 mg/dL (NEGATIVE); UROBILINOGEN,URINE NEGATIVE mg/dL (<2.0)
[2019-07-24] MEDS: PATIROMER 8.4 GM SUSP PACKET PO SCH (17:14)
[2019-07-24] MEDS: ATORVASTATIN CALCIUM 40 MG TABLET PO SCH (22:09)
[2019-07-25] MEDS: LEVOTHYROXINE SODIUM 0.025 MG TABLET PO SCH (05:21)
--- NOTE | 2019-07-25 09:36 | PDOC PROGRESS REPORT ---
Subjective Progress Note for:: 07/25/19 Subjective:: Patient was admitted for the acute on chronic congestive heart failure Patient is currently doing fair P.o. intake is poor patient's denied any chest pain no short of breath Patient still having some hematuria yesterday currently hold the Eliquis and clearing up Reason For Visit: ACUTE ON CHRONIC CHF,CHRONIC A-FIB,DM TYPE 2,HTN,C Physical Exam Vital Signs: Temp Pulse Resp BP Pulse Ox 97.7 F 64 12 106/54 L 97 07/25/19 06:53 07/25/19 06:53 07/25/19 06:53 07/25/19 06:53 07/25/19 06:53 Intake & Output 07/24/19 07/25/19 07/26/19 06:59 06:59 06:59 Intake Total 165 1310 Output Total 340 925 Balance -175 385 Weight 77.6 kg 78 kg General appearance: PRESENT: no acute distress, well-developed, well-nourished Head exam: PRESENT: atraumatic, normocephalic Eye exam: PRESENT: conjunctiva pink, EOMI, PERRLA. ABSENT: scleral icterus Ear exam: PRESENT: normal external ear exam Mouth exam: PRESENT: moist, tongue midline Neck exam: PRESENT: full ROM. ABSENT: carotid bruit, JVD, lymphadenopathy, thyromegaly Respiratory exam: PRESENT: clear to auscultation amelia Cardiovascular exam: PRESENT: RRR. ABSENT: diastolic murmur, rubs, systolic murmur Murmur grade: 3 Vascular exam: PRESENT: normal capillary refill GI/Abdominal exam: PRESENT: normal bowel sounds, soft. ABSENT: distended, guarding, mass, organolmegaly, rebound, tenderness Rectal exam: PRESENT: deferred Neurological exam: PRESENT: alert, awake, oriented to person, oriented to place, oriented to time, oriented to situation, CN II-XII grossly intact. ABSENT: motor sensory deficit Psychiatric exam: PRESENT: appropriate affect, normal mood. ABSENT: homicidal ideation, suicidal ideation Skin exam: PRESENT: dry, intact, warm. ABSENT: cyanosis, rash Results Laboratory Results: 07/23/19 09:18 07/23/19 09:18 07/24/19 13:31 Urine Color RED Urine Appearance CLEAR Urine pH 6.0 Ur Specific [place] 1.010 Urine Protein 100 H Urine Glucose (UA) NEGATIVE Urine Ketones NEGATIVE Urine Blood LARGE H Urine Nitrite NEGATIVE Ur Leukocyte Esterase SMALL H Urine WBC (Auto) 28 Urine RBC (Auto) >182 07/09/19 07/09/19 07/17/19 15:38 15:38 05:19 Creatine Kinase 33 L CK-MB (CK-2) 1.89 Troponin I 0.175 NT-Pro-B Natriuret Pep 32303 H 89485 H Impressions: Renal Ultrasound 07/12/19 00:00 IMPRESSION: 1. Increased echogenicity of the renal parenchyma and thinning of the renal cortices - clinical correlation for chronic medical renal disease is recommended. 2. No hydronephrosis. 3. Harris catheter within the urinary bladder. Chest Ultrasound 07/16/19 00:00 IMPRESSION: Small right pleural effusion. Chest X-Ray 07/22/19 00:00 IMPRESSION: Right pleural effusion. No significant change. Assessment & Plan - Diagnosis (1) Acute systolic (congestive) heart failure Is this a current diagnosis for this admission?: Yes (2) Diabetes mellitus type 2 in obese Is this a current diagnosis for this admission?: Yes (3) Anemia Qualifiers: Anemia type: due to chronic kidney disease Chronic kidney disease stage: stage 5, not on chronic dialysis Qualified Code(s): N18.5 - Chronic kidney disease, stage 5 Is this a current diagnosis for this admission?: Yes (4) CAD (coronary atherosclerotic disease) Qualifiers: Coronary Disease-Associated Artery/Lesion type: unspecified vessel or lesion type Associated angina: without angina Is this a current diagnosis for this admission?: Yes (5) CKD (chronic kidney disease) stage 4, GFR 15-29 ml/min Is this a current diagnosis for this admission?: Yes (6) Chronic a-fib Is this a current diagnosis for this admission?: Yes (7) Chronic gout Qualifiers: Gout site: unspecified site Presence of tophus: without tophus Is this a current diagnosis for this admission?: Yes (8) Diabetes mellitus type 2 with complications Is this a current diagnosis for this admission?: Yes (9) Hematuria Qualifiers: Hematuria type: unspecified type Qualified Code(s): R31.9 - Hematuria, unspecified Is this a current diagnosis for this admission?: Yes Plan: Currently all getting better we will continue to hold the Eliquis today check the CBC and Chem-7 Restart probably Eliquis tomorrow if remains stable Will get the UA and culture - Time Time Spent with patient: 15-24 minutes Level of Care: IMCU Medications reviewed and adjusted accordingly: Yes Anticipated discharge: SNF Within: Other - Plan Summary Plan Summary: Continues the other current medications
[2019-07-25] MEDS: INSULIN LISPRO 100 UNIT/ML 3 ML VIAL SUBCUT SCH ×4 (10:31→21:25)
[2019-07-25] MEDS: CARVEDILOL 6.25 MG TABLET PO SCH ×2 (10:32→21:24)
[2019-07-25] MEDS: ASCORBIC ACID 500 MG TABLET PO SCH (10:32)
[2019-07-25] MEDS: FUROSEMIDE INJ/PF 100 MG/10 ML SDV IV SCH ×2 (10:32→21:24)
[2019-07-25] MEDS: MIDODRINE HCL 5 MG TABLET PO SCH ×3 (10:32→18:02)
[2019-07-25] MEDS: FERROUS SULFATE 325 MG TABLET PO SCH ×2 (10:32→21:24)
[2019-07-25] MEDS: PANTOPRAZOLE SODIUM 40 MG TABLET.DR PO SCH (10:32)
[2019-07-25] MEDS: PATIROMER 8.4 GM SUSP PACKET PO SCH (20:04)
[2019-07-25] MEDS: ATORVASTATIN CALCIUM 40 MG TABLET PO SCH (21:24)
[2019-07-26 06:09] LABS: ABSOLUTE EOSINOPHILS # (AUTO) 0.1 10^3/uL (0.0-0.6); ABSOLUTE LYMPHOCYTES (AUTO) 0.3 10^3/uL (0.5-4.7); ABSOLUTE MONOCYTES (AUTO) 0.7 10^3/uL (0.1-1.4); BASOPHILS % (AUTO) 0.6 % (0-2); EOSINOPHILS % (AUTO) 1.8 % (0-6); HEMATOCRIT 32.9 % (37.9-51.0); HEMOGLOBIN 10.6 g/dL (13.5-17.0); LYMPHOCYTES % (AUTO) 5.4 % (13-45); MEAN CORPUSCULAR HEMOGLOBIN 29.3 pg (27.0-33.4); MEAN CORPUSCULAR HGB CONC 32.3 g/dL (32.0-36.0); MEAN CORPUSCULAR VOLUME 91 fl (80-97); PLATELET COUNT 163 10^3/uL (150-450); RED BLOOD COUNT 3.64 10^6/uL (4.35-5.55); RED CELL DISTRIBUTION WIDTH 16.9 % (11.5-14.0); SEGMENTED NEUTROPHILS % (AUTO) 78.2 % (42-78); TOTAL CELLS COUNTED % (AUTO) 100 %; WHITE BLOOD COUNT 5.2 10^3/uL (4.0-10.5)
[2019-07-26] MEDS: LEVOTHYROXINE SODIUM 0.025 MG TABLET PO SCH (06:15)
[2019-07-26 06:32] LABS: ANION GAP 12 (5-19); BLOOD UREA NITROGEN 118 mg/dL (7-20); CALCIUM 10.7 mg/dL (8.4-10.2); CARBON DIOXIDE 23 mmol/L (22-30); CHLORIDE 99 mmol/L (98-107); GLUCOSE 81 mg/dL (75-110); POTASSIUM 5.1 mmol/L (3.6-5.0)
[2019-07-26] MEDS: INSULIN LISPRO 100 UNIT/ML 3 ML VIAL SUBCUT SCH ×4 (07:59→21:33)
[2019-07-26] MEDS ORDERED: NORMAL SALINE 1000 ML 1,000 ML IV PRN (09:44)
[2019-07-26] MEDS ORDERED: HEPARIN SOD (PORCINE) 1,000 UNIT/ML 10 ML VIAL IV PRN (09:44)
[2019-07-26] MEDS: PANTOPRAZOLE SODIUM 40 MG TABLET.DR PO SCH (09:51)
[2019-07-26] MEDS: FERROUS SULFATE 325 MG TABLET PO SCH ×2 (09:51→21:32)
[2019-07-26] MEDS: MIDODRINE HCL 5 MG TABLET PO SCH ×4 (09:51→17:44)
[2019-07-26] MEDS: ASCORBIC ACID 500 MG TABLET PO SCH (09:51)
[2019-07-26] MEDS: CARVEDILOL 6.25 MG TABLET PO SCH ×2 (09:52→21:32)
[2019-07-26] MEDS: FUROSEMIDE INJ/PF 100 MG/10 ML SDV IV SCH ×2 (09:52→21:34)
[2019-07-26] MEDS ORDERED: TUBERCULIN,PURIF.PROT.DERIV. 5 TU/0.1 ML TEST 1 ML VIAL ID PRN (11:00)
[2019-07-26 11:53] LABS: INTERNATIONAL RATION (INR) 1.32; PROTHROMBIN TIME 16.5 SEC (11.4-15.4)
--- NOTE | 2019-07-26 12:03 | Operative Report ---
Nonrecallable Operative Report DATE OF SURGERY: 07/26/19 PREOPERATIVE DIAGNOSIS: renal failure POSTOPERATIVE DIAGNOSIS: renal failure OPERATION: trialysis cath insertion rt groin SURGEON: ANGELICA LOPEZ ANESTHESIA: Local TISSUE REMOVED OR ALTERED: none COMPLICATIONS: none ESTIMATED BLOOD LOSS: 25cc. INTRAOPERATIVE FINDINGS: see note PROCEDURE: after time out and site varification, the rt groin prepped with hibeclens the rt groin anesthesized iwth 1%lido plaiin Using a 20-gauge finder needle the right femoral vein was accessed. Then it was accessed with an 18-gauge needle. The wire was then placed through the needle into the inferior vena cava. Small juan was made in the skin with an 11 blade and the dilators were placed over the wire into the vein. Dilators were removed and the 30 cm trials catheter was placed over the wire into the vein. This fixed in place with 2-0 nylon suture. All 3 ports of flushed well and withdrew well. They were flushed again with normal saline. Sterile dressing was applied. The patient tolerated the procedure well. Estimated blood loss was 25 cc.
--- NOTE | 2019-07-26 13:30 | PDOC PROGRESS REPORT ---
Subjective Progress Note for:: 07/26/19 Subjective:: I initially saw the patient at 9:30 AM. He appears to be more somnolent and confused today. His blood pressure is borderline anywhere between 95-129/60 to 90s. He has been making urine with the IV Lasix that I started him on Friday anywhere between 500 to 900 mL for the past 2 days. He tells me that he is breathing good and does not really verbalize any other complaints. Patient's kidney function continues to get worse unfortunately. His potassium is also s tarting to go up despite the Patiromer. I talked with the patient again today regarding dialysis treatment which I recommend we should do today. He consented and agree with that. I did call his daughter again Pham at [phone] and discussed with her again that the patient now needs dialysis. I discussed this with her last Friday and he again gave me her consent due to dialysis treatment. I then went ahead and talk to Dr. Duran who agreed with the plan as well. So I went ahead and consulted Dr. Estrada for trialysis catheter placement which he did. I saw the patient again at 11:45 AM during dialysis treatment. He is a sleeping but arousable. His initial blood pressure is relatively on the low side. He is otherwise calm and comfortable laying down while you are doing dialysis treatment. Reason For Visit: ACUTE ON CHRONIC CHF,CHRONIC A-FIB,DM TYPE 2,HTN,C Physical Exam Vital Signs: Temp Pulse Resp BP Pulse Ox 97.7 F 79 19 95/63 L 100 07/26/19 07:44 07/26/19 07:44 07/26/19 07:44 07/26/19 07:44 07/26/19 07:44 Intake & Output 07/25/19 07/26/19 07/27/19 06:59 06:59 06:59 Intake Total 1310 1165 Output Total 925 500 Balance 385 665 Weight 78 kg 79.9 kg Vitals during dialysis: Blood pressure initially 102/68 and after some saline about 126/60, heart rate of 67, blood flow rate of 250 mL/min and dialysate flow rate of 600 mL/min. Exam: General appearance: PRESENT: no acute distress, cooperative, well-developed, well-nourished slightly somnolent but arousable Head exam: PRESENT: atraumatic, normocephalic Eye exam: PRESENT: conjunctiva slightly pale, PERRLA. ABSENT: scleral icterus Neck exam: ABSENT: JVD Respiratory exam: PRESENT: Diminished and coarse breath sounds. ABSENT: crackles, rales, rhonchi, unlabored, wheezes Cardiovascular exam: PRESENT: Regular rate rhythm -+S1, +S2. ABSENT: diastolic murmur, systolic murmur GI/Abdominal exam: PRESENT: normal bowel sounds, soft. ABSENT: guarding, mass, tenderness Extremities exam: Trace bilateral lower extremity pitting edema Neurological exam: PRESENT: alert, awake, oriented to person only. Skin exam: PRESENT: dry, warm, Cardiovascular exam: PRESENT: irregular rhythm, +S1, +S2 GI/Abdominal exam: PRESENT: distended, soft. ABSENT: guarding, tenderness Results Laboratory Results: 07/26/19 04:57 07/26/19 04:57 07/26/19 07/26/19 04:57 04:57 WBC 5.2 RBC 3.64 L Hgb 10.6 L Hct 32.9 L MCV 91 MCH 29.3 MCHC 32.3 RDW 16.9 H Plt Count 163 Seg Neutrophils % 78.2 H Sodium 134.2 L Potassium 5.1 H Chloride 99 Carbon Dioxide 23 Anion Gap 12 BUN 118 H Creatinine 7.33 H Est GFR ( Amer) 9 L Glucose 81 Calcium 10.7 H 07/24/19 13:31 Clean Catch Midstream Urine Culture - Final C.albicans/C.dubliniensis 07/09/19 07/09/19 07/17/19 15:38 15:38 05:19 Creatine Kinase 33 L CK-MB (CK-2) 1.89 Troponin I 0.175 NT-Pro-B Natriuret Pep 48986 H 36874 H Impressions: Renal Ultrasound 07/12/19 00:00 IMPRESSION: 1. Increased echogenicity of the renal parenchyma and thinning of the renal cortices - clinical correlation for chronic medical renal disease is recommended. 2. No hydronephrosis. 3. Harris catheter within the urinary bladder. Chest Ultrasound 07/16/19 00:00 IMPRESSION: Small right pleural effusion. Chest X-Ray 07/22/19 00:00 IMPRESSION: Right pleural effusion. No significant change. Assessment & Plan - Diagnosis (1) Acute kidney injury superimposed on chronic kidney disease Is this a current diagnosis for this admission?: Yes Plan: Due to cardiorenal syndrome with a baseline hypertensive nephrosclerosis. His urine output is slightly better with IV Lasix with the current dose however his kidney function continues to get worse with worsening mental status and hyp erkalemia. As a stated above I recommended dialysis treatment for which the patient and his daughter Pham consented today. A temporary femoral dialysis catheter was placed by Dr. Estrada. We will do dialysis today for 2.5 hours, using the patient's femoral trialysis catheter, with 2 calcium with 2 potassium bath, blood flow rate of 250 mL per minute, dialysate flow rate of 6 mL per minute, ultrafiltration 1 to 2 L as tolerated by the blood pressure, no heparin and no REG therapy. Discussed treatment plan with our dialysis nurse. Patient will be monitored very closely during dialysis treatment today. (2) Acute on chronic combined systolic (congestive) and diastolic (congestive) heart failure Is this a current diagnosis for this admission?: Yes Plan: Biventricular congestive heart failure with LVEF of 20 to 25% and moderately reduced right ventricular function. Patient has been on dobutamine drip with improvement was discontinued [address] Terrazas following the patient. (3) Acute respiratory acidosis Is this a current diagnosis for this admission?: Yes Plan: Patient has been off the AVAP/BiPAP for the last couple of days and so far has been tolerating nasal cannula. I think he has chronic CO2 retention and he has been living with it for a while. Management per primary care provider. (4) Anemia in chronic kidney disease (CKD) Is this a current diagnosis for this admission?: Yes Plan: We will give Retacrit as needed. I will check his iron panel. (5) Pneumonia Is this a current diagnosis for this admission?: Yes Plan: Treated with 1 week of IV Zosyn. (6) Diabetes mellitus type 2 in obese Is this a current diagnosis for this admission?: Yes (7) Hypercalcemia Is this a current diagnosis for this admission?: Yes Plan: Patient has chronic hypercalcemia secondary to primary/secondary hyperparathyroidism with known history of parathyroid adenoma on previous parathyroid scan. (8) Hypertension Qualifiers: Hypertension type: essential hypertension Qualified Code(s): I10 - Essential (primary) hypertension Is this a current diagnosis for this admission?: Yes Plan: Actually relatively low. Increase midodrine to 5 mg 3 times a day. (9) Chronic a-fib Is this a current diagnosis for this admission?: Yes - Notes Notes: Discussed with Dr. Duran and Pham, patient's daughter. - Time Time with patient: Greater than 35 minutes
[2019-07-26 13:51] LABS: RETICULOCYTE COUNT (AUTO) 0.56 % (0.66-2.85)
[2019-07-26 13:52] LABS: IRON(TIBC) 47.6 ug/dL (49-181)
[2019-07-26 15:02] LABS: FOLATE 7.79 ng/mL (>2.76)
--- NOTE | 2019-07-26 17:03 | PDOC PROGRESS REPORT ---
Subjective Progress Note for:: 07/26/19 Subjective:: Patient remain lucid and denied any chest pain. Breathing is okay with supplemental oxygen via nasal cannula and BiPAP support while sleeping. No reported fever or chills. No nausea, vomiting, or abdominal pain. No fever or chills. Agreed with plan to initiate renal supplementation with hemodialysis. Reason For Visit: ACUTE ON CHRONIC CHF,CHRONIC A-FIB,DM TYPE 2,HTN,C Physical Exam Vital Signs: Temp Pulse Resp BP Pulse Ox 97.7 F 62 19 95/63 L 93 07/26/19 07:44 07/26/19 14:00 07/26/19 07:44 07/26/19 07:44 07/26/19 08:37 Intake & Output 07/25/19 07/26/19 07/27/19 06:59 06:59 06:59 Intake Total 1310 1165 Output Total 925 500 Balance 385 665 Weight 78 kg 79.9 kg Physical Exam: General appearance: PRESENT: mild distress on supplemental oxygen via nasal cannula support Head exam: PRESENT: atraumatic, normocephalic Eye exam: PRESENT: conjunctiva pink. ABSENT: pallor, scleral icterus Respiratory exam: PRESENT: prolonged expiratory phase - at lung bases Cardiovascular exam: PRESENT: Irregular rhythm, +S1, +S2, systolic murmur Murmur grade: 3 GI/Abdominal exam: PRESENT: normal bowel sounds, soft. ABSENT: distended, guarding, mass, organomegaly, rebound, tenderness : Indwelling Harris catheter in situ. Extremities exam: PRESENT: significantly resolved pedal edema Neurological exam: PRESENT: He is alert and appropriate in responses at the time of my bedside visit. Skin exam: PRESENT: dry, warm, other - improved blister lesion on left leg Murmur grade: 3 Results Laboratory Results: 07/26/19 04:57 07/26/19 04:57 07/26/19 07/26/19 07/26/19 04:57 04:57 04:57 WBC 5.2 RBC 3.64 L Hgb 10.6 L Hct 32.9 L MCV 91 MCH 29.3 MCHC 32.3 RDW 16.9 H Plt Count 163 Seg Neutrophils % 78.2 H Retic Count (auto) 0.56 L Sodium 134.2 L Potassium 5.1 H Chloride 99 Carbon Dioxide 23 Anion Gap 12 BUN 118 H Creatinine 7.33 H Est GFR ( Amer) 9 L Glucose 81 Calcium 10.7 H Iron TIBC % Saturation Transferrin Ferritin Vitamin B12 Folate 07/26/19 07/26/19 11:39 11:39 WBC RBC Hgb Hct MCV MCH MCHC RDW Plt Count Seg Neutrophils % Retic Count (auto) Sodium Potassium Chloride Carbon Dioxide Anion Gap BUN Creatinine Est GFR ( Amer) Glucose Calcium Iron 47.6 L TIBC 220 L % Saturation 22 Transferrin 143.93 L Ferritin 211.00 Vitamin B12 394.0 Folate 7.79 07/24/19 13:31 Clean Catch Midstream Urine Culture - Final C.albicans/C.dubliniensis 07/09/19 07/09/19 07/17/19 15:38 15:38 05:19 Creatine Kinase 33 L CK-MB (CK-2) 1.89 Troponin I 0.175 NT-Pro-B Natriuret Pep 02183 H 76389 H Impressions: Renal Ultrasound 07/12/19 00:00 IMPRESSION: 1. Increased echogenicity of the renal parenchyma and thinning of the renal cortices - clinical correlation for chronic medical renal disease is recommended. 2. No hydronephrosis. 3. Harris catheter within the urinary bladder. Chest Ultrasound 07/16/19 00:00 IMPRESSION: Small right pleural effusion. Chest X-Ray 07/22/19 00:00 IMPRESSION: Right pleural effusion. No significant change. Assessment & Plan - Diagnosis (1) Acute on chronic combined systolic (congestive) and diastolic (congestive) heart failure Is this a current diagnosis for this admission?: Yes (2) CKD (chronic kidney disease) stage 5, GFR less than 15 ml/min Is this a current diagnosis for this admission?: Yes (3) Chronic a-fib Is this a current diagnosis for this admission?: Yes (4) Diabetes mellitus type 2 with complications Is this a current diagnosis for this admission?: Yes (5) Hypertension Qualifiers: Hypertension type: essential hypertension Qualified Code(s): I10 - Essential (primary) hypertension Is this a current diagnosis for this admission?: Yes (6) CAD (coronary atherosclerotic disease) Qualifiers: Coronary Disease-Associated Artery/Lesion type: unspecified vessel or lesion type Associated angina: without angina Is this a current diagnosis for this admission?: Yes (7) HLD (hyperlipidemia) Qualifiers: Hyperlipidemia type: pure hypercholesterolemia Qualified Code(s): E78.00 - Pure hypercholesterolemia, unspecified Is this a current diagnosis for this admission?: Yes (8) Old TX (myocardial infarction) Is this a current diagnosis for this admission?: Yes (9) Chronic gout Qualifiers: Gout site: unspecified site Presence of tophus: without tophus Is this a current diagnosis for this admission?: Yes (10) Osteoarthritis involving multiple joints on both sides of body Is this a current diagnosis for this admission?: Yes (11) AMS (altered mental status) Is this a current diagnosis for this admission?: Yes (12) Acute respiratory acidosis Is this a current diagnosis for this admission?: Yes (13) Subclinical hypothyroidism Is this a current diagnosis for this admission?: Yes (14) Anemia in chronic kidney disease (CKD) Qualifiers: Chronic kidney disease stage: on chronic dialysis Qualified Code(s): N18.6 - End stage renal disease; D63.1 - Anemia in chronic kidney disease; Z99.2 - Dependence on renal dialysis Is this a current diagnosis for this admission?: Yes Plan: Continue current medication management. Further need as per nephrology team. - Time Time Spent with patient: 25-34 minutes Level of Care: IMCU Medications reviewed and adjusted accordingly: Yes Anticipated discharge: SNF Within: Other - Inpatient Certification Based on my medical assessment, after consideration of the patient's comorbidities, presenting symptoms, or acuity I expect that the services needed warrant INPATIENT care.: Yes I certify that my determination is in accordance with my understanding of Medicare's requirements for reasonable and necessary INPATIENT services [42 CFR 412.3e].: Yes Medical Necessity: Significant Comorbidiites Make Outpatient Treatment Too Risky, Need Close Monitoring Due to Risk of Patient Decompensation, Need For Continuous Telemetry Monitoring, Need for IV Antibiotics, Need for Surgery, Risk of Complication if Not Cared For in Hospital, Risk of Diagnosis Which Will Require Inpatient Eval/Care/Monitoring Post Hospital Care: D/C or Transfer Summary - Plan Summary Plan Summary: Continue current medication management. Follow up with pending
[2019-07-26] MEDS: PATIROMER 8.4 GM SUSP PACKET PO SCH (20:33)
[2019-07-26] MEDS: ATORVASTATIN CALCIUM 40 MG TABLET PO SCH (21:32)
[2019-07-27] MEDS: LEVOTHYROXINE SODIUM 0.025 MG TABLET PO SCH (06:01)
[2019-07-27 06:57] LABS: ANION GAP 10 (5-19); BLOOD UREA NITROGEN 83 mg/dL (7-20); CALCIUM 10.1 mg/dL (8.4-10.2); CARBON DIOXIDE 28 mmol/L (22-30); CHLORIDE 98 mmol/L (98-107); GLUCOSE 96 mg/dL (75-110); POTASSIUM 4.1 mmol/L (3.6-5.0)
[2019-07-27 07:37] LABS: HEPATITS B SURFACE ANTIGEN Negative (Negative)
[2019-07-27 08:11] LABS: HEPATITIS B CORE AB TOT Negative (Negative)
[2019-07-27] MEDS: INSULIN LISPRO 100 UNIT/ML 3 ML VIAL SUBCUT SCH ×4 (08:30→23:42)
[2019-07-27] MEDS: ASCORBIC ACID 500 MG TABLET PO SCH (09:30)
[2019-07-27] MEDS: PANTOPRAZOLE SODIUM 40 MG TABLET.DR PO SCH (09:30)
[2019-07-27] MEDS: CARVEDILOL 6.25 MG TABLET PO SCH ×2 (09:30→21:55)
[2019-07-27] MEDS: MIDODRINE HCL 5 MG TABLET PO SCH ×3 (09:30→17:22)
[2019-07-27] MEDS: FERROUS SULFATE 325 MG TABLET PO SCH ×2 (09:30→22:45)
[2019-07-27] MEDS: FUROSEMIDE INJ/PF 100 MG/10 ML SDV IV SCH ×2 (09:31→23:43)
--- NOTE | 2019-07-27 10:02 | PDOC PROGRESS REPORT ---
Subjective Progress Note for:: 07/27/19 Subjective:: Patient underwent an uneventful first hemodialysis treatment yesterday. He tolerated very well without any problems or issues. Today the patient appears to be more awake and talking a little bit more. He did not really complain of any shortness of breath nor chest pains or anything else. He tells me that he has been here a long time. I informed him that he is more likely than not that he will be on dialysis permanently now 3 times a week and he consented and continuing. I also called his daughter Pham to inform her that patient will need to be on dialysis now 3 times a week and she also agree with the plan. She informed me that they are looking into rehab facilities and depending on what rehab facility he is given ago then his outpatient dialysis should also be arranged there. Reason For Visit: ACUTE ON CHRONIC CHF,CHRONIC A-FIB,DM TYPE 2,HTN,C Physical Exam Vital Signs: Temp Pulse Resp BP Pulse Ox 97.5 F 89 12 94/63 L 100 07/27/19 08:21 07/27/19 08:21 07/27/19 08:21 07/27/19 08:21 07/27/19 08:21 Intake & Output 07/26/19 07/27/19 07/28/19 06:59 06:59 06:59 Intake Total 1165 368 Output Total 500 800 Balance 665 -432 Weight 79.9 kg 77.3 kg Exam: General appearance: PRESENT: no acute distress, cooperative, well-developed, well-nourished Head exam: PRESENT: atraumatic, normocephalic Eye exam: PRESENT: conjunctiva slightly pale, PERRLA. ABSENT: scleral icterus Neck exam: ABSENT: JVD Respiratory exam: PRESENT: Diminished breath sounds. ABSENT: crackles, rales, rhonchi, unlabored, wheezes Cardiovascular exam: PRESENT: Regular rate rhythm -+S1, +S2. ABSENT: diastolic murmur, systolic murmur GI/Abdominal exam: PRESENT: normal bowel sounds, soft. ABSENT: guarding, mass, tenderness Extremities exam: Trace edema Neurological exam: PRESENT: alert, awake, oriented to person, place but not to time. Skin exam: PRESENT: dry, warm, Cardiovascular exam: PRESENT: irregular rhythm, +S1, +S2 GI/Abdominal exam: PRESENT: distended, soft. ABSENT: guarding, tenderness Results Laboratory Results: 07/26/19 04:57 07/27/19 05:59 07/26/19 07/26/19 07/26/19 04:57 11:39 11:39 Retic Count (auto) 0.56 L Sodium Potassium Chloride Carbon Dioxide Anion Gap BUN Creatinine Est GFR ( Amer) Glucose Calcium Iron 47.6 L TIBC 220 L % Saturation 22 Transferrin 143.93 L Ferritin 211.00 Vitamin B12 394.0 Folate 7.79 07/27/19 05:59 Retic Count (auto) Sodium 135.9 L Potassium 4.1 Chloride 98 Carbon Dioxide 28 Anion Gap 10 BUN 83 H Creatinine 5.75 H Est GFR ( Amer) 12 L Glucose 96 Calcium 10.1 Iron TIBC % Saturation Transferrin Ferritin Vitamin B12 Folate 07/09/19 07/09/19 07/17/19 15:38 15:38 05:19 Creatine Kinase 33 L CK-MB (CK-2) 1.89 Troponin I 0.175 NT-Pro-B Natriuret Pep 99202 H 78103 H Impressions: Renal Ultrasound 07/12/19 00:00 IMPRESSION: 1. Increased echogenicity of the renal parenchyma and thinning of the renal cortices - clinical correlation for chronic medical renal disease is recommended. 2. No hydronephrosis. 3. Harris catheter within the urinary bladder. Chest Ultrasound 07/16/19 00:00 IMPRESSION: Small right pleural effusion. Chest X-Ray 07/22/19 00:00 IMPRESSION: Right pleural effusion. No significant change. Assessment & Plan - Diagnosis (1) Acute kidney injury superimposed on chronic kidney disease Is this a current diagnosis for this admission?: Yes Plan: Due to cardiorenal syndrome with a baseline hypertensive nephrosclerosis. His urine output is slightly better with IV Lasix with the current dose however his kidney function continues to get worse with worsening mental status and hyperkalemia. As a stated above I recommended dialysis treatment for which the patient and his daughter Pham consented today. A temporary femoral dialysis catheter was placed by Dr. Estrada. Patient had his first dialysis treatment yesterday, July 25. As I mentioned above I think the patient will need to be on dialysis now chronically as he reached end-stage renal disease at this point. Patient and daughter agreed with the plan. We will consult vascular surgery, Dr. Estrada for PermCath placement. We will consult case management to arrange outpatient hemodialysis once ready. We will plan to do dialysis on this patient 3 times a week while here in the hospital. Next dialysis will be tomorrow. (2) Acute on chronic combined systolic (congestive) and diastolic (congestive) heart failure Is this a current diagnosis for this admission?: Yes Plan: Biventricular congestive heart failure with LVEF of 20 to 25% and moderately reduced right ventricular function. Patient has been on dobutamine drip with improvement was discontinued [address] Terrazas following the patient. (3) Acute respiratory acidosis Is this a current diagnosis for this admission?: Yes Plan: Patient has been off the AVAP/BiPAP for the last couple of days and so far has been tolerating nasal cannula. I think he has chronic CO2 retention and he has been living with it for a while. Management per primary care provider. (4) Anemia in chronic kidney disease (CKD) Qualifiers: Chronic kidney disease stage: on chronic dialysis Qualified Code(s): N18.6 - End stage renal disease; D63.1 - Anemia in chronic kidney disease; Z99.2 - Dependence on renal dialysis Is this a current diagnosis for this admission?: Yes Plan: We will give Retacrit as needed. Iron panel includes a ferritin of 214 and T sat of 22 which are adequate. (5) Pneumonia Is this a current diagnosis for this admission?: Yes Plan: Treated with 1 week of IV Zosyn. (6) Diabetes mellitus type 2 in obese Is this a current diagnosis for this admission?: Yes (7) Hypercalcemia Is this a current diagnosis for this admission?: Yes Plan: Patient has chronic hypercalcemia secondary to primary/secondary hyperparathyroidism with known history of parathyroid adenoma on previous parathyroid scan. (8) Hypertension Qualifiers: Hypertension type: essential hypertension Qualified Code(s): I10 - Essential (primary) hypertension Is this a current diagnosis for this admission?: Yes Plan: Actually relatively low. Increase midodrine to 5 mg 3 times a day. (9) Chronic a-fib Is this a current diagnosis for this admission?: Yes - Time Time with patient: 15-25 minutes
--- NOTE | 2019-07-27 20:28 | PDOC PROGRESS REPORT ---
Subjective Progress Note for:: 07/27/19 Subjective:: Patient remain lucid and appropriate in responses. He denied any chest pain or difficulty with breathing. He is s/p hemodialysis since yesterday. No reported fever or chills. No nausea, vomiting, or abdominal pain. No fever or chills. He is schedule for HD tomorrow and placement of PermCath tomorrow. Reason For Visit: ACUTE ON CHRONIC CHF,CHRONIC A-FIB,DM TYPE 2,HTN,C Physical Exam Vital Signs: Temp Pulse Resp BP Pulse Ox 98.0 F 61 13 93/42 L 96 07/27/19 16:35 07/27/19 16:35 07/27/19 16:35 07/27/19 16:35 07/27/19 16:35 Intake & Output 07/26/19 07/27/19 07/28/19 06:59 06:59 06:59 Intake Total 1165 368 237 Output Total 500 800 150 Balance 665 -432 87 Weight 79.9 kg 77.3 kg 77.3 kg Physical Exam: General appearance: PRESENT: mild distress on supplemental oxygen via nasal cannula support Head exam: PRESENT: atraumatic, normocephalic Eye exam: PRESENT: conjunctiva pink. ABSENT: pallor, scleral icterus Respiratory exam: PRESENT: prolonged expiratory phase - at lung bases Cardiovascular exam: PRESENT: Irregular rhythm, +S1, +S2, systolic murmur right groin trialysis cath in situ. Murmur grade: 3 GI/Abdominal exam: PRESENT: normal bowel sounds, soft. ABSENT: distended, guarding, mass, organomegaly, rebound, tenderness : Indwelling Harris catheter in situ. Extremities exam: PRESENT: minimal pedal edema Neurological exam: PRESENT: He is alert and appropriate in responses at the time of my bedside visit. Skin exam: PRESENT: dry, warm, other - improved blister lesion on left leg Murmur grade: 3 Results Laboratory Results: 07/26/19 04:57 07/27/19 05:59 07/27/19 05:59 Sodium 135.9 L Potassium 4.1 Chloride 98 Carbon Dioxide 28 Anion Gap 10 BUN 83 H Creatinine 5.75 H Est GFR ( Amer) 12 L Glucose 96 Calcium 10.1 07/09/19 07/09/19 07/17/19 15:38 15:38 05:19 Creatine Kinase 33 L CK-MB (CK-2) 1.89 Troponin I 0.175 NT-Pro-B Natriuret Pep 56400 H 30062 H Impressions: Renal Ultrasound 07/12/19 00:00 IMPRESSION: 1. Increased echogenicity of the renal parenchyma and thinning of the renal cortices - clinical correlation for chronic medical renal disease is recommended. 2. No hydronephrosis. 3. Harris catheter within the urinary bladder. Chest Ultrasound 07/16/19 00:00 IMPRESSION: Small right pleural effusion. Chest X-Ray 07/22/19 00:00 IMPRESSION: Right pleural effusion. No significant change. Assessment & Plan - Diagnosis (1) Acute on chronic combined systolic (congestive) and diastolic (congestive) heart failure Is this a current diagnosis for this admission?: Yes (2) CKD (chronic kidney disease) stage 5, GFR less than 15 ml/min Is this a current diagnosis for this admission?: Yes (3) Chronic a-fib Is this a current diagnosis for this admission?: Yes (4) Diabetes mellitus type 2 with complications Is this a current diagnosis for this admission?: Yes (5) Hypertension Qualifiers: Hypertension type: essential hypertension Qualified Code(s): I10 - Essential (primary) hypertension Is this a current diagnosis for this admission?: Yes (6) CAD (coronary atherosclerotic disease) Qualifiers: Coronary Disease-Associated Artery/Lesion type: unspecified vessel or lesion type Associated angina: without angina Is this a current diagnosis for this admission?: Yes (7) HLD (hyperlipidemia) Qualifiers: Hyperlipidemia type: pure hypercholesterolemia Qualified Code(s): E78.00 - Pure hypercholesterolemia, unspecified Is this a current diagnosis for this admission?: Yes (8) Old PA (myocardial infarction) Is this a current diagnosis for this admission?: Yes (9) Chronic gout Qualifiers: Gout site: unspecified site Presence of tophus: without tophus Is this a current diagnosis for this admission?: Yes (10) Osteoarthritis involving multiple joints on both sides of body Is this a current diagnosis for this admission?: Yes (11) AMS (altered mental status) Is this a current diagnosis for this admission?: Yes (12) Acute respiratory acidosis Is this a current diagnosis for this admission?: Yes (13) Subclinical hypothyroidism Is this a current diagnosis for this admission?: Yes (14) Anemia in chronic kidney disease (CKD) Qualifiers: Chronic kidney disease stage: on chronic dialysis Qualified Code(s): N18.6 - End stage renal disease; D63.1 - Anemia in chronic kidney disease; Z99.2 - Dependence on renal dialysis Is this a current diagnosis for this admission?: Yes - Time Time Spent with patient: 25-34 minutes Level of Care: IMCU Anticipated discharge: SNF - for short term rehabilitation and wound management. Within: Other - Inpatient Certification Based on my medical assessment, after consideration of the patient's comorbidities, presenting symptoms, or acuity I expect that the services needed warrant INPATIENT care.: Yes I certify that my determination is in accordance with my understanding of Medicare's requirements for reasonable and necessary INPATIENT services [42 CFR 412.3e].: Yes Medical Necessity: Significant Comorbidiites Make Outpatient Treatment Too Risky, Need Close Monitoring Due to Risk of Patient Decompensation, Need For Continuous Telemetry Monitoring, Need for IV Antibiotics, Risk of Complication if Not Cared For in Hospital, Risk of Diagnosis Which Will Require Inpatient Eval/Care/Monitoring Post Hospital Care: D/C or Transfer Summary - Plan Summary Plan Summary: Continue current medication management and follow up with surgical team regarding PermCath placement tomorrow.
[2019-07-27] MEDS: ATORVASTATIN CALCIUM 40 MG TABLET PO SCH (22:45)
[2019-07-28] MEDS ORDERED: HEPARIN SOD (PORCINE) 1,000 UNIT/ML 10 ML VIAL IV PRN (05:00)
[2019-07-28] MEDS ORDERED: NORMAL SALINE 1000 ML 1,000 ML IV PRN (05:00)
[2019-07-28] MEDS: LEVOTHYROXINE SODIUM 0.025 MG TABLET PO SCH (05:46)
[2019-07-28] MEDS: PATIROMER 8.4 GM SUSP PACKET PO SCH (05:55)
--- NOTE | 2019-07-28 06:17 | PDOC CONSULTATION ---
Consultation Consult Date: 07/28/19 Provider Consulted: SURGICAL SURGICALIST MD Consult reason:: ESRD, permacath placement History of Present Illness Admission Date/PCP: 07/09/19 14:46 HIMAERIKA SHELTON History of Present Illness: SORIN PINEDA is a 79 year old male with severe congestive heart failure, cardiorenal syndrome, diabetes, and hypertensive nephropathy. Patient has recently required dialysis due to his worsening kidney function. Per Dr. Jean, the patient will require dialysis for the foreseeable future. Consult has been made for permacath placement. The patient appears to be moderately confused. He answers in 1 and 2 word responses. He cannot converse normally. The patient denies chest pain, shortness of breath, fevers, chills, nausea, vomiting, abdominal pain, dizziness, blurry vision. I am unsure how reliable patient is, due to his confusion. Past Medical History Cardiac Medical History: Reports: Congestive Heart Failure, Coronary Artery Disease, Myocardial Infarction, Hyperlipidema Endocrine Medical History: Reports: Diabetes Mellitus Type 2 - Borderline Renal/ Medical History: Reports: End Stage Renal Disease - stage 4 Psychiatric Medical History: Denies: Depression Past Surgical History Past Surgical History: Reports: Coronary Stent, Internal Defibrillator, Orthopedic Surgery - Right clavicle fracture repair, Pacemaker, Other - Head injury requiring metal plate in his skull Social History Smoking Status: Former Smoker Frequency of Alcohol Use: None Hx Recreational Drug Use: No Drugs: None Hx Prescription Drug Abuse: No - Advance Directive Resuscitation Status: Do Not Resuscitate Family History Family History: Reviewed & Not Pertinent Parental Family History Reviewed: Yes Children Family History Reviewed: Yes Sibling(s) Family History Reviewed.: Yes Medication/Allergy Home Medications: Carvedilol [Coreg 6.25 mg Tablet] 6.25 mg PO Q12 07/25/17 Ergocalciferol (Vitamin D2) [Drisdol 50,000 unit (1.25MG) Capsule] 50,000 unit PO [id number] 07/25/17 Glipizide [Glucotrol 5 mg Tablet] 2.5 mg PO DAILY 07/25/17 Patiromer Calcium Sorbitex [Veltassa] 16.8 gm PO Q6AM 07/25/17 Umeclidinium Brm/Vilanterol Tr [Anoro Ellipta 62.5-25 Mcg INH] 1 each IH DAILY 07/20/18 Allopurinol [Zyloprim 100 mg Tablet] 100 mg PO Q3D 07/09/19 Apixaban [Eliquis 2.5 mg Tablet] 2.5 mg PO Q12 07/09/19 Ascorbic Acid [Vitamin C 500 mg Tablet] 500 mg PO DAILY 07/09/19 Atorvastatin Calcium [Lipitor 40 mg Tablet] 40 mg PO QPM 07/09/19 Docusate Sodium [Colace 100 mg Capsule] 100 mg PO BID 07/09/19 Ferrous Sulfate [Feosol 325 mg Tablet] 325 mg PO Q12 07/09/19 Furosemide [Lasix 40 mg Tablet] 40 mg PO BID 07/09/19 Hydralazine HCl [Apresoline 25 mg Tablet] 25 mg PO Q8 07/09/19 Allergies/Adverse Reactions: No Known Allergies Allergy (Verified 07/20/18 15:07) Review of Systems Constitutional: ABSENT: chills, fever(s) Eyes: ABSENT: visual disturbances Ears: ABSENT: hearing changes Nose, Mouth, and Throat: ABSENT: sore throat Cardiovascular: ABSENT: chest pain Respiratory: ABSENT: cough Gastrointestinal: ABSENT: abdominal pain Musculoskeletal: ABSENT: back pain Integumentary: ABSENT: rash Neurological: PRESENT: confusion. ABSENT: dizziness Psychiatric: PRESENT: anxiety Endocrine: ABSENT: cold intolerance, heat intolerance Hematologic/Lymphatic: ABSENT: easy bleeding, easy bruising Physical Exam Vital Signs: Temp Pulse Resp BP Pulse Ox 98.0 F 61 13 93/42 L 96 07/27/19 16:35 07/27/19 16:35 07/27/19 16:35 07/27/19 16:35 07/27/19 16:35 Intake & Output 07/26/19 07/27/19 07/28/19 06:59 06:59 06:59 Intake Total 1165 368 237 Output Total 500 800 150 Balance 665 -432 87 Weight 79.9 kg 77.3 kg 77.3 kg General appearance: PRESENT: no acute distress, cooperative Head exam: PRESENT: atraumatic, normocephalic Eye exam: PRESENT: EOMI, PERRLA. ABSENT: scleral icterus Mouth exam: PRESENT: moist, neck supple Neck exam: ABSENT: meningismus, tenderness, thyromegaly, tracheal deviation Respiratory exam: PRESENT: unlabored. ABSENT: chest wall tenderness, tachypnea, wheezes Cardiovascular exam: ABSENT: tachycardia Pulses: PRESENT: normal radial pulses GI/Abdominal exam: PRESENT: soft. ABSENT: rebound, tenderness Rectal exam: PRESENT: deferred Extremities exam: ABSENT: clubbing Musculoskeletal exam: ABSENT: deformity Neurological exam: PRESENT: awake. ABSENT: oriented to person, oriented to place, oriented to time, oriented to situation Psychiatric exam: PRESENT: other - moderately confused Focused psych exam: PRESENT: restlessness Skin exam: ABSENT: cyanosis, erythema, jaundice Results Laboratory Results: 07/26/19 04:57 07/27/19 05:59 07/27/19 05:59 Sodium 135.9 L Potassium 4.1 Chloride 98 Carbon Dioxide 28 Anion Gap 10 BUN 83 H Creatinine 5.75 H Est GFR ( Amer) 12 L Glucose 96 Calcium 10.1 07/09/19 07/09/19 07/17/19 15:38 15:38 05:19 Creatine Kinase 33 L CK-MB (CK-2) 1.89 Troponin I 0.175 NT-Pro-B Natriuret Pep 94541 H 19867 H Impressions: Renal Ultrasound 07/12/19 00:00 IMPRESSION: 1. Increased echogenicity of the renal parenchyma and thinning of the renal cortices - clinical correlation for chronic medical renal disease is recommended. 2. No hydronephrosis. 3. Harris catheter within the urinary bladder. Chest Ultrasound 07/16/19 00:00 IMPRESSION: Small right pleural effusion. Chest X-Ray 07/22/19 00:00 IMPRESSION: Right pleural effusion. No significant change. Assessment & Plan - Diagnosis (1) CKD (chronic kidney disease) stage 5, GFR less than 15 ml/min Is this a current diagnosis for this admission?: Yes - Plan Summary Plan Summary: This is a 79-year-old male with end-stage renal disease. He is in need of a permacath for more stable dialysis access. Patient will be made n.p.o. He is due for dialysis this morning. Aafterward if he is doing well, plan for permacath placement. Risks and benefits were discussed with the daughter. Informed consent obtained and on chart.
[2019-07-28 07:27] LABS: ABSOLUTE EOSINOPHILS # (AUTO) 0.1 10^3/uL (0.0-0.6); ABSOLUTE LYMPHOCYTES (AUTO) 0.3 10^3/uL (0.5-4.7); ABSOLUTE MONOCYTES (AUTO) 0.7 10^3/uL (0.1-1.4); ABSOLUTE NEUT (AUTO) 3.4 10^3/uL (1.7-8.2); BASOPHILS % (AUTO) 0.5 % (0-2); EOSINOPHILS % (AUTO) 1.6 % (0-6); HEMATOCRIT 31.8 % (37.9-51.0); HEMOGLOBIN 10.1 g/dL (13.5-17.0); MEAN CORPUSCULAR HEMOGLOBIN 28.8 pg (27.0-33.4); MEAN CORPUSCULAR HGB CONC 31.8 g/dL (32.0-36.0); MEAN CORPUSCULAR VOLUME 91 fl (80-97); PLATELET COUNT 196 10^3/uL (150-450); RED BLOOD COUNT 3.52 10^6/uL (4.35-5.55); SEGMENTED NEUTROPHILS % (AUTO) 76.9 % (42-78); TOTAL CELLS COUNTED % (AUTO) 100 %; WHITE BLOOD COUNT 4.5 10^3/uL (4.0-10.5)
[2019-07-28 07:58] LABS: ANION GAP 9 (5-19); BLOOD UREA NITROGEN 93 mg/dL (7-20); CALCIUM 10.4 mg/dL (8.4-10.2); CARBON DIOXIDE 30 mmol/L (22-30); CHLORIDE 97 mmol/L (98-107); GLUCOSE 82 mg/dL (75-110); PHOSPHORUS 4.9 mg/dL (2.5-4.5); POTASSIUM 4.3 mmol/L (3.6-5.0)
[2019-07-28] MEDS: INSULIN LISPRO 100 UNIT/ML 3 ML VIAL SUBCUT SCH ×4 (08:23→21:58)
[2019-07-28] MEDS: PANTOPRAZOLE SODIUM 40 MG TABLET.DR PO SCH (08:23)
[2019-07-28] MEDS: MIDODRINE HCL 5 MG TABLET PO SCH ×3 (10:04→18:16)
[2019-07-28] MEDS: FERROUS SULFATE 325 MG TABLET PO SCH ×2 (10:04→21:59)
[2019-07-28] MEDS: CARVEDILOL 6.25 MG TABLET PO SCH ×2 (10:04→21:56)
[2019-07-28] MEDS: ASCORBIC ACID 500 MG TABLET PO SCH (10:05)
--- NOTE | 2019-07-28 10:06 | PDOC PROGRESS REPORT ---
Subjective Progress Note for:: 07/28/19 Subjective:: I am seeing the patient during dialysis this morning. He is awake and answering questions. As usual he does not really complain much of anything. He is tolerating dialysis. Currently we are using his femoral dialysis catheter. He is a scheduled for PermCath placement at 12 noon today. Reason For Visit: ACUTE ON CHRONIC CHF,CHRONIC A-FIB,DM TYPE 2,HTN,C Physical Exam Vital Signs: Temp Pulse Resp BP Pulse Ox 97.8 F 74 23 H 98/64 L 97 07/28/19 03:19 07/28/19 06:42 07/28/19 03:19 07/28/19 03:19 07/28/19 06:05 Intake & Output 07/27/19 07/28/19 07/29/19 06:59 06:59 06:59 Intake Total 368 237 Output Total 800 150 Balance -432 87 Weight 77.3 kg 78 kg Vitals during dialysis: Blood pressure 111/62, heart rate of 66, blood flow rate of 250 mL/min and dialysate flow rate of 600 mL/min. Exam: General appearance: PRESENT: no acute distress, cooperative, well-developed, well-nourished Head exam: PRESENT: atraumatic, normocephalic Eye exam: PRESENT: conjunctiva slightly pale, PERRLA. ABSENT: scleral icterus Neck exam: ABSENT: JVD Respiratory exam: PRESENT: Diminished but clear breath sounds. ABSENT: crackles, rales, rhonchi, unlabored, wheezes Cardiovascular exam: PRESENT: Regular rate rhythm -+S1, +S2. ABSENT: diastolic murmur, systolic murmur GI/Abdominal exam: PRESENT: normal bowel sounds, soft. ABSENT: guarding, mass, tenderness Extremities exam: Trace bilateral edema Neurological exam: PRESENT: alert, awake, oriented to person, place but not to time. Skin exam: PRESENT: dry, warm, Cardiovascular exam: PRESENT: irregular rhythm, +S1, +S2 GI/Abdominal exam: PRESENT: distended, soft. ABSENT: guarding, tenderness Results Laboratory Results: 07/28/19 06:30 07/28/19 06:30 07/28/19 07/28/19 06:30 06:30 WBC 4.5 RBC 3.52 L Hgb 10.1 L Hct 31.8 L MCV 91 MCH 28.8 MCHC 31.8 L RDW 17.0 H Plt Count 196 Seg Neutrophils % 76.9 Sodium 135.9 L Potassium 4.3 Chloride 97 L Carbon Dioxide 30 Anion Gap 9 BUN 93 H Creatinine 6.40 H Est GFR ( Amer) 10 L Glucose 82 Calcium 10.4 H Phosphorus 4.9 H Magnesium 2.0 07/09/19 07/09/19 07/17/19 15:38 15:38 05:19 Creatine Kinase 33 L CK-MB (CK-2) 1.89 Troponin I 0.175 NT-Pro-B Natriuret Pep 23584 H 34163 H Impressions: Renal Ultrasound 07/12/19 00:00 IMPRESSION: 1. Increased echogenicity of the renal parenchyma and thinning of the renal cortices - clinical correlation for chronic medical renal disease is recommended. 2. No hydronephrosis. 3. Harris catheter within the urinary bladder. Chest Ultrasound 07/16/19 00:00 IMPRESSION: Small right pleural effusion. Chest X-Ray 07/22/19 00:00 IMPRESSION: Right pleural effusion. No significant change. Assessment & Plan - Diagnosis (1) End stage renal disease on dialysis Is this a current diagnosis for this admission?: Yes Plan: Patient had progressive worsening of his chronic kidney disease and is now which end-stage renal disease that would require chronic hemodialysis treatments. Patient's urine output remains to be decreased despite IV Lasix. We will do dialysis today for 2.5 hours, using the patient's femoral trialysis catheter, with 2 potassium bath, blood flow rate of 250 mL per minute, dialysate flow rate of 600 mL per minute, ultrafiltration 1 to 2 L as tolerated, no heparin and no Retacrit. Patient is closely monitored throughout dialysis treatment. Ultrafiltration will be adjusted accordingly per blood pressure. PermCath is to be placed after dialysis today per surgery. environmental planner to arrange outpatient dialysis close to the rehab facility where the patient is going. (2) Acute kidney injury superimposed on chronic kidney disease Is this a current diagnosis for this admission?: Yes Plan: Due to cardiorenal syndrome with a baseline hypertensive nephrosclerosis. Patient has not much response with IV furosemide. As a stated above patient has now reached end-stage renal disease that would require chronic dialysis treatment. (3) Acute on chronic combined systolic (congestive) and diastolic (congestive) heart failure Is this a current diagnosis for this admission?: Yes Plan: Biventricular congestive heart failure with LVEF of 20 to 25% and moderately reduced right ventricular function. Patient has been on dobutamine drip with improvement was discontinued [address] Terrazas has seen the patient. (4) Acute respiratory acidosis Is this a current diagnosis for this admission?: Yes Plan: Patient has been off the AVAP/BiPAP for the last couple of days and so far has been tolerating nasal cannula. I think he has chronic CO2 retention and he has been living with it for a while. Management per primary care provider. (5) Anemia in chronic kidney disease (CKD) Qualifiers: Chronic kidney disease stage: on chronic dialysis Qualified Code(s): N18.6 - End stage renal disease; D63.1 - Anemia in chronic kidney disease; Z99.2 - Dependence on renal dialysis Is this a current diagnosis for this admission?: Yes Plan: We will give Retacrit as needed. Iron panel includes a ferritin of 214 and T sat of 22 which are adequate. (6) Hypercalcemia Is this a current diagnosis for this admission?: Yes Plan: Patient has chronic hypercalcemia secondary to primary/secondary hyperparathyroidism with known history of parathyroid adenoma on previous parathyroid scan. (7) Chronic kidney disease-mineral and bone disorder Is this a current diagnosis for this admission?: Yes Plan: His phosphorus is 4.9. PTH is 284 which is due to a combination of primary and secondary hyperparathyroidism in a patient with known parathyroid adenoma. Low phosphorus diet. (8) Pneumonia Is this a current diagnosis for this admission?: Yes Plan: Treated with 1 week of IV Zosyn. (9) Diabetes mellitus type 2 in obese Is this a current diagnosis for this admission?: Yes (10) Hypertension Qualifiers: Hypertension type: essential hypertension Qualified Code(s): I10 - E ssential (primary) hypertension Is this a current diagnosis for this admission?: Yes Plan: Acceptable control. Continue midodrine to 5 mg 3 times a day. (11) Chronic a-fib Is this a current diagnosis for this admission?: Yes - Time Time with patient: 15-25 minutes
[2019-07-28] MEDS: FUROSEMIDE INJ/PF 100 MG/10 ML SDV IV SCH ×2 (10:36→21:58)
[2019-07-28] MEDS ORDERED: HEPARIN SOD (PORCINE) 1,000 UNIT/ML 10 ML VIAL ONE (13:02)
[2019-07-28] MEDS ORDERED: LIDOCAINE 1%/EPINEPHRINE INJ 20 ML VIAL ONE (13:02)
[2019-07-28] MEDS ORDERED: FENTANYL CITRATE INJ/PF 100 MCG/2 ML AMPUL ONE (13:04)
[2019-07-28] MEDS ORDERED: MIDAZOLAM 2 MG/2 ML INJ ONE (13:05)
[2019-07-28] MEDS ORDERED: PROPOFOL INJ 200 MG/20 ML VIAL IV ONE (13:05)
[2019-07-28] MEDS ORDERED: CEFAZOLIN INJ 1 GM VIAL ONE (14:00)
--- NOTE | 2019-07-28 14:51 | Operative Report ---
Nonrecallable Operative Report DATE OF SURGERY: 07/28/19 PREOPERATIVE DIAGNOSIS: Renal failure POSTOPERATIVE DIAGNOSIS: Renal failure OPERATION: Permacath placement right internal jugular vein SURGEON: ANGELICA LOPEZ ANESTHESIA: Moderate Sedation TISSUE REMOVED OR ALTERED: None COMPLICATIONS: None ESTIMATED BLOOD LOSS: 25 cc INTRAOPERATIVE FINDINGS: See note PROCEDURE: Every 6 hours P patient was brought the operating awake alert in stable condition placed on the operative table in a supine position and given IV sedation for the procedure. The right neck and chest were prepped and draped in usual sterile fashion. After appropriate timeout and site verification the procedure commenced. We used 1% lidocaine plain to anesthetize the skin over the anterior then using a finder needle 22-gauge placed into this internal jugular vein to confirm its location. Then using a 16-gauge needle we gained access to the internal jugular vein on the right side and passed a wire into the superior vena cava confirmed on fluoroscopy. The serial dilators were then placed over the wire. They were removed the dilator transducer was then placed over the wire into the superior vena cava. We then anesthetized the right lateral chest wall with 1% lidocaine a small incision was made with a 15 blade at the lateral aspect of the clavicle inferior to it. Then using a tunnel maker supplied with a kit the permacath 28 [place] was tunneled from that point to the internal jugular vein stick site leaving the cuff at the distal end of the tunnel. The end of the catheter was then placed into the tear-away introducer which was torn away. Using Omnipaque we were able to confirm good placement of the tip of the catheter in the superior vena cava just above the right atrium. And it flowed well and withdrew easily. The catheter was then fixed to the chest wall skin with 2-0 Prolene suture in the internal jugular vein stick site was closed with 1 stitch of 3-0 Vicryl in the subcutaneous tissue and Steri-Strips closed the skin incision. The patient tolerated the procedure well and was returned to recovery in stable condition
--- NOTE | 2019-07-28 15:20 | RADIOLOGY REPORT (SQ) ---
EXAM DESCRIPTION: FLUORO/CV PLACEMENT IMAGES COMPLETED DATE/TIME: 07/28/2019 3:10 pm REASON FOR STUDY: [facility] RIGHT SIDE ASST WITH FLUORO IN OR COMPARISON: None. FLUOROSCOPY TIME: 4.6 minutes Spot images saved to PACS. TECHNIQUE: Intra-operative images acquired during surgical procedure to evaluate progress. NUMBER OF IMAGES: 8 LIMITATIONS: None. FINDINGS: Fluoroscopy was provided for intraoperative procedure. Please refer to the operative repo rt for further discussion. IMPRESSION: IMAGE(S) OBTAINED DURING PROCEDURE. COMMENT: Quality ID [id number]: Final reports for procedures using fluoroscopy that document radiation exp osure indices, or exposure time and number of fluorographic images (if radiation exposure indices are not available) Please consult full operative report of the attending physician for description of the procedure. TECHNICAL DOCUMENTATION: JOB ID: [id number] 2010 [employer]- All Rights Reserved Reading location - IP/workstation name: [email or web address]
--- NOTE | 2019-07-28 15:33 | RADIOLOGY REPORT (SQ) ---
EXAM DESCRIPTION: CHEST SINGLE VIEW IMAGES COMPLETED DATE/TIME: 07/28/2019 3:23 pm REASON FOR STUDY: POST OP PERM CATH COMPARISON: 07/22/2019 EXAM PARAMETERS: NUMBER OF VIEWS: One view. TECHNIQUE: Single frontal radiographic view of the chest acquired. RADIATION DOSE: NA LIMITATIONS: None. FINDINGS: LUNGS AND PLEURA: Persistent bilateral alveolar interstitial airspace disease most likely edema. Right-sided pleural thickening. Small bilateral effusions right greater than left. No pneum othorax. MEDIASTINUM AND HILAR STRUCTURES: No masses. Contour normal. HEART AND VASCULAR STRUCTURES: Heart is enlarged with central vascular prominence. BONES: No acute findings. HARDWARE: Dialysis catheter is in place. Tip overlies the region of the SVC. Battery pack and leads remain in place. OTHER: No other significant finding. IMPRESSION: No pneumothorax following right-sided central line placement as described. Persistent b ilateral airspace disease most likely edema. There are persistent bilateral pleural effusions. TECHNICAL DOCUMENTATION: JOB ID: [id number] 2010 [employer]- All Rights Reserved Reading location - IP/workstation name: [email or web address]
[2019-07-28] MEDS: HYDRALAZINE HCL 25 MG TABLET PO SCH (21:56)
[2019-07-28] MEDS: ATORVASTATIN CALCIUM 40 MG TABLET PO SCH (21:59)
--- NOTE | 2019-07-28 23:55 | PDOC PROGRESS REPORT ---
Subjective Progress Note for:: 07/28/19 Subjective:: Patient is more coherent today. He had hemodialysis and his is s/p Perm Cath placement. No reported chest pain or difficulty with breathing. No reported fever or chills. No nausea, vomiting, or abdominal pain. Reason For Visit: ACUTE ON CHRONIC CHF,CHRONIC A-FIB,DM TYPE 2,HTN,C Physical Exam Vital Signs: Temp Pulse Resp BP Pulse Ox 97.4 F 55 L 20 108/92 H 96 07/28/19 20:00 07/28/19 20:00 07/28/19 20:00 07/28/19 20:00 07/28/19 20:17 Intake & Output 07/27/19 07/28/19 07/29/19 06:59 06:59 06:59 Intake Total 553 297 4644 Output Total 466 492 2537 Balance -432 87 -900 Weight 77.3 kg 78 kg Physical Exam: General appearance: PRESENT: mild distress on supplemental oxygen via nasal cannula support Head exam: PRESENT: atraumatic, normocephalic Eye exam: PRESENT: conjunctiva pink. ABSENT: pallor, scleral icterus Respiratory exam: PRESENT: prolonged expiratory phase - at lung bases Cardiovascular exam: PRESENT: Irregular rhythm, +S1, +S2, systolic murmur s/p right IJ perm cath placement and right groin trialysis cath removal with dressing over site of hematoma. Murmur grade: 3 GI/Abdominal exam: PRESENT: normal bowel sounds, soft. ABSENT: distended, guarding, mass, organomegaly, rebound, tenderness Extremities exam: PRESENT: minimal pedal edema Neurological exam: PRESENT: He is alert and appropriate in responses at the time of my bedside visit. Skin exam: PRESENT: dry, warm, other - improved blister lesion on left leg Murmur grade: 3 Results Laboratory Results: 07/28/19 06:30 07/28/19 06:30 07/28/19 07/28/19 06:30 06:30 WBC 4.5 RBC 3.52 L Hgb 10.1 L Hct 31.8 L MCV 91 MCH 28.8 MCHC 31.8 L RDW 17.0 H Plt Count 196 Seg Neutrophils % 76.9 Sodium 135.9 L Potassium 4.3 Chloride 97 L Carbon Dioxide 30 Anion Gap 9 BUN 93 H Creatinine 6.40 H Est GFR ( Amer) 10 L Glucose 82 Calcium 10.4 H Phosphorus 4.9 H Magnesium 2.0 07/09/19 07/09/19 07/17/19 15:38 15:38 05:19 Creatine Kinase 33 L CK-MB (CK-2) 1.89 Troponin I 0.175 NT-Pro-B Natriuret Pep 16118 H 66386 H Impressions: Renal Ultrasound 07/12/19 00:00 IMPRESSION: 1. Increased echogenicity of the renal parenchyma and thinning of the renal cortices - clinical correlation for chronic medical renal disease is recommended. 2. No hydronephrosis. 3. Harris catheter within the urinary bladder. Chest Ultrasound 07/16/19 00:00 IMPRESSION: Small right pleural effusion. Guidance Fluoroscopy 07/28/19 00:00 IMPRESSION: IMAGE(S) OBTAINED DURING PROCEDURE. Chest X-Ray 07/28/19 15:17 IMPRESSION: No pneumothorax following right-sided central line placement as described. Persistent bilateral airspace disease most likely edema. There are persistent bilateral pleural effusions. Assessment & Plan - Diagnosis (1) Acute on chronic combined systolic (congestive) and diastolic (congestive) heart failure Is this a current diagnosis for this admission?: Yes (2) CKD (chronic kidney disease) stage 5, GFR less than 15 ml/min Is this a current diagnosis for this admission?: Yes (3) Chronic a-fib Is this a current diagnosis for this admission?: Yes (4) Diabetes mellitus type 2 with complications Is this a current diagnosis for this admission?: Yes (5) Hypertension Qualifiers: Hypertension type: essential hypertension Qualified Code(s): I10 - Essential (primary) hypertension Is this a current diagnosis for this admission?: Yes (6) CAD (coronary atherosclerotic disease) Qualifiers: Coronary Disease-Associated Artery/Lesion type: unspecified vessel or lesion type Associated angina: without angina Is this a current diagnosis for this admission?: Yes (7) HLD (hyperlipidemia) Qualifiers: Hyperlipidemia type: pure hypercholesterolemia Qualified Code(s): E78.00 - Pure hypercholesterolemia, unspecified Is this a current diagnosis for this admission?: Yes (8) Old [place] (myocardial infarction) Is this a current diagnosis for this admission?: Yes (9) Chronic gout Qualifiers: Gout site: unspecified site Presence of tophus: without tophus Is this a current diagnosis for this admission?: Yes (10) Osteoarthritis involving multiple joints on both sides of body Is this a current diagnosis for this admission?: Yes (11) AMS (altered mental status) Is this a current diagnosis for this admission?: Yes (12) Acute respiratory acidosis Is this a current diagnosis for this admission?: Yes (13) Subclinical hypothyroidism Is this a current diagnosis for this admission?: Yes (14) Anemia in chronic kidney disease (CKD) Qualifiers: Chronic kidney disease stage: on chronic dialysis Qualified Code(s): N18.6 - End stage renal disease; D63.1 - Anemia in chronic kidney disease; Z99.2 - Dependence on renal dialysis Is this a current diagnosis for this admission?: Yes - Time Time Spent with patient: 25-34 minutes Level of Care: IMCU Medications reviewed and adjusted accordingly: Yes Anticipated discharge: SNF Within: Other - Inpatient Certification Based on my medical assessment, after consideration of the patient's co morbidities, presenting symptoms, or acuity I expect that the services needed warrant INPATIENT care.: Yes I certify that my determination is in accordance with my understanding of Medicare's requirements for reasonable and necessary INPATIENT services [42 CFR 412.3e].: Yes Medical Necessity: Significant Comorbidiites Make Outpatient Treatment Too Risky, Need Close Monitoring Due to Risk of Patient Decompensation, Need For Continuous Telemetry Monitoring, Need for Surgery, Risk of Complication if Not Cared For in Hospital, Risk of Diagnosis Which Will Require Inpatient Eval/Care/Monitoring Post Hospital Care: D/C or Transfer Summary - Plan Summary Plan Summary: Continue current medication management. Follow up on SNF placement for short term rehabilitation. HD service management is a limiting factor in his SNF placement. Family was given list of SNF and they will make decision and inform us about their choice.
[2019-07-29] MEDS: LEVOTHYROXINE SODIUM 0.025 MG TABLET PO SCH (05:37)
[2019-07-29] MEDS: HYDRALAZINE HCL 25 MG TABLET PO SCH ×3 (05:37→22:51)
[2019-07-29] MEDS: INSULIN LISPRO 100 UNIT/ML 3 ML VIAL SUBCUT SCH ×4 (07:54→22:44)
[2019-07-29] MEDS: PANTOPRAZOLE SODIUM 40 MG TABLET.DR PO SCH (08:13)
--- NOTE | 2019-07-29 08:24 | PDOC PROGRESS REPORT ---
Subjective Progress Note for:: 07/29/19 Subjective:: No reported chest pain or difficulty with breathing. No reported fever or chills. No nausea, vomiting, or abdominal pain. Reason For Visit: ACUTE ON CHRONIC CHF,CHRONIC A-FIB,DM TYPE 2,HTN,C Physical Exam Vital Signs: Temp Pulse Resp BP Pulse Ox 98.0 F 67 12 109/61 98 07/29/19 07:42 07/29/19 07:42 07/29/19 07:42 07/29/19 07:42 07/29/19 07:42 Intake & Output 07/28/19 07/29/19 07/30/19 06:59 06:59 06:59 Intake Total 237 1200 Output Total 150 2100 Balance 87 -900 Weight 78 kg 71.4 kg Physical Exam: General appearance: PRESENT: mild distress on supplemental oxygen via nasal cannula support Head exam: PRESENT: atraumatic, normocephalic Eye exam: PRESENT: conjunctiva pink. ABSENT: pallor, scleral icterus Respiratory exam: PRESENT: Clear to auscultation, Reduce breath sound at lung bases. Cardiovascular exam: PRESENT: Irregular rhythm, +S1, +S2, systolic murmur s/p right IJ perm cath placement Murmur grade: 3 GI/Abdominal exam: PRESENT: normal bowel sounds, soft. ABSENT: distended, guarding, mass, organomegaly, rebound, tenderness Extremities exam: PRESENT: minimal pedal edema Neurological exam: PRESENT: Alert and appropriate in responses Skin exam: PRESENT: dry, warm, other - improved blister lesion on left leg Murmur grade: 3 Results Laboratory Results: 07/28/19 06:30 07/28/19 06:30 07/09/19 07/09/19 07/17/19 15:38 15:38 05:19 Creatine Kinase 33 L CK-MB (CK-2) 1.89 Troponin I 0.175 NT-Pro-B Natriuret Pep 94049 H 17802 H Impressions: Renal Ultrasound 07/12/19 00:00 IMPRESSION: 1. Increased echogenicity of the renal parenchyma and thinning of the renal cortices - clinical correlation for chronic medical renal disease is recommended. 2. No hydronephrosis. 3. Harris catheter within the urinary bladder. Chest Ultrasound 07/16/19 00:00 IMPRESSION: Small right pleural effusion. Guidance Fluoroscopy 07/28/19 00:00 IMPRESSION: IMAGE(S) OBTAINED DURING PROCEDURE. Chest X-Ray 07/28/19 15:17 IMPRESSION: No pneumothorax following right-sided central line placement as described. Persistent bilateral airspace disease most likely edema. There are persistent bilateral pleural effusions. Assessment & Plan - Diagnosis (1) Acute on chronic combined systolic (congestive) and diastolic (congestive) heart failure Is this a current diagnosis for this admission?: Yes (2) CKD (chronic kidney disease) stage 5, GFR less than 15 ml/min Is this a current diagnosis for this admission?: Yes (3) Chronic a-fib Is this a current diagnosis for this admission?: Yes (4) Diabetes mellitus type 2 with complications Is this a current diagnosis for this admission?: Yes (5) Hypertension Qualifiers: Hypertension type: essential hypertension Qualified Code(s): I10 - Essential (primary) hypertension Is this a current diagnosis for this admission?: Yes (6) CAD (coronary atherosclerotic disease) Qualifiers: Coronary Disease-Associated Artery/Lesion type: unspecified vessel or lesion type Associated angina: without angina Is this a current diagnosis for this admission?: Yes (7) HLD (hyperlipidemia) Qualifiers: Hyperlipidemia type: pure hypercholesterolemia Qualified Code(s): E78.00 - Pure hypercholesterolemia, unspecified Is this a current diagnosis for this admission?: Yes (8) Old [place] (myocardial infarction) Is this a current diagnosis for this admission?: Yes (9) Chronic gout Qualifiers: Gout site: unspecified site Presence of tophus: without tophus Is this a current diagnosis for this admission?: Yes (10) Osteoarthritis involving multiple joints on both sides of body Is this a current diagnosis for this admission?: Yes (11) AMS (altered mental status) Is this a current diagnosis for this admission?: Yes (12) Acute respiratory acidosis Is this a current diagnosis for this admission?: Yes (13) Subclinical hypothyroidism Is this a current diagnosis for this admission?: Yes (14) Anemia in chronic kidney disease (CKD) Qualifiers: Chronic kidney disease stage: on chronic dialysis Qualified Code(s): N18.6 - End stage renal disease; D63.1 - Anemia in chronic kidney disease; Z99.2 - Dependence on renal dialysis Is this a current diagnosis for this admission?: Yes - Time Time Spent with patient: 25-34 minutes Level of Care: IMCU Medications reviewed and adjusted accordingly: Yes Anticipated discharge: SNF Within: Other - Inpatient Certification Based on my medical assessment, after consideration of the patient's comorbidities, presenting symptoms, or acuity I expect that the services needed warrant INPATIENT care.: Yes I certify that my determination is in accordance with my understanding of Medicare's requirements for reasonable and necessary INPATIENT services [42 CFR 412.3e].: Yes Medical Necessity: Significant Comorbidiites Make Outpatient Treatment Too Risky, Need Close Monitoring Due to Risk of Patient Decompensation, Need For Continuous Telemetry Monitoring, Risk of Complication if Not Cared For in Hospital, Risk of Diagnosis Which Will Require Inpatient Eval/Care/Monitoring Post Hospital Care: D/C or Transfer Summary - Plan Summary Plan Summary: Continue current medication management. Review need for continued IV Lasix th rashel with chlorinator operator.
[2019-07-29] MEDS: CARVEDILOL 6.25 MG TABLET PO SCH ×2 (10:16→22:43)
[2019-07-29] MEDS: FUROSEMIDE 40 MG TABLET PO SCH ×2 (10:16→18:05)
[2019-07-29] MEDS: FERROUS SULFATE 325 MG TABLET PO SCH ×2 (10:17→22:43)
[2019-07-29] MEDS: MIDODRINE HCL 5 MG TABLET PO SCH ×3 (10:17→18:04)
[2019-07-29] MEDS: ASCORBIC ACID 500 MG TABLET PO SCH (10:17)
[2019-07-29] MEDS: ATORVASTATIN CALCIUM 40 MG TABLET PO SCH (22:44)
[2019-07-30] MEDS ORDERED: NORMAL SALINE 1000 ML 1,000 ML IV PRN (05:00)
[2019-07-30] MEDS ORDERED: HEPARIN SOD (PORCINE) 1,000 UNIT/ML 10 ML VIAL IV PRN (05:00)
[2019-07-30] MEDS: LEVOTHYROXINE SODIUM 0.025 MG TABLET PO SCH (06:18)
[2019-07-30] MEDS: HYDRALAZINE HCL 25 MG TABLET PO SCH ×3 (06:18→21:48)
[2019-07-30 06:27] LABS: ABSOLUTE EOSINOPHILS # (AUTO) 0.1 10^3/uL (0.0-0.6); ABSOLUTE LYMPHOCYTES (AUTO) 0.2 10^3/uL (0.5-4.7); ABSOLUTE MONOCYTES (AUTO) 0.5 10^3/uL (0.1-1.4); ABSOLUTE NEUT (AUTO) 3.3 10^3/uL (1.7-8.2); BASOPHILS % (AUTO) 0.5 % (0-2); EOSINOPHILS % (AUTO) 1.9 % (0-6); HEMATOCRIT 28.7 % (37.9-51.0); HEMOGLOBIN 9.4 g/dL (13.5-17.0); LYMPHOCYTES % (AUTO) 5.6 % (13-45); MEAN CORPUSCULAR HEMOGLOBIN 29.3 pg (27.0-33.4); MEAN CORPUSCULAR HGB CONC 32.8 g/dL (32.0-36.0); MEAN CORPUSCULAR VOLUME 90 fl (80-97); MONOCYTES % (AUTO) 13.1 % (3-13); PLATELET COUNT 203 10^3/uL (150-450); RED BLOOD COUNT 3.21 10^6/uL (4.35-5.55); RED CELL DISTRIBUTION WIDTH 16.8 % (11.5-14.0); SEGMENTED NEUTROPHILS % (AUTO) 78.9 % (42-78); TOTAL CELLS COUNTED % (AUTO) 100 %; WHITE BLOOD COUNT 4.2 10^3/uL (4.0-10.5)
[2019-07-30 06:43] LABS: ANION GAP 12 (5-19); BLOOD UREA NITROGEN 77 mg/dL (7-20); CALCIUM 10.1 mg/dL (8.4-10.2); CARBON DIOXIDE 27 mmol/L (22-30); CHLORIDE 98 mmol/L (98-107); GLUCOSE 104 mg/dL (75-110)
[2019-07-30] MEDS ORDERED: MAGNESIUM SULFATE/D5W 1 GM/100 ML RTUPB IV SCH (07:15)
[2019-07-30] MEDS: INSULIN LISPRO 100 UNIT/ML 3 ML VIAL SUBCUT SCH ×4 (08:52→21:50)
--- NOTE | 2019-07-30 09:24 | PDOC PROGRESS REPORT ---
Subjective Progress Note for:: 07/30/19 Subjective:: I am seeing the patient during dialysis this morning. He is much more awake and appears to be more coherent and responding to questions. He denies any complaints. He tells me that he is feeling better. He is tolerating dialysis very well. Reason For Visit: ACUTE ON CHRONIC CHF,CHRONIC A-FIB,DM TYPE 2,HTN,C Physical Exam Vital Signs: Temp Pulse Resp BP Pulse Ox 98.1 F 65 18 105/66 97 07/30/19 03:26 07/30/19 03:26 07/30/19 04:35 07/30/19 03:26 07/30/19 03:26 Intake & Output 07/29/19 07/30/19 07/31/19 06:59 06:59 06:59 Intake Total 1200 555 Output Total 2100 Balance -900 555 Weight 71.4 kg 76.4 kg Vitals during dialysis: Blood pressure 141/74, heart rate of 62, blood flow rate of 250 mL/min and dialysate flow rate of 600 mL/min. Exam: General appearance: PRESENT: no acute distress, cooperative, well-developed, well-nourished Head exam: PRESENT: atraumatic, normocephalic Eye exam: PRESENT: conjunctiva slightly pale, PERRLA. ABSENT: scleral icterus Neck exam: ABSENT: JVD Respiratory exam: PRESENT: Slightly diminished breath sounds. ABSENT: crackles, rales, rhonchi, unlabored, wheezes Cardiovascular exam: PRESENT: Regular rate rhythm -+S1, +S2. ABSENT: diastolic murmur, systolic murmur GI/Abdominal exam: PRESENT: normal bowel sounds, soft. ABSENT: guarding, mass, tenderness Extremities exam: Trace bilateral lower extremity pitting edema Neurological exam: PRESENT: alert, awake, oriented to person, place and time. Skin exam: PRESENT: dry, warm, Cardiovascular exam: PRESENT: irregular rhythm, +S1, +S2 GI/Abdominal exam: PRESENT: distended, soft. ABSENT: guarding, tenderness Results Laboratory Results: 07/30/19 06:10 07/30/19 06:10 07/30/19 07/30/19 06:10 06:10 WBC 4.2 RBC 3.21 L Hgb 9.4 L Hct 28.7 L MCV 90 MCH 29.3 MCHC 32.8 RDW 16.8 H Plt Count 203 Seg Neutrophils % 78.9 H Sodium 137.0 Potassium 4.0 Chloride 98 Carbon Dioxide 27 Anion Gap 12 BUN 77 H Creatinine 5.60 H Est GFR ( Amer) 12 L Glucose 104 Calcium 10.1 07/09/19 07/09/19 07/17/19 15:38 15:38 05:19 Creatine Kinase 33 L CK-MB (CK-2) 1.89 Troponin I 0.175 NT-Pro-B Natriuret Pep 53534 H 68299 H Impressions: Renal Ultrasound 07/12/19 00:00 IMPRESSION: 1. Increased echogenicity of the renal parenchyma and thinning of the renal cortices - clinical correlation for chronic medical renal disease is recommended. 2. No hydronephrosis. 3. Harris catheter within the urinary bladder. Chest Ultrasound 07/16/19 00:00 IMPRESSION: Small right pleural effusion. Guidance Fluoroscopy 07/28/19 00:00 IMPRESSION: IMAGE(S) OBTAINED DURING PROCEDURE. Chest X-Ray 07/28/19 15:17 IMPRESSION: No pneumothorax following right-sided central line placement as de scribed. Persistent bilateral airspace disease most likely edema. There are persistent bilateral pleural effusions. Assessment & Plan - Diagnosis (1) End stage renal disease on dialysis Is this a current diagnosis for this admission?: Yes Plan: Patient had progressive worsening of his chronic kidney disease and is now which end-stage renal disease that would require chronic hemodialysis treatments. Patient's urine output remains to be decreased despite IV Lasix. We will do dialysis today for 2.5 hours, using the patient's newly placed permacath, with 3 potassium bath, blood flow rate of 250 mL per minute, dialysate flow rate of 600 mL per minute, ultrafiltration 1 to 2 L as tolerated, no heparin and no Retacrit. Patient is closely monitored throughout dialysis treatment. Ultrafiltration will be adjusted accordingly per blood pressure. media planner to arrange outpatient dialysis close to the rehab facility where the patient is going. (2) Acute kidney injury superimposed on chronic kidney disease Is this a current diagnosis for this admission?: Yes Plan: Due to cardiorenal syndrome with a baseline hypertensive nephrosclerosis. Patient has not much response with IV furosemide no change to oral. As a stated above patient has now reached end-stage renal disease that would require chronic dialysis treatment. (3) Acute on chronic combined systolic (congestive) and diastolic (congestive) heart failure Is this a current diagnosis for this admission?: Yes Plan: Biventricular congestive heart failure with LVEF of 20 to 25% and moderately reduced right ventricular function. Patient has been on dobutamine drip with improvement was discontinued [address] Terrazas has seen the patient. (4) Acute respiratory acidosis Is this a current diagnosis for this admission?: Yes Plan: Patient has been off the AVAP/BiPAP for the last couple of days and so far has been tolerating nasal cannula. I think he has chronic CO2 retention and he has been living with it for a while. Management per primary care provider. (5) Anemia in chronic kidney disease (CKD) Qualifiers: Chronic kidney disease stage: on chronic dialysis Qualified Code(s): N18.6 - End stage renal disease; D63.1 - Anemia in chronic kidney disease; Z99.2 - Dependence on renal dialysis Is this a current diagnosis for this admission?: Yes Plan: We will give Retacrit as needed. Iron panel includes a ferritin of 214 and T sat of 22 which are adequate. (6) Hypercalcemia Is this a current diagnosis for this admission?: Yes Plan: Patient has chronic hypercalcemia secondary to primary/secondary hyperparathyroidism with known history of parathyroid adenoma on previous parathyroid scan. Calcium level now normal by adjusting calcium bath on dialysis. (7) Chronic kidney disease-mineral and bone disorder Is this a current diagnosis for this admission?: Yes Plan: His phosphorus is 4.9. PTH is 284 which is due to a combination of primary and secondary hyperparathyroidism in a patient with known parathyroid adenoma. Low phosphorus diet. (8) Pneumonia Is this a current diagnosis for this admission?: Yes Plan: Treated with 1 week of IV Zosyn. (9) Diabetes mellitus type 2 in obese Is this a current diagnosis for this admission?: Yes (10) Hypertension Qualifiers: Hypertension type: essential hypertension Qualified Code(s): I10 - Ess ential (primary) hypertension Is this a current diagnosis for this admission?: Yes Plan: Acceptable control. Continue midodrine to 5 mg 3 times a day. (11) Chronic a-fib Is this a current diagnosis for this admission?: Yes - Time Time with patient: 15-25 minutes
[2019-07-30] MEDS: CARVEDILOL 6.25 MG TABLET PO SCH ×2 (11:24→21:51)
[2019-07-30] MEDS: FUROSEMIDE 40 MG TABLET PO SCH ×2 (11:24→17:39)
[2019-07-30] MEDS: MIDODRINE HCL 5 MG TABLET PO SCH ×3 (11:24→17:40)
[2019-07-30] MEDS: FERROUS SULFATE 325 MG TABLET PO SCH ×2 (11:25→21:57)
[2019-07-30] MEDS: PANTOPRAZOLE SODIUM 40 MG TABLET.DR PO SCH (11:25)
[2019-07-30] MEDS: ASCORBIC ACID 500 MG TABLET PO SCH (11:25)
--- NOTE | 2019-07-30 21:19 | PDOC PROGRESS REPORT ---
Subjective Progress Note for:: 07/30/19 Subjective:: Patient seen by the bedside, he was dialyzed today, he has no new complaints Reason For Visit: ACUTE ON CHRONIC CHF,CHRONIC A-FIB,DM TYPE 2,HTN,C Physical Exam Vital Signs: Temp Pulse Resp BP Pulse Ox 97.6 F 46 L 16 93/54 L 100 07/30/19 20:00 07/30/19 20:00 07/30/19 20:00 07/30/19 20:00 07/30/19 20:00 Intake & Output 07/29/19 07/30/19 07/31/19 06:59 06:59 06:59 Intake Total 7811 548 8861 Output Total 2100 3000 Balance -900 555 -1240 Weight 71.4 kg 76.4 kg 76.4 kg General appearance: PRESENT: no acute distress Eye exam: PRESENT: PERRLA Respiratory exam: PRESENT: clear to auscultation amelia Cardiovascular exam: PRESENT: +S1, +S2 Murmur grade: 3 GI/Abdominal exam: PRESENT: soft Neurological exam: PRESENT: alert Results Laboratory Results: 07/30/19 06:10 07/30/19 06:10 07/30/19 07/30/19 06:10 06:10 WBC 4.2 RBC 3.21 L Hgb 9.4 L Hct 28.7 L MCV 90 MCH 29.3 MCHC 32.8 RDW 16.8 H Plt Count 203 Seg Neutrophils % 78.9 H Sodium 137.0 Potassium 4.0 Chloride 98 Carbon Dioxide 27 Anion Gap 12 BUN 77 H Creatinine 5.60 H Est GFR ( Amer) 12 L Glucose 104 Calcium 10.1 07/09/19 07/09/19 07/17/19 15:38 15:38 05:19 Creatine Kinase 33 L CK-MB (CK-2) 1.89 Troponin I 0.175 NT-Pro-B Natriuret Pep 58860 H 73150 H Impressions: Renal Ultrasound 07/12/19 00:00 IMPRESSION: 1. Increased echogenicity of the renal parenchyma and thinning of the renal cortices - clinical correlation for chronic medical renal disease is recommended. 2. No hydronephrosis. 3. Harris catheter within the urinary bladder. Chest Ultrasound 07/16/19 00:00 IMPRESSION: Small right pleural effusion. Guidance Fluoroscopy 07/28/19 00:00 IMPRESSION: IMAGE(S) OBTAINED DURING PROCEDURE. Chest X-Ray 07/28/19 15:17 IMPRESSION: No pneumothorax following right-sided central line placement as described. Persistent bilateral airspace disease most likely edema. There are persistent bilateral pleural effusions. Assessment & Plan - Diagnosis (1) Acute systolic (congestive) heart failure Is this a current diagnosis for this admission?: Yes (2) Diabetes mellitus type 2 with complications Is this a current diagnosis for this admission?: Yes (3) Chronic a-fib Is this a current diagnosis for this admission?: Yes (4) CKD (chronic kidney disease) stage 4, GFR 15-29 ml/min Is this a current diagnosis for this admission?: Yes - Time Time Spent with patient: 15-24 minutes Level of Care: IMCU - Plan Summary Plan Summary: Continue present treatment
[2019-07-30] MEDS: ATORVASTATIN CALCIUM 40 MG TABLET PO SCH (21:57)
[2019-07-31] MEDS: HYDRALAZINE HCL 25 MG TABLET PO SCH ×3 (06:07→21:27)
[2019-07-31] MEDS: LEVOTHYROXINE SODIUM 0.025 MG TABLET PO SCH (06:07)
[2019-07-31] MEDS: INSULIN LISPRO 100 UNIT/ML 3 ML VIAL SUBCUT SCH ×4 (08:09→22:05)
[2019-07-31] MEDS: PANTOPRAZOLE SODIUM 40 MG TABLET.DR PO SCH (08:47)
[2019-07-31] MEDS: ASCORBIC ACID 500 MG TABLET PO SCH (10:12)
[2019-07-31] MEDS: FERROUS SULFATE 325 MG TABLET PO SCH ×2 (10:12→21:32)
[2019-07-31] MEDS: FUROSEMIDE 40 MG TABLET PO SCH ×2 (10:12→17:47)
[2019-07-31] MEDS: MIDODRINE HCL 5 MG TABLET PO SCH ×3 (10:12→17:47)
[2019-07-31] MEDS: CARVEDILOL 6.25 MG TABLET PO SCH ×2 (10:17→21:32)
--- NOTE | 2019-07-31 17:01 | PDOC PROGRESS REPORT ---
Subjective Progress Note for:: 07/31/19 Subjective:: Patient seen by the bedside, he has decreased appetite Reason For Visit: ACUTE ON CHRONIC CHF,CHRONIC A-FIB,DM TYPE 2,HTN,C Physical Exam Vital Signs: Temp Pulse Resp BP Pulse Ox 97.8 F 54 L 14 111/61 99 07/31/19 16:03 07/31/19 16:03 07/31/19 16:03 07/31/19 16:03 07/31/19 16:03 Intake & Output 07/30/19 07/31/19 08/01/19 06:59 06:59 06:59 Intake Total 555 1910 Output Total 3000 Balance 555 -1090 Weight 76.4 kg 82.4 kg General appearance: PRESENT: no acute distress Eye exam: PRESENT: PERRLA Respiratory exam: PRESENT: clear to auscultation amelia Cardiovascular exam: PRESENT: +S1, +S2 Murmur grade: 3 GI/Abdominal exam: PRESENT: soft Neurological exam: PRESENT: alert Results Laboratory Results: 07/30/19 06:10 07/30/19 06:10 07/09/19 07/09/19 07/17/19 15:38 15:38 05:19 Creatine Kinase 33 L CK-MB (CK-2) 1.89 Troponin I 0.175 NT-Pro-B Natriuret Pep 58518 H 60301 H Impressions: Renal Ultrasound 07/12/19 00:00 IMPRESSION: 1. Increased echogenicity of the renal parenchyma and thinning of the renal cortices - clinical correlation for chronic medical renal disease is recommended. 2. No hydronephrosis. 3. Harris catheter within the urinary bladder. Chest Ultrasound 07/16/19 00:00 IMPRESSION: Small right pleural effusion. Guidance Fluoroscopy 07/28/19 00:00 IMPRESSION: IMAGE(S) OBTAINED DURING PROCEDURE. Chest X-Ray 07/28/19 15:17 IMPRESSION: No pneumothorax following right-sided central line placement as described. Persistent bilateral airspace disease most likely edema. There are persistent bilateral pleural effusions. Assessment & Plan - Diagnosis (1) Acute systolic (congestive) heart failure Is this a current diagnosis for this admission?: Yes (2) Diabetes mellitus type 2 with complications Is this a current diagnosis for this admission?: Yes (3) Chronic a-fib Is this a current diagnosis for this admission?: Yes (4) CKD (chronic kidney disease) stage 4, GFR 15-29 ml/min Is this a current diagnosis for this admission?: Yes - Time Time Spent with patient: 15-24 minutes Level of Care: IMCU
[2019-07-31] MEDS: ATORVASTATIN CALCIUM 40 MG TABLET PO SCH (21:32)
[2019-08-01] MEDS: LEVOTHYROXINE SODIUM 0.025 MG TABLET PO SCH (07:18)
[2019-08-01] MEDS: HYDRALAZINE HCL 25 MG TABLET PO SCH ×3 (07:43→23:11)
[2019-08-01] MEDS: INSULIN LISPRO 100 UNIT/ML 3 ML VIAL SUBCUT SCH ×4 (08:08→23:07)
[2019-08-01] MEDS: PANTOPRAZOLE SODIUM 40 MG TABLET.DR PO SCH (08:11)
[2019-08-01] MEDS: ASCORBIC ACID 500 MG TABLET PO SCH (09:21)
[2019-08-01] MEDS: CARVEDILOL 6.25 MG TABLET PO SCH ×2 (09:21→23:10)
[2019-08-01] MEDS: FUROSEMIDE 40 MG TABLET PO SCH ×2 (09:21→18:01)
[2019-08-01] MEDS: FERROUS SULFATE 325 MG TABLET PO SCH ×2 (09:21→23:10)
[2019-08-01] MEDS: MIDODRINE HCL 5 MG TABLET PO SCH ×3 (09:22→18:01)
--- NOTE | 2019-08-01 17:04 | PDOC PROGRESS REPORT ---
Subjective Progress Note for:: 08/01/19 Subjective:: Patient seen by the bedside, no new complaints Reason For Visit: ACUTE ON CHRONIC CHF,CHRONIC A-FIB,DM TYPE 2,HTN,C Physical Exam Vital Signs: Temp Pulse Resp BP Pulse Ox 97.7 F 66 24 H 90/50 L 100 08/01/19 16:47 08/01/19 16:47 08/01/19 16:47 08/01/19 16:47 08/01/19 16:47 Intake & Output 07/31/19 08/01/19 08/02/19 06:59 06:59 06:59 Intake Total 1910 440 237 Output Total 3000 Balance -1090 440 237 Weight 82.4 kg 78.8 kg General appearance: PRESENT: no acute distress Eye exam: PRESENT: PERRLA Respiratory exam: PRESENT: clear to auscultation amelia Cardiovascular exam: PRESENT: +S1, +S2 Murmur grade: 3 GI/Abdominal exam: PRESENT: soft Neurological exam: PRESENT: alert, CN II-XII grossly intact Results Laboratory Results: 07/30/19 06:10 07/30/19 06:10 07/09/19 07/09/19 07/17/19 15:38 15:38 05:19 Creatine Kinase 33 L CK-MB (CK-2) 1.89 Troponin I 0.175 NT-Pro-B Natriuret Pep 26159 H 37790 H Impressions: Renal Ultrasound 07/12/19 00:00 IMPRESSION: 1. Increased echogenicity of the renal parenchyma and thinning of the renal cortices - clinical correlation for chronic medical renal disease is recommended. 2. No hydronephrosis. 3. Harris catheter within the urinary bladder. Chest Ultrasound 07/16/19 00:00 IMPRESSION: Small right pleural effusion. Guidance Fluoroscopy 07/28/19 00:00 IMPRESSION: IMAGE(S) OBTAINED DURING PROCEDURE. Chest X-Ray 07/28/19 15:17 IMPRESSION: No pneumothorax following right-sided central line placement as described. Persistent bilateral airspace disease most likely edema. There are persistent bilateral pleural effusions. Assessment & Plan - Diagnosis (1) Acute systolic (congestive) heart failure Is this a current diagnosis for this admission?: Yes (2) Diabetes mellitus type 2 with complications Is this a current diagnosis for this admission?: Yes (3) Chronic a-fib Is this a current diagnosis for this admission?: Yes (4) CKD (chronic kidney disease) stage 4, GFR 15-29 ml/min Is this a current diagnosis for this admission?: Yes - Time Time Spent with patient: 15-24 minutes Level of Care: IMCU
[2019-08-01] MEDS: APIXABAN 2.5 MG TABLET PO SCH (18:01)
[2019-08-01] MEDS: ATORVASTATIN CALCIUM 40 MG TABLET PO SCH (23:10)
[2019-08-02] MEDS ORDERED: EPOETIN ALFA-EPBX 2,000 UNIT, EPOETIN ALFA-EPBX 3,000 UNIT in SYRINGE, DISPOSABLE, 1 EACH IV PRN (05:00)
[2019-08-02] MEDS ORDERED: HEPARIN SOD (PORCINE) 1,000 UNIT/ML 10 ML VIAL IV PRN (05:00)
[2019-08-02] MEDS ORDERED: NORMAL SALINE 1000 ML 1,000 ML IV PRN (05:00)
[2019-08-02 06:06] LABS: ABSOLUTE EOSINOPHILS # (AUTO) 0.1 10^3/uL (0.0-0.6); ABSOLUTE LYMPHOCYTES (AUTO) 0.3 10^3/uL (0.5-4.7); ABSOLUTE MONOCYTES (AUTO) 0.6 10^3/uL (0.1-1.4); ABSOLUTE NEUT (AUTO) 3.1 10^3/uL (1.7-8.2); BASOPHILS % (AUTO) 0.7 % (0-2); EOSINOPHILS % (AUTO) 2.3 % (0-6); HEMATOCRIT 29.8 % (37.9-51.0); HEMOGLOBIN 9.6 g/dL (13.5-17.0); LYMPHOCYTES % (AUTO) 6.7 % (13-45); MEAN CORPUSCULAR HEMOGLOBIN 29.3 pg (27.0-33.4); MEAN CORPUSCULAR HGB CONC 32.3 g/dL (32.0-36.0); MEAN CORPUSCULAR VOLUME 91 fl (80-97); MONOCYTES % (AUTO) 14.3 % (3-13); PLATELET COUNT 190 10^3/uL (150-450); RED BLOOD COUNT 3.28 10^6/uL (4.35-5.55); RED CELL DISTRIBUTION WIDTH 16.7 % (11.5-14.0); TOTAL CELLS COUNTED % (AUTO) 100 %
[2019-08-02 06:31] LABS: ANION GAP 10 (5-19); BLOOD UREA NITROGEN 70 mg/dL (7-20); CARBON DIOXIDE 28 mmol/L (22-30); CHLORIDE 97 mmol/L (98-107); GLUCOSE 89 mg/dL (75-110); POTASSIUM 3.8 mmol/L (3.6-5.0)
[2019-08-02] MEDS: LEVOTHYROXINE SODIUM 0.025 MG TABLET PO SCH (06:37)
[2019-08-02] MEDS: HYDRALAZINE HCL 25 MG TABLET PO SCH ×3 (06:52→21:12)
[2019-08-02] MEDS: INSULIN LISPRO 100 UNIT/ML 3 ML VIAL SUBCUT SCH ×4 (08:31→21:24)
--- NOTE | 2019-08-02 10:08 | PDOC PROGRESS REPORT ---
Subjective Progress Note for:: 08/02/19 - j Subjective:: I am seeing the patient during dialysis this morning. He is doing well and tolerating dialysis without any problems. He is communicating and answering questions appropriately. He denies any shortness of breath no pain anywhere. Reason For Visit: ACUTE ON CHRONIC CHF,CHRONIC A-FIB,DM TYPE 2,HTN,C Physical Exam Vital Signs: Temp Pulse Resp BP Pulse Ox 97.9 F 67 11 L 117/58 L 98 08/02/19 03:12 08/02/19 06:38 08/02/19 04:44 08/02/19 03:12 08/02/19 04:44 Intake & Output 08/01/19 08/02/19 08/03/19 06:59 06:59 06:59 Intake Total 440 352 Balance 440 352 Weight 78.8 kg 79.7 kg Vitals during dialysis: Blood pressure 124/60, heart rate of 72, blood flow rate of 250 mL/min and dialysate flow rate of 600 mL/min. Exam: General appearance: PRESENT: no acute distress, cooperative, well-developed, well-nourished Head exam: PRESENT: atraumatic, normocephalic Eye exam: PRESENT: conjunctiva slightly pale, PERRLA. ABSENT: scleral icterus Neck exam: ABSENT: JVD Respiratory exam: PRESENT: Diminished breath sounds. ABSENT: crackles, rales, rhonchi, unlabored, wheezes Cardiovascular exam: PRESENT: Regular rate rhythm -+S1, +S2. ABSENT: diastolic murmur, systolic murmur GI/Abdominal exam: PRESENT: normal bowel sounds, soft. ABSENT: guarding, mass, tenderness Extremities exam: ABSENT: No edema Neurological exam: PRESENT: alert, awake, oriented to person, place and time. Skin exam: PRESENT: dry, warm, Cardiovascular exam: PRESENT: irregular rhythm, +S1, +S2 GI/Abdominal exam: PRESENT: distended, soft. ABSENT: guarding, tenderness Results Laboratory Results: 08/02/19 05:17 08/02/19 05:17 08/02/19 08/02/19 05:17 05:17 WBC 4.0 RBC 3.28 L Hgb 9.6 L Hct 29.8 L MCV 91 MCH 29.3 MCHC 32.3 RDW 16.7 H Plt Count 190 Seg Neutrophils % 76.0 Sodium 135.3 L Potassium 3.8 Chloride 97 L Carbon Dioxide 28 Anion Gap 10 BUN 70 H Creatinine 6.44 H Est GFR ( Amer) 10 L Glucose 89 Calcium 10.0 07/09/19 07/09/19 07/17/19 15:38 15:38 05:19 Creatine Kinase 33 L CK-MB (CK-2) 1.89 Troponin I 0.175 NT-Pro-B Natriuret Pep 43401 H 18904 H Impressions: Renal Ultrasound 07/12/19 00:00 IMPRESSION: 1. Increased echogenicity of the renal parenchyma and thinning of the renal cortices - clinical correlation for chronic medical renal disease is recommended. 2. No hydronephrosis. 3. Harris catheter within the urinary bladder. Chest Ultrasound 07/16/19 00:00 IMPRESSION: Small right pleural effusion. Guidance Fluoroscopy 07/28/19 00:00 IMPRESSION: IMAGE(S) OBTAINED DURING PROCEDURE. Chest X-Ray 07/28/19 15:17 IMPRESSION: No pneumothorax following right-sided central line placement as described. Persistent bilateral airspace disease most likely edema. There are persistent bilateral pleural effusions. Assessment & Plan - Diagnosis (1) End stage renal disease on dialysis Is this a current diagnosis for this admission?: Yes Plan: Patient had progressive worsening of his chronic kidney disease and is now which end-stage renal disease that would require chronic hemodialysis treatments. Patient's urine output remains to be decreased. We will do dialysis today for 3.0 hours, using the patient's newly placed permacath, with 3 potassium bath, blood flow rate of 250 mL per minute, dialysate flow rate of 600 mL per minute, ultrafiltration 1 to 1.5 L as tolerated, no heparin and Retacrit 5000 units to be given IV during dialysis. Patient is closely monitored throughout dialysis treatment. Ultrafiltration will be adjusted accordingly per blood pressure. marketing planner to arrange outpatient dialysis close to the rehab facility where the patient is going. (2) Acute kidney injury superimposed on chronic kidney disease Is this a current diagnosis for this admission?: Yes Plan: Due to cardiorenal syndrome with a baseline hypertensive nephrosclerosis. Patie nt has not much response with IV furosemide, now change to oral. As a stated above patient has now reached end-stage renal disease that would require chronic dialysis treatment. (3) Acute on chronic combined systolic (congestive) and diastolic (congestive) heart failure Is this a current diagnosis for this admission?: Yes Plan: Biventricular congestive heart failure with LVEF of 20 to 25% and moderately reduced right ventricular function. Patient has been on dobutamine drip with improvement but has been discontinued for over a week now. Dr. Terrazas has seen the patient. (4) Acute respiratory acidosis Is this a current diagnosis for this admission?: Yes Plan: Patient had been off the AVAP/BiPAP for the last couple of days and so far has been tolerating nasal cannula. I think he has chronic CO2 retention and he has been living with it for a while. Management per primary care provider. (5) Anemia in chronic kidney disease (CKD) Qualifiers: Chronic kidney disease stage: on chronic dialysis Qualified Code(s): N18.6 - End stage renal disease; D63.1 - Anemia in chronic kidney disease; Z99.2 - Dependence on renal dialysis Is this a current diagnosis for this admission?: Yes Plan: We will give Retacrit as needed. Iron panel includes a ferritin of 214 and T sat of 22 which are adequate. (6) Hypercalcemia Is this a current diagnosis for this admission?: Yes Plan: Patient has chronic hypercalcemia secondary to primary/secondary hyperparathyroidism with known history of parathyroid adenoma on previous parathyroid scan. Calcium level now normal by adjusting calcium bath on dialysis. (7) Chronic kidney disease-mineral and bone disorder Is this a current diagnosis for this admission?: Yes Plan: His phosphorus is 4.9. PTH is 284 which is due to a combination of primary and secondary hyperparathyroidism in a patient with known parathyroid adenoma. Low phosphorus diet. (8) Pneumonia Is this a current diagnosis for this admission?: Yes Plan: Treated with 1 week of IV Zosyn. (9) Diabetes mellitus type 2 in obese Is this a current diagnosis for this admission?: Yes (10) Hypertension Qualifiers: Hypertension type: essential hypertension Qualified Code(s): I10 - Essential (primary) hypertension Is this a current diagnosis for this admission?: Yes Plan: Acceptable control. Continue midodrine to 5 mg 3 times a day. (11) Chronic a-fib Is this a current diagnosis for this admission?: Yes - Notes Notes: Patient is currently being arranged for rehab placement and outpatient dialysis by planner/scheduler. - Time Time with patient: 15-25 minutes
[2019-08-02] MEDS: CARVEDILOL 6.25 MG TABLET PO SCH ×2 (10:29→21:12)
[2019-08-02] MEDS: PANTOPRAZOLE SODIUM 40 MG TABLET.DR PO SCH (10:29)
[2019-08-02] MEDS: APIXABAN 2.5 MG TABLET PO SCH ×2 (10:30→17:09)
[2019-08-02] MEDS: ASCORBIC ACID 500 MG TABLET PO SCH (10:30)
[2019-08-02] MEDS: FERROUS SULFATE 325 MG TABLET PO SCH ×2 (10:30→21:13)
[2019-08-02] MEDS: MIDODRINE HCL 5 MG TABLET PO SCH ×3 (10:30→17:09)
[2019-08-02] MEDS: FUROSEMIDE 40 MG TABLET PO SCH ×2 (10:30→17:09)
--- NOTE | 2019-08-02 15:56 | PDOC PROGRESS REPORT ---
Subjective Progress Note for:: 08/02/19 Subjective:: Patient seen by the bedside, overall poor condition with multiple organ failure now on hemodialysis chronically deconditioned, he was dialyzed today, plan is to transfer to rehab on discharge probably sometime this week Reason For Visit: ACUTE ON CHRONIC CHF,CHRONIC A-FIB,DM TYPE 2,HTN,C Physical Exam Vital Signs: Temp Pulse Resp BP Pulse Ox 97.7 F 70 17 96/76 L 100 08/02/19 11:51 08/02/19 14:00 08/02/19 11:51 08/02/19 11:51 08/02/19 11:51 Intake & Output 08/01/19 08/02/19 08/03/19 06:59 06:59 06:59 Intake Total 440 352 237 Output Total 1400 Balance 440 352 -1163 Weight 78.8 kg 79.7 kg 79.7 kg General appearance: PRESENT: no acute distress Eye exam: PRESENT: PERRLA Respiratory exam: PRESENT: clear to auscultation amelia Cardiovascular exam: PRESENT: +S1, +S2 Murmur grade: 3 GI/Abdominal exam: PRESENT: soft Results Laboratory Results: 08/02/19 05:17 08/02/19 05:17 08/02/19 08/02/19 05:17 05:17 WBC 4.0 RBC 3.28 L Hgb 9.6 L Hct 29.8 L MCV 91 MCH 29.3 MCHC 32.3 RDW 16.7 H Plt Count 190 Seg Neutrophils % 76.0 Sodium 135.3 L Potassium 3.8 Chloride 97 L Carbon Dioxide 28 Anion Gap 10 BUN 70 H Creatinine 6.44 H Est GFR ( Amer) 10 L Glucose 89 Calcium 10.0 07/09/19 07/09/19 07/17/19 15:38 15:38 05:19 Creatine Kinase 33 L CK-MB (CK-2) 1.89 Troponin I 0.175 NT-Pro-B Natriuret Pep 88481 H 14814 H Impressions: Renal Ultrasound 07/12/19 00:00 IMPRESSION: 1. Increased echogenicity of the renal parenchyma and thinning of the renal cortices - clinical correlation for chronic medical renal disease is recommended. 2. No hydronephrosis. 3. Harris catheter within the urinary bladder. Chest Ultrasound 07/16/19 00:00 IMPRESSION: Small right pleural effusion. Guidance Fluoroscopy 07/28/19 00:00 IMPRESSION: IMAGE(S) OBTAINED DURING PROCEDURE. Chest X-Ray 07/28/19 15:17 IMPRESSION: No pneumothorax following right-sided central line placement as described. Persistent bilateral airspace disease most likely edema. There are persistent bilateral pleural effusions. Assessment & Plan - Diagnosis (1) Acute systolic (congestive) heart failure Is this a current diagnosis for this admission?: Yes (2) Diabetes mellitus type 2 with complications Is this a current diagnosis for this admission?: Yes (3) Chronic a-fib Is this a current diagnosis for this admission?: Yes (4) CKD (chronic kidney disease) stage 4, GFR 15-29 ml/min Is this a current diagnosis for this admission?: Yes (5) End-stage renal disease Is this a current diagnosis for this admission?: Yes - Time Time Spent with patient: 15-24 minutes Level of Care: IMCU
[2019-08-02] MEDS: ATORVASTATIN CALCIUM 40 MG TABLET PO SCH (21:13)
[2019-08-03] MEDS: HYDRALAZINE HCL 25 MG TABLET PO SCH ×3 (05:38→22:21)
[2019-08-03] MEDS: LEVOTHYROXINE SODIUM 0.025 MG TABLET PO SCH (05:38)
[2019-08-03] MEDS: INSULIN LISPRO 100 UNIT/ML 3 ML VIAL SUBCUT SCH ×3 (08:09→16:33)
[2019-08-03] MEDS: APIXABAN 2.5 MG TABLET PO SCH ×2 (09:01→17:12)
[2019-08-03] MEDS: FUROSEMIDE 40 MG TABLET PO SCH ×2 (09:01→17:12)
[2019-08-03] MEDS: MIDODRINE HCL 5 MG TABLET PO SCH ×3 (09:01→17:11)
[2019-08-03] MEDS: CARVEDILOL 6.25 MG TABLET PO SCH ×2 (09:02→22:22)
[2019-08-03] MEDS: FERROUS SULFATE 325 MG TABLET PO SCH ×2 (09:02→22:29)
[2019-08-03] MEDS: PANTOPRAZOLE SODIUM 40 MG TABLET.DR PO SCH (09:02)
[2019-08-03] MEDS: ASCORBIC ACID 500 MG TABLET PO SCH (09:02)
--- NOTE | 2019-08-03 11:55 | PDOC PROGRESS REPORT ---
Subjective Progress Note for:: 08/03/19 Subjective:: Patient was seen laying in his bed at the time of examination. He appears to still have moments of some confusion, which looks to be baseline. Currently awaiting placement at [facility] from what I was told. Discharge planning was already contacted for arranging dialysis as outpatient. Patient denies chest pain, worsening SOB, n/v/d/c. Reason For Visit: ACUTE ON CHRONIC CHF,CHRONIC A-FIB,DM TYPE 2,HTN,C Physical Exam Vital Signs: Temp Pulse Resp BP Pulse Ox 98.2 F 57 L 18 116/61 96 08/03/19 03:59 08/03/19 06:49 08/03/19 04:50 08/03/19 03:59 08/03/19 09:31 Intake & Output 08/02/19 08/03/19 08/04/19 06:59 06:59 06:59 Intake Total 352 829 Output Total 1400 Balance 352 -571 Weight 79.7 kg 79.7 kg Cardiovascular exam: PRESENT: irregular rhythm, +S1, +S2 GI/Abdominal exam: PRESENT: distended, soft. ABSENT: guarding, tenderness Results Laboratory Results: 08/02/19 05:17 08/02/19 05:17 07/09/19 07/09/19 07/17/19 15:38 15:38 05:19 Creatine Kinase 33 L CK-MB (CK-2) 1.89 Troponin I 0.175 NT-Pro-B Natriuret Pep 74869 H 33329 H Impressions: Renal Ultrasound 07/12/19 00:00 IMPRESSION: 1. Increased echogenicity of the renal parenchyma and thinning of the renal cortices - clinical correlation for chronic medical renal disease is recommended. 2. No hydronephrosis. 3. Harris catheter within the urinary bladder. Chest Ultrasound 07/16/19 00:00 IMPRESSION: Small right pleural effusion. Guidance Fluoroscopy 07/28/19 00:00 IMPRESSION: IMAGE(S) OBTAINED DURING PROCEDURE. Chest X-Ray 07/28/19 15:17 IMPRESSION: No pneumothorax following right-sided central line placement as described. Persistent bilateral airspace disease most likely edema. There are persistent bilateral pleural effusions. Assessment & Plan - Diagnosis (1) End stage renal disease on dialysis Is this a current diagnosis for this admission?: Yes Plan: will look to continue with arranging for outpatient dialysis. Currently stable today. (2) Anemia in chronic kidney disease (CKD) Qualifiers: Chronic kidney disease stage: on chronic dialysis Qualified Code(s): N18.6 - End stage renal disease; D63.1 - Anemia in chronic kidney disease; Z99.2 - Dependence on renal dialysis Is this a current diagnosis for this admission?: Yes Plan: retacrit as needed with treatment. (3) Hypotension Plan: on midodrine 5mg PO TID (4) Hypercapnia Plan: looks to be chronic (5) Acute respiratory acidosis Is this a current diagnosis for this admission?: Yes Plan: looks to be chronic (6) Acute systolic (congestive) heart failure Is this a current diagnosis for this admission?: Yes Plan: stable (7) AMS (altered mental status) Is this a current diagnosis for this admission?: Yes Plan: due to hypercapnia (8) Diabetes mellitus type 2 with complications Is this a current diagnosis for this admission?: Yes Plan: controlled (9) Pleural effusion Plan: Was found to not be large enough to tap. (10) Hyperkalemia Plan: stable (11) Hypercalcemia Is this a current diagnosis for this admission?: Yes Plan: stable (12) Pneumonia Is this a current diagnosis for this admission?: Yes Plan: previously treated with pip/tazo
--- NOTE | 2019-08-03 12:33 | PDOC PROGRESS REPORT ---
Subjective Progress Note for:: 08/03/19 Subjective:: Patient seen and examined. Not in any distress. On noninvasive positive pressure ventilation Reason For Visit: ACUTE ON CHRONIC CHF,CHRONIC A-FIB,DM TYPE 2,HTN,C Physical Exam Vital Signs: Temp Pulse Resp BP Pulse Ox 98.2 F 57 L 18 116/61 96 08/03/19 03:59 08/03/19 06:49 08/03/19 04:50 08/03/19 03:59 08/03/19 09:31 Intake & Output 08/02/19 08/03/19 08/04/19 06:59 06:59 06:59 Intake Total 352 829 Output Total 1400 Balance 352 -571 Weight 79.7 kg 79.7 kg General appearance: PRESENT: well-developed, well-nourished Head exam: PRESENT: atraumatic Respiratory exam: PRESENT: symmetrical Cardiovascular exam: PRESENT: irregular rhythm, +S1, +S2 Results Laboratory Results: 08/02/19 05:17 08/02/19 05:17 07/09/19 07/09/19 07/17/19 15:38 15:38 05:19 Creatine Kinase 33 L CK-MB (CK-2) 1.89 Troponin I 0.175 NT-Pro-B Natriuret Pep 19732 H 13854 H Impressions: Renal Ultrasound 07/12/19 00:00 IMPRESSION: 1. Increased echogenicity of the renal parenchyma and thinning of the renal cortices - clinical correlation for chronic medical renal disease is recommended. 2. No hydronephrosis. 3. Harris catheter within the urinary bladder. Chest Ultrasound 07/16/19 00:00 IMPRESSION: Small right pleural effusion. Guidance Fluoroscopy 07/28/19 00:00 IMPRESSION: IMAGE(S) OBTAINED DURING PROCEDURE. Chest X-Ray 07/28/19 15:17 IMPRESSION: No pneumothorax following right-sided central line placement as described. Persistent bilateral airspace disease most likely edema. There are persistent bilateral pleural effusions. Assessment & Plan - Diagnosis (1) Hypertension Qualifiers: Hypertension type: essential hypertension Qualified Code(s): I10 - Essential (primary) hypertension Is this a current diagnosis for this admission?: Yes Plan: Continue to watch blood pressure LV systolic dysfunction. Have to avoid hypotension (2) Chronic a-fib Is this a current diagnosis for this admission?: Yes Plan: Rate controlled. Asymptomatic Continue present therapy Systemic anticoagulation with apixaban. (3) CHF (congestive heart failure) Qualifiers: Heart failure type: combined systolic and diastolic Heart failure chronicity: acute on chronic Qualified Code(s): I50.43 - Acute on chronic combined systolic (congestive) and diastolic (congestive) heart failure Is this a current diagnosis for this admission?: Yes Plan: has improved overall. Especially with institution of renal replacement therapy. (4) ICD (implantable cardioverter-defibrillator) in place Is this a current diagnosis for this admission?: Yes Plan: ICD in place
--- NOTE | 2019-08-03 22:25 | PDOC PROGRESS REPORT ---
Subjective Progress Note for:: 08/03/19 Subjective:: Patient seen by the bedside, overall poor condition with multiple organ failure now on hemodialysis chronically deconditioned, he was dialyzed yesterday , plan is to transfer to rehab on discharge probably sometime this week Reason For Visit: ACUTE ON CHRONIC CHF,CHRONIC A-FIB,DM TYPE 2,HTN,C Physical Exam Vital Signs: Temp Pulse Resp BP Pulse Ox 97.8 F 61 16 108/64 100 08/03/19 20:34 08/03/19 20:34 08/03/19 20:34 08/03/19 20:34 08/03/19 20:34 Intake & Output 08/02/19 08/03/19 08/04/19 06:59 06:59 06:59 Intake Total 352 829 480 Output Total 1400 Balance 352 -571 480 Weight 79.7 kg 79.7 kg General appearance: PRESENT: no acute distress Eye exam: PRESENT: PERRLA Respiratory exam: PRESENT: clear to auscultation amelia Cardiovascular exam: PRESENT: +S1, +S2 Murmur grade: 3 GI/Abdominal exam: PRESENT: soft Results Laboratory Results: 08/02/19 05:17 08/02/19 05:17 07/09/19 07/09/19 07/17/19 15:38 15:38 05:19 Creatine Kinase 33 L CK-MB (CK-2) 1.89 Troponin I 0.175 NT-Pro-B Natriuret Pep 21323 H 96776 H Impressions: Renal Ultrasound 07/12/19 00:00 IMPRESSION: 1. Increased echogenicity of the renal parenchyma and thinning of the renal cortices - clinical correlation for chronic medical renal disease is recommended. 2. No hydronephrosis. 3. Harris catheter within the urinary bladder. Chest Ultrasound 07/16/19 00:00 IMPRESSION: Small right pleural effusion. Guidance Fluoroscopy 07/28/19 00:00 IMPRESSION: IMAGE(S) OBTAINED DURING PROCEDURE. Chest X-Ray 07/28/19 15:17 IMPRESSION: No pneumothorax following right-sided central line placement as described. Persistent bilateral airspace disease most likely edema. There are persistent bilateral pleural effusions. Assessment & Plan - Diagnosis (1) Acute systolic (congestive) heart failure Is this a current diagnosis for this admission?: Yes Plan: Continue treatment (2) Diabetes mellitus type 2 with complications Is this a current diagnosis for this admission?: Yes Plan: Continue present treatment (3) Chronic a-fib Is this a current diagnosis for this admission?: Yes (4) CKD (chronic kidney disease) stage 4, GFR 15-29 ml/min Is this a current diagnosis for this admission?: Yes Plan: Continue treatment (5) End-stage renal disease Is this a current diagnosis for this admission?: Yes - Time Time Spent with patient: 25-34 minutes Level of Care: IMCU
[2019-08-03] MEDS: ATORVASTATIN CALCIUM 40 MG TABLET PO SCH (22:29)
[2019-08-04] MEDS: INSULIN LISPRO 100 UNIT/ML 3 ML VIAL SUBCUT SCH ×5 (02:04→22:02)
[2019-08-04] MEDS ORDERED: EPOETIN ALFA-EPBX 10,000 UNIT in SYRINGE, DISPOSABLE, 1 EACH IV PRN (05:00)
[2019-08-04] MEDS: HYDRALAZINE HCL 25 MG TABLET PO SCH ×3 (05:29→21:59)
[2019-08-04] MEDS: LEVOTHYROXINE SODIUM 0.025 MG TABLET PO SCH (05:30)
[2019-08-04 05:41] LABS: HEMATOCRIT 29.9 % (37.9-51.0); HEMOGLOBIN 9.7 g/dL (13.5-17.0); MEAN CORPUSCULAR HEMOGLOBIN 29.3 pg (27.0-33.4); MEAN CORPUSCULAR HGB CONC 32.3 g/dL (32.0-36.0); MEAN CORPUSCULAR VOLUME 91 fl (80-97); PLATELET COUNT 185 10^3/uL (150-450); RED CELL DISTRIBUTION WIDTH 16.7 % (11.5-14.0)
[2019-08-04 06:07] LABS: ANION GAP 10 (5-19); BLOOD UREA NITROGEN 56 mg/dL (7-20); CALCIUM 10.1 mg/dL (8.4-10.2); CARBON DIOXIDE 30 mmol/L (22-30); CHLORIDE 94 mmol/L (98-107); GLUCOSE 88 mg/dL (75-110); POTASSIUM 4.1 mmol/L (3.6-5.0)
[2019-08-04] MEDS ORDERED: HEPARIN SOD (PORCINE) 1,000 UNIT/ML 10 ML VIAL IV PRN (07:38)
[2019-08-04] MEDS: PANTOPRAZOLE SODIUM 40 MG TABLET.DR PO SCH (08:58)
[2019-08-04] MEDS: CARVEDILOL 6.25 MG TABLET PO SCH ×2 (10:41→22:00)
[2019-08-04] MEDS: FUROSEMIDE 40 MG TABLET PO SCH ×2 (10:41→17:39)
[2019-08-04] MEDS: FERROUS SULFATE 325 MG TABLET PO SCH ×2 (11:08→21:59)
[2019-08-04] MEDS: APIXABAN 2.5 MG TABLET PO SCH ×2 (11:09→17:39)
[2019-08-04] MEDS: MIDODRINE HCL 5 MG TABLET PO SCH ×3 (11:09→17:39)
[2019-08-04] MEDS: ASCORBIC ACID 500 MG TABLET PO SCH (11:09)
--- NOTE | 2019-08-04 11:33 | PDOC PROGRESS REPORT ---
Subjective Reason For Visit: Patient seen today on dialysis. He is undergoing dialysis without any issues. He denies any history of chest pain or shortness of breath. Labs and medications were reviewed. Dialysis orders were reviewed with the treating dialysis nurse. His background history is the fact that the patient had progressive worsening of his chronic kidney disease in the background of hypertensive nephrosclerosis and worsening cardiorenal syndrome and is now which end-stage renal disease that would require chronic hemodialysis treatments. Patient's urine output remains to be decreased. Physical Exam Vital Signs: Temp Pulse Resp BP Pulse Ox 98.1 F 86 18 101/63 98 08/04/19 03:43 08/04/19 07:00 08/04/19 03:43 08/04/19 03:43 08/04/19 03:43 Intake & Output 08/03/19 08/04/19 08/05/19 06:59 06:59 06:59 Intake Total 829 700 Output Total 1400 Balance -571 700 Weight 79.7 kg 80.1 kg General appearance: PRESENT: no acute distress Respiratory exam: PRESENT: clear to auscultation amelia, decreased breath sounds. ABSENT: crackles Cardiovascular exam: PRESENT: irregular rhythm, +S1, +S2 GI/Abdominal exam: PRESENT: distended, normal bowel sounds, soft. ABSENT: guarding, organomegaly, tenderness Extremities exam: PRESENT: pedal edema Neurological exam: PRESENT: alert, awake, oriented to person, oriented to place Psychiatric exam: PRESENT: appropriate affect Results Laboratory Results: 08/04/19 05:03 08/04/19 05:03 08/04/19 08/04/19 05:03 05:03 WBC 5.0 RBC 3.30 L Hgb 9.7 L Hct 29.9 L MCV 91 MCH 29.3 MCHC 32.3 RDW 16.7 H Plt Count 185 Sodium 133.6 L Potassium 4.1 Chloride 94 L Carbon Dioxide 30 Anion Gap 10 BUN 56 H Creatinine 5.94 H Est GFR ( Amer) 11 L Glucose 88 Calcium 10.1 07/09/19 07/09/19 07/17/19 15:38 15:38 05:19 Creatine Kinase 33 L CK-MB (CK-2) 1.89 Troponin I 0.175 NT-Pro-B Natriuret Pep 16370 H 31687 H Impressions: Renal Ultrasound 07/12/19 00:00 IMPRESSION: 1. Increased echogenicity of the renal parenchyma and thinning of the renal cortices - clinical correlation for chronic medical renal disease is recommended. 2. No hydronephrosis. 3. Harris catheter within the urinary bladder. Chest Ultrasound 07/16/19 00:00 IMPRESSION: Small right pleural effusion. Guidance Fluoroscopy 07/28/19 00:00 IMPRESSION: IMAGE(S) OBTAINED DURING PROCEDURE. Chest X-Ray 07/28/19 15:17 IMPRESSION: No pneumothorax following right-sided central line placement as described. Persistent bilateral airspace disease most likely edema. There are persistent bilateral pleural effusions. Assessment & Plan - Diagnosis (1) Acute kidney injury superimposed on chronic kidney disease Is this a current diagnosis for this admission?: Yes Plan: Patient has now reached ESRD and currently has started on hemodialysis. Cu rrently being dialyzed and being supervised.Plan to remove between 1-2 L as tolerated. Dialysis orders were reviewed with the treating dialysis nurse. (2) End stage renal disease on dialysis Is this a current diagnosis for this admission?: Yes Plan: As mentioned earlier. Plan for outpatient dialysis on discharge.Discharge plan ner is making appropriate arrangements. (3) Diabetes mellitus type 2 in obese Is this a current diagnosis for this admission?: Yes Plan: As per Dr. Yeboah. (4) Acute on chronic combined systolic (congestive) and diastolic (congestive) heart failure Is this a current diagnosis for this admission?: Yes Plan: Being followed closely by insole bottom filler. Currently compensated. (5) Hypercalcemia Is this a current diagnosis for this admission?: Yes Plan: Currently stable. Monitor. (6) Anemia in chronic kidney disease (CKD) Qualifiers: Chronic kidney disease stage: on chronic dialysis Qualified Code(s): N18.6 - End stage renal disease; D63.1 - Anemia in chronic kidney disease; Z99.2 - Dependence on renal dialysis Is this a current diagnosis for this admission?: Yes Plan: Adjust erythropoietin.
--- NOTE | 2019-08-04 12:12 | PDOC PROGRESS REPORT ---
Subjective Progress Note for:: 08/04/19 Subjective:: Patient seen and examined. He appears to be somnolent. No distress is noted. Reason For Visit: ACUTE ON CHRONIC CHF,CHRONIC A-FIB,DM TYPE 2,HTN,C Physical Exam Vital Signs: Temp Pulse Resp BP Pulse Ox 98.1 F 86 18 101/63 98 08/04/19 03:43 08/04/19 07:00 08/04/19 03:43 08/04/19 03:43 08/04/19 03:43 Intake & Output 08/03/19 08/04/19 08/05/19 06:59 06:59 06:59 Intake Total 940 099 9955 Output Total 1400 2000 Balance -571 700 -778 Weight 79.7 kg 80.1 kg General appearance: PRESENT: no acute distress, obese, well-developed, well- nourished Eye exam: PRESENT: conjunctiva pink Respiratory exam: PRESENT: symmetrical, unlabored Cardiovascular exam: PRESENT: irregular rhythm, +S1, +S2, other Pulses: PRESENT: normal radial pulses - Left upper chest wall dialysis catheter GI/Abdominal exam: PRESENT: soft Rectal exam: PRESENT: deferred Skin exam: PRESENT: dry, intact Results Laboratory Results: 08/04/19 05:03 08/04/19 05:03 08/04/19 08/04/19 05:03 05:03 WBC 5.0 RBC 3.30 L Hgb 9.7 L Hct 29.9 L MCV 91 MCH 29.3 MCHC 32.3 RDW 16.7 H Plt Count 185 Sodium 133.6 L Potassium 4.1 Chloride 94 L Carbon Dioxide 30 Anion Gap 10 BUN 56 H Creatinine 5.94 H Est GFR ( Amer) 11 L Glucose 88 Calcium 10.1 07/09/19 07/09/19 07/17/19 15:38 15:38 05:19 Creatine Kinase 33 L CK-MB (CK-2) 1.89 Troponin I 0.175 NT-Pro-B Natriuret Pep 88041 H 16507 H Impressions: Renal Ultrasound 07/12/19 00:00 IMPRESSION: 1. Increased echogenicity of the renal parenchyma and thinning of the renal cortices - clinical correlation for chronic medical renal disease is recommended. 2. No hydronephrosis. 3. Harris catheter within the urinary bladder. Chest Ultrasound 07/16/19 00:00 IMPRESSION: Small right pleural effusion. Guidance Fluoroscopy 07/28/19 00:00 IMPRESSION: IMAGE(S) OBTAINED DURING PROCEDURE. Chest X-Ray 07/28/19 15:17 IMPRESSION: No pneumothorax following right-sided central line placement as described. Persistent bilateral airspace disease most likely edema. There are persistent bilateral pleural effusions. Assessment & Plan - Diagnosis (1) Hypertension Qualifiers: Hypertension type: essential hypertension Qualified Code(s): I10 - Essential (primary) hypertension Is this a current diagnosis for this admission?: Yes Plan: Continue to watch blood pressure LV systolic dysfunction. Have to avoid hypotension (2) Chronic a-fib Is this a current diagnosis for this admission?: Yes Plan: Rate controlled. Asymptomatic Continue present therapy Systemic anticoagulation with apixaban. (3) CHF (congestive heart failure) Qualifiers: Heart failure type: combined systolic and diastolic Heart failure chronicity: acute on chronic Qualified Code(s): I50.43 - Acute on chronic combined systolic (congestive) and diastolic (congestive) heart failure Is this a current diagnosis for this admission?: Yes Plan: has improved overall. Especially with institution of renal replacement therapy. (4) ICD (implantable cardioverter-defibrillator) in place Is this a current diagnosis for this admission?: Yes - Notes Notes: Severe dilated cardiomyopathy with cardiorenal syndrome Responded to trial of inotrope. Now being maintained on hemodialysis. Discharge planning
--- NOTE | 2019-08-04 21:15 | PDOC PROGRESS REPORT ---
Subjective Progress Note for:: 08/04/19 Subjective:: Patient is s/p hemodialysis today. He denied any chest pain or difficulty with breathing. No reported fever or chills. No nausea, vomiting, or abdominal pain. PO intake remain poor and not a fan of the oral Nephro supplement. Reason For Visit: ACUTE ON CHRONIC CHF,CHRONIC A-FIB,DM TYPE 2,HTN,C Physical Exam Vital Signs: Temp Pulse Resp BP Pulse Ox 97.8 F 59 L 20 111/62 95 08/04/19 15:04 08/04/19 15:04 08/04/19 15:04 08/04/19 15:04 08/04/19 16:07 Intake & Output 08/03/19 08/04/19 08/05/19 06:59 06:59 06:59 Intake Total 695 450 8067 Output Total 1400 2000 Balance -571 700 -778 Weight 79.7 kg 80.1 kg Physical Exam: General appearance: PRESENT: mild distress on supplemental oxygen via nasal cannula support Head exam: PRESENT: atraumatic, normocephalic Eye exam: PRESENT: conjunctiva pink. ABSENT: pallor, scleral icterus Respiratory exam: PRESENT: Clear to auscultation, Reduce breath sound at lung bases. Cardiovascular exam: PRESENT: Irregular rhythm, +S1, +S2, systolic murmur s/p right IJ perm catheter site satisfactory. Murmur grade: 3 GI/Abdominal exam: PRESENT: normal bowel sounds, soft. ABSENT: distended, guarding, mass, organomegaly, rebound, tenderness Extremities exam: PRESENT: bilateral upper extremities edema Neurological exam: PRESENT: Alert and appropriate in simple responses Skin exam: PRESENT: dry, warm, other - improved blister lesion on left leg Murmur grade: 3 Results Laboratory Results: 08/04/19 05:03 08/04/19 05:03 08/04/19 08/04/19 05:03 05:03 WBC 5.0 RBC 3.30 L Hgb 9.7 L Hct 29.9 L MCV 91 MCH 29.3 MCHC 32.3 RDW 16.7 H Plt Count 185 Sodium 133.6 L Potassium 4.1 Chloride 94 L Carbon Dioxide 30 Anion Gap 10 BUN 56 H Creatinine 5.94 H Est GFR ( Amer) 11 L Glucose 88 Calcium 10.1 07/09/19 07/09/19 07/17/19 15:38 15:38 05:19 Creatine Kinase 33 L CK-MB (CK-2) 1.89 Troponin I 0.175 NT-Pro-B Natriuret Pep 99911 H 34266 H Impressions: Renal Ultrasound 07/12/19 00:00 IMPRESSION: 1. Increased echogenicity of the renal parenchyma and thinning of the renal cortices - clinical correlation for chronic medical renal disease is recommended. 2. No hydronephrosis. 3. Harris catheter within the urinary bladder. Chest Ultrasound 07/16/19 00:00 IMPRESSION: Small right pleural effusion. Guidance Fluoroscopy 07/28/19 00:00 IMPRESSION: IMAGE(S) OBTAINED DURING PROCEDURE. Chest X-Ray 07/28/19 15:17 IMPRESSION: No pneumothorax following right-sided central line placement as described. Persistent bilateral airspace disease most likely edema. There are persistent bilateral pleural effusions. Assessment & Plan - Diagnosis (1) Acute on chronic combined systolic (congestive) and diastolic (congestive) heart failure Is this a current diagnosis for this admission?: Yes (2) CKD (chronic kidney disease) stage 5, GFR less than 15 ml/min Is this a current diagnosis for this admission?: Yes (3) Chronic a-fib Is this a current diagnosis for this admission?: Yes (4) Diabetes mellitus type 2 with complications Is this a current diagnosis for this admission?: Yes (5) Hypertension Qualifiers: Hypertension type: essential hypertension Qualified Code(s): I10 - Essential (primary) hypertension Is this a current diagnosis for this admission?: Yes (6) CAD (coronary atherosclerotic disease) Qualifiers: Coronary Disease-Associated Artery/Lesion type: unspecified vessel or lesion type Associated angina: without angina Is this a current diagnosis for this admission?: Yes (7) HLD (hyperlipidemia) Qualifiers: Hyperlipidemia type: pure hypercholesterolemia Qualified Code(s): E78.00 - Pure hypercholesterolemia, unspecified Is this a current diagnosis for this admission?: Yes (8) Old DC (myocardial infarction) Is this a current diagnosis for this admission?: Yes (9) Chronic gout Qualifiers: Gout site: unspecified site Presence of tophus: without tophus Is this a current diagnosis for this admission?: Yes (10) Osteoarthritis involving multiple joints on both sides of body Is this a current diagnosis for this admission?: Yes (11) AMS (altered mental status) Is this a current diagnosis for this admission?: Yes (12) Acute respiratory acidosis Is this a current diagnosis for this admission?: Yes (13) Subclinical hypothyroidism Is this a current diagnosis for this admission?: Yes (14) Anemia in chronic kidney disease (CKD) Qualifiers: Chronic kidney disease stage: on chronic dialysis Qualified Code(s): N18.6 - End stage renal disease; D63.1 - Anemia in chronic kidney disease; Z99.2 - Dependence on renal dialysis Is this a current diagnosis for this admission?: Yes - Time Time Spent with patient: 25-34 minutes Level of Care: IMCU Medications reviewed and adjusted accordingly: Yes Anticipated discharge: SNF Within: Other - Inpatient Certification I certify that my determination is in accordance with my understanding of Medicare's requirements for reasonable and necessary INPATIENT services [42 CFR 412.3e].: Yes Medical Necessity: Significant Comorbidiites Make Outpatient Treatment Too Risky, Need Close Monitoring Due to Risk of Patient Decompensation, Need For Continuous Telemetry Monitoring, Risk of Complication if Not Cared For in Hospital, Risk of Diagnosis Which Will Require Inpatient Eval/Care/Monitoring Post Hospital Care: D/C or Transfer Summary - Plan Summary Plan Summary: Continue current medication management. I discussed possible transfer to SNF with the daughter tomorrow if clinically stable.
[2019-08-04] MEDS: ATORVASTATIN CALCIUM 40 MG TABLET PO SCH (21:59)
[2019-08-05 01:36] LABS: HEPATITIS C QUANTITATION HCV Not Detected IU/mL (.)
[2019-08-05] MEDS: LEVOTHYROXINE SODIUM 0.025 MG TABLET PO SCH (06:26)
[2019-08-05] MEDS: HYDRALAZINE HCL 25 MG TABLET PO SCH ×3 (06:26→21:10)
[2019-08-05] MEDS: INSULIN LISPRO 100 UNIT/ML 3 ML VIAL SUBCUT SCH ×4 (08:05→22:13)
[2019-08-05] MEDS: CARVEDILOL 6.25 MG TABLET PO SCH ×2 (09:04→22:10)
[2019-08-05] MEDS: FERROUS SULFATE 325 MG TABLET PO SCH ×2 (09:04→21:12)
[2019-08-05] MEDS: APIXABAN 2.5 MG TABLET PO SCH ×2 (09:04→18:06)
[2019-08-05] MEDS: FUROSEMIDE 40 MG TABLET PO SCH (09:04)
[2019-08-05] MEDS: ASCORBIC ACID 500 MG TABLET PO SCH (09:04)
[2019-08-05] MEDS: MIDODRINE HCL 5 MG TABLET PO SCH ×3 (09:04→18:06)
[2019-08-05] MEDS: PANTOPRAZOLE SODIUM 40 MG TABLET.DR PO SCH (09:04)
--- NOTE | 2019-08-05 13:04 | PDOC PROGRESS REPORT ---
Subjective Progress Note for:: 08/05/19 Subjective:: Patient denied any chest pain or difficulty with breathing. No reported fever or chills. No nausea, vomiting, or abdominal pain. Awaiting clarification about medicaid coverage for his SNF short term rehabilitation placement at the time of my documentation. He is already accepted to [facility] for his hemodialysis need upon transfer to SNF. Reason For Visit: ACUTE ON CHRONIC CHF,CHRONIC A-FIB,DM TYPE 2,HTN,C Physical Exam Vital Signs: Temp Pulse Resp BP Pulse Ox 98.2 F 61 20 119/96 H 95 08/05/19 10:52 08/05/19 10:52 08/05/19 10:52 08/05/19 10:52 08/05/19 10:52 Intake & Output 08/04/19 08/05/19 08/06/19 06:59 06:59 06:59 Intake Total 700 1597 240 Output Total 2000 Balance 700 -403 240 Weight 80.1 kg 80 kg Physical Exam: General appearance: PRESENT: mild distress on supplemental oxygen via nasal cannula support Head exam: PRESENT: atraumatic, normocephalic Eye exam: PRESENT: conjunctiva pink. ABSENT: pallor, scleral icterus Respiratory exam: PRESENT: Clear to auscultation, Reduce breath sound at lung bases. Cardiovascular exam: PRESENT: Irregular rhythm, +S1, +S2, systolic murmur s/p right IJ perm catheter site satisfactory. Murmur grade: 3 GI/Abdominal exam: PRESENT: normal bowel sounds, soft. ABSENT: distended, guarding, mass, organomegaly, rebound, tenderness Extremities exam: PRESENT: bilateral upper extremities edema Neurological exam: PRESENT: Alert and appropriate in simple responses Skin exam: PRESENT: dry, warm, other - improved blister lesion on left leg Murmur grade: 3 Results Laboratory Results: 08/04/19 05:03 08/04/19 05:03 07/09/19 07/09/19 07/17/19 15:38 15:38 05:19 Creatine Kinase 33 L CK-MB (CK-2) 1.89 Troponin I 0.175 NT-Pro-B Natriuret Pep 31350 H 45898 H Impressions: Renal Ultrasound 07/12/19 00:00 IMPRESSION: 1. Increased echogenicity of the renal parenchyma and thinning of the renal cortices - clinical correlation for chronic medical renal disease is recommended. 2. No hydronephrosis. 3. Harris catheter within the urinary bladder. Chest Ultrasound 07/16/19 00:00 IMPRESSION: Small right pleural effusion. Guidance Fluoroscopy 07/28/19 00:00 IMPRESSION: IMAGE(S) OBTAINED DURING PROCEDURE. Chest X-Ray 07/28/19 15:17 IMPRESSION: No pneumothorax following right-sided central line placement as described. Persistent bilateral airspace disease most likely edema. There are persistent bilateral pleural effusions. Assessment & Plan - Diagnosis (1) Acute on chronic combined systolic (congestive) and diastolic (congestive) heart failure Is this a current diagnosis for this admission?: Yes (2) CKD (chronic kidney disease) stage 5, GFR less than 15 ml/min Is this a current diagnosis for this admission?: Yes (3) Chronic a-fib Is this a current diagnosis for this admission?: Yes (4) Diabetes mellitus type 2 with complications Is this a current diagnosis for this admission?: Yes (5) Hypertension Qualifiers: Hypertension type: essential hypertension Qualified Code(s): I10 - Essential (primary) hypertension Is this a current diagnosis for this admission?: Yes (6) CAD (coronary atherosclerotic disease) Qualifiers: Coronary Disease-Associated Artery/Lesion type: unspecified vessel or lesion type Associated angina: without angina Is this a current diagnosis for this admission?: Yes (7) HLD (hyperlipidemia) Qualifiers: Hyperlipidemia type: pure hypercholesterolemia Qualified Code(s): E78.00 - Pure hypercholesterolemia, unspecified Is this a current diagnosis for this admission?: Yes (8) Old MS (myocardial infarction) Is this a current diagnosis for this admission?: Yes (9) Chronic gout Qualifiers: Gout site: unspecified site Presence of tophus: without tophus Is this a current diagnosis for this admission?: Yes (10) Osteoarthritis involving multiple joints on both sides of body Is this a current diagnosis for this admission?: Yes (11) AMS (altered mental status) Is this a current diagnosis for this admission?: Yes (12) Acute respiratory acidosis Is this a current diagnosis for this admission?: Yes (13) Subclinical hypothyroidism Is this a current diagnosis for this admission?: Yes (14) Anemia in chronic kidney disease (CKD) Qualifiers: Chronic kidney disease stage: on chronic dialysis Qualified Code(s): N18.6 - End stage renal disease; D63.1 - Anemia in chronic kidney disease; Z99.2 - Dependence on renal dialysis Is this a current diagnosis for this admission?: Yes - Time Time Spent with patient: 25-34 minutes Level of Care: IMCU Medications reviewed and adjusted accordingly: Yes Anticipated discharge: SNF Within: when bed available - Inpatient Certification Based on my medical assessment, after consideration of the patient's comorbidities, presenting symptoms, or acuity I expect that the services needed warrant INPATIENT care.: Yes I certify that my determination is in accordance with my understanding of Medicare's requirements for reasonable and necessary INPATIENT services [42 CFR 412.3e].: Yes Medical Necessity: Significant Comorbidiites Make Outpatient Treatment Too Risky, Need Close Monitoring Due to Risk of Patient Decompensation, Need For Continuous Telemetry Monitoring, Risk of Complication if Not Cared For in Hospital, Risk of Diagnosis Which Will Require Inpatient Eval/Care/Monitoring Post Hospital Care: D/C or Transfer Summary - Plan Summary Plan Summary: Decrease Lasix to 60 mg po daily. continue all other current medication management.
--- NOTE | 2019-08-05 13:22 | PDOC PROGRESS REPORT ---
Subjective Progress Note for:: 08/05/19 Subjective:: Patient seen to be resting comfortably. No distress noted. Discharge planning in progress Reason For Visit: ACUTE ON CHRONIC CHF,CHRONIC A-FIB,DM TYPE 2,HTN,C Physical Exam Vital Signs: Temp Pulse Resp BP Pulse Ox 98.2 F 61 20 119/96 H 95 08/05/19 10:52 08/05/19 10:52 08/05/19 10:52 08/05/19 10:52 08/05/19 10:52 Intake & Output 08/04/19 08/05/19 08/06/19 06:59 06:59 06:59 Intake Total 700 1597 240 Output Total 2000 Balance 700 -403 240 Weight 80.1 kg 80 kg General appearance: PRESENT: no acute distress, cooperative, well-developed, well-nourished Head exam: PRESENT: atraumatic, normocephalic Respiratory exam: PRESENT: symmetrical, unlabored Cardiovascular exam: PRESENT: irregular rhythm, +S1, +S2 Rectal exam: PRESENT: deferred Skin exam: PRESENT: dry, intact Results Laboratory Results: 08/04/19 05:03 08/04/19 05:03 07/09/19 07/09/19 07/17/19 15:38 15:38 05:19 Creatine Kinase 33 L CK-MB (CK-2) 1.89 Troponin I 0.175 NT-Pro-B Natriuret Pep 62575 H 35014 H Impressions: Renal Ultrasound 07/12/19 00:00 IMPRESSION: 1. Increased echogenicity of the renal parenchyma and thinning of the renal cortices - clinical correlation for chronic medical renal disease is recommended. 2. No hydronephrosis. 3. Harris catheter within the urinary bladder. Chest Ultrasound 07/16/19 00:00 IMPRESSION: Small right pleural effusion. Guidance Fluoroscopy 07/28/19 00:00 IMPRESSION: IMAGE(S) OBTAINED DURING PROCEDURE. Chest X-Ray 07/28/19 15:17 IMPRESSION: No pneumothorax following right-sided central line placement as described. Persistent bilateral airspace disease most likely edema. There are persistent bilateral pleural effusions. Assessment & Plan - Diagnosis (1) Hypertension Qualifiers: Hypertension type: essential hypertension Qualified Code(s): I10 - Essential (primary) hypertension Is this a current diagnosis for this admission?: Yes Plan: Continue to watch blood pressure LV systolic dysfunction, may have pronounced response to antihypertensives. (2) Chronic a-fib Is this a current diagnosis for this admission?: Yes Plan: Rate controlled. Asymptomatic Continue present therapy Systemic anticoagulation with apixaban. (3) CHF (congestive heart failure) Qualifiers: Heart failure type: combined systolic and diastolic Heart failure chronicity: acute on chronic Qualified Code(s): I50.43 - Acute on chronic combined systolic (congestive) and diastolic (congestive) heart failure Is this a current diagnosis for this admission?: Yes Plan: has improved overall. Especially with institution of renal replacement therapy. (4) ICD (implantable cardioverter-defibrillator) in place Is this a current diagnosis for this admission?: Yes Plan: ICD in place - Notes Notes: Severe LV dysfunction with dilated cardiomyopathy and cardiorenal syndrome. Patient has improved significantly with short period of inotropic therapy with dobutamine followed by institution of renal replacement therapy with end-stage renal dialysis. Overall clinical picture has not improved much in terms of level of functioning but he continues to do well.
[2019-08-05 15:32] LABS: ABSOLUTE EOSINOPHILS # (AUTO) 0.1 10^3/uL (0.0-0.6); ABSOLUTE LYMPHOCYTES (AUTO) 0.3 10^3/uL (0.5-4.7); ABSOLUTE MONOCYTES (AUTO) 0.6 10^3/uL (0.1-1.4); ABSOLUTE NEUT (AUTO) 4.1 10^3/uL (1.7-8.2); BASOPHILS % (AUTO) 0.7 % (0-2); EOSINOPHILS % (AUTO) 1.3 % (0-6); HEMATOCRIT 30.5 % (37.9-51.0); HEMOGLOBIN 9.8 g/dL (13.5-17.0); LYMPHOCYTES % (AUTO) 5.1 % (13-45); MEAN CORPUSCULAR HEMOGLOBIN 29.3 pg (27.0-33.4); MEAN CORPUSCULAR VOLUME 92 fl (80-97); MONOCYTES % (AUTO) 12.7 % (3-13); PLATELET COUNT 191 10^3/uL (150-450); RED BLOOD COUNT 3.33 10^6/uL (4.35-5.55); RED CELL DISTRIBUTION WIDTH 16.6 % (11.5-14.0); SEGMENTED NEUTROPHILS % (AUTO) 80.2 % (42-78); TOTAL CELLS COUNTED % (AUTO) 100 %; WHITE BLOOD COUNT 5.1 10^3/uL (4.0-10.5)
[2019-08-05 15:48] LABS: INTERNATIONAL RATION (INR) 1.36; PROTHROMBIN TIME 16.9 SEC (11.4-15.4)
[2019-08-05 15:49] LABS: ANION GAP 9 (5-19); BLOOD UREA NITROGEN 43 mg/dL (7-20); CARBON DIOXIDE 29 mmol/L (22-30); CHLORIDE 95 mmol/L (98-107); GLUCOSE 118 mg/dL (75-110); POTASSIUM 4.2 mmol/L (3.6-5.0)
[2019-08-05] MEDS: ATORVASTATIN CALCIUM 40 MG TABLET PO SCH (21:12)
[2019-08-06] MEDS ORDERED: EPOETIN ALFA-EPBX 10,000 UNIT in SYRINGE, DISPOSABLE, 1 EACH IV PRN (05:00)
[2019-08-06] MEDS ORDERED: HEPARIN SOD (PORCINE) 1,000 UNIT/ML 10 ML VIAL IV PRN (05:00)
[2019-08-06] MEDS: HYDRALAZINE HCL 25 MG TABLET PO SCH (05:24)
[2019-08-06] MEDS: LEVOTHYROXINE SODIUM 0.025 MG TABLET PO SCH (05:25)
[2019-08-06 05:40] LABS: HEMATOCRIT 30.5 % (37.9-51.0); HEMOGLOBIN 9.6 g/dL (13.5-17.0); MEAN CORPUSCULAR HEMOGLOBIN 28.7 pg (27.0-33.4); MEAN CORPUSCULAR HGB CONC 31.4 g/dL (32.0-36.0); MEAN CORPUSCULAR VOLUME 91 fl (80-97); PLATELET COUNT 194 10^3/uL (150-450); RED BLOOD COUNT 3.35 10^6/uL (4.35-5.55); RED CELL DISTRIBUTION WIDTH 16.9 % (11.5-14.0); WHITE BLOOD COUNT 5.4 10^3/uL (4.0-10.5)
[2019-08-06 05:55] LABS: ANION GAP 9 (5-19); BLOOD UREA NITROGEN 47 mg/dL (7-20); CALCIUM 10.2 mg/dL (8.4-10.2); CARBON DIOXIDE 29 mmol/L (22-30); CHLORIDE 95 mmol/L (98-107); GLUCOSE 127 mg/dL (75-110); POTASSIUM 3.9 mmol/L (3.6-5.0)
--- NOTE | 2019-08-06 08:49 | PDOC TRANSFER SUMMARY ---
Impression - Admit/DC Date/PCP Admission Date/Primary Care Provider: 07/09/19 14:46 HIMA NIKITA Discharge Date: 08/06/19 - Discharge Diagnosis (1) Acute on chronic combined systolic (congestive) and diastolic (congestive) heart failure Is this a current diagnosis for this admission?: Yes (2) CKD (chronic kidney disease) stage 5, GFR less than 15 ml/min Is this a current diagnosis for this admission?: Yes (3) Chronic a-fib Is this a current diagnosis for this admission?: Yes (4) Diabetes mellitus type 2 with complications Is this a current diagnosis for this admission?: Yes (5) Hypertension Is this a current diagnosis for this admission?: Yes (6) CAD (coronary atherosclerotic disease) Is this a current diagnosis for this admission?: Yes (7) HLD (hyperlipidemia) Is this a current diagnosis for this admission?: Yes (8) Old [place] (myocardial infarction) Is this a current diagnosis for this admission?: Yes (9) Chronic gout Is this a current diagnosis for this admission?: Yes (10) Osteoarthritis involving multiple joints on both sides of body Is this a current diagnosis for this admission?: Yes (11) AMS (altered mental status) Is this a current diagnosis for this admission?: Yes (12) Acute respiratory acidosis Is this a current diagnosis for this admission?: Yes (13) Subclinical hypothyroidism Is this a current diagnosis for this admission?: Yes (14) Anemia in chronic kidney disease (CKD) Is this a current diagnosis for this admission?: Yes - Assessment Summary: Patient was admitted for acute on chronic combined congestive heart failure. His condition was further complicated by worsening morbidities including chronic kidney disease and chronic atrial fibrillation. He was seen in consultation by Dr. Torsten Wild, wig dresser, and Dr. Barroso Supervisor [employer]. Due to low LVEF he was supported on Dobutamine to augment his cardiac function and benefit his kidney output. He did very well on the Dobutamine infusion but subsequent to discontinuation his renal function status did no show any improvement necessitating initiation of hemodialysis support. There was concern for possible pneumonia during this hospitalization for which he received adequate IV antibiotic coverage. His overall prognosis remain poor but he continue to show some improvement in his functional level. He will be transferred to SNF today for short term rehabilitation and continue outpatient hemodialysis at [facility]. He will follow up with specialist as instructed upon discharge. He will follow up with me upon discharged from the senior living. He will benefit from home health agency services upon discharge from the senior living. - Additional Information Resuscitation Status: Do Not Resuscitate Discharge Diet: Cardiac, Diabetic Discharge Activity: Activity As Tolerated, Balance Activity w/Rest, Weigh Daily Referrals: HIMA SHELTON MD [Primary Care Provider] - (SNF staff must call office before discharge for follopw up appointment) SHONNA TORREZ MD [ACTIVE STAFF] - PRAVEENA BARROSO MD [ACTIVE STAFF] - Home Medications: Carvedilol [Coreg 6.25 mg Tablet] 6.25 mg PO Q12 07/25/17 Ergocalciferol (Vitamin D2) [Drisdol 50,000 unit (1.25MG) Capsule] 50,000 unit PO [id number] 07/25/17 Glipizide [Glucotrol 5 mg Tablet] 2.5 mg PO DAILY 07/25/17 Umeclidinium Brm/Vilanterol Tr [Anoro Ellipta 62.5-25 Mcg INH] 1 each IH DAILY 07/20/18 Allopurinol [Zyloprim 100 mg Tablet] 100 mg PO Q3D 07/09/19 Apixaban [Eliquis 2.5 mg Tablet] 2.5 mg PO Q12 07/09/19 Ascorbic Acid [Vitamin C 500 mg Tablet] 500 mg PO DAILY 07/09/19 Atorvastatin Calcium [Lipitor 40 mg Tablet] 40 mg PO QPM 07/09/19 Docusate Sodium [Colace 100 mg Capsule] 100 mg PO BID 07/09/19 Ferrous Sulfate [Feosol 325 mg Tablet] 325 mg PO Q12 07/09/19 Hydralazine HCl [Apresoline 25 mg Tablet] 25 mg PO Q8 07/09/19 Epoetin Gee-Epbx [Retacrit 10,000 Unit/ml Vial (Renal)] 10,000 unit IV .DIALYSIS PRN vial 08/06/19 Furosemide [Lasix 40 mg Tablet] 60 mg PO DAILY tablet 08/06/19 Insulin Lispro [Humalog Insulin (Lispro) 100 unit/mL] 0 - 12 unit SUBCUT ACHS unit 08/06/19 Levothyroxine Sodium [Synthroid 0.025 mg Tablet] 0.025 mg PO Q6AM tablet 08/06/19 Midodrine HCl [Proamatine 5 mg Tablet] 5 mg PO TID tablet 08/06/19 History of Present Illiness History of Present Illness: SORIN PINEDA is a 79 year old male patient known to my practice who was recently evaluated in the office for leg swelling and concern about his congestive heart failure. He reported compliance with his medication and dietary salt as well as fluid restriction. Daughter reported worsening fatigue to the point that patient required assistance with bathing. There is associated development of blister lesions on his leg, right more than left and associated leg swelling. Daughter reported scrotal swelling that was noted this morning. Patient denied any chest pain but admitted to exertional shortness of breath. Sleep with 2-3 pillow at night. he denied any palpitation, nausea or vomiting. he reported constipation and no benefit from Colace therapy. No abdominal pain. Patient reported feeling more cold than usual when others are feeling normal or hot. he denied any issue with his urination although daughter reported less voiding despite administration of Furosemide. Importantly, daughter expressed concern about patient missing his evening medication administration. Hospital Course Hospital Course: Patient was admitted for acute on chronic combined congestive heart failure. His condition was further complicated by worsening morbidities including chronic kidney disease and chronic atrial fibrillation. He was seen in consultation by Dr. Torsten Wild, wig dresser, and Dr. Barroso Supervisor [employer]. Due to low LVEF he was supported on Dobutamine to augment his cardiac function and benefit his kidney output. He did very well on the Dobutamine infusion but subsequent to discontinuation his renal function status did no show any improvement necessitating initiation of hemodialysis support. There was concern for possible pneumonia during this hospitalization for which he received adequate IV antibiotic coverage. His overall prognosis remain poor but he continue to show some improvement in his functional level. He will be transferred to SNF today for short term rehabilitation and continue outpatient hemodialysis at [facility]. He will follow up with specialist as instructed upon discharge. He will follow up with me upon discharged from the senior living. He will benefit from home health agency services upon discharge from the senior living. Physical Exam Vital Signs: Temp Pulse Resp BP Pulse Ox 98.6 F 80 22 H 114/96 H 96 08/06/19 02:58 08/06/19 07:00 08/06/19 02:58 08/06/19 02:58 08/06/19 02:58 Intake & Output 08/05/19 08/06/19 08/07/19 06:59 06:59 06:59 Intake Total 1597 390 Output Total 2000 Balance -403 390 Weight 80 kg 72.6 kg General appearance: PRESENT: mild distress on supplemental oxygen via nasal cannula support Head exam: PRESENT: atraumatic, normocephalic Eye exam: PRESENT: conjunctiva pink. ABSENT: pallor, scleral icterus Respiratory exam: PRESENT: Clear to auscultation, Reduce breath sound at lung bases. Cardiovascular exam: PRESENT: Irregular rhythm, +S1, +S2, systolic murmur s/p right IJ perm catheter site satisfactory. Murmur grade: 3 GI/Abdominal exam: PRESENT: normal bowel sounds, soft. ABSENT: distended, guarding, mass, organomegaly, rebound, tenderness Extremities exam: PRESENT: bilateral upper extremities edema Neurological exam: PRESENT: Alert and appropriate in simple responses Skin exam: PRESENT: dry, warm, other - improved blister lesion on left leg Results Laboratory Results: WBC 5.4 10^3/uL (4.0-10.5) 08/06/19 05:05 RBC 3.35 10^6/uL (4.35-5.55) L 08/06/19 05:05 Hgb 9.6 g/dL (13.5-17.0) L 08/06/19 05:05 Hct 30.5 % (37.9-51.0) L 08/06/19 05:05 MCV 91 fl (80-97) 08/06/19 05:05 MCH 28.7 pg (27.0-33.4) 08/06/19 05:05 MCHC 31.4 g/dL (32.0-36.0) L 08/06/19 05:05 RDW 16.9 % (11.5-14.0) H 08/06/19 05:05 Plt Count 194 10^3/uL (150-450) 08/06/19 05:05 Lymph % (Auto) 5.1 % (13-45) L 08/05/19 15:26 [place] % (Auto) 12.7 % (3-13) 08/05/19 15:26 Eos % (Auto) 1.3 % (0-6) 08/05/19 15:26 Baso % (Auto) 0.7 % (0-2) 08/05/19 15:26 Reticulocyte # 0.020 10^6/uL (0.028-0.122) L 07/26/19 04:57 Absolute Neuts (auto) 4.1 10^3/uL (1.7-8.2) 08/05/19 15:26 Absolute Lymphs (auto) 0.3 10^3/uL (0.5-4.7) L 08/05/19 15:26 Absolute Monos (auto) 0.6 10^3/uL (0.1-1.4) 08/05/19 15: Absolute Eos (auto) 0.1 10^3/uL (0.0-0.6) 08/05/19 15: Absolute Basos (auto) 0.0 10^3/uL (0.0-0.2) 08/05/19 15:26 Total Counted 100 07/23/19 09:18 Seg Neutrophils % 80.2 % (42-78) H 08/05/19 15:26 Seg Neuts % (Manual) 86 % (42-78) H 07/23/19 09:18 Lymphocytes % (Manual) 4 % (13-45) L 07/23/19 09:18 Monocytes % (Manual) 7 % (3-13) 07/23/19 09:18 Eosinophils % (Manual) 3 % (0-6) 07/23/19 09:18 Basophils % (Manual) 0 % (0-2) 07/23/19 09:18 Abs Neuts (Manual) 4.8 10^3/uL (1.7-8.2) 07/23/19 09:18 Abs Lymphs (Manual) 0.2 10^3/uL (0.5-4.7) L 07/23/19 09:18 Abs Monocytes (Manual) 0.4 10^3/uL (0.1-1.4) 07/23/19 09:18 Absolute Eos (Manual) 0.2 10^3/uL (0.0-0.6) 07/23/19 09:18 Abs Basophils (Manual) 0.0 10^3/uL (0.0-0.2) 07/23/19 09:18 Platelet Comment DECREASED 07/23/19 09:18 Hypochromasia SLIGHT 07/22/19 11:00 Poikilocytosis 1+ 07/23/19 09:18 Anisocytosis 1+ 07/23/19 09:18 Ovalocytes 1+ 07/23/19 09:18 Tiffany Cells SLIGHT 07/22/19 11:00 Schistocytes SLIGHT 07/14/19 21:14 Retic Count (auto) 0.56 % (0.66-2.85) L 07/26/19 04:57 PT 16.9 SEC (11.4-15.4) H 08/05/19 15:26 INR 1.36 08/05/19 15:26 Carbonic Acid 2.22 mmol/L (1.05-1.35) H 07/20/19 11:38 HCO3/H2CO3 Ratio 12:1 07/20/19 11:38 ABG pH 7.18 (7.35-7.45) L* 07/20/19 11:38 ABG pCO2 73.9 mmHg (35-45) H* 07/20/19 11:38 ABG pO2 123.5 mmHg (80-100) H 07/20/19 11:38 ABG HCO3 26.8 mmol/L (20-24) H 07/20/19 11:38 ABG Total CO2 29.0 mmol/L (23-27) H 07/20/19 11:38 ABG O2 Saturation 97.4 % (94-98) 07/20/19 11:38 ABG Base Excess -3.0 mmol/L 07/20/19 11:38 FiO2 4L 07/20/19 11:38 Sodium 133.4 mmol/L (137-145) L 08/06/19 05:05 Potassium 3.9 mmol/L (3.6-5.0) 08/06/19 05:05 Chloride 95 mmol/L (98-107) L 08/06/19 05:05 Carbon Dioxide 29 mmol/L (22-30) 08/06/19 05:05 Anion Gap 9 (5-19) 08/06/19 05:05 BUN 47 mg/dL (7-20) H 08/06/19 05:05 Creatinine 5.93 mg/dL (0.52-1.25) H 08/06/19 05:05 Est GFR ( Amer) 11 (>60) L 08/06/19 05:05 Est GFR (Non-Af Amer) Cancelled 07/16/19 05:53 Est GFR (MDRD) Non-Af 9 (>60) L 08/06/19 05:05 Glucose 127 mg/dL (75-110) H 08/06/19 05:05 POC Glucose 155 mg/dL (70-110) H 08/05/19 21:24 Calcium 10.2 mg/dL (8.4-10.2) 08/06/19 05:05 Phosphorus 4.9 mg/dL (2.5-4.5) H 07/28/19 06:30 Magnesium 2.0 mg/dL (1.6-2.3) 07/28/19 06:30 Iron 47.6 ug/dL (49-181) L 07/26/19 11:39 TIBC 220 ug/dL (250-450) L 07/26/19 11:39 % Saturation 22 % 07/26/19 11:39 Transferrin 143.93 mg/dL (206.00-381.00) L 07/26/19 11:39 Ferritin 211.00 ng/mL (17.9-464.0) 07/26/19 11:39 Total Bilirubin 0.6 mg/dL (0.2-1.3) 07/22/19 11:00 Direct Bilirubin 0.2 mg/dL (0.0-0.4) 07/22/19 11:00 Neonat Total Bilirubin Not Reportable 07/22/19 11:00 Neonat Direct Bilirubin Not Reportable 07/22/19 11:00 Neonat Indirect Bili Not Reportable 07/22/19 11:00 AST 26 U/L (17-59) 07/22/19 11:00 ALT 14 U/L (<50) 07/22/19 11:00 Alkaline Phosphatase 55 U/L (38-126) 07/22/19 11:00 Ammonia 16.4 umol/L (9-33) 07/12/19 14:20 Creatine Kinase 33 U/L (55-170) L 07/09/19 15:38 CK-MB (CK-2) 1.89 ng/mL (<4.55) 07/09/19 15:38 Troponin I 0.175 ng/mL 07/09/19 15:38 NT-Pro-B Natriuret Pep 96897 pg/mL (<450) H 07/17/19 05:19 Total Protein 6.2 g/dL (6.3-8.2) L 07/22/19 11:00 Albumin 3.3 g/dL (3.5-5.0) L 07/22/19 11:00 EGFR Cancelled 07/16/19 05:53 Vitamin B12 394.0 pg/mL (239-931) 07/26/19 11:39 Folate 7.79 ng/mL (>2.76) 07/26/19 11:39 TSH 8.59 uIU/mL (0.47-4.68) H 07/09/19 15:38 Free T4 0.93 ng/dL (0.78-2.19) 07/09/19 15:38 Thyroxine (T4) 5.59 ug/dL (5.53-11.0) 07/09/19 15:38 Free T3 pg/mL 2.27 pg/mL (2.77-5.27) L 07/09/19 15:38 Reverse T3 36.7 ng/dL (9.2-24.1) H 07/11/19 05:00 PTH Intact 284.1 pg/mL (10.0-65.0) H 07/22/19 11:00 Urine Color RED 07/24/19 13:31 Urine Appearance CLEAR 07/24/19 13:31 Urine pH 6.0 (5.0-9.0) 07/24/19 13:31 Ur Specific [place] 1.010 07/24/19 13:31 Urine Protein 100 mg/dL (NEGATIVE) H 07/24/19 13:31 Urine Glucose (UA) NEGATIVE mg/dL (NEGATIVE) 07/24/19 13:31 Urine Ketones NEGATIVE mg/dL (NEGATIVE) 07/24/19 13:31 Urine Blood LARGE (NEGATIVE) H 07/24/19 13:31 Urine Nitrite NEGATIVE (NEGATIVE) 07/24/19 13:31 Urine Bilirubin NEGATIVE (NEGATIVE) 07/24/19 13:31 Urine Urobilinogen NEGATIVE mg/dL (<2.0) 07/24/19 13:31 Ur Leukocyte Esterase SMALL (NEGATIVE) H 07/24/19 13:31 Urine WBC (Auto) 28 /HPF 07/24/19 13:31 Urine RBC (Auto) >182 /HPF 07/24/19 13:31 Urine Bacteria (Auto) TRACE /HPF 07/12/19 14:55 Urine Mucus (Auto) RARE /LPF 07/12/19 14:55 Urine Ascorbic Acid NEGATIVE (NEGATIVE) 07/24/19 13:31 Stool Occult Blood POSITIVE (NEGATIVE) 08/05/19 13:45 Thyroid Peroxidase Ab 8 IU/mL (0-34) 07/11/19 05:00 COVID-19 Source NASOPHARYNGEAL 07/23/19 10:32 COVID-19 (ISAAC) NOT DETECTED 07/23/19 10:32 Hep Bs Antigen Negative (Negative) 07/26/19 11:39 Hep Bs Antibody, Quant 235.1 mIU/mL (Immunity>9) 07/26/19 11:39 Hep B Core Total Ab Negative (Negative) 07/26/19 11:39 HCV Quantitation HCV Not Detected IU/mL (.) 07/26/19 11:39 HCV RNA PCR Test Info Comment (.) 07/26/19 11:39 07/09/19 07/17/19 15:38 05:19 CK-MB (CK-2) 1.89 Troponin I 0.175 NT-Pro-B Natriuret Pep 21413 H 53241 H Impressions: Chest X-Ray 07/09/19 00:00 IMPRESSION: Stable enlarged cardiac silhouette, central vascular congestion and small bilateral effusions, right greater than left. Renal Ultrasound 07/12/19 00:00 IMPRESSION: 1. Increased echogenicity of the renal parenchyma and thinning of the renal cortices - clinical correlation for chronic medical renal disease is recommended. 2. No hydronephrosis. 3. Harris catheter within the urinary bladder. Chest X-Ray 07/15/19 00:00 IMPRESSION: No interval change in appearance of the chest when compared to prior. Pleural and parenchymal disease, bilaterally. Enlarged heart. Chest X-Ray 07/15/19 08:08 IMPRESSION: CHF. No significant change. Chest Ultrasound 07/16/19 00:00 IMPRESSION: Small right pleural effusion. Chest X-Ray 07/22/19 00:00 IMPRESSION: Right pleural effusion. No significant change. Guidance Fluoroscopy 07/28/19 00:00 IMPRESSION: IMAGE(S) OBTAINED DURING PROCEDURE. Chest X-Ray 07/28/19 15:17 IMPRESSION: No pneumothorax following right-sided central line placement as described. Persistent bilateral airspace disease most likely edema. There are persistent bilateral pleural effusions. Plan Health Concerns: Compliance with dialysis service, dietary restrictions and medication administration. High risk for readmission. Plan of Treatment: Maintain on outpatient hemodialysis therapy for fluid management. Goals: Reduce readmission risk. Time Spent: Greater than 30 Minutes Stroke Is this a Stroke Patient?: No Acute Heart Failure - Is this a Heart Failure Patient?: Yes Documentation of LVEF assessment?: Yes LVEF: LVEF Less Than or Equal to 35% Anticoagulant Therapy: Yes Discharged on Evidence-Based Beta Blockers: Yes Discharged on ARNI?: No-Document Contraindications - ESRD on Hemodialysis and hypotension. Reason(s) not discharged on ARNI: Impaired/worsening renal functions - ESRD on Hemodialysis and hypotension. Discharged on ARB?: No-document contraindications - ESRD on Hemodialysis and hypotension. Reason(s) not Discharged on ARB: Impaired/worsening renal functions - ESRD on Hemodialysis and hypotension. Discharged on ACEI?: No, document contraindications - ESRD on Hemodialysis and hypotension. Reason(s) not Discharged on ACEI: Impaied/worsening renal function - ESRD on Hemodialysis and hypotension. For LVEF <35%, discharged on Aldosterone Antagonist?: N/A (LVEF > or = 35%) Reason(s) not discharged on Aldosterone Antagonist: Renal dysfunction (crea tinine >2.5 mg/dL in men or 2.0 mg/dL in women) - ESRD on Hemodialysis and hypotension. Follow-up Appointment scheduled within 7 days?: Yes - May be difficulty due to transfer to SNF for short term rehabilitation.
[2019-08-06] MEDS ORDERED: FUROSEMIDE 40 MG TABLET PO SCH (10:00)
[2019-08-06] MEDS: INSULIN LISPRO 100 UNIT/ML 3 ML VIAL SUBCUT SCH ×2 (10:57→12:24)
[2019-08-06] MEDS: PANTOPRAZOLE SODIUM 40 MG TABLET.DR PO SCH (12:18)
[2019-08-06 12:21] VITALS: BP 92/64
[2019-08-06] MEDS: CARVEDILOL 6.25 MG TABLET PO SCH (12:21)
[2019-08-06] MEDS: APIXABAN 2.5 MG TABLET PO SCH (12:22)
[2019-08-06] MEDS: MIDODRINE HCL 5 MG TABLET PO SCH ×2 (12:22→13:57)
[2019-08-06] MEDS: FERROUS SULFATE 325 MG TABLET PO SCH (12:23)
[2019-08-06] MEDS: ASCORBIC ACID 500 MG TABLET PO SCH (12:23)
--- NOTE | 2019-08-06 12:51 | PDOC PROGRESS REPORT ---
Subjective Progress Note for:: 08/06/19 Reason For Visit: Patient seen today on dialysis. Undergoing dialysis without any issues. Vital signs are stable. Dialysis orders were reviewed with the treating dialysis nurse. Labs and medications were reviewed. Physical Exam Vital Signs: Temp Pulse Resp BP Pulse Ox 97.4 F 72 20 92/64 L 92 08/06/19 11:57 08/06/19 11:57 08/06/19 11:57 08/06/19 11:57 08/06/19 11:55 Intake & Output 08/05/19 08/06/19 08/07/19 06:59 06:59 06:59 Intake Total 1597 390 Output Total 2000 1100 Balance -403 390 -1100 Weight 80 kg 72.6 kg 72.6 kg General appearance: PRESENT: no acute distress Respiratory exam: PRESENT: clear to auscultation amelia, decreased breath sounds. ABSENT: crackles Cardiovascular exam: PRESENT: irregular rhythm, +S1, +S2. ABSENT: rubs GI/Abdominal exam: PRESENT: distended, normal bowel sounds, soft. ABSENT: guarding, organomegaly, tenderness Extremities exam: PRESENT: pedal edema Neurological exam: PRESENT: alert, awake Results Laboratory Results: 08/06/19 05:05 08/06/19 05:05 08/05/19 08/05/19 08/05/19 13:45 15:26 15:26 WBC 5.1 RBC 3.33 L Hgb 9.8 L Hct 30.5 L MCV 92 MCH 29.3 MCHC 32.0 RDW 16.6 H Plt Count 191 Seg Neutrophils % 80.2 H Sodium 133.0 L Potassium 4.2 Chloride 95 L Carbon Dioxide 29 Anion Gap 9 BUN 43 H Creatinine 5.00 H Est GFR ( Amer) 14 L Glucose 118 H Calcium 10.0 Stool Occult Blood POSITIVE 08/06/19 08/06/19 05:05 05:05 WBC 5.4 RBC 3.35 L Hgb 9.6 L Hct 30.5 L MCV 91 MCH 28.7 MCHC 31.4 L RDW 16.9 H Plt Count 194 Seg Neutrophils % Sodium 133.4 L Potassium 3.9 Chloride 95 L Carbon Dioxide 29 Anion Gap 9 BUN 47 H Creatinine 5.93 H Est GFR ( Amer) 11 L Glucose 127 H Calcium 10.2 Stool Occult Blood 07/09/19 07/09/19 07/17/19 15:38 15:38 05:19 Creatine Kinase 33 L CK-MB (CK-2) 1.89 Troponin I 0.175 NT-Pro-B Natriuret Pep 62597 H 35682 H Impressions: Renal Ultrasound 07/12/19 00:00 IMPRESSION: 1. Increased echogenicity of the renal parenchyma and thinning of the renal cortices - clinical correlation for chronic medical renal disease is recommended. 2. No hydronephrosis. 3. Harris catheter within the urinary bladder. Chest Ultrasound 07/16/19 00:00 IMPRESSION: Small right pleural effusion. Guidance Fluoroscopy 07/28/19 00:00 IMPRESSION: IMAGE(S) OBTAINED DURING PROCEDURE. Chest X-Ray 07/28/19 15:17 IMPRESSION: No pneumothorax following right-sided central line placement as described. Persistent bilateral airspace disease most likely edema. There are persistent bilateral pleural effusions. Assessment & Plan - Diagnosis (1) Acute kidney injury superimposed on chronic kidney disease Is this a current diagnosis for this admission?: Yes Plan: Patient has now reached ESRD and currently has started on hemodialysis. Currently being dialyzed and being supervised.Plan to remove between 1-2 L as tolerated. Dialysis orders were reviewed with the treating dialysis nurse. (2) End stage renal disease on dialysis Is this a current diagnosis for this admission?: Yes Plan: As mentioned earlier. Plan for outpatient dialysis on discharge.Discharge pl liliana is making appropriate arrangements. (3) Diabetes mellitus type 2 in obese Is this a current diagnosis for this admission?: Yes Plan: As per Dr. Yeboah. (4) Acute on chronic combined systolic (congestive) and diastolic (congestive) heart failure Is this a current diagnosis for this admission?: Yes Plan: Being followed closely by staff veterinarian. Currently compensated. (5) Hypercalcemia Is this a current diagnosis for this admission?: Yes Plan: Currently stable. Monitor. (6) Anemia in chronic kidney disease (CKD) Qualifiers: Chronic kidney disease stage: on chronic dialysis Qualified Code(s): N18.6 - End stage renal disease; D63.1 - Anemia in chronic kidney disease; Z99.2 - Dependence on renal dialysis Is this a current diagnosis for this admission?: Yes Plan: Adjust erythropoietin.
--- NOTE | 2019-08-06 15:45 | PDOC PROGRESS REPORT ---
Subjective Progress Note for:: 08/06/19 Subjective:: Patient seen to be resting comfortably. No distress noted. Awaiting discharge Reason For Visit: ACUTE ON CHRONIC CHF,CHRONIC A-FIB,DM TYPE 2,HTN,C Physical Exam Vital Signs: Temp Pulse Resp BP Pulse Ox 97.4 F 72 20 92/64 L 92 08/06/19 11:57 08/06/19 11:57 08/06/19 11:57 08/06/19 11:57 08/06/19 11:55 Intake & Output 08/05/19 08/06/19 08/07/19 06:59 06:59 06:59 Intake Total 1597 390 175 Output Total 1999 1100 Balance -403 390 -925 Weight 80 kg 72.6 kg 72.6 kg General appearance: PRESENT: no acute distress, cooperative, obese, well- developed, well-nourished Head exam: PRESENT: atraumatic, normocephalic Throat exam: PRESENT: tonsillogmegaly Neck exam: PRESENT: other - HD catheter Respiratory exam: PRESENT: clear to auscultation amelia, decreased breath sounds, symmetrical, unlabored Cardiovascular exam: PRESENT: irregular rhythm, +S1, +S2, other - Left sided ICD site is intact Rectal exam: PRESENT: deferred Musculoskeletal exam: PRESENT: normal inspection Neurological exam: PRESENT: alert, awake, oriented to person, oriented to place Psychiatric exam: PRESENT: appropriate affect Skin exam: PRESENT: dry, intact Results Laboratory Results: 08/06/19 05:05 08/06/19 05:05 08/05/19 08/06/19 08/06/19 15:26 05:05 05:05 WBC 5.4 RBC 3.35 L Hgb 9.6 L Hct 30.5 L MCV 91 MCH 28.7 MCHC 31.4 L RDW 16.9 H Plt Count 194 Sodium 133.0 L 133.4 L Potassium 4.2 3.9 Chloride 95 L 95 L Carbon Dioxide 29 29 Anion Gap 9 9 BUN 43 H 47 H Creatinine 5.00 H 5.93 H Est GFR ( Amer) 14 L 11 L Glucose 118 H 127 H Calcium 10.0 10.2 07/09/19 07/09/19 07/17/19 15:38 15:38 05:19 Creatine Kinase 33 L CK-MB (CK-2) 1.89 Troponin I 0.175 NT-Pro-B Natriuret Pep 91144 H 80964 H Impressions: Renal Ultrasound 07/12/19 00:00 IMPRESSION: 1. Increased echogenicity of the renal parenchyma and thinning of the renal cortices - clinical correlation for chronic medical renal disease is recommended. 2. No hydronephrosis. 3. Harris catheter within the urinary bladder. Chest Ultrasound 07/16/19 00:00 IMPRESSION: Small right pleural effusion. Guidance Fluoroscopy 07/28/19 00:00 IMPRESSION: IMAGE(S) OBTAINED DURING PROCEDURE. Chest X-Ray 07/28/19 15:17 IMPRESSION: No pneumothorax following right-sided central line placement as described. Persistent bilateral airspace disease most likely edema. There are persistent bilateral pleural effusions. Assessment & Plan - Diagnosis (1) Hypertension Qualifiers: Hypertension type: essential hypertension Qualified Code(s): I10 - Essential (primary) hypertension Is this a current diagnosis for this admission?: Yes Plan: Continue to watch blood pressure LV systolic dysfunction, may have pronounced response to antihypertensives. (2) Chronic a-fib Is this a current diagnosis for this admission?: Yes Plan: Rate controlled. Asymptomatic Continue present therapy Systemic anticoagulation with apixaban. (3) CHF (congestive heart failure) Qualifiers: Heart failure type: combined systolic and diastolic Heart failure chronicity: acute on chronic Qualified Code(s): I50.43 - Acute on chronic combined systolic (congestive) and diastolic (congestive) heart failure Is this a current diagnosis for this admission?: Yes Plan: has improved overall. Especially with institution of renal replacement therapy. (4) ICD (implantable cardioverter-defibrillator) in place Is this a current diagnosis for this admission?: Yes Plan: ICD in place
== END 2019-08-06 14:12 | DRG 981 ==
LOC: 3W 14:46
PROVIDERS: ADMIT Internal Medicine Geriatric Medicine; ATTEND Internal Medicine Geriatric Medicine
PROC: 06H033Z Insertion of Infusion Device into Inferior Vena Cava, Percutaneous Approach (ICD-10-PCS; 2019-07-26)
PROC: 5A1D70Z Performance of Urinary Filtration, Intermittent, Less than 6 Hours Per Day (ICD-10-PCS; 2019-07-26)
PROC: 02HV33Z Insertion of Infusion Device into Superior Vena Cava, Percutaneous Approach (ICD-10-PCS; 2019-07-28)
PROC: B519ZZA Fluoroscopy of Inferior Vena Cava, Guidance (ICD-10-PCS; 2019-07-28)
PROC: 5A1D70Z Performance of Urinary Filtration, Intermittent, Less than 6 Hours Per Day (ICD-10-PCS; 2019-07-28)
PROC: 0JH60WZ Insertion of Totally Implantable Vascular Access Device into Chest Subcutaneous Tissue and Fascia, Open Approach (ICD-10-PCS; principal; 2019-07-28 13:45)
PROC: 5A1D70Z Performance of Urinary Filtration, Intermittent, Less than 6 Hours Per Day (ICD-10-PCS; 2019-07-30)
PROC: 5A1D70Z Performance of Urinary Filtration, Intermittent, Less than 6 Hours Per Day (ICD-10-PCS; 2019-08-02)
PROC: 5A1D70Z Performance of Urinary Filtration, Intermittent, Less than 6 Hours Per Day (ICD-10-PCS; 2019-08-04)
PROC: 5A1D70Z Performance of Urinary Filtration, Intermittent, Less than 6 Hours Per Day (ICD-10-PCS; 2019-08-06)
PROC: 5A1D70Z Performance of Urinary Filtration, Intermittent, Less than 6 Hours Per Day (ICD-10-PCS; 2019-08-06)
DX: I13.2 Hypertensive heart and chronic kidney disease with heart failure and with stage 5 chronic kidney disease, or end stage renal disease (principal); I50.43 Acute on chronic combined systolic (congestive) and diastolic (congestive) heart failure; J18.9 Pneumonia, unspecified organism; N18.6 End stage renal disease; I48.20 Chronic atrial fibrillation, unspecified; E87.2 Acidosis; N17.9 Acute kidney failure, unspecified; N25.81 Secondary hyperparathyroidism of renal origin; N18.4 Chronic kidney disease, stage 4 (severe); E11.22 Type 2 diabetes mellitus with diabetic chronic kidney disease; I25.10 Atherosclerotic heart disease of native coronary artery without angina pectoris; E78.5 Hyperlipidemia, unspecified; I08.1 Rheumatic disorders of both mitral and tricuspid valves; I42.0 Dilated cardiomyopathy; E02 Subclinical iodine-deficiency hypothyroidism; M89.49 Other hypertrophic osteoarthropathy, multiple sites; E83.52 Hypercalcemia; M1A.9XX0 Chronic gout, unspecified, without tophus (tophi); Z20.828 Contact with and (suspected) exposure to other viral communicable diseases; E87.6 Hypokalemia; Z66 Do not resuscitate; I25.2 Old myocardial infarction; Z99.2 Dependence on renal dialysis; Z79.01 Long term (current) use of anticoagulants; Z95.5 Presence of coronary angioplasty implant and graft; Z95.810 Presence of automatic (implantable) cardiac defibrillator; Z87.891 Personal history of nicotine dependence; Z79.899 Other long term (current) drug therapy; Z87.828 Personal history of other (healed) physical injury and trauma
CPT/HCPCS: 00532; 36415; 36600; 71045; 71046; 76604; 76770; 77001; 80048; 80053; 81001; 82140; 82272; 82550; 82553; 82607; 82728; 82746; 82803; 82962; 83540; 83550; 83735; 83880; 83970; 84100; 84436; 84439; 84443; 84466; 84481; 84482; 84484; 85025; 85027; 85045; 85610; 86317; 86376; 86704; 87070; 87086; 87340; 87522; 87635; 93005; 93010; 93306; 94660; C1713; C1766; C1769; J0690; J1250; J1644; J1815; J1940; J2250; J2543; J2704; J3010; J3490; J7030; Q5105